=== PATIENT | female | born 1935 | race Two or more races ===

== ENCOUNTER 2017-04-03 08:41 | Inpatient (IN) | payer OTHER, MEDICAID ==
[~2017-04-03] VITALS: Ht 160 cm; Wt 54.4 kg
[2017-04-03 08:37] VITALS: BP 168/84
[2017-04-03] MEDS ORDERED: Cefepime HCl 1 GM in NS 55 ML IV SCH (09:00)
--- NOTE | 2017-04-03 09:11 | Emergency Room Report ---
History of Present Illness General Chief Complaint: Skin Rash/Abscess Source: Patient, EMS Present Illness HPI Patient presents with increasing pain over right lower leg and ankle. She states that there was a burning pain for about 5 days. It became severe in the last 2 days. It's now 5/10 when she stands and walks. She denies any fevers or chills. There's also change in the skin there. She has redness. She does know her last tetanus shot was. Pain is 7/10, burning when she is up, radiating to body, not involving calf. She also suffers from COPD. She denies any chest pain or shortness of breath. She denies cough. HTN and diabetes (though she denied latter to me). There is no nausea, vomiting, diarrhea, dysuria, change in bowel habits. She has 2 scars which are old from mosquito bites. Allergies: Coded Allergies: No Known Allergies (Unverified , 04/03/17) Patient History Past Medical History: see triage record Social History: Denies: smoking Social History Narrative with son Reviewed Nursing Documentation: PMH: Agreed, PSxH: Agreed Nursing Documentation-PMH Past Medical History: No History, Except For Hx Hypertension: Yes Hx Asthma: Yes Hx Diabetes: Yes Review of Systems All Other Systems: negative except mentioned in HPI Physical Exam Vital Signs Date Time Temp Pulse Resp B/P (MAP) Pulse Ox O2 Delivery O2 Flow Rate FiO2 04/03/17 08:37 98.4 70 20 168/84 100 Room Air Sp02 EP Interpretation: reviewed, normal General Appearance: GCS 15, thin, other - frail Head: normocephalic Eyes: bilateral eye normal inspection, bilateral eye PERRL ENT: moist mucus membranes Neck: supple Respiratory: lungs clear, normal breath sounds Cardiovascular #1: regular rate, rhythm Cardiovascular #2: 2+ radial (R) Gastrointestinal: normal inspection, normal bowel sounds, non tender, no mass, non-distended Musculoskeletal: back normal, normal range of motion, no calf tenderness, tender - with erythema anterior R lower with tender ankle Neurologic: alert, oriented x3, speech normal, grossly normal Psychiatric: mood/affect normal Skin: warm/dry, other - Present in the right lower extremity extending into the mid anterior lower leg. There is also scars bilaterally which he states are from mosquito bites when she was younger. Medical Decision Making Diagnostic Impression: Primary Impression: Cellulitis Qualified Codes: L03.115 - Cellulitis of right lower limb ER Course Patient presents with obvious cellulitis in the right lower leg. Differential also includes osteomyelitis, diabetes, renal dysfunction, DVT. Exam is against DVT at this time and also this doesn't appear to be superficial phlebitis. The patient has several comorbidities. Evaluation will be with sedimentation rate, x-rays, EKG and labs including blood culture lactate. Antibiotics will be started IV. EKG below, no acute injury. CXR with apical scars R and some COPD (min). Tib fib no osteo. Labs with leukocytosis, normal lytes. ESR elevated. Improved with treatment. IV antibiotics begun. Due to co-morbidities and how this appears/labs, patient admitted for IV antibiotics. Admit med Dr. Amador. Laboratory Tests Test 04/03/17 09:10 04/03/17 09:40 White Blood Count 10.7 K/UL (4.8-10.8) Red Blood Count 4.03 M/UL (4.20-5.40) L Hemoglobin 11.6 G/DL (12.0-16.0) L Hematocrit 37.1 % (37.0-47.0) Mean Corpuscular Volume 92 FL (80-99) Mean Corpuscular Hemoglobin 28.7 PG (27.0-31.0) Mean Corpuscular Hemoglobin Concent 31.2 G/DL (32.0-36.0) L Red Cell Distribution Width 12.7 % (11.6-14.8) Platelet Count 309 K/UL (150-450) Mean Platelet Volume 6.0 FL (6.5-10.1) L Neutrophils (%) (Auto) 77.0 % (45.0-75.0) H Lymphocytes (%) (Auto) 12.0 % (20.0-45.0) L Monocytes (%) (Auto) 9.9 % (1.0-10.0) Eosinophils (%) (Auto) 0.3 % (0.0-3.0) Basophils (%) (Auto) 0.8 % (0.0-2.0) Erythrocyte Sedimentation Rate 80 MM/HR (0-30) H Prothrombin Time 9.4 SEC (9.30-11.50) Prothrombin Time INR 0.9 (0.9-1.1) PTT 27 SEC (23-33) Sodium Level 142 mEQ/L (135-145) Potassium Level 4.4 mEQ/L (3.4-4.9) Chloride Level 101 mEQ/L (98-107) Carbon Dioxide Level 27 mEQ/L (20-30) Anion Gap 14 (5-15) Blood Urea Nitrogen 14 mg/dL (7-23) Creatinine 0.8 mg/dL (0.5-0.9) Estimate Glomerular Filtration Rate mL/min (>60) Glucose Level 135 mg/dL (74-106) H Lactic Acid Level 0.90 mmol/L (0.66-2.22) Calcium Level 9.5 mg/dL (8.6-10.2) Total Bilirubin 0.4 mg/dL (0.0-1.2) Aspartate Amino Transferase (AST) 21 U/L (5-40) Alanine Aminotransferase (ALT) 13 U/L (3-33) Alkaline Phosphatase 75 U/L (35-104) Total Creatine Kinase 91 U/L (26-140) Troponin I < 0.30 ng/mL (<=0.30) Pro-B-Type Natriuretic Peptide 460 pg/mL (0-450) H Total Protein 7.8 g/dL (6.6-8.7) Albumin 4.3 g/dL (3.5-5.2) Globulin 3.5 g/dL Albumin/Globulin Ratio 1.2 (1.0-2.7) Urine Color Yellow Urine Appearance Cloudy Urine pH 7 (4.5-8.0) Urine Specific [place] 1.005 (1.005-1.035) Urine Protein 3+ (NEGATIVE) H Urine Glucose (UA) Negative (NEGATIVE) Urine Ketones Negative (NEGATIVE) Urine Occult Blood 1+ (NEGATIVE) H Urine Nitrite Negative (NEGATIVE) Urine Bilirubin Negative (NEGATIVE) Urine Urobilinogen Normal MG/DL (0.0-1.0) Urine Leukocyte Esterase 1+ (NEGATIVE) H Urine RBC 0-2 /HPF (0 - 2) Urine WBC 2-4 /HPF (0 - 2) Urine Squamous Epithelial Cells Moderate /LPF (NONE/OCC) H Urine Bacteria Few /HPF (NONE) Urine Hyaline Casts 2-4 /LPF (NONE) H EKG Diagnostic Results Rate: normal Rhythm: NSR ST Segments: no acute changes Rhythm Strip Diag. Results EP Interpretation: yes Rhythm: NSR, no PVC's, no ectopy Chest X-Ray Diagnostic Results Chest X-Ray Diagnostic Results : Chest X-Ray Ordered: Yes # of Views/Limited/Complete: 1 View Indication: Other Interpretation: no consolidation, no effusion, no pneumothorax, other - apical scarring Impression: Other Electronically Signed by: Electronically signed by Michael Milton MD Other X-Ray Diagnostic Results Other X-Ray Diagnostic Results : X-Ray ordered: tib fib # of Views/Limited Vs Complete: 2 View Indication: Other EP Interpretation: Yes Interpretation: no dislocation, no soft tissue swelling, no fractures, other Impression: Other Electronically Signed by: Michael Milton MD Last Vital Signs Date Time Temp Pulse Resp B/P (MAP) Pulse Ox O2 Delivery O2 Flow Rate FiO2 04/03/17 22:01 86 18 97 Room Air 04/03/17 20:00 97.3 129/61 Status: improved Disposition: ADMITTED INPATIENT Condition: Serious Referrals: NOT CHOSEN MYNOR/,REFERRING (PCP) Michael Milton M.D. Apr 03, 2017 09:11
[2017-04-03] MEDS ORDERED: Tetanus/Diptheria/Pertussis Vaccine 0.5ml Syr IM ONE (09:15)
[2017-04-03] MEDS ORDERED: Ketorolac 30mg Inj IV ONE (09:15)
[2017-04-03] MEDS ORDERED: Cefepime 1gm vial ONE (09:19)
[2017-04-03] MEDS ORDERED: OMEPRAZOLE10 M1 ORAL (09:27)
[2017-04-03] MEDS ORDERED: ALBUTEROL2.5 MG/3 M INH (09:27)
[2017-04-03] MEDS ORDERED: METFORMIN HCL500 M1 ORAL (09:27)
[2017-04-03 09:35] LABS: BASOPHILS % (AUTO) 0.8 % (0.0-2.0); EOSINOPHILS % (AUTO) 0.3 % (0.0-3.0); MEAN CORPUSCULAR HEMOGLOBIN 28.7 PG (27.0-31.0); MEAN CORPUSCULAR HGB CONC 31.2 G/DL (32.0-36.0); MEAN CORPUSCULAR VOLUME 92 FL (80-99); MONOCYTES % (AUTO) 9.9 % (1.0-10.0); PLATELET COUNT 309 K/UL (150-450); RED BLOOD COUNT 4.03 M/UL (4.20-5.40); RED CELL DISTRIBUTION WIDTH 12.7 % (11.6-14.8); WHITE BLOOD COUNT 10.7 K/UL (4.8-10.8)
[2017-04-03 09:46] LABS: ALANINE AMINOTRANSFERASE 13 U/L (3-33); ALBUMIN/GLOBULIN RATIO 1.2 (1.0-2.7); ANION GAP 14 (5-15); ASPARTATE AMINO TRANSFERASE 21 U/L (5-40); CALCIUM 9.5 mg/dL (8.6-10.2); CARBON DIOXIDE 27 mEQ/L (20-30); CHLORIDE 101 mEQ/L (98-107); CREATININE 0.8 mg/dL (0.5-0.9); HEMOLYSIS 1; POTASSIUM 4.4 mEQ/L (3.4-4.9); SODIUM 142 mEQ/L (135-145); TOTAL PROTEIN 7.8 g/dL (6.6-8.7); TROPONIN I < 0.30 ng/mL (<=0.30)
[2017-04-03 09:50] LABS: INR 0.9 (0.9-1.1); PROTHROMBIN TIME 9.4 SEC (9.30-11.50)
[2017-04-03 09:55] VITALS: BP 134/47
[2017-04-03 10:01] LABS: APPEARANCE,URINE CLOUDY; KETONES,URINE NEGATIVE (NEGATIVE); LEUKOCYTE ESTERASE ,URINE 1+ (NEGATIVE); NITRITE,URINE NEGATIVE (NEGATIVE); PH,URINE 7 (4.5-8.0); PROTEIN,URINE 3+ (NEGATIVE); UROBILINOGEN,URINE NORMAL MG/DL (0.0-1.0)
[2017-04-03] MEDS ORDERED: LOSARTAN POTASS25 M1 PO (10:28)
[2017-04-03] MEDS ORDERED: MONTELUKAST SOD10 MG ORAL (10:28)
[2017-04-03] MEDS ORDERED: NORVASC10 MG ORAL (10:28)
[2017-04-03] MEDS ORDERED: PROTONIX40 MG ORAL (10:28)
[2017-04-03] MEDS ORDERED: SIMVASTATIN20 MG ORAL (10:28)
[2017-04-03] MEDS ORDERED: PROAIR HFA8.5 GM INH (10:28)
[2017-04-03 10:34] LABS: RBC,URINE 0-2 /HPF (0 - 2)
[2017-04-03 10:35] LABS: BACTERIA,URINE FEW /HPF; SQUAMOUS EPITHELIAL CELL,UR MODERATE /LPF (NONE/OCC)
[2017-04-03 10:40] LABS: ERYTHROCYTE SEDIMENTATION RATE 80 MM/HR (0-30)
--- NOTE | 2017-04-03 11:09 | Diagnostic Imaging Report ---
Indication: Pain Comparison: None Findings: Two views of the right tibia and fibula were obtained. Bones are osteopenic. There is no definite fracture or malalignment. Vascular calcifications are present. Impression: No acute injury
--- NOTE | 2017-04-03 11:09 | Diagnostic Imaging Report ---
Indication: Dyspnea Comparison: None A single view chest radiograph was obtained. Findings: No definite infiltrate or pulmonary vascular congestion identified. The heart is enlarged. The aorta is mildly enlarged consistent with atherosclerotic vascular disease. The bones are osteopenic. Impression: No acute disease
[2017-04-03 11:14] VITALS: BP 132/56
[2017-04-03 12:43] VITALS: BP 124/48
[2017-04-03] MEDS ORDERED: Vancomycin 1gm/D5W 275ml IVPB ONE ×2 (15:00)
[2017-04-03 16:00] VITALS: BP 121/53
[2017-04-03] MEDS: Albuterol 90mcg Inhaler 8gm INH SCH ×2 (16:00→19:00)
[2017-04-03] MEDS ORDERED: Albuterol ud Inhalation HHN PRN (16:00)
[2017-04-03] MEDS: NovoLOG Insulin Flexpen SUBQ SCH ×2 (16:30→21:00)
--- NOTE | 2017-04-03 16:45 | Infectious Diseases Prog Note ---
Assessment/Plan Problems: (1) Cellulitis Assessment & Plan: of the right lower extremities , will start vancomycin, continue cefepime and stop levaquin. will send blood culture to rule out sepsis (2) Diabetes mellitus Assessment & Plan: recommend tight glycemic control to keep blood glucose between 80-120 Subjective Allergies: Coded Allergies: No Known Allergies (Unverified , 04/03/17) Objective Vital Signs Last 24 Hour Vital Signs Date Time Temp Pulse Resp B/P (MAP) Pulse Ox O2 Delivery O2 Flow Rate FiO2 04/03/17 16:00 99.9 77 20 121/53 95 Room Air 04/03/17 13:06 74 17 116/47 99 Room Air 04/03/17 12:43 98.6 75 19 124/48 99 Room Air 04/03/17 11:14 98.6 81 16 132/56 100 Room Air 04/03/17 09:55 98.4 80 14 134/47 100 Room Air 04/03/17 08:37 98.4 70 20 168/84 100 Room Air 04/03/17 08:37 98.4 70 20 168/84 100 Room Air Height (Feet): 5 Height (Inches): 3.00 Weight (Pounds): 120 Laboratory Tests Test 04/03/17 09:10 04/03/17 09:40 White Blood Count 10.7 K/UL (4.8-10.8) Red Blood Count 4.03 M/UL (4.20-5.40) L Hemoglobin 11.6 G/DL (12.0-16.0) L Hematocrit 37.1 % (37.0-47.0) Mean Corpuscular Volume 92 FL (80-99) Mean Corpuscular Hemoglobin 28.7 PG (27.0-31.0) Mean Corpuscular Hemoglobin Concent 31.2 G/DL (32.0-36.0) L Red Cell Distribution Width 12.7 % (11.6-14.8) Platelet Count 309 K/UL (150-450) Mean Platelet Volume 6.0 FL (6.5-10.1) L Neutrophils (%) (Auto) 77.0 % (45.0-75.0) H Lymphocytes (%) (Auto) 12.0 % (20.0-45.0) L Monocytes (%) (Auto) 9.9 % (1.0-10.0) Eosinophils (%) (Auto) 0.3 % (0.0-3.0) Basophils (%) (Auto) 0.8 % (0.0-2.0) Erythrocyte Sedimentation Rate 80 MM/HR (0-30) H Prothrombin Time 9.4 SEC (9.30-11.50) Prothromb Time International Ratio 0.9 (0.9-1.1) Activated Partial Thromboplast Time 27 SEC (23-33) Sodium Level 142 mEQ/L (135-145) Potassium Level 4.4 mEQ/L (3.4-4.9) Chloride Level 101 mEQ/L (98-107) Carbon Dioxide Level 27 mEQ/L (20-30) Anion Gap 14 (5-15) Blood Urea Nitrogen 14 mg/dL (7-23) Creatinine 0.8 mg/dL (0.5-0.9) Estimat Glomerular Filtration Rate mL/min (>60) Glucose Level 135 mg/dL (74-106) H Lactic Acid Level 0.90 mmol/L (0.66-2.22) Calcium Level 9.5 mg/dL (8.6-10.2) Total Bilirubin 0.4 mg/dL (0.0-1.2) Aspartate Amino Transf (AST/SGOT) 21 U/L (5-40) Alanine Aminotransferase (ALT/SGPT) 13 U/L (3-33) Alkaline Phosphatase 75 U/L (35-104) Total Creatine Kinase 91 U/L (26-140) Troponin I < 0.30 ng/mL (<=0.30) Pro-B-Type Natriuretic Peptide 460 pg/mL (0-450) H Total Protein 7.8 g/dL (6.6-8.7) Albumin 4.3 g/dL (3.5-5.2) Globulin 3.5 g/dL Albumin/Globulin Ratio 1.2 (1.0-2.7) Urine Color Yellow Urine Appearance Cloudy Urine pH 7 (4.5-8.0) Urine Specific [place] 1.005 (1.005-1.035) Urine Protein 3+ (NEGATIVE) H Urine Glucose (UA) Negative (NEGATIVE) Urine Ketones Negative (NEGATIVE) Urine Occult Blood 1+ (NEGATIVE) H Urine Nitrite Negative (NEGATIVE) Urine Bilirubin Negative (NEGATIVE) Urine Urobilinogen Normal MG/DL (0.0-1.0) Urine Leukocyte Esterase 1+ (NEGATIVE) H Urine RBC 0-2 /HPF (0 - 2) Urine WBC 2-4 /HPF (0 - 2) Urine Squamous Epithelial Cells Moderate /LPF (NONE/OCC) H Urine Bacteria Few /HPF (NONE) Urine Hyaline Casts 2-4 /LPF (NONE) H Current Medications Medications (Trade) Dose Ordered Sig/Lora Route PRN Reason Start Time Stop Time Status Last Admin Dose Admin Acetaminophen (Tylenol) 650 mg Q4H PRN ORAL Mild Pain/Temp > 100.5 04/03/17 14:30 05/03/17 14:29 Albuterol Sulfate (Proventil MDI) 1 puff Q6HRT INH 04/03/17 16:00 05/03/17 15:59 Albuterol Sulfate (Proventil) 2.5 mg Q4H PRN HHN Shortness of Breath 04/03/17 16:00 04/08/17 15:59 Amlodipine Besylate (Norvasc) 10 mg DAILY ORAL 04/04/17 09:00 05/04/17 08:59 Dextrose (Dextrose 50%) STAT PRN IV Hypoglycemia 04/03/17 14:30 05/03/17 14:29 Insulin Aspart (NovoLOG) BEFORE MEALS AND HS SUBQ 04/03/17 16:30 05/03/17 16:29 Losartan Potassium (Cozaar) 25 mg DAILY ORAL 04/04/17 09:00 05/04/17 08:59 Metformin HCl (Glucophage) 500 mg TWICE A DAY ORAL 04/03/17 18:00 05/03/17 17:59 Montelukast Sodium (Singulair) 10 mg QPM ORAL 04/03/17 16:30 05/03/17 16:29 Pantoprazole (Protonix) 40 mg DAILY ORAL 04/04/17 09:00 05/04/17 08:59 Vancomycin HCl (Vanco rx to dose) 1 ea DAILY PRN MISC Per rx protocol 04/03/17 14:15 05/03/17 14:14 Vancomycin/Sodium Chloride 250 ml @ 166.667 mls/hr Q24H IVPB 04/04/17 15:00 04/09/17 14:59 Jacey Child M.D. Apr 03, 2017 16:44
[2017-04-03] MEDS: Montelukast 10mg tablet ORAL SCH (18:07)
[2017-04-03] MEDS: metFORMIN 500mg tab ORAL SCH (18:07)
[2017-04-03 20:00] VITALS: BP 129/61
[2017-04-04] VITALS: BP 124/60
[2017-04-04] MEDS: Albuterol 90mcg Inhaler 8gm INH SCH ×5 (01:00→23:07)
--- NOTE | 2017-04-04 01:45 | Consultation ---
DATE OF CONSULTATION: 04/03/2017 INFECTIOUS DISEASE CONSULTATION CONSULTING PHYSICIAN: Jacey Child M.D. ATTENDING PHYSICIAN: Christina Amador M.D. REQUESTING PHYSICIAN: Christina Amador M.D. Reason For Consultation: Right lower extremity cellulitis, recommendation for antibiotic therapy. History Of Present Illness: The patient is an 81-year-old female with past medical history of diabetes and asthma, who presented to [facility] Emergency Room with right lower extremity redness, edema, and difficulty walking. This started about 3 days ago as per her son who was translating at the bedside. The patient developed redness and erythema at the lower posterior aspect of her right leg. She was unable to put weight or walk well on it. It became red and tender. She had low-grade fever, but no chills. The patient denied any trauma, wounds, or scratching to the right lower extremity. She had cellulitis in the same leg happened a couple of months ago. In the emergency room, the patient had normal temperature. The patient was admitted to the hospital for IV antibiotic treatment and further management, and I was consulted by the primary provider for antibiotic choice and further recommendation. PAST MEDICAL HISTORY: Significant for asthma and diabetes. PAST SURGICAL HISTORY: Negative. Family History: She lives at home with her son. No recent drugs, tobacco, or alcohol. ALLERGIES: She has no known drug allergy. Medications: The patient was started on cefepime and Levaquin in the emergency room. For the rest of her medications, please refer to MAR. Laboratory Data: Labs showed white count of 10.7, hemoglobin of 11.6, and platelet count of 309,000. BUN of 14, creatinine of 0.8. AST of 21, ALT of 13. Urinalysis showed negative nitrite, +1 leukocyte esterase, WBC 2 to 4, and a few bacteria. IMAGING: Chest x-ray showed no acute disease. Tibia and fibula x-ray showed no acute injury. No definite fracture or malalignment. PHYSICAL EXAMINATION: Vital signs: Temperature 99.9, pulse 77, respirations 20, blood pressure 121/53, and saturation 95% on room air. General: An elderly female, Wallisian speaker, lying in bed, not in distress. HEENT: Normocephalic, atraumatic. Pupils are reactive to light. Moist oral mucosa. NECK: Supple. No lymphadenopathy. CARDIOVASCULAR: Regular rate and rhythm. No murmur. LUNGS: Clear bilaterally. No wheezing or rhonchi. Abdomen: Soft, nontender, nondistended. Positive bowel sounds. No hepatosplenomegaly. Extremities: She had redness and edema in the right lower extremity above the Achilles tendon and redness with tenderness and decreased range of motion in the right ankle. ASSESSMENT AND RECOMMENDATION: 1. Right lower extremity cellulitis. We will start vancomycin and continue cefepime empiric treatment to treat cellulitis in diabetic patient. We will stop levofloxacin. We will send blood culture to rule out bacteremia. 2. Diabetes. Recommend tight glycemic control to keep blood glucose between 80 to 120. Thank you for the consult. Infectious diseases will continue to follow. Jacey Child M.D. DR: Dennis JOB#: [id number] CC:
[2017-04-04 04:53] VITALS: BP 127/60
[2017-04-04] MEDS: NovoLOG Insulin Flexpen SUBQ SCH ×4 (06:19→20:17)
[2017-04-04 08:00] VITALS: BP 133/64
[2017-04-04] MEDS: Losartan 25mg tab ORAL SCH (10:19)
[2017-04-04] MEDS: metFORMIN 500mg tab ORAL SCH ×2 (10:19→18:05)
[2017-04-04 12:00] VITALS: BP 132/70
[2017-04-04] MEDS: Vancomycin 750mg/NS 250ml IVPB SCH (15:03)
[2017-04-04 16:00] VITALS: BP 132/77
[2017-04-04] MEDS: Montelukast 10mg tablet ORAL SCH (17:14)
--- NOTE | 2017-04-04 17:45 | Infectious Diseases Prog Note ---
Assessment/Plan Problems: (1) Cellulitis Assessment & Plan: of the right lower extremities , continue vancomycin, and cefepime , await blood culture to rule out sepsis (2) Diabetes mellitus Assessment & Plan: recommend tight glycemic control to keep blood glucose between 80-120 Subjective Constitutional: Reports: no symptoms HEENT: Reports: no symptoms Respiratory: Reports: no symptoms Breasts: Reports: no symptoms Cardiovascular: Reports: no symptoms Gastrointestinal/Abdominal: Reports: no symptoms Neurologic: Reports: no symptoms Psychiatric: Reports: no symptoms Skin: Reports: no symptoms Allergies: Coded Allergies: No Known Allergies (Unverified , 04/03/17) Objective Vital Signs Last 24 Hour Vital Signs Date Time Temp Pulse Resp B/P (MAP) Pulse Ox O2 Delivery O2 Flow Rate FiO2 04/04/17 16:00 96.9 89 18 132/77 97 Room Air 04/04/17 13:52 76 18 98 Room Air 04/04/17 13:45 87 16 99 Room Air 04/04/17 12:00 95.0 97 22 132/70 95 Room Air 04/04/17 10:19 144/69 04/04/17 10:19 84 144/69 04/04/17 08:00 99.0 95 18 133/64 91 Room Air 04/04/17 07:44 77 16 97 Room Air 04/04/17 07:44 Room Air 04/04/17 04:53 97.8 85 20 127/60 94 Room Air 04/04/17 01:21 Room Air 04/04/17 01:20 Room Air 04/04/17 00:00 97.4 84 18 124/60 96 Room Air 04/03/17 22:01 86 18 97 Room Air 04/03/17 22:01 86 18 97 04/03/17 21:59 86 18 98 Room Air 04/03/17 20:00 97.3 86 18 129/61 95 Room Air Height (Feet): 5 Height (Inches): 3.00 Weight (Pounds): 120 General Appearance: WD/WN, no acute distress HEENT: normocephalic, atraumatic, anicteric Respiratory/Chest: chest wall non-tender, lungs clear, normal breath sounds Cardiovascular: normal peripheral pulses, normal rate, regular rhythm Abdomen: normal bowel sounds, soft, non tender, no organomegaly, non distended , no mass, no scars Extremities: no cyanosis, no clubbing, other - right leg redness and swelling Skin: no rash, no lesions Current Medications Medications (Trade) Dose Ordered Sig/Lora Route PRN Reason Start Time Stop Time Status Last Admin Dose Admin Acetaminophen (Tylenol) 650 mg Q4H PRN ORAL Mild Pain/Temp > 100.5 04/03/17 14:30 05/03/17 14:29 Albuterol Sulfate (Proventil MDI) 1 puff Q6HRT INH 04/03/17 16:00 05/03/17 15:59 04/04/17 13:50 Albuterol Sulfate (Proventil) 2.5 mg Q4H PRN HHN Shortness of Breath 04/03/17 16:00 04/08/17 15:59 Amlodipine Besylate (Norvasc) 10 mg DAILY ORAL 04/04/17 09:00 05/04/17 08:59 04/04/17 10:19 Dextrose (Dextrose 50%) STAT PRN IV Hypoglycemia 04/03/17 14:30 05/03/17 14:29 Insulin Aspart (NovoLOG) BEFORE MEALS AND HS SUBQ 04/03/17 16:30 05/03/17 16:29 Losartan Potassium (Cozaar) 25 mg DAILY ORAL 04/04/17 09:00 05/04/17 08:59 04/04/17 10:19 Metformin HCl (Glucophage) 500 mg TWICE A DAY ORAL 04/03/17 18:00 05/03/17 17:59 04/04/17 10:19 Montelukast Sodium (Singulair) 10 mg QPM ORAL 04/03/17 16:30 05/03/17 16:29 04/04/17 17:14 Pantoprazole (Protonix) 40 mg ACBREAKFAST ORAL 04/05/17 06:30 05/04/17 08:59 Vancomycin HCl (Vanco rx to dose) 1 ea DAILY PRN MISC Per rx protocol 04/03/17 14:15 05/03/17 14:14 Vancomycin/Sodium Chloride 250 ml @ 166.667 mls/hr Q24H IVPB 04/04/17 15:00 04/09/17 14:59 04/04/17 15:03 Jacey Child M.D. Apr 04, 2017 17:45
[2017-04-04] MEDS: Cefepime HCl 1 GM in D5W 55 ML IVPB SCH (19:00)
[2017-04-04] MEDS ORDERED: NS 275ml ONE (19:58)
[2017-04-04] MEDS ORDERED: Tubing IV Secondary IV ONE (19:58)
[2017-04-04 20:00] VITALS: BP 130/58
--- NOTE | 2017-04-04 22:45 | History and Physical Report ---
DATE OF ADMISSION: 04/03/2017 Reason For Admission/History of Present Illness: The patient is admitted for cellulitis of the right leg. The patient speaks Amharic. The history is obtained through a travel rn. The patient complains of pain in the right lower extremity and difficulty walking because of the pain for the past couple of days. The patient denies fever or chills. Denies nausea, vomiting, or diarrhea. Denies abdominal pain. Denies shortness of breath. Denies cough. Past Medical History: Significant for hypertension, NIDDM, asthma, GERD, hyperlipidemia, and cataract. Past Surgical History: Oophorectomy, hysterectomy, and cataract surgery. Medications: Amlodipine, losartan, metformin, montelukast, omeprazole, and simvastatin. ALLERGIES: No known allergies. Social History: Denies history of smoking. No history of alcohol or illicit drugs. Review of Systems: HEENT: Denies headaches. Respiratory: Denies shortness of breath. Denies cough. Cardiovascular: Denies chest pain. Gastrointestinal: Denies nausea, vomiting, or diarrhea. Extremities: There is right lower extremity pain more than the left lower extremity pain and difficulty walking because of the pain. Central Nervous System: No change in vision or speech pattern. Denies headache. PHYSICAL EXAMINATION: Vital Signs: Basically temperature is 97.4 degrees, pulse 84, and blood pressure 124/60. HEENT: PERRLA. NECK: Supple. No lymphadenopathy. CHEST: Clear to auscultation. Gastrointestinal: Soft, nontender, and nondistended. No organomegaly. EXTREMITIES: No edema. Moves all 4 extremities. SENSORY: Intact to light touch. Neurologic: Reflexes are equal on both sides. Lower extremity mild tenderness on the right lower leg as well as erythema and warmth to touch in the bilateral lower extremity, otherwise, moves all 4 extremities. Cranial nerves II through XII are intact except the patient does have poor vision. Laboratory And Diagnostic Data: WBC of 10.7, hemoglobin 11.6, and platelets of 309,000. Sodium 142, potassium 4.4, BUN of 14, creatinine 0.8, and glucose of 125. BNP of 460. Assessment And Plan: Elevated BNP. I have asked rn pediatric to see the patient for that reason, and for the cellulitis of right lower extremity, consult with Dr. Child. The patient has a history of chronic deep vein thrombosis. For that, I have consulted Dr. Jeffries to see if the patient has any acute deep vein thrombosis or not. Christina Amador M.D. DR: CORONA JOB#: [id number] CC:
[2017-04-05] VITALS (7 sets, daily range): BP systolic 110–136; BP diastolic 51–67
[2017-04-05] MEDS: NovoLOG Insulin Flexpen SUBQ SCH ×4 (05:50→20:00)
[2017-04-05] MEDS: Albuterol 90mcg Inhaler 8gm INH SCH ×3 (07:40→19:35)
[2017-04-05] MEDS: Losartan 25mg tab ORAL SCH (09:00)
--- NOTE | 2017-04-05 09:15 | Consultation ---
DATE OF CONSULTATION: 04/04/2017 NOTE: POOR AUDIO QUALITY HEMATOLOGY/ONCOLOGY CONSULTATION CONSULTING PHYSICIAN: Rigo Jeffries M.D. REFERRING PHYSICIAN: Christina Amador M.D. REASON FOR CONSULTATION: Evaluation of DVT history. IDENTIFICATION DATA: Dear Dr. Christina Amador, The patient is a pleasant 81-year-old female who I have seen before. She has a past medical history, which is significant for DVT of the right upper and lower extremity, at this time presents to [facility] with right lower extremity redness, weakness, and difficulty with walking, developed redness and weakness on the right side of her leg posteriorly, unable to put weight on it. It became red and tender. Low-grade fever noted, has several months ago, had normal temperature, admitted to the hospital for IV antibiotics and further management. PAST MEDICAL HISTORY: Asthma and diabetes mellitus. PAST SURGICAL HISTORY: None known. MEDICATIONS: Current medications have been reviewed. . ALLERGIES: No known drug allergies. SOCIAL HISTORY: No recent alcohol, tobacco, or illicit drug use. FAMILY HISTORY: Noncontributory. Review of systems: Twelve-point review of systems otherwise negative except as noted in the HPI. PHYSICAL EXAMINATION: GENERAL: The patient is in no acute distress. Vital signs: Temperature is 98 degrees Fahrenheit, pulse rate 70, respiratory rate 12, and blood pressure 126/62. PULMONARY: Decreased breath sounds. Some crackles noted. CARDIOVASCULAR: Regular rate. No S3 or S4. Abdomen: Soft, nontender, and nondistended. Positive bowel sounds. No hepatosplenomegaly noted. Laboratory data: WBC 10.7, hemoglobin 11.6, hematocrit 34, and platelet count 309,000. noted for UTI. ASSESSMENT AND PLAN: 1. Deep venous thrombosis history. Duplex of the lower extremity ordered and revealed . She was recanalized superficial femoral popliteal vein. She does not require anticoagulation. She does not have a deep venous thrombosis on the that side . 2. Right lower extremity cellulitis, on antibiotics as per ID service. 3. Diabetes mellitus. Tight glucose control between 80 and 120. A1c is pending. 4. Continue to closely monitor her antibiotics. I appreciate the consultation. Rigo Jeffries M.D. DR: Tiffanie JOB#: [id number] CC:
[2017-04-05] MEDS: metFORMIN 500mg tab ORAL SCH ×2 (09:24→19:00)
[2017-04-05] MEDS: Cefepime HCl 1 GM in D5W 55 ML IVPB SCH ×2 (10:58→20:04)
[2017-04-05] MEDS: Vancomycin 750mg/NS 250ml IVPB SCH (15:16)
[2017-04-05] MEDS: Montelukast 10mg tablet ORAL SCH (17:41)
--- NOTE | 2017-04-05 19:15 | Infectious Diseases Prog Note ---
Assessment/Plan Problems: (1) Cellulitis Assessment & Plan: of the right lower extremities , improving on vancomycin, and cefepime , await blood culture to rule out sepsis (2) Diabetes mellitus Assessment & Plan: recommend tight glycemic control to keep blood glucose between 80-120 (3) Achilles tendinitis Assessment & Plan: recommend grocery clerk checking eval Subjective Constitutional: Reports: no symptoms HEENT: Reports: no symptoms Respiratory: Reports: no symptoms Breasts: Reports: no symptoms Cardiovascular: Reports: no symptoms Gastrointestinal/Abdominal: Reports: no symptoms Genitourinary: Reports: no symptoms Neurologic: Reports: no symptoms Musculoskeletal: Reports: pain Allergies: Coded Allergies: No Known Allergies (Unverified , 04/03/17) Objective Vital Signs Last 24 Hour Vital Signs Date Time Temp Pulse Resp B/P (MAP) Pulse Ox O2 Delivery O2 Flow Rate FiO2 04/05/17 16:00 99.0 79 19 126/55 95 Room Air 04/05/17 13:32 85 16 97 Room Air 04/05/17 13:32 88 16 97 Room Air 04/05/17 12:00 98.4 81 17 119/56 96 Room Air 04/05/17 09:14 82 110/67 04/05/17 09:00 110/67 04/05/17 09:00 82 110/67 04/05/17 08:00 98.1 81 18 125/62 96 Room Air 04/05/17 07:41 75 16 96 Room Air 04/05/17 07:38 75 16 95 Room Air 04/05/17 04:00 98.2 74 18 118/53 94 Room Air 04/05/17 00:00 98.1 75 19 120/51 93 Room Air 04/04/17 23:09 Room Air 04/04/17 20:11 Room Air 04/04/17 20:11 89 16 95 Room Air 04/04/17 20:00 101.7 87 19 130/58 95 Room Air Height (Feet): 5 Height (Inches): 3.00 Weight (Pounds): 120 General Appearance: WD/WN, no acute distress HEENT: normocephalic, atraumatic, anicteric, mucous membranes moist Respiratory/Chest: chest wall non-tender, lungs clear, normal breath sounds, no respiratory distress Cardiovascular: normal peripheral pulses, normal rate, regular rhythm, no gallop/murmur, no JVD Abdomen: normal bowel sounds, soft, non tender, no organomegaly, non distended , no mass Extremities: no cyanosis, no clubbing Skin: no rash, no lesions, no ulcers Microbiology Date/Time Source Procedure Growth Status 04/03/17 09:10 Blood Blood Culture - Preliminary NO GROWTH AFTER 24 HOURS Resulted 04/03/17 08:55 Blood Blood Culture - Preliminary NO GROWTH AFTER 24 HOURS Resulted Current Medications Medications (Trade) Dose Ordered Sig/Lora Route PRN Reason Start Time Stop Time Status Last Admin Dose Admin Acetaminophen (Tylenol) 650 mg Q4H PRN ORAL Mild Pain/Temp > 100.5 04/03/17 14:30 05/03/17 14:29 Albuterol Sulfate (Proventil MDI) 1 puff Q6HRT INH 04/03/17 16:00 05/03/17 15:59 04/05/17 13:30 Albuterol Sulfate (Proventil) 2.5 mg Q4H PRN HHN Shortness of Breath 04/03/17 16:00 04/08/17 15:59 Amlodipine Besylate (Norvasc) 10 mg DAILY ORAL 04/04/17 09:00 05/04/17 08:59 04/04/17 10:19 Cefepime HCl 1 gm/ Dextrose 55 ml @ 110 mls/hr EVERY 12 HOURS IVPB 04/04/17 19:00 04/11/17 18:59 04/05/17 10:58 Dextrose (Dextrose 50%) STAT PRN IV Hypoglycemia 04/03/17 14:30 05/03/17 14:29 Insulin Aspart (NovoLOG) BEFORE MEALS AND HS SUBQ 04/03/17 16:30 05/03/17 16:29 Losartan Potassium (Cozaar) 25 mg DAILY ORAL 04/04/17 09:00 05/04/17 08:59 04/04/17 10:19 Metformin HCl (Glucophage) 500 mg TWICE A DAY ORAL 04/03/17 18:00 05/03/17 17:59 04/05/17 19:00 Montelukast Sodium (Singulair) 10 mg QPM ORAL 04/03/17 16:30 05/03/17 16:29 04/05/17 17:41 Pantoprazole (Protonix) 40 mg ACBREAKFAST ORAL 04/05/17 06:30 05/04/17 08:59 04/05/17 05:49 Vancomycin HCl (Vanco rx to dose) 1 ea DAILY PRN MISC Per rx protocol 04/03/17 14:15 05/03/17 14:14 Vancomycin/Sodium Chloride 250 ml @ 166.667 mls/hr Q24H IVPB 04/04/17 15:00 04/09/17 14:59 04/05/17 15:16 Jacey Child M.D. Apr 05, 2017 19:15
--- NOTE | 2017-04-05 20:43 | General Progress Note ---
Assessment/Plan Problem List: (1) Cellulitis ICD Codes: L03.90 - Cellulitis, unspecified SNOMED: 807583850 Qualifiers: Qualified Codes: L03.115 - Cellulitis of right lower limb (2) Diabetes mellitus ICD Codes: E11.9 - Type 2 diabetes mellitus without complications SNOMED: 74735239 (3) Achilles tendinitis ICD Codes: M76.60 - Achilles tendinitis, unspecified leg SNOMED: 77529914 Status: progressing Assessment/Plan tendinitis achilles consulted podiatry cellulitis improving Subjective ROS Limited/Unobtainable: Yes Allergies: Coded Allergies: No Known Allergies (Unverified , 04/03/17) Objective Last 24 Hour Vital Signs Date Time Temp Pulse Resp B/P (MAP) Pulse Ox O2 Delivery O2 Flow Rate FiO2 04/05/17 20:00 97.3 96 18 136/63 97 Room Air 04/05/17 19:37 90 18 96 Room Air 04/05/17 19:35 90 18 96 Room Air 04/05/17 16:00 99.0 79 19 126/55 95 Room Air 04/05/17 13:32 85 16 97 Room Air 04/05/17 13:32 88 16 97 Room Air 04/05/17 12:00 98.4 81 17 119/56 96 Room Air 04/05/17 09:14 82 110/67 04/05/17 09:00 110/67 04/05/17 09:00 82 110/67 04/05/17 08:00 98.1 81 18 125/62 96 Room Air 04/05/17 07:41 75 16 96 Room Air 04/05/17 07:38 75 16 95 Room Air 04/05/17 04:00 98.2 74 18 118/53 94 Room Air 04/05/17 00:00 98.1 75 19 120/51 93 Room Air 04/04/17 23:09 Room Air Intake and Output 04/05/17 04/06/17 19:00 07:00 Intake Total 750 ml Balance 750 ml Intake Oral 750 ml # Voids 2 Height (Feet): 5 Height (Inches): 3.00 Weight (Pounds): 120 Cardiovascular: normal rate Respiratory/Chest: lungs clear Abdomen: soft Christina Amador MD Apr 05, 2017 20:43
--- NOTE | 2017-04-05 21:07 | General Progress Note ---
Assessment/Plan Assessment/Plan ASSESSMENT AND PLAN: 1. Deep venous thrombosis history. Duplex of the lower extremity ordered and revealed chronic recanalized thrombus. She does not require anticoagulation. 2. Right lower extremity cellulitis, on antibiotics as per ID service. 3. Diabetes mellitus. Tight glucose control between 80 and 120. Subjective Allergies: Coded Allergies: No Known Allergies (Unverified , 04/03/17) All Systems: reviewed and negative except above Subjective no bleeding, no fevers Objective Last 24 Hour Vital Signs Date Time Temp Pulse Resp B/P (MAP) Pulse Ox O2 Delivery O2 Flow Rate FiO2 04/05/17 20:00 97.3 96 18 136/63 97 Room Air 04/05/17 19:37 90 18 96 Room Air 04/05/17 19:35 90 18 96 Room Air 04/05/17 16:00 99.0 79 19 126/55 95 Room Air 04/05/17 13:32 85 16 97 Room Air 04/05/17 13:32 88 16 97 Room Air 04/05/17 12:00 98.4 81 17 119/56 96 Room Air 04/05/17 09:14 82 110/67 04/05/17 09:00 110/67 04/05/17 09:00 82 110/67 04/05/17 08:00 98.1 81 18 125/62 96 Room Air 04/05/17 07:41 75 16 96 Room Air 04/05/17 07:38 75 16 95 Room Air 04/05/17 04:00 98.2 74 18 118/53 94 Room Air 04/05/17 00:00 98.1 75 19 120/51 93 Room Air 04/04/17 23:09 Room Air Intake and Output 04/05/17 04/06/17 19:00 07:00 Intake Total 750 ml Balance 750 ml Intake Oral 750 ml # Voids 2 Height (Feet): 5 Height (Inches): 3.00 Weight (Pounds): 120 General Appearance: no apparent distress EENT: normal ENT inspection Neck: normal alignment Cardiovascular: normal rate Respiratory/Chest: lungs clear Neurologic: outreach rep II-XII grossly normal Skin: normal pigmentation, warm/dry Rigo Jeffries Apr 05, 2017 21:07
[2017-04-06] VITALS: BP 121/71
[2017-04-06] MEDS: Albuterol 90mcg Inhaler 8gm INH SCH ×4 (01:36→19:59)
[2017-04-06 03:36] VITALS: BP 126/55
[2017-04-06] MEDS: NovoLOG Insulin Flexpen SUBQ SCH ×4 (06:28→21:00)
[2017-04-06 08:00] VITALS: BP 123/54
[2017-04-06] MEDS: Losartan 25mg tab ORAL SCH (08:25)
[2017-04-06] MEDS: Cefepime HCl 1 GM in D5W 55 ML IVPB SCH ×2 (08:25→20:40)
[2017-04-06] MEDS: metFORMIN 500mg tab ORAL SCH ×2 (08:26→18:03)
--- NOTE | 2017-04-06 10:09 | Consultation ---
Consult Note Consult Note PODIATRY CONSULTATION DATE: 04/06/17 REASON FOR CONSULT: RIGHT ANKLE PAIN CONSULTING PHYSICIAN: SHILPA MEYERS DPM COVERING FOR: RICHARD WOLFE DPM HISTORY OF PRESENT ILLNESS: History was obtained with use of nurse who helped to translate since patient is Kinyarwanda speaking. Patient is an 81 year old female with history of right ankle pain that started 04/03/17. Patient states she did not experience a fall or any trauma. Patient was walking well without any complications on 04/02/17. Patient was unable to bear weight on the right foot and had difficulty plantarflexing the foot. No recent changes in medication. PAST MEDICAL HISTORY: ASTHMA, T2DM PAST SURGICAL AND FAMILY HISTORY: No significant findings ALLERGIES: No known Last 24 Hour Vital Signs Date Time Temp Pulse Resp B/P (MAP) Pulse Ox O2 Delivery O2 Flow Rate FiO2 04/06/17 08:26 77 128/59 04/06/17 08:25 128/59 04/06/17 08:00 98.2 78 16 123/54 97 Room Air 04/06/17 07:49 75 16 96 Room Air 04/06/17 07:48 77 16 96 Room Air 04/06/17 03:36 97.7 83 20 126/55 95 Room Air 04/06/17 01:37 86 16 96 Room Air 04/06/17 01:36 87 16 96 Room Air 04/06/17 00:00 98.1 87 18 121/71 95 Room Air 04/05/17 20:00 97.3 96 18 136/63 97 Room Air 04/05/17 19:37 90 18 96 Room Air 04/05/17 19:35 90 18 96 Room Air 04/05/17 16:00 99.0 79 19 126/55 95 Room Air 04/05/17 13:32 85 16 97 Room Air 04/05/17 13:32 88 16 97 Room Air 04/05/17 12:00 98.4 81 17 119/56 96 Room Air Microbiology Date/Time Source Procedure Growth Status 04/03/17 09:10 Blood Blood Culture - Preliminary NO GROWTH AFTER 48 HOURS Resulted PHYSICAL EXAM: DERM: Erythema at the posterior right ankle proximal to the insertion of the achilles tendon NEURO: Sensation in tact to light touch VASK: Pedal pulses lightly palpable MSK: Patient has pain with palpation at the distal achilles tendon. Patient is unable to plantarflex the right ankle. Has difficulty with weight bearing on the right foot. Uses walker for ambulation . Assessment/Plan ASSESSMENT: - Right ankle pain along the distal achilles tendon insertion. Patient is unable to plantarflex foot. Possible tear or rupture of the achilles tendon PLAN: - Ordered MRI - Non weight bearing on the right foot Shilpa Meyers DPM Apr 06, 2017 10:09
[2017-04-06 12:00] VITALS: BP 115/61
--- NOTE | 2017-04-06 12:15 | Diagnostic Imaging Report ---
APPROVED REPORT CPT Code: 41043 Present Symptoms Comments: Pain RIGHT LEG: Venous imaging reveals a patent deep venous system. There is no evidence of thrombus within the femoral, popliteal or tibial segments. The greater saphenous vein is also within normal limits. Doppler indicates normal spontaneous flow within these segments. LEFT LEG: Venous imaging reveals recanalized chronic thrombus in the superficial femoral vein and popliteal vein. Large collateral vein noted anterior to the superficial femoral artery. The remainder of the deep venous system is within normal limits. There is no evidence of thrombus in the common femoral, or calf veins. The greater saphenous vein is also within normal limits. Doppler indicates normal spontaneous flow within these segments. There is no evidence of acute deep vein thrombosis.
--- NOTE | 2017-04-06 15:29 | General Progress Note ---
Assessment/Plan Problem List: (1) Cellulitis ICD Codes: L03.90 - Cellulitis, unspecified SNOMED: 984559966 Qualifiers: Qualified Codes: L03.115 - Cellulitis of right lower limb (2) Diabetes mellitus ICD Codes: E11.9 - Type 2 diabetes mellitus without complications SNOMED: 65747031 (3) Achilles tendinitis ICD Codes: M76.60 - Achilles tendinitis, unspecified leg SNOMED: 30235307 Status: progressing Assessment/Plan tendinitis achilles cellutis of le improving afebrile no acute events Subjective ROS Limited/Unobtainable: Yes Allergies: Coded Allergies: No Known Allergies (Unverified , 04/03/17) Objective Last 24 Hour Vital Signs Date Time Temp Pulse Resp B/P (MAP) Pulse Ox O2 Delivery O2 Flow Rate FiO2 04/06/17 13:49 89 20 94 Room Air 04/06/17 13:30 85 16 96 Room Air 04/06/17 12:00 98.2 87 17 115/61 96 Room Air 04/06/17 08:26 77 128/59 04/06/17 08:25 128/59 04/06/17 08:00 98.2 78 16 123/54 97 Room Air 04/06/17 07:49 75 16 96 Room Air 04/06/17 07:48 77 16 96 Room Air 04/06/17 03:36 97.7 83 20 126/55 95 Room Air 04/06/17 01:37 86 16 96 Room Air 04/06/17 01:36 87 16 96 Room Air 04/06/17 00:00 98.1 87 18 121/71 95 Room Air 04/05/17 20:00 97.3 96 18 136/63 97 Room Air 04/05/17 19:37 90 18 96 Room Air 04/05/17 19:35 90 18 96 Room Air 04/05/17 16:00 99.0 79 19 126/55 95 Room Air Laboratory Tests 04/06/17 14:20: Vancomycin Level Trough 7.5 Height (Feet): 5 Height (Inches): 3.00 Weight (Pounds): 120 EENT: PERRL/EOMI Neck: supple Cardiovascular: normal rate Respiratory/Chest: lungs clear Abdomen: soft Christina Amador MD Apr 06, 2017 15:29
[2017-04-06] MEDS: Vancomycin 750mg/NS 250ml IVPB SCH (15:38)
--- NOTE | 2017-04-06 15:44 | Cardiology Report ---
APPROVED REPORT EKG Measurement Heart [id number] IA [id number] Normal sinus rhythm Anterior infarct, age undetermined Abnormal ECG
--- NOTE | 2017-04-06 15:49 | Diagnostic Imaging Report ---
Indication: Right ankle swelling and pain x2 weeks Technique: Sagittal axial and coronal T1 fast spin echo, sagittal T2 fat saturated, axial and coronal FSE STIR,, axial proton density images with and without fat saturation Comparison: Reference made to tibia-fibula radiographs 9 26 x 17 Findings: There are joint effusions involving the tibiotalar joint, the subtalar joint, the calcaneocuboid joint. There is edema of the deep and superficial fat. No focal fluid collections are demonstrated. Small faint patchy areas of increased STIR signal are seen scattered throughout the bones, likely related osteoporotic change. No corresponding T1 abnormality to suggest osteomyelitis. The visualized tendons and ligaments appear intact. Impression: Evidence of soft tissue inflammation. Nonspecific, could indicate cellulitis versus vasculogenic edema Multiple joint effusions, etiology indeterminate No findings to suggest acute osteomyelitis No evidence of ligamentous or tendinous injury or inflammation
[2017-04-06] MEDS: Montelukast 10mg tablet ORAL SCH (18:03)
--- NOTE | 2017-04-06 18:35 | Infectious Diseases Prog Note ---
Assessment/Plan Problems: (1) Cellulitis Assessment & Plan: of the right lower extremities , improving on vancomycin, and cefepime , await blood culture to rule out sepsis (2) Diabetes mellitus Assessment & Plan: recommend tight glycemic control to keep blood glucose between 80-120 (3) Achilles tendinitis Assessment & Plan: mri pending , continue antibiotics Subjective Constitutional: Reports: no symptoms HEENT: Reports: no symptoms Respiratory: Reports: no symptoms Breasts: Reports: no symptoms Cardiovascular: Reports: no symptoms Gastrointestinal/Abdominal: Reports: no symptoms Musculoskeletal: Reports: pain, swelling Allergies: Coded Allergies: No Known Allergies (Unverified , 04/03/17) Objective Vital Signs Last 24 Hour Vital Signs Date Time Temp Pulse Resp B/P (MAP) Pulse Ox O2 Delivery O2 Flow Rate FiO2 04/06/17 13:49 89 20 94 Room Air 04/06/17 13:30 85 16 96 Room Air 04/06/17 12:00 98.2 87 17 115/61 96 Room Air 04/06/17 08:26 77 128/59 04/06/17 08:25 128/59 04/06/17 08:00 98.2 78 16 123/54 97 Room Air 04/06/17 07:49 75 16 96 Room Air 04/06/17 07:48 77 16 96 Room Air 04/06/17 03:36 97.7 83 20 126/55 95 Room Air 04/06/17 01:37 86 16 96 Room Air 04/06/17 01:36 87 16 96 Room Air 04/06/17 00:00 98.1 87 18 121/71 95 Room Air 04/05/17 20:00 97.3 96 18 136/63 97 Room Air 04/05/17 19:37 90 18 96 Room Air 04/05/17 19:35 90 18 96 Room Air Height (Feet): 5 Height (Inches): 3.00 Weight (Pounds): 120 General Appearance: WD/WN, no acute distress HEENT: normocephalic, atraumatic, anicteric, mucous membranes moist Respiratory/Chest: chest wall non-tender, lungs clear, normal breath sounds, no respiratory distress, no accessory muscle use Cardiovascular: normal peripheral pulses, normal rate, regular rhythm, no gallop/murmur Abdomen: normal bowel sounds, soft, non tender, no organomegaly, non distended , no mass Extremities: no cyanosis, no clubbing Skin: no rash, no lesions, no ulcers Neurologic/Psychiatric: alert, oriented x 3 Lymphatic: no neck adenopathy, no groin adenopathy Laboratory Tests Test 04/06/17 14:20 Vancomycin Level Trough 7.5 ug/mL (5.0-12.0) Current Medications Medications (Trade) Dose Ordered Sig/Lora Route PRN Reason Start Time Stop Time Status Last Admin Dose Admin Acetaminophen (Tylenol) 650 mg Q4H PRN ORAL Mild Pain/Temp > 100.5 04/03/17 14:30 05/03/17 14:29 04/06/17 10:47 Albuterol Sulfate (Proventil MDI) 1 puff Q6HRT INH 04/03/17 16:00 05/03/17 15:59 04/06/17 13:00 Albuterol Sulfate (Proventil) 2.5 mg Q4H PRN HHN Shortness of Breath 04/03/17 16:00 04/08/17 15:59 Amlodipine Besylate (Norvasc) 10 mg DAILY ORAL 04/04/17 09:00 05/04/17 08:59 04/06/17 08:26 Cefepime HCl 1 gm/ Dextrose 55 ml @ 110 mls/hr EVERY 12 HOURS IVPB 04/04/17 19:00 04/11/17 18:59 04/06/17 08:25 Dextrose (Dextrose 50%) STAT PRN IV Hypoglycemia 04/03/17 14:30 05/03/17 14:29 Insulin Aspart (NovoLOG) BEFORE MEALS AND HS SUBQ 04/03/17 16:30 05/03/17 16:29 Losartan Potassium (Cozaar) 25 mg DAILY ORAL 04/04/17 09:00 05/04/17 08:59 04/06/17 08:25 Metformin HCl (Glucophage) 500 mg TWICE A DAY ORAL 04/03/17 18:00 05/03/17 17:59 04/06/17 18:03 Montelukast Sodium (Singulair) 10 mg QPM ORAL 04/03/17 16:30 05/03/17 16:29 04/06/17 18:03 Pantoprazole (Protonix) 40 mg ACBREAKFAST ORAL 04/05/17 06:30 05/04/17 08:59 04/06/17 06:36 Vancomycin HCl (Vanco rx to dose) 1 ea DAILY PRN MISC Per rx protocol 04/03/17 14:15 05/03/17 14:14 Vancomycin HCl 1 gm/Dextrose 275 ml @ 183.708 mls/hr Q24H IVPB 04/07/17 10:00 04/12/17 09:59 Jacey Child M.D. Apr 06, 2017 18:35
[2017-04-06 20:00] VITALS: BP 121/56
--- NOTE | 2017-04-06 20:21 | General Progress Note ---
Assessment/Plan Assessment/Plan ASSESSMENT AND PLAN: 1. Deep venous thrombosis history. Duplex of the lower extremity ordered and revealed chronic recanalized thrombus. She does not require anticoagulation. 2. Right lower extremity cellulitis, on antibiotics as per ID service. R/o sepsis 3. Diabetes mellitus. Tight glucose control between 80 and 120. 4. Anemia, mild at this time. Work up if hgb falls bellow 10. Subjective Constitutional: Reports: no symptoms HEENT: Reports: no symptoms Cardiovascular: Reports: no symptoms Respiratory: Reports: no symptoms Gastrointestinal/Abdominal: Reports: no symptoms Genitourinary: Reports: no symptoms Neurologic/Psychiatric: Reports: no symptoms Endocrine: Reports: no symptoms Hematologic/Lymphatic: Reports: no symptoms Allergies: Coded Allergies: No Known Allergies (Unverified , 04/03/17) Subjective no bleeding, no fevers Objective Last 24 Hour Vital Signs Date Time Temp Pulse Resp B/P (MAP) Pulse Ox O2 Delivery O2 Flow Rate FiO2 04/06/17 20:01 82 20 96 Room Air 04/06/17 19:59 78 18 94 Room Air 04/06/17 13:49 89 20 94 Room Air 04/06/17 13:30 85 16 96 Room Air 04/06/17 12:00 98.2 87 17 115/61 96 Room Air 04/06/17 08:26 77 128/59 04/06/17 08:25 128/59 04/06/17 08:00 98.2 78 16 123/54 97 Room Air 04/06/17 07:49 75 16 96 Room Air 04/06/17 07:48 77 16 96 Room Air 04/06/17 03:36 97.7 83 20 126/55 95 Room Air 04/06/17 01:37 86 16 96 Room Air 04/06/17 01:36 87 16 96 Room Air 04/06/17 00:00 98.1 87 18 121/71 95 Room Air Intake and Output 04/06/17 04/07/17 19:00 07:00 Intake Total 305 ml 240 ml Balance 305 ml 240 ml Intake Oral 240 ml IV Total 305 ml # Voids 2 Laboratory Tests 04/06/17 14:20: Vancomycin Level Trough 7.5 Height (Feet): 5 Height (Inches): 3.00 Weight (Pounds): 120 General Appearance: no apparent distress EENT: normal ENT inspection Neck: normal alignment Cardiovascular: no gallop/murmur Extremities: non-tender Skin: normal pigmentation, warm/dry Rigo Jeffries Apr 06, 2017 20:21
[2017-04-07] MEDS: Albuterol 90mcg Inhaler 8gm INH SCH ×4 (00:41→19:13)
[2017-04-07] MEDS: NovoLOG Insulin Flexpen SUBQ SCH ×4 (06:15→20:43)
[2017-04-07 08:03] VITALS: BP 134/55
[2017-04-07 08:29] VITALS: BP 128/61
[2017-04-07] MEDS: metFORMIN 500mg tab ORAL SCH ×2 (08:36→17:11)
[2017-04-07] MEDS: Losartan 25mg tab ORAL SCH (08:38)
[2017-04-07] MEDS: Cefepime HCl 1 GM in D5W 55 ML IVPB SCH ×2 (08:39→20:53)
--- NOTE | 2017-04-07 09:00 | General Progress Note ---
Assessment/Plan Problem List: (1) Cellulitis ICD Codes: L03.90 - Cellulitis, unspecified SNOMED: 254669420 Qualifiers: Qualified Codes: L03.115 - Cellulitis of right lower limb (2) Diabetes mellitus ICD Codes: E11.9 - Type 2 diabetes mellitus without complications SNOMED: 07238233 (3) Achilles tendinitis ICD Codes: M76.60 - Achilles tendinitis, unspecified leg SNOMED: 78112490 Status: progressing Assessment/Plan cellulitis of le improving leg pain improving afebrile abx per id Subjective ROS Limited/Unobtainable: Yes Allergies: Coded Allergies: No Known Allergies (Unverified , 04/03/17) Objective Last 24 Hour Vital Signs Date Time Temp Pulse Resp B/P (MAP) Pulse Ox O2 Delivery O2 Flow Rate FiO2 04/07/17 08:38 128/61 04/07/17 08:29 97.9 75 20 128/61 99 Room Air 04/07/17 08:13 82 16 95 Room Air 04/07/17 08:09 82 16 95 Room Air 04/07/17 08:03 99.0 64 21 134/55 99 Room Air 04/07/17 00:43 96 20 95 Room Air 04/07/17 00:42 96 18 95 Room Air 04/06/17 20:01 82 20 96 Room Air 04/06/17 20:00 96.4 82 18 121/56 96 Room Air 04/06/17 19:59 78 18 94 Room Air 04/06/17 13:49 89 20 94 Room Air 04/06/17 13:30 85 16 96 Room Air 04/06/17 12:00 98.2 87 17 115/61 96 Room Air Intake and Output 04/07/17 04/08/17 19:00 07:00 Intake Total 240 ml Balance 240 ml Intake Oral 240 ml Laboratory Tests 04/06/17 14:20: Vancomycin Level Trough 7.5 Height (Feet): 5 Height (Inches): 3.00 Weight (Pounds): 120 Neck: supple Cardiovascular: normal rate Respiratory/Chest: lungs clear Abdomen: soft Christina Amador MD Apr 07, 2017 09:00
[2017-04-07] MEDS: Vancomycin 1gm/D5W 275ml IVPB SCH ×2 (09:52)
--- NOTE | 2017-04-07 11:32 | Podiatric Progress Note ---
Assessment/Plan Patient Chelsie Martinez is a 81 year old female who was admitted on Apr 03, 2017 at 11:56 with right posterior heel pain Problems: Assessment/Plan ASSESSMENT: - Right posterior heel pain and difficulty with active and passive ankle range of motion. Negative tendinous or ligamentous injury and no fracture reported on MRI. PLAN: - Continue elevation, icing, and non weight bearing - Recommend anti inflammatory medication - Patient to work with physical therapy to improve range of motion and muscle strength Subjective Reason for consult Right posterior heel pain Allergies: Coded Allergies: No Known Allergies (Unverified , 04/03/17) Subjective Patient states some improvement with icing and elevation. However, she continues to have pain with range of motion Objective Exam Last 24 Hour Vital Signs Date Time Temp Pulse Resp B/P (MAP) Pulse Ox O2 Delivery O2 Flow Rate FiO2 04/07/17 09:00 75 128/61 04/07/17 08:38 128/61 04/07/17 08:29 97.9 75 20 128/61 99 Room Air 04/07/17 08:13 82 16 95 Room Air 04/07/17 08:09 82 16 95 Room Air 04/07/17 08:03 99.0 64 21 134/55 99 Room Air 04/07/17 00:43 96 20 95 Room Air 04/07/17 00:42 96 18 95 Room Air 04/06/17 20:01 82 20 96 Room Air 04/06/17 20:00 96.4 82 18 121/56 96 Room Air 04/06/17 19:59 78 18 94 Room Air 04/06/17 13:49 89 20 94 Room Air 04/06/17 13:30 85 16 96 Room Air 04/06/17 12:00 98.2 87 17 115/61 96 Room Air Laboratory Tests Test 04/06/17 14:20 Vancomycin Level Trough 7.5 ug/mL (5.0-12.0) Microbiology Date/Time Source Procedure Growth Status 04/03/17 09:10 Blood Blood Culture - Preliminary NO GROWTH AFTER 4 DAYS Resulted Exam Narrative Patient has difficulty with active and passive dorsiflexion and plantarflexion and is guarding secondary to pain IMAGING: Impression: Evidence of soft tissue inflammation. Nonspecific, could indicate cellulitis versus vasculogenic edema Multiple joint effusions, etiology indeterminate No findings to suggest acute osteomyelitis No evidence of ligamentous or tendinous injury or inflammation Quentin Meyers DPM Apr 07, 2017 11:32
[2017-04-07 13:41] VITALS: BP 106/55
[2017-04-07 16:00] VITALS: BP 107/54
--- NOTE | 2017-04-07 16:29 | Infectious Diseases Prog Note ---
Assessment/Plan Problems: (1) Cellulitis Assessment & Plan: of the right lower extremities , improving on vancomycin, and cefepime , await blood culture to rule out sepsis (2) Diabetes mellitus Assessment & Plan: recommend tight glycemic control to keep blood glucose between 80-120 (3) Achilles tendinitis Assessment & Plan: no evidence of rupture or deep abscess or osteomyelitis, but tendinitis , continue antibiotics, follow spinner hydraulic recommendations Subjective Constitutional: Reports: no symptoms HEENT: Reports: no symptoms Respiratory: Reports: no symptoms Breasts: Reports: no symptoms Cardiovascular: Reports: no symptoms Gastrointestinal/Abdominal: Reports: no symptoms Genitourinary: Reports: no symptoms Neurologic: Reports: no symptoms Psychiatric: Reports: no symptoms Musculoskeletal: Reports: pain Allergies: Coded Allergies: No Known Allergies (Unverified , 04/03/17) Objective Vital Signs Last 24 Hour Vital Signs Date Time Temp Pulse Resp B/P (MAP) Pulse Ox O2 Delivery O2 Flow Rate FiO2 04/07/17 16:00 97.5 76 18 107/54 96 Room Air 04/07/17 13:41 98.1 79 20 106/55 96 Room Air 04/07/17 13:05 90 18 100 Room Air 04/07/17 13:03 89 18 100 Room Air 04/07/17 09:00 75 128/61 04/07/17 08:38 128/61 04/07/17 08:29 97.9 75 20 128/61 99 Room Air 04/07/17 08:13 82 16 95 Room Air 04/07/17 08:09 82 16 95 Room Air 04/07/17 08:03 99.0 64 21 134/55 99 Room Air 04/07/17 00:43 96 20 95 Room Air 04/07/17 00:42 96 18 95 Room Air 04/06/17 20:01 82 20 96 Room Air 04/06/17 20:00 96.4 82 18 121/56 96 Room Air 04/06/17 19:59 78 18 94 Room Air Height (Feet): 5 Height (Inches): 3.00 Weight (Pounds): 120 General Appearance: WD/WN, no acute distress HEENT: normocephalic, atraumatic, anicteric, mucous membranes moist Respiratory/Chest: chest wall non-tender, lungs clear, normal breath sounds, no respiratory distress, no accessory muscle use Cardiovascular: normal peripheral pulses, normal rate, regular rhythm, no gallop/murmur, no JVD Abdomen: normal bowel sounds, soft, non tender, no organomegaly, non distended , no mass, no scars Extremities: no cyanosis, no clubbing, other - achilis tenderness Skin: no rash, no lesions, no ulcers Current Medications Medications (Trade) Dose Ordered Sig/Lora Route PRN Reason Start Time Stop Time Status Last Admin Dose Admin Acetaminophen (Tylenol) 650 mg Q4H PRN ORAL Mild Pain/Temp > 100.5 04/03/17 14:30 05/03/17 14:29 04/07/17 10:03 Albuterol Sulfate (Proventil MDI) 1 puff Q6HRT INH 04/03/17 16:00 05/03/17 15:59 04/07/17 13:03 Albuterol Sulfate (Proventil) 2.5 mg Q4H PRN HHN Shortness of Breath 04/03/17 16:00 04/08/17 15:59 Amlodipine Besylate (Norvasc) 10 mg DAILY ORAL 04/04/17 09:00 05/04/17 08:59 04/07/17 09:00 Cefepime HCl 1 gm/ Dextrose 55 ml @ 110 mls/hr EVERY 12 HOURS IVPB 04/04/17 19:00 04/11/17 18:59 04/07/17 08:39 Dextrose (Dextrose 50%) STAT PRN IV Hypoglycemia 04/03/17 14:30 05/03/17 14:29 Insulin Aspart (NovoLOG) BEFORE MEALS AND HS SUBQ 04/03/17 16:30 05/03/17 16:29 Losartan Potassium (Cozaar) 25 mg DAILY ORAL 04/04/17 09:00 05/04/17 08:59 04/07/17 08:38 Metformin HCl (Glucophage) 500 mg TWICE A DAY ORAL 04/03/17 18:00 05/03/17 17:59 04/07/17 08:36 Montelukast Sodium (Singulair) 10 mg QPM ORAL 04/03/17 16:30 05/03/17 16:29 04/06/17 18:03 Pantoprazole (Protonix) 40 mg ACBREAKFAST ORAL 04/05/17 06:30 05/04/17 08:59 04/07/17 06:13 Vancomycin HCl (Vanco rx to dose) 1 ea DAILY PRN MISC Per rx protocol 04/03/17 14:15 05/03/17 14:14 Vancomycin HCl 1 gm/Dextrose 275 ml @ 183.708 mls/hr Q24H IVPB 04/07/17 10:00 04/12/17 09:59 04/07/17 09:52 Jacey Child M.D. Apr 07, 2017 16:29
[2017-04-07] MEDS: Montelukast 10mg tablet ORAL SCH (17:10)
--- NOTE | 2017-04-07 17:29 | General Progress Note ---
Assessment/Plan Assessment/Plan ASSESSMENT AND PLAN: 1. Deep venous thrombosis history. Duplex of the lower extremity ordered and revealed chronic recanalized thrombus. She does not require anticoagulation. --> continue to monitr 2. Right lower extremity cellulitis, on antibiotics as per ID service. R/o sepsis 3. Diabetes mellitus. Tight glucose control between 80 and 120. 4. Anemia, mild at this time. Work up if hgb falls bellow 10. Subjective ROS Limited/Unobtainable: Yes Allergies: Coded Allergies: No Known Allergies (Unverified , 04/03/17) Subjective no bleeding, no fevers Objective Last 24 Hour Vital Signs Date Time Temp Pulse Resp B/P (MAP) Pulse Ox O2 Delivery O2 Flow Rate FiO2 04/07/17 16:00 97.5 76 18 107/54 96 Room Air 04/07/17 13:41 98.1 79 20 106/55 96 Room Air 04/07/17 13:05 90 18 100 Room Air 04/07/17 13:03 89 18 100 Room Air 04/07/17 09:00 75 128/61 04/07/17 08:38 128/61 04/07/17 08:29 97.9 75 20 128/61 99 Room Air 04/07/17 08:13 82 16 95 Room Air 04/07/17 08:09 82 16 95 Room Air 04/07/17 08:03 99.0 64 21 134/55 99 Room Air 04/07/17 00:43 96 20 95 Room Air 04/07/17 00:42 96 18 95 Room Air 04/06/17 20:01 82 20 96 Room Air 04/06/17 20:00 96.4 82 18 121/56 96 Room Air 04/06/17 19:59 78 18 94 Room Air Intake and Output 04/07/17 04/08/17 19:00 07:00 Intake Total 240 ml Balance 240 ml Intake Oral 240 ml Height (Feet): 5 Height (Inches): 3.00 Weight (Pounds): 120 General Appearance: no apparent distress EENT: normal ENT inspection Neck: normal alignment Cardiovascular: normal rate Neurologic: alert Rigo Jeffries Apr 07, 2017 17:29
[2017-04-07 20:00] VITALS: BP 129/56
[2017-04-08] VITALS: BP 117/57
[2017-04-08] MEDS: Albuterol 90mcg Inhaler 8gm INH SCH ×4 (01:12→20:45)
[2017-04-08 04:00] VITALS: BP 135/66
[2017-04-08] MEDS: NovoLOG Insulin Flexpen SUBQ SCH ×4 (06:30→21:00)
[2017-04-08 08:00] VITALS: BP 124/62
[2017-04-08] MEDS: Cefepime HCl 1 GM in D5W 55 ML IVPB SCH ×2 (08:32→20:25)
[2017-04-08] MEDS: metFORMIN 500mg tab ORAL SCH ×2 (08:32→17:01)
[2017-04-08] MEDS: Losartan 25mg tab ORAL SCH (08:32)
[2017-04-08] MEDS: Vancomycin 1gm/D5W 275ml IVPB SCH ×4 (10:15→10:48)
[2017-04-08 12:00] VITALS: BP 123/54
[2017-04-08] MEDS ORDERED: Tubing IV Secondary IV ONE (15:06)
--- NOTE | 2017-04-08 15:54 | Infectious Diseases Prog Note ---
Assessment/Plan Problems: (1) Cellulitis Assessment & Plan: of the right lower extremities , improving on vancomycin, and cefepime , blood culture is negative (2) Diabetes mellitus Assessment & Plan: recommend tight glycemic control to keep blood glucose between 80-120 (3) Achilles tendinitis Assessment & Plan: no evidence of rupture or deep abscess or osteomyelitis, but tendinitis , continue antibiotics, follow deliverer merchandise recommendations Subjective Constitutional: Reports: no symptoms HEENT: Reports: no symptoms Respiratory: Reports: no symptoms Breasts: Reports: no symptoms Cardiovascular: Reports: no symptoms Gastrointestinal/Abdominal: Reports: no symptoms Genitourinary: Reports: no symptoms Neurologic: Reports: no symptoms Psychiatric: Reports: no symptoms Musculoskeletal: Reports: pain Allergies: Coded Allergies: No Known Allergies (Unverified , 04/03/17) Objective Vital Signs Last 24 Hour Vital Signs Date Time Temp Pulse Resp B/P (MAP) Pulse Ox O2 Delivery O2 Flow Rate FiO2 04/08/17 12:08 97 18 88 Room Air 04/08/17 12:08 86 18 96 Room Air 04/08/17 12:00 97.6 80 18 123/54 100 Room Air 04/08/17 08:32 124/62 04/08/17 08:32 96 124/62 04/08/17 08:00 98.1 20 124/62 95 Room Air 04/08/17 07:30 96 18 97 Room Air 04/08/17 07:30 95 18 94 Room Air 04/08/17 04:00 97.5 78 18 135/66 98 Room Air 04/08/17 01:14 73 18 95 Room Air 04/08/17 01:12 75 18 91 Room Air 04/08/17 00:00 98.6 75 19 117/57 95 Room Air 04/07/17 20:00 98.8 62 20 129/56 95 Room Air 04/07/17 19:16 83 18 98 Room Air 04/07/17 19:13 82 18 96 Room Air 04/07/17 16:00 97.5 76 18 107/54 96 Room Air Height (Feet): 5 Height (Inches): 3.00 Weight (Pounds): 120 General Appearance: WD/WN, no acute distress HEENT: normocephalic, atraumatic, anicteric Respiratory/Chest: chest wall non-tender, lungs clear, normal breath sounds, no respiratory distress Cardiovascular: normal peripheral pulses, normal rate, regular rhythm, no JVD Abdomen: normal bowel sounds, soft, non tender, no organomegaly, non distended , no mass Extremities: no cyanosis, no clubbing Skin: no rash, no lesions, no ulcers Current Medications Medications (Trade) Dose Ordered Sig/Lora Route PRN Reason Start Time Stop Time Status Last Admin Dose Admin Acetaminophen (Tylenol) 650 mg Q4H PRN ORAL Mild Pain/Temp > 100.5 04/03/17 14:30 05/03/17 14:29 04/07/17 21:54 Albuterol Sulfate (Proventil MDI) 1 puff Q6HRT INH 04/03/17 16:00 05/03/17 15:59 04/08/17 12:07 Albuterol Sulfate (Proventil) 2.5 mg Q4H PRN HHN Shortness of Breath 04/03/17 16:00 04/08/17 15:59 Amlodipine Besylate (Norvasc) 10 mg DAILY ORAL 04/04/17 09:00 05/04/17 08:59 04/08/17 08:32 Cefepime HCl 1 gm/ Dextrose 55 ml @ 110 mls/hr EVERY 12 HOURS IVPB 04/04/17 19:00 04/11/17 18:59 04/08/17 08:32 Dextrose (Dextrose 50%) STAT PRN IV Hypoglycemia 04/03/17 14:30 05/03/17 14:29 Insulin Aspart (NovoLOG) BEFORE MEALS AND HS SUBQ 04/03/17 16:30 05/03/17 16:29 Losartan Potassium (Cozaar) 25 mg DAILY ORAL 04/04/17 09:00 05/04/17 08:59 04/08/17 08:32 Metformin HCl (Glucophage) 500 mg TWICE A DAY ORAL 04/03/17 18:00 05/03/17 17:59 04/08/17 08:32 Montelukast Sodium (Singulair) 10 mg QPM ORAL 04/03/17 16:30 05/03/17 16:29 04/07/17 17:10 Pantoprazole (Protonix) 40 mg ACBREAKFAST ORAL 04/05/17 06:30 05/04/17 08:59 04/08/17 05:56 Vancomycin HCl (Vanco rx to dose) 1 ea DAILY PRN MISC Per rx protocol 04/03/17 14:15 05/03/17 14:14 Vancomycin HCl 1 gm/Dextrose 275 ml @ 183.708 mls/hr Q24H IVPB 04/07/17 10:00 04/12/17 09:59 04/08/17 10:48 Jacey Child M.D. Apr 08, 2017 15:54
[2017-04-08 15:59] VITALS: BP 111/54
[2017-04-08] MEDS: Montelukast 10mg tablet ORAL SCH (17:01)
[2017-04-08 20:00] VITALS: BP 124/56
--- NOTE | 2017-04-08 20:14 | General Progress Note ---
Assessment/Plan Assessment/Plan ASSESSMENT AND PLAN: 1. Deep venous thrombosis history. Duplex of the lower extremity ordered and revealed chronic recanalized thrombus. She does not require anticoagulation. --> continue to monitor 2. Right lower extremity cellulitis, on antibiotics as per ID service. R/o sepsis 3. Diabetes mellitus. Tight glucose control between 80 and 120. 4. Anemia, mild at this time. Work up if hgb falls bellow 10. --> patient has not had cbc in 5+ days , follow up in am Subjective Constitutional: Reports: no symptoms HEENT: Reports: no symptoms Cardiovascular: Reports: no symptoms Respiratory: Reports: no symptoms Gastrointestinal/Abdominal: Reports: no symptoms Genitourinary: Reports: no symptoms Neurologic/Psychiatric: Reports: no symptoms Endocrine: Reports: no symptoms Hematologic/Lymphatic: Reports: no symptoms Allergies: Coded Allergies: No Known Allergies (Unverified , 04/03/17) Subjective NAD Objective Last 24 Hour Vital Signs Date Time Temp Pulse Resp B/P (MAP) Pulse Ox O2 Delivery O2 Flow Rate FiO2 04/08/17 15:59 97.8 18 111/54 99 Room Air 04/08/17 12:08 97 18 88 Room Air 04/08/17 12:08 86 18 96 Room Air 04/08/17 12:00 97.6 80 18 123/54 100 Room Air 04/08/17 08:32 124/62 04/08/17 08:32 96 124/62 04/08/17 08:00 98.1 20 124/62 95 Room Air 04/08/17 07:30 96 18 97 Room Air 04/08/17 07:30 95 18 94 Room Air 04/08/17 04:00 97.5 78 18 135/66 98 Room Air 04/08/17 01:14 73 18 95 Room Air 04/08/17 01:12 75 18 91 Room Air 04/08/17 00:00 98.6 75 19 117/57 95 Room Air Intake and Output 04/08/17 04/09/17 19:00 07:00 Intake Total 630.562 ml Balance 630.562 ml Intake Oral 300 ml IV Total 330.562 ml # Voids 3 # Bowel Movements 2 Height (Feet): 5 Height (Inches): 3.00 Weight (Pounds): 120 General Appearance: no apparent distress EENT: normal ENT inspection Neck: normal alignment Cardiovascular: normal peripheral pulses, normal rate Respiratory/Chest: chest wall non-tender, no accessory muscle use Abdomen: normal bowel sounds 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
--- NOTE | 2017-04-08 20:34 | General Progress Note ---
Assessment/Plan Problem List: (1) Cellulitis ICD Codes: L03.90 - Cellulitis, unspecified SNOMED: 411675570 Qualifiers: Qualified Codes: L03.115 - Cellulitis of right lower limb (2) Diabetes mellitus ICD Codes: E11.9 - Type 2 diabetes mellitus without complications SNOMED: 35669331 (3) Achilles tendinitis ICD Codes: M76.60 - Achilles tendinitis, unspecified leg SNOMED: 18756385 Status: progressing Assessment/Plan cellulitis of le improving dc in am AFEBRILE Subjective ROS Limited/Unobtainable: Yes Allergies: Coded Allergies: No Known Allergies (Unverified , 04/03/17) Objective Last 24 Hour Vital Signs Date Time Temp Pulse Resp B/P (MAP) Pulse Ox O2 Delivery O2 Flow Rate FiO2 04/08/17 20:12 94 16 97 Room Air 21 04/08/17 20:12 94 16 98 Room Air 21 04/08/17 15:59 97.8 18 111/54 99 Room Air 04/08/17 12:08 97 18 88 Room Air 04/08/17 12:08 86 18 96 Room Air 04/08/17 12:00 97.6 80 18 123/54 100 Room Air 04/08/17 08:32 124/62 04/08/17 08:32 96 124/62 04/08/17 08:00 98.1 20 124/62 95 Room Air 04/08/17 07:30 96 18 97 Room Air 04/08/17 07:30 95 18 94 Room Air 04/08/17 04:00 97.5 78 18 135/66 98 Room Air 04/08/17 01:14 73 18 95 Room Air 04/08/17 01:12 75 18 91 Room Air 04/08/17 00:00 98.6 75 19 117/57 95 Room Air Intake and Output 04/08/17 04/09/17 19:00 07:00 Intake Total 630.562 ml Balance 630.562 ml Intake Oral 300 ml IV Total 330.562 ml # Voids 3 # Bowel Movements 2 Height (Feet): 5 Height (Inches): 3.00 Weight (Pounds): 120 Abdomen: no organomegaly Christina Amador MD Apr 08, 2017 20:34
[2017-04-09] VITALS: BP 121/57
[2017-04-09] MEDS: Albuterol 90mcg Inhaler 8gm INH SCH ×3 (01:00→13:44)
[2017-04-09 04:00] VITALS: BP 123/56
[2017-04-09] MEDS: NovoLOG Insulin Flexpen SUBQ SCH ×3 (06:30→16:30)
[2017-04-09 08:00] VITALS: BP 117/49
[2017-04-09] MEDS: Losartan 25mg tab ORAL SCH (08:48)
[2017-04-09] MEDS: Cefepime HCl 1 GM in D5W 55 ML IVPB SCH (08:48)
[2017-04-09] MEDS: metFORMIN 500mg tab ORAL SCH (08:48)
[2017-04-09] MEDS: Vancomycin 1gm/D5W 275ml IVPB SCH ×2 (10:17)
[2017-04-09 12:00] VITALS: BP 130/56
[2017-04-09 16:00] VITALS: BP_SYST 111; BP_SYST 123; BP_DIAS 49; BP_DIAS 56
--- NOTE | 2017-04-09 17:21 | Podiatric Progress Note ---
Assessment/Plan Patient Chelise Martinez is a 81 year old female who was admitted on Apr 03, 2017 at 11:56 with right achilles pain Problems: Assessment/Plan ASSESSMENT: - Likely right achilles tendonitis without tear or rupture. Pain, range or motion, and muscle strength is improving PLAN: - Continue to use walker for assistance with ambulation - Use anti inflammatory medication as needed - Continue therapy to improve range of motion and strength - Will follow as an outpatient. Will consider ordering physical therapy if no improvement Subjective Reason for consult Right ankle pain with range of motion Allergies: Coded Allergies: No Known Allergies (Unverified , 04/03/17) Subjective Patient states pain has improved but still present Objective Exam Last 24 Hour Vital Signs Date Time Temp Pulse Resp B/P (MAP) Pulse Ox O2 Delivery O2 Flow Rate FiO2 04/09/17 16:00 97.9 72 19 123/49 94 Room Air 04/09/17 14:01 Room Air 04/09/17 14:00 Room Air 04/09/17 12:00 98.2 78 18 130/56 95 Room Air 04/09/17 08:48 123/56 04/09/17 08:48 76 123/56 04/09/17 08:00 97.9 72 19 117/49 94 Room Air 04/09/17 07:51 85 16 95 Room Air 21 04/09/17 07:50 85 16 95 Room Air 21 04/09/17 04:00 97.6 76 19 123/56 97 Room Air 04/09/17 01:23 Room Air 04/09/17 01:22 87 16 97 Room Air 21 04/09/17 00:00 97.8 77 19 121/57 96 Room Air 04/08/17 20:12 94 16 97 Room Air 21 04/08/17 20:12 94 16 98 Room Air 21 04/08/17 20:00 97.6 80 19 124/56 97 Room Air Microbiology Date/Time Source Procedure Growth Status 04/03/17 09:10 Blood Blood Culture - Final NO GROWTH AFTER 5 DAYS Complete Exam Narrative Right ankle range of motion and pain has improved. She continues to use the walker for assistance with ambulation Quentin Meyers DPM Apr 09, 2017 17:21
[2017-04-09] MEDS ORDERED: Tubing IV Secondary IV ONE (17:38)
--- NOTE | 2017-04-10 11:06 | Discharge Summary ---
Discharge Summary Hospital Course Date of Admission Apr 03, 2017 at 11:56 Date of Discharge Apr 09, 2017 at 17:39 Admitting Diagnosis CELLULITIES RIGHT LEG HPI Chelsie Martinez is a 81 year old female who was admitted on Apr 03, 2017 at 11:56 for Cellulitis Right Leg Hospital Course dc summary #[id number] Discharge Medications New Medications: Cephalexin* (Keflex*) 500 Mg Capsule 500 MG ORAL EVERY 12 HOURS, #14 CAP 0 Refills Doxycycline Hyclate (Doxycycline Hyclate) 100 Mg Capsule 100 MG PO BID, #14 CAP Discharge Condition Upon Discharge: stable Discharge Disposition Patient was discharged to Home (01) Discharge Diagnoses: Discharge Instructions Discharge Instructions Special Instructions I have been assigned to complete a D/C Summary on this account. I was not involved in the patient management Karen العراقي NP (Vanchtein) Apr 10, 2017 11:05
[2017-04-10] MEDS ORDERED: CEPHALEXIN500 MG ORAL (11:21)
[2017-04-10] MEDS ORDERED: DOXYCYCLINE HY100 M2 PO (11:21)
--- NOTE | 2017-04-11 03:45 | Discharge Summary 2 SIG ---
DATE OF ADMISSION: 04/03/2017 DATE OF DISCHARGE: 04/09/2017 Reason For Admission: 81-year-old female with past medical history significant for hypertension, chronic obstructive pulmonary disease, and diabetes, presented with the right lower extremity and ankle burning pain for five days. It became more severe in the last two days. The patient rated the pain 5/10 on a scale 1 to 10 when she was standing and walking. She denied fever and chills. She reported redness. The patient denied nausea, vomiting, diarrhea, dysuria, or change in bowel movement. Workup in the emergency room revealed elevated ESR, stable WBC and lactic acid. Urinalysis was negative. The patient was diagnosed with cellulitis of right lower extremity. Initial intravenous antibiotics were provided in the emergency department. Patient was admitted for inpatient management of cellulitis with IV antibiotics. ADMITTING DIAGNOSES: 1. Cellulitis of right lower extremity. 2. Diabetes mellitus. Hospital Stay: The patient was admitted. ID consult was requested. The patient was started on empiric antibiotics. Blood cultures were negative. Per Infectious Disease specialist, the patient was discharged home on oral antibiotics. Podiatry consult was requested due to the right ankle pain. Smoking Tobacco Cutter Operator seen and evaluated the patient and ordered MRI of the ankle to rule out possible tear or rupture of Achilles tendon. MRI of ankle revealed no findings to suggest acute osteomyelitis. No evidence of ligamentous or tendon injury or inflammation. Multiple joint effusion, etiology undetermined. Evidence of soft tissue inflammation, nonspecific, which could indicate cellulitis versus vasculogenic edema. The patient initially was nonweightbearing. Pain management was addressed and controlled. As patient condition improved with antibiotics and pain control , she started to ambulate with walker. Range of motion improved. Nonsteroidal anti-inflammatory medication were used for pain management. Blood sugar was managed with sliding scale of insulin. Hematology consult was requested since the patient had a history of DVT. 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 No acute DVT in bilateral lower lower extremities. The patient was stable for discharge home. Follow up with the primary medical doctor. FINAL DIAGNOSES: 1. Cellulitis of right lower extremity. 2. Likely right Achilles tendinitis without rupture or tear. 3. Right ankle pain secondary to right Achilles tendinitis. 4. Diabetes mellitus. 5. History of deep venous thrombosis, left lower extremity. DISCHARGE MEDICATIONS: List of medication provided to the patient. Discharge Instruction: The patient was discharged home. Follow up with the primary medical doctor. Christina Amador M.D. I have been assigned to dictate discharge summary on this account and I was not involved in the patient's management. Karen العراقي (Vanchtein) NAnju DR: MIL JOB#: [id number] CC: MIKE
== END 2017-04-09 17:39 | disposition home or self-care (01) | DRG 603 ==
LOC: EDBD 08:41 → EMR 09:02 → 4E 11:56 → EDBEDREQ 12:29 → 4E 13:41
DX: L03.115 Cellulitis of right lower limb (principal); J44.9 Chronic obstructive pulmonary disease, unspecified; E11.9 Type 2 diabetes mellitus without complications; I10 Essential (primary) hypertension; D64.9 Anemia, unspecified; K21.9 Gastro-esophageal reflux disease without esophagitis; M76.61 Achilles tendinitis, right leg; Z86.718 Personal history of other venous thrombosis and embolism
CPT/HCPCS: 36415; 71010; 80053; 80202; 81003; 82550; 82962; 83605; 83880; 84484; 85025; 85610; 85651; 85730; 87040; 90471; 90715; 93005; 93970; 94640; 99285; J1815

== ENCOUNTER 2019-03-27 10:31 | Inpatient (IN) | payer MEDICARE, MEDICAID ==
[~2019-03-27] VITALS: Ht 134.6 cm; Wt 49.9 kg
[~2019-03-27 10:31] MED LIST: ALBUTEROL2.5 MG/3 M INH; CEPHALEXIN500 MG ORAL; DOXYCYCLINE HY100 M2 PO; LOSARTAN POTASS25 M1 PO; METFORMIN HCL500 M1 ORAL; MONTELUKAST SOD10 MG ORAL; NORVASC10 MG ORAL; OMEPRAZOLE10 M1 ORAL; PROAIR HFA8.5 GM INH; PROTONIX40 MG ORAL; SIMVASTATIN20 MG ORAL
[2019-03-27] MEDS ORDERED: ASPIRIN-LOW81 MG ORAL (10:44)
[2019-03-27] MEDS ORDERED: PRAVASTATIN SOD20 M1 ORAL (10:44)
[2019-03-27] MEDS ORDERED: FAMOTIDINE20 MG ORAL (10:44)
[2019-03-27] MEDS ORDERED: NAMENDA5 MG ORAL (10:44)
[2019-03-27] MEDS ORDERED: Omnipaque-300 100ml vial INJ PRN (10:45)
[2019-03-27] MEDS ORDERED: Lidocaine 2% Visc 15ml soln ORAL ONE (10:45)
--- NOTE | 2019-03-27 10:55 | NUR ---
ED Nurse Note: Brought in by son due to feeling weak and not eating well x 4 days; Reports no N/V or abdominal pain. Patient awake, alert, oriented x 4. Able to follow commands. Regular, unlabored breathing noted. Reports no recent illness. Patient has been taking her medications. BM today, reports no diarrhea. Ambulated to the room with steady gait. Placed patient on vehicle monitor technician, no ectopy noted. Bed in lowest position.
[2019-03-27 10:57] VITALS: BP 134/77
[2019-03-27 11:18] LABS: HEMATOCRIT 30.9 % (37.0-47.0); MEAN CORPUSCULAR VOLUME 87 FL (80-99); PLATELET COUNT 499 K/UL (150-450); RED BLOOD COUNT 3.55 M/UL (4.20-5.40); RED CELL DISTRIBUTION WIDTH 12.5 % (11.6-14.8); WHITE BLOOD COUNT 11.8 K/UL (4.8-10.8)
[2019-03-27 11:27] LABS: APPEARANCE,URINE CLEAR; BILIRUBIN, URINE 2+ (NEGATIVE); GLUCOSE, URINE (UA) NEGATIVE (NEGATIVE); KETONES,URINE 1+ (NEGATIVE); LEUKOCYTE ESTERASE ,URINE 1+ (NEGATIVE); NITRITE,URINE NEGATIVE (NEGATIVE); PH,URINE 5 (4.5-8.0); PROTEIN,URINE 2+ (NEGATIVE); UROBILINOGEN,URINE 4 MG/DL (0.0-1.0)
--- NOTE | 2019-03-27 11:29 | NUR ---
ED Nurse Note: Son at bedside. RN and Dr. Chao attempted to commuicate patient with tunnel elastic operator zigzag service, # [id number], Cassidy, but patient unable to understand interpretor. Patient preferred to speak to ERMD via son.
[2019-03-27 11:30] LABS: INR 0.9 (0.9-1.1)
[2019-03-27 11:34] LABS: COLOR,URINE YELLOW
[2019-03-27 11:39] LABS: ANION GAP 12 mmol/L (5-15); BLOOD UREA NITROGEN 19 mg/dL (7-18); CALCIUM 9.4 MG/DL (8.5-10.1); CARBON DIOXIDE 27 MMOL/L (21-32); CHLORIDE 98 MMOL/L (98-107); POTASSIUM 4.1 MMOL/L (3.5-5.1); SODIUM 136 MMOL/L (136-145)
--- NOTE | 2019-03-27 11:52 | NUR ---
ED Nurse Note: US abdomen by the bedside.
[2019-03-27 11:57] LABS: ALANINE AMINOTRANSFERASE 592 U/L (12-78); ALBUMIN 3.3 G/DL (3.4-5.0); ALBUMIN/GLOBULIN RATIO 0.7 (1.0-2.7); ALKALINE PHOSPHATASE 352 U/L (46-116); ASPARTATE AMINO TRANSFERASE 612 U/L (15-37); BILIRUBIN,TOTAL 0.9 MG/DL (0.2-1.0); CKMB 1.4 NG/ML (0.0-3.6); CREATINE KINASE 71 U/L (26-308)
--- NOTE | 2019-03-27 12:10 | NUR ---
ED Nurse Note: Assumed care of patient. Patient in bed and gettng u/s exam. No facial grimacing or guariding noted.
--- NOTE | 2019-03-27 12:11 | Diagnostic Imaging Report ---
Indication: Chest pain Comparison: 04/03/2017 A single view chest radiograph was obtained. Findings: No definite infiltrate or pulmonary vascular congestion identified. The heart is mildly enlarged. The aorta is mildly enlarged consistent with atherosclerotic vascular disease. The bones are osteopenic. Impression: No acute disease
--- NOTE | 2019-03-27 12:59 | Diagnostic Imaging Report ---
Indication: Abdominal pain Technique: Grayscale and duplex Doppler imaging of the abdomen performed. Comparison: None Findings: Multiple gallstones are demonstrated. Sonographic Florez's is negative per technologist. The liver is unremarkable. Doppler interrogation of the main portal vein shows patency with hepatopedal, monophasic flow. There is no biliary ductal dilatation identified. The demonstrated part of the pancreas, aorta and IVC show no definite abnormalities. Both kidneys appear unremarkable. There is no hydronephrosis. IMPRESSION: Cholelithiasis
--- NOTE | 2019-03-27 13:25 | NUR ---
ED Nurse Note: Patient returned from CT scan. Placed patient back on early breastfeeding care specialist. Son @ bedside.
[2019-03-27 13:26] VITALS: BP 127/40
--- NOTE | 2019-03-27 13:27 | NUR ---
ED Nurse Note: Patient ambulated to the room with steady gait @ [address] in wheelchair.
[2019-03-27] MEDS ORDERED: Miralax 17gm pkt ORAL PRN (13:30)
[2019-03-27] MEDS ORDERED: LORazepam Inj 2mg/ml 1ml IV PRN (13:30)
[2019-03-27] MEDS ORDERED: Morphine Sulfate 2mg/ml Inj(IV/IM USE ONLY) IVP PRN (13:30)
[2019-03-27] MEDS ORDERED: Zolpidem 5mg tab ORAL PRN (13:30)
--- NOTE | 2019-03-27 14:07 | Diagnostic Imaging Report ---
Indication: Abdominal pain Technique: Continuous helical transaxial imaging of the abdomen and pelvis was obtained from the lung bases to the pubic symphysis during intravenous contrast administration. Coronal 2-D reformats were also obtained. Study obtained in a Siemens sensation [address] Automatic Exposure Control was utilized. Total Dose length Product (DLP): 450.[address] Dose Index Volume (CTDIvol): 11.59 mGy Comparison: None Findings: The gallbladder is severely distended with wall thickening secondary to very large stones within the lumen. For example one of the stones measures about 6 x 3 cm. There is another stone and measures 2.7 cm. Cholecystitis is suspected. Biliary ducts are mildly prominent. The sigmoid colon appears abnormal. There are diverticula with ill-definition of the wall and slight thickening of the wall. Diverticulitis is not excluded and should be considered as well. There is an umbilical hernia containing fat. Bowel gas pattern is nonobstructive appendix is probably seen partially and unremarkable as such. The aorta and iliac arteries are tortuous moderately calcified. Bladder is nondistended. There is no ascites. There is no hydronephrosis, adrenal mass or splenomegaly. Pancreas is unremarkable. There is a hiatal hernia. Minimal streaky atelectasis versus scarring at the lung bases noted. There is narrowing of intervertebral discs and accompanying endplate osteophyte formation. Hypertrophied facet joints also demonstrated. Uterus is not seen. IMPRESSION: Severe distention of the gallbladder, wall thickening, secondary to a large intraluminal gallstones. Cholecystitis is suspected. Correlate clinically. Suspected diverticulitis in the sigmoid region with wall thickening and mild perisigmoid inflammation with multiple diverticula in the sigmoid colon and elsewhere in the colon. No abscess. Umbilical hernia containing fat Apparent hysterectomy Atherosclerotic vascular disease Degenerative changes of the spine The CT scanner at [facility] is accredited by the [employer] and the scans are performed using dose optimization techniques as appropriate to a performed exam including Automatic Exposure control.
[2019-03-27 14:30] VITALS: BP 123/49
--- NOTE | 2019-03-27 14:53 | Emergency Room Report ---
History of Present Illness General Chief Complaint: Generalized Weakness Source: Patient Present Illness HPI This patient is accompanied by her son. For the past 4 days that she has had no appetite and has had generalized weakness. She also has had intermittent upper abdominal pain. She has no pain right now. She denies fever or chills. She denies nausea or vomiting. She denies chest pain or shortness of breath. She denies dysuria or hematuria. She has no other complaints. Allergies: Coded Allergies: No Known Allergies (Unverified , 04/03/17) Patient History Past Medical History: see triage record, DM, HTN, asthma Social History: Denies: smoking, alcohol use, drug use Now: No Reviewed Nursing Documentation: PMH: Agreed; PSxH: Agreed Nursing Documentation-PMH Past Medical History: No History, Except For Hx Hypertension: Yes Hx Asthma: Yes Hx Diabetes: Yes Review of Systems All Other Systems: negative except mentioned in HPI Physical Exam Vital Signs Date Time Temp Pulse Resp B/P (MAP) Pulse Ox O2 Delivery O2 Flow Rate FiO2 03/27/19 10:34 99.0 83 17 154/76 (102) 98 Room Air Sp02 EP Interpretation: reviewed, normal General Appearance: no apparent distress, alert, GCS 15, non-toxic Head: normocephalic, atraumatic Eyes: bilateral eye normal inspection, bilateral eye PERRL ENT: hearing grossly normal, normal pharynx, no angioedema, normal voice Neck: full range of motion, supple/symm/no masses Respiratory: chest non-tender, lungs clear, normal breath sounds, no respiratory distress, no retraction, no accessory muscle use, speaking full sentences Cardiovascular #1: regular rate, rhythm, no edema Gastrointestinal: normal bowel sounds, non tender, soft, non-distended, no guarding, no rebound Rectal: deferred Musculoskeletal: back normal, normal range of motion, non-tender Neurologic: alert, oriented x3, responsive, motor strength/tone normal, sensory intact, speech normal Psychiatric: judgement/insight normal, memory normal, mood/affect normal, no suicidal/homicidal ideation Skin: no rash, normal color Medical Decision Making Diagnostic Impression: Primary Impression: Hepatitis Additional Impressions: Failure to thrive in adult Generalized weakness Cholecystitis Cholelithiases Diverticulitis ER Course This patient is found to have possible cholecystitis. CT of the abdomen pelvis showed a very enlarged gallbladder with gallstones and a thickened gallbladder wall. Also, there was findings on CT that showed evidence of diverticulitis. However, an ultrasound of the gallbladder only showed the gallstones. Patient also has a transaminitis. This could be related to the cholecystitis. Lipase is not elevated. General surgery was consulted and this patient is admitted for further monitoring and further evaluation and treatment and possible cholecystectomy and evaluation by gastroenterology. Laboratory Tests Test 03/27/19 11:00 White Blood Count 11.8 K/UL (4.8-10.8) H Red Blood Count 3.55 M/UL (4.20-5.40) L Hemoglobin 10.0 G/DL (12.0-16.0) L Hematocrit 30.9 % (37.0-47.0) L Mean Corpuscular Volume 87 FL (80-99) Mean Corpuscular Hemoglobin 28.0 PG (27.0-31.0) Mean Corpuscular Hemoglobin Concent 32.2 G/DL (32.0-36.0) Red Cell Distribution Width 12.5 % (11.6-14.8) Platelet Count 499 K/UL (150-450) H Mean Platelet Volume 4.5 FL (6.5-10.1) L Neutrophils (%) (Auto) % (45.0-75.0) Lymphocytes (%) (Auto) % (20.0-45.0) Monocytes (%) (Auto) % (1.0-10.0) Eosinophils (%) (Auto) % (0.0-3.0) Basophils (%) (Auto) % (0.0-2.0) Differential Total Cells Counted 100 Neutrophils % (Manual) 88 % (45-75) H Lymphocytes % (Manual) 6 % (20-45) L Monocytes % (Manual) 6 % (1-10) Eosinophils % (Manual) 0 % (0-3) Basophils % (Manual) 0 % (0-2) Band Neutrophils 0 % (0-8) Platelet Estimate Adequate Platelet Morphology Normal Hypochromasia 1+ Prothrombin Time 10.0 SEC (9.30-11.50) Prothrombin Time INR 0.9 (0.9-1.1) PTT 27 SEC (23-33) Urine Color Yellow Urine Appearance Clear Urine pH 5 (4.5-8.0) Urine Specific [place] 1.020 (1.005-1.035) Urine Protein 2+ (NEGATIVE) H Urine Glucose (UA) Negative (NEGATIVE) Urine Ketones 1+ (NEGATIVE) H Urine Blood Negative (NEGATIVE) Urine Nitrite Negative (NEGATIVE) Urine Bilirubin 2+ (NEGATIVE) H Urine Ictotest Positive (NEGATIVE) Urine Urobilinogen 4 MG/DL (0.0-1.0) H Urine Leukocyte Esterase 1+ (NEGATIVE) H Urine RBC 0-2 /HPF (0 - 2) Urine WBC 2-4 /HPF (0 - 2) Urine Squamous Epithelial Cells Few /LPF (NONE/OCC) Urine Bacteria Few /HPF (NONE) Urine Hyaline Casts 0-2 /LPF (NONE) H Sodium Level 136 MMOL/L (136-145) Potassium Level 4.1 MMOL/L (3.5-5.1) Chloride Level 98 MMOL/L (98-107) Carbon Dioxide Level 27 MMOL/L (21-32) Anion Gap 12 mmol/L (5-15) Blood Urea Nitrogen 19 mg/dL (7-18) H Creatinine 1.0 MG/DL (0.55-1.30) Estimate Glomerular Filtration Rate mL/min (>60) Glucose Level 133 MG/DL (74-106) H Lactic Acid Level 1.50 mmol/L (0.4-2.0) Calcium Level 9.4 MG/DL (8.5-10.1) Total Bilirubin 0.9 MG/DL (0.2-1.0) Aspartate Amino Transferase (AST) 612 U/L (15-37) H Alanine Aminotransferase (ALT) 592 U/L (12-78) H Alkaline Phosphatase 352 U/L (46-116) H Total Creatine Kinase 71 U/L (26-308) Creatine Kinase MB 1.4 NG/ML (0.0-3.6) Creatine Kinase MB Relative Index 1.9 Troponin I 0.000 ng/mL (0.000-0.056) Total Protein 8.0 G/DL (6.4-8.2) Albumin 3.3 G/DL (3.4-5.0) L Globulin 4.7 g/dL Albumin/Globulin Ratio 0.7 (1.0-2.7) L Lipase 290 U/L (73-393) EKG Diagnostic Results Rate: normal Rhythm: NSR ST Segments: no acute changes Other Impression Qwaves in lead III Rhythm Strip Diag. Results EP Interpretation: yes Rate: 80's Rhythm: NSR, no PVC's, no ectopy Chest X-Ray Diagnostic Results Chest X-Ray Diagnostic Results : Chest X-Ray Ordered: Yes # of Views/Limited/Complete: 1 View Indication: Other EP Interpretation: Yes Interpretation: no consolidation, no effusion, no pneumothorax, no acute cardiopulmonary disease Impression: No acute disease Electronically Signed by: Monica Chao DO CT/MRI/US Diagnostic Results CT/MRI/US Diagnostic Results : Imaging Test Ordered: CT abd/pelvis, US RUQ Impression IMPRESSION: Severe distention of the gallbladder, wall thickening, secondary to a large intraluminal gallstones. Cholecystitis is suspected. Correlate clinically. Suspected diverticulitis in the sigmoid region with wall thickening and mild perisigmoid inflammation with multiple diverticula in the sigmoid colon and elsewhere in the colon. No abscess. Umbilical hernia containing fat Apparent hysterectomy Atherosclerotic vascular disease RUQ US: IMPRESSION: Cholelithiasis Degenerative changes of the spine Last Vital Signs Date Time Temp Pulse Resp B/P (MAP) Pulse Ox O2 Delivery O2 Flow Rate FiO2 03/27/19 13:26 99.1 86 16 127/40 99 Room Air Status: improved Disposition: ADMITTED INPATIENT Condition: Serious Referrals: NOT CHOSEN IPA/,REFERRING (PCP) Monica Chao DO Mar 27, 2019 14:53
--- NOTE | 2019-03-27 15:00 | NUR ---
Note osmel in EDM - 03/27/19 at 1754 by [facility] ED Nurse Note: ERMD notified of BP 159/62 with HR 70. Patient remained awake, alert, oriented x 4. Regular, unlabored breathing noted. Able to move all four extremities.
--- NOTE | 2019-03-27 15:00 | NUR ---
ED Nurse Note: No facial grimacing or guarding noted. Patient resting in bed.
--- NOTE | 2019-03-27 16:14 | NUR ---
ED Nurse Note: Report given to DIMITRIOS Caldwell at 4W.
--- NOTE | 2019-03-27 16:55 | NUR ---
ED Nurse Note: patient is being transferred to med-surgical floor via gurney by GEOVANNA Yap. Patient awake, alert, orietned x 4. No facial grimacing or guarding noted.
[2019-03-27 17:00] VITALS: BP 109/59
--- NOTE | 2019-03-27 17:00 | NUR ---
NURSE NOTES: Pt arrived via gurney from ED to room 412-1, accompanied by son. Pt awake, alert, oriented, calm, talkative, irish speaking only, son translated, no complaints of pain at this time. No apparent distress noted. IV Flagyl administered and running from ED. Oriented pt to room, call light, bathroom, hourly rounding policy, discussed plan of care. Assessment and vitals obtained. See flowsheet. Provided pt and family with educational material regarding admitting diagnosis. Called kitchen for dietary tray. Bed in lowest position, call light within reach, side rails up.
[2019-03-27] MEDS: NovoLOG Insulin Flexpen SUBQ SCH ×2 (18:11→20:58)
--- NOTE | 2019-03-27 18:12 | NUR ---
NURSE NOTES: Pt received novolog past the scheduled administration time because pt didn't get admitted until past 1700.
--- NOTE | 2019-03-27 18:14 | History & Physical ---
History and Physical History & Physicial Dictated for Int Med-Dr Camargo no. [id number]. Isaías Atwood MD Mar 27, 2019 18:14
--- NOTE | 2019-03-27 18:43 | NUR ---
NURSE NOTES: Left message for Dr. Sunshine regarding pt's home med Memantine dose. Home Memantine 7mg PO QD. [facility] does not have 7mg. Pt is out of home medication, but did take last dose 03/26/2019 @1930. [facility] requested MD change dose.
--- NOTE | 2019-03-27 19:00 | History and Physical Report ---
DATE OF ADMISSION: 03/27/2019 CHIEF COMPLAINT: The patient is an 83-year-old female, who presents with a chief complaint of abdominal pain and nausea. HISTORY OF PRESENT ILLNESS: Began on Sunday with right upper quadrant pain. Pain now radiates to the epigastric region. The patient also has had nausea without vomiting. The patient presented to [facility] emergency room. An initial CAT scan revealed acute cholecystitis. The patient is admitted with acute cholecystitis and cholelithiasis. REVIEW OF SYSTEMS: CONSTITUTIONAL: The patient denies weight loss or weight gain. The patient denies fevers or chills. HEENT: The patient denies ear or throat pain. The patient denies headache. CARDIOVASCULAR: The patient denies palpitations or chest pain. CHEST: The patient denies wheeze or shortness of breath. ABDOMEN: The patient complains of epigastric pain and right upper quadrant pain as above. The patient complains of nausea above. The patient denies diarrhea or constipation. GENITOURINARY: The patient denies dysuria or increased frequency of urination. NEUROMUSCULAR: The patient denies seizures or generalized weakness. PAST MEDICAL HISTORY: Significant for: 1. Type 2 diabetes. 2. Hypertension. 3. Hypercholesterolemia. 4. Asthma. 5. Arthritis. 6. Osteoporosis. PAST SURGICAL HISTORY: Significant for: 1. Total abdominal hysterectomy and oophorectomy. 2. Bilateral cataract surgery. CURRENT MEDICATIONS: 1. Albuterol nebulized q.4 h. p.r.n. 2. ProAir two puffs p.o. q.i.d. p.r.n. 3. Amlodipine 5 mg p.o. daily. 4. Aspirin 81 mg p.o. daily. 5. Pepcid 20 mg p.o. daily. 6. Losartan 25 mg p.o. daily. 7. Namenda 5 mg p.o. daily. 8. Metformin 500 mg p.o. twice daily. 9. Singulair 10 mg p.o. daily. 10. Omeprazole 20 mg p.o. daily. 11. Protonix 40 mg p.o. daily. 12. Pravastatin 20 mg p.o. nightly. ALLERGIES: No known drug allergies. SOCIAL HISTORY: The patient is single and lives with her adult son, who is present at the bedside. The patient denies tobacco or alcohol use. PHYSICAL EXAMINATION: VITAL SIGNS: Temperature 99.1, respirations 16, pulse 86, and blood pressure 127/40. GENERAL: The patient is a well-developed and well-nourished female, in no apparent distress. HEENT: Eyes, pupils are equal and responsive to light and accommodation. Extraocular movements are intact. NECK: Supple without lymphadenopathy. CHEST: Lungs are clear to auscultation bilaterally without wheezes or rales. CARDIOVASCULAR: Regular rhythm and rate. S1, S2 normal without murmurs, rubs, or gallops. ABDOMEN: Soft, nondistended with decreased bowel sounds. There is pain to palpation to right upper quadrant. No evidence of rebound or guarding noted. EXTREMITIES: Negative for clubbing, cyanosis, or edema. RECTAL/GENITAL: Not performed. NEUROLOGIC: Cranial nerves II through XII are grossly intact without focal deficits. Motor strength is 5/5 bilaterally. Deep tendon reflexes are 2+ plantar. IMAGING: CT scan of the abdomen and pelvis revealed severe distention of the gallbladder with gallbladder wall thickening and presence of a large intramural gallstone. This is consistent with acute cholecystitis/cholelithiasis. LABORATORY STUDIES: WBC 11.8, hemoglobin 10.0, hematocrit 30.9, and platelets 499,000. Sodium 136, potassium 4.1, chloride 98, CO2 27, BUN 19, and creatinine 1.0. Glucose 133. AST elevated at 612, ALT elevated at 592, and alkaline phosphatase elevated at 352. ASSESSMENT: This is an 83-year-old female with: 1. Right upper quadrant pain. 2. Acute cholecystitis. 3. Cholelithiasis. 4. Elevated liver function tests. 5. Diverticulitis. 6. Diabetes type 2. 7. Hypertension. 8. Hypercholesterolemia. 9. Asthma. TREATMENT: 1. Right upper quadrant pain/diverticulitis. A Gastroenterology consultation has been obtained with Dr. Panda Friedman. The patient may require ERCP during the hospitalization. We will follow recommendations of Gastroenterology. 2. Acute cholecystitis/cholelithiasis. A General Surgery consultation has been obtained with Dr. Perez. The patient has been started empirically on intravenous ciprofloxacin and metronidazole. We will follow recommendations of General Surgery. 3. Elevated liver function tests. Differential includes acute hepatitis secondary to cholelithiasis versus chronic hepatitis. A hepatitis panel is pending. As above, a Gastroenterology consultation has been obtained with Dr. Panda Friedman. 4. Diabetes type 2. The patient has been placed on NovoLog sliding scale. 5. Hypertension. The patient is currently hypotensive. Hold amlodipine above. 6. Hypercholesterolemia. Continue simvastatin 20 mg p.o. daily. 7. Asthma. Isaías Atwood M.D. DR: KELSEY JOB#: [id number] CC:
--- NOTE | 2019-03-27 19:34 | NUR ---
HAND-OFF: Report given to DIMITRIOS Joseph.
[2019-03-27 19:54] VITALS: BP 135/71
--- NOTE | 2019-03-27 20:09 | NUR ---
NURSE NOTES: Received patient awake,alert,verbal,[place] speaking,ambulatory,with stable vital signs.
[2019-03-27] MEDS: Heparin 5000 units/ml inj SUBQ SCH (20:57)
[2019-03-28 00:17] VITALS: BP 138/58
[2019-03-28 04:00] VITALS: BP 136/57
[2019-03-28] MEDS: NovoLOG Insulin Flexpen SUBQ SCH ×4 (05:47→21:00)
[2019-03-28 06:35] LABS: EOSINOPHILS % (AUTO) 1.5 % (0.0-3.0); HEMATOCRIT 29.6 % (37.0-47.0); HEMOGLOBIN 9.5 G/DL (12.0-16.0); LYMPHOCYTES % (AUTO) 18.6 % (20.0-45.0); MEAN CORPUSCULAR VOLUME 88 FL (80-99); MONOCYTES % (AUTO) 11.9 % (1.0-10.0); NEUTROPHILS % (AUTO) 67.1 % (45.0-75.0); PLATELET COUNT 434 K/UL (150-450); RED BLOOD COUNT 3.38 M/UL (4.20-5.40); RED CELL DISTRIBUTION WIDTH 12.5 % (11.6-14.8)
--- NOTE | 2019-03-28 07:24 | NUR ---
HAND-OFF: Report given to Rashad Mcnamara RN.
--- NOTE | 2019-03-28 07:44 | NUR ---
NURSE NOTES: PT IS SITTING ON BED, EATING BREAKFAST. PT STATES SHE HAS LITTLE APPETITE. PT HAS EATEN ONLY HER SOUP ON BREAKFAST TRAY. PT DENIES NAUSEA OR VOMITING. PT STATES SMALL PAIN OF ABDOMEN AND RUBS UPPER MID-ABDOMEN AND STATES SHE ALSO HAS BURNING PAIN OF ESOPHAGUS. PT DENIES DIZZINESS WHEN AMBULATING. HAS CANE AT BEDSIDE. WILL CONTINUE TO MONITOR.
[2019-03-28 07:47] LABS: ALANINE AMINOTRANSFERASE 519 U/L (12-78); ALBUMIN 2.8 G/DL (3.4-5.0); ALBUMIN/GLOBULIN RATIO 0.7 (1.0-2.7); ALKALINE PHOSPHATASE 341 U/L (46-116); ANION GAP 5 mmol/L (5-15); ASPARTATE AMINO TRANSFERASE 486 U/L (15-37); BILIRUBIN,TOTAL 0.8 MG/DL (0.2-1.0); BLOOD UREA NITROGEN 9 mg/dL (7-18); CALCIUM 9.3 MG/DL (8.5-10.1); CARBON DIOXIDE 29 MMOL/L (21-32); CHLORIDE 102 MMOL/L (98-107); CHOLESTEROL 148 MG/DL (< 200); CREATININE 0.8 MG/DL (0.55-1.30); HDL CHOLESTEROL 74 MG/DL (40-60); POTASSIUM 4.4 MMOL/L (3.5-5.1); SODIUM 136 MMOL/L (136-145); TRIGLYCERIDES 61 MG/DL (30-150)
[2019-03-28 08:00] VITALS: BP 153/67
[2019-03-28] MEDS: Memantine 5 MG TAB ORAL SCH (08:49)
[2019-03-28] MEDS: Heparin 5000 units/ml inj SUBQ SCH ×2 (08:50→21:07)
[2019-03-28] MEDS ORDERED: Memantine 10mg tab ORAL SCH (09:00)
--- NOTE | 2019-03-28 09:15 | NUR ---
P.T NOTE: P.T EVALUATION COMPLETED. PATIENT IS ALERT, O X 4 , PLEASANT AND COOPERATIVE. PATIENT IS CURRENTLY BASELINE INDEPENDENTLY IN ALL AREAS OF ADL/FUNCTIONAL MOBILITIES, GAIT/LOCOMOTION. PRESENT FUNCTIONAL STATUS DOES NOT WARRANT SKILLED P.T SERVICES AT THIS TIME. D/C P.T SERVICES. THANK YOU FOR THIS REFERRAL.
--- NOTE | 2019-03-28 10:53 | GI Initial Consult Note ---
History of Present Illness General Date patient seen: Mar 28, 2019 Time patient seen: 10:39 Reason for Hospitalization: Generalized Weakness Referring physician: BRETT CAMARGO Reason for Consultation: ABDOMINAL PAIN Present Illness HPI This patient is accompanied by her son. For the past 4 days that she has had no appetite and has had generalized weakness. She also has had intermittent upper abdominal pain. She has no pain right now. She denies fever or chills. She denies nausea or vomiting. She denies chest pain or shortness of breath. She denies dysuria or hematuria. She has no other complaints. GI consulted for abdominal pain/FTT. At time of evaluation, patient with NAD had c/o of upper abdominal pain. Abdomen was soft, tenderness to RUQ/LUQ with guarding, non distended. Denied any N/V/D. Abdominal pelvis CT noted presence of cholelithiasis and wall thickening of the sigmoid colon. Patient also noted with anemia and transaminitis. Home Meds Active Scripts Doxycycline Hyclate (DOXYCYCLINE HYCLATE) 100 Mg Capsule, 100 MG PO BID, #14 CAP Prov:Karen العراقي MEDICAL DEVICE SALES CONSULTANT 04/10/17 Cephalexin* (KEFLEX*) 500 Mg Capsule, 500 MG ORAL EVERY 12 HOURS, #14 CAP 0 Refills Prov:Karen العراقي [employer]ICAL DEVICE SALES CONSULTANT 04/10/17 Reported Medications Memantine Hcl* (NAMENDA*) 5 Mg Tablet, 7 MG ORAL DAILY, TAB 03/27/19 Aspirin (Aspirin EC) 81 Mg Tablet.dr, 81 MG ORAL DAILY, TAB 03/27/19 Pravastatin Sod* (PRAVASTATIN SOD*) 20 Mg Tablet, 20 MG ORAL BEDTIME, TAB 03/27/19 Famotidine (FAMOTIDINE) 20 Mg Tablet, 20 MG ORAL DAILY, #30 TAB 0 Refills 03/27/19 Simvastatin (ZOCOR) 20 Mg Tablet, 20 MG ORAL BEDTIME, TAB 04/03/17 Albuterol Sulfate* (PROAIR HFA*) 8.5 Gm Hfa.aer.ad, 1 PUFF INH Q6H, #8.5 GM 0 Refills 04/03/17 Pantoprazole* (PROTONIX*) 40 Mg Tablet.dr, 40 MG ORAL DAILY, TAB 04/03/17 Montelukast Sodium* (MONTELUKAST SODIUM*) 10 Mg Tablet, 10 MG ORAL DAILY, TAB 04/03/17 Losartan Potassium (Losartan Potassium) 25 Mg Tablet, 25 MG PO DAILY, TAB 04/03/17 Amlodipine Besylate (Norvasc) 10 Mg Tablet, 5 MG ORAL DAILY, TAB 04/03/17 Albuterol Sulfate* (ALBUTEROL SULFATE HHN*) 2.5 Mg/3 Ml Vial.neb, 3 ML INH Q4H PRN for Shortness of Breath, EA 04/03/17 Omeprazole (OMEPRAZOLE) 10 Mg Capsule.dr, ORAL DAILY, #30 CAP 0 Refills 04/03/17 Metformin Hcl* (METFORMIN HCL*) 500 Mg Tablet, ORAL TWICE A DAY, TAB 04/03/17 Med list reviewed/reconciled: Yes Allergies: Coded Allergies: No Known Allergies (Unverified , 04/03/17) Patient History History Provided By: Patient PMH Narrative Past Medical History: see triage record, DM, HTN, asthma Social History: Denies: smoking, alcohol use, drug use Now: No Reviewed Nursing Documentation: PMH: Agreed; PSxH: Agreed Nursing Documentation-PMH Past Medical History: No History, Except For Hx Hypertension: Yes Hx Asthma: Yes Hx Diabetes: Yes Review of Systems All Other Systems: negative except mentioned in HPI Physical Exam Vital Signs Date Time Temp Pulse Resp B/P (MAP) Pulse Ox O2 Delivery O2 Flow Rate FiO2 03/27/19 10:34 99.0 83 17 154/76 (102) 98 Room Air Sp02 EP Interpretation: reviewed, normal Labs Laboratory Tests Test 03/27/19 11:00 03/28/19 05:45 White Blood Count 11.8 K/UL (4.8-10.8) H 7.0 K/UL (4.8-10.8) Red Blood Count 3.55 M/UL (4.20-5.40) L 3.38 M/UL (4.20-5.40) L Hemoglobin 10.0 G/DL (12.0-16.0) L 9.5 G/DL (12.0-16.0) L Hematocrit 30.9 % (37.0-47.0) L 29.6 % (37.0-47.0) L Mean Corpuscular Volume 87 FL (80-99) 88 FL (80-99) Mean Corpuscular Hemoglobin 28.0 PG (27.0-31.0) 28.2 PG (27.0-31.0) Mean Corpuscular Hemoglobin Concent 32.2 G/DL (32.0-36.0) 32.2 G/DL (32.0-36.0) Red Cell Distribution Width 12.5 % (11.6-14.8) 12.5 % (11.6-14.8) Platelet Count 499 K/UL (150-450) H 434 K/UL (150-450) Mean Platelet Volume 4.5 FL (6.5-10.1) L 4.8 FL (6.5-10.1) L Neutrophils (%) (Auto) % (45.0-75.0) 67.1 % (45.0-75.0) Lymphocytes (%) (Auto) % (20.0-45.0) 18.6 % (20.0-45.0) L Monocytes (%) (Auto) % (1.0-10.0) 11.9 % (1.0-10.0) H Eosinophils (%) (Auto) % (0.0-3.0) 1.5 % (0.0-3.0) Basophils (%) (Auto) % (0.0-2.0) 1.0 % (0.0-2.0) Differential Total Cells Counted 100 Neutrophils % (Manual) 88 % (45-75) H Lymphocytes % (Manual) 6 % (20-45) L Monocytes % (Manual) 6 % (1-10) Eosinophils % (Manual) 0 % (0-3) Basophils % (Manual) 0 % (0-2) Band Neutrophils 0 % (0-8) Platelet Estimate Adequate Platelet Morphology Normal Hypochromasia 1+ Prothrombin Time 10.0 SEC (9.30-11.50) Prothromb Time International Ratio 0.9 (0.9-1.1) Activated Partial Thromboplast Time 27 SEC (23-33) Urine Color Yellow Urine Appearance Clear Urine pH 5 (4.5-8.0) Urine Specific [place] 1.020 (1.005-1.035) Urine Protein 2+ (NEGATIVE) H Urine Glucose (UA) Negative (NEGATIVE) Urine Ketones 1+ (NEGATIVE) H Urine Blood Negative (NEGATIVE) Urine Nitrite Negative (NEGATIVE) Urine Bilirubin 2+ (NEGATIVE) H Urine Ictotest Positive (NEGATIVE) Urine Urobilinogen 4 MG/DL (0.0-1.0) H Urine Leukocyte Esterase 1+ (NEGATIVE) H Urine RBC 0-2 /HPF (0 - 2) Urine WBC 2-4 /HPF (0 - 2) Urine Squamous Epithelial Cells Few /LPF (NONE/OCC) Urine Bacteria Few /HPF (NONE) Urine Hyaline Casts 0-2 /LPF (NONE) H Sodium Level 136 MMOL/L (136-145) 136 MMOL/L (136-145) Potassium Level 4.1 MMOL/L (3.5-5.1) 4.4 MMOL/L (3.5-5.1) Chloride Level 98 MMOL/L (98-107) 102 MMOL/L (98-107) Carbon Dioxide Level 27 MMOL/L (21-32) 29 MMOL/L (21-32) Anion Gap 12 mmol/L (5-15) 5 mmol/L (5-15) Blood Urea Nitrogen 19 mg/dL (7-18) H 9 mg/dL (7-18) Creatinine 1.0 MG/DL (0.55-1.30) 0.8 MG/DL (0.55-1.30) Estimat Glomerular Filtration Rate mL/min (>60) mL/min (>60) Glucose Level 133 MG/DL (74-106) H 146 MG/DL (74-106) H Lactic Acid Level 1.50 mmol/L (0.4-2.0) Calcium Level 9.4 MG/DL (8.5-10.1) 9.3 MG/DL (8.5-10.1) Total Bilirubin 0.9 MG/DL (0.2-1.0) 0.8 MG/DL (0.2-1.0) Aspartate Amino Transf (AST/SGOT) 612 U/L (15-37) H 486 U/L (15-37) H Alanine Aminotransferase (ALT/SGPT) 592 U/L (12-78) H 519 U/L (12-78) H Alkaline Phosphatase 352 U/L (46-116) H 341 U/L (46-116) H Total Creatine Kinase 71 U/L (26-308) Creatine Kinase MB 1.4 NG/ML (0.0-3.6) Creatine Kinase MB Relative Index 1.9 Troponin I 0.000 ng/mL (0.000-0.056) Total Protein 8.0 G/DL (6.4-8.2) 6.8 G/DL (6.4-8.2) Albumin 3.3 G/DL (3.4-5.0) L 2.8 G/DL (3.4-5.0) L Globulin 4.7 g/dL 4.0 g/dL Albumin/Globulin Ratio 0.7 (1.0-2.7) L 0.7 (1.0-2.7) L Lipase 290 U/L (73-393) Hemoglobin A1c 7.0 % (4.3-6.0) H Triglycerides Level 61 MG/DL (30-150) Cholesterol Level 148 MG/DL (< 200) LDL Cholesterol 63 mg/dL (<100) HDL Cholesterol 74 MG/DL (40-60) H Cholesterol/HDL Ratio 2.0 (3.3-4.4) L Thyroid Stimulating Hormone (TSH) 1.129 uiU/mL (0.358-3.740) General Appearance: well appearing, no apparent distress, alert Head: normocephalic EENT: PERRL/EOMI, normal ENT inspection Neck: supple Respiratory: normal breath sounds, no respiratory distress Cardiovascular: normal rate Gastrointestinal: normal inspection, non tender, soft, normal bowel sounds, non -distended Rectal: deferred Genitourinary: no CVA tenderness Musculoskeletal: normal inspection, back normal Neurologic: normal inspection, alert, oriented x3, responsive Psychiatric: normal inspection, judgement/insight normal, memory normal Skin: normal inspection, normal color, no rash, warm/dry, palpation normal, well hydrated Lymphatic: normal inspection, no adenopathy Current Medications Current Medications Medications (Trade) Dose Ordered Sig/Lora Route PRN Reason Start Time Stop Time Status Last Admin Dose Admin Acetaminophen (Tylenol) 650 mg Q4H PRN ORAL fever 03/27/19 13:30 04/26/19 13:29 Amlodipine Besylate (Norvasc) 5 mg DAILY ORAL 03/28/19 09:00 04/27/19 08:59 03/28/19 08:48 Dextrose (Dextrose 50%) 25 ml Q30M PRN IV Hypoglycemia 03/27/19 13:30 04/26/19 13:29 Dextrose (Dextrose 50%) 50 ml Q30M PRN IV Hypoglycemia 03/27/19 13:30 04/26/19 13:29 Heparin Sodium (Porcine) (Heparin 5000 units/ml) 5,000 units EVERY 12 HOURS SUBQ 03/27/19 21:00 04/26/19 20:59 03/28/19 08:50 Insulin Aspart (NovoLOG) BEFORE MEALS AND HS SUBQ 03/27/19 16:30 04/26/19 16:29 03/28/19 05:47 Iohexol (OMNIPAQUE-300 100ml) 100 ml NOW PRN INJ Radiology Procedure 03/27/19 10:45 03/29/19 10:43 Lorazepam (Ativan 2mg/ml 1ml) 0.5 mg Q4H PRN IV For Anxiety 03/27/19 13:30 04/03/19 13:29 Memantine (Namenda) 5 mg DAILY ORAL 03/28/19 09:00 04/27/19 08:59 03/28/19 08:49 Morphine Sulfate (Morphine Sulfate) 1 mg Q4H PRN IVP For Pain 03/27/19 13:30 04/03/19 13:29 Ondansetron HCl (Zofran) 4 mg Q6H PRN IVP Nausea & Vomiting 03/27/19 13:30 04/26/19 13:29 Polyethylene Glycol (Miralax) 17 gm HSPRN PRN ORAL Constipation 03/27/19 13:30 04/26/19 13:29 Pravastatin Sodium (Pravachol) 20 mg BEDTIME ORAL 03/27/19 21:00 04/26/19 20:59 03/27/19 20:56 Zolpidem Tartrate (Ambien) 5 mg HSPRN PRN ORAL Insomnia 03/27/19 13:30 04/03/19 13:29 GI: Plan Problems: (1) Elevated liver enzymes (2) Diverticulitis (3) Failure to thrive in adult (4) Cholecystitis (5) Hepatitis (6) Cholelithiases (7) Generalized weakness Plan 83 year old female patient presents with FTT reported decreased PO intake over the course of 4 days most likely 2/2 to abdominal pain. surgical follow up for possible cholecystectomy medical management for diverticulitis bowel rest, maintain NPO + IVFs >> adv diet as tolerated pain management anemia work up, will consider endoscopy if needed OB stool r/o GI bleed monitor H&H, prn transfusions bowel regimen ppi fu labs abx advance diet as tolerated obtain hepatitis panel, trend LFTs patient needs outpatient colonoscopy in 2 months to evaluate diverticulitis Discussed with Dr. Friedman. Thank you for this patient referral, we will follow. The patient was seen and examined at bedside and all new and available data was reviewed in the patients chart. I agree with the above findings, impression and plan. (Patient seen earlier today. Signature stamp does not reflect patient encounter time.). - MD Isha [facility] MEDICAL DEVICE SALES CONSULTANT Mar 28, 2019 10:53
--- NOTE | 2019-03-28 11:00 | Consultation ---
History of Present Illness General Date patient seen: Mar 27, 2019 Reason for Hospitalization: Generalized Weakness Present Illness HPI This is a very pleasant 83-year-old female who presented to the emergency department with her son complaining of decreased appetite and upper abdominal discomfort 4 days. Patient and son state that she just has not been feeling well and has had no appetite. Decided to come in for evaluation and she was concerned given the above symptoms. No current nausea vomiting fever or chills. Decreased activity and energy. Normal bowel movements. In emergency department identified to have a leukocytosis and significantly abnormal LFTs as well as imaging. Surgery called to evaluate her. Patient initially seen in the emergency department. Patient evaluated spoke with family and patient regarding findings and care plan. Full examination completed emergency department this is a late entry in regards to no placement. Allergies: Coded Allergies: No Known Allergies (Unverified , 04/03/17) Medication History Scheduled Albuterol Sulfate* (Proair Hfa*), 1 PUFF INH Q6H, (Reported) Amlodipine Besylate (Norvasc), 5 MG ORAL DAILY, (Reported) Aspirin (Aspirin EC), 81 MG ORAL DAILY, (Reported) Cephalexin* (Keflex*), 500 MG ORAL EVERY 12 HOURS Doxycycline Hyclate (Doxycycline Hyclate), 100 MG PO BID Famotidine (Famotidine), 20 MG ORAL DAILY, (Reported) Losartan Potassium (Losartan Potassium), 25 MG PO DAILY, (Reported) Memantine Hcl* (Namenda*), 7 MG ORAL DAILY, (Reported) Metformin Hcl* (Metformin Hcl*), Unknown Dose ORAL TWICE A DAY, (Reported) Montelukast Sodium* (Montelukast Sodium*), 10 MG ORAL DAILY, (Reported) Omeprazole (Omeprazole), Unknown Dose ORAL DAILY, (Reported) Pantoprazole* (Protonix*), 40 MG ORAL DAILY, (Reported) Pravastatin Sod* (Pravastatin Sod*), 20 MG ORAL BEDTIME, (Reported) Simvastatin (Zocor), 20 MG ORAL BEDTIME, (Reported) Scheduled PRN Albuterol Sulfate* (Albuterol Sulfate Hhn*), 3 ML INH Q4H PRN for Shortness of Breath, (Reported) Patient History Limited by: language barrier History Provided By: Patient, Family Member, Medical Record, PMD Healthcare decision maker Resuscitation status Advanced Directive on File Past Medical/Surgical History Past Medical/Surgical History: (1) Diabetes mellitus (2) Achilles tendinitis (3) Generalized weakness (4) Cholecystitis (5) Cholelithiases (6) Diverticulitis (7) Hepatitis (8) Elevated liver enzymes (9) Failure to thrive in adult Review of Systems Review of Symptoms General ROS: no weight loss or fever Psychological ROS: no depression or mood changes, no memory loss Ophthalmic ROS: no visual changes or eye irritation ENT ROS: no nasal congestion, hearing loss, dizziness Allergy and Immunology ROS: no allergic symptoms or urticaria Hematological and Lymphatic ROS: no swollen glands, unusual bleeding or bruising Endocrine ROS: no polyuria, polydipsia, weight changes, temperature intolerance Respiratory ROS: no cough, shortness of breath, or wheezing Cardiovascular ROS: no chest pain or dyspnea on exertion Gastrointestinal ROS: denies abdominal pain, no bright red blood in stool. Musculoskeletal ROS: no myalgias or arthralgias Neurological ROS: no TIA or stroke symptoms Dermatological ROS: no new or changing skin lesions, rashes or pruritis Physical Exam Physical Exam General appearance: alert, cooperative, no distress, appears stated age Head: Normocephalic, without obvious abnormality, atraumatic Eyes: conjunctivae/corneas clear. PERRL, EOM's intact. Fundi benign Throat: Lips, mucosa, and tongue normal. Teeth and gums normal Neck: supple, symmetrical, trachea midline, no adenopathy, thyroid: not enlarged, symmetric, no tenderness/mass/nodules, no carotid bruit and no JVD Lungs: clear to auscultation bilaterally Heart: regular rate and rhythm, S1, S2 normal, no murmur, click, rub or gallop Abdomen: soft, non-tender. Bowel sounds normal. No masses, no organomegaly Extremities: extremities normal, atraumatic, no cyanosis or edema Pulses: 2+ and symmetric Skin: Skin color, texture, turgor normal. No rashes or lesions Neurologic: Grossly normal Last 24 Hour Vital Signs Date Time Temp Pulse Resp B/P (MAP) Pulse Ox O2 Delivery O2 Flow Rate FiO2 03/28/19 09:00 Room Air 03/28/19 08:48 81 153/67 03/28/19 08:00 98.3 81 18 153/67 (95) 97 03/28/19 04:00 97.8 81 20 136/57 (83) 94 03/28/19 00:17 98.3 78 20 138/58 (84) 95 03/27/19 20:17 Room Air 03/27/19 19:54 98.9 90 20 135/71 (92) 96 03/27/19 17:53 Room Air 03/27/19 17:00 99.0 72 14 109/59 (76) 94 03/27/19 16:44 76 17 129/59 99 Room Air 03/27/19 14:30 76 16 123/49 99 Room Air 03/27/19 13:26 99.1 86 16 127/40 99 Room Air 03/27/19 10:59 84 16 Room Air 03/27/19 10:57 84 16 134/77 99 Room Air Intake and Output 03/27/19 03/28/19 19:00 07:00 Intake Total 1660 ml Balance 1660 ml Intake Oral 360 ml IV Total 1300 ml # Voids 1 2 Laboratory Tests Test 03/27/19 11:00 03/28/19 05:45 White Blood Count 11.8 K/UL (4.8-10.8) H 7.0 K/UL (4.8-10.8) Red Blood Count 3.55 M/UL (4.20-5.40) L 3.38 M/UL (4.20-5.40) L Hemoglobin 10.0 G/DL (12.0-16.0) L 9.5 G/DL (12.0-16.0) L Hematocrit 30.9 % (37.0-47.0) L 29.6 % (37.0-47.0) L Mean Corpuscular Volume 87 FL (80-99) 88 FL (80-99) Mean Corpuscular Hemoglobin 28.0 PG (27.0-31.0) 28.2 PG (27.0-31.0) Mean Corpuscular Hemoglobin Concent 32.2 G/DL (32.0-36.0) 32.2 G/DL (32.0-36.0) Red Cell Distribution Width 12.5 % (11.6-14.8) 12.5 % (11.6-14.8) Platelet Count 499 K/UL (150-450) H 434 K/UL (150-450) Mean Platelet Volume 4.5 FL (6.5-10.1) L 4.8 FL (6.5-10.1) L Neutrophils (%) (Auto) % (45.0-75.0) 67.1 % (45.0-75.0) Lymphocytes (%) (Auto) % (20.0-45.0) 18.6 % (20.0-45.0) L Monocytes (%) (Auto) % (1.0-10.0) 11.9 % (1.0-10.0) H Eosinophils (%) (Auto) % (0.0-3.0) 1.5 % (0.0-3.0) Basophils (%) (Auto) % (0.0-2.0) 1.0 % (0.0-2.0) Differential Total Cells Counted 100 Neutrophils % (Manual) 88 % (45-75) H Lymphocytes % (Manual) 6 % (20-45) L Monocytes % (Manual) 6 % (1-10) Eosinophils % (Manual) 0 % (0-3) Basophils % (Manual) 0 % (0-2) Band Neutrophils 0 % (0-8) Platelet Estimate Adequate Platelet Morphology Normal Hypochromasia 1+ Prothrombin Time 10.0 SEC (9.30-11.50) Prothromb Time International Ratio 0.9 (0.9-1.1) Activated Partial Thromboplast Time 27 SEC (23-33) Urine Color Yellow Urine Appearance Clear Urine pH 5 (4.5-8.0) Urine Specific [place] 1.020 (1.005-1.035) Urine Protein 2+ (NEGATIVE) H Urine Glucose (UA) Negative (NEGATIVE) Urine Ketones 1+ (NEGATIVE) H Urine Blood Negative (NEGATIVE) Urine Nitrite Negative (NEGATIVE) Urine Bilirubin 2+ (NEGATIVE) H Urine Ictotest Positive (NEGATIVE) Urine Urobilinogen 4 MG/DL (0.0-1.0) H Urine Leukocyte Esterase 1+ (NEGATIVE) H Urine RBC 0-2 /HPF (0 - 2) Urine WBC 2-4 /HPF (0 - 2) Urine Squamous Epithelial Cells Few /LPF (NONE/OCC) Urine Bacteria Few /HPF (NONE) Urine Hyaline Casts 0-2 /LPF (NONE) H Sodium Level 136 MMOL/L (136-145) 136 MMOL/L (136-145) Potassium Level 4.1 MMOL/L (3.5-5.1) 4.4 MMOL/L (3.5-5.1) Chloride Level 98 MMOL/L (98-107) 102 MMOL/L (98-107) Carbon Dioxide Level 27 MMOL/L (21-32) 29 MMOL/L (21-32) Anion Gap 12 mmol/L (5-15) 5 mmol/L (5-15) Blood Urea Nitrogen 19 mg/dL (7-18) H 9 mg/dL (7-18) Creatinine 1.0 MG/DL (0.55-1.30) 0.8 MG/DL (0.55-1.30) Estimat Glomerular Filtration Rate mL/min (>60) mL/min (>60) Glucose Level 133 MG/DL (74-106) H 146 MG/DL (74-106) H Lactic Acid Level 1.50 mmol/L (0.4-2.0) Calcium Level 9.4 MG/DL (8.5-10.1) 9.3 MG/DL (8.5-10.1) Total Bilirubin 0.9 MG/DL (0.2-1.0) 0.8 MG/DL (0.2-1.0) Aspartate Amino Transf (AST/SGOT) 612 U/L (15-37) H 486 U/L (15-37) H Alanine Aminotransferase (ALT/SGPT) 592 U/L (12-78) H 519 U/L (12-78) H Alkaline Phosphatase 352 U/L (46-116) H 341 U/L (46-116) H Total Creatine Kinase 71 U/L (26-308) Creatine Kinase MB 1.4 NG/ML (0.0-3.6) Creatine Kinase MB Relative Index 1.9 Troponin I 0.000 ng/mL (0.000-0.056) Total Protein 8.0 G/DL (6.4-8.2) 6.8 G/DL (6.4-8.2) Albumin 3.3 G/DL (3.4-5.0) L 2.8 G/DL (3.4-5.0) L Globulin 4.7 g/dL 4.0 g/dL Albumin/Globulin Ratio 0.7 (1.0-2.7) L 0.7 (1.0-2.7) L Lipase 290 U/L (73-393) Hemoglobin A1c 7.0 % (4.3-6.0) H Triglycerides Level 61 MG/DL (30-150) Cholesterol Level 148 MG/DL (< 200) LDL Cholesterol 63 mg/dL (<100) HDL Cholesterol 74 MG/DL (40-60) H Cholesterol/HDL Ratio 2.0 (3.3-4.4) L Thyroid Stimulating Hormone (TSH) 1.129 uiU/mL (0.358-3.740) Height (Feet): 4 Height (Inches): 3.00 Weight (Pounds): 95 Medications Current Medications Medications (Trade) Dose Ordered Sig/Lora Route PRN Reason Start Time Stop Time Status Last Admin Dose Admin Acetaminophen (Tylenol) 650 mg Q4H PRN ORAL fever 03/27/19 13:30 04/26/19 13:29 Amlodipine Besylate (Norvasc) 5 mg DAILY ORAL 03/28/19 09:00 04/27/19 08:59 03/28/19 08:48 Dextrose (Dextrose 50%) 25 ml Q30M PRN IV Hypoglycemia 03/27/19 13:30 04/26/19 13:29 Dextrose (Dextrose 50%) 50 ml Q30M PRN IV Hypoglycemia 03/27/19 13:30 04/26/19 13:29 Heparin Sodium (Porcine) (Heparin 5000 units/ml) 5,000 units EVERY 12 HOURS SUBQ 03/27/19 21:00 04/26/19 20:59 03/28/19 08:50 Insulin Aspart (NovoLOG) BEFORE MEALS AND HS SUBQ 03/27/19 16:30 04/26/19 16:29 03/28/19 05:47 Iohexol (OMNIPAQUE-300 100ml) 100 ml NOW PRN INJ Radiology Procedure 03/27/19 10:45 03/29/19 10:43 Lorazepam (Ativan 2mg/ml 1ml) 0.5 mg Q4H PRN IV For Anxiety 03/27/19 13:30 04/03/19 13:29 Memantine (Namenda) 5 mg DAILY ORAL 03/28/19 09:00 04/27/19 08:59 03/28/19 08:49 Morphine Sulfate (Morphine Sulfate) 1 mg Q4H PRN IVP For Pain 03/27/19 13:30 04/03/19 13:29 Ondansetron HCl (Zofran) 4 mg Q6H PRN IVP Nausea & Vomiting 03/27/19 13:30 04/26/19 13:29 Polyethylene Glycol (Miralax) 17 gm HSPRN PRN ORAL Constipation 03/27/19 13:30 04/26/19 13:29 Pravastatin Sodium (Pravachol) 20 mg BEDTIME ORAL 03/27/19 21:00 04/26/19 20:59 03/27/19 20:56 Zolpidem Tartrate (Ambien) 5 mg HSPRN PRN ORAL Insomnia 03/27/19 13:30 04/03/19 13:29 Assessment/Plan Problem List: (1) Cholecystitis Assessment & Plan: Findings: The gallbladder is severely distended with wall thickening secondary to very large stones within the lumen. For example one of the stones measures about 6 x 3 cm. There is another stone and measures 2.7 cm. Cholecystitis is suspected. Biliary ducts are mildly prominent. The sigmoid colon appears abnormal. There are diverticula with ill-definition of the wall and slight thickening of the wall. Diverticulitis is not excluded and should be considered as well. There is an umbilical hernia containing fat. Bowel gas pattern is nonobstructive appendix is probably seen partially and unremarkable as such. The aorta and iliac arteries are tortuous moderately calcified. Bladder is nondistended. There is no ascites. There is no hydronephrosis, adrenal mass or splenomegaly. Pancreas is unremarkable. There is a hiatal hernia. Minimal streaky atelectasis versus scarring at the lung bases noted. There is narrowing of intervertebral discs and accompanying endplate osteophyte formation. Hypertrophied facet joints also demonstrated. Uterus is not seen. IMPRESSION: Severe distention of the gallbladder, wall thickening, secondary to a large intraluminal gallstones. Cholecystitis is suspected. Correlate clinically. Suspected diverticulitis in the sigmoid region with wall thickening and mild perisigmoid inflammation with multiple diverticula in the sigmoid colon and elsewhere in the colon. No abscess. Umbilical hernia containing fat Apparent hysterectomy Atherosclerotic vascular disease Degenerative changes of the spine ICD Codes: K81.9 - Cholecystitis, unspecified SNOMED: 72939523 (2) Cholelithiases Assessment & Plan: Multiple gallstones are demonstrated. Sonographic Florez's is negative per technologist. The liver is unremarkable. Doppler interrogation of the main portal vein shows patency with hepatopedal, monophasic flow. There is no biliary ductal dilatation identified. The demonstrated part of the pancreas, aorta and IVC show no definite abnormalities. Both kidneys appear unremarkable. There is no hydronephrosis. IMPRESSION: Cholelithiasis ICD Codes: K80.20 - Calculus of gallbladder without cholecystitis without obstruction SNOMED: 265240574 (3) Diverticulitis Assessment & Plan: medical management ICD Codes: K57.92 - Diverticulitis of intestine, part unspecified, without perforation or abscess without bleeding SNOMED: 505104506 (4) Elevated liver enzymes Assessment & Plan: hep panel labs trend will monitor ICD Codes: R74.8 - Abnormal levels of other serum enzymes SNOMED: 075673880 (5) Failure to thrive in adult Assessment & Plan: diet as tolerated ICD Codes: R62.7 - Adult failure to thrive SNOMED: 281182493 Alexandro Perez Mar 28, 2019 11:00
--- NOTE | 2019-03-28 11:06 | Surgery Progress Note ---
Surgery Progress Note Subjective Additional Comments Patient seen and examined bedside. States she feels better today. Very minimal right-sided abdominal pain No nausea vomiting fever chills. States she is hungry. Passing flatus. leukocytosis improved. Objective Last 24 Hour Vital Signs Date Time Temp Pulse Resp B/P (MAP) Pulse Ox O2 Delivery O2 Flow Rate FiO2 03/28/19 09:00 Room Air 03/28/19 08:48 81 153/67 03/28/19 08:00 98.3 81 18 153/67 (95) 97 03/28/19 04:00 97.8 81 20 136/57 (83) 94 03/28/19 00:17 98.3 78 20 138/58 (84) 95 03/27/19 20:17 Room Air 03/27/19 19:54 98.9 90 20 135/71 (92) 96 03/27/19 17:53 Room Air 03/27/19 17:00 99.0 72 14 109/59 (76) 94 03/27/19 16:44 76 17 129/59 99 Room Air 03/27/19 14:30 76 16 123/49 99 Room Air 03/27/19 13:26 99.1 86 16 127/40 99 Room Air I&O Intake and Output 03/27/19 03/28/19 19:00 07:00 Intake Total 1660 ml Balance 1660 ml Intake Oral 360 ml IV Total 1300 ml # Voids 1 2 Cardiovascular: RSR Respiratory: clear Abdomen: soft, non-tender, present bowel sounds, non-distended Extremities: no edema, no tenderness, no cyanosis Laboratory Tests Test 03/28/19 05:45 White Blood Count 7.0 K/UL (4.8-10.8) Red Blood Count 3.38 M/UL (4.20-5.40) L Hemoglobin 9.5 G/DL (12.0-16.0) L Hematocrit 29.6 % (37.0-47.0) L Mean Corpuscular Volume 88 FL (80-99) Mean Corpuscular Hemoglobin 28.2 PG (27.0-31.0) Mean Corpuscular Hemoglobin Concent 32.2 G/DL (32.0-36.0) Red Cell Distribution Width 12.5 % (11.6-14.8) Platelet Count 434 K/UL (150-450) Mean Platelet Volume 4.8 FL (6.5-10.1) L Neutrophils (%) (Auto) 67.1 % (45.0-75.0) Lymphocytes (%) (Auto) 18.6 % (20.0-45.0) L Monocytes (%) (Auto) 11.9 % (1.0-10.0) H Eosinophils (%) (Auto) 1.5 % (0.0-3.0) Basophils (%) (Auto) 1.0 % (0.0-2.0) Sodium Level 136 MMOL/L (136-145) Potassium Level 4.4 MMOL/L (3.5-5.1) Chloride Level 102 MMOL/L (98-107) Carbon Dioxide Level 29 MMOL/L (21-32) Anion Gap 5 mmol/L (5-15) Blood Urea Nitrogen 9 mg/dL (7-18) Creatinine 0.8 MG/DL (0.55-1.30) Estimat Glomerular Filtration Rate mL/min (>60) Glucose Level 146 MG/DL (74-106) H Hemoglobin A1c 7.0 % (4.3-6.0) H Calcium Level 9.3 MG/DL (8.5-10.1) Total Bilirubin 0.8 MG/DL (0.2-1.0) Aspartate Amino Transf (AST/SGOT) 486 U/L (15-37) H Alanine Aminotransferase (ALT/SGPT) 519 U/L (12-78) H Alkaline Phosphatase 341 U/L (46-116) H Total Protein 6.8 G/DL (6.4-8.2) Albumin 2.8 G/DL (3.4-5.0) L Globulin 4.0 g/dL Albumin/Globulin Ratio 0.7 (1.0-2.7) L Triglycerides Level 61 MG/DL (30-150) Cholesterol Level 148 MG/DL (< 200) LDL Cholesterol 63 mg/dL (<100) HDL Cholesterol 74 MG/DL (40-60) H Cholesterol/HDL Ratio 2.0 (3.3-4.4) L Thyroid Stimulating Hormone (TSH) 1.129 uiU/mL (0.358-3.740) Plan Problems: (1) Cholecystitis Assessment & Plan: Improving labs improved pain improved diet cont with medical management Findings: The gallbladder is severely distended with wall thickening secondary to very large stones within the lumen. For example one of the stones measures about 6 x 3 cm. There is another stone and measures 2.7 cm. Cholecystitis is suspected. Biliary ducts are mildly prominent. The sigmoid colon appears abnormal. There are diverticula with ill-definition of the wall and slight thickening of the wall. Diverticulitis is not excluded and should be considered as well. There is an umbilical hernia containing fat. Bowel gas pattern is nonobstructive appendix is probably seen partially and unremarkable as such. The aorta and iliac arteries are tortuous moderately calcified. Bladder is nondistended. There is no ascites. There is no hydronephrosis, adrenal mass or splenomegaly. Pancreas is unremarkable. There is a hiatal hernia. Minimal streaky atelectasis versus scarring at the lung bases noted. There is narrowing of intervertebral discs and accompanying endplate osteophyte formation. Hypertrophied facet joints also demonstrated. Uterus is not seen. IMPRESSION: Severe distention of the gallbladder, wall thickening, secondary to a large intraluminal gallstones. Cholecystitis is suspected. Correlate clinically. Suspected diverticulitis in the sigmoid region with wall thickening and mild perisigmoid inflammation with multiple diverticula in the sigmoid colon and elsewhere in the colon. No abscess. 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 Sonographic Florez's is negative per technologist. The liver is unremarkable. Doppler interrogation of the main portal vein shows patency with hepatopedal, monophasic flow. There is no biliary ductal dilatation identified. The demonstrated part of the pancreas, aorta and IVC show no definite abnormalities. Both kidneys appear unremarkable. There is no hydronephrosis. IMPRESSION: Cholelithiasis (3) Diverticulitis Assessment & Plan: medical management (4) Elevated liver enzymes Assessment & Plan: hep panel labs trend will monitor (5) Failure to thrive in adult Assessment & Plan: diet as tolerated Additional Comments I spoke with patient and the son in detail. We discussed plan. Given her age symptoms and current medical status will continue with medical management as patient and family not interested in surgical intervention unless absolutely necessary at this time. Alexandro Perez Mar 28, 2019 11:06
[2019-03-28 12:00] VITALS: BP 151/62
[2019-03-28] MEDS ORDERED: Morphine Sulfate 2mg/ml Inj(IV/IM USE ONLY) IVP PRN (12:15)
[2019-03-28] MEDS: Piperacillin/Tazobactam 3.375 GM in NS 110 ML IVPB SCH (12:28)
--- NOTE | 2019-03-28 15:23 | Consultation ---
History of Present Illness General Chief Complaint: Generalized Weakness Referring physician: BRETT CAMARGO Reason for Consultation: ABDOMINAL PAIN Present Illness HPI 83 year old female presented to ER with her son b/o no appetite and generalized weakness. She also has had intermittent upper abdominal pain.. She denies fever or chills. She denies nausea or vomiting. She denies chest pain or shortness of breath. She was diagnosed to have cholelithiasis and admitted for further management. Allergies: Coded Allergies: No Known Allergies (Unverified , 04/03/17) Medication History Scheduled Albuterol Sulfate* (Proair Hfa*), 1 PUFF INH Q6H, (Reported) Amlodipine Besylate (Norvasc), 5 MG ORAL DAILY, (Reported) Aspirin (Aspirin EC), 81 MG ORAL DAILY, (Reported) Cephalexin* (Keflex*), 500 MG ORAL EVERY 12 HOURS Doxycycline Hyclate (Doxycycline Hyclate), 100 MG PO BID Famotidine (Famotidine), 20 MG ORAL DAILY, (Reported) Losartan Potassium (Losartan Potassium), 25 MG PO DAILY, (Reported) Memantine Hcl* (Namenda*), 7 MG ORAL DAILY, (Reported) Metformin Hcl* (Metformin Hcl*), Unknown Dose ORAL TWICE A DAY, (Reported) Montelukast Sodium* (Montelukast Sodium*), 10 MG ORAL DAILY, (Reported) Omeprazole (Omeprazole), Unknown Dose ORAL DAILY, (Reported) Pantoprazole* (Protonix*), 40 MG ORAL DAILY, (Reported) Pravastatin Sod* (Pravastatin Sod*), 20 MG ORAL BEDTIME, (Reported) Simvastatin (Zocor), 20 MG ORAL BEDTIME, (Reported) Scheduled PRN Albuterol Sulfate* (Albuterol Sulfate Hhn*), 3 ML INH Q4H PRN for Shortness of Breath, (Reported) Patient History Healthcare decision maker Resuscitation status Advanced Directive on File Past Medical/Surgical History Past Medical/Surgical History: (1) Diverticulitis (2) Diabetes mellitus Review of Systems All Other Systems: negative except mentioned in HPI Physical Exam General Appearance: WD/WN Lines, tubes and drains: peripheral HEENT: normocephalic, atraumatic Neck: non-tender, normal alignment Respiratory/Chest: chest wall non-tender, lungs clear Breasts: no masses Cardiovascular/Chest: normal peripheral pulses, normal rate Abdomen: normal bowel sounds, non tender Genitourinary/Rectal: normal genital exam, normal rectal exam Extremities: normal range of motion, non-tender Skin Exam: normal pigmentation Last 24 Hour Vital Signs Date Time Temp Pulse Resp B/P (MAP) Pulse Ox O2 Delivery O2 Flow Rate FiO2 03/28/19 12:00 98.2 73 12 151/62 (91) 99 03/28/19 09:00 Room Air 03/28/19 08:48 81 153/67 03/28/19 08:00 98.3 81 18 153/67 (95) 97 03/28/19 04:00 97.8 81 20 136/57 (83) 94 03/28/19 00:17 98.3 78 20 138/58 (84) 95 03/27/19 20:17 Room Air 03/27/19 19:54 98.9 90 20 135/71 (92) 96 03/27/19 17:53 Room Air 03/27/19 17:00 99.0 72 14 109/59 (76) 94 03/27/19 16:44 76 17 129/59 99 Room Air Intake and Output 03/27/19 03/28/19 19:00 07:00 Intake Total 1660 ml Balance 1660 ml Intake Oral 360 ml IV Total 1300 ml # Voids 1 2 Laboratory Tests Test 03/28/19 05:45 White Blood Count 7.0 K/UL (4.8-10.8) Red Blood Count 3.38 M/UL (4.20-5.40) L Hemoglobin 9.5 G/DL (12.0-16.0) L Hematocrit 29.6 % (37.0-47.0) L Mean Corpuscular Volume 88 FL (80-99) Mean Corpuscular Hemoglobin 28.2 PG (27.0-31.0) Mean Corpuscular Hemoglobin Concent 32.2 G/DL (32.0-36.0) Red Cell Distribution Width 12.5 % (11.6-14.8) Platelet Count 434 K/UL (150-450) Mean Platelet Volume 4.8 FL (6.5-10.1) L Neutrophils (%) (Auto) 67.1 % (45.0-75.0) Lymphocytes (%) (Auto) 18.6 % (20.0-45.0) L Monocytes (%) (Auto) 11.9 % (1.0-10.0) H Eosinophils (%) (Auto) 1.5 % (0.0-3.0) Basophils (%) (Auto) 1.0 % (0.0-2.0) Sodium Level 136 MMOL/L (136-145) Potassium Level 4.4 MMOL/L (3.5-5.1) Chloride Level 102 MMOL/L (98-107) Carbon Dioxide Level 29 MMOL/L (21-32) Anion Gap 5 mmol/L (5-15) Blood Urea Nitrogen 9 mg/dL (7-18) Creatinine 0.8 MG/DL (0.55-1.30) Estimat Glomerular Filtration Rate mL/min (>60) Glucose Level 146 MG/DL (74-106) H Hemoglobin A1c 7.0 % (4.3-6.0) H Calcium Level 9.3 MG/DL (8.5-10.1) Total Bilirubin 0.8 MG/DL (0.2-1.0) Aspartate Amino Transf (AST/SGOT) 486 U/L (15-37) H Alanine Aminotransferase (ALT/SGPT) 519 U/L (12-78) H Alkaline Phosphatase 341 U/L (46-116) H Total Protein 6.8 G/DL (6.4-8.2) Albumin 2.8 G/DL (3.4-5.0) L Globulin 4.0 g/dL Albumin/Globulin Ratio 0.7 (1.0-2.7) L Triglycerides Level 61 MG/DL (30-150) Cholesterol Level 148 MG/DL (< 200) LDL Cholesterol 63 mg/dL (<100) HDL Cholesterol 74 MG/DL (40-60) H Cholesterol/HDL Ratio 2.0 (3.3-4.4) L Thyroid Stimulating Hormone (TSH) 1.129 uiU/mL (0.358-3.740) Height (Feet): 4 Height (Inches): 3.00 Weight (Pounds): 95 Medications Current Medications Medications (Trade) Dose Ordered Sig/Lora Route PRN Reason Start Time Stop Time Status Last Admin Dose Admin Acetaminophen (Tylenol) 650 mg Q4H PRN ORAL fever 03/27/19 13:30 04/26/19 13:29 Amlodipine Besylate (Norvasc) 5 mg DAILY ORAL 03/28/19 09:00 04/27/19 08:59 03/28/19 08:48 Dextrose (Dextrose 50%) 25 ml Q30M PRN IV Hypoglycemia 03/27/19 13:30 04/26/19 13:29 Dextrose (Dextrose 50%) 50 ml Q30M PRN IV Hypoglycemia 03/27/19 13:30 04/26/19 13:29 Heparin Sodium (Porcine) (Heparin 5000 units/ml) 5,000 units EVERY 12 HOURS SUBQ 03/27/19 21:00 04/26/19 20:59 03/28/19 08:50 Insulin Aspart (NovoLOG) BEFORE MEALS AND HS SUBQ 03/27/19 16:30 04/26/19 16:29 03/28/19 05:47 Iohexol (OMNIPAQUE-300 100ml) 100 ml NOW PRN INJ Radiology Procedure 03/27/19 10:45 03/29/19 10:43 Lorazepam (Ativan 2mg/ml 1ml) 0.5 mg Q4H PRN IV For Anxiety 03/27/19 13:30 04/03/19 13:29 Memantine (Namenda) 5 mg DAILY ORAL 03/28/19 09:00 04/27/19 08:59 03/28/19 08:49 Morphine Sulfate (Morphine Sulfate) 1 mg Q4H PRN IVP For Pain 03/27/19 13:30 04/03/19 13:29 Morphine Sulfate (Morphine Sulfate) 2 mg ONCE PRN IVP FOR HIDA SCAN 03/28/19 12:15 03/28/19 23:59 Ondansetron HCl (Zofran) 4 mg Q6H PRN IVP Nausea & Vomiting 03/27/19 13:30 04/26/19 13:29 Piperacillin Sod/ Tazobactam Sod 3.375 gm/Sodium Chloride 110 ml @ 27.5 mls/hr Q12H IVPB 03/28/19 12:00 04/04/19 11:59 03/28/19 12:28 Polyethylene Glycol (Miralax) 17 gm HSPRN PRN ORAL Constipation 03/27/19 13:30 04/26/19 13:29 Pravastatin Sodium (Pravachol) 20 mg BEDTIME ORAL 03/27/19 21:00 04/26/19 20:59 03/27/19 20:56 Zolpidem Tartrate (Ambien) 5 mg HSPRN PRN ORAL Insomnia 03/27/19 13:30 04/03/19 13:29 Assessment/Plan Problem List: (1) Cholecystitis ICD Codes: K81.9 - Cholecystitis, unspecified SNOMED: 99101449 (2) Cholelithiases ICD Codes: K80.20 - Calculus of gallbladder without cholecystitis without obstruction SNOMED: 726474255 (3) Hepatitis ICD Codes: K75.9 - Inflammatory liver disease, unspecified SNOMED: 790504635 (4) Failure to thrive in adult ICD Codes: R62.7 - Adult failure to thrive SNOMED: 673462778 (5) Diabetes mellitus ICD Codes: E11.9 - Type 2 diabetes mellitus without complications SNOMED: 23325717 Assessment/Plan: NPO symptomatic treatment sliding scale surgical note appreciated dvt prophylaxis. Dony Eli MD Mar 28, 2019 15:23
--- NOTE | 2019-03-28 15:45 | Consultation ---
History of Present Illness General Date patient seen: Mar 28, 2019 Chief Complaint: Generalized Weakness Referring physician: BRETT CAMARGO Reason for Consultation: ABDOMINAL PAIN Present Illness HPI Ms. Martinez is an 83 yo female with PMHx of DM, HTN and Asthma who presented to the ED on 03/27/19 with 4 days of abdominal pain. SHe denied fever n /v and SOB. In the ED she was noted to have WBCs of 12 and increase Liver enzymes and AlkP. CT abd showed cholelithiasis and wall thickening of the sigmoid colon. She is currently gettting a HIDA scan. ID was consulted for cholecystitis PMHx/PSHx DM HTN HLD Asthma Arthritis Total abdominal hysterectomy and oophorectomy. Bilateral cataract surgery. SocHx No E/T/D FamHx Unable to obtain as patient getting HIDA scan Allergies: Coded Allergies: No Known Allergies (Unverified , 04/03/17) Medication History Scheduled Albuterol Sulfate* (Proair Hfa*), 1 PUFF INH Q6H, (Reported) Amlodipine Besylate (Norvasc), 5 MG ORAL DAILY, (Reported) Aspirin (Aspirin EC), 81 MG ORAL DAILY, (Reported) Cephalexin* (Keflex*), 500 MG ORAL EVERY 12 HOURS Doxycycline Hyclate (Doxycycline Hyclate), 100 MG PO BID Famotidine (Famotidine), 20 MG ORAL DAILY, (Reported) Losartan Potassium (Losartan Potassium), 25 MG PO DAILY, (Reported) Memantine Hcl* (Namenda*), 7 MG ORAL DAILY, (Reported) Metformin Hcl* (Metformin Hcl*), Unknown Dose ORAL TWICE A DAY, (Reported) Montelukast Sodium* (Montelukast Sodium*), 10 MG ORAL DAILY, (Reported) Omeprazole (Omeprazole), Unknown Dose ORAL DAILY, (Reported) Pantoprazole* (Protonix*), 40 MG ORAL DAILY, (Reported) Pravastatin Sod* (Pravastatin Sod*), 20 MG ORAL BEDTIME, (Reported) Simvastatin (Zocor), 20 MG ORAL BEDTIME, (Reported) Scheduled PRN Albuterol Sulfate* (Albuterol Sulfate Hhn*), 3 ML INH Q4H PRN for Shortness of Breath, (Reported) Patient History Healthcare decision maker Resuscitation status Advanced Directive on File Review of Systems ROS Narrative Unable to obtain as patient getting HIDA scan Physical Exam Last 24 Hour Vital Signs Date Time Temp Pulse Resp B/P (MAP) Pulse Ox O2 Delivery O2 Flow Rate FiO2 03/28/19 12:00 98.2 73 12 151/62 (91) 99 03/28/19 09:00 Room Air 03/28/19 08:48 81 153/67 03/28/19 08:00 98.3 81 18 153/67 (95) 97 03/28/19 04:00 97.8 81 20 136/57 (83) 94 03/28/19 00:17 98.3 78 20 138/58 (84) 95 03/27/19 20:17 Room Air 03/27/19 19:54 98.9 90 20 135/71 (92) 96 03/27/19 17:53 Room Air 03/27/19 17:00 99.0 72 14 109/59 (76) 94 03/27/19 16:44 76 17 129/59 99 Room Air Intake and Output 03/27/19 03/28/19 19:00 07:00 Intake Total 1660 ml Balance 1660 ml Intake Oral 360 ml IV Total 1300 ml # Voids 1 2 Laboratory Tests Test 03/28/19 05:45 White Blood Count 7.0 K/UL (4.8-10.8) Red Blood Count 3.38 M/UL (4.20-5.40) L Hemoglobin 9.5 G/DL (12.0-16.0) L Hematocrit 29.6 % (37.0-47.0) L Mean Corpuscular Volume 88 FL (80-99) Mean Corpuscular Hemoglobin 28.2 PG (27.0-31.0) Mean Corpuscular Hemoglobin Concent 32.2 G/DL (32.0-36.0) Red Cell Distribution Width 12.5 % (11.6-14.8) Platelet Count 434 K/UL (150-450) Mean Platelet Volume 4.8 FL (6.5-10.1) L Neutrophils (%) (Auto) 67.1 % (45.0-75.0) Lymphocytes (%) (Auto) 18.6 % (20.0-45.0) L Monocytes (%) (Auto) 11.9 % (1.0-10.0) H Eosinophils (%) (Auto) 1.5 % (0.0-3.0) Basophils (%) (Auto) 1.0 % (0.0-2.0) Sodium Level 136 MMOL/L (136-145) Potassium Level 4.4 MMOL/L (3.5-5.1) Chloride Level 102 MMOL/L (98-107) Carbon Dioxide Level 29 MMOL/L (21-32) Anion Gap 5 mmol/L (5-15) Blood Urea Nitrogen 9 mg/dL (7-18) Creatinine 0.8 MG/DL (0.55-1.30) Estimat Glomerular Filtration Rate mL/min (>60) Glucose Level 146 MG/DL (74-106) H Hemoglobin A1c 7.0 % (4.3-6.0) H Calcium Level 9.3 MG/DL (8.5-10.1) Total Bilirubin 0.8 MG/DL (0.2-1.0) Aspartate Amino Transf (AST/SGOT) 486 U/L (15-37) H Alanine Aminotransferase (ALT/SGPT) 519 U/L (12-78) H Alkaline Phosphatase 341 U/L (46-116) H Total Protein 6.8 G/DL (6.4-8.2) Albumin 2.8 G/DL (3.4-5.0) L Globulin 4.0 g/dL Albumin/Globulin Ratio 0.7 (1.0-2.7) L Triglycerides Level 61 MG/DL (30-150) Cholesterol Level 148 MG/DL (< 200) LDL Cholesterol 63 mg/dL (<100) HDL Cholesterol 74 MG/DL (40-60) H Cholesterol/HDL Ratio 2.0 (3.3-4.4) L Thyroid Stimulating Hormone (TSH) 1.129 uiU/mL (0.358-3.740) Height (Feet): 4 Height (Inches): 3.00 Weight (Pounds): 95 Medications Current Medications Medications (Trade) Dose Ordered Sig/Lora Route PRN Reason Start Time Stop Time Status Last Admin Dose Admin Acetaminophen (Tylenol) 650 mg Q4H PRN ORAL fever 03/27/19 13:30 04/26/19 13:29 Amlodipine Besylate (Norvasc) 5 mg DAILY ORAL 03/28/19 09:00 04/27/19 08:59 03/28/19 08:48 Dextrose (Dextrose 50%) 25 ml Q30M PRN IV Hypoglycemia 03/27/19 13:30 04/26/19 13:29 Dextrose (Dextrose 50%) 50 ml Q30M PRN IV Hypoglycemia 03/27/19 13:30 04/26/19 13:29 Heparin Sodium (Porcine) (Heparin 5000 units/ml) 5,000 units EVERY 12 HOURS SUBQ 03/27/19 21:00 04/26/19 20:59 03/28/19 08:50 Insulin Aspart (NovoLOG) BEFORE MEALS AND HS SUBQ 03/27/19 16:30 04/26/19 16:29 03/28/19 05:47 Iohexol (OMNIPAQUE-300 100ml) 100 ml NOW PRN INJ Radiology Procedure 03/27/19 10:45 03/29/19 10:43 Lorazepam (Ativan 2mg/ml 1ml) 0.5 mg Q4H PRN IV For Anxiety 03/27/19 13:30 04/03/19 13:29 Memantine (Namenda) 5 mg DAILY ORAL 03/28/19 09:00 04/27/19 08:59 03/28/19 08:49 Morphine Sulfate (Morphine Sulfate) 1 mg Q4H PRN IVP For Pain 03/27/19 13:30 04/03/19 13:29 Morphine Sulfate (Morphine Sulfate) 2 mg ONCE PRN IVP FOR HIDA SCAN 03/28/19 12:15 03/28/19 23:59 Ondansetron HCl (Zofran) 4 mg Q6H PRN IVP Nausea & Vomiting 03/27/19 13:30 04/26/19 13:29 Piperacillin Sod/ Tazobactam Sod 3.375 gm/Sodium Chloride 110 ml @ 27.5 mls/hr Q12H IVPB 03/28/19 12:00 04/04/19 11:59 03/28/19 12:28 Polyethylene Glycol (Miralax) 17 gm HSPRN PRN ORAL Constipation 03/27/19 13:30 04/26/19 13:29 Pravastatin Sodium (Pravachol) 20 mg BEDTIME ORAL 03/27/19 21:00 04/26/19 20:59 03/27/19 20:56 Zolpidem Tartrate (Ambien) 5 mg HSPRN PRN ORAL Insomnia 03/27/19 13:30 04/03/19 13:29 Objective Narrative Unable to obtain as patient getting HIDA scan Assessment/Plan Assessment/Plan: 83 yo female with PMHx of DM, HTN and Asthma who presented to the ED on 03/27/19 with 4 days of abdominal pain. Probable cholecystitis CT abd 03/27/19 - Severe distention of the gallbladder, wall thickening, secondary to a large intraluminal gallstones. Cholecystitis is suspected. Correlate clinically. HIDA 03/28/19 - pend Leukocytosis - resolved No Fever DM HTN HLD Asthma Arthritis PLAN - Continue Zosyn #1 - f/u HIDA - f/u Surgery recs - Monitor CBC and temps Thank you for this consult. [facility] will continue to follow the patient with you during this hospitalization. Michael Alvarenga MD Mar 28, 2019 15:45
--- NOTE | 2019-03-28 16:22 | NUR ---
CASE MANAGEMENT:REVIEW 83 YR OLD MALE WALKED IN TO ER CC: WEAKNESS. DECREASED APPETITE. ABDOMINAL PAIN SI: FTT. HEPATITIS. DIVERTICULITIS 98.9 83 17 154/76 98% ON RA WBC+11.8 IS: 1L NS BOLUS IV PEPCID MYLANTA PO IV FLAGYL IV CIPRO CT ABD ABD US : TO MED/SURG 4 EAST INTERQUAL CRITERIA MET
--- NOTE | 2019-03-28 17:28 | NUR ---
NM Hepatobiliary (HIDA) scan complete and sent to [facility] for reading.
--- NOTE | 2019-03-28 19:14 | Diagnostic Imaging Report ---
Indication: Abdominal Pain Technique: 5.5 mCi of technetium 99 m-Choletec was injected intravenously. Planar imaging of the abdomen was then performed every 5 minutes up to 30 minutes and every 10 minutes up to one hour. Oblique views were also obtained. 2 mg of morphine sulfate given at 60 minutes. Findings: There is prompt uptake within the liver with good washout of radiotracer from the liver on subsequent imaging. There is excretion into the biliary ducts. There is uptake of the liver with excretion into the biliary ducts. There is tracer activity within small bowel indicating patency of the CBD. The gallbladder does not fill with tracer consistent with cystic duct obstruction. Recent CT demonstrated marked distention of the gallbladder due to stones. IMPRESSION: Cystic duct obstruction. Findings consistent with acute cholecystitis
--- NOTE | 2019-03-28 19:26 | Internal Med Progress Note ---
Subjective Physician Name Logan Camargo Attending Physician Logan Camargo MD Current Medications Medications (Trade) Dose Ordered Sig/Lora Route PRN Reason Start Time Stop Time Status Last Admin Dose Admin Acetaminophen (Tylenol) 650 mg Q4H PRN ORAL fever 03/27/19 13:30 04/26/19 13:29 Amlodipine Besylate (Norvasc) 5 mg DAILY ORAL 03/28/19 09:00 04/27/19 08:59 03/28/19 08:48 Dextrose (Dextrose 50%) 25 ml Q30M PRN IV Hypoglycemia 03/27/19 13:30 04/26/19 13:29 Dextrose (Dextrose 50%) 50 ml Q30M PRN IV Hypoglycemia 03/27/19 13:30 04/26/19 13:29 Heparin Sodium (Porcine) (Heparin 5000 units/ml) 5,000 units EVERY 12 HOURS SUBQ 03/27/19 21:00 04/26/19 20:59 03/28/19 08:50 Insulin Aspart (NovoLOG) BEFORE MEALS AND HS SUBQ 03/27/19 16:30 04/26/19 16:29 03/28/19 05:47 Iohexol (OMNIPAQUE-300 100ml) 100 ml NOW PRN INJ Radiology Procedure 03/27/19 10:45 03/29/19 10:43 Lorazepam (Ativan 2mg/ml 1ml) 0.5 mg Q4H PRN IV For Anxiety 03/27/19 13:30 04/03/19 13:29 Memantine (Namenda) 5 mg DAILY ORAL 03/28/19 09:00 04/27/19 08:59 03/28/19 08:49 Morphine Sulfate (Morphine Sulfate) 1 mg Q4H PRN IVP For Pain 03/27/19 13:30 04/03/19 13:29 Morphine Sulfate (Morphine Sulfate) 2 mg ONCE PRN IVP FOR HIDA SCAN 03/28/19 12:15 03/28/19 23:59 03/28/19 16:23 Ondansetron HCl (Zofran) 4 mg Q6H PRN IVP Nausea & Vomiting 03/27/19 13:30 04/26/19 13:29 Pantoprazole (Protonix) 40 mg EVERY 12 HOURS ORAL 03/28/19 21:00 04/27/19 20:59 Piperacillin Sod/ Tazobactam Sod 3.375 gm/Sodium Chloride 110 ml @ 27.5 mls/hr Q12H IVPB 03/28/19 12:00 04/04/19 11:59 03/28/19 12:28 Polyethylene Glycol (Miralax) 17 gm HSPRN PRN ORAL Constipation 03/27/19 13:30 04/26/19 13:29 Pravastatin Sodium (Pravachol) 20 mg BEDTIME ORAL 03/27/19 21:00 04/26/19 20:59 03/27/19 20:56 Zolpidem Tartrate (Ambien) 5 mg HSPRN PRN ORAL Insomnia 03/27/19 13:30 04/03/19 13:29 Allergies: Coded Allergies: No Known Allergies (Unverified , 04/03/17) Subjective Awake, alert, responsive, denies any nausea or vomiting, complain of epigastric pain. Objective Last Vital Signs Date Time Temp Pulse Resp B/P (MAP) Pulse Ox O2 Delivery O2 Flow Rate FiO2 03/28/19 12:00 98.2 73 12 151/62 (91) 99 03/28/19 09:00 Room Air Laboratory Tests Test 03/28/19 05:45 White Blood Count 7.0 K/UL (4.8-10.8) Red Blood Count 3.38 M/UL (4.20-5.40) L Hemoglobin 9.5 G/DL (12.0-16.0) L Hematocrit 29.6 % (37.0-47.0) L Mean Corpuscular Volume 88 FL (80-99) Mean Corpuscular Hemoglobin 28.2 PG (27.0-31.0) Mean Corpuscular Hemoglobin Concent 32.2 G/DL (32.0-36.0) Red Cell Distribution Width 12.5 % (11.6-14.8) Platelet Count 434 K/UL (150-450) Mean Platelet Volume 4.8 FL (6.5-10.1) L Neutrophils (%) (Auto) 67.1 % (45.0-75.0) Lymphocytes (%) (Auto) 18.6 % (20.0-45.0) L Monocytes (%) (Auto) 11.9 % (1.0-10.0) H Eosinophils (%) (Auto) 1.5 % (0.0-3.0) Basophils (%) (Auto) 1.0 % (0.0-2.0) Sodium Level 136 MMOL/L (136-145) Potassium Level 4.4 MMOL/L (3.5-5.1) Chloride Level 102 MMOL/L (98-107) Carbon Dioxide Level 29 MMOL/L (21-32) Anion Gap 5 mmol/L (5-15) Blood Urea Nitrogen 9 mg/dL (7-18) Creatinine 0.8 MG/DL (0.55-1.30) Estimat Glomerular Filtration Rate mL/min (>60) Glucose Level 146 MG/DL (74-106) H Hemoglobin A1c 7.0 % (4.3-6.0) H Calcium Level 9.3 MG/DL (8.5-10.1) Total Bilirubin 0.8 MG/DL (0.2-1.0) Aspartate Amino Transf (AST/SGOT) 486 U/L (15-37) H Alanine Aminotransferase (ALT/SGPT) 519 U/L (12-78) H Alkaline Phosphatase 341 U/L (46-116) H Total Protein 6.8 G/DL (6.4-8.2) Albumin 2.8 G/DL (3.4-5.0) L Globulin 4.0 g/dL Albumin/Globulin Ratio 0.7 (1.0-2.7) L Triglycerides Level 61 MG/DL (30-150) Cholesterol Level 148 MG/DL (< 200) LDL Cholesterol 63 mg/dL (<100) HDL Cholesterol 74 MG/DL (40-60) H Cholesterol/HDL Ratio 2.0 (3.3-4.4) L Thyroid Stimulating Hormone (TSH) 1.129 uiU/mL (0.358-3.740) Intake and Output 03/27/19 03/28/19 19:00 07:00 Intake Total 1660 ml Balance 1660 ml Intake Oral 360 ml IV Total 1300 ml # Voids 1 2 Objective General: No acute distress, awake and alert HEENT: NCAT, sclera anicteric, PERRL, EOMI. Neck: Supple, no significant jugular venous distention, Lungs: Good inspiratory effort, clear to auscultation bilaterally, no Wheeze or Rales. Heart: Regular rate and rhythm, normal S1/S2, no murmurs/gallops Abdomen: soft, Epigastric tender, nondistended. Normoactive bowel sounds. / Rectal: Refused and deferred. Extremities: No Cyanosis , clubbing or edema. Neuro: A&O x 3, Able to move all extremities Skin: warm, no rashes or lesions Psych: Normal mood and affect Assessment/Plan Assessment/Plan ASSESSMENT: This is an 83-year-old female with: 1. Right upper quadrant pain. 2. Acute cholecystitis. 3. Cholelithiasis. 4. Elevated liver function tests. 5. Diverticulitis. 6. Diabetes type 2. 7. Hypertension. 8. Hypercholesterolemia. 9. Asthma. TREATMENT: 1. 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 A Gastroenterology consultation has been obtained with Dr. Panda Friedman. 2. Acute cholecystitis/cholelithiasis. A General Surgery consultation has been obtained with Dr. Perez. 3. Elevated liver function tests. Differential includes acute hepatitis secondary to cholelithiasis versus chronic hepatitis. A hepatitis panel is pending. As above, a Gastroenterology consultation has been obtained with Dr. Panda Friedman. 4. Diabetes type 2. The patient has been placed on NovoLog sliding scale. 5. Hypertension. The patient is currently hypotensive. Hold amlodipine above. 6. Hypercholesterolemia. Continue simvastatin 20 mg p.o. daily. 7. Asthma. 8. Anemia. Follow-up with the HIDA scan results, discussed with the surgery Dr. Perez over the phone. Full code, DVT prophylaxis with SCD Abx: Logan Auguste MD Mar 28, 2019 19:26
--- NOTE | 2019-03-28 19:29 | NUR ---
HAND-OFF: Report given to Mikhail LATHAM RN.
[2019-03-28 20:00] VITALS: BP 146/99
--- NOTE | 2019-03-28 20:33 | NUR ---
NURSE NOTES: RECEIVED PT FROM DIMITRIOS XIE. PT IS ASLEEP, ON ROOM AIR, NO ACUTE DISTRESS NOTED. CANE NOTED AT BEDSIDE. IV ON LEFT AC 20G IS INTACT AND PATENT. BED IS LOCKED AND LOW, BED ALARMS ACTIVE, SIDE RAILS UP X2 AND CALL LIGHT IS WITHIN REACH. WILL CONTINUE TO MONITOR.
[2019-03-29] VITALS: BP 131/65
[2019-03-29] MEDS: Piperacillin/Tazobactam 3.375 GM in NS 110 ML IVPB SCH ×2 (00:15→12:17)
[2019-03-29 04:00] VITALS: BP 136/69
--- NOTE | 2019-03-29 05:00 | NUR ---
NURSE NOTES: COLLECTED STOOL FOR OB STOOL. SENT DOWN TO LAB.
[2019-03-29 06:29] LABS: BASOPHILS % (AUTO) 0.9 % (0.0-2.0); EOSINOPHILS % (AUTO) 1.9 % (0.0-3.0); HEMATOCRIT 28.8 % (37.0-47.0); HEMOGLOBIN 9.4 G/DL (12.0-16.0); LYMPHOCYTES % (AUTO) 15.6 % (20.0-45.0); MEAN CORPUSCULAR VOLUME 88 FL (80-99); NEUTROPHILS % (AUTO) 70.6 % (45.0-75.0); PLATELET COUNT 415 K/UL (150-450); RED BLOOD COUNT 3.29 M/UL (4.20-5.40); RED CELL DISTRIBUTION WIDTH 12.3 % (11.6-14.8); WHITE BLOOD COUNT 8.2 K/UL (4.8-10.8)
[2019-03-29] MEDS: NovoLOG Insulin Flexpen SUBQ SCH ×4 (06:30→20:51)
[2019-03-29 06:34] LABS: INR 0.9 (0.9-1.1)
--- NOTE | 2019-03-29 07:05 | NUR ---
NURSE NOTES: Received report from Onelia, RN. Pt in bed, awake, talkative, no complaints of pain, no apparent distress noted, A/Ox4, Portuguese speaking, discussed plan of care with pt, bed in lowest position, call light within reach.
[2019-03-29 07:13] LABS: ALANINE AMINOTRANSFERASE 378 U/L (12-78); ALBUMIN 2.5 G/DL (3.4-5.0); ALBUMIN/GLOBULIN RATIO 0.6 (1.0-2.7); ALKALINE PHOSPHATASE 338 U/L (46-116); ANION GAP 6 mmol/L (5-15); ASPARTATE AMINO TRANSFERASE 196 U/L (15-37); BILIRUBIN,TOTAL 0.4 MG/DL (0.2-1.0); BLOOD UREA NITROGEN 11 mg/dL (7-18); CALCIUM 8.8 MG/DL (8.5-10.1); CARBON DIOXIDE 29 MMOL/L (21-32); CHLORIDE 99 MMOL/L (98-107); CREATININE 0.7 MG/DL (0.55-1.30); FERRITIN 34 NG/ML (8-388); POTASSIUM 3.4 MMOL/L (3.5-5.1); SODIUM 134 MMOL/L (136-145)
--- NOTE | 2019-03-29 07:26 | NUR ---
HAND-OFF: Report given to DIMITRIOS Caldwell. Pt is in stable condition.
[2019-03-29 07:38] LABS: % IRON SATURATION 26 % (15-50); IRON 53 ug/dL (50-175); TOTAL IRON BINDING CAPACITY 206 ug/dL (250-450)
[2019-03-29 07:53] VITALS: BP 130/73
[2019-03-29] MEDS: Memantine 5 MG TAB ORAL SCH (08:55)
[2019-03-29] MEDS: Heparin 5000 units/ml inj SUBQ SCH ×2 (09:00→21:08)
--- NOTE | 2019-03-29 09:01 | Surgery Progress Note ---
Surgery Progress Note Subjective Additional Comments afebrile, HD stable, labs improved, lfts improved HIDA results noted and very concerning. CT demonstrates a 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 There does appear to be some radiotracer filling the extremely distorted gallbladder, but this could be from the bowel connection, rather than the cystic duct. Objective Last 24 Hour Vital Signs Date Time Temp Pulse Resp B/P (MAP) Pulse Ox O2 Delivery O2 Flow Rate FiO2 03/29/19 07:54 Room Air 03/29/19 07:53 98.6 86 19 130/73 (92) 96 03/29/19 04:00 98.3 89 20 136/69 (91) 95 03/29/19 00:00 98.5 85 20 131/65 (87) 03/28/19 21:00 Room Air 03/28/19 20:00 97.3 86 20 146/99 (115) 98 03/28/19 12:00 98.2 73 12 151/62 (91) 99 03/28/19 09:00 Room Air I&O Intake and Output 03/28/19 03/29/19 18:59 06:59 Intake Total 527.5 ml 55.0 ml Balance 527.5 ml 55.0 ml IV Total 27.5 ml 55.0 ml Other 500 ml # Voids 2 # Bowel Movements 1 Laboratory Tests Test 03/29/19 04:00 03/29/19 05:35 Stool Occult Blood Pending White Blood Count 8.2 K/UL (4.8-10.8) Red Blood Count 3.29 M/UL (4.20-5.40) L Hemoglobin 9.4 G/DL (12.0-16.0) L Hematocrit 28.8 % (37.0-47.0) L Mean Corpuscular Volume 88 FL (80-99) Mean Corpuscular Hemoglobin 28.5 PG (27.0-31.0) Mean Corpuscular Hemoglobin Concent 32.5 G/DL (32.0-36.0) Red Cell Distribution Width 12.3 % (11.6-14.8) Platelet Count 415 K/UL (150-450) Mean Platelet Volume 4.9 FL (6.5-10.1) L Neutrophils (%) (Auto) 70.6 % (45.0-75.0) Lymphocytes (%) (Auto) 15.6 % (20.0-45.0) L Monocytes (%) (Auto) 11.0 % (1.0-10.0) H Eosinophils (%) (Auto) 1.9 % (0.0-3.0) Basophils (%) (Auto) 0.9 % (0.0-2.0) Reticulocyte Count Pending Prothrombin Time 10.0 SEC (9.30-11.50) Prothromb Time International Ratio 0.9 (0.9-1.1) Activated Partial Thromboplast Time 27 SEC (23-33) Sodium Level 134 MMOL/L (136-145) L Potassium Level 3.4 MMOL/L (3.5-5.1) L Chloride Level 99 MMOL/L (98-107) Carbon Dioxide Level 29 MMOL/L (21-32) Anion Gap 6 mmol/L (5-15) Blood Urea Nitrogen 11 mg/dL (7-18) Creatinine 0.7 MG/DL (0.55-1.30) Estimat Glomerular Filtration Rate mL/min (>60) Glucose Level 122 MG/DL (74-106) H Calcium Level 8.8 MG/DL (8.5-10.1) Iron Level 53 ug/dL (50-175) Total Iron Binding Capacity 206 ug/dL (250-450) L Percent Iron Saturation 26 % (15-50) Unsaturated Iron Binding 153 ug/dL (112-346) Ferritin 34 NG/ML (8-388) Total Bilirubin 0.4 MG/DL (0.2-1.0) Aspartate Amino Transf (AST/SGOT) 196 U/L (15-37) H Alanine Aminotransferase (ALT/SGPT) 378 U/L (12-78) H Alkaline Phosphatase 338 U/L (46-116) H Total Protein 6.5 G/DL (6.4-8.2) Albumin 2.5 G/DL (3.4-5.0) L Globulin 4.0 g/dL Albumin/Globulin Ratio 0.6 (1.0-2.7) L Vitamin B12 Level 989 PG/ML (193-986) H Folate 24.4 NG/ML (8.6-58.9) Thyroid Stimulating Hormone (TSH) 0.554 uiU/mL (0.358-3.740) Free Thyroxine 1.49 NG/DL (0.76-1.46) H Hepatitis A IgM Antibody Pending Hepatitis B Surface Antigen Pending Hepatitis B Core IgM Antibody Pending Hepatitis C Antibody Pending Plan Problems: (1) Cholecystitis Assessment & Plan: Improving labs improved pain improved diet cont with medical management HIDA results concerning CT demonstrates a 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 There does appear to be some radiotracer filling the extremely distorted gallbladder, but this could be from the bowel connection, rather than the cystic duct. will need to review studies with radiologist first when they are available. she has giant stones, choleduo fistula, and current presentation.once radiology reviewed will formulate a care plan for surgical intervention Findings: The gallbladder is severely distended with wall thickening secondary to very large stones within the lumen. For example one of the stones measures about 6 x 3 cm. There is another stone and measures 2.7 cm. Cholecystitis is suspected. Biliary ducts are mildly prominent. The sigmoid colon appears abnormal. There are diverticula with ill-definition of the wall and slight thickening of the wall. Diverticulitis is not excluded and should be considered as well. There is an umbilical hernia containing fat. Bowel gas pattern is nonobstructive appendix is probably seen partially and unremarkable as such. The aorta and iliac arteries are tortuous moderately calcified. Bladder is nondistended. There is no ascites. There is no hydronephrosis, adrenal mass or splenomegaly. Pancreas is unremarkable. There is a hiatal hernia. Minimal streaky atelectasis versus scarring at the lung bases noted. There is narrowing of intervertebral discs and accompanying endplate osteophyte formation. Hypertrophied facet joints also demonstrated. Uterus is not seen. IMPRESSION: Severe distention of the gallbladder, wall thickening, secondary to a large intraluminal gallstones. Cholecystitis is suspected. Correlate clinically. Suspected diverticulitis in the sigmoid region with wall thickening and mild perisigmoid inflammation with multiple diverticula in the sigmoid colon and elsewhere in the colon. No abscess. 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 Sonographic Florez's is negative per technologist. The liver is unremarkable. Doppler interrogation of the main portal vein shows patency with hepatopedal, monophasic flow. There is no biliary ductal dilatation identified. The demonstrated part of the pancreas, aorta and IVC show no definite abnormalities. Both kidneys appear unremarkable. There is no hydronephrosis. IMPRESSION: Cholelithiasis (3) Diverticulitis Assessment & Plan: medical management (4) Elevated liver enzymes Assessment & Plan: hep panel labs trend will monitor (5) Failure to thrive in adult Assessment & Plan: diet as tolerated Alexandro Perez Mar 29, 2019 09:00
--- NOTE | 2019-03-29 09:59 | Pulmonology Progress Note ---
Assessment/Plan Problems: (1) duodeno-cholecytic fistula (2) Cholecystitis (3) Cholelithiases (4) Hepatitis (5) Failure to thrive in adult (6) Diabetes mellitus (7) Diverticulitis Assessment/Plan all noted HIDA scan noted, continue abx check cultures f/u surgical recommendations sliding scale Subjective ROS Limited/Unobtainable: No Constitutional: Reports: no symptoms HEENT: Repors: no symptoms Respiratory: Reports: no symptoms Allergies: Coded Allergies: No Known Allergies (Unverified , 04/03/17) Objective Last 24 Hour Vital Signs Date Time Temp Pulse Resp B/P (MAP) Pulse Ox O2 Delivery O2 Flow Rate FiO2 03/29/19 08:55 86 130/73 03/29/19 07:54 Room Air 03/29/19 07:53 98.6 86 19 130/73 (92) 96 03/29/19 04:00 98.3 89 20 136/69 (91) 95 03/29/19 00:00 98.5 85 20 131/65 (87) 03/28/19 21:00 Room Air 03/28/19 20:00 97.3 86 20 146/99 (115) 98 03/28/19 12:00 98.2 73 12 151/62 (91) 99 Intake and Output 03/28/19 03/29/19 18:59 06:59 Intake Total 527.5 ml 55.0 ml Balance 527.5 ml 55.0 ml IV Total 27.5 ml 55.0 ml Other 500 ml # Voids 2 # Bowel Movements 1 Objective General Appearance: WD/WN HEENT: normocephalic, atraumatic Respiratory/Chest: chest wall non-tender, lungs clear Breasts: no masses Cardiovascular: normal peripheral pulses Abdomen: normal bowel sounds, soft, non tender Genitourinary: normal external genitalia Extremities: no clubbing Neurologic/Psychiatric: 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 grossly normal Lymphatic: no neck adenopathy Microbiology Date/Time Source Procedure Growth Status 03/27/19 11:15 Blood Blood Culture - Preliminary NO GROWTH AFTER 24 HOURS Resulted 03/27/19 11:00 Blood Blood Culture - Preliminary NO GROWTH AFTER 24 HOURS Resulted Laboratory Tests 03/29/19 04:00: Stool Occult Blood Positive 03/29/19 05:35: White Blood Count 8.2, Red Blood Count 3.29L, Hemoglobin 9.4L, Hematocrit 28.8L , Mean Corpuscular Volume 88, Mean Corpuscular Hemoglobin 28.5, Mean Corpuscular Hemoglobin Concent 32.5, Red Cell Distribution Width 12.3, Platelet Count 415, Mean Platelet Volume 4.9L, Neutrophils (%) (Auto) 70.6, Lymphocytes ( %) (Auto) 15.6L, Monocytes (%) (Auto) 11.0H, Eosinophils (%) (Auto) 1.9, Basophils (%) (Auto) 0.9, Reticulocyte Count [Pending], Prothrombin Time 10.0, Prothromb Time International Ratio 0.9, Activated Partial Thromboplast Time 27, Sodium Level 134L, Potassium Level 3.4L, Chloride Level 99, Carbon Dioxide Level 29, Anion Gap 6, Blood Urea Nitrogen 11, Creatinine 0.7, Estimat Glomerular Filtration Rate , Glucose Level 122H, Calcium Level 8.8, Iron Level 53, Total Iron Binding Capacity 206L, Percent Iron Saturation 26, Unsaturated Iron Binding 153, Ferritin 34, Total Bilirubin 0.4, Aspartate Amino Transf (AST/ SGOT) 196H, Alanine Aminotransferase (ALT/SGPT) 378H, Alkaline Phosphatase 338H , Total Protein 6.5, Albumin 2.5L, Globulin 4.0, Albumin/Globulin Ratio 0.6L, Vitamin B12 Level 989H, Folate 24.4, Thyroid Stimulating Hormone (TSH) 0.554, Free Thyroxine 1.49H, Hepatitis A IgM Antibody [Pending], Hepatitis B Surface Antigen [Pending], Hepatitis B Core IgM Antibody [Pending], Hepatitis C Antibody [Pending] Current Medications Medications (Trade) Dose Ordered Sig/Lora Route PRN Reason Start Time Stop Time Status Last Admin Dose Admin Acetaminophen (Tylenol) 650 mg Q4H PRN ORAL fever 03/27/19 13:30 04/26/19 13:29 Amlodipine Besylate (Norvasc) 5 mg DAILY ORAL 03/28/19 09:00 04/27/19 08:59 03/29/19 08:55 Dextrose (Dextrose 50%) 25 ml Q30M PRN IV Hypoglycemia 03/27/19 13:30 04/26/19 13:29 Dextrose (Dextrose 50%) 50 ml Q30M PRN IV Hypoglycemia 03/27/19 13:30 04/26/19 13:29 Heparin Sodium (Porcine) (Heparin 5000 units/ml) 5,000 units EVERY 12 HOURS SUBQ 03/27/19 21:00 04/26/19 20:59 03/29/19 09:00 Insulin Aspart (NovoLOG) BEFORE MEALS AND HS SUBQ 03/27/19 16:30 04/26/19 16:29 03/28/19 05:47 Iohexol (OMNIPAQUE-300 100ml) 100 ml NOW PRN INJ Radiology Procedure 03/27/19 10:45 03/29/19 10:43 Lorazepam (Ativan 2mg/ml 1ml) 0.5 mg Q4H PRN IV For Anxiety 03/27/19 13:30 04/03/19 13:29 Memantine (Namenda) 5 mg DAILY ORAL 03/28/19 09:00 04/27/19 08:59 03/29/19 08:55 Morphine Sulfate (Morphine Sulfate) 1 mg Q4H PRN IVP For Pain 03/27/19 13:30 04/03/19 13:29 Ondansetron HCl (Zofran) 4 mg Q6H PRN IVP Nausea & Vomiting 03/27/19 13:30 04/26/19 13:29 Pantoprazole (Protonix) 40 mg EVERY 12 HOURS ORAL 03/28/19 21:00 04/27/19 20:59 03/29/19 08:55 Piperacillin Sod/ Tazobactam Sod 3.375 gm/Sodium Chloride 110 ml @ 27.5 mls/hr Q12H IVPB 03/28/19 12:00 04/04/19 11:59 03/29/19 00:15 Polyethylene Glycol (Miralax) 17 gm HSPRN PRN ORAL Constipation 03/27/19 13:30 04/26/19 13:29 Pravastatin Sodium (Pravachol) 20 mg BEDTIME ORAL 03/27/19 21:00 04/26/19 20:59 03/28/19 21:01 Zolpidem Tartrate (Ambien) 5 mg HSPRN PRN ORAL Insomnia 03/27/19 13:30 04/03/19 13:29 Dony Eli MD Mar 29, 2019 09:59
--- NOTE | 2019-03-29 10:06 | NUR ---
NURSE NOTES: Left message for Dr. Angelic cabrera K 3.4 and Potassium 134 Addendum: 03/29/19 at 1042 by JAGDEEP BOOTH RN NURSE NOTES: Notified Dr. Raman Reynolds 3.4 na 134
[2019-03-29 12:00] VITALS: BP 126/51
--- NOTE | 2019-03-29 14:13 | Internal Med Progress Note ---
Subjective Date of Service: Mar 29, 2019 Physician Name AtwoodIsaías Attending Physician Logan Camargo MD Current Medications Medications (Trade) Dose Ordered Sig/Lora Route PRN Reason Start Time Stop Time Status Last Admin Dose Admin Acetaminophen (Tylenol) 650 mg Q4H PRN ORAL fever 03/27/19 13:30 04/26/19 13:29 Amlodipine Besylate (Norvasc) 5 mg DAILY ORAL 03/28/19 09:00 04/27/19 08:59 03/29/19 08:55 Dextrose (Dextrose 50%) 25 ml Q30M PRN IV Hypoglycemia 03/27/19 13:30 04/26/19 13:29 Dextrose (Dextrose 50%) 50 ml Q30M PRN IV Hypoglycemia 03/27/19 13:30 04/26/19 13:29 Heparin Sodium (Porcine) (Heparin 5000 units/ml) 5,000 units EVERY 12 HOURS SUBQ 03/27/19 21:00 04/26/19 20:59 03/29/19 09:00 Insulin Aspart (NovoLOG) BEFORE MEALS AND HS SUBQ 03/27/19 16:30 04/26/19 16:29 03/29/19 12:17 Lorazepam (Ativan 2mg/ml 1ml) 0.5 mg Q4H PRN IV For Anxiety 03/27/19 13:30 04/03/19 13:29 Memantine (Namenda) 5 mg DAILY ORAL 03/28/19 09:00 04/27/19 08:59 03/29/19 08:55 Morphine Sulfate (Morphine Sulfate) 1 mg Q4H PRN IVP For Pain 03/27/19 13:30 04/03/19 13:29 Ondansetron HCl (Zofran) 4 mg Q6H PRN IVP Nausea & Vomiting 03/27/19 13:30 04/26/19 13:29 Pantoprazole (Protonix) 40 mg EVERY 12 HOURS ORAL 03/28/19 21:00 04/27/19 20:59 03/29/19 08:55 Piperacillin Sod/ Tazobactam Sod 3.375 gm/Sodium Chloride 110 ml @ 27.5 mls/hr Q12H IVPB 03/28/19 12:00 04/04/19 11:59 03/29/19 12:17 Polyethylene Glycol (Miralax) 17 gm HSPRN PRN ORAL Constipation 03/27/19 13:30 04/26/19 13:29 Potassium Chloride (K-Dur) 40 meq ONCE ORAL 03/29/19 13:02 03/29/19 14:30 03/29/19 13:32 Pravastatin Sodium (Pravachol) 20 mg BEDTIME ORAL 03/27/19 21:00 04/26/19 20:59 03/28/19 21:01 Zolpidem Tartrate (Ambien) 5 mg HSPRN PRN ORAL Insomnia 03/27/19 13:30 04/03/19 13:29 Allergies: Coded Allergies: No Known Allergies (Unverified , 04/03/17) ROS Limited/Unobtainable: No Constitutional: Reports: no symptoms HEENT: Reports: no symptoms Cardiovascular: Reports: no symptoms Respiratory: Reports: no symptoms Gastrointestinal/Abdominal: Reports: abdominal pain Genitourinary: Reports: no symptoms Neurologic/Psychiatric: Reports: no symptoms Subjective 83 YO F admitted with right upper quadrant pain. Now acute cholecystitis and cholelithiasis. Cover for Int Med-Dr Camargo Objective Last Vital Signs Date Time Temp Pulse Resp B/P (MAP) Pulse Ox O2 Delivery O2 Flow Rate FiO2 03/29/19 12:00 98.7 81 18 126/51 (76) 96 03/29/19 07:54 Room Air Laboratory Tests Test 03/29/19 04:00 03/29/19 05:35 Stool Occult Blood Positive (NEGATIVE) White Blood Count 8.2 K/UL (4.8-10.8) Red Blood Count 3.29 M/UL (4.20-5.40) L Hemoglobin 9.4 G/DL (12.0-16.0) L Hematocrit 28.8 % (37.0-47.0) L Mean Corpuscular Volume 88 FL (80-99) Mean Corpuscular Hemoglobin 28.5 PG (27.0-31.0) Mean Corpuscular Hemoglobin Concent 32.5 G/DL (32.0-36.0) Red Cell Distribution Width 12.3 % (11.6-14.8) Platelet Count 415 K/UL (150-450) Mean Platelet Volume 4.9 FL (6.5-10.1) L Neutrophils (%) (Auto) 70.6 % (45.0-75.0) Lymphocytes (%) (Auto) 15.6 % (20.0-45.0) L Monocytes (%) (Auto) 11.0 % (1.0-10.0) H Eosinophils (%) (Auto) 1.9 % (0.0-3.0) Basophils (%) (Auto) 0.9 % (0.0-2.0) Reticulocyte Count 0.6 % (0.5-2.0) Prothrombin Time 10.0 SEC (9.30-11.50) Prothromb Time International Ratio 0.9 (0.9-1.1) Activated Partial Thromboplast Time 27 SEC (23-33) Sodium Level 134 MMOL/L (136-145) L Potassium Level 3.4 MMOL/L (3.5-5.1) L Chloride Level 99 MMOL/L (98-107) Carbon Dioxide Level 29 MMOL/L (21-32) Anion Gap 6 mmol/L (5-15) Blood Urea Nitrogen 11 mg/dL (7-18) Creatinine 0.7 MG/DL (0.55-1.30) Estimat Glomerular Filtration Rate mL/min (>60) Glucose Level 122 MG/DL (74-106) H Calcium Level 8.8 MG/DL (8.5-10.1) Iron Level 53 ug/dL (50-175) Total Iron Binding Capacity 206 ug/dL (250-450) L Percent Iron Saturation 26 % (15-50) Unsaturated Iron Binding 153 ug/dL (112-346) Ferritin 34 NG/ML (8-388) Total Bilirubin 0.4 MG/DL (0.2-1.0) Aspartate Amino Transf (AST/SGOT) 196 U/L (15-37) H Alanine Aminotransferase (ALT/SGPT) 378 U/L (12-78) H Alkaline Phosphatase 338 U/L (46-116) H Total Protein 6.5 G/DL (6.4-8.2) Albumin 2.5 G/DL (3.4-5.0) L Globulin 4.0 g/dL Albumin/Globulin Ratio 0.6 (1.0-2.7) L Vitamin B12 Level 989 PG/ML (193-986) H Folate 24.4 NG/ML (8.6-58.9) Thyroid Stimulating Hormone (TSH) 0.554 uiU/mL (0.358-3.740) Free Thyroxine 1.49 NG/DL (0.76-1.46) H Hepatitis A IgM Antibody Pending Hepatitis B Surface Antigen Pending Hepatitis B Core IgM Antibody Pending Hepatitis C Antibody Pending Microbiology Date/Time Source Procedure Growth Status 03/27/19 11:15 Blood Blood Culture - Preliminary NO GROWTH AFTER 24 HOURS Resulted 03/27/19 11:00 Blood Blood Culture - Preliminary NO GROWTH AFTER 24 HOURS Resulted Intake and Output 03/28/19 03/29/19 19:00 07:00 Intake Total 527.5 ml 55.0 ml Balance 527.5 ml 55.0 ml IV Total 27.5 ml 55.0 ml Other 500 ml # Voids 2 # Bowel Movements 1 Objective PHYSICAL EXAMINATION: GENERAL: The patient is a well-developed and well-nourished female, in no apparent distress. HEENT: Eyes, pupils are equal and responsive to light and accommodation. Extraocular movements are intact. NECK: Supple without lymphadenopathy. CHEST: Lungs are clear to auscultation bilaterally without wheezes or rales. CARDIOVASCULAR: Regular rhythm and rate. S1, S2 normal without murmurs, rubs, or gallops. ABDOMEN: Soft, nondistended with decreased bowel sounds. There is pain to palpation to right upper quadrant. No evidence of rebound or guarding noted. EXTREMITIES: Negative for clubbing, cyanosis, or edema. RECTAL/GENITAL: Not performed. NEUROLOGIC: Cranial nerves II through XII are grossly intact without focal deficits. Motor strength is 5/5 bilaterally. Deep tendon reflexes are 2+ plantar. Assessment/Plan Assessment/Plan ASSESSMENT: This is an 83-year-old female with: 1. Right upper quadrant pain. 2. Acute cholecystitis. 3. Cholelithiasis. 4. Elevated liver function tests. 5. Diverticulitis. 6. Diabetes type 2. 7. Hypertension. 8. Hypercholesterolemia. 9. Asthma. 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 Right upper quadrant pain/diverticulitis. A Gastroenterology consultation has been obtained with Dr. Panda Friedman. 2. Acute cholecystitis/cholelithiasis. 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 A General Surgery consultation has been obtained with Dr. Perez. The patient has been started empirically on intravenous ciprofloxacin and metronidazole. Surgery date is pending 3. Elevated liver function tests. Differential includes acute hepatitis secondary to cholelithiasis versus chronic hepatitis. A hepatitis panel is pending. As above, a Gastroenterology consultation has been obtained with Dr. Panda Friedman. 4. Diabetes type 2. The patient has been placed on NovoLog sliding scale. 5. Hypertension. The patient is currently hypotensive. Hold amlodipine above. 6. Hypercholesterolemia. Continue simvastatin 20 mg p.o. daily. 7. Asthma. Isaías Atwood MD Mar 29, 2019 14:13
[2019-03-29 16:00] VITALS: BP 121/58
[2019-03-29 16:37] LABS: BASOPHILS % (AUTO) 1.3 % (0.0-2.0); EOSINOPHILS % (AUTO) 1.2 % (0.0-3.0); HEMATOCRIT 27.5 % (37.0-47.0); HEMOGLOBIN 8.9 G/DL (12.0-16.0); LYMPHOCYTES % (AUTO) 22.2 % (20.0-45.0); MEAN CORPUSCULAR VOLUME 88 FL (80-99); MONOCYTES % (AUTO) 13.6 % (1.0-10.0); NEUTROPHILS % (AUTO) 61.7 % (45.0-75.0); PLATELET COUNT 372 K/UL (150-450); RED BLOOD COUNT 3.11 M/UL (4.20-5.40); RED CELL DISTRIBUTION WIDTH 11.7 % (11.6-14.8); WHITE BLOOD COUNT 7.1 K/UL (4.8-10.8)
--- NOTE | 2019-03-29 19:26 | NUR ---
HAND-OFF: Report given to DIMITRIOS Desai.
--- NOTE | 2019-03-29 19:40 | NUR ---
NURSE NOTES: Received report form DIMITRIOS Caldwell. Patient A&Ox4, Yoruba speaking. On room air, no signs of distress or labored breathing. IV intact, patent, and saline locked. Bed in lowest position with call light in reach. Denies pain. Will conitnue with plan of care.
[2019-03-29 20:00] VITALS: BP 139/53
--- NOTE | 2019-03-29 20:48 | General Progress Note ---
Assessment/Plan Assessment/Plan: Assessment - diverticulitis - abnormal GB with duodenal fistula - ? cholecystitis, ? GB cancer - Anemia - abnormal LFT Recommendations - clear liq diet - abx - surgical f/u - check tumor markers Subjective Allergies: Coded Allergies: No Known Allergies (Unverified , 04/03/17) Subjective Feels OK no more abd pain now Objective Last 24 Hour Vital Signs Date Time Temp Pulse Resp B/P (MAP) Pulse Ox O2 Delivery O2 Flow Rate FiO2 03/29/19 16:00 98.6 79 18 121/58 (79) 97 03/29/19 12:00 98.7 81 18 126/51 (76) 96 03/29/19 08:55 86 130/73 03/29/19 07:54 Room Air 03/29/19 07:53 98.6 86 19 130/73 (92) 96 03/29/19 04:00 98.3 89 20 136/69 (91) 95 03/29/19 00:00 98.5 85 20 131/65 (87) 03/28/19 21:00 Room Air Intake and Output 03/28/19 03/29/19 19:00 07:00 Intake Total 527.5 ml 55.0 ml Balance 527.5 ml 55.0 ml IV Total 27.5 ml 55.0 ml Other 500 ml # Voids 2 # Bowel Movements 1 Laboratory Tests 03/29/19 04:00: Stool Occult Blood Positive 03/29/19 05:35: White Blood Count 8.2, Red Blood Count 3.29L, Hemoglobin 9.4L, Hematocrit 28.8L , Mean Corpuscular Volume 88, Mean Corpuscular Hemoglobin 28.5, Mean Corpuscular Hemoglobin Concent 32.5, Red Cell Distribution Width 12.3, Platelet Count 415, Mean Platelet Volume 4.9L, Neutrophils (%) (Auto) 70.6, Lymphocytes ( %) (Auto) 15.6L, Monocytes (%) (Auto) 11.0H, Eosinophils (%) (Auto) 1.9, Basophils (%) (Auto) 0.9, Reticulocyte Count 0.6, Prothrombin Time 10.0, Prothromb Time International Ratio 0.9, Activated Partial Thromboplast Time 27, Sodium Level 134L, Potassium Level 3.4L, Chloride Level 99, Carbon Dioxide Level 29, Anion Gap 6, Blood Urea Nitrogen 11, Creatinine 0.7, Estimat Glomerular Filtration Rate , Glucose Level 122H, Calcium Level 8.8, Iron Level 53, Total Iron Binding Capacity 206L, Percent Iron Saturation 26, Unsaturated Iron Binding 153, Ferritin 34, Total Bilirubin 0.4, Aspartate Amino Transf (AST/ SGOT) 196H, Alanine Aminotransferase (ALT/SGPT) 378H, Alkaline Phosphatase 338H , Total Protein 6.5, Albumin 2.5L, Globulin 4.0, Albumin/Globulin Ratio 0.6L, Vitamin B12 Level 989H, Folate 24.4, Thyroid Stimulating Hormone (TSH) 0.554, Free Thyroxine 1.49H, Hepatitis A IgM Antibody [Pending], Hepatitis B Surface Antigen [Pending], Hepatitis B Core IgM Antibody [Pending], Hepatitis C Antibody [Pending] 03/29/19 16:00: White Blood Count 7.1, Red Blood Count 3.11L, Hemoglobin 8.9L, Hematocrit 27.5L , Mean Corpuscular Volume 88, Mean Corpuscular Hemoglobin 28.6, Mean Corpuscular Hemoglobin Concent 32.4, Red Cell Distribution Width 11.7, Platelet Count 372, Mean Platelet Volume 4.9L, Neutrophils (%) (Auto) 61.7, Lymphocytes ( %) (Auto) 22.2, Monocytes (%) (Auto) 13.6H, Eosinophils (%) (Auto) 1.2, Basophils (%) (Auto) 1.3 Height (Feet): 4 Height (Inches): 3.00 Weight (Pounds): 95 Objective WDWN elderly woman NCAT supple CTA RRR abd soft ND NT no edema nonfocal Franko Murrell MD Mar 29, 2019 20:48
[2019-03-30] MEDS: Piperacillin/Tazobactam 3.375 GM in NS 110 ML IVPB SCH ×2 (00:59→12:24)
[2019-03-30 04:00] VITALS: BP 141/53
[2019-03-30] MEDS: NovoLOG Insulin Flexpen SUBQ SCH ×4 (06:30→21:23)
[2019-03-30 07:22] LABS: BASOPHILS % (AUTO) 1.2 % (0.0-2.0); EOSINOPHILS % (AUTO) 2.7 % (0.0-3.0); HEMATOCRIT 29.4 % (37.0-47.0); HEMOGLOBIN 9.5 G/DL (12.0-16.0); LYMPHOCYTES % (AUTO) 32.7 % (20.0-45.0); MEAN CORPUSCULAR VOLUME 87 FL (80-99); MONOCYTES % (AUTO) 12.7 % (1.0-10.0); NEUTROPHILS % (AUTO) 50.7 % (45.0-75.0); PLATELET COUNT 448 K/UL (150-450); RED BLOOD COUNT 3.37 M/UL (4.20-5.40); RED CELL DISTRIBUTION WIDTH 12.5 % (11.6-14.8); WHITE BLOOD COUNT 6.3 K/UL (4.8-10.8)
--- NOTE | 2019-03-30 07:38 | NUR ---
HAND-OFF: Report given to DIMITRIOS Fontenot.
--- NOTE | 2019-03-30 08:12 | NUR ---
NURSE NOTES: Patient is awake and alert,respirations unlabored.Patient patient ate breakfast.will monitor.Call light within reach,
[2019-03-30 08:20] VITALS: BP 128/52
[2019-03-30] MEDS: Memantine 5 MG TAB ORAL SCH (08:22)
[2019-03-30 08:23] LABS: ALANINE AMINOTRANSFERASE 257 U/L (12-78); ALBUMIN 2.7 G/DL (3.4-5.0); ALBUMIN/GLOBULIN RATIO 0.7 (1.0-2.7); ALKALINE PHOSPHATASE 269 U/L (46-116); ANION GAP 11 mmol/L (5-15); ASPARTATE AMINO TRANSFERASE 91 U/L (15-37); BILIRUBIN,TOTAL 0.4 MG/DL (0.2-1.0); BLOOD UREA NITROGEN 6 mg/dL (7-18); CALCIUM 9.2 MG/DL (8.5-10.1); CARBON DIOXIDE 26 MMOL/L (21-32); CHLORIDE 102 MMOL/L (98-107); CREATININE 0.8 MG/DL (0.55-1.30); POTASSIUM 3.7 MMOL/L (3.5-5.1); SODIUM 139 MMOL/L (136-145)
[2019-03-30] MEDS: Heparin 5000 units/ml inj SUBQ SCH ×2 (08:24→21:17)
--- NOTE | 2019-03-30 10:46 | Infectious Diseases Prog Note ---
Assessment/Plan Assessment/Plan 83 yo female with PMHx of DM, HTN and Asthma who presented to the ED on 03/27/19 with 4 days of abdominal pain. Probable cholecystitis CT abd 03/27/19 - Severe distention of the gallbladder, wall thickening, secondary to a large intraluminal gallstones. Cholecystitis is suspected. Correlate clinically. 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 There does appear to be some radiotracer filling the extremely distorted gallbladder, but this could be from the bowel connection, rather than the cystic duct. Leukocytosis - resolved No Fever DM HTN HLD Asthma Arthritis PLAN - Continue Zosyn #3/ - f/u Surgery recs - No surgical intervention at this time. - Monitor CBC and temps Thank you for this consult. [facility] will continue to follow the patient with you during this hospitalization. CT demonstrates a 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 There does appear to be some radiotracer filling the extremely distorted gallbladder, but this could be from the bowel connection, rather than the cystic duct. Subjective Allergies: Coded Allergies: No Known Allergies (Unverified , 04/03/17) Subjective Afebrile Leukocytosis resolved Objective Vital Signs Last 24 Hour Vital Signs Date Time Temp Pulse Resp B/P (MAP) Pulse Ox O2 Delivery O2 Flow Rate FiO2 03/30/19 08:23 70 128/52 03/30/19 08:20 99.5 70 18 128/52 (77) 95 03/30/19 04:00 98.1 74 19 141/53 (82) 98 03/29/19 21:00 Room Air 03/29/19 20:00 99.6 75 18 139/53 (81) 95 03/29/19 16:00 98.6 79 18 121/58 (79) 97 03/29/19 12:00 98.7 81 18 126/51 (76) 96 Height (Feet): 4 Height (Inches): 3.00 Weight (Pounds): 95 Objective Gen: NAD HEENT: NCAT, MMM, EOMI LUNGS: CTAB, No W CARDS: RRR, S1, S2 ABD: Soft, NT, ND Microbiology Date/Time Source Procedure Growth Status 03/27/19 11:15 Blood Blood Culture - Preliminary NO GROWTH AFTER 48 HOURS Resulted 03/27/19 11:00 Blood Blood Culture - Preliminary NO GROWTH AFTER 48 HOURS Resulted Laboratory Tests Test 03/29/19 16:00 03/30/19 05:33 White Blood Count 7.1 K/UL (4.8-10.8) 6.3 K/UL (4.8-10.8) Red Blood Count 3.11 M/UL (4.20-5.40) L 3.37 M/UL (4.20-5.40) L Hemoglobin 8.9 G/DL (12.0-16.0) L 9.5 G/DL (12.0-16.0) L Hematocrit 27.5 % (37.0-47.0) L 29.4 % (37.0-47.0) L Mean Corpuscular Volume 88 FL (80-99) 87 FL (80-99) Mean Corpuscular Hemoglobin 28.6 PG (27.0-31.0) 28.1 PG (27.0-31.0) Mean Corpuscular Hemoglobin Concent 32.4 G/DL (32.0-36.0) 32.2 G/DL (32.0-36.0) Red Cell Distribution Width 11.7 % (11.6-14.8) 12.5 % (11.6-14.8) Platelet Count 372 K/UL (150-450) 448 K/UL (150-450) Mean Platelet Volume 4.9 FL (6.5-10.1) L 4.7 FL (6.5-10.1) L Neutrophils (%) (Auto) 61.7 % (45.0-75.0) 50.7 % (45.0-75.0) Lymphocytes (%) (Auto) 22.2 % (20.0-45.0) 32.7 % (20.0-45.0) Monocytes (%) (Auto) 13.6 % (1.0-10.0) H 12.7 % (1.0-10.0) H Eosinophils (%) (Auto) 1.2 % (0.0-3.0) 2.7 % (0.0-3.0) Basophils (%) (Auto) 1.3 % (0.0-2.0) 1.2 % (0.0-2.0) Sodium Level 139 MMOL/L (136-145) Potassium Level 3.7 MMOL/L (3.5-5.1) Chloride Level 102 MMOL/L (98-107) Carbon Dioxide Level 26 MMOL/L (21-32) Anion Gap 11 mmol/L (5-15) Blood Urea Nitrogen 6 mg/dL (7-18) L Creatinine 0.8 MG/DL (0.55-1.30) Estimat Glomerular Filtration Rate mL/min (>60) Glucose Level 109 MG/DL (74-106) H Calcium Level 9.2 MG/DL (8.5-10.1) Total Bilirubin 0.4 MG/DL (0.2-1.0) Aspartate Amino Transf (AST/SGOT) 91 U/L (15-37) H Alanine Aminotransferase (ALT/SGPT) 257 U/L (12-78) H Alkaline Phosphatase 269 U/L (46-116) H Total Protein 6.6 G/DL (6.4-8.2) Albumin 2.7 G/DL (3.4-5.0) L Globulin 3.9 g/dL Albumin/Globulin Ratio 0.7 (1.0-2.7) L Carcinoembryonic Antigen Pending CA 19-9 Antigen Pending Current Medications Medications (Trade) Dose Ordered Sig/Lora Route PRN Reason Start Time Stop Time Status Last Admin Dose Admin Acetaminophen (Tylenol) 650 mg Q4H PRN ORAL fever 03/27/19 13:30 04/26/19 13:29 Amlodipine Besylate (Norvasc) 5 mg DAILY ORAL 03/28/19 09:00 04/27/19 08:59 03/30/19 08:23 Dextrose (Dextrose 50%) 25 ml Q30M PRN IV Hypoglycemia 03/27/19 13:30 04/26/19 13:29 Dextrose (Dextrose 50%) 50 ml Q30M PRN IV Hypoglycemia 03/27/19 13:30 04/26/19 13:29 Heparin Sodium (Porcine) (Heparin 5000 units/ml) 5,000 units EVERY 12 HOURS SUBQ 03/27/19 21:00 04/26/19 20:59 03/30/19 08:24 Insulin Aspart (NovoLOG) BEFORE MEALS AND HS SUBQ 03/27/19 16:30 04/26/19 16:29 03/29/19 12:17 Lorazepam (Ativan 2mg/ml 1ml) 0.5 mg Q4H PRN IV For Anxiety 03/27/19 13:30 04/03/19 13:29 Memantine (Namenda) 5 mg DAILY ORAL 03/28/19 09:00 04/27/19 08:59 03/30/19 08:22 Morphine Sulfate (Morphine Sulfate) 1 mg Q4H PRN IVP For Pain 03/27/19 13:30 04/03/19 13:29 Ondansetron HCl (Zofran) 4 mg Q6H PRN IVP Nausea & Vomiting 03/27/19 13:30 04/26/19 13:29 Pantoprazole (Protonix) 40 mg EVERY 12 HOURS ORAL 03/28/19 21:00 04/27/19 20:59 03/30/19 08:24 Piperacillin Sod/ Tazobactam Sod 3.375 gm/Sodium Chloride 110 ml @ 27.5 mls/hr Q12H IVPB 03/28/19 12:00 04/04/19 11:59 03/30/19 00:59 Polyethylene Glycol (Miralax) 17 gm HSPRN PRN ORAL Constipation 03/27/19 13:30 04/26/19 13:29 Pravastatin Sodium (Pravachol) 20 mg BEDTIME ORAL 03/27/19 21:00 04/26/19 20:59 03/29/19 21:03 Zolpidem Tartrate (Ambien) 5 mg HSPRN PRN ORAL Insomnia 03/27/19 13:30 04/03/19 13:29 Michael Alvarenga MD Mar 30, 2019 10:46
[2019-03-30 12:00] VITALS: BP 130/54
--- NOTE | 2019-03-30 13:56 | Surgery Progress Note ---
Surgery Progress Note Subjective Additional Comments White count resolved, pain resolved, tolerating diet. States she is doing well with no complaints. Labs much improved. Overall clinically improved. Objective Last 24 Hour Vital Signs Date Time Temp Pulse Resp B/P (MAP) Pulse Ox O2 Delivery O2 Flow Rate FiO2 03/30/19 12:00 99.7 87 18 130/54 (79) 94 03/30/19 09:00 Room Air 03/30/19 08:23 70 128/52 03/30/19 08:20 99.5 70 18 128/52 (77) 95 03/30/19 04:00 98.1 74 19 141/53 (82) 98 03/29/19 21:00 Room Air 03/29/19 20:00 99.6 75 18 139/53 (81) 95 03/29/19 16:00 98.6 79 18 121/58 (79) 97 I&O Intake and Output 03/29/19 03/30/19 18:59 06:59 Intake Total 875.0 ml Balance 875.0 ml Intake Oral 820 ml IV Total 55.0 ml # Voids 6 2 # Bowel Movements 1 Cardiovascular: RSR Respiratory: clear Abdomen: soft, flat, non-tender, present bowel sounds Extremities: no edema, no tenderness, no cyanosis Laboratory Tests Test 03/29/19 16:00 03/30/19 05:33 White Blood Count 7.1 K/UL (4.8-10.8) 6.3 K/UL (4.8-10.8) Red Blood Count 3.11 M/UL (4.20-5.40) L 3.37 M/UL (4.20-5.40) L Hemoglobin 8.9 G/DL (12.0-16.0) L 9.5 G/DL (12.0-16.0) L Hematocrit 27.5 % (37.0-47.0) L 29.4 % (37.0-47.0) L Mean Corpuscular Volume 88 FL (80-99) 87 FL (80-99) Mean Corpuscular Hemoglobin 28.6 PG (27.0-31.0) 28.1 PG (27.0-31.0) Mean Corpuscular Hemoglobin Concent 32.4 G/DL (32.0-36.0) 32.2 G/DL (32.0-36.0) Red Cell Distribution Width 11.7 % (11.6-14.8) 12.5 % (11.6-14.8) Platelet Count 372 K/UL (150-450) 448 K/UL (150-450) Mean Platelet Volume 4.9 FL (6.5-10.1) L 4.7 FL (6.5-10.1) L Neutrophils (%) (Auto) 61.7 % (45.0-75.0) 50.7 % (45.0-75.0) Lymphocytes (%) (Auto) 22.2 % (20.0-45.0) 32.7 % (20.0-45.0) Monocytes (%) (Auto) 13.6 % (1.0-10.0) H 12.7 % (1.0-10.0) H Eosinophils (%) (Auto) 1.2 % (0.0-3.0) 2.7 % (0.0-3.0) Basophils (%) (Auto) 1.3 % (0.0-2.0) 1.2 % (0.0-2.0) Sodium Level 139 MMOL/L (136-145) Potassium Level 3.7 MMOL/L (3.5-5.1) Chloride Level 102 MMOL/L (98-107) Carbon Dioxide Level 26 MMOL/L (21-32) Anion Gap 11 mmol/L (5-15) Blood Urea Nitrogen 6 mg/dL (7-18) L Creatinine 0.8 MG/DL (0.55-1.30) Estimat Glomerular Filtration Rate mL/min (>60) Glucose Level 109 MG/DL (74-106) H Calcium Level 9.2 MG/DL (8.5-10.1) Total Bilirubin 0.4 MG/DL (0.2-1.0) Aspartate Amino Transf (AST/SGOT) 91 U/L (15-37) H Alanine Aminotransferase (ALT/SGPT) 257 U/L (12-78) H Alkaline Phosphatase 269 U/L (46-116) H Total Protein 6.6 G/DL (6.4-8.2) Albumin 2.7 G/DL (3.4-5.0) L Globulin 3.9 g/dL Albumin/Globulin Ratio 0.7 (1.0-2.7) L Carcinoembryonic Antigen Pending CA 19-9 Antigen Pending Plan Problems: (1) Cholecystitis Assessment & Plan: Improving labs improved pain improved diet cont with medical management HIDA results concerning CT demonstrates a 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 There does appear to be some radiotracer filling the extremely distorted gallbladder, but this could be from the bowel connection, rather than the cystic duct. will need to review studies with radiologist first when they are available. she has giant stones, choleduo fistula, and current presentation.once radiology reviewed will formulate a care plan for surgical intervention Findings: The gallbladder is severely distended with wall thickening secondary to very large stones within the lumen. For example one of the stones measures about 6 x 3 cm. There is another stone and measures 2.7 cm. Cholecystitis is suspected. Biliary ducts are mildly prominent. The sigmoid colon appears abnormal. There are diverticula with ill-definition of the wall and slight thickening of the wall. Diverticulitis is not excluded and should be considered as well. There is an umbilical hernia containing fat. Bowel gas pattern is nonobstructive appendix is probably seen partially and unremarkable as such. The aorta and iliac arteries are tortuous moderately calcified. Bladder is nondistended. There is no ascites. There is no hydronephrosis, adrenal mass or splenomegaly. Pancreas is unremarkable. There is a hiatal hernia. Minimal streaky atelectasis versus scarring at the lung bases noted. There is narrowing of intervertebral discs and accompanying endplate osteophyte formation. Hypertrophied facet joints also demonstrated. Uterus is not seen. IMPRESSION: Severe distention of the gallbladder, wall thickening, secondary to a large intraluminal gallstones. Cholecystitis is suspected. Correlate clinically. Suspected diverticulitis in the sigmoid region with wall thickening and mild perisigmoid inflammation with multiple diverticula in the sigmoid colon and elsewhere in the colon. No abscess. 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 Sonographic Florez's is negative per technologist. The liver is unremarkable. Doppler interrogation of the main portal vein shows patency with hepatopedal, monophasic flow. There is no biliary ductal dilatation identified. The demonstrated part of the pancreas, aorta and IVC show no definite abnormalities. Both kidneys appear unremarkable. There is no hydronephrosis. IMPRESSION: Cholelithiasis Had a long discussion today at the bedside with the patient and her son. States that there is no other family insisted to them. I discussed with them the CT HIDA scan and ultrasound findings in detail. I discussed with them the concerns for a gallbladder enteric fistula and the potential of gallstone ileus and her large car stones and the inflammation identified on the CT and these findings. We discussed how she is significantly improved and currently asymptomatic and recovering well. We discussed her age her medical comorbidities and her overall condition. I asked the patient and her son to consider her options of possible surgical versus nonsurgical intervention. I explained to him that given these findings that were discovered on her imaging that if she does truly have a fistula between the gallbladder and the duodenum with these large stones and her bladder findings there is potential for possible insult in the future which could be concerning. I explained to him that there is consideration for surgical intervention with cholecystectomy and if necessary division/repair of the fistula. I explained to him that this will likely be a major surgery and would require open surgery rather than laparoscopic and does have potential morbidity and even chance of mortality. Patient's son seem to understand. I explained to him currently she is doing well we will advance her diet and continue the antibiotics and medical management of her acute event. If they do decide to proceed with surgery I will discuss with them the appropriate timing of doing so. (3) Diverticulitis Assessment & Plan: medical management (4) Elevated liver enzymes Assessment & Plan: hep panel labs trend will monitor (5) Failure to thrive in adult Assessment & Plan: diet as tolerated Alexandro Perez Mar 30, 2019 13:55
[2019-03-30 16:00] VITALS: BP 149/65
--- NOTE | 2019-03-30 16:18 | General Progress Note ---
Assessment/Plan Assessment/Plan: Assessment - diverticulitis - abnormal GB with duodenal fistula - ? cholecystitis, ? GB cancer - Anemia - abnormal LFT Recommendations - diet per surgery - abx - surgical f/u - check tumor markers Subjective Allergies: Coded Allergies: No Known Allergies (Unverified , 04/03/17) Subjective Feels OK minimal RUQ pain wants more food Objective Last 24 Hour Vital Signs Date Time Temp Pulse Resp B/P (MAP) Pulse Ox O2 Delivery O2 Flow Rate FiO2 03/30/19 12:00 99.7 87 18 130/54 (79) 94 03/30/19 09:00 Room Air 03/30/19 08:23 70 128/52 03/30/19 08:20 99.5 70 18 128/52 (77) 95 03/30/19 04:00 98.1 74 19 141/53 (82) 98 03/29/19 21:00 Room Air 03/29/19 20:00 99.6 75 18 139/53 (81) 95 Intake and Output 03/29/19 03/30/19 19:00 07:00 Intake Total 875.0 ml Balance 875.0 ml Intake Oral 820 ml IV Total 55.0 ml # Voids 6 2 # Bowel Movements 1 Laboratory Tests 03/30/19 05:33: White Blood Count 6.3, Red Blood Count 3.37L, Hemoglobin 9.5L, Hematocrit 29.4L , Mean Corpuscular Volume 87, Mean Corpuscular Hemoglobin 28.1, Mean Corpuscular Hemoglobin Concent 32.2, Red Cell Distribution Width 12.5, Platelet Count 448, Mean Platelet Volume 4.7L, Neutrophils (%) (Auto) 50.7, Lymphocytes ( %) (Auto) 32.7, Monocytes (%) (Auto) 12.7H, Eosinophils (%) (Auto) 2.7, Basophils (%) (Auto) 1.2, Sodium Level 139, Potassium Level 3.7, Chloride Level 102, Carbon Dioxide Level 26, Anion Gap 11, Blood Urea Nitrogen 6L, Creatinine 0.8, Estimat Glomerular Filtration Rate , Glucose Level 109H, Calcium Level 9.2 , Total Bilirubin 0.4, Aspartate Amino Transf (AST/SGOT) 91H, Alanine Aminotransferase (ALT/SGPT) 257H, Alkaline Phosphatase 269H, Total Protein 6.6, Albumin 2.7L, Globulin 3.9, Albumin/Globulin Ratio 0.7L, Carcinoembryonic Antigen [Pending], CA 19-9 Antigen [Pending] Height (Feet): 4 Height (Inches): 3.00 Weight (Pounds): 95 Objective WDWN elderly woman NCAT supple CTA RRR abd soft ND NT no edema nonfocal Franko Murrell MD Mar 30, 2019 16:18
--- NOTE | 2019-03-30 17:26 | Internal Med Progress Note ---
Subjective Date of Service: Mar 30, 2019 Physician Name Isaías Atwood Attending Physician Logan Camargo MD Current Medications Medications (Trade) Dose Ordered Sig/Lora Route PRN Reason Start Time Stop Time Status Last Admin Dose Admin Acetaminophen (Tylenol) 650 mg Q4H PRN ORAL fever 03/27/19 13:30 04/26/19 13:29 Amlodipine Besylate (Norvasc) 5 mg DAILY ORAL 03/28/19 09:00 04/27/19 08:59 03/30/19 08:23 Dextrose (Dextrose 50%) 25 ml Q30M PRN IV Hypoglycemia 03/27/19 13:30 04/26/19 13:29 Dextrose (Dextrose 50%) 50 ml Q30M PRN IV Hypoglycemia 03/27/19 13:30 04/26/19 13:29 Heparin Sodium (Porcine) (Heparin 5000 units/ml) 5,000 units EVERY 12 HOURS SUBQ 03/27/19 21:00 04/26/19 20:59 03/30/19 08:24 Insulin Aspart (NovoLOG) BEFORE MEALS AND HS SUBQ 03/27/19 16:30 04/26/19 16:29 03/30/19 12:22 Lorazepam (Ativan 2mg/ml 1ml) 0.5 mg Q4H PRN IV For Anxiety 03/27/19 13:30 04/03/19 13:29 Memantine (Namenda) 5 mg DAILY ORAL 03/28/19 09:00 04/27/19 08:59 03/30/19 08:22 Morphine Sulfate (Morphine Sulfate) 1 mg Q4H PRN IVP For Pain 03/27/19 13:30 04/03/19 13:29 Ondansetron HCl (Zofran) 4 mg Q6H PRN IVP Nausea & Vomiting 03/27/19 13:30 04/26/19 13:29 Pantoprazole (Protonix) 40 mg EVERY 12 HOURS ORAL 03/28/19 21:00 04/27/19 20:59 03/30/19 08:24 Piperacillin Sod/ Tazobactam Sod 3.375 gm/Sodium Chloride 110 ml @ 27.5 mls/hr Q12H IVPB 03/28/19 12:00 04/04/19 11:59 03/30/19 12:24 Polyethylene Glycol (Miralax) 17 gm HSPRN PRN ORAL Constipation 03/27/19 13:30 04/26/19 13:29 Pravastatin Sodium (Pravachol) 20 mg BEDTIME ORAL 03/27/19 21:00 04/26/19 20:59 03/29/19 21:03 Zolpidem Tartrate (Ambien) 5 mg HSPRN PRN ORAL Insomnia 03/27/19 13:30 04/03/19 13:29 Allergies: Coded Allergies: No Known Allergies (Unverified , 04/03/17) ROS Limited/Unobtainable: No Constitutional: Reports: no symptoms HEENT: Reports: no symptoms Cardiovascular: Reports: no symptoms Respiratory: Reports: no symptoms Gastrointestinal/Abdominal: Reports: abdominal pain Genitourinary: Reports: no symptoms Neurologic/Psychiatric: Reports: no symptoms Subjective 83 YO F admitted with right upper quadrant pain. Now acute cholecystitis and cholelithiasis. Cover for Int Med-Dr Camargo Objective Last Vital Signs Date Time Temp Pulse Resp B/P (MAP) Pulse Ox O2 Delivery O2 Flow Rate FiO2 03/30/19 12:00 99.7 87 18 130/54 (79) 94 03/30/19 09:00 Room Air Laboratory Tests Test 03/30/19 05:33 White Blood Count 6.3 K/UL (4.8-10.8) Red Blood Count 3.37 M/UL (4.20-5.40) L Hemoglobin 9.5 G/DL (12.0-16.0) L Hematocrit 29.4 % (37.0-47.0) L Mean Corpuscular Volume 87 FL (80-99) Mean Corpuscular Hemoglobin 28.1 PG (27.0-31.0) Mean Corpuscular Hemoglobin Concent 32.2 G/DL (32.0-36.0) Red Cell Distribution Width 12.5 % (11.6-14.8) Platelet Count 448 K/UL (150-450) Mean Platelet Volume 4.7 FL (6.5-10.1) L Neutrophils (%) (Auto) 50.7 % (45.0-75.0) Lymphocytes (%) (Auto) 32.7 % (20.0-45.0) Monocytes (%) (Auto) 12.7 % (1.0-10.0) H Eosinophils (%) (Auto) 2.7 % (0.0-3.0) Basophils (%) (Auto) 1.2 % (0.0-2.0) Sodium Level 139 MMOL/L (136-145) Potassium Level 3.7 MMOL/L (3.5-5.1) Chloride Level 102 MMOL/L (98-107) Carbon Dioxide Level 26 MMOL/L (21-32) Anion Gap 11 mmol/L (5-15) Blood Urea Nitrogen 6 mg/dL (7-18) L Creatinine 0.8 MG/DL (0.55-1.30) Estimat Glomerular Filtration Rate mL/min (>60) Glucose Level 109 MG/DL (74-106) H Calcium Level 9.2 MG/DL (8.5-10.1) Total Bilirubin 0.4 MG/DL (0.2-1.0) Aspartate Amino Transf (AST/SGOT) 91 U/L (15-37) H Alanine Aminotransferase (ALT/SGPT) 257 U/L (12-78) H Alkaline Phosphatase 269 U/L (46-116) H Total Protein 6.6 G/DL (6.4-8.2) Albumin 2.7 G/DL (3.4-5.0) L Globulin 3.9 g/dL Albumin/Globulin Ratio 0.7 (1.0-2.7) L Carcinoembryonic Antigen Pending CA 19-9 Antigen Pending Intake and Output 03/29/19 03/30/19 19:00 07:00 Intake Total 875.0 ml Balance 875.0 ml Intake Oral 820 ml IV Total 55.0 ml # Voids 6 2 # Bowel Movements 1 Objective PHYSICAL EXAMINATION: GENERAL: The patient is a well-developed and well-nourished female, in no apparent distress. HEENT: Eyes, pupils are equal and responsive to light and accommodation. Extraocular movements are intact. NECK: Supple without lymphadenopathy. CHEST: Lungs are clear to auscultation bilaterally without wheezes or rales. CARDIOVASCULAR: Regular rhythm and rate. S1, S2 normal without murmurs, rubs, or gallops. ABDOMEN: Soft, nondistended with decreased bowel sounds. There is pain to palpation to right upper quadrant. No evidence of rebound or guarding noted. EXTREMITIES: Negative for clubbing, cyanosis, or edema. RECTAL/GENITAL: Not performed. NEUROLOGIC: Cranial nerves II through XII are grossly intact without focal deficits. Motor strength is 5/5 bilaterally. Deep tendon reflexes are 2+ plantar. Assessment/Plan Assessment/Plan ASSESSMENT: This is an 83-year-old female with: 1. Right upper quadrant pain. 2. Acute cholecystitis. 3. Cholelithiasis. 4. Elevated liver function tests. 5. Diverticulitis. 6. Diabetes type 2. 7. Hypertension. 8. Hypercholesterolemia. 9. Asthma. 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 Right upper quadrant pain/diverticulitis. A Gastroenterology consultation has been obtained with Dr. Panda Friedman. 2. Acute cholecystitis/cholelithiasis. 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 A General Surgery consultation has been obtained with Dr. Perez. The patient has been started empirically on intravenous ciprofloxacin and metronidazole. Surgery date is pending 3. Elevated liver function tests. Differential includes acute hepatitis secondary to cholelithiasis versus chronic hepatitis. A hepatitis panel is pending. As above, a Gastroenterology consultation has been obtained with Dr. Panda Friedman. 4. Diabetes type 2. The patient has been placed on NovoLog sliding scale. 5. Hypertension. The patient is currently hypotensive. Hold amlodipine above. 6. Hypercholesterolemia. Continue simvastatin 20 mg p.o. daily. 7. Asthma. Isaías Atwood MD Mar 30, 2019 17:26
--- NOTE | 2019-03-30 17:42 | Cardiology Report ---
APPROVED REPORT EKG Measurement Heart [id number] Normal sinus rhythm with sinus arrhythmia Cannot rule out Anterior infarct, age undetermined Abnormal ECG
--- NOTE | 2019-03-30 18:58 | NUR ---
NURSE NOTES: Patient visiting with family,no complaint of pain when asked.Call light within reach.
--- NOTE | 2019-03-30 19:50 | NUR ---
HAND-OFF: Report given to Lulu PLUNKETT.
[2019-03-30 20:00] VITALS: BP 133/52
--- NOTE | 2019-03-30 20:02 | NUR ---
NURSE NOTES: Received patient in bed, awake, alert, oriented x4, [place] speaking , no acute distress noted, IV site is clean dry and intact. Call light is within reach, bed is low, locked and alarm is on, will ensure safety an comfort.
[2019-03-31] VITALS: BP 129/70
[2019-03-31] MEDS: Piperacillin/Tazobactam 3.375 GM in NS 110 ML IVPB SCH ×3 (00:44→23:32)
[2019-03-31 04:00] VITALS: BP 141/53
[2019-03-31] MEDS: NovoLOG Insulin Flexpen SUBQ SCH ×4 (05:49→21:00)
[2019-03-31 06:45] LABS: INR 0.9 (0.9-1.1)
[2019-03-31 07:07] LABS: BASOPHILS % (AUTO) 1.2 % (0.0-2.0); EOSINOPHILS % (AUTO) 2.8 % (0.0-3.0); HEMATOCRIT 27.9 % (37.0-47.0); HEMOGLOBIN 8.9 G/DL (12.0-16.0); LYMPHOCYTES % (AUTO) 25.3 % (20.0-45.0); MEAN CORPUSCULAR VOLUME 87 FL (80-99); MONOCYTES % (AUTO) 14.5 % (1.0-10.0); NEUTROPHILS % (AUTO) 56.2 % (45.0-75.0); PLATELET COUNT 427 K/UL (150-450); WHITE BLOOD COUNT 6.7 K/UL (4.8-10.8)
[2019-03-31 07:17] LABS: ALANINE AMINOTRANSFERASE 199 U/L (12-78); ALBUMIN 2.6 G/DL (3.4-5.0); ALBUMIN/GLOBULIN RATIO 0.7 (1.0-2.7); ALKALINE PHOSPHATASE 225 U/L (46-116); AMYLASE 59 U/L (25-115); ANION GAP 6 mmol/L (5-15); ASPARTATE AMINO TRANSFERASE 76 U/L (15-37); BILIRUBIN,TOTAL 0.3 MG/DL (0.2-1.0); BLOOD UREA NITROGEN 5 mg/dL (7-18); CALCIUM 9.1 MG/DL (8.5-10.1); CARBON DIOXIDE 30 MMOL/L (21-32); CHLORIDE 104 MMOL/L (98-107); CREATININE 0.7 MG/DL (0.55-1.30); POTASSIUM 3.6 MMOL/L (3.5-5.1); SODIUM 140 MMOL/L (136-145)
--- NOTE | 2019-03-31 07:29 | NUR ---
HAND-OFF: Report given to Pauline PLUNKETT.
[2019-03-31 08:00] VITALS: BP 138/61
[2019-03-31] MEDS: Memantine 5 MG TAB ORAL SCH (08:12)
[2019-03-31] MEDS: Heparin 5000 units/ml inj SUBQ SCH ×2 (08:13→21:00)
--- NOTE | 2019-03-31 11:22 | Pulmonology Progress Note ---
Assessment/Plan Problems: (1) duodeno-cholecytic fistula (2) Cholecystitis (3) Cholelithiases (4) Hepatitis (5) Failure to thrive in adult (6) Diabetes mellitus (7) Diverticulitis Assessment/Plan all noted HIDA scan noted, continue abx check cultures f/u surgical recommendations sliding scale probable ileus caused by gall stone. f/u GI recommendations Subjective ROS Limited/Unobtainable: No Constitutional: Reports: no symptoms HEENT: Repors: no symptoms Respiratory: Reports: no symptoms Allergies: Coded Allergies: No Known Allergies (Unverified , 04/03/17) Objective Last 24 Hour Vital Signs Date Time Temp Pulse Resp B/P (MAP) Pulse Ox O2 Delivery O2 Flow Rate FiO2 03/31/19 08:25 74 138/61 03/31/19 08:00 98.0 74 19 138/61 (86) 74 03/31/19 04:00 98.3 70 16 141/53 (82) 70 03/31/19 00:00 98.1 74 20 129/70 (89) 03/30/19 21:00 Room Air 03/30/19 20:00 97.8 80 18 133/52 (79) 03/30/19 16:00 98.4 85 21 149/65 (93) 97 03/30/19 12:00 99.7 87 18 130/54 (79) 94 Intake and Output 03/30/19 03/31/19 19:00 07:00 Intake Total 480 ml 240 ml Balance 480 ml 240 ml Intake Oral 480 ml 240 ml Objective General Appearance: WD/WN HEENT: normocephalic, atraumatic Respiratory/Chest: chest wall non-tender, lungs clear Breasts: no masses Cardiovascular: normal peripheral pulses Abdomen: normal bowel sounds, soft, non tender Genitourinary: normal external genitalia Extremities: no clubbing Neurologic/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: 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 Lymphatic: no neck adenopathy Laboratory Tests 03/31/19 05:55: White Blood Count 6.7, Red Blood Count 3.20L, Hemoglobin 8.9L, Hematocrit 27.9L , Mean Corpuscular Volume 87, Mean Corpuscular Hemoglobin 27.9, Mean Corpuscular Hemoglobin Concent 32.0, Red Cell Distribution Width 13.0, Platelet Count 427, Mean Platelet Volume 4.8L, Neutrophils (%) (Auto) 56.2, Lymphocytes ( %) (Auto) 25.3, Monocytes (%) (Auto) 14.5H, Eosinophils (%) (Auto) 2.8, Basophils (%) (Auto) 1.2, Erythrocyte Sedimentation Rate 52H, Prothrombin Time 10.0, Prothromb Time International Ratio 0.9, Activated Partial Thromboplast Time 29, Sodium Level 140, Potassium Level 3.6, Chloride Level 104, Carbon Dioxide Level 30, Anion Gap 6, Blood Urea Nitrogen 5L, Creatinine 0.7, Estimat Glomerular Filtration Rate , Glucose Level 104, Calcium Level 9.1, Total Bilirubin 0.3, Aspartate Amino Transf (AST/SGOT) 76H, Alanine Aminotransferase ( ALT/SGPT) 199H, Alkaline Phosphatase 225H, C-Reactive Protein, Quantitative < 0.4, Total Protein 6.4, Albumin 2.6L, Globulin 3.8, Albumin/Globulin Ratio 0.7L , Amylase Level 59, Lipase 227 Current Medications Medications (Trade) Dose Ordered Sig/Lora Route PRN Reason Start Time Stop Time Status Last Admin Dose Admin Acetaminophen (Tylenol) 650 mg Q4H PRN ORAL fever 03/27/19 13:30 04/26/19 13:29 Amlodipine Besylate (Norvasc) 5 mg DAILY ORAL 03/28/19 09:00 04/27/19 08:59 03/31/19 08:25 Dextrose (Dextrose 50%) 25 ml Q30M PRN IV Hypoglycemia 03/27/19 13:30 04/26/19 13:29 Dextrose (Dextrose 50%) 50 ml Q30M PRN IV Hypoglycemia 03/27/19 13:30 04/26/19 13:29 Heparin Sodium (Porcine) (Heparin 5000 units/ml) 5,000 units EVERY 12 HOURS SUBQ 03/27/19 21:00 04/26/19 20:59 03/31/19 08:13 Insulin Aspart (NovoLOG) BEFORE MEALS AND HS SUBQ 03/27/19 16:30 04/26/19 16:29 03/30/19 21:23 Lorazepam (Ativan 2mg/ml 1ml) 0.5 mg Q4H PRN IV For Anxiety 03/27/19 13:30 04/03/19 13:29 Memantine (Namenda) 5 mg DAILY ORAL 03/28/19 09:00 04/27/19 08:59 03/31/19 08:12 Morphine Sulfate (Morphine Sulfate) 1 mg Q4H PRN IVP For Pain 03/27/19 13:30 04/03/19 13:29 Ondansetron HCl (Zofran) 4 mg Q6H PRN IVP Nausea & Vomiting 03/27/19 13:30 04/26/19 13:29 Pantoprazole (Protonix) 40 mg EVERY 12 HOURS ORAL 03/28/19 21:00 04/27/19 20:59 03/31/19 08:11 Piperacillin Sod/ Tazobactam Sod 3.375 gm/Sodium Chloride 110 ml @ 27.5 mls/hr Q12H IVPB 03/28/19 12:00 04/04/19 11:59 03/31/19 00:44 Polyethylene Glycol (Miralax) 17 gm HSPRN PRN ORAL Constipation 03/27/19 13:30 04/26/19 13:29 Pravastatin Sodium (Pravachol) 20 mg BEDTIME ORAL 03/27/19 21:00 04/26/19 20:59 03/30/19 21:16 Zolpidem Tartrate (Ambien) 5 mg HSPRN PRN ORAL Insomnia 03/27/19 13:30 04/03/19 13:29 Dony Eli MD Mar 31, 2019 11:22
--- NOTE | 2019-03-31 11:26 | NUR ---
REFERRED BY DR DOVE FOR A SWALLOW EVALUATION, SEE FULL REPORT TO FOLLOW. DYSPHAGIA RISK FACTORS FOR THIS 83 Y.O. YI-SPEAKING ([facility]) FEMALE: ACUTE ISSUES: INITIAL ABDOMINAL PAIN AND NAUSEA (RESOLVED NOW), FTT AND POOR APPETITE, HEPATITIS, CHOLELITHIASIS C/O SYMPTOMS THAT SOUND LIKE ESOPHAGEAL BACKFLOW WITH SOLIDS AND LIQUIDS AND XEROSTOMIA (DRY MOUTH) FOR A LONG TIME (NOT SPECIFIC). H/O HTN, DIABETES, ASTHMA, GERD MEDS (PROTONIX), ON NAMENDA MEDS NO NEURO DX POLST/AD NONE FOR TF IF NEEDED. WAS ON REGULAR TEXTURE DIET AND THIN LIQUIDS AT HOME (WAS INITIALLY ON CLEAR LIQUIDS. DR ESCALONA CLEARED FOR REG TEXTURE TODAY. ALERT AND HAS UPPER/LOWER DENTURES. NO PROBLEMS WITH SWALLOWING BUT C/O FOOD/LIQUIDS COMING UP TO LEVEL OF PHARYNGEAL OR AROUND UES LEVEL AND XEROSTOMIA (DRY MOUTH). PER PT, SHE HAD EGGS/OATMEAL AND DESCRIBED SYMPTOMS OF SOME RETROGRADE BACKFLOW TO MID CHEST. INITIAL IMPRESSIONS GROSSLY FUNTIONAL SWALLOW WITH WATER VIA STRAW SEQUENTIAL SIPS DURING 3 OZ WATER KIERSTEN SWALLOW PROTOCOL) BUT NEEDED TO STOP AND BREATH (HAS ASTHMA) AFTER 5 SIPS. DID NOT WANT TO FINISH THE WATER SINCE SHE SAID SHE HAS EPISODES OF FOOD/LIQUIDS BACKING UP ON HER. ASPIRATION RISK APPEARS RELATED TO ESOPHAGEAL DYSPHAGIA (BOLUSES GO TO LEVEL OF PHARYNX, UPPER ESOPHAGEAL SPHINCTER, OR MID CHEST. RECOMMENDATIONS: CONTINUE WITH CURRENT REGULAR DIET AND THIN LIQUIDS USING POSTED ASPIRATION AND REFLUX PRECAUTIONS. SMALL FREQUENT MEALS AND DIET TYPE PER RD (CRUZ) OF BLU AND [facility]-MED SINCE SHE IS ON PROTONIX ? NEED FOR GERD OR BLAND DIET. CONSIDER BIOTENE FOR XEROSTOMIA AND REVIEW MEDS AND SIDE EFFECTS FOR XEROSTOMIA. SKILLED DYSPHAGIA MANAGEMENT AND TX IF INDICATED ? NEED FOR COGNITIVE-COM EVAL SHE IS ON NAMENDA (WILL CHECK FURTHER) (DMITRIY ESOPHAGEAL SWALLOW STRATEGY IF INDICATED) EDUCATED/TRAINED PT/RN (EDITH) IN PRECAUTIONS Addendum: 03/31/19 at 1300 by SHUBHAM DURANT LIMITED INTAKE TO SOUP AND MASHED POTATOS WOULD BENEFIT FROM APPETITE STIMULANT AND GLUCERNA TID PER RD SINCE C/O POOR APPETITE
[2019-03-31 12:00] VITALS: BP 141/68
--- NOTE | 2019-03-31 12:37 | GI Progress Note ---
Assessment/Plan Problems: (1) duodeno-cholecytic fistula (2) Diabetes mellitus ICD Codes: E11.9 - Type 2 diabetes mellitus without complications SNOMED: 66249798 (3) Failure to thrive in adult ICD Codes: R62.7 - Adult failure to thrive SNOMED: 911367467 (4) Elevated liver enzymes ICD Codes: R74.8 - Abnormal levels of other serum enzymes SNOMED: 903619007 (5) Hepatitis ICD Codes: K75.9 - Inflammatory liver disease, unspecified SNOMED: 360070289 (6) Diverticulitis ICD Codes: K57.92 - Diverticulitis of intestine, part unspecified, without perforation or abscess without bleeding SNOMED: 290889623 (7) Cholelithiases ICD Codes: K80.20 - Calculus of gallbladder without cholecystitis without obstruction SNOMED: 586067958 (8) Cholecystitis ICD Codes: K81.9 - Cholecystitis, unspecified SNOMED: 85411952 Status: unchanged Status Narrative Discussed with Dr. Friedman. Assessment/Plan Assessment - diverticulitis - abnormal GB with duodenal fistula - ? cholecystitis, ? GB cancer - Anemia - abnormal LFT Recommendation EGD scheduled tomorrow to evaluate duo-brennen fistula and melena. - NPO @ Nd. - hold all blood thinners tonight diet per surgery abx surgical f/u check tumor markers will follow with additional recommendations post procedure The patient was seen and examined at bedside and all new and available data was reviewed in the patients chart. I agree with the above findings, impression and plan. (Patient seen earlier today. Signature stamp does not reflect patient encounter time.). - Panda Friedman MD Subjective Subjective limited Objective Last 24 Hour Vital Signs Date Time Temp Pulse Resp B/P (MAP) Pulse Ox O2 Delivery O2 Flow Rate FiO2 03/31/19 08:25 74 138/61 03/31/19 08:00 98.0 74 19 138/61 (86) 74 03/31/19 04:00 98.3 70 16 141/53 (82) 70 03/31/19 00:00 98.1 74 20 129/70 (89) 03/30/19 21:00 Room Air 03/30/19 20:00 97.8 80 18 133/52 (79) 03/30/19 16:00 98.4 85 21 149/65 (93) 97 Intake and Output 03/30/19 03/31/19 19:00 07:00 Intake Total 480 ml 240 ml Balance 480 ml 240 ml Intake Oral 480 ml 240 ml Laboratory Tests Test 03/31/19 05:55 White Blood Count 6.7 K/UL (4.8-10.8) Red Blood Count 3.20 M/UL (4.20-5.40) L Hemoglobin 8.9 G/DL (12.0-16.0) L Hematocrit 27.9 % (37.0-47.0) L Mean Corpuscular Volume 87 FL (80-99) Mean Corpuscular Hemoglobin 27.9 PG (27.0-31.0) Mean Corpuscular Hemoglobin Concent 32.0 G/DL (32.0-36.0) Red Cell Distribution Width 13.0 % (11.6-14.8) Platelet Count 427 K/UL (150-450) Mean Platelet Volume 4.8 FL (6.5-10.1) L Neutrophils (%) (Auto) 56.2 % (45.0-75.0) Lymphocytes (%) (Auto) 25.3 % (20.0-45.0) Monocytes (%) (Auto) 14.5 % (1.0-10.0) H Eosinophils (%) (Auto) 2.8 % (0.0-3.0) Basophils (%) (Auto) 1.2 % (0.0-2.0) Erythrocyte Sedimentation Rate 52 MM/HR (0-30) H Prothrombin Time 10.0 SEC (9.30-11.50) Prothromb Time International Ratio 0.9 (0.9-1.1) Activated Partial Thromboplast Time 29 SEC (23-33) Sodium Level 140 MMOL/L (136-145) Potassium Level 3.6 MMOL/L (3.5-5.1) Chloride Level 104 MMOL/L (98-107) Carbon Dioxide Level 30 MMOL/L (21-32) Anion Gap 6 mmol/L (5-15) Blood Urea Nitrogen 5 mg/dL (7-18) L Creatinine 0.7 MG/DL (0.55-1.30) Estimat Glomerular Filtration Rate mL/min (>60) Glucose Level 104 MG/DL (74-106) Calcium Level 9.1 MG/DL (8.5-10.1) Total Bilirubin 0.3 MG/DL (0.2-1.0) Aspartate Amino Transf (AST/SGOT) 76 U/L (15-37) H Alanine Aminotransferase (ALT/SGPT) 199 U/L (12-78) H Alkaline Phosphatase 225 U/L (46-116) H C-Reactive Protein, Quantitative < 0.4 mg/dL (0.00-0.90) Total Protein 6.4 G/DL (6.4-8.2) Albumin 2.6 G/DL (3.4-5.0) L Globulin 3.8 g/dL Albumin/Globulin Ratio 0.7 (1.0-2.7) L Amylase Level 59 U/L (25-115) Lipase 227 U/L (73-393) Height (Feet): 4 Height (Inches): 3.00 Weight (Pounds): 95 General Appearance: no apparent distress Cardiovascular: normal rate Respiratory/Chest: normal breath sounds, no respiratory distress Abdominal Exam: normal bowel sounds, non tender, soft Extremities: normal range of motion, non-tender David Vieira NP Mar 31, 2019 12:37
[2019-03-31] MEDS ORDERED: Varibar Pudding 230ml MC PRN (12:45)
[2019-03-31] MEDS ORDERED: Varibar Nectar 240ml MC PRN (12:45)
[2019-03-31] MEDS ORDERED: Varibar Honey 250ml MC PRN (12:45)
--- NOTE | 2019-03-31 13:12 | Surgery Progress Note ---
Surgery Progress Note Subjective Additional Comments Patient seen and examined bedside. No acute events. States she is feeling well. Intermittently does have some discomfort in the upper abdomen. Tolerating diet. Still having black stool. Spoke with GI in regards to case and considerations for endoscopy and colonoscopy Objective Last 24 Hour Vital Signs Date Time Temp Pulse Resp B/P (MAP) Pulse Ox O2 Delivery O2 Flow Rate FiO2 03/31/19 08:25 74 138/61 03/31/19 08:00 98.0 74 19 138/61 (86) 74 03/31/19 04:00 98.3 70 16 141/53 (82) 70 03/31/19 00:00 98.1 74 20 129/70 (89) 03/30/19 21:00 Room Air 03/30/19 20:00 97.8 80 18 133/52 (79) 03/30/19 16:00 98.4 85 21 149/65 (93) 97 I&O Intake and Output 03/30/19 03/31/19 18:59 06:59 Intake Total 480 ml 240 ml Balance 480 ml 240 ml Intake Oral 480 ml 240 ml Cardiovascular: RSR Respiratory: clear Abdomen: soft, flat, non-tender, present bowel sounds, non-distended Extremities: no edema, no tenderness, no cyanosis Laboratory Tests Test 03/31/19 05:55 White Blood Count 6.7 K/UL (4.8-10.8) Red Blood Count 3.20 M/UL (4.20-5.40) L Hemoglobin 8.9 G/DL (12.0-16.0) L Hematocrit 27.9 % (37.0-47.0) L Mean Corpuscular Volume 87 FL (80-99) Mean Corpuscular Hemoglobin 27.9 PG (27.0-31.0) Mean Corpuscular Hemoglobin Concent 32.0 G/DL (32.0-36.0) Red Cell Distribution Width 13.0 % (11.6-14.8) Platelet Count 427 K/UL (150-450) Mean Platelet Volume 4.8 FL (6.5-10.1) L Neutrophils (%) (Auto) 56.2 % (45.0-75.0) Lymphocytes (%) (Auto) 25.3 % (20.0-45.0) Monocytes (%) (Auto) 14.5 % (1.0-10.0) H Eosinophils (%) (Auto) 2.8 % (0.0-3.0) Basophils (%) (Auto) 1.2 % (0.0-2.0) Erythrocyte Sedimentation Rate 52 MM/HR (0-30) H Prothrombin Time 10.0 SEC (9.30-11.50) Prothromb Time International Ratio 0.9 (0.9-1.1) Activated Partial Thromboplast Time 29 SEC (23-33) Sodium Level 140 MMOL/L (136-145) Potassium Level 3.6 MMOL/L (3.5-5.1) Chloride Level 104 MMOL/L (98-107) Carbon Dioxide Level 30 MMOL/L (21-32) Anion Gap 6 mmol/L (5-15) Blood Urea Nitrogen 5 mg/dL (7-18) L Creatinine 0.7 MG/DL (0.55-1.30) Estimat Glomerular Filtration Rate mL/min (>60) Glucose Level 104 MG/DL (74-106) Calcium Level 9.1 MG/DL (8.5-10.1) Total Bilirubin 0.3 MG/DL (0.2-1.0) Aspartate Amino Transf (AST/SGOT) 76 U/L (15-37) H Alanine Aminotransferase (ALT/SGPT) 199 U/L (12-78) H Alkaline Phosphatase 225 U/L (46-116) H C-Reactive Protein, Quantitative < 0.4 mg/dL (0.00-0.90) Total Protein 6.4 G/DL (6.4-8.2) Albumin 2.6 G/DL (3.4-5.0) L Globulin 3.8 g/dL Albumin/Globulin Ratio 0.7 (1.0-2.7) L Amylase Level 59 U/L (25-115) Lipase 227 U/L (73-393) Plan Problems: (1) Cholecystitis Assessment & Plan: Improving labs improved pain improved diet cont with medical management HIDA results concerning CT demonstrates a 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 There does appear to be some radiotracer filling the extremely distorted gallbladder, but this could be from the bowel connection, rather than the cystic duct. will need to review studies with radiologist first when they are available. she has giant stones, choleduo fistula, and current presentation.once radiology reviewed will formulate a care plan for surgical intervention Findings: The gallbladder is severely distended with wall thickening secondary to very large stones within the lumen. For example one of the stones measures about 6 x 3 cm. There is another stone and measures 2.7 cm. Cholecystitis is suspected. Biliary ducts are mildly prominent. The sigmoid colon appears abnormal. There are diverticula with ill-definition of the wall and slight thickening of the wall. Diverticulitis is not excluded and should be considered as well. There is an umbilical hernia containing fat. Bowel gas pattern is nonobstructive appendix is probably seen partially and unremarkable as such. The aorta and iliac arteries are tortuous moderately calcified. Bladder is nondistended. There is no ascites. There is no hydronephrosis, adrenal mass or splenomegaly. Pancreas is unremarkable. There is a hiatal hernia. Minimal streaky atelectasis versus scarring at the lung bases noted. There is narrowing of intervertebral discs and accompanying endplate osteophyte formation. Hypertrophied facet joints also demonstrated. Uterus is not seen. IMPRESSION: Severe distention of the gallbladder, wall thickening, secondary to a large intraluminal gallstones. Cholecystitis is suspected. Correlate clinically. Suspected diverticulitis in the sigmoid region with wall thickening and mild perisigmoid inflammation with multiple diverticula in the sigmoid colon and elsewhere in the colon. No abscess. 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 Sonographic Florez's is negative per technologist. The liver is unremarkable. Doppler interrogation of the main portal vein shows patency with hepatopedal, monophasic flow. There is no biliary ductal dilatation identified. The demonstrated part of the pancreas, aorta and IVC show no definite abnormalities. Both kidneys appear unremarkable. There is no hydronephrosis. IMPRESSION: Cholelithiasis Had a long discussion today at the bedside with the patient and her son. States that there is no other family insisted to them. I discussed with them the CT HIDA scan and ultrasound findings in detail. I discussed with them the concerns for a gallbladder enteric fistula and the potential of gallstone ileus and her large car stones and the inflammation identified on the CT and these findings. We discussed how she is significantly improved and currently asymptomatic and recovering well. We discussed her age her medical comorbidities and her overall condition. I asked the patient and her son to consider her options of possible surgical versus nonsurgical intervention. I explained to him that given these findings that were discovered on her imaging that if she does truly have a fistula between the gallbladder and the duodenum with these large stones and her bladder findings there is potential for possible insult in the future which could be concerning. I explained to him that there is consideration for surgical intervention with cholecystectomy and if necessary division/repair of the fistula. I explained to him that this will likely be a major surgery and would require open surgery rather than laparoscopic and does have potential morbidity and even chance of mortality. Patient's son seem to understand. I explained to him currently she is doing well we will advance her diet and continue the antibiotics and medical management of her acute event. If they do decide to proceed with surgery I will discuss with them the appropriate timing of doing so. (3) Diverticulitis Assessment & Plan: medical management (4) Elevated liver enzymes Assessment & Plan: hep panel labs trend will monitor (5) Failure to thrive in adult Assessment & Plan: diet as tolerated Additional Comments GI for possible endoscopy and colonoscopy to evaluate possible fistula as well as etiology of potential melena. New HIDA results noted with cystic duct obstruction. Will need to discuss with family considerations for cholecystectomy Alexandro Perez Mar 31, 2019 13:12
--- NOTE | 2019-03-31 13:21 | NUR ---
SWALLOW/SPEECH THERAPY NOTE: COMPLETED MODIFIED BARIUM SWALLOW STUDY, SEE FULL REPORT TO FOLLOW. INITIAL IMPRESSIONS: MILD OROPHARYGEAL DYSPHAGIA WITH MILD INCREASE IN OROPHARYNGEAL TRANSIT TIMES DUE TO SENSORIMOTOR DEFICITS AND MAY BE COMPOUNDED BY SOME XEROSTOMIA WITH DRYER CONSISTENCIES. MILD SWALLOW DELAY, LATE CLOSURE OF LARYNGEAL VESTIBULE, AND MILD OROPHARYNGEAL DYSMOTILITY NOTED. NO ASPIRATION NOR SIGNIFICANT LARYNGEAL PENETRATION. TRACE SILENT PENETRATION ABOVE THE VOCAL FOLDS WITH EJECTION ONLY SEEN WITH THIN LIQUIDS SEQUENTIAL STRAW SIPS DUE TO DELAYED SWALLOW AND LATE CLOSURE OF LARYNGEAL VESTIBULE. HAS SIGNIFICANT ESOPHAGEAL DYSPHAGIA CHARACTERIZED BY ESOPHAGEAL RETROGRAD BACKFLOW BELOW THE PHARYNGOESOPHAGEAL SEGMENT OPENING WITH THIN AND NECTAR LIQUIDS (MORE SIGNIFICANT WITH STRAW SEQUENTIAL SIPS) WITH 3/4 OF MASTICATED SOLID BOLUS RETENTION MID CHEST (MIN CLEARANCE) AND NEEDED 2 THIN LIQUID (WATER) WASHES TO CLEAR. SOME BARIUM LEAKAGE OUTSIDE OF ESOPHAGUS (CHECK WITH RADIOLOGIST ? FISTULA OR DR WALLACE ? DIVERTICULUM) NOTED THAT SLOWLY DRAINED OUT AFTER LIQUID WASH AND MORE TIME. (CLINICALLY, PT HAS C/O OF SOME MASTICATED SOLIDS BACKING UP TO HER PHARYNGEAL/THROAT AREA). TRIAL TX: NEEDS TO DRINK 2 LIQUID WASHES AFTER SOLIDS, SOME SIPS/BITES, MOISTEN FOOD (HAS XEROSTOMIA), MORE TIME, SMALL FREQUENT MEALS. RECOMMENDATIONS: CONTINUE WITH CURRENT BLU CCHO-MED (?BLAND HAS GERD MEDS) REG TEXTURE DIET (SMALL BITES) AND THIN LIQUIDS WITH POSTED ASPIRATION/REFLUX PRECAUTIONS WITH SUPERVISION PRN. SEND GLUCERNA TID AND CONSIDER APPETITE STIMULANT GI F/UP REGARDING ESOPHAGEAL DYSPHAGIA AND FURTHER EXAMS INDICATED SKILLED DYSPHAGIA MANAGEMENT AND TX D/W DR WALLACE, RN EDITH, RADIOLOGIST DR ELLIS, AND PATIENT
--- NOTE | 2019-03-31 13:57 | NUR ---
CASE MANAGEMENT:REVIEW 03/31/19 SI: DIVERTICULITIS. ACUTE CHOLECYSTITIS. CHOLELITHIASIS HIDA(+) DUODENAL FISTULA 98.0 74 19 138/61 97% ON RA H/H-8.9/27.9 AST/ALT+76/199 IS:IV ZOSYN Q12 PROTONIX PO Q12 NORVASC PO QD HEPARIN SQ Q12 : MED/SURG STATUS 4 EAS PLAN: ONCE RADIOLOGY REVIEWED BY SURGEON CARE PLAN FOR SURGICAL INTERVENTION WILL BE FORMULATED
[2019-03-31 16:00] VITALS: BP 136/58
--- NOTE | 2019-03-31 18:55 | Internal Med Progress Note ---
Subjective Date of Service: Mar 31, 2019 Physician Name Isaías Atwood Attending Physician Logan Camargo MD Current Medications Medications (Trade) Dose Ordered Sig/Lora Route PRN Reason Start Time Stop Time Status Last Admin Dose Admin Acetaminophen (Tylenol) 650 mg Q4H PRN ORAL fever 03/27/19 13:30 04/26/19 13:29 Amlodipine Besylate (Norvasc) 5 mg DAILY ORAL 03/28/19 09:00 04/27/19 08:59 03/31/19 08:25 Barium Sulfate (Varibar Honey) 250 ml NOW PRN MC RAD 03/31/19 12:45 04/03/19 12:39 Barium Sulfate (Varibar [place]) 240 ml NOW PRN MC RAD 03/31/19 12:45 04/03/19 12:39 Barium Sulfate (Varibar Pudding) 230 ml NOW PRN MC RAD 03/31/19 12:45 04/03/19 12:39 Dextrose (Dextrose 50%) 25 ml Q30M PRN IV Hypoglycemia 03/27/19 13:30 04/26/19 13:29 Dextrose (Dextrose 50%) 50 ml Q30M PRN IV Hypoglycemia 03/27/19 13:30 04/26/19 13:29 Heparin Sodium (Porcine) (Heparin 5000 units/ml) 5,000 units EVERY 12 HOURS SUBQ 03/27/19 21:00 04/26/19 20:59 03/31/19 08:13 Insulin Aspart (NovoLOG) BEFORE MEALS AND HS SUBQ 03/27/19 16:30 04/26/19 16:29 03/30/19 21:23 Lorazepam (Ativan 2mg/ml 1ml) 0.5 mg Q4H PRN IV For Anxiety 03/27/19 13:30 04/03/19 13:29 Memantine (Namenda) 5 mg DAILY ORAL 03/28/19 09:00 04/27/19 08:59 03/31/19 08:12 Morphine Sulfate (Morphine Sulfate) 1 mg Q4H PRN IVP For Pain 03/27/19 13:30 04/03/19 13:29 Ondansetron HCl (Zofran) 4 mg Q6H PRN IVP Nausea & Vomiting 03/27/19 13:30 04/26/19 13:29 Pantoprazole (Protonix) 40 mg EVERY 12 HOURS ORAL 03/28/19 21:00 04/27/19 20:59 03/31/19 08:11 Piperacillin Sod/ Tazobactam Sod 3.375 gm/Sodium Chloride 110 ml @ 27.5 mls/hr Q12H IVPB 03/28/19 12:00 04/04/19 11:59 03/31/19 13:26 Polyethylene Glycol (Miralax) 17 gm HSPRN PRN ORAL Constipation 03/27/19 13:30 04/26/19 13:29 Pravastatin Sodium (Pravachol) 20 mg BEDTIME ORAL 03/27/19 21:00 04/26/19 20:59 03/30/19 21:16 Zolpidem Tartrate (Ambien) 5 mg HSPRN PRN ORAL Insomnia 03/27/19 13:30 04/03/19 13:29 Allergies: Coded Allergies: No Known Allergies (Unverified , 04/03/17) ROS Limited/Unobtainable: No Constitutional: Reports: no symptoms HEENT: Reports: no symptoms Cardiovascular: Reports: no symptoms Respiratory: Reports: no symptoms Gastrointestinal/Abdominal: Reports: abdominal pain Genitourinary: Reports: no symptoms Neurologic/Psychiatric: Reports: no symptoms Subjective 83 YO F admitted with right upper quadrant pain. Now acute cholecystitis and cholelithiasis. Cover for Int Marcelo-Dr Camargo Objective Last Vital Signs Date Time Temp Pulse Resp B/P (MAP) Pulse Ox O2 Delivery O2 Flow Rate FiO2 03/31/19 12:00 97.5 74 18 141/68 (92) 96 74 03/31/19 09:00 Room Air Laboratory Tests Test 03/31/19 05:55 White Blood Count 6.7 K/UL (4.8-10.8) Red Blood Count 3.20 M/UL (4.20-5.40) L Hemoglobin 8.9 G/DL (12.0-16.0) L Hematocrit 27.9 % (37.0-47.0) L Mean Corpuscular Volume 87 FL (80-99) Mean Corpuscular Hemoglobin 27.9 PG (27.0-31.0) Mean Corpuscular Hemoglobin Concent 32.0 G/DL (32.0-36.0) Red Cell Distribution Width 13.0 % (11.6-14.8) Platelet Count 427 K/UL (150-450) Mean Platelet Volume 4.8 FL (6.5-10.1) L Neutrophils (%) (Auto) 56.2 % (45.0-75.0) Lymphocytes (%) (Auto) 25.3 % (20.0-45.0) Monocytes (%) (Auto) 14.5 % (1.0-10.0) H Eosinophils (%) (Auto) 2.8 % (0.0-3.0) Basophils (%) (Auto) 1.2 % (0.0-2.0) Erythrocyte Sedimentation Rate 52 MM/HR (0-30) H Prothrombin Time 10.0 SEC (9.30-11.50) Prothromb Time International Ratio 0.9 (0.9-1.1) Activated Partial Thromboplast Time 29 SEC (23-33) Sodium Level 140 MMOL/L (136-145) Potassium Level 3.6 MMOL/L (3.5-5.1) Chloride Level 104 MMOL/L (98-107) Carbon Dioxide Level 30 MMOL/L (21-32) Anion Gap 6 mmol/L (5-15) Blood Urea Nitrogen 5 mg/dL (7-18) L Creatinine 0.7 MG/DL (0.55-1.30) Estimat Glomerular Filtration Rate mL/min (>60) Glucose Level 104 MG/DL (74-106) Calcium Level 9.1 MG/DL (8.5-10.1) Total Bilirubin 0.3 MG/DL (0.2-1.0) Aspartate Amino Transf (AST/SGOT) 76 U/L (15-37) H Alanine Aminotransferase (ALT/SGPT) 199 U/L (12-78) H Alkaline Phosphatase 225 U/L (46-116) H C-Reactive Protein, Quantitative < 0.4 mg/dL (0.00-0.90) Total Protein 6.4 G/DL (6.4-8.2) Albumin 2.6 G/DL (3.4-5.0) L Globulin 3.8 g/dL Albumin/Globulin Ratio 0.7 (1.0-2.7) L Amylase Level 59 U/L (25-115) Lipase 227 U/L (73-393) Intake and Output 03/30/19 03/31/19 19:00 07:00 Intake Total 480 ml 240 ml Balance 480 ml 240 ml Intake Oral 480 ml 240 ml Objective PHYSICAL EXAMINATION: GENERAL: The patient is a well-developed and well-nourished female, in no apparent distress. HEENT: Eyes, pupils are equal and responsive to light and accommodation. Extraocular movements are intact. NECK: Supple without lymphadenopathy. CHEST: Lungs are clear to auscultation bilaterally without wheezes or rales. CARDIOVASCULAR: Regular rhythm and rate. S1, S2 normal without murmurs, rubs, or gallops. ABDOMEN: Soft, nondistended with decreased bowel sounds. There is pain to palpation to right upper quadrant. No evidence of rebound or guarding noted. EXTREMITIES: Negative for clubbing, cyanosis, or edema. RECTAL/GENITAL: Not performed. NEUROLOGIC: Cranial nerves II through XII are grossly intact without focal deficits. Motor strength is 5/5 bilaterally. Deep tendon reflexes are 2+ plantar. Assessment/Plan Assessment/Plan ASSESSMENT: This is an 83-year-old female with: 1. Right upper quadrant pain. 2. Acute cholecystitis. 3. Cholelithiasis. 4. Elevated liver function tests. 5. Diverticulitis. 6. Diabetes type 2. 7. Hypertension. 8. Hypercholesterolemia. 9. Asthma. 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 Occult pos stool TREATMENT: 1. Right upper quadrant pain/diverticulitis. A Gastroenterology consultation has been obtained with Dr. Panda Friedman. 2. Acute cholecystitis/cholelithiasis. 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 A General Surgery consultation has been obtained with Dr. Perez. The patient has been started empirically on intravenous ciprofloxacin and metronidazole. Surgery date is pending 3. Elevated liver function tests. Improving. As above, a Gastroenterology consultation has been obtained with Dr. Panda Friedman. Possible colonoscopy and endoscopy for occult blood source 4. Diabetes type 2. The patient has been placed on NovoLog sliding scale. 5. Hypertension. The patient is currently hypotensive. Hold amlodipine above. 6. Hypercholesterolemia. Continue simvastatin 20 mg p.o. daily. 7. Asthma. Isaías Atwood MD Mar 31, 2019 18:55
[2019-03-31 20:00] VITALS: BP 152/94
--- NOTE | 2019-03-31 20:00 | NUR ---
NURSE NOTES: Received pt and report from DIMITRIOS Tolbert. Observed pt resting in bed with both eyes closed; arousable to voice. Pt is A/O x4. IV site intact, asymptomatic, and patent. Bed is in the lowest position and locked. Call light within reach. No signs/symptoms of acute distress noted at this time. Will continue plan of care.
--- NOTE | 2019-03-31 20:14 | NUR ---
HAND-OFF: Report given to RN My Daysi.
--- NOTE | 2019-03-31 20:23 | Infectious Diseases Prog Note ---
Assessment/Plan Assessment/Plan Assessment/Plan 83 yo female with PMHx of DM, HTN and Asthma who presented to the ED on 03/27/19 with 4 days of abdominal pain. Probable cholecystitis (? fistula) CT abd 03/27/19 - Severe distention of the gallbladder, wall thickening, secondary to a large intraluminal gallstones. Cholecystitis is suspected. Correlate clinically. 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 There does appear to be some radiotracer filling the extremely distorted gallbladder, but this could be from the bowel connection, rather than the cystic duct. Leukocytosis - resolved No Fever DM HTN HLD Asthma Arthritis PLAN - Continue Zosyn # 4/10 - f/u Surgery recs - - Monitor CBC and temps . Subjective Allergies: Coded Allergies: No Known Allergies (Unverified , 04/03/17) Subjective afebrile Objective Vital Signs Last 24 Hour Vital Signs Date Time Temp Pulse Resp B/P (MAP) Pulse Ox O2 Delivery O2 Flow Rate FiO2 03/31/19 16:00 98.6 73 17 136/58 (84) 97 73 03/31/19 12:00 97.5 74 18 141/68 (92) 96 74 03/31/19 09:00 Room Air 03/31/19 08:25 74 138/61 03/31/19 08:00 98.0 74 19 138/61 (86) 74 03/31/19 04:00 98.3 70 16 141/53 (82) 70 03/31/19 00:00 98.1 74 20 129/70 (89) 03/30/19 21:00 Room Air Height (Feet): 4 Height (Inches): 3.00 Weight (Pounds): 95 HEENT: anicteric Respiratory/Chest: no respiratory distress Cardiovascular: regular rhythm Abdomen: no organomegaly Laboratory Tests Test 03/31/19 05:55 White Blood Count 6.7 K/UL (4.8-10.8) Red Blood Count 3.20 M/UL (4.20-5.40) L Hemoglobin 8.9 G/DL (12.0-16.0) L Hematocrit 27.9 % (37.0-47.0) L Mean Corpuscular Volume 87 FL (80-99) Mean Corpuscular Hemoglobin 27.9 PG (27.0-31.0) Mean Corpuscular Hemoglobin Concent 32.0 G/DL (32.0-36.0) Red Cell Distribution Width 13.0 % (11.6-14.8) Platelet Count 427 K/UL (150-450) Mean Platelet Volume 4.8 FL (6.5-10.1) L Neutrophils (%) (Auto) 56.2 % (45.0-75.0) Lymphocytes (%) (Auto) 25.3 % (20.0-45.0) Monocytes (%) (Auto) 14.5 % (1.0-10.0) H Eosinophils (%) (Auto) 2.8 % (0.0-3.0) Basophils (%) (Auto) 1.2 % (0.0-2.0) Erythrocyte Sedimentation Rate 52 MM/HR (0-30) H Prothrombin Time 10.0 SEC (9.30-11.50) Prothromb Time International Ratio 0.9 (0.9-1.1) Activated Partial Thromboplast Time 29 SEC (23-33) Sodium Level 140 MMOL/L (136-145) Potassium Level 3.6 MMOL/L (3.5-5.1) Chloride Level 104 MMOL/L (98-107) Carbon Dioxide Level 30 MMOL/L (21-32) Anion Gap 6 mmol/L (5-15) Blood Urea Nitrogen 5 mg/dL (7-18) L Creatinine 0.7 MG/DL (0.55-1.30) Estimat Glomerular Filtration Rate mL/min (>60) Glucose Level 104 MG/DL (74-106) Calcium Level 9.1 MG/DL (8.5-10.1) Total Bilirubin 0.3 MG/DL (0.2-1.0) Aspartate Amino Transf (AST/SGOT) 76 U/L (15-37) H Alanine Aminotransferase (ALT/SGPT) 199 U/L (12-78) H Alkaline Phosphatase 225 U/L (46-116) H C-Reactive Protein, Quantitative < 0.4 mg/dL (0.00-0.90) Total Protein 6.4 G/DL (6.4-8.2) Albumin 2.6 G/DL (3.4-5.0) L Globulin 3.8 g/dL Albumin/Globulin Ratio 0.7 (1.0-2.7) L Amylase Level 59 U/L (25-115) Lipase 227 U/L (73-393) Current Medications Medications (Trade) Dose Ordered Sig/Lora Route PRN Reason Start Time Stop Time Status Last Admin Dose Admin Acetaminophen (Tylenol) 650 mg Q4H PRN ORAL fever 03/27/19 13:30 04/26/19 13:29 Amlodipine Besylate (Norvasc) 5 mg DAILY ORAL 03/28/19 09:00 04/27/19 08:59 03/31/19 08:25 Barium Sulfate (Varibar Honey) 250 ml NOW PRN MC RAD 03/31/19 12:45 04/03/19 12:39 Barium Sulfate (Varibar [place]) 240 ml NOW PRN MC RAD 03/31/19 12:45 04/03/19 12:39 Barium Sulfate (Varibar Pudding) 230 ml NOW PRN MC RAD 03/31/19 12:45 04/03/19 12:39 Dextrose (Dextrose 50%) 25 ml Q30M PRN IV Hypoglycemia 03/27/19 13:30 04/26/19 13:29 Dextrose (Dextrose 50%) 50 ml Q30M PRN IV Hypoglycemia 03/27/19 13:30 04/26/19 13:29 Heparin Sodium (Porcine) (Heparin 5000 units/ml) 5,000 units EVERY 12 HOURS SUBQ 03/27/19 21:00 04/26/19 20:59 03/31/19 08:13 Insulin Aspart (NovoLOG) BEFORE MEALS AND HS SUBQ 03/27/19 16:30 04/26/19 16:29 03/30/19 21:23 Lorazepam (Ativan 2mg/ml 1ml) 0.5 mg Q4H PRN IV For Anxiety 03/27/19 13:30 04/03/19 13:29 Memantine (Namenda) 5 mg DAILY ORAL 03/28/19 09:00 04/27/19 08:59 03/31/19 08:12 Morphine Sulfate (Morphine Sulfate) 1 mg Q4H PRN IVP For Pain 03/27/19 13:30 04/03/19 13:29 Ondansetron HCl (Zofran) 4 mg Q6H PRN IVP Nausea & Vomiting 03/27/19 13:30 04/26/19 13:29 Pantoprazole (Protonix) 40 mg EVERY 12 HOURS ORAL 03/28/19 21:00 04/27/19 20:59 03/31/19 08:11 Piperacillin Sod/ Tazobactam Sod 3.375 gm/Sodium Chloride 110 ml @ 27.5 mls/hr Q12H IVPB 03/28/19 12:00 04/04/19 11:59 03/31/19 13:26 Polyethylene Glycol (Miralax) 17 gm HSPRN PRN ORAL Constipation 03/27/19 13:30 04/26/19 13:29 Pravastatin Sodium (Pravachol) 20 mg BEDTIME ORAL 03/27/19 21:00 04/26/19 20:59 03/30/19 21:16 Zolpidem Tartrate (Ambien) 5 mg HSPRN PRN ORAL Insomnia 03/27/19 13:30 04/03/19 13:29 Maksim Davis MD Mar 31, 2019 20:22
[2019-04-01] VITALS (12 sets, daily range): BP systolic 128–154; BP diastolic 51–90
[2019-04-01 04:54] LABS: EOSINOPHILS % (AUTO) 2.1 % (0.0-3.0); HEMATOCRIT 29.1 % (37.0-47.0); HEMOGLOBIN 9.3 G/DL (12.0-16.0); LYMPHOCYTES % (AUTO) 23.6 % (20.0-45.0); MEAN CORPUSCULAR VOLUME 87 FL (80-99); MONOCYTES % (AUTO) 12.8 % (1.0-10.0); NEUTROPHILS % (AUTO) 60.5 % (45.0-75.0); PLATELET COUNT 447 K/UL (150-450); RED BLOOD COUNT 3.34 M/UL (4.20-5.40); RED CELL DISTRIBUTION WIDTH 13.2 % (11.6-14.8); WHITE BLOOD COUNT 8.1 K/UL (4.8-10.8)
[2019-04-01 04:58] LABS: ANION GAP 7 mmol/L (5-15); BLOOD UREA NITROGEN 6 mg/dL (7-18); CALCIUM 8.9 MG/DL (8.5-10.1); CARBON DIOXIDE 31 MMOL/L (21-32); CHLORIDE 100 MMOL/L (98-107); CREATININE 0.7 MG/DL (0.55-1.30); POTASSIUM 3.2 MMOL/L (3.5-5.1); SODIUM 138 MMOL/L (136-145)
[2019-04-01 05:03] LABS: INR 0.9 (0.9-1.1)
[2019-04-01 05:23] LABS: ALANINE AMINOTRANSFERASE 146 U/L (12-78); ALBUMIN 2.7 G/DL (3.4-5.0); ALKALINE PHOSPHATASE 201 U/L (46-116); ASPARTATE AMINO TRANSFERASE 46 U/L (15-37); BILIRUBIN,DIRECT 0.1 MG/DL (0.0-0.3); BILIRUBIN,TOTAL 0.3 MG/DL (0.2-1.0)
--- NOTE | 2019-04-01 05:58 | NUR ---
NURSE NOTES: Contacted Dr. Eli and Flight Operations EngineerClovis regarding potassium of 3.2 this morning. Awaiting call back.
[2019-04-01] MEDS: NovoLOG Insulin Flexpen SUBQ SCH ×4 (06:26→22:16)
--- NOTE | 2019-04-01 06:54 | NUR ---
NURSE NOTES: Received orders from Dr. Eli. Will note and carry out.
--- NOTE | 2019-04-01 07:52 | NUR ---
HAND-OFF: Report given to DIMITRIOS Rodas.
--- NOTE | 2019-04-01 07:56 | NUR ---
NURSE NOTES: Patient is awake, alert x4; [place] speaking; IV Right AC 20G flushes well; NPO for EGD scheduled today; Consent on file for EGD; sign posted and patient and production administrative assistant is aware that patient is NPO; patient ambulatory; side rails up x2, breaks engaged; call light within reach; bed at lowest position; will keep monitoring.
[2019-04-01] MEDS: Memantine 5 MG TAB ORAL SCH (08:44)
[2019-04-01] MEDS: Heparin 5000 units/ml inj SUBQ SCH ×2 (08:44→20:43)
--- NOTE | 2019-04-01 10:00 | NUR ---
NURSE NOTES: I called GI lab to find out what time they gonna do the EGD; GI lab said around 1130 they gonna pick her up; since MD Friedman wont be available before that; I told GI lab that patient is diabetic and since last night.
--- NOTE | 2019-04-01 10:42 | Anethesia Preoperative Eval ---
Anesthesia Pre-op PMH/ROS General Date of Evaluation: Apr 01, 2019 Time of Evaluation: 10:39 Anesthesiologist: joseph ASA Score: ASA 4 Mallampati Score Class I : Soft palate, uvula, fauces, pillars visible Class II: Soft palate, uvula, fauces visible Class III: Soft palate, base of uvula visible Class IV: Only hard plate visible Mallampati Classification: Class II Surgeon: donovan Diagnosis: cholecystoduodenal fistula Surgical Procedure: egd Anesthesia History: none Social History: smoking - nonsmoker Family History: no anesthesia problems Allergies: Coded Allergies: No Known Allergies (Unverified , 04/03/17) Medications: see eMAR Patient NPO?: Yes Past Medical History Cardiovascular: Reports: HTN Pulmonary: Reports: asthma Gastrointestinal/Genitourinary: Reports: other - cholecystitis, cholecystoduodenal fistula, hepatitis, elevated liver enzymes, diverticulitis Endocrine: Reports: DM Musculoskeletal/Integumentary: Reports: OA, other - achilles tendonitis Anesthesia Pre-op Phys. Exam Physician Exam Last Vital Signs Date Time Temp Pulse Resp B/P (MAP) Pulse Ox O2 Delivery O2 Flow Rate FiO2 04/01/19 09:00 Room Air 04/01/19 08:43 68 132/51 04/01/19 08:00 98.9 20 97 Constitutional: NAD Neurologic: CN 2-12 intact Cardiovascular: RRR Respiratory: CTA Gastrointestinal: S/NT/ND Airway Exam Mallampati Score: Class II MO: limited Neck: flexible TMD: 2fb ROM: limited Teeth: missing Dentures: upper Anesthesia Pre-op A/P Labs Hematology Test 04/01/19 04:05 White Blood Count 8.1 K/UL (4.8-10.8) Red Blood Count 3.34 M/UL (4.20-5.40) L Hemoglobin 9.3 G/DL (12.0-16.0) L Hematocrit 29.1 % (37.0-47.0) L Mean Corpuscular Volume 87 FL (80-99) Mean Corpuscular Hemoglobin 28.0 PG (27.0-31.0) Mean Corpuscular Hemoglobin Concent 32.1 G/DL (32.0-36.0) Red Cell Distribution Width 13.2 % (11.6-14.8) Platelet Count 447 K/UL (150-450) Mean Platelet Volume 4.9 FL (6.5-10.1) L Neutrophils (%) (Auto) 60.5 % (45.0-75.0) Lymphocytes (%) (Auto) 23.6 % (20.0-45.0) Monocytes (%) (Auto) 12.8 % (1.0-10.0) H Eosinophils (%) (Auto) 2.1 % (0.0-3.0) Basophils (%) (Auto) 1.0 % (0.0-2.0) Coagulation Test 04/01/19 04:05 Prothrombin Time 10.0 SEC (9.30-11.50) Prothromb Time International Ratio 0.9 (0.9-1.1) Activated Partial Thromboplast Time 25 SEC (23-33) Chemistry Test 04/01/19 04:05 Sodium Level 138 MMOL/L (136-145) Potassium Level 3.2 MMOL/L (3.5-5.1) L Chloride Level 100 MMOL/L (98-107) Carbon Dioxide Level 31 MMOL/L (21-32) Anion Gap 7 mmol/L (5-15) Blood Urea Nitrogen 6 mg/dL (7-18) L Creatinine 0.7 MG/DL (0.55-1.30) Estimat Glomerular Filtration Rate mL/min (>60) Glucose Level 110 MG/DL (74-106) H Calcium Level 8.9 MG/DL (8.5-10.1) Total Bilirubin 0.3 MG/DL (0.2-1.0) Direct Bilirubin 0.1 MG/DL (0.0-0.3) Aspartate Amino Transf (AST/SGOT) 46 U/L (15-37) H Alanine Aminotransferase (ALT/SGPT) 146 U/L (12-78) H Alkaline Phosphatase 201 U/L (46-116) H Total Protein 6.6 G/DL (6.4-8.2) Albumin 2.7 G/DL (3.4-5.0) L Risk Assessment & Plan Assessment: asa4 Plan: mac Status Change Before Surgery: No Pre-Antibiotics Drug: Rebecca Wan MD Apr 01, 2019 10:42
[2019-04-01] MEDS ORDERED: fentaNYL 100 mcg/2 mL IV PRN (10:45)
[2019-04-01] MEDS ORDERED: Atropine Inj 1mg/10ml Syr IV PRN (10:45)
[2019-04-01] MEDS ORDERED: Midazolam 2mg/2ml Inj IVP PRN (10:45)
[2019-04-01] MEDS ORDERED: DiphenhydrAMINE 50mg/ml Inj IVP PRN (10:45)
[2019-04-01] MEDS ORDERED: Lidocaine 1% MPF 10mg/ml 5ml ONE (11:30)
[2019-04-01] MEDS ORDERED: Propofol 200mg/20ml IV ONE (11:30)
--- NOTE | 2019-04-01 11:30 | NUR ---
NURSE NOTES: Patient is NPO and insulin was held.
--- NOTE | 2019-04-01 11:36 | Pulmonology Progress Note ---
Assessment/Plan Problems: (1) duodeno-cholecytic fistula (2) Cholecystitis (3) Cholelithiases (4) Hepatitis (5) Failure to thrive in adult (6) Diabetes mellitus (7) Diverticulitis Assessment/Plan Colonoscopy scheduled for today. all noted HIDA scan noted, continue abx check cultures f/u surgical recommendations sliding scale probable ileus caused by gall stone. f/u GI recommendations Subjective ROS Limited/Unobtainable: No Constitutional: Reports: no symptoms HEENT: Repors: no symptoms Respiratory: Reports: no symptoms Allergies: Coded Allergies: No Known Allergies (Unverified , 04/03/17) Objective Last 24 Hour Vital Signs Date Time Temp Pulse Resp B/P (MAP) Pulse Ox O2 Delivery O2 Flow Rate FiO2 04/01/19 09:00 Room Air 04/01/19 08:43 68 132/51 04/01/19 08:00 98.9 68 20 132/51 (78) 97 04/01/19 04:00 98.5 75 16 146/57 (86) 96 04/01/19 00:00 98.7 78 16 136/56 (82) 96 03/31/19 21:00 Room Air 03/31/19 20:00 98.3 79 18 152/94 (113) 98 03/31/19 16:00 98.6 73 17 136/58 (84) 97 73 03/31/19 12:00 97.5 74 18 141/68 (92) 96 74 Intake and Output 03/31/19 04/01/19 19:00 07:00 Intake Total 910.0 ml Balance 910.0 ml IV Total 110.0 ml Other 800 ml # Voids 3 Objective General Appearance: WD/WN HEENT: normocephalic, atraumatic Respiratory/Chest: chest wall non-tender, lungs clear Breasts: no masses Cardiovascular: normal peripheral pulses Abdomen: normal bowel sounds, soft, non tender Genitourinary: normal external genitalia Extremities: no clubbing 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 normal Lymphatic: no neck adenopathy Laboratory Tests 04/01/19 04:05: White Blood Count 8.1, Red Blood Count 3.34L, Hemoglobin 9.3L, Hematocrit 29.1L , Mean Corpuscular Volume 87, Mean Corpuscular Hemoglobin 28.0, Mean Corpuscular Hemoglobin Concent 32.1, Red Cell Distribution Width 13.2, Platelet Count 447, Mean Platelet Volume 4.9L, Neutrophils (%) (Auto) 60.5, Lymphocytes ( %) (Auto) 23.6, Monocytes (%) (Auto) 12.8H, Eosinophils (%) (Auto) 2.1, Basophils (%) (Auto) 1.0, Prothrombin Time 10.0, Prothromb Time International Ratio 0.9, Activated Partial Thromboplast Time 25, Sodium Level 138, Potassium Level 3.2L, Chloride Level 100, Carbon Dioxide Level 31, Anion Gap 7, Blood Urea Nitrogen 6L, Creatinine 0.7, Estimat Glomerular Filtration Rate , Glucose Level 110H, Calcium Level 8.9, Total Bilirubin 0.3, Direct Bilirubin 0.1, Aspartate Amino Transf (AST/SGOT) 46H, Alanine Aminotransferase (ALT/SGPT) 146H , Alkaline Phosphatase 201H, Total Protein 6.6, Albumin 2.7L Current Medications Medications (Trade) Dose Ordered Sig/Lora Route PRN Reason Start Time Stop Time Status Last Admin Dose Admin Acetaminophen (Tylenol) 650 mg Q4H PRN ORAL fever 03/27/19 13:30 04/26/19 13:29 Al Hydroxide/Mg Hydroxide (Mylanta) 15 ml Q1H PRN ORAL gi upset 04/01/19 10:45 04/01/19 18:00 Amlodipine Besylate (Norvasc) 5 mg DAILY ORAL 03/28/19 09:00 04/27/19 08:59 04/01/19 08:43 Atropine Sulfate (Atropine) 0.5 mg Q5M PRN IV bpm less than 45 04/01/19 10:45 04/01/19 18:00 Barium Sulfate (Varibar Honey) 250 ml NOW PRN MC RAD 03/31/19 12:45 04/03/19 12:39 Barium Sulfate (Varibar [place]) 240 ml NOW PRN MC RAD 03/31/19 12:45 04/03/19 12:39 Barium Sulfate (Varibar Pudding) 230 ml NOW PRN MC RAD 03/31/19 12:45 04/03/19 12:39 Dextrose (Dextrose 50%) 25 ml Q30M PRN IV Hypoglycemia 03/27/19 13:30 04/26/19 13:29 Dextrose (Dextrose 50%) 50 ml Q30M PRN IV Hypoglycemia 03/27/19 13:30 04/26/19 13:29 Diphenhydramine HCl (Benadryl) 25 mg Q15M PRN IVP Itching 04/01/19 10:45 04/01/19 18:00 Fentanyl Citrate (Sublimaze 100 mcg/2 mL) 25 mcg Q10M PRN IV Moderate Pain (Pain Scale 4-6) 04/01/19 10:45 04/01/19 18:00 Heparin Sodium (Porcine) (Heparin 5000 units/ml) 5,000 units EVERY 12 HOURS SUBQ 03/27/19 21:00 04/26/19 20:59 03/31/19 08:13 Hydralazine HCl (Apresoline) 5 mg Q30M PRN IV SBP>160 OR___/DBP>90 OR___ 04/01/19 10:45 04/01/19 18:00 Insulin Aspart (NovoLOG) BEFORE MEALS AND HS SUBQ 03/27/19 16:30 04/26/19 16:29 03/30/19 21:23 Lorazepam (Ativan 2mg/ml 1ml) 0.5 mg Q4H PRN IV For Anxiety 03/27/19 13:30 04/03/19 13:29 Memantine (Namenda) 5 mg DAILY ORAL 03/28/19 09:00 04/27/19 08:59 03/31/19 08:12 Midazolam HCl (Versed 2mg/2ml vial) 1 mg Q15M PRN IVP For Anxiety 04/01/19 10:45 04/01/19 18:00 Morphine Sulfate (Morphine Sulfate) 1 mg Q4H PRN IVP For Pain 03/27/19 13:30 04/03/19 13:29 Ondansetron HCl (Zofran) 4 mg Q1H PRN IVP Nausea & Vomiting 04/01/19 10:45 04/01/19 18:00 Ondansetron HCl (Zofran) 4 mg Q6H PRN IVP Nausea & Vomiting 03/27/19 13:30 04/26/19 13:29 Pantoprazole (Protonix) 40 mg EVERY 12 HOURS ORAL 03/28/19 21:00 04/27/19 20:59 03/31/19 21:26 Piperacillin Sod/ Tazobactam Sod 3.375 gm/Sodium Chloride 110 ml @ 27.5 mls/hr Q12H IVPB 03/28/19 12:00 04/04/19 11:59 03/31/19 23:32 Polyethylene Glycol (Miralax) 17 gm HSPRN PRN ORAL Constipation 03/27/19 13:30 04/26/19 13:29 Pravastatin Sodium (Pravachol) 20 mg BEDTIME ORAL 03/27/19 21:00 04/26/19 20:59 03/31/19 21:26 Sodium Chloride 1,000 ml @ 10 mls/hr Q24H IVLG 04/01/19 10:37 04/01/19 18:00 Zolpidem Tartrate (Ambien) 5 mg HSPRN PRN ORAL Insomnia 03/27/19 13:30 04/03/19 13:29 Dony Eli MD Apr 01, 2019 11:36
--- NOTE | 2019-04-01 11:50 | NUR ---
NURSE NOTES: Patient left the floor for GI Lab
--- NOTE | 2019-04-01 12:04 | NUR ---
RD ASSESSMENT & RECOMMENDATIONS SEE CARE ACTIVITY FOR COMPLETE ASSESSMENT DAILY ESTIMATED NEEDS: Needs based on DM/ 41kg 25-30 kcals/kg 3709-9681 total kcals 1-1.3 g protein/kg 41-53 g total protein 25-30 mL/kg 4954-0777 total fluid mLs NUTRITION DIAGNOSIS: Altered GI function R/T suspected cholecystitis, abnormal GB with duodenal fistula as evidenced by pt admitted w/ c/o abdominal pain, currently NPO pending EGD. CURRENT DIET:CCHO MED, BLU -> NPO for EGD PO DIET RECOMMENDATIONS: CCHO LOW, CARDIAC (low fat/chol + low Na)/ texture per CHEMIST HELPER ADDITIONAL RECOMMENDATIONS: * Calibrated bedscale wt for accurate CBW * Limit to Glucerna to 2x/day at this time- suspected cholecystitis (9g fat per Glucerna doug, total of 18g from Glucerna per day) * Monitor PO intake closely, need to liberalized diet -> RESTART TERENCE COUNT IF INDICATED previous kcal count missing data
[2019-04-01] MEDS ORDERED: NS 500ML IVPB ONE (12:10)
--- NOTE | 2019-04-01 12:13 | Pre-Procedure Note/Attestation ---
Pre-Procedure Note/Attestation Complete Prior to Procedure Planned Procedure: not applicable Procedure Narrative: egd Indications for Procedure Pre-Operative Diagnosis: anemia Attestation I attest that I discussed the nature of the procedure; its benefits; risks and complications; and alternatives (and the risks and benefits of such alternatives ), prior to the procedure, with the patient (or the patient's legal hospital insurance representative). I attest that, if there was a reasonable possibility of needing a blood transfusion, the patient (or the patient's legal hospital insurance representative) was given the [facility] standardized written summary, pursuant to the Niko Primghar Blood Safety Act ([place] Health and Safety Code # 1645, as amended). I attest that I re-evaluated the patient just prior to the surgery and that there has been no change in the patient's H&P, except as documented below: Panda Friedman MD Apr 01, 2019 12:13
--- NOTE | 2019-04-01 12:24 | Infectious Diseases Prog Note ---
Assessment/Plan Assessment/Plan A: 83 yo female with PMHx of DM, HTN and Asthma who presented to the ED on 03/27/19 with 4 days of abdominal pain. Probable cholecystitis (? fistula) CT abd 03/27/19 - Severe distention of the gallbladder, wall thickening, secondary to a large intraluminal gallstones. Cholecystitis is suspected. Correlate clinically. 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 There does appear to be some radiotracer filling the extremely distorted gallbladder, but this could be from the bowel connection, rather than the cystic duct. Leukocytosis - resolved No Fever DM HTN HLD Asthma Arthritis PLAN - Continue Zosyn # 5/10 - f/u Surgery recs - - EGD - Monitor CBC and temps . Subjective Allergies: Coded Allergies: No Known Allergies (Unverified , 04/03/17) Subjective afebrile Objective Vital Signs Last 24 Hour Vital Signs Date Time Temp Pulse Resp B/P (MAP) Pulse Ox O2 Delivery O2 Flow Rate FiO2 04/01/19 09:00 Room Air 04/01/19 08:43 68 132/51 04/01/19 08:00 98.9 68 20 132/51 (78) 97 04/01/19 04:00 98.5 75 16 146/57 (86) 96 04/01/19 00:00 98.7 78 16 136/56 (82) 96 03/31/19 21:00 Room Air 03/31/19 20:00 98.3 79 18 152/94 (113) 98 03/31/19 16:00 98.6 73 17 136/58 (84) 97 73 Height (Feet): 4 Height (Inches): 3.00 Weight (Pounds): 95 HEENT: mucous membranes moist Respiratory/Chest: no respiratory distress Cardiovascular: regularly irregular Abdomen: non distended Laboratory Tests Test 04/01/19 04:05 White Blood Count 8.1 K/UL (4.8-10.8) Red Blood Count 3.34 M/UL (4.20-5.40) L Hemoglobin 9.3 G/DL (12.0-16.0) L Hematocrit 29.1 % (37.0-47.0) L Mean Corpuscular Volume 87 FL (80-99) Mean Corpuscular Hemoglobin 28.0 PG (27.0-31.0) Mean Corpuscular Hemoglobin Concent 32.1 G/DL (32.0-36.0) Red Cell Distribution Width 13.2 % (11.6-14.8) Platelet Count 447 K/UL (150-450) Mean Platelet Volume 4.9 FL (6.5-10.1) L Neutrophils (%) (Auto) 60.5 % (45.0-75.0) Lymphocytes (%) (Auto) 23.6 % (20.0-45.0) Monocytes (%) (Auto) 12.8 % (1.0-10.0) H Eosinophils (%) (Auto) 2.1 % (0.0-3.0) Basophils (%) (Auto) 1.0 % (0.0-2.0) Prothrombin Time 10.0 SEC (9.30-11.50) Prothromb Time International Ratio 0.9 (0.9-1.1) Activated Partial Thromboplast Time 25 SEC (23-33) Sodium Level 138 MMOL/L (136-145) Potassium Level 3.2 MMOL/L (3.5-5.1) L Chloride Level 100 MMOL/L (98-107) Carbon Dioxide Level 31 MMOL/L (21-32) Anion Gap 7 mmol/L (5-15) Blood Urea Nitrogen 6 mg/dL (7-18) L Creatinine 0.7 MG/DL (0.55-1.30) Estimat Glomerular Filtration Rate mL/min (>60) Glucose Level 110 MG/DL (74-106) H Calcium Level 8.9 MG/DL (8.5-10.1) Total Bilirubin 0.3 MG/DL (0.2-1.0) Direct Bilirubin 0.1 MG/DL (0.0-0.3) Aspartate Amino Transf (AST/SGOT) 46 U/L (15-37) H Alanine Aminotransferase (ALT/SGPT) 146 U/L (12-78) H Alkaline Phosphatase 201 U/L (46-116) H Total Protein 6.6 G/DL (6.4-8.2) Albumin 2.7 G/DL (3.4-5.0) L Current Medications Medications (Trade) Dose Ordered Sig/Lora Route PRN Reason Start Time Stop Time Status Last Admin Dose Admin Acetaminophen (Tylenol) 650 mg Q4H PRN ORAL fever 03/27/19 13:30 04/26/19 13:29 Al Hydroxide/Mg Hydroxide (Mylanta) 15 ml Q1H PRN ORAL gi upset 04/01/19 10:45 04/01/19 18:00 Amlodipine Besylate (Norvasc) 5 mg DAILY ORAL 03/28/19 09:00 04/27/19 08:59 04/01/19 08:43 Atropine Sulfate (Atropine) 0.5 mg Q5M PRN IV bpm less than 45 04/01/19 10:45 04/01/19 18:00 Barium Sulfate (Varibar Honey) 250 ml NOW PRN MC RAD 03/31/19 12:45 04/03/19 12:39 Barium Sulfate (Varibar [place]) 240 ml NOW PRN RAD 03/31/19 12:45 04/03/19 12:39 Barium Sulfate (Varibar Pudding) 230 ml NOW PRN RAD 03/31/19 12:45 04/03/19 12:39 Dextrose (Dextrose 50%) 25 ml Q30M PRN IV Hypoglycemia 03/27/19 13:30 04/26/19 13:29 Dextrose (Dextrose 50%) 50 ml Q30M PRN IV Hypoglycemia 03/27/19 13:30 04/26/19 13:29 Diphenhydramine HCl (Benadryl) 25 mg Q15M PRN IVP Itching 04/01/19 10:45 04/01/19 18:00 Fentanyl Citrate (Sublimaze 100 mcg/2 mL) 25 mcg Q10M PRN IV Moderate Pain (Pain Scale 4-6) 04/01/19 10:45 04/01/19 18:00 Heparin Sodium (Porcine) (Heparin 5000 units/ml) 5,000 units EVERY 12 HOURS SUBQ 03/27/19 21:00 04/26/19 20:59 03/31/19 08:13 Hydralazine HCl (Apresoline) 5 mg Q30M PRN IV SBP>160 OR___/DBP>90 OR___ 04/01/19 10:45 04/01/19 18:00 Insulin Aspart (NovoLOG) BEFORE MEALS AND HS SUBQ 03/27/19 16:30 04/26/19 16:29 03/30/19 21:23 Lorazepam (Ativan 2mg/ml 1ml) 0.5 mg Q4H PRN IV For Anxiety 03/27/19 13:30 04/03/19 13:29 Memantine (Namenda) 5 mg DAILY ORAL 03/28/19 09:00 04/27/19 08:59 03/31/19 08:12 Midazolam HCl (Versed 2mg/2ml vial) 1 mg Q15M PRN IVP For Anxiety 04/01/19 10:45 04/01/19 18:00 Morphine Sulfate (Morphine Sulfate) 1 mg Q4H PRN IVP For Pain 03/27/19 13:30 04/03/19 13:29 Ondansetron HCl (Zofran) 4 mg Q1H PRN IVP Nausea & Vomiting 04/01/19 10:45 04/01/19 18:00 Ondansetron HCl (Zofran) 4 mg Q6H PRN IVP Nausea & Vomiting 03/27/19 13:30 04/26/19 13:29 Pantoprazole (Protonix) 40 mg EVERY 12 HOURS ORAL 03/28/19 21:00 04/27/19 20:59 03/31/19 21:26 Piperacillin Sod/ Tazobactam Sod 3.375 gm/Sodium Chloride 110 ml @ 27.5 mls/hr Q12H IVPB 03/28/19 12:00 04/04/19 11:59 03/31/19 23:32 Polyethylene Glycol (Miralax) 17 gm HSPRN PRN ORAL Constipation 03/27/19 13:30 04/26/19 13:29 Pravastatin Sodium (Pravachol) 20 mg BEDTIME ORAL 03/27/19 21:00 04/26/19 20:59 03/31/19 21:26 Sodium Chloride 1,000 ml @ 10 mls/hr Q24H IVLG 04/01/19 10:37 04/01/19 18:00 Zolpidem Tartrate (Ambien) 5 mg HSPRN PRN ORAL Insomnia 03/27/19 13:30 04/03/19 13:29 Maksim Davis MD Apr 01, 2019 12:23
--- NOTE | 2019-04-01 12:33 | Endoscopy Procedure Note ---
Endoscopy Procedure Note General Indication for Procedure: anemia Procedures Performed: EGD Operative Findings/Diagnosis: gastritis Specimen: yes Pt Tolerated Procedure Well: Yes Estimated Blood Loss: none Anesthesia Anesthesiologist: lenard Anesthesia: MAC Inserted Devices Implant(s) used?: No GI Core Measures 50 yrs or older w/o bx or poly: Not Applicable 10yrs. F/U recommended: Not Applicable Panda Friedman MD Apr 01, 2019 12:33
--- NOTE | 2019-04-01 13:14 | Immediate Post-Op Evaluation ---
Immediate Post-Op Evalulation Immediate Post-Op Evalulation Procedure: egd w/bx Date of Evaluation: Apr 01, 2019 Time of Evaluation: 12:55 IV Fluids: 150ml 0.9ns Blood Products: none Estimated Blood Loss: negligible Blood Pressure Systolic: 132 Blood Pressure Diastolic: 59 Pulse Rate: 70 Respiratory Rate: 18 O2 Sat by Pulse Oximetry: 97 Temperature (Fahrenheit): 98.3 Pain Score (1-10): 0 Nausea: No Vomiting: No Complications none Patient Status: awake, reacts, patent Hydration Status: adequate Drug: Rebecca Wan MD Apr 01, 2019 13:14
--- NOTE | 2019-04-01 13:15 | 48 Hour Post Anesthesia Eval ---
Post Anesthesia Evaluation Procedure: egd w/bx Date of Evaluation: Apr 01, 2019 Time of Evaluation: 12:59 Blood Pressure Systolic: 142 0: 62 Pulse Rate: 72 Respiratory Rate: 18 Temperature (Fahrenheit): 98.3 O2 Sat by Pulse Oximetry: 99 Airway: patent Nausea: No Vomiting: No Pain Intensity: 0 Hydration Status: adequate Cardiopulmonary Status: stable Mental Status/LOC: patient returned to baseline Post-Anesthesia Complications: none Follow-up care needed: N/A Rebecca Titus MD Apr 01, 2019 13:15
--- NOTE | 2019-04-01 13:35 | NUR ---
NURSE NOTES: Patient came back from GI lab; I received report from DIMITRIOS Pinon; patient is awake, alert x4; talking; will order tray for patient;
[2019-04-01] MEDS: Piperacillin/Tazobactam 3.375 GM in NS 110 ML IVPB SCH (13:50)
--- NOTE | 2019-04-01 14:52 | NUR ---
SWALLOW/SPEECH THERAPY NOTE: SWALLOW STATUS PATIENT HAD EGD TODAY AND DX WITH GASTRITIS. GOALS MET FOR NEW STAFF AWARE OF ASP/REFLUX PRECAUTIONS BUT GOALS FOR INTAKE NOT MET SINCE PT HAS NO APPETITE. PT EATING MOSTLY HER MASHED POTATOES BUT NOT EVEN HER FISH SOFT FOOD. ENCOURAGED HER TO DRINK HER HIGH CALORIE SUPPLEMENT. REVIEWED MOD BARIUM SWALLOW STUDY (MBSS) IMAGES AND COMPLETED REPORT. PLAN: CONTINUE WITH GOALS ON MBSS REPORT
--- NOTE | 2019-04-01 15:18 | Surgery Progress Note ---
Surgery Progress Note Subjective Additional Comments Patient seen and examined bedside. 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 She is in the early stages of developing a gallstone ileus with a very strong possibility of a blockage both at the duodenum or distally. I will need to have a discussion with the family regards to this and surgical intervention Objective Last 24 Hour Vital Signs Date Time Temp Pulse Resp B/P (MAP) Pulse Ox O2 Delivery O2 Flow Rate FiO2 04/01/19 13:30 98.0 84 20 145/65 (91) 95 04/01/19 13:15 97.8 71 19 134/56 95 Room Air 04/01/19 13:15 72 18 99 04/01/19 13:14 70 18 97 04/01/19 13:05 72 22 143/62 96 Room Air 04/01/19 13:00 74 18 137/58 96 Room Air 04/01/19 12:55 71 20 132/56 94 Room Air 04/01/19 12:50 74 19 128/54 95 Room Air 04/01/19 12:45 98.0 84 21 132/59 97 Room Air 04/01/19 09:00 Room Air 04/01/19 08:43 68 132/51 04/01/19 08:00 98.9 68 20 132/51 (78) 97 04/01/19 04:00 98.5 75 16 146/57 (86) 96 04/01/19 00:00 98.7 78 16 136/56 (82) 96 03/31/19 21:00 Room Air 03/31/19 20:00 98.3 79 18 152/94 (113) 98 03/31/19 16:00 98.6 73 17 136/58 (84) 97 73 I&O Intake and Output 03/31/19 04/01/19 18:59 06:59 Intake Total 910.0 ml Balance 910.0 ml IV Total 110.0 ml Other 800 ml # Voids 3 Cardiovascular: RSR Respiratory: clear Abdomen: soft, flat, non-tender, present bowel sounds Extremities: no edema, no tenderness, no cyanosis Laboratory Tests Test 04/01/19 04:05 White Blood Count 8.1 K/UL (4.8-10.8) Red Blood Count 3.34 M/UL (4.20-5.40) L Hemoglobin 9.3 G/DL (12.0-16.0) L Hematocrit 29.1 % (37.0-47.0) L Mean Corpuscular Volume 87 FL (80-99) Mean Corpuscular Hemoglobin 28.0 PG (27.0-31.0) Mean Corpuscular Hemoglobin Concent 32.1 G/DL (32.0-36.0) Red Cell Distribution Width 13.2 % (11.6-14.8) Platelet Count 447 K/UL (150-450) Mean Platelet Volume 4.9 FL (6.5-10.1) L Neutrophils (%) (Auto) 60.5 % (45.0-75.0) Lymphocytes (%) (Auto) 23.6 % (20.0-45.0) Monocytes (%) (Auto) 12.8 % (1.0-10.0) H Eosinophils (%) (Auto) 2.1 % (0.0-3.0) Basophils (%) (Auto) 1.0 % (0.0-2.0) Prothrombin Time 10.0 SEC (9.30-11.50) Prothromb Time International Ratio 0.9 (0.9-1.1) Activated Partial Thromboplast Time 25 SEC (23-33) Sodium Level 138 MMOL/L (136-145) Potassium Level 3.2 MMOL/L (3.5-5.1) L Chloride Level 100 MMOL/L (98-107) Carbon Dioxide Level 31 MMOL/L (21-32) Anion Gap 7 mmol/L (5-15) Blood Urea Nitrogen 6 mg/dL (7-18) L Creatinine 0.7 MG/DL (0.55-1.30) Estimat Glomerular Filtration Rate mL/min (>60) Glucose Level 110 MG/DL (74-106) H Calcium Level 8.9 MG/DL (8.5-10.1) Total Bilirubin 0.3 MG/DL (0.2-1.0) Direct Bilirubin 0.1 MG/DL (0.0-0.3) Aspartate Amino Transf (AST/SGOT) 46 U/L (15-37) H Alanine Aminotransferase (ALT/SGPT) 146 U/L (12-78) H Alkaline Phosphatase 201 U/L (46-116) H Total Protein 6.6 G/DL (6.4-8.2) Albumin 2.7 G/DL (3.4-5.0) L Plan Problems: (1) Cholecystitis Assessment & Plan: Improving labs improved pain improved diet cont with medical management HIDA results concerning CT demonstrates a 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 There does appear to be some radiotracer filling the extremely distorted gallbladder, but this could be from the bowel connection, rather than the cystic duct. will need to review studies with radiologist first when they are available. 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 She is in the early stages of developing a gallstone ileus with a very strong possibility of a blockage both at the duodenum or distally. I will need to have a discussion with the family regards to this and surgical intervention Findings: The gallbladder is severely distended with wall thickening secondary to very large stones within the lumen. For example one of the stones measures about 6 x 3 cm. There is another stone and measures 2.7 cm. Cholecystitis is suspected. Biliary ducts are mildly prominent. The sigmoid colon appears abnormal. There are diverticula with ill-definition of the wall and slight thickening of the wall. Diverticulitis is not excluded and should be considered as well. There is an umbilical hernia containing fat. Bowel gas pattern is nonobstructive appendix is probably seen partially and unremarkable as such. The aorta and iliac arteries are tortuous moderately calcified. Bladder is nondistended. There is no ascites. There is no hydronephrosis, adrenal mass or splenomegaly. Pancreas is unremarkable. There is a hiatal hernia. Minimal streaky atelectasis versus scarring at the lung bases noted. There is narrowing of intervertebral discs and accompanying endplate osteophyte formation. Hypertrophied facet joints also demonstrated. Uterus is not seen. IMPRESSION: Severe distention of the gallbladder, wall thickening, secondary to a large intraluminal gallstones. Cholecystitis is suspected. Correlate clinically. Suspected diverticulitis in the sigmoid region with wall thickening and mild perisigmoid inflammation with multiple diverticula in the sigmoid colon and elsewhere in the colon. No abscess. 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 Sonographic Florez's is negative per technologist. The liver is unremarkable. Doppler interrogation of the main portal vein shows patency with hepatopedal, monophasic flow. There is no biliary ductal dilatation identified. The demonstrated part of the pancreas, aorta and IVC show no definite abnormalities. Both kidneys appear unremarkable. There is no hydronephrosis. IMPRESSION: Cholelithiasis Had a long discussion today at the bedside with the patient and her son. States that there is no other family insisted to them. I discussed with them the CT HIDA scan and ultrasound findings in detail. I discussed with them the concerns for a gallbladder enteric fistula and the potential of gallstone ileus and her large car stones and the inflammation identified on the CT and these findings. We discussed how she is significantly improved and currently asymptomatic and recovering well. We discussed her age her medical comorbidities and her overall condition. I asked the patient and her son to consider her options of possible surgical versus nonsurgical intervention. I explained to him that given these findings that were discovered on her imaging that if she does truly have a fistula between the gallbladder and the duodenum with these large stones and her bladder findings there is potential for possible insult in the future which could be concerning. I explained to him that there is consideration for surgical intervention with cholecystectomy and if necessary division/repair of the fistula. I explained to him that this will likely be a major surgery and would require open surgery rather than laparoscopic and does have potential morbidity and even chance of mortality. Patient's son seem to understand. I explained to him currently she is doing well we will advance her diet and continue the antibiotics and medical management of her acute event. If they do decide to proceed with surgery I will discuss with them the appropriate timing of doing so. (3) Diverticulitis Assessment & Plan: medical management (4) Elevated liver enzymes Assessment & Plan: hep panel labs trend will monitor (5) Failure to thrive in adult Assessment & Plan: diet as tolerated Alexandro Perez Apr 01, 2019 15:18
--- NOTE | 2019-04-01 17:15 | Procedure Note ---
DATE OF PROCEDURE: 04/01/2019 SURGEON: Panda Friedman M.D. REFERRING PHYSICIAN: Logan Camargo M.D. PROCEDURE: Upper endoscopy with biopsy. ANESTHESIA: Per Dr. Cuevas. INSTRUMENT: Olympus adult flexible upper endoscope. INDICATIONS: 1. Anemia. 2. Stool OB positive. REASON FOR PROCEDURE: The procedure, risks, benefits, and possible consequences, including hemorrhage, aspiration, perforation and infection, and alternative treatments, were explained to the patient/legal guardian by Dr. Panda Friedman and the patient/legal guardian understood and accepted these risks. PROCEDURE IN DETAIL: After informed consent was obtained and the patient was adequately sedated, Olympus upper endoscope was advanced from mouth into the esophagus. GE junction was found to be about 35 cm from the incisors. This patient had evidence of medium-sized hiatal hernia without any esophagitis. In the stomach, there was diffuse gastritis. Random biopsy from antrum was obtained to rule out H. pylori infection. We had a hard time getting the scope into the duodenum. There was a lot of inflammation at the pyloric channel. After we entered the duodenal bulb, we saw a big black-colored material suspicious for stone in the duodenal bulb causing some irritation to the lining of the duodenum. Unable to pass the scope beyond this point. We even had the surgeon, Dr. Perez come to the room and observe. He also agreed that this seems to be stone stuck in the duodenal bulb. At this time, we removed the scope after biopsying the antrum and procedure was terminated. SUMMARY OF FINDINGS: 1. Hiatal hernia. 2. Gastritis, status post biopsy. 3. Possible stone stuck in the duodenal bulb from the gallbladder fistula. RECOMMENDATIONS: 1. Follow up biopsy results and treat accordingly. 2. Keep the patient NPO for now. 3. Monitor labs. 4. Surgery is planning to order an MRCP and possible operation. I want to thank Dr. Logan Camargo for this kind referral. Panda Friedman M.D. DR: COMPA JOB#: [id number] CC:
--- NOTE | 2019-04-01 17:16 | Internal Med Progress Note ---
Subjective Date of Service: Apr 01, 2019 Physician Name Isaías Atwood Attending Physician Logan Camargo MD Current Medications Medications (Trade) Dose Ordered Sig/Lora Route PRN Reason Start Time Stop Time Status Last Admin Dose Admin Acetaminophen (Tylenol) 650 mg Q4H PRN ORAL fever 03/27/19 13:30 04/26/19 13:29 Amlodipine Besylate (Norvasc) 5 mg DAILY ORAL 03/28/19 09:00 04/27/19 08:59 04/01/19 08:43 Barium Sulfate (Varibar Honey) 250 ml NOW PRN MC RAD 03/31/19 12:45 04/03/19 12:39 Barium Sulfate (Varibar [place]) 240 ml NOW PRN MC RAD 03/31/19 12:45 04/03/19 12:39 Barium Sulfate (Varibar Pudding) 230 ml NOW PRN MC RAD 03/31/19 12:45 04/03/19 12:39 Dextrose (Dextrose 50%) 25 ml Q30M PRN IV Hypoglycemia 03/27/19 13:30 04/26/19 13:29 Dextrose (Dextrose 50%) 50 ml Q30M PRN IV Hypoglycemia 03/27/19 13:30 04/26/19 13:29 Heparin Sodium (Porcine) (Heparin 5000 units/ml) 5,000 units EVERY 12 HOURS SUBQ 03/27/19 21:00 04/26/19 20:59 03/31/19 08:13 Insulin Aspart (NovoLOG) BEFORE MEALS AND HS SUBQ 03/27/19 16:30 04/26/19 16:29 03/30/19 21:23 Lorazepam (Ativan 2mg/ml 1ml) 0.5 mg Q4H PRN IV For Anxiety 03/27/19 13:30 04/03/19 13:29 Memantine (Namenda) 5 mg DAILY ORAL 03/28/19 09:00 04/27/19 08:59 03/31/19 08:12 Morphine Sulfate (Morphine Sulfate) 1 mg Q4H PRN IVP For Pain 03/27/19 13:30 04/03/19 13:29 Ondansetron HCl (Zofran) 4 mg Q6H PRN IVP Nausea & Vomiting 03/27/19 13:30 04/26/19 13:29 Pantoprazole (Protonix) 40 mg EVERY 12 HOURS ORAL 03/28/19 21:00 04/27/19 20:59 03/31/19 21:26 Piperacillin Sod/ Tazobactam Sod 3.375 gm/Sodium Chloride 110 ml @ 27.5 mls/hr Q12H IVPB 03/28/19 12:00 04/04/19 11:59 04/01/19 13:50 Polyethylene Glycol (Miralax) 17 gm HSPRN PRN ORAL Constipation 03/27/19 13:30 04/26/19 13:29 Pravastatin Sodium (Pravachol) 20 mg BEDTIME ORAL 03/27/19 21:00 04/26/19 20:59 03/31/19 21:26 Zolpidem Tartrate (Ambien) 5 mg HSPRN PRN ORAL Insomnia 03/27/19 13:30 04/03/19 13:29 Allergies: Coded Allergies: No Known Allergies (Unverified , 04/03/17) ROS Limited/Unobtainable: No Constitutional: Reports: no symptoms HEENT: Reports: no symptoms Cardiovascular: Reports: no symptoms Respiratory: Reports: no symptoms Gastrointestinal/Abdominal: Reports: no symptoms Genitourinary: Reports: no symptoms Neurologic/Psychiatric: Reports: no symptoms Subjective 83 YO F admitted with right upper quadrant pain. Now acute cholecystitis and cholelithiasis. Cover for Int Med-Dr Camargo. S/P endoscopy 04/01/19=large stone in duodenem and tricia-duodenal fistula Objective Last Vital Signs Date Time Temp Pulse Resp B/P (MAP) Pulse Ox O2 Delivery O2 Flow Rate FiO2 04/01/19 16:00 97.7 81 18 154/90 (111) 96 04/01/19 13:15 Room Air Laboratory Tests Test 04/01/19 04:05 White Blood Count 8.1 K/UL (4.8-10.8) Red Blood Count 3.34 M/UL (4.20-5.40) L Hemoglobin 9.3 G/DL (12.0-16.0) L Hematocrit 29.1 % (37.0-47.0) L Mean Corpuscular Volume 87 FL (80-99) Mean Corpuscular Hemoglobin 28.0 PG (27.0-31.0) Mean Corpuscular Hemoglobin Concent 32.1 G/DL (32.0-36.0) Red Cell Distribution Width 13.2 % (11.6-14.8) Platelet Count 447 K/UL (150-450) Mean Platelet Volume 4.9 FL (6.5-10.1) L Neutrophils (%) (Auto) 60.5 % (45.0-75.0) Lymphocytes (%) (Auto) 23.6 % (20.0-45.0) Monocytes (%) (Auto) 12.8 % (1.0-10.0) H Eosinophils (%) (Auto) 2.1 % (0.0-3.0) Basophils (%) (Auto) 1.0 % (0.0-2.0) Prothrombin Time 10.0 SEC (9.30-11.50) Prothromb Time International Ratio 0.9 (0.9-1.1) Activated Partial Thromboplast Time 25 SEC (23-33) Sodium Level 138 MMOL/L (136-145) Potassium Level 3.2 MMOL/L (3.5-5.1) L Chloride Level 100 MMOL/L (98-107) Carbon Dioxide Level 31 MMOL/L (21-32) Anion Gap 7 mmol/L (5-15) Blood Urea Nitrogen 6 mg/dL (7-18) L Creatinine 0.7 MG/DL (0.55-1.30) Estimat Glomerular Filtration Rate mL/min (>60) Glucose Level 110 MG/DL (74-106) H Calcium Level 8.9 MG/DL (8.5-10.1) Total Bilirubin 0.3 MG/DL (0.2-1.0) Direct Bilirubin 0.1 MG/DL (0.0-0.3) Aspartate Amino Transf (AST/SGOT) 46 U/L (15-37) H Alanine Aminotransferase (ALT/SGPT) 146 U/L (12-78) H Alkaline Phosphatase 201 U/L (46-116) H Total Protein 6.6 G/DL (6.4-8.2) Albumin 2.7 G/DL (3.4-5.0) L Intake and Output 03/31/19 04/01/19 18:59 06:59 Intake Total 910.0 ml Balance 910.0 ml IV Total 110.0 ml Other 800 ml # Voids 3 Objective PHYSICAL EXAMINATION: GENERAL: The patient is a well-developed and well-nourished female, in no apparent distress. HEENT: Eyes, pupils are equal and responsive to light and accommodation. Extraocular movements are intact. NECK: Supple without lymphadenopathy. CHEST: Lungs are clear to auscultation bilaterally without wheezes or rales. CARDIOVASCULAR: Regular rhythm and rate. S1, S2 normal without murmurs, rubs, or gallops. ABDOMEN: Soft, nondistended with decreased bowel sounds. There is pain to palpation to right upper quadrant. No evidence of rebound or guarding noted. EXTREMITIES: Negative for clubbing, cyanosis, or edema. RECTAL/GENITAL: Not performed. NEUROLOGIC: Cranial nerves II through XII are grossly intact without focal deficits. Motor strength is 5/5 bilaterally. Deep tendon reflexes are 2+ plantar. Assessment/Plan Assessment/Plan ASSESSMENT: This is an 83-year-old female with: 1. Right upper quadrant pain. 2. Acute cholecystitis. 3. Cholelithiasis. 4. Elevated liver function tests. 5. Diverticulitis. 6. Diabetes type 2. 7. Hypertension. 8. Hypercholesterolemia. 9. Asthma. 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 Occult pos stool TREATMENT: 1. Right upper quadrant pain/diverticulitis. A Gastroenterology consultation has been obtained with Dr. Panda Friedman. 2. Acute cholecystitis/cholelithiasis. 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 A General Surgery consultation has been obtained with Dr. Perez. The patient has been started empirically on intravenous ciprofloxacin and metronidazole. Surgery date is pending 3. Elevated liver function tests. Improving. As above, a Gastroenterology consultation has been obtained with Dr. Panda Friedman. Possible colonoscopy and endoscopy for occult blood source 4. Diabetes type 2. The patient has been placed on NovoLog sliding scale. 5. Hypertension. The patient is currently hypotensive. Hold amlodipine above. 6. Hypercholesterolemia. Continue simvastatin 20 mg p.o. daily. 7. Asthma. Isaías Atwood MD Apr 01, 2019 17:16
--- NOTE | 2019-04-01 18:31 | NUR ---
NURSE NOTES: RT is aware regarding Incentive Spirometer; waiting for RT to bring it to patient.
--- NOTE | 2019-04-01 19:23 | NUR ---
HAND-OFF: Report given to DIMITRIOS Bloom.
--- NOTE | 2019-04-01 20:00 | NUR ---
NURSE NOTES: RECEIVED PT FROM DIMITRIOS TAPIA. PT IS AWAKE, AAO X4, ON ROOM AIR, NO ACUTE DISTRESS NOTED. IV ON RIGHT AC 20G IS INTACT AND PATENT. BED IS LOCKED AT THE LOWEST POSITION, BED ALARMS ACTIVE, SIDE RAILS UP X2, AND CALL LIGHT IS WITHIN REACH. WILL CONTINUE TO MONITOR AND CONTINUE THE PLAN OF CARE.
[2019-04-02] VITALS: BP 140/63
[2019-04-02] MEDS: Piperacillin/Tazobactam 3.375 GM in NS 110 ML IVPB SCH ×2 (00:45→11:35)
--- NOTE | 2019-04-02 01:30 | NUR ---
NURSE NOTES: PT C/O /10 ABDOMEN PAIN. PRN IV MORPHINE GIVEN. WILL CONTINUE TO MONITOR.
[2019-04-02 04:00] VITALS: BP 134/54
--- NOTE | 2019-04-02 04:05 | NUR ---
NURSE NOTES: PT IS ASLEEP, VSS. WILL CONTINUE TO MONITOR.
[2019-04-02] MEDS: NovoLOG Insulin Flexpen SUBQ SCH ×4 (06:30→20:56)
[2019-04-02 06:51] LABS: BASOPHILS % (AUTO) 0.5 % (0.0-2.0); EOSINOPHILS % (AUTO) 1.2 % (0.0-3.0); HEMATOCRIT 29.4 % (37.0-47.0); HEMOGLOBIN 9.2 G/DL (12.0-16.0); LYMPHOCYTES % (AUTO) 21.2 % (20.0-45.0); MEAN CORPUSCULAR VOLUME 89 FL (80-99); MONOCYTES % (AUTO) 11.9 % (1.0-10.0); NEUTROPHILS % (AUTO) 65.3 % (45.0-75.0); PLATELET COUNT 454 K/UL (150-450); RED BLOOD COUNT 3.29 M/UL (4.20-5.40); RED CELL DISTRIBUTION WIDTH 13.8 % (11.6-14.8); WHITE BLOOD COUNT 12.1 K/UL (4.8-10.8)
[2019-04-02 07:17] LABS: ALANINE AMINOTRANSFERASE 104 U/L (12-78); ALBUMIN 2.9 G/DL (3.4-5.0); ALBUMIN/GLOBULIN RATIO 0.7 (1.0-2.7); ALKALINE PHOSPHATASE 183 U/L (46-116); ANION GAP 6 mmol/L (5-15); ASPARTATE AMINO TRANSFERASE 31 U/L (15-37); BILIRUBIN,TOTAL 0.3 MG/DL (0.2-1.0); BLOOD UREA NITROGEN 9 mg/dL (7-18); CALCIUM 9.2 MG/DL (8.5-10.1); CARBON DIOXIDE 30 MMOL/L (21-32); CHLORIDE 105 MMOL/L (98-107); CREATININE 0.8 MG/DL (0.55-1.30); POTASSIUM 4.2 MMOL/L (3.5-5.1); SODIUM 141 MMOL/L (136-145)
--- NOTE | 2019-04-02 07:45 | NUR ---
HAND-OFF: Report given to DIMITRIOS Fontenot. Addendum: 04/02/19 at 0746 by Onelia Bloom RN Report given to DIMITRIOS TAPIA.
[2019-04-02 08:00] VITALS: BP 118/60
--- NOTE | 2019-04-02 08:02 | NUR ---
NURSE NOTES: Patient awake, alert x4; on room air, no sing of distress and shortness of breath; no sign of chest pain; Mohawk speaking; IV RAC 20G TKO; side rails up x2, breaks engaged, bed at lowest position; will check blood sugar as scheduled; patient scheduled for MRI Abdomen No contrast, breakfast held till the procedure done; patient ambulatory, patient's own care at the bed side; call light within reach; will keep monitoring.
[2019-04-02] MEDS: Memantine 5 MG TAB ORAL SCH (08:27)
[2019-04-02] MEDS: Heparin 5000 units/ml inj SUBQ SCH ×2 (08:29→20:51)
--- NOTE | 2019-04-02 12:08 | Pulmonology Progress Note ---
Assessment/Plan Problems: (1) duodeno-cholecytic fistula (2) Cholecystitis (3) Cholelithiases (4) Hepatitis (5) Failure to thrive in adult (6) Diabetes mellitus (7) Diverticulitis Assessment/Plan Colonoscopy done MRI done, results are pending all noted continue abx check cultures f/u surgical recommendations sliding scale probable ileus caused by gall stone. f/u GI recommendations Subjective ROS Limited/Unobtainable: No Constitutional: Reports: no symptoms HEENT: Repors: no symptoms Allergies: Coded Allergies: No Known Allergies (Unverified , 04/03/17) Objective Last 24 Hour Vital Signs Date Time Temp Pulse Resp B/P (MAP) Pulse Ox O2 Delivery O2 Flow Rate FiO2 04/02/19 09:00 Room Air 04/02/19 08:28 78 118/60 04/02/19 08:00 98.4 78 18 118/60 (79) 96 04/02/19 04:00 98.5 70 20 134/54 (80) 94 04/02/19 00:00 97.9 84 18 140/63 (88) 97 04/01/19 21:00 Room Air 04/01/19 20:00 99.0 78 17 145/63 (90) 96 04/01/19 16:00 97.7 81 18 154/90 (111) 96 04/01/19 13:30 98.0 84 20 145/65 (91) 95 04/01/19 13:15 97.8 71 19 134/56 95 Room Air 04/01/19 13:15 72 18 99 04/01/19 13:14 70 18 97 04/01/19 13:05 72 22 143/62 96 Room Air 04/01/19 13:00 74 18 137/58 96 Room Air 04/01/19 12:55 71 20 132/56 94 Room Air 04/01/19 12:50 74 19 128/54 95 Room Air 04/01/19 12:45 98.0 84 21 132/59 97 Room Air Intake and Output 04/01/19 04/02/19 19:00 07:00 Intake Total 1085.0 ml 110.0 ml Output Total 0 ml Balance 1085.0 ml 110.0 ml IV Total 285.0 ml 110.0 ml Other 800 ml Output Estimated Blood Loss 0 ml # Voids 2 Objective General Appearance: WD/WN HEENT: normocephalic, atraumatic Respiratory/Chest: chest wall non-tender, lungs clear Breasts: no masses Cardiovascular: normal peripheral pulses Abdomen: normal bowel sounds, soft, non tender Genitourinary: normal external genitalia Extremities: no clubbing Neurologic/Psychiatric: driver helper II-XII grossly normal Lymphatic: no neck adenopathy Laboratory Tests 04/02/19 04:54: White Blood Count 12.1H, Red Blood Count 3.29L, Hemoglobin 9.2L, Hematocrit 29.4L, Mean Corpuscular Volume 89, Mean Corpuscular Hemoglobin 27.9, Mean Corpuscular Hemoglobin Concent 31.3L, Red Cell Distribution Width 13.8, Platelet Count 454H, Mean Platelet Volume 4.8L, Neutrophils (%) (Auto) 65.3, Lymphocytes (%) (Auto) 21.2, Monocytes (%) (Auto) 11.9H, Eosinophils (%) (Auto) 1.2, Basophils (%) (Auto) 0.5, Sodium Level 141, Potassium Level 4.2, Chloride Level 105, Carbon Dioxide Level 30, Anion Gap 6, Blood Urea Nitrogen 9, Creatinine 0.8, Estimat Glomerular Filtration Rate , Glucose Level 97, Calcium Level 9.2, Total Bilirubin 0.3, Aspartate Amino Transf (AST/SGOT) 31, Alanine Aminotransferase (ALT/SGPT) 104H, Alkaline Phosphatase 183H, Total Protein 6.8, Albumin 2.9L, Globulin 3.9, Albumin/Globulin Ratio 0.7L Current Medications Medications (Trade) Dose Ordered Sig/Lora Route PRN Reason Start Time Stop Time Status Last Admin Dose Admin Acetaminophen (Tylenol) 650 mg Q4H PRN ORAL fever 03/27/19 13:30 04/26/19 13:29 Amlodipine Besylate (Norvasc) 5 mg DAILY ORAL 03/28/19 09:00 04/27/19 08:59 04/02/19 08:28 Barium Sulfate (Varibar Honey) 250 ml NOW PRN MC RAD 03/31/19 12:45 04/03/19 12:39 Barium Sulfate (Varibar [place]) 240 ml NOW PRN MC RAD 03/31/19 12:45 04/03/19 12:39 Barium Sulfate (Varibar Pudding) 230 ml NOW PRN MC RAD 03/31/19 12:45 04/03/19 12:39 Dextrose (Dextrose 50%) 25 ml Q30M PRN IV Hypoglycemia 03/27/19 13:30 04/26/19 13:29 Dextrose (Dextrose 50%) 50 ml Q30M PRN IV Hypoglycemia 03/27/19 13:30 04/26/19 13:29 Heparin Sodium (Porcine) (Heparin 5000 units/ml) 5,000 units EVERY 12 HOURS SUBQ 03/27/19 21:00 04/26/19 20:59 04/02/19 08:29 Insulin Aspart (NovoLOG) BEFORE MEALS AND HS SUBQ 03/27/19 16:30 04/26/19 16:29 04/01/19 22:16 Lorazepam (Ativan 2mg/ml 1ml) 0.5 mg Q4H PRN IV For Anxiety 03/27/19 13:30 04/03/19 13:29 Memantine (Namenda) 5 mg DAILY ORAL 03/28/19 09:00 04/27/19 08:59 04/02/19 08:27 Morphine Sulfate (Morphine Sulfate) 1 mg Q4H PRN IVP For Pain 03/27/19 13:30 04/03/19 13:29 04/02/19 01:03 Ondansetron HCl (Zofran) 4 mg Q6H PRN IVP Nausea & Vomiting 03/27/19 13:30 04/26/19 13:29 Pantoprazole (Protonix) 40 mg EVERY 12 HOURS ORAL 03/28/19 21:00 04/27/19 20:59 04/02/19 08:27 Piperacillin Sod/ Tazobactam Sod 3.375 gm/Sodium Chloride 110 ml @ 27.5 mls/hr Q12H IVPB 03/28/19 12:00 04/04/19 11:59 04/02/19 11:35 Polyethylene Glycol (Miralax) 17 gm HSPRN PRN ORAL Constipation 03/27/19 13:30 04/26/19 13:29 Pravastatin Sodium (Pravachol) 20 mg BEDTIME ORAL 03/27/19 21:00 04/26/19 20:59 04/01/19 20:41 Zolpidem Tartrate (Ambien) 5 mg HSPRN PRN ORAL Insomnia 03/27/19 13:30 04/03/19 13:29 Dony Eli MD Apr 02, 2019 12:08
--- NOTE | 2019-04-02 13:07 | NUR ---
CASE MANAGEMENT:REVIEW 04/02/19 SI: DIVERTICULITIS. ACUTE CHOLECYSTITIS. CHOLELITHIASIS HIDA(+) DUODENAL FISTULA 98.4 78 18 118/60 96% ON RA WBC+12.1 H/H-9.2/29.4 IS:IV ZOSYN Q12 PROTONIX PO Q12 NORVASC PO QD HEPARIN SQ Q12 : MED/SURG STATUS 4 EAS PLAN: MEDICAL MANAGEMENT
--- NOTE | 2019-04-02 13:12 | Internal Med Progress Note ---
Subjective Date of Service: Apr 02, 2019 Physician Name Isaías Atwood Attending Physician Logan Camargo MD Current Medications Medications (Trade) Dose Ordered Sig/Lora Route PRN Reason Start Time Stop Time Status Last Admin Dose Admin Acetaminophen (Tylenol) 650 mg Q4H PRN ORAL fever 03/27/19 13:30 04/26/19 13:29 Amlodipine Besylate (Norvasc) 5 mg DAILY ORAL 03/28/19 09:00 04/27/19 08:59 04/02/19 08:28 Barium Sulfate (Varibar Honey) 250 ml NOW PRN MC RAD 03/31/19 12:45 04/03/19 12:39 Barium Sulfate (Varibar [place]) 240 ml NOW PRN MC RAD 03/31/19 12:45 04/03/19 12:39 Barium Sulfate (Varibar Pudding) 230 ml NOW PRN MC RAD 03/31/19 12:45 04/03/19 12:39 Dextrose (Dextrose 50%) 25 ml Q30M PRN IV Hypoglycemia 03/27/19 13:30 04/26/19 13:29 Dextrose (Dextrose 50%) 50 ml Q30M PRN IV Hypoglycemia 03/27/19 13:30 04/26/19 13:29 Heparin Sodium (Porcine) (Heparin 5000 units/ml) 5,000 units EVERY 12 HOURS SUBQ 03/27/19 21:00 04/26/19 20:59 04/02/19 08:29 Insulin Aspart (NovoLOG) BEFORE MEALS AND HS SUBQ 03/27/19 16:30 04/26/19 16:29 04/01/19 22:16 Lorazepam (Ativan 2mg/ml 1ml) 0.5 mg Q4H PRN IV For Anxiety 03/27/19 13:30 04/03/19 13:29 Memantine (Namenda) 5 mg DAILY ORAL 03/28/19 09:00 04/27/19 08:59 04/02/19 08:27 Morphine Sulfate (Morphine Sulfate) 1 mg Q4H PRN IVP For Pain 03/27/19 13:30 04/03/19 13:29 04/02/19 01:03 Ondansetron HCl (Zofran) 4 mg Q6H PRN IVP Nausea & Vomiting 03/27/19 13:30 04/26/19 13:29 Pantoprazole (Protonix) 40 mg EVERY 12 HOURS ORAL 03/28/19 21:00 04/27/19 20:59 04/02/19 08:27 Piperacillin Sod/ Tazobactam Sod 3.375 gm/Sodium Chloride 110 ml @ 27.5 mls/hr Q12H IVPB 03/28/19 12:00 04/04/19 11:59 04/02/19 11:35 Polyethylene Glycol (Miralax) 17 gm HSPRN PRN ORAL Constipation 03/27/19 13:30 04/26/19 13:29 Pravastatin Sodium (Pravachol) 20 mg BEDTIME ORAL 03/27/19 21:00 04/26/19 20:59 04/01/19 20:41 Zolpidem Tartrate (Ambien) 5 mg HSPRN PRN ORAL Insomnia 03/27/19 13:30 04/03/19 13:29 Allergies: Coded Allergies: No Known Allergies (Unverified , 04/03/17) ROS Limited/Unobtainable: No Constitutional: Reports: no symptoms HEENT: Reports: no symptoms Cardiovascular: Reports: no symptoms Respiratory: Reports: no symptoms Gastrointestinal/Abdominal: Reports: no symptoms Genitourinary: Reports: no symptoms Neurologic/Psychiatric: Reports: no symptoms Subjective 83 YO F admitted with right upper quadrant pain. Now acute cholecystitis and cholelithiasis. Cover for Int Med-Dr Camargo. S/P endoscopy 04/01/19 Objective Last Vital Signs Date Time Temp Pulse Resp B/P (MAP) Pulse Ox O2 Delivery O2 Flow Rate FiO2 04/02/19 09:00 Room Air 04/02/19 08:28 78 118/60 04/02/19 08:00 98.4 18 96 Laboratory Tests Test 04/02/19 04:54 White Blood Count 12.1 K/UL (4.8-10.8) H Red Blood Count 3.29 M/UL (4.20-5.40) L Hemoglobin 9.2 G/DL (12.0-16.0) L Hematocrit 29.4 % (37.0-47.0) L Mean Corpuscular Volume 89 FL (80-99) Mean Corpuscular Hemoglobin 27.9 PG (27.0-31.0) Mean Corpuscular Hemoglobin Concent 31.3 G/DL (32.0-36.0) L Red Cell Distribution Width 13.8 % (11.6-14.8) Platelet Count 454 K/UL (150-450) H Mean Platelet Volume 4.8 FL (6.5-10.1) L Neutrophils (%) (Auto) 65.3 % (45.0-75.0) Lymphocytes (%) (Auto) 21.2 % (20.0-45.0) Monocytes (%) (Auto) 11.9 % (1.0-10.0) H Eosinophils (%) (Auto) 1.2 % (0.0-3.0) Basophils (%) (Auto) 0.5 % (0.0-2.0) Sodium Level 141 MMOL/L (136-145) Potassium Level 4.2 MMOL/L (3.5-5.1) Chloride Level 105 MMOL/L (98-107) Carbon Dioxide Level 30 MMOL/L (21-32) Anion Gap 6 mmol/L (5-15) Blood Urea Nitrogen 9 mg/dL (7-18) Creatinine 0.8 MG/DL (0.55-1.30) Estimat Glomerular Filtration Rate mL/min (>60) Glucose Level 97 MG/DL (74-106) Calcium Level 9.2 MG/DL (8.5-10.1) Total Bilirubin 0.3 MG/DL (0.2-1.0) Aspartate Amino Transf (AST/SGOT) 31 U/L (15-37) Alanine Aminotransferase (ALT/SGPT) 104 U/L (12-78) H Alkaline Phosphatase 183 U/L (46-116) H Total Protein 6.8 G/DL (6.4-8.2) Albumin 2.9 G/DL (3.4-5.0) L Globulin 3.9 g/dL Albumin/Globulin Ratio 0.7 (1.0-2.7) L Intake and Output 04/01/19 04/02/19 19:00 07:00 Intake Total 1085.0 ml 110.0 ml Output Total 0 ml Balance 1085.0 ml 110.0 ml IV Total 285.0 ml 110.0 ml Other 800 ml Output Estimated Blood Loss 0 ml # Voids 2 Objective PHYSICAL EXAMINATION: GENERAL: The patient is a well-developed and well-nourished female, in no apparent distress. HEENT: Eyes, pupils are equal and responsive to light and accommodation. Extraocular movements are intact. NECK: Supple without lymphadenopathy. CHEST: Lungs are clear to auscultation bilaterally without wheezes or rales. CARDIOVASCULAR: Regular rhythm and rate. S1, S2 normal without murmurs, rubs, or gallops. ABDOMEN: Soft, nondistended with decreased bowel sounds. There is pain to palpation to right upper quadrant. No evidence of rebound or guarding noted. EXTREMITIES: Negative for clubbing, cyanosis, or edema. RECTAL/GENITAL: Not performed. NEUROLOGIC: Cranial nerves II through XII are grossly intact without focal deficits. Motor strength is 5/5 bilaterally. Deep tendon reflexes are 2+ plantar. Assessment/Plan Assessment/Plan ASSESSMENT: This is an 83-year-old female with: 1. Right upper quadrant pain. 2. Acute cholecystitis. 3. Cholelithiasis. 4. Elevated liver function tests. 5. Diverticulitis. 6. Diabetes type 2. 7. Hypertension. 8. Hypercholesterolemia. 9. Asthma. 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 Occult pos stool TREATMENT: 1. Right upper quadrant pain/diverticulitis. A Gastroenterology consultation has been obtained with Dr. Panda Friedman. 2. Acute cholecystitis/cholelithiasis. 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 S/P endoscopy 04/01/19= large stone in duodenem and tricia-duodenal fistula A General Surgery consultation has been obtained with Dr. Perez. The patient has been started empirically on intravenous ciprofloxacin and metronidazole. Surgery date is pending 3. Elevated liver function tests. Improving. As above, a Gastroenterology consultation has been obtained with Dr. Panda Friedman. Possible colonoscopy and endoscopy for occult blood source 4. Diabetes type 2. The patient has been placed on NovoLog sliding scale. 5. Hypertension. The patient is currently hypotensive. Hold amlodipine above. 6. Hypercholesterolemia. Continue simvastatin 20 mg p.o. daily. 7. Asthma. Isaías Atwood MD Apr 02, 2019 13:12
--- NOTE | 2019-04-02 13:58 | NUR ---
SWALLOW STATUS: UPDATES: PER GI DR WALLACE YESTERDAY EGD: SUMMARY OF FINDINGS: 1. Hiatal hernia. 2. Gastritis, status post biopsy. 3. Possible stone stuck in the duodenal bulb from the gallbladder fistula. RECOMMENDATIONS: 1. Follow up biopsy results and treat accordingly. 2. Keep the patient NPO for now. 3. Monitor labs. GOALS FOR INTAKE STILL NOT MET PT DOES NOT HAVE AN APPETITE. ENCOURAGED TO DRINK HER GLUCERNA AND SHE SAID SHE WILL TRY. NO OVERT S/S OF ASPIRATION REPORTED/OBSERVED DURING MEALS. STAFF EDUCATED/TRAINED IN POSTED ASPIRATION AND REFLUX PRECAUTIONS. PATIENT TO HAVE SURGERY TOMORROW MORNING . PLAN: F/UP ON SUNDAY (SEE PLAN OF CARE IN MOD BARIUM SWALLOW STUDY REPORT)
--- NOTE | 2019-04-02 15:11 | Infectious Diseases Prog Note ---
Assessment/Plan Assessment/Plan A: 83 yo female with PMHx of DM, HTN and Asthma who presented to the ED on 03/27/19 with 4 days of abdominal pain. Probable cholecystitis (? fistula) Transaminitis improving 04/01 EGD: Gastritis, status post biopsy. Possible stone stuck in the duodenal bulb from the gallbladder fistula CT abd 03/27/19 - Severe distention of the gallbladder, wall thickening, secondary to a large intraluminal gallstones. Cholecystitis is suspected. Correlate clinically. 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 There does appear to be some radiotracer filling the extremely distorted gallbladder, but this could be from the bowel connection, rather than the cystic duct. Leukocytosis -mild ( post EGD) No Fever DM HTN HLD Asthma Arthritis PLAN - Continue Zosyn # 7 /10 - f/u Surgery recs - - Monitor CBC and temps . Subjective Allergies: Coded Allergies: No Known Allergies (Unverified , 04/03/17) Subjective no acute event Objective Vital Signs Last 24 Hour Vital Signs Date Time Temp Pulse Resp B/P (MAP) Pulse Ox O2 Delivery O2 Flow Rate FiO2 04/02/19 09:00 Room Air 04/02/19 08:28 78 118/60 04/02/19 08:00 98.4 78 18 118/60 (79) 96 04/02/19 04:00 98.5 70 20 134/54 (80) 94 04/02/19 00:00 97.9 84 18 140/63 (88) 97 04/01/19 21:00 Room Air 04/01/19 20:00 99.0 78 17 145/63 (90) 96 04/01/19 16:00 97.7 81 18 154/90 (111) 96 Height (Feet): 4 Height (Inches): 3.00 Weight (Pounds): 94 HEENT: mucous membranes moist Respiratory/Chest: normal breath sounds Cardiovascular: normal rate Abdomen: no organomegaly Laboratory Tests Test 04/02/19 04:54 White Blood Count 12.1 K/UL (4.8-10.8) H Red Blood Count 3.29 M/UL (4.20-5.40) L Hemoglobin 9.2 G/DL (12.0-16.0) L Hematocrit 29.4 % (37.0-47.0) L Mean Corpuscular Volume 89 FL (80-99) Mean Corpuscular Hemoglobin 27.9 PG (27.0-31.0) Mean Corpuscular Hemoglobin Concent 31.3 G/DL (32.0-36.0) L Red Cell Distribution Width 13.8 % (11.6-14.8) Platelet Count 454 K/UL (150-450) H Mean Platelet Volume 4.8 FL (6.5-10.1) L Neutrophils (%) (Auto) 65.3 % (45.0-75.0) Lymphocytes (%) (Auto) 21.2 % (20.0-45.0) Monocytes (%) (Auto) 11.9 % (1.0-10.0) H Eosinophils (%) (Auto) 1.2 % (0.0-3.0) Basophils (%) (Auto) 0.5 % (0.0-2.0) Sodium Level 141 MMOL/L (136-145) Potassium Level 4.2 MMOL/L (3.5-5.1) Chloride Level 105 MMOL/L (98-107) Carbon Dioxide Level 30 MMOL/L (21-32) Anion Gap 6 mmol/L (5-15) Blood Urea Nitrogen 9 mg/dL (7-18) Creatinine 0.8 MG/DL (0.55-1.30) Estimat Glomerular Filtration Rate mL/min (>60) Glucose Level 97 MG/DL (74-106) Calcium Level 9.2 MG/DL (8.5-10.1) Total Bilirubin 0.3 MG/DL (0.2-1.0) Aspartate Amino Transf (AST/SGOT) 31 U/L (15-37) Alanine Aminotransferase (ALT/SGPT) 104 U/L (12-78) H Alkaline Phosphatase 183 U/L (46-116) H Total Protein 6.8 G/DL (6.4-8.2) Albumin 2.9 G/DL (3.4-5.0) L Globulin 3.9 g/dL Albumin/Globulin Ratio 0.7 (1.0-2.7) L Current Medications Medications (Trade) Dose Ordered Sig/Lora Route PRN Reason Start Time Stop Time Status Last Admin Dose Admin Acetaminophen (Tylenol) 650 mg Q4H PRN ORAL fever 03/27/19 13:30 04/26/19 13:29 Amlodipine Besylate (Norvasc) 5 mg DAILY ORAL 03/28/19 09:00 04/27/19 08:59 04/02/19 08:28 Barium Sulfate (Varibar Honey) 250 ml NOW PRN RAD 03/31/19 12:45 04/03/19 12:39 Barium Sulfate (Varibar [place]) 240 ml NOW PRN RAD 03/31/19 12:45 04/03/19 12:39 Barium Sulfate (Varibar Pudding) 230 ml NOW PRN RAD 03/31/19 12:45 04/03/19 12:39 Dextrose (Dextrose 50%) 25 ml Q30M PRN IV Hypoglycemia 03/27/19 13:30 04/26/19 13:29 Dextrose (Dextrose 50%) 50 ml Q30M PRN IV Hypoglycemia 03/27/19 13:30 04/26/19 13:29 Heparin Sodium (Porcine) (Heparin 5000 units/ml) 5,000 units EVERY 12 HOURS SUBQ 03/27/19 21:00 04/26/19 20:59 04/02/19 08:29 Insulin Aspart (NovoLOG) BEFORE MEALS AND HS SUBQ 03/27/19 16:30 04/26/19 16:29 04/01/19 22:16 Lorazepam (Ativan 2mg/ml 1ml) 0.5 mg Q4H PRN IV For Anxiety 03/27/19 13:30 04/03/19 13:29 Memantine (Namenda) 5 mg DAILY ORAL 03/28/19 09:00 04/27/19 08:59 04/02/19 08:27 Morphine Sulfate (Morphine Sulfate) 1 mg Q4H PRN IVP For Pain 03/27/19 13:30 04/03/19 13:29 04/02/19 01:03 Ondansetron HCl (Zofran) 4 mg Q6H PRN IVP Nausea & Vomiting 03/27/19 13:30 04/26/19 13:29 Pantoprazole (Protonix) 40 mg EVERY 12 HOURS ORAL 03/28/19 21:00 04/27/19 20:59 04/02/19 08:27 Piperacillin Sod/ Tazobactam Sod 3.375 gm/Sodium Chloride 110 ml @ 27.5 mls/hr Q12H IVPB 03/28/19 12:00 04/04/19 11:59 04/02/19 11:35 Polyethylene Glycol (Miralax) 17 gm HSPRN PRN ORAL Constipation 03/27/19 13:30 04/26/19 13:29 Pravastatin Sodium (Pravachol) 20 mg BEDTIME ORAL 03/27/19 21:00 04/26/19 20:59 04/01/19 20:41 Zolpidem Tartrate (Ambien) 5 mg HSPRN PRN ORAL Insomnia 03/27/19 13:30 04/03/19 13:29 Maksim Davis MD Apr 02, 2019 15:11
--- NOTE | 2019-04-02 15:12 | Diagnostic Imaging Report ---
Indication: Abdominal pain, abnormal duodenum on prior endoscopy with evidence of cholecystoduodenal fistula Technique: Coronal and axial single shot fast spin-echo breath-hold, axial T2 FRFSE, 2-D thick slab MRCP, AXIAL 2-D FIESTA fat saturated, axial 3-D dual echo breath-hold, water weighted axial LAVA FLEX, revealed 3-D MRCP images were obtained of the abdomen. MIP reconstructions were generated of the bile ducts Comparison: CT scan dated 03/18/2019 Findings: The gallbladder is distended by 2 very large gallstones. The anatomy is markedly distorted by these, as they are not in parallel with the gallbladder lumen but rather the smaller stone is located eccentrically and results in protrusion of the posterior wall of the gallbladder. The largest stone is ovoid, measures 6.5 x 4.3 cm in diameter. The second stone is round, measures 2.4 cm in diameter. Reportedly, recent endoscopy demonstrates protrusion of a calculus into the duodenal lumen. The proximal duodenal anatomy is not well visualized as it in the gastric antrum are displaced by the larger calculus. However, what appears to be soft tissue signal at the medial aspect of the larger gallstone signal void may represent the duodenal lumen. This is possibly in communication with the bladder lumen, although this is more clearly evident as such on the recent CT scan, which does show some gas within the gallbladder lumen. What may be a few gas bubbles are also evident in the gallbladder lumen on the current exam. Signal voids in the gallbladder fundus may represent gas or small stones. The gallbladder wall is thickened. This is also evident on prior CT scan. There is mild dilatation of the common hepatic duct, which up to 10 mm in diameter. There is minimal central intrahepatic biliary ductal dilatation. The common bile duct tapers down to normal caliber, and there is no evidence of downstream obstruction. The pancreatic duct is slightly prominent in caliber. The liver, pancreas, spleen, adrenals, kidneys are unremarkable. There is thoracolumbar scoliotic deformity. The included bowel is unremarkable. No gross pelvic mass or adenopathy. The uterus is not visualized Impression: 2 very large gallstones, as described. 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 There is a signal void within the gallbladder lumen likely reflect gas that is visible on recent CT scan and is presumably related to the communication of the gallbladder lumen to the duodenal lumen.. Mild dilatation of the common hepatic duct. Probably related to extrinsic compression by the above Other findings as noted, including scoliotic deformity, evidence of prior hysterectomy
--- NOTE | 2019-04-02 15:52 | Anethesia Preoperative Eval ---
Anesthesia Pre-op PMH/ROS General Date of Evaluation: Apr 02, 2019 Time of Evaluation: 15:51 Anesthesiologist: Padma ASA Score: ASA 4 Mallampati Score Class I : Soft palate, uvula, fauces, pillars visible Class II: Soft palate, uvula, fauces visible Class III: Soft palate, base of uvula visible Class IV: Only hard plate visible Mallampati Classification: Class II Surgeon: Chris Diagnosis: Cholecystitis Surgical Procedure: Lap Tricia Family History: no anesthesia problems Allergies: Coded Allergies: No Known Allergies (Unverified , 04/03/17) Medications: see eMAR Patient NPO?: Yes NPO Date: Apr 02, 2019 NPO Time: 23:59 Past Medical History Cardiovascular: Reports: HTN, CAD; Denies: IL, valve dz, arrhythmia, other Pulmonary: Reports: asthma; Denies: COPD, PIEDAD, other Gastrointestinal/Genitourinary: Reports: other - Hepatitis; Denies: GERD, CRI, ESRD Neurologic/Psychiatric: Denies: dementia, CVA, depression/anxiety, TIA, other Endocrine: Reports: DM; Denies: hypothyroidism, steroids, other HEENT: Denies: cataract (L), cataract (R), glaucoma, [place] (L), [place] (R), other Hematology/Immune: Reports: anemia; Denies: DVT, bleeding disorder, other Musculoskeletal/Integumentary: Reports: OA; Denies: RA, DJD, DDD, edema, other PMH Narrative: DM HTN HLD Asthma Arthritis PSxH Narrative: 04/01 endoscopy Anesthesia Pre-op Phys. Exam Physician Exam Last Vital Signs Date Time Temp Pulse Resp B/P (MAP) Pulse Ox O2 Delivery O2 Flow Rate FiO2 04/02/19 09:00 Room Air 04/02/19 08:28 78 118/60 04/02/19 08:00 98.4 18 96 Constitutional: NAD Cardiovascular: RRR Respiratory: CTA Gastrointestinal: S/NT/ND Airway Exam Mallampati Classification 2 Mallampati Score: Class II Neck: normal TMD: 2fb ROM: full Teeth: missing Anesthesia Pre-op A/P Labs Hematology Test 04/02/19 04:54 White Blood Count 12.1 K/UL (4.8-10.8) H Red Blood Count 3.29 M/UL (4.20-5.40) L Hemoglobin 9.2 G/DL (12.0-16.0) L Hematocrit 29.4 % (37.0-47.0) L Mean Corpuscular Volume 89 FL (80-99) Mean Corpuscular Hemoglobin 27.9 PG (27.0-31.0) Mean Corpuscular Hemoglobin Concent 31.3 G/DL (32.0-36.0) L Red Cell Distribution Width 13.8 % (11.6-14.8) Platelet Count 454 K/UL (150-450) H Mean Platelet Volume 4.8 FL (6.5-10.1) L Neutrophils (%) (Auto) 65.3 % (45.0-75.0) Lymphocytes (%) (Auto) 21.2 % (20.0-45.0) Monocytes (%) (Auto) 11.9 % (1.0-10.0) H Eosinophils (%) (Auto) 1.2 % (0.0-3.0) Basophils (%) (Auto) 0.5 % (0.0-2.0) Chemistry Test 04/02/19 04:54 Sodium Level 141 MMOL/L (136-145) Potassium Level 4.2 MMOL/L (3.5-5.1) Chloride Level 105 MMOL/L (98-107) Carbon Dioxide Level 30 MMOL/L (21-32) Anion Gap 6 mmol/L (5-15) Blood Urea Nitrogen 9 mg/dL (7-18) Creatinine 0.8 MG/DL (0.55-1.30) Estimat Glomerular Filtration Rate mL/min (>60) Glucose Level 97 MG/DL (74-106) Calcium Level 9.2 MG/DL (8.5-10.1) Total Bilirubin 0.3 MG/DL (0.2-1.0) Aspartate Amino Transf (AST/SGOT) 31 U/L (15-37) Alanine Aminotransferase (ALT/SGPT) 104 U/L (12-78) H Alkaline Phosphatase 183 U/L (46-116) H Total Protein 6.8 G/DL (6.4-8.2) Albumin 2.9 G/DL (3.4-5.0) L Globulin 3.9 g/dL Albumin/Globulin Ratio 0.7 (1.0-2.7) L Studies Pre-op Studies: EKG - SR Risk Assessment & Plan Plan: General Status Change Before Surgery: Talisha Weston CRNA Apr 02, 2019 15:52
[2019-04-02 16:00] VITALS: BP 131/59
--- NOTE | 2019-04-02 18:07 | Diagnostic Imaging Report ---
Indications: Dysphagia Technique: Patient ingested multiple substances under the supervision of speech pathology. Video fluoroscopic recording performed. Total fluoroscopy time 304 seconds. Total dose area product [id number] mGycm2 Total number of images-17 Comparison: none Findings: There is occasional trace penetration of thin liquid barium. No delroy aspiration. No significant early or delayed pooling of thin liquid barium. Equivocal trace penetration of nectar thick liquid barium noted. No delroy aspiration. There is some early pooling in the vallecula. Ingestion of honey thick liquid barium, barium puree, and barium-soaked solid are uneventful Impression: Positive for penetration of thin liquid barium. No evidence of aspiration. Equivocal penetration of nectar thick liquid barium
--- NOTE | 2019-04-02 19:21 | NUR ---
HAND-OFF: Report given to DIMITRIOS Sierra.
--- NOTE | 2019-04-02 19:36 | NUR ---
NURSE NOTES: Received patient in bed, family at bedside, consent is signed for pending procedure for tomorrow 04/03/2019. MD was made aware. Patient will be NPO past midnight. Patient is in no acute distress, ambulatory with steady gate, [place] speaker, able to make her needs known. Call light is within reach, bed lowered, locked, alarm is on. Will continue to assess for comfort and safety.
[2019-04-02 20:00] VITALS: BP 143/62
--- NOTE | 2019-04-02 21:47 | Surgery Progress Note ---
Surgery Progress Note Subjective Additional Comments leukocytosis mri noted Objective Last 24 Hour Vital Signs Date Time Temp Pulse Resp B/P (MAP) Pulse Ox O2 Delivery O2 Flow Rate FiO2 04/02/19 21:02 Room Air 04/02/19 20:00 97.9 87 20 143/62 (89) 04/02/19 16:00 97.9 87 18 131/59 (83) 96 04/02/19 09:00 Room Air 04/02/19 08:28 78 118/60 04/02/19 08:00 98.4 78 18 118/60 (79) 96 04/02/19 04:00 98.5 70 20 134/54 (80) 94 04/02/19 00:00 97.9 84 18 140/63 (88) 97 I&O Intake and Output 04/01/19 04/02/19 19:00 07:00 Intake Total 1085.0 ml 110.0 ml Output Total 0 ml Balance 1085.0 ml 110.0 ml IV Total 285.0 ml 110.0 ml Other 800 ml Output Estimated Blood Loss 0 ml # Voids 2 Drains: none Cardiovascular: RSR Respiratory: clear Abdomen: soft, flat, non-tender, present bowel sounds, other Extremities: no edema, no tenderness, no cyanosis Laboratory Tests Test 04/02/19 04:54 White Blood Count 12.1 K/UL (4.8-10.8) H Red Blood Count 3.29 M/UL (4.20-5.40) L Hemoglobin 9.2 G/DL (12.0-16.0) L Hematocrit 29.4 % (37.0-47.0) L Mean Corpuscular Volume 89 FL (80-99) Mean Corpuscular Hemoglobin 27.9 PG (27.0-31.0) Mean Corpuscular Hemoglobin Concent 31.3 G/DL (32.0-36.0) L Red Cell Distribution Width 13.8 % (11.6-14.8) Platelet Count 454 K/UL (150-450) H Mean Platelet Volume 4.8 FL (6.5-10.1) L Neutrophils (%) (Auto) 65.3 % (45.0-75.0) Lymphocytes (%) (Auto) 21.2 % (20.0-45.0) Monocytes (%) (Auto) 11.9 % (1.0-10.0) H Eosinophils (%) (Auto) 1.2 % (0.0-3.0) Basophils (%) (Auto) 0.5 % (0.0-2.0) Sodium Level 141 MMOL/L (136-145) Potassium Level 4.2 MMOL/L (3.5-5.1) Chloride Level 105 MMOL/L (98-107) Carbon Dioxide Level 30 MMOL/L (21-32) Anion Gap 6 mmol/L (5-15) Blood Urea Nitrogen 9 mg/dL (7-18) Creatinine 0.8 MG/DL (0.55-1.30) Estimat Glomerular Filtration Rate mL/min (>60) Glucose Level 97 MG/DL (74-106) Calcium Level 9.2 MG/DL (8.5-10.1) Total Bilirubin 0.3 MG/DL (0.2-1.0) Aspartate Amino Transf (AST/SGOT) 31 U/L (15-37) Alanine Aminotransferase (ALT/SGPT) 104 U/L (12-78) H Alkaline Phosphatase 183 U/L (46-116) H Total Protein 6.8 G/DL (6.4-8.2) Albumin 2.9 G/DL (3.4-5.0) L Globulin 3.9 g/dL Albumin/Globulin Ratio 0.7 (1.0-2.7) L Plan Problems: (1) Cholecystitis Assessment & Plan: Improving labs improved pain improved diet cont with medical management HIDA results concerning CT demonstrates a 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 There does appear to be some radiotracer filling the extremely distorted gallbladder, but this could be from the bowel connection, rather than the cystic duct. will need to review studies with radiologist first when they are available. 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 She is in the early stages of developing a gallstone ileus with a very strong possibility of a blockage both at the duodenum or distally. I will need to have a discussion with the family regards to this and surgical intervention Findings: The gallbladder is distended by 2 very large gallstones. The anatomy is markedly distorted by these, as they are not in parallel with the gallbladder lumen but rather the smaller stone is located eccentrically and results in protrusion of the posterior wall of the gallbladder. The largest stone is ovoid, measures 6.5 x 4.3 cm in diameter. The second stone is round, measures 2.4 cm in diameter. Reportedly, recent endoscopy demonstrates protrusion of a calculus into the duodenal lumen. The proximal duodenal anatomy is not well visualized as it in the gastric antrum are displaced by the larger calculus. However, what appears to be soft tissue signal at the medial aspect of the larger gallstone signal void may represent the duodenal lumen. This is possibly in communication with the bladder lumen, although this is more clearly evident as such on the recent CT scan, which does show some gas within the gallbladder lumen. What may be a few gas bubbles are also evident in the gallbladder lumen on the current exam. Signal voids in the gallbladder fundus may represent gas or small stones. The gallbladder wall is thickened. This is also evident on prior CT scan. There is mild dilatation of the common hepatic duct, which up to 10 mm in diameter. There is minimal central intrahepatic biliary ductal dilatation. The common bile duct tapers down to normal caliber, and there is no evidence of downstream obstruction. The pancreatic duct is slightly prominent in caliber. The liver, pancreas, spleen, adrenals, kidneys are unremarkable. There is thoracolumbar scoliotic deformity. The included bowel is unremarkable. No gross pelvic mass or adenopathy. The uterus is not visualized Impression: 2 very large gallstones, as described. 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 There is a signal void within the gallbladder lumen likely reflect gas that is visible on recent CT scan and is presumably related to the communication of the gallbladder lumen to the duodenal lumen.. Findings: The gallbladder is severely distended with wall thickening secondary to very large stones within the lumen. For example one of the stones measures about 6 x 3 cm. There is another stone and measures 2.7 cm. Cholecystitis is suspected. Biliary ducts are mildly prominent. The sigmoid colon appears abnormal. There are diverticula with ill-definition of the wall and slight thickening of the wall. Diverticulitis is not excluded and should be considered as well. There is an umbilical hernia containing fat. Bowel gas pattern is nonobstructive appendix is probably seen partially and unremarkable as such. The aorta and iliac arteries are tortuous moderately calcified. Bladder is nondistended. There is no ascites. There is no hydronephrosis, adrenal mass or splenomegaly. Pancreas is unremarkable. There is a hiatal hernia. Minimal streaky atelectasis versus scarring at the lung bases noted. There is narrowing of intervertebral discs and accompanying endplate osteophyte formation. Hypertrophied facet joints also demonstrated. Uterus is not seen. IMPRESSION: Severe distention of the gallbladder, wall thickening, secondary to a large intraluminal gallstones. Cholecystitis is suspected. Correlate clinically. Suspected diverticulitis in the sigmoid region with wall thickening and mild perisigmoid inflammation with multiple diverticula in the sigmoid colon and elsewhere in the colon. No abscess. 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 Sonographic Florez's is negative per technologist. The liver is unremarkable. Doppler interrogation of the main portal vein shows patency with hepatopedal, monophasic flow. There is no biliary ductal dilatation identified. The demonstrated part of the pancreas, aorta and IVC show no definite abnormalities. Both kidneys appear unremarkable. There is no hydronephrosis. IMPRESSION: Cholelithiasis Had a long discussion today at the bedside with the patient and her son. States that there is no other family insisted to them. I discussed with them the CT HIDA scan and ultrasound findings in detail. I discussed with them the concerns for a gallbladder enteric fistula and the potential of gallstone ileus and her large car stones and the inflammation identified on the CT and these findings. We discussed how she is significantly improved and currently asymptomatic and recovering well. We discussed her age her medical comorbidities and her overall condition. I asked the patient and her son to consider her options of possible surgical versus nonsurgical intervention. I explained to him that given these findings that were discovered on her imaging that if she does truly have a fistula between the gallbladder and the duodenum with these large stones and her bladder findings there is potential for possible insult in the future which could be concerning. I explained to him that there is consideration for surgical intervention with cholecystectomy and if necessary division/repair of the fistula. I explained to him that this will likely be a major surgery and would require open surgery rather than laparoscopic and does have potential morbidity and even chance of mortality. Patient's son seem to understand. I explained to him currently she is doing well we will advance her diet and continue the antibiotics and medical management of her acute event. If they do decide to proceed with surgery I will discuss with them the appropriate timing of doing so. (3) Diverticulitis Assessment & Plan: medical management (4) Elevated liver enzymes Assessment & Plan: hep panel labs trend will monitor (5) Failure to thrive in adult Assessment & Plan: diet as tolerated Additional Comments discussed findings with patient and son MRI, EGD, CT wbc now very concerning family and patient have been informed of all details and options. in depth conversation about surgery, risks, benefits, alternatives. we discussed how large surgery may be and how invasive. as well as possible morbidity and morality they have decided to proceed with surgery and understands above npo OR in AM consent Alexandro Perez Apr 02, 2019 21:47
--- NOTE | 2019-04-02 21:49 | Pre-Procedure Note/Attestation ---
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 I attest that, if there was a reasonable possibility of needing a blood transfusion, the patient (or the patient's legal outreach representative) was given the [place] Department [employer] standardized written summary, pursuant to the Niko Nir Blood Safety Act ([place] Health and Safety Code # 1645, as amended). I attest that I re-evaluated the patient just prior to the surgery and that there has been no change in the patient's H&P, except as documented below: Alexandro Perez Apr 02, 2019 21:49
[2019-04-03] VITALS (20 sets, daily range): BP systolic 123–165; BP diastolic 48–87
[2019-04-03 00:53] LABS: BASOPHILS % (AUTO) 0.8 % (0.0-2.0); EOSINOPHILS % (AUTO) 2.6 % (0.0-3.0); HEMATOCRIT 27.4 % (37.0-47.0); HEMOGLOBIN 8.9 G/DL (12.0-16.0); LYMPHOCYTES % (AUTO) 20.3 % (20.0-45.0); MEAN CORPUSCULAR VOLUME 88 FL (80-99); MONOCYTES % (AUTO) 13.2 % (1.0-10.0); PLATELET COUNT 435 K/UL (150-450); RED BLOOD COUNT 3.13 M/UL (4.20-5.40); RED CELL DISTRIBUTION WIDTH 13.6 % (11.6-14.8); WHITE BLOOD COUNT 8.6 K/UL (4.8-10.8)
[2019-04-03] MEDS: Piperacillin/Tazobactam 3.375 GM in NS 110 ML IVPB SCH (01:01)
[2019-04-03 01:03] LABS: ALANINE AMINOTRANSFERASE 88 U/L (12-78); ALBUMIN 2.8 G/DL (3.4-5.0); ALBUMIN/GLOBULIN RATIO 0.7 (1.0-2.7); ALKALINE PHOSPHATASE 166 U/L (46-116); ANION GAP 4 mmol/L (5-15); ASPARTATE AMINO TRANSFERASE 23 U/L (15-37); BILIRUBIN,TOTAL 0.3 MG/DL (0.2-1.0); BLOOD UREA NITROGEN 9 mg/dL (7-18); CARBON DIOXIDE 32 MMOL/L (21-32); CHLORIDE 102 MMOL/L (98-107); CREATININE 0.8 MG/DL (0.55-1.30); POTASSIUM 4.3 MMOL/L (3.5-5.1); SODIUM 138 MMOL/L (136-145)
[2019-04-03 01:40] LABS: INR 0.9 (0.9-1.1)
[2019-04-03] MEDS: NovoLOG Insulin Flexpen SUBQ SCH (05:58)
[2019-04-03] MEDS ORDERED: Rocuronium Bromide 50mg/5ml Inj IV ONE (07:03)
[2019-04-03] MEDS ORDERED: Propofol 200mg/20ml IV ONE (07:13)
[2019-04-03] MEDS ORDERED: fentaNYL 100 mcg/2 mL ONE (07:13)
[2019-04-03] MEDS ORDERED: Lidocaine 1% MPF 10mg/ml 5ml ONE (07:13)
[2019-04-03] MEDS ORDERED: Lidocaine 1% 10mg/ml/Epi 0.005mg/ml 30ml vial INJ ONE (07:27)
--- NOTE | 2019-04-03 07:27 | NUR ---
HAND-OFF: Report given to Alvarado PLUNKETT.
[2019-04-03] MEDS ORDERED: Iothalamate Meglumine 60% 30ML INJ ONE (07:28)
--- NOTE | 2019-04-03 07:54 | NUR ---
NURSE NOTES: received report from DIMITRIOS Dillon. patient off unit for cholecystectomy.
[2019-04-03] MEDS ORDERED: NS Irrig 1000ml ONE (08:00)
[2019-04-03] MEDS ORDERED: Sterile Water Irrig 1000ml IRRIG ONE (08:00)
[2019-04-03] MEDS ORDERED: Ketorolac 30mg Inj IV PRN (09:00)
[2019-04-03] MEDS: Heparin 5000 units/ml inj SUBQ SCH ×2 (09:00→21:20)
[2019-04-03] MEDS ORDERED: Hydromorphone 0.5mg/0.5ml inj IVP PRN ×2 (09:00→13:45)
[2019-04-03] MEDS ORDERED: Acetaminophen (Non formulary) 100 ML IV ONE (09:00)
[2019-04-03] MEDS: Memantine 5 MG TAB ORAL SCH (09:00)
[2019-04-03] MEDS ORDERED: Morphine Sulfate 10mg/ml Inj ONE (09:25)
[2019-04-03] MEDS ORDERED: Sodium Chloride 10ml vial INJ ONE (09:26)
[2019-04-03] MEDS ORDERED: Glycopyrrolate 0.2mg/ml 1ml Vial ONE (09:26)
[2019-04-03] MEDS ORDERED: Neostigmine 1mg/ml 10ml Inj ONE (09:26)
--- NOTE | 2019-04-03 09:51 | NUR ---
NURSE NOTES: received call from Surgery. patient will get Zosyn 1200 dose at surgery unit. RN delivered medication and gave it to Kimi.
--- NOTE | 2019-04-03 11:40 | Pulmonology Progress Note ---
Assessment/Plan Problems: (1) duodeno-cholecytic fistula (2) Cholecystitis (3) Cholelithiases (4) Hepatitis (5) Failure to thrive in adult (6) Diabetes mellitus (7) Diverticulitis Assessment/Plan for surgery today continue abx check cultures f/u surgical recommendations sliding scale ileus caused by gall stone. f/u GI recommendations Subjective Interval Events: for surgery today Allergies: Coded Allergies: No Known Allergies (Unverified , 04/03/17) Objective Last 24 Hour Vital Signs Date Time Temp Pulse Resp B/P (MAP) Pulse Ox O2 Delivery O2 Flow Rate FiO2 04/03/19 09:00 Room Air 04/03/19 04:00 98.4 66 20 140/87 (104) 04/03/19 00:00 98.4 74 20 136/62 (86) 04/02/19 21:02 Room Air 04/02/19 20:00 97.9 87 20 143/62 (89) 04/02/19 16:00 97.9 87 18 131/59 (83) 96 Intake and Output 04/02/19 04/03/19 19:00 07:00 Intake Total 710.0 ml Balance 710.0 ml IV Total 110.0 ml Other 600 ml Objective General Appearance: WD/WN HEENT: normocephalic, atraumatic Respiratory/Chest: chest wall non-tender, lungs clear Breasts: no masses Cardiovascular: normal peripheral pulses Abdomen: normal bowel sounds, soft, non tender Genitourinary: normal external genitalia Extremities: no clubbing Neurologic/Psychiatric: 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 technician II-XII grossly normal Lymphatic: no neck adenopathy Laboratory Tests 04/03/19 00:25: White Blood Count 8.6, Red Blood Count 3.13L, Hemoglobin 8.9L, Hematocrit 27.4L , Mean Corpuscular Volume 88, Mean Corpuscular Hemoglobin 28.3, Mean Corpuscular Hemoglobin Concent 32.3, Red Cell Distribution Width 13.6, Platelet Count 435, Mean Platelet Volume 5.2L, Neutrophils (%) (Auto) 63.0, Lymphocytes ( %) (Auto) 20.3, Monocytes (%) (Auto) 13.2H, Eosinophils (%) (Auto) 2.6, Basophils (%) (Auto) 0.8, Erythrocyte Sedimentation Rate 58H, Prothrombin Time 10.0, Prothromb Time International Ratio 0.9, Activated Partial Thromboplast Time 26, Sodium Level 138, Potassium Level 4.3, Chloride Level 102, Carbon Dioxide Level 32, Anion Gap 4L, Blood Urea Nitrogen 9, Creatinine 0.8, Estimat Glomerular Filtration Rate , Glucose Level 124H, Calcium Level 9.0, Total Bilirubin 0.3, Aspartate Amino Transf (AST/SGOT) 23, Alanine Aminotransferase ( ALT/SGPT) 88H, Alkaline Phosphatase 166H, C-Reactive Protein, Quantitative < 0.4 , Total Protein 6.6, Albumin 2.8L, Globulin 3.8, Albumin/Globulin Ratio 0.7L, Lipase 290 Current Medications Medications (Trade) Dose Ordered Sig/Lora Route PRN Reason Start Time Stop Time Status Last Admin Dose Admin Acetaminophen (Tylenol) 650 mg Q4H PRN ORAL fever 03/27/19 13:30 04/26/19 13:29 04/02/19 23:44 Amlodipine Besylate (Norvasc) 5 mg DAILY ORAL 03/28/19 09:00 04/27/19 08:59 04/02/19 08:28 Barium Sulfate (Varibar Honey) 250 ml NOW PRN MC RAD 03/31/19 12:45 04/03/19 12:39 Barium Sulfate (Varibar [place]) 240 ml NOW PRN MC RAD 03/31/19 12:45 04/03/19 12:39 Barium Sulfate (Varibar Pudding) 230 ml NOW PRN RAD 03/31/19 12:45 04/03/19 12:39 Dextrose (Dextrose 50%) 25 ml Q30M PRN IV Hypoglycemia 03/27/19 13:30 04/26/19 13:29 Dextrose (Dextrose 50%) 50 ml Q30M PRN IV Hypoglycemia 03/27/19 13:30 04/26/19 13:29 Heparin Sodium (Porcine) (Heparin 5000 units/ml) 5,000 units EVERY 12 HOURS SUBQ 03/27/19 21:00 04/26/19 20:59 04/02/19 08:29 Hydromorphone HCl (Dilaudid) 0.5 mg Q15M PRN IVP Severe Pain (Pain Scale 7-10) 04/03/19 09:00 04/03/19 15:00 Insulin Aspart (NovoLOG) BEFORE MEALS AND HS SUBQ 03/27/19 16:30 04/26/19 16:29 04/02/19 20:56 Ketorolac Tromethamine (Toradol 30mg) 30 mg Q1H PRN IV Severe Breakthru Pain (>7) 04/03/19 09:00 04/03/19 15:00 Lorazepam (Ativan 2mg/ml 1ml) 0.5 mg Q4H PRN IV For Anxiety 03/27/19 13:30 04/03/19 13:29 Memantine (Namenda) 5 mg DAILY ORAL 03/28/19 09:00 04/27/19 08:59 04/02/19 08:27 Morphine Sulfate (Morphine Sulfate) 1 mg Q4H PRN IVP For Pain 03/27/19 13:30 04/03/19 13:29 04/02/19 01:03 Ondansetron HCl (Zofran) 4 mg Q1H PRN IVP Nausea & Vomiting 04/03/19 09:00 04/03/19 15:00 Ondansetron HCl (Zofran) 4 mg Q6H PRN IVP Nausea & Vomiting 03/27/19 13:30 04/26/19 13:29 Pantoprazole (Protonix) 40 mg EVERY 12 HOURS ORAL 03/28/19 21:00 04/27/19 20:59 04/02/19 20:51 Piperacillin Sod/ Tazobactam Sod 3.375 gm/Sodium Chloride 110 ml @ 27.5 mls/hr Q12H IVPB 03/28/19 12:00 04/05/19 23:59 04/03/19 01:01 Polyethylene Glycol (Miralax) 17 gm HSPRN PRN ORAL Constipation 03/27/19 13:30 04/26/19 13:29 Pravastatin Sodium (Pravachol) 20 mg BEDTIME ORAL 03/27/19 21:00 04/26/19 20:59 04/02/19 20:51 Sodium Chloride 1,000 ml @ 100 mls/hr Q10H IV 04/02/19 22:00 05/02/19 21:59 04/02/19 22:28 Zolpidem Tartrate (Ambien) 5 mg HSPRN PRN ORAL Insomnia 03/27/19 13:30 04/03/19 13:29 Dony Eli MD Apr 03, 2019 11:39
--- NOTE | 2019-04-03 12:02 | GI Progress Note ---
Assessment/Plan Problems: (1) duodeno-cholecytic fistula (2) Diabetes mellitus ICD Codes: E11.9 - Type 2 diabetes mellitus without complications SNOMED: 84878804 (3) Failure to thrive in adult ICD Codes: R62.7 - Adult failure to thrive SNOMED: 185537898 (4) Elevated liver enzymes ICD Codes: R74.8 - Abnormal levels of other serum enzymes SNOMED: 177980840 (5) Hepatitis ICD Codes: K75.9 - Inflammatory liver disease, unspecified SNOMED: 958012636 (6) Diverticulitis ICD Codes: K57.92 - Diverticulitis of intestine, part unspecified, without perforation or abscess without bleeding SNOMED: 934129631 (7) Cholelithiases ICD Codes: K80.20 - Calculus of gallbladder without cholecystitis without obstruction SNOMED: 647739055 (8) Cholecystitis ICD Codes: K81.9 - Cholecystitis, unspecified SNOMED: 04888780 Status: unchanged Status Narrative Discussed with Dr. Friedman. Assessment/Plan Assessment - diverticulitis - abnormal GB with duodenal fistula - ? cholecystitis, ? GB cancer - Anemia - abnormal LFT s/p EGD SUMMARY OF FINDINGS: 1. Hiatal hernia. 2. Gastritis, status post biopsy. 3. Possible stone stuck in the duodenal bulb from the gallbladder fistula. RECOMMENDATIONS: Plan for surgery today pain mgmt monitor for post op N/V will follow The patient was seen and examined at bedside and all new and available data was reviewed in the patients chart. I agree with the above findings, impression and plan. (Patient seen earlier today. Signature stamp does not reflect patient encounter time.). - Panda Friedman MD Subjective Subjective limited Objective Last 24 Hour Vital Signs Date Time Temp Pulse Resp B/P (MAP) Pulse Ox O2 Delivery O2 Flow Rate FiO2 04/03/19 09:00 Room Air 04/03/19 04:00 98.4 66 20 140/87 (104) 04/03/19 00:00 98.4 74 20 136/62 (86) 04/02/19 21:02 Room Air 04/02/19 20:00 97.9 87 20 143/62 (89) 04/02/19 16:00 97.9 87 18 131/59 (83) 96 Intake and Output 04/02/19 04/03/19 19:00 07:00 Intake Total 710.0 ml Balance 710.0 ml IV Total 110.0 ml Other 600 ml Laboratory Tests Test 04/03/19 00:25 White Blood Count 8.6 K/UL (4.8-10.8) Red Blood Count 3.13 M/UL (4.20-5.40) L Hemoglobin 8.9 G/DL (12.0-16.0) L Hematocrit 27.4 % (37.0-47.0) L Mean Corpuscular Volume 88 FL (80-99) Mean Corpuscular Hemoglobin 28.3 PG (27.0-31.0) Mean Corpuscular Hemoglobin Concent 32.3 G/DL (32.0-36.0) Red Cell Distribution Width 13.6 % (11.6-14.8) Platelet Count 435 K/UL (150-450) Mean Platelet Volume 5.2 FL (6.5-10.1) L Neutrophils (%) (Auto) 63.0 % (45.0-75.0) Lymphocytes (%) (Auto) 20.3 % (20.0-45.0) Monocytes (%) (Auto) 13.2 % (1.0-10.0) H Eosinophils (%) (Auto) 2.6 % (0.0-3.0) Basophils (%) (Auto) 0.8 % (0.0-2.0) Erythrocyte Sedimentation Rate 58 MM/HR (0-30) H Prothrombin Time 10.0 SEC (9.30-11.50) Prothromb Time International Ratio 0.9 (0.9-1.1) Activated Partial Thromboplast Time 26 SEC (23-33) Sodium Level 138 MMOL/L (136-145) Potassium Level 4.3 MMOL/L (3.5-5.1) Chloride Level 102 MMOL/L (98-107) Carbon Dioxide Level 32 MMOL/L (21-32) Anion Gap 4 mmol/L (5-15) L Blood Urea Nitrogen 9 mg/dL (7-18) Creatinine 0.8 MG/DL (0.55-1.30) Estimat Glomerular Filtration Rate mL/min (>60) Glucose Level 124 MG/DL (74-106) H Calcium Level 9.0 MG/DL (8.5-10.1) Total Bilirubin 0.3 MG/DL (0.2-1.0) Aspartate Amino Transf (AST/SGOT) 23 U/L (15-37) Alanine Aminotransferase (ALT/SGPT) 88 U/L (12-78) H Alkaline Phosphatase 166 U/L (46-116) H C-Reactive Protein, Quantitative < 0.4 mg/dL (0.00-0.90) Total Protein 6.6 G/DL (6.4-8.2) Albumin 2.8 G/DL (3.4-5.0) L Globulin 3.8 g/dL Albumin/Globulin Ratio 0.7 (1.0-2.7) L Lipase 290 U/L (73-393) Height (Feet): 4 Height (Inches): 5.00 Weight (Pounds): 92 General Appearance: WD/WN, no apparent distress, alert Cardiovascular: normal rate Respiratory/Chest: normal breath sounds, no respiratory distress Abdominal Exam: normal bowel sounds, non tender, soft Extremities: non-tender David Vieira NP Apr 03, 2019 12:02
--- NOTE | 2019-04-03 12:21 | Brief Operative Note ---
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 diagnostic laparoscopic 2. 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 distal gastrectomy and closure of duodenal stump - B1 4. retrocolic anterior gastrojejunostomy 5. partial omentectomy 6. abdominal drain placement Post-op Diagnosis: 1. acute cholecystitis 2. cholecytoduodenal fistula with impacted stone which has eroded into the first portion of the duodenum Surgeon: Chris Anesthesiologist: Maury Anesthesia: general Specimen: yes Complications: none Condition: stable Fluids: see records Estimated Blood Loss: volume - 350 Drains: SAMMY Implant(s) used?: No Alexandro Perez Apr 03, 2019 12:21
--- NOTE | 2019-04-03 12:24 | Immediate Post-Op Evaluation ---
Immediate Post-Op Evalulation Immediate Post-Op Evalulation Procedure: Diagnostic laparoscopy, open cholecystectomy Date of Evaluation: Apr 03, 2019 Time of Evaluation: 12:22 IV Fluids: 800 Blood Products: ALBUMIN 250, PRBC 1 unit Estimated Blood Loss: 350 Urinary Output: 150 Blood Pressure Systolic: 123 Blood Pressure Diastolic: 76 Pulse Rate: 76 Respiratory Rate: 20 O2 Sat by Pulse Oximetry: 98 Temperature (Fahrenheit): 97.8 Pain Score (1-10): 1 Nausea: No Vomiting: No Complications none Patient Status: reacts, patent, extubated, none Hydration Status: adequate Irvin Mendiola MD Apr 03, 2019 12:24
[2019-04-03] MEDS ORDERED: DiphenhydrAMINE 50mg/ml Inj IVP PRN ×2 (12:30→13:41)
[2019-04-03] MEDS ORDERED: Acetaminophen 650 MG SUPP RECTAL PRN ×2 (12:30→13:41)
--- NOTE | 2019-04-03 12:32 | Infectious Diseases Prog Note ---
Assessment/Plan Assessment/Plan A: 83 yo female with PMHx of DM, HTN and Asthma who presented to the ED on 03/27/19 with 4 days of abdominal pain. Probable cholecystitis (? fistula) Transaminitis improving MRI : 04/02 very large gallstones, as described. Relationship of the gallstones to the duodenal lumen is not optimally demonstrated EGD: 04/01 Gastritis, status post biopsy. Possible stone stuck in the duodenal bulb from the gallbladder fistula CT abd 03/27/19 - Severe distention of the gallbladder, wall thickening, secondary to a large intraluminal gallstones. Cholecystitis is suspected. Correlate clinically. 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 There does appear to be some radiotracer filling the extremely distorted gallbladder, but this could be from the bowel connection, rather than the cystic duct. Leukocytosis -mild ( post EGD), Sp No Fever DM HTN HLD Asthma Arthritis PLAN - Continue Zosyn # 8 /10 - f/u Surgery recs - Monitor CBC and temps . Subjective Allergies: Coded Allergies: No Known Allergies (Unverified , 04/03/17) Subjective afebrile Objective Vital Signs Last 24 Hour Vital Signs Date Time Temp Pulse Resp B/P (MAP) Pulse Ox O2 Delivery O2 Flow Rate FiO2 04/03/19 12:25 77 20 125/55 100 Simple Mask 6 04/03/19 12:24 76 20 98 04/03/19 12:20 78 20 134/56 100 Simple Mask 6 04/03/19 12:17 98.8 80 20 123/50 100 Simple Mask 6 04/03/19 09:00 Room Air 04/03/19 04:00 98.4 66 20 140/87 (104) 04/03/19 00:00 98.4 74 20 136/62 (86) 04/02/19 21:02 Room Air 04/02/19 20:00 97.9 87 20 143/62 (89) 04/02/19 16:00 97.9 87 18 131/59 (83) 96 Height (Feet): 4 Height (Inches): 5.00 Weight (Pounds): 92 HEENT: anicteric Respiratory/Chest: no respiratory distress Cardiovascular: regular rhythm Abdomen: no organomegaly Laboratory Tests Test 04/03/19 00:25 White Blood Count 8.6 K/UL (4.8-10.8) Red Blood Count 3.13 M/UL (4.20-5.40) L Hemoglobin 8.9 G/DL (12.0-16.0) L Hematocrit 27.4 % (37.0-47.0) L Mean Corpuscular Volume 88 FL (80-99) Mean Corpuscular Hemoglobin 28.3 PG (27.0-31.0) Mean Corpuscular Hemoglobin Concent 32.3 G/DL (32.0-36.0) Red Cell Distribution Width 13.6 % (11.6-14.8) Platelet Count 435 K/UL (150-450) Mean Platelet Volume 5.2 FL (6.5-10.1) L Neutrophils (%) (Auto) 63.0 % (45.0-75.0) Lymphocytes (%) (Auto) 20.3 % (20.0-45.0) Monocytes (%) (Auto) 13.2 % (1.0-10.0) H Eosinophils (%) (Auto) 2.6 % (0.0-3.0) Basophils (%) (Auto) 0.8 % (0.0-2.0) Erythrocyte Sedimentation Rate 58 MM/HR (0-30) H Prothrombin Time 10.0 SEC (9.30-11.50) Prothromb Time International Ratio 0.9 (0.9-1.1) Activated Partial Thromboplast Time 26 SEC (23-33) Sodium Level 138 MMOL/L (136-145) Potassium Level 4.3 MMOL/L (3.5-5.1) Chloride Level 102 MMOL/L (98-107) Carbon Dioxide Level 32 MMOL/L (21-32) Anion Gap 4 mmol/L (5-15) L Blood Urea Nitrogen 9 mg/dL (7-18) Creatinine 0.8 MG/DL (0.55-1.30) Estimat Glomerular Filtration Rate mL/min (>60) Glucose Level 124 MG/DL (74-106) H Calcium Level 9.0 MG/DL (8.5-10.1) Total Bilirubin 0.3 MG/DL (0.2-1.0) Aspartate Amino Transf (AST/SGOT) 23 U/L (15-37) Alanine Aminotransferase (ALT/SGPT) 88 U/L (12-78) H Alkaline Phosphatase 166 U/L (46-116) H C-Reactive Protein, Quantitative < 0.4 mg/dL (0.00-0.90) Total Protein 6.6 G/DL (6.4-8.2) Albumin 2.8 G/DL (3.4-5.0) L Globulin 3.8 g/dL Albumin/Globulin Ratio 0.7 (1.0-2.7) L Lipase 290 U/L (73-393) Current Medications Medications (Trade) Dose Ordered Sig/Lora Route PRN Reason Start Time Stop Time Status Last Admin Dose Admin Acetaminophen (Tylenol) 650 mg Q4H PRN RECTAL FEVER 04/03/19 12:30 05/03/19 12:29 UNV Barium Sulfate (Varibar Honey) 250 ml NOW PRN MC RAD 03/31/19 12:45 04/03/19 12:39 Barium Sulfate (Varibar [place]) 240 ml NOW PRN RAD 03/31/19 12:45 04/03/19 12:39 Barium Sulfate (Varibar Pudding) 230 ml NOW PRN MC RAD 03/31/19 12:45 04/03/19 12:39 Dextrose (Dextrose 50%) 25 ml Q30M PRN IV Hypoglycemia 03/27/19 13:30 04/26/19 13:29 Dextrose (Dextrose 50%) 50 ml Q30M PRN IV Hypoglycemia 03/27/19 13:30 04/26/19 13:29 Dextrose/ Electrolytes 1,000 ml @ 100 mls/hr Q10H IV 04/03/19 12:21 05/03/19 12:20 UNV Diphenhydramine HCl (Benadryl) 12.5 mg Q6H PRN IVP Itching/Pruritis 04/03/19 12:30 05/03/19 12:29 UNV Heparin Sodium (Porcine) (Heparin 5000 units/ml) 5,000 units EVERY 12 HOURS SUBQ 03/27/19 21:00 04/26/19 20:59 04/02/19 08:29 Hydromorphone HCl (Dilaudid) 0.5 mg Q15M PRN IVP Severe Pain (Pain Scale 7-10) 04/03/19 09:00 04/03/19 15:00 Lorazepam (Ativan 2mg/ml 1ml) 0.5 mg Q4H PRN IV For Anxiety 03/27/19 13:30 04/03/19 13:29 Metoclopramide HCl (Reglan) 10 mg Q6H PRN IVP Nausea & Vomiting 04/03/19 12:30 05/03/19 12:29 UNV Morphine Sulfate (Morphine Sulfate) 1 mg Q4H PRN IVP For Pain 03/27/19 13:30 04/03/19 13:29 04/02/19 01:03 Morphine Sulfate (Morphine Sulfate) 1 mg Q4H PRN IVP pain scale 1-3 04/03/19 12:30 04/10/19 12:29 UNV Morphine Sulfate (Morphine Sulfate) 2 mg Q4H PRN IVP pain scale 4-6 04/03/19 12:30 04/10/19 12:29 UNV Morphine Sulfate (Morphine Sulfate) 4 mg Q4H PRN IVP pain score 7-10 04/03/19 12:30 04/10/19 12:29 UNV Ondansetron HCl (Zofran) 4 mg Q1H PRN IVP Nausea & Vomiting 04/03/19 09:00 04/03/19 15:00 Ondansetron HCl (Zofran) 4 mg Q6H PRN IVP Nausea & Vomiting 03/27/19 13:30 04/26/19 13:29 Piperacillin Sod/ Tazobactam Sod 3.375 gm/Sodium Chloride 110 ml @ 27.5 mls/hr Q12H IVPB 03/28/19 12:00 04/05/19 23:59 04/03/19 01:01 Sodium Chloride 1,000 ml @ 100 mls/hr Q10H IV 04/02/19 22:00 05/02/19 21:59 04/02/19 22:28 Zolpidem Tartrate (Ambien) 5 mg HSPRN PRN ORAL Insomnia 03/27/19 13:30 04/03/19 13:29 Maksim Davis MD Apr 03, 2019 12:32
[2019-04-03] MEDS ORDERED: Morphine Sulfate 2mg/ml Inj(IV/IM USE ONLY) IVP PRN ×4 (12:34→13:42)
[2019-04-03] MEDS ORDERED: Metoclopramide 10mg/2ml Inj IVP PRN ×3 (12:34→13:42)
[2019-04-03] MEDS ORDERED: Morphine Sulfate 4mg/ml Inj (IV USE ONLY) IVP PRN ×2 (12:34→13:42)
--- NOTE | 2019-04-03 13:30 | NUR ---
NURSE NOTES: Received the patient from Sindy Lopez RN. Patient is awake, alert and orientedx4. On 2L O2 via NC. O2 sat 97%. No acute distress noted. SR noted on the kiln cleaner. Right nare NGT intact, connected to low intermittent suction, greenish drainage noted. patient kept NPO. ABD dressing intact, clean and dry. Right AC 20G intact, TKO. Valdez cath intact, draining yellow urine by gravity. Skin intact. Belongings checked. VSS, afebrile. Bed in lowest position, locked, side rails upx2. Call light within reach. Will continue to monitor. Addendum: 04/03/19 at 1704 by ANTONINA FUNES RN SAMMY serosanguineous drainage noted. SCDs on bilateral lower extremities.
[2019-04-03] MEDS: D5 1/2NS w/KCl 20mEq 1,000 ML IV SCH (15:00)
--- NOTE | 2019-04-03 15:50 | NUR ---
NURSE NOTES: Patient pulled out NGT. 75ml greenish drainage noted from NGT.
--- NOTE | 2019-04-03 16:07 | Internal Med Progress Note ---
Subjective Date of Service: Apr 03, 2019 Physician Name Isaías Atwood Attending Physician Logan Camargo MD Current Medications Medications (Trade) Dose Ordered Sig/Lora Route PRN Reason Start Time Stop Time Status Last Admin Dose Admin Acetaminophen (Tylenol) 650 mg Q4H PRN RECTAL FEVER 04/03/19 13:41 05/03/19 13:40 Dextrose (Dextrose 50%) 25 ml Q30M PRN IV Hypoglycemia 04/03/19 14:00 04/26/19 13:29 Dextrose (Dextrose 50%) 50 ml Q30M PRN IV Hypoglycemia 04/03/19 14:00 04/26/19 13:29 Dextrose/ Electrolytes 1,000 ml @ 100 mls/hr Q10H IV 04/03/19 15:00 05/03/19 14:59 04/03/19 15:00 Diphenhydramine HCl (Benadryl) 12.5 mg Q6H PRN IVP Itching/Pruritis 04/03/19 13:41 05/03/19 13:40 Heparin Sodium (Porcine) (Heparin 5000 units/ml) 5,000 units EVERY 12 HOURS SUBQ 04/03/19 21:00 04/26/19 20:59 Metoclopramide HCl (Reglan) 10 mg Q6H PRN IVP Nausea & Vomiting 04/03/19 13:42 05/03/19 13:41 Morphine Sulfate (Morphine Sulfate) 1 mg Q4H PRN IVP pain scale 1-3 04/03/19 13:42 04/10/19 13:41 Morphine Sulfate (Morphine Sulfate) 2 mg Q4H PRN IVP pain scale 4-6 04/03/19 13:42 04/10/19 13:41 Morphine Sulfate (Morphine Sulfate) 4 mg Q4H PRN IVP pain score 7-10 04/03/19 13:42 04/10/19 13:41 Ondansetron HCl (Zofran) 4 mg Q6H PRN IVP Nausea & Vomiting 04/03/19 13:42 05/03/19 13:41 Piperacillin Sod/ Tazobactam Sod 3.375 gm/Sodium Chloride 110 ml @ 27.5 mls/hr Q12H IVPB 04/04/19 00:00 04/05/19 23:59 Allergies: Coded Allergies: No Known Allergies (Unverified , 04/03/17) ROS Limited/Unobtainable: Yes Subjective 83 YO F admitted with right upper quadrant pain. Now acute cholecystitis and cholelithiasis. Cover for Int Marcelo-Dr Camargo. 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 Objective Last Vital Signs Date Time Temp Pulse Resp B/P (MAP) Pulse Ox O2 Delivery O2 Flow Rate FiO2 04/03/19 15:00 90 19 138/51 (80) 98 04/03/19 14:00 98.5 04/03/19 13:10 Nasal Cannula 3 Laboratory Tests Test 04/03/19 00:25 White Blood Count 8.6 K/UL (4.8-10.8) Red Blood Count 3.13 M/UL (4.20-5.40) L Hemoglobin 8.9 G/DL (12.0-16.0) L Hematocrit 27.4 % (37.0-47.0) L Mean Corpuscular Volume 88 FL (80-99) Mean Corpuscular Hemoglobin 28.3 PG (27.0-31.0) Mean Corpuscular Hemoglobin Concent 32.3 G/DL (32.0-36.0) Red Cell Distribution Width 13.6 % (11.6-14.8) Platelet Count 435 K/UL (150-450) Mean Platelet Volume 5.2 FL (6.5-10.1) L Neutrophils (%) (Auto) 63.0 % (45.0-75.0) Lymphocytes (%) (Auto) 20.3 % (20.0-45.0) Monocytes (%) (Auto) 13.2 % (1.0-10.0) H Eosinophils (%) (Auto) 2.6 % (0.0-3.0) Basophils (%) (Auto) 0.8 % (0.0-2.0) Erythrocyte Sedimentation Rate 58 MM/HR (0-30) H Prothrombin Time 10.0 SEC (9.30-11.50) Prothromb Time International Ratio 0.9 (0.9-1.1) Activated Partial Thromboplast Time 26 SEC (23-33) Sodium Level 138 MMOL/L (136-145) Potassium Level 4.3 MMOL/L (3.5-5.1) Chloride Level 102 MMOL/L (98-107) Carbon Dioxide Level 32 MMOL/L (21-32) Anion Gap 4 mmol/L (5-15) L Blood Urea Nitrogen 9 mg/dL (7-18) Creatinine 0.8 MG/DL (0.55-1.30) Estimat Glomerular Filtration Rate mL/min (>60) Glucose Level 124 MG/DL (74-106) H Calcium Level 9.0 MG/DL (8.5-10.1) Total Bilirubin 0.3 MG/DL (0.2-1.0) Aspartate Amino Transf (AST/SGOT) 23 U/L (15-37) Alanine Aminotransferase (ALT/SGPT) 88 U/L (12-78) H Alkaline Phosphatase 166 U/L (46-116) H C-Reactive Protein, Quantitative < 0.4 mg/dL (0.00-0.90) Total Protein 6.6 G/DL (6.4-8.2) Albumin 2.8 G/DL (3.4-5.0) L Globulin 3.8 g/dL Albumin/Globulin Ratio 0.7 (1.0-2.7) L Lipase 290 U/L (73-393) Intake and Output 04/02/19 04/03/19 19:00 07:00 Intake Total 710.0 ml Balance 710.0 ml IV Total 110.0 ml Other 600 ml Objective PHYSICAL EXAMINATION: GENERAL: The patient is a well-developed and well-nourished female, in no apparent distress. HEENT: Eyes, pupils are equal and responsive to light and accommodation. Extraocular movements are intact. NECK: Supple without lymphadenopathy. CHEST: Lungs are clear to auscultation bilaterally without wheezes or rales. CARDIOVASCULAR: Regular rhythm and rate. S1, S2 normal without murmurs, rubs, or gallops. ABDOMEN: Soft, nondistended with decreased bowel sounds. There is pain to palpation to right upper quadrant. No evidence of rebound or guarding noted. EXTREMITIES: Negative for clubbing, cyanosis, or edema. RECTAL/GENITAL: Not performed. NEUROLOGIC: Cranial nerves II through XII are grossly intact without focal deficits. Motor strength is 5/5 bilaterally. Deep tendon reflexes are 2+ plantar. Assessment/Plan Assessment/Plan ASSESSMENT: This is an 83-year-old female with: 1. Right upper quadrant pain. 2. Acute cholecystitis. 3. Cholelithiasis. 4. Elevated liver function tests. 5. Diverticulitis. 6. Diabetes type 2. 7. Hypertension. 8. Hypercholesterolemia. 9. Asthma. 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 Occult pos stool TREATMENT: 1. Right upper quadrant pain/diverticulitis. A Gastroenterology consultation has been obtained with Dr. Panda Friedman. 2. Acute cholecystitis/cholelithiasis. 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 S/P endoscopy 04/01/19= large stone in duodenem and tricia-duodenal fistula A General Surgery consultation has been obtained with Dr. Perez. The patient has been started empirically on intravenous ciprofloxacin and metronidazole. Surgery date is pending 3. Elevated liver function tests. Improving. As above, a Gastroenterology consultation has been obtained with Dr. Panda Friedman. Possible colonoscopy and endoscopy for occult blood source 4. Diabetes type 2. The patient has been placed on NovoLog sliding scale. 5. Hypertension. The patient is currently hypotensive. Hold amlodipine above. 6. Hypercholesterolemia. Continue simvastatin 20 mg p.o. daily. 7. Asthma. 8. 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 Isaías Atwood MD Apr 03, 2019 16:07
[2019-04-03] MEDS ORDERED: D5 1/2NS w/KCl 20mEq 1,000 ML IV SCH (17:00)
--- NOTE | 2019-04-03 17:18 | NUR ---
NURSE NOTES: Patient resting in bed comfortably. Patient denies any pain or SOB. ABD dressing intact, clean and dry. No acute distress noted. Patient kept clean and dry.
--- NOTE | 2019-04-03 18:10 | NUR ---
NURSE NOTES: patient seen by Dr. Perez. made aware that patient pulled out NGT. No new orders at this time.
--- NOTE | 2019-04-03 19:11 | NUR ---
HAND-OFF: Report given to DIMITRIOS Israel..
--- NOTE | 2019-04-03 19:15 | NUR ---
NURSE NOTES: Report received from DIMITRIOS Obrien. Patient is awake, alert and orientedx4. On 2L O2 via NC. saturating at 96%. No acute distress noted. SR noted on the media monitor. ABD dressing intact, clean and dry. Right AC 20G intact, running D5 1/2 NS with 20meq KCL running at 100cc/hr. Valdez cath intact, draining yellow urine well noted. Skin intact. Bed in lowest position, locked, side rails upx2. Call light within reach. Will continue to monitor.
--- NOTE | 2019-04-03 22:08 | NUR ---
NURSE NOTES: Observed pt sleeping in the bed, calm and comfortable. Denies any pain. Abd dressing intact and dry. SAMMY drainage - 30ml, red and purple noted. SR on radiation monitor. Will continue to monitor.
[2019-04-04] VITALS (23 sets, daily range): BP systolic 141–168; BP diastolic 48–73
--- NOTE | 2019-04-04 | NUR ---
NURSE NOTES: Observed pt sleeping in the bed. No acute distress noted at this time. IV site intact and running D5 1/2 NS w/ KCL 20meq at 100cc/hr. Pt appears calm and comfortable. Will continue to monitor.
[2019-04-04] MEDS: D5 1/2NS w/KCl 20mEq 1,000 ML IV SCH ×4 (00:40→23:15)
[2019-04-04] MEDS: Piperacillin/Tazobactam 3.375 GM in NS 110 ML IVPB SCH ×3 (00:41→23:55)
--- NOTE | 2019-04-04 02:00 | NUR ---
NURSE NOTES: Pt sleeping in the bed, calm and comfortable. SR on rope machine setter. IV site asymptomatic. No acute distress noted at this time. Reposition done. Oral care done. Will continue to monitor. Addendum: 04/04/19 at 0306 by Jhonatan Avendano RN SAMMY drainage noted 30 cc of red discharge.
--- NOTE | 2019-04-04 04:09 | NUR ---
NURSE NOTES: Pt sleeping in the bed. VS WNL. On 2L NC. SR on nurse aide. No acute distress noted at this time. Will continue to monitor.
[2019-04-04 05:23] LABS: HEMATOCRIT 34.6 % (37.0-47.0); HEMOGLOBIN 11.1 G/DL (12.0-16.0); MEAN CORPUSCULAR VOLUME 89 FL (80-99); PLATELET COUNT 437 K/UL (150-450); RED BLOOD COUNT 3.89 M/UL (4.20-5.40); RED CELL DISTRIBUTION WIDTH 14.3 % (11.6-14.8)
[2019-04-04 05:31] LABS: ALANINE AMINOTRANSFERASE 63 U/L (12-78); ALBUMIN 2.7 G/DL (3.4-5.0); ALBUMIN/GLOBULIN RATIO 0.7 (1.0-2.7); ALKALINE PHOSPHATASE 134 U/L (46-116); ANION GAP 7 mmol/L (5-15); ASPARTATE AMINO TRANSFERASE 37 U/L (15-37); BILIRUBIN,TOTAL 0.5 MG/DL (0.2-1.0); BLOOD UREA NITROGEN 7 mg/dL (7-18); CALCIUM 8.5 MG/DL (8.5-10.1); CARBON DIOXIDE 27 MMOL/L (21-32); CHLORIDE 101 MMOL/L (98-107); CREATININE 0.9 MG/DL (0.55-1.30); POTASSIUM 4.1 MMOL/L (3.5-5.1); SODIUM 135 MMOL/L (136-145)
[2019-04-04 05:51] LABS: WHITE BLOOD COUNT 32.2 K/UL (4.8-10.8)
[2019-04-04 05:53] LABS: AMYLASE 35 U/L (25-115)
--- NOTE | 2019-04-04 06:13 | NUR ---
NURSE NOTES: Left a message to , regarding WBC 32.2. Awaiting for call back.
--- NOTE | 2019-04-04 07:06 | 48 Hour Post Anesthesia Eval ---
Post Anesthesia Evaluation Procedure: Diagnostic laparoscopy, open cholecystectomy Date of Evaluation: Apr 04, 2019 Time of Evaluation: 06:42 Blood Pressure Systolic: 146 0: 57 Pulse Rate: 99 Respiratory Rate: 25 Temperature (Fahrenheit): 98.5 O2 Sat by Pulse Oximetry: 100 Airway: patent Nausea: No Vomiting: No Pain Intensity: 2 Hydration Status: adequate Cardiopulmonary Status: Stable Mental Status/LOC: patient returned to baseline Follow-up Care/Observations: 0 Post-Anesthesia Complications: 0 Follow-up care needed: N/A Jaguar Castillo MD Apr 04, 2019 07:05
--- NOTE | 2019-04-04 07:15 | NUR ---
HAND-OFF: Report given to DIMITRIOS Jarrett. No distress noted.
--- NOTE | 2019-04-04 07:16 | NUR ---
NURSE NOTES: Received report from DIMITRIOS Israel. Pt is sleeping in bed. Able to wake up easily and oriented x 4. Mainly [place]ian speaking. Sinus rhythm on manager cardiac cath. On RA. Pt is not complaining of abdominal pain at this time. SAMMY drain noted on right lower quadrant. ABD dressing dry and intact. IV to right AC F20 patent and asymptomatic. Valdez in place draining to gravity. Bed in lowest position. Side rails up x3. Call light within reach. Will resume plan of care.
[2019-04-04] MEDS: Heparin 5000 units/ml inj SUBQ SCH ×2 (09:00→20:46)
--- NOTE | 2019-04-04 09:16 | NUR ---
CASE MANAGEMENT:REVIEW 04/04/19 SI: POD #1 OPEN CHOLECYSTECTOMY W/EXCISION OF CHOLECYSTODUODENAL FISTULA PARTIAL OMENTECTOMY. DRAIN PLACEMENT 98.5 88 22 164/61 100% ON RA WBC+32.2 IS: IV ZOSYN Q12 NORVASC PO QD HEPARIN SQ Q12 IVF@100/HR : ICU STATUS
[2019-04-04] MEDS ORDERED: NS 275ml ONE (09:18)
[2019-04-04] MEDS ORDERED: Tubing IV Secondary IV ONE (09:18)
--- NOTE | 2019-04-04 09:42 | NUR ---
RD ASSESSMENT & RECOMMENDATIONS SEE CARE ACTIVITY FOR COMPLETE ASSESSMENT DAILY ESTIMATED NEEDS: Needs based on DM, surgery/ 41kg 25-35 kcals/kg 7418-6398 total kcals 1-2 g protein/kg 41-82 g total protein 25-30 mL/kg 0379-9875 total fluid mLs NUTRITION DIAGNOSIS: Altered GI function R/T suspected cholecystitis, abnormal GB with duodenal fistula as evidenced by pt admitted w/ c/o abdominal pain, s/p open brennen, currently strict NPO. CURRENT DIET:CCHO MED, BLU -> NPO for EGD PO DIET RECOMMENDATIONS: Advance diet per MD PARENTERAL NUTRITION RECOMMENDATIONS: TPN Comment: Consult Rd w/ prolonged NPO status for TPN ----- ADDITIONAL RECOMMENDATIONS: * Calibrated bedscale wt for accurate CBW * Strict NPO/ monitor when medically ready to initiate diet If on clears, rec Enusre Clear TID w/ meals DAVID BID for surgial wound healing * Monitor PO intake closely, need to liberalized diet -> RESTART TERENCE COUNT IF INDICATED
--- NOTE | 2019-04-04 09:46 | General Progress Note ---
Assessment/Plan Problem List: (1) duodeno-cholecytic fistula (2) Diabetes mellitus ICD Codes: E11.9 - Type 2 diabetes mellitus without complications SNOMED: 26786917 (3) Failure to thrive in adult ICD Codes: R62.7 - Adult failure to thrive SNOMED: 658253056 (4) Elevated liver enzymes ICD Codes: R74.8 - Abnormal levels of other serum enzymes SNOMED: 956897606 Status: unchanged Assessment/Plan: s/p surg npo ivf iv abx fu surg recs ICU care fu labs Subjective ROS Limited/Unobtainable: Yes Allergies: Coded Allergies: No Known Allergies (Unverified , 04/03/17) Objective Last 24 Hour Vital Signs Date Time Temp Pulse Resp B/P (MAP) Pulse Ox O2 Delivery O2 Flow Rate FiO2 04/04/19 07:05 99 25 100 04/04/19 07:00 94 25 141/53 (82) 100 04/04/19 06:00 99 25 146/51 (82) 100 04/04/19 05:00 88 22 151/55 (87) 100 04/04/19 04:00 98.5 95 22 164/61 (95) 100 04/04/19 04:00 88 04/04/19 04:00 Room Air 04/04/19 03:00 95 23 159/56 (90) 99 04/04/19 02:00 90 23 157/55 (89) 100 04/04/19 01:00 98.7 89 25 168/55 (92) 98 04/04/19 00:00 98.7 91 25 163/58 (93) 100 04/04/19 00:00 98 04/04/19 00:00 Room Air 04/03/19 23:00 95 23 163/49 (87) 98 04/03/19 22:00 89 23 159/48 (85) 98 04/03/19 21:00 88 22 164/50 (88) 99 04/03/19 20:29 96 Nasal Cannula 3.0 38 04/03/19 20:00 Room Air 04/03/19 20:00 98.4 86 22 147/48 (81) 95 04/03/19 20:00 84 04/03/19 19:00 87 22 165/56 (92) 96 04/03/19 18:00 80 21 156/55 (88) 93 9/26/19 17:00 98.3 79 17 145/49 (81) 93 04/03/19 16:00 Room Air 04/03/19 16:00 93 17 152/66 (94) 97 04/03/19 16:00 91 04/03/19 15:00 90 19 138/51 (80) 98 04/03/19 14:00 98.5 84 22 138/65 (89) 97 04/03/19 13:15 80 04/03/19 13:15 81 20 153/64 (93) 98 04/03/19 13:10 97.4 74 22 157/59 100 Nasal Cannula 3 04/03/19 13:00 77 22 147/59 100 Nasal Cannula 3 04/03/19 12:45 75 22 149/60 100 Simple Mask 6 04/03/19 12:35 74 20 141/58 100 Simple Mask 6 04/03/19 12:25 77 20 125/55 100 Simple Mask 6 04/03/19 12:24 76 20 98 04/03/19 12:20 78 20 134/56 100 Simple Mask 6 04/03/19 12:17 98.8 80 20 123/50 100 Simple Mask 6 Intake and Output 04/03/19 04/04/19 18:59 06:59 Intake Total 1450 ml 1310.0 ml Output Total 820 ml 490 ml Balance 630 ml 820.0 ml IV Total 1200 ml 1310.0 ml Blood Product 250 ml Output Urine Total 350 ml 410 ml Gastric Drainage Total 75 ml Drainage Total 45 ml 80 ml Estimated Blood Loss 350 ml Laboratory Tests 04/04/19 04:10: White Blood Count 32.2#*H, Red Blood Count 3.89L, Hemoglobin 11.1L, Hematocrit 34.6L, Mean Corpuscular Volume 89, Mean Corpuscular Hemoglobin 28.6, Mean Corpuscular Hemoglobin Concent 32.2, Red Cell Distribution Width 14.3, Platelet Count 437, Mean Platelet Volume 5.0L, Neutrophils (%) (Auto) , Lymphocytes (%) ( Auto) , Monocytes (%) (Auto) , Eosinophils (%) (Auto) , Basophils (%) (Auto) , Differential Total Cells Counted 100, Neutrophils % (Manual) 94H, Lymphocytes % (Manual) 3L, Monocytes % (Manual) 3, Eosinophils % (Manual) 0, Basophils % ( Manual) 0, Band Neutrophils 0, Platelet Estimate Adequate, Platelet Morphology Normal, Red Blood Cell Morphology Normal, Prothrombin Time 10.5, Prothromb Time International Ratio 1.0, Activated Partial Thromboplast Time 30, Sodium Level 135L, Potassium Level 4.1, Chloride Level 101, Carbon Dioxide Level 27, Anion Gap 7, Blood Urea Nitrogen 7, Creatinine 0.9, Estimat Glomerular Filtration Rate , Glucose Level 200H, Calcium Level 8.5, Total Bilirubin 0.5, Aspartate Amino Transf (AST/SGOT) 37, Alanine Aminotransferase (ALT/SGPT) 63, Alkaline Phosphatase 134H, Total Protein 6.5, Albumin 2.7L, Globulin 3.8, Albumin/ Globulin Ratio 0.7L, Amylase Level 35, Lipase 62L Height (Feet): 4 Height (Inches): 5.00 Weight (Pounds): 92 General Appearance: alert EENT: normal ENT inspection Neck: supple Cardiovascular: normal rate Respiratory/Chest: decreased breath sounds Abdomen: hyperactive bowel sounds - drainage, other - post surgical Extremities: non-tender Panda Friedman MD Apr 04, 2019 09:46
--- NOTE | 2019-04-04 10:00 | NUR ---
NURSE NOTES: PRN Morphine IV 1mg given for abdominal pain. Will reassess pain. Friend at bedside. Addendum: 04/04/19 at 1103 by HARRISON WOOD RN RN NURSE NOTES: PRN Morphine IV 1mg given for abdominal pain. Will reassess pain. Friend at bedside. Dr Eli here to assess the patient. Updated him with pt's current condition.
--- NOTE | 2019-04-04 10:05 | Pulmonolgy Critical Care Note ---
Critical Care - Asmt/Plan Problems: (1) S/P cholecystectomy (2) duodeno-cholecytic fistula (3) Diabetes mellitus (4) Failure to thrive in adult (5) Cholelithiases (6) Cholecystitis Respiratory: adjust FIO2 Cardiac: continue to monitor HR/BP Renal: F/U I&O, keep IV fluid, check electrolytes Infectious Disease: check cultures, continue antibiotics Gastrointestinal: hold feedings Endocrine: monitor blood sugar Hematologic: monitor H/H, transfuse if hgb<8.5 Neurologic: PRN Ativan, keep patient comfortable Affect: PRN ativan Prophylaxis: Heparin Discussed with: nurses, consultants, case management assistantspa manager - Objective Last 24 Hour Vital Signs Date Time Temp Pulse Resp B/P (MAP) Pulse Ox O2 Delivery O2 Flow Rate FiO2 04/04/19 07:05 99 25 100 04/04/19 07:00 94 25 141/53 (82) 100 04/04/19 06:00 99 25 146/51 (82) 100 04/04/19 05:00 88 22 151/55 (87) 100 04/04/19 04:00 98.5 95 22 164/61 (95) 100 04/04/19 04:00 88 04/04/19 04:00 Room Air 04/04/19 03:00 95 23 159/56 (90) 99 04/04/19 02:00 90 23 157/55 (89) 100 04/04/19 01:00 98.7 89 25 168/55 (92) 98 04/04/19 00:00 98.7 91 25 163/58 (93) 100 04/04/19 00:00 98 04/04/19 00:00 Room Air 04/03/19 23:00 95 23 163/49 (87) 98 04/03/19 22:00 89 23 159/48 (85) 98 04/03/19 21:00 88 22 164/50 (88) 99 04/03/19 20:29 96 Nasal Cannula 3.0 38 04/03/19 20:00 Room Air 04/03/19 20:00 98.4 86 22 147/48 (81) 95 04/03/19 20:00 84 04/03/19 19:00 87 22 165/56 (92) 96 04/03/19 18:00 80 21 156/55 (88) 93 04/03/19 17:00 98.3 79 17 145/49 (81) 93 04/03/19 16:00 Room Air 04/03/19 16:00 93 17 152/66 (94) 97 04/03/19 16:00 91 04/03/19 15:00 90 19 138/51 (80) 98 04/03/19 14:00 98.5 84 22 138/65 (89) 97 04/03/19 13:15 80 04/03/19 13:15 81 20 153/64 (93) 98 04/03/19 13:10 97.4 74 22 157/59 100 Nasal Cannula 3 04/03/19 13:00 77 22 147/59 100 Nasal Cannula 3 04/03/19 12:45 75 22 149/60 100 Simple Mask 6 04/03/19 12:35 74 20 141/58 100 Simple Mask 6 04/03/19 12:25 77 20 125/55 100 Simple Mask 6 04/03/19 12:24 76 20 98 04/03/19 12:20 78 20 134/56 100 Simple Mask 6 04/03/19 12:17 98.8 80 20 123/50 100 Simple Mask 6 Status: awake Condition: improving HEENT: atraumatic Neck: full ROM Heart: HR/BP stable Abdomen: soft, active bowel sounds Extremities: no C/C/E Accucheck: 174 Critical Care - Subjective ROS Limited/Unobtainable: Yes Interval Events: pt is transferred to ICU after cholecystectomy. Condition: critical EKG Rhythm: Sinus Rhythm FI02: 38 Sputum Amount: None I&O: Intake and Output 04/03/19 04/04/19 18:59 06:59 Intake Total 1450 ml 1310.0 ml Output Total 820 ml 490 ml Balance 630 ml 820.0 ml IV Total 1200 ml 1310.0 ml Blood Product 250 ml Output Urine Total 350 ml 410 ml Gastric Drainage Total 75 ml Drainage Total 45 ml 80 ml Estimated Blood Loss 350 ml Labs: Laboratory Tests Test 04/04/19 04:10 White Blood Count 32.2 K/UL (4.8-10.8) #*H Red Blood Count 3.89 M/UL (4.20-5.40) L Hemoglobin 11.1 G/DL (12.0-16.0) L Hematocrit 34.6 % (37.0-47.0) L Mean Corpuscular Volume 89 FL (80-99) Mean Corpuscular Hemoglobin 28.6 PG (27.0-31.0) Mean Corpuscular Hemoglobin Concent 32.2 G/DL (32.0-36.0) Red Cell Distribution Width 14.3 % (11.6-14.8) Platelet Count 437 K/UL (150-450) Mean Platelet Volume 5.0 FL (6.5-10.1) L Neutrophils (%) (Auto) % (45.0-75.0) Lymphocytes (%) (Auto) % (20.0-45.0) Monocytes (%) (Auto) % (1.0-10.0) Eosinophils (%) (Auto) % (0.0-3.0) Basophils (%) (Auto) % (0.0-2.0) Differential Total Cells Counted 100 Neutrophils % (Manual) 94 % (45-75) H Lymphocytes % (Manual) 3 % (20-45) L Monocytes % (Manual) 3 % (1-10) Eosinophils % (Manual) 0 % (0-3) Basophils % (Manual) 0 % (0-2) Band Neutrophils 0 % (0-8) Platelet Estimate Adequate Platelet Morphology Normal Red Blood Cell Morphology Normal Prothrombin Time 10.5 SEC (9.30-11.50) Prothromb Time International Ratio 1.0 (0.9-1.1) Activated Partial Thromboplast Time 30 SEC (23-33) Sodium Level 135 MMOL/L (136-145) L Potassium Level 4.1 MMOL/L (3.5-5.1) Chloride Level 101 MMOL/L (98-107) Carbon Dioxide Level 27 MMOL/L (21-32) Anion Gap 7 mmol/L (5-15) Blood Urea Nitrogen 7 mg/dL (7-18) Creatinine 0.9 MG/DL (0.55-1.30) Estimat Glomerular Filtration Rate mL/min (>60) Glucose Level 200 MG/DL (74-106) H Calcium Level 8.5 MG/DL (8.5-10.1) Total Bilirubin 0.5 MG/DL (0.2-1.0) Aspartate Amino Transf (AST/SGOT) 37 U/L (15-37) Alanine Aminotransferase (ALT/SGPT) 63 U/L (12-78) Alkaline Phosphatase 134 U/L (46-116) H Total Protein 6.5 G/DL (6.4-8.2) Albumin 2.7 G/DL (3.4-5.0) L Globulin 3.8 g/dL Albumin/Globulin Ratio 0.7 (1.0-2.7) L Amylase Level 35 U/L (25-115) Lipase 62 U/L (73-393) L Dony Eli MD Apr 04, 2019 10:05
--- NOTE | 2019-04-04 10:40 | NUR ---
NURSE NOTES: Dr Davis called back. Notified him of elevated WBC. No new orders.
--- NOTE | 2019-04-04 11:36 | NUR ---
DISCHARGE SWALLOW THERAPY SUMMARY: SEEN FOR DYSPHAGIA, SEE SWALLOW EVAL AND MOD BARIUM SWALLOW STUDY REPORT AND PLAN: GOALS MET FOR STAFF AWARE OF ASP/REFLUX PREC WILL DC FROM SKILLED [facility] AT THIS TIME PT IS IN ICU. PLEASE RECONSULT IF INDICATED.
--- NOTE | 2019-04-04 11:46 | NUR ---
P.T Note: Pt was transferred to ICU for further medical attention. Will put P.T on hold at this time until cleared by MD to mobilize pt.
[2019-04-04] MEDS: NovoLOG Insulin Flexpen SUBQ SCH ×3 (11:54→20:45)
--- NOTE | 2019-04-04 11:55 | NUR ---
NURSE NOTES: Half dose of Insulin given since pt is NPO.
--- NOTE | 2019-04-04 12:54 | Internal Med Progress Note ---
Subjective Physician Name Logan Camargo Attending Physician Logan Camargo MD Current Medications Medications (Trade) Dose Ordered Sig/Lora Route PRN Reason Start Time Stop Time Status Last Admin Dose Admin Acetaminophen (Tylenol) 650 mg Q4H PRN RECTAL FEVER 04/03/19 13:41 05/03/19 13:40 Amlodipine Besylate (Norvasc) 5 mg DAILY ORAL 04/04/19 09:00 05/04/19 08:59 Dextrose (Dextrose 50%) 25 ml Q30M PRN IV Hypoglycemia 04/04/19 07:30 05/04/19 07:29 Dextrose (Dextrose 50%) 50 ml Q30M PRN IV Hypoglycemia 04/04/19 07:30 05/04/19 07:29 Dextrose/ Electrolytes 1,000 ml @ 100 mls/hr Q10H IV 04/03/19 15:00 05/03/19 14:59 04/04/19 11:51 Diphenhydramine HCl (Benadryl) 12.5 mg Q6H PRN IVP Itching/Pruritis 04/03/19 13:41 05/03/19 13:40 Heparin Sodium (Porcine) (Heparin 5000 units/ml) 5,000 units EVERY 12 HOURS SUBQ 04/03/19 21:00 04/26/19 20:59 04/03/19 21:20 Insulin Aspart (NovoLOG) BEFORE MEALS AND HS SUBQ 04/04/19 11:30 05/04/19 11:29 04/04/19 11:54 Metoclopramide HCl (Reglan) 10 mg Q6H PRN IVP Nausea & Vomiting 04/03/19 13:42 05/03/19 13:41 Morphine Sulfate (Morphine Sulfate) 1 mg Q4H PRN IVP pain scale 1-3 04/03/19 13:42 04/10/19 13:41 04/04/19 09:59 Morphine Sulfate (Morphine Sulfate) 2 mg Q4H PRN IVP pain scale 4-6 04/03/19 13:42 04/10/19 13:41 Morphine Sulfate (Morphine Sulfate) 4 mg Q4H PRN IVP pain score 7-10 04/03/19 13:42 04/10/19 13:41 Ondansetron HCl (Zofran) 4 mg Q6H PRN IVP Nausea & Vomiting 04/03/19 13:42 05/03/19 13:41 Piperacillin Sod/ Tazobactam Sod 3.375 gm/Sodium Chloride 110 ml @ 27.5 mls/hr Q12H IVPB 04/04/19 00:00 04/05/19 23:59 04/04/19 11:55 Allergies: Coded Allergies: No Known Allergies (Unverified , 04/03/17) Subjective in ICU, Awake, alert, responsive, denies nausea or vomiting, complain abdominal pain. Objective Last Vital Signs Date Time Temp Pulse Resp B/P (MAP) Pulse Ox O2 Delivery O2 Flow Rate FiO2 04/04/19 11:00 87 24 145/48 (80) 99 04/04/19 08:00 98.7 04/04/19 08:00 Room Air 04/03/19 20:29 3.0 38 Laboratory Tests Test 04/04/19 04:10 White Blood Count 32.2 K/UL (4.8-10.8) #*H Red Blood Count 3.89 M/UL (4.20-5.40) L Hemoglobin 11.1 G/DL (12.0-16.0) L Hematocrit 34.6 % (37.0-47.0) L Mean Corpuscular Volume 89 FL (80-99) Mean Corpuscular Hemoglobin 28.6 PG (27.0-31.0) Mean Corpuscular Hemoglobin Concent 32.2 G/DL (32.0-36.0) Red Cell Distribution Width 14.3 % (11.6-14.8) Platelet Count 437 K/UL (150-450) Mean Platelet Volume 5.0 FL (6.5-10.1) L Neutrophils (%) (Auto) % (45.0-75.0) Lymphocytes (%) (Auto) % (20.0-45.0) Monocytes (%) (Auto) % (1.0-10.0) Eosinophils (%) (Auto) % (0.0-3.0) Basophils (%) (Auto) % (0.0-2.0) Differential Total Cells Counted 100 Neutrophils % (Manual) 94 % (45-75) H Lymphocytes % (Manual) 3 % (20-45) L Monocytes % (Manual) 3 % (1-10) Eosinophils % (Manual) 0 % (0-3) Basophils % (Manual) 0 % (0-2) Band Neutrophils 0 % (0-8) Platelet Estimate Adequate Platelet Morphology Normal Red Blood Cell Morphology Normal Prothrombin Time 10.5 SEC (9.30-11.50) Prothromb Time International Ratio 1.0 (0.9-1.1) Activated Partial Thromboplast Time 30 SEC (23-33) Sodium Level 135 MMOL/L (136-145) L Potassium Level 4.1 MMOL/L (3.5-5.1) Chloride Level 101 MMOL/L (98-107) Carbon Dioxide Level 27 MMOL/L (21-32) Anion Gap 7 mmol/L (5-15) Blood Urea Nitrogen 7 mg/dL (7-18) Creatinine 0.9 MG/DL (0.55-1.30) Estimat Glomerular Filtration Rate mL/min (>60) Glucose Level 200 MG/DL (74-106) H Calcium Level 8.5 MG/DL (8.5-10.1) Total Bilirubin 0.5 MG/DL (0.2-1.0) Aspartate Amino Transf (AST/SGOT) 37 U/L (15-37) Alanine Aminotransferase (ALT/SGPT) 63 U/L (12-78) Alkaline Phosphatase 134 U/L (46-116) H Total Protein 6.5 G/DL (6.4-8.2) Albumin 2.7 G/DL (3.4-5.0) L Globulin 3.8 g/dL Albumin/Globulin Ratio 0.7 (1.0-2.7) L Amylase Level 35 U/L (25-115) Lipase 62 U/L (73-393) L Intake and Output 04/03/19 04/04/19 18:59 06:59 Intake Total 1450 ml 1310.0 ml Output Total 820 ml 490 ml Balance 630 ml 820.0 ml IV Total 1200 ml 1310.0 ml Blood Product 250 ml Output Urine Total 350 ml 410 ml Gastric Drainage Total 75 ml Drainage Total 45 ml 80 ml Estimated Blood Loss 350 ml Objective General: No acute distress, awake and alert HEENT: NCAT, sclera anicteric, PERRL, EOMI. Neck: Supple, no significant jugular venous distention, Lungs: Good inspiratory effort, clear to auscultation bilaterally, no Wheeze or Rales. Heart: Regular rate and rhythm, normal S1/S2, no murmurs. Abdomen: soft, tender, nondistended. Normoactive bowel sounds, Surgical incising intact dressing / Rectal: Refused and deferred. Extremities: No Cyanosis , clubbing or edema. Neuro: A&O x 3, Able to move all extremities Skin: warm, no rashes or lesions Psych: Normal mood and affect Assessment/Plan Assessment/Plan ASSESSMENT: This is an 83-year-old female with: 1. Right upper quadrant pain. 2. 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 Cholelithiasis. 4. Elevated liver function tests. 5. Diverticulitis. 6. Diabetes type 2. 7. Hypertension. 8. Hypercholesterolemia. 9. Asthma. TREATMENT: 1. 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 A Gastroenterology consultation has been obtained with Dr. Panda Friedman. 2. Acute cholecystitis/cholelithiasis. A General Surgery consultation has been obtained with Dr. Perez. 3. Elevated liver function tests. Differential includes acute hepatitis secondary to cholelithiasis versus chronic hepatitis. A hepatitis panel is pending. As above, a Gastroenterology consultation has been obtained with Dr. Panda Friedman. 4. Diabetes type 2. The patient has been placed on NovoLog sliding scale. 5. Hypertension. 6. Hypercholesterolemia. Continue simvastatin 20 mg p.o. daily. 7. Asthma. 8. Anemia. Full code, DVT prophylaxis with SCD Abx: Logan Auguste MD Apr 04, 2019 12:54
--- NOTE | 2019-04-04 14:03 | NUR ---
NURSE NOTES: Dr Perez here to see the patient. Will continue Stric NPO as per his order. Sign placed on the head of the bed. SAMMY drain emptied. 30cc serosang liquid noted from SAMMY. Notified DR Perez of the output.
--- NOTE | 2019-04-04 14:55 | NUR ---
Social Work This SW met with patient who is currently in the ICU, remaining alert/oriented x4, speaking Nepali. Patient instructed this SW to contact son, Fredrick ([phone]) who is her primary decision maker (patient does not have an Advance Directive). This SW spoke with son who explains patient lives with son, daughter in law and three grandchildren (ages 23, 18, 16). Son explains patient was independent with all ADLs, ambulating with a cane prior. Patient lives in a single story home, no steps. Son anticipates patient to discharge to home with son and family, but will be alone during the day (while family are either at work or school). Pending progress here. Patient does not have a history of substance abuse or mental health concerns at this time. Family and patient are requesting full code, full treatment.
--- NOTE | 2019-04-04 15:41 | NUR ---
NURSE NOTES: Called and left a message to Dr Eli for IV BP med instead of PO Amlodipine since Pt is on strict NPO as per Dr Perez's order. Awaiting call back for new orders.
--- NOTE | 2019-04-04 15:55 | Surgery Progress Note ---
Surgery Progress Note Subjective Procedure Performed 1. diagnostic laparoscopic 2. 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 distal gastrectomy and closure of duodenal stump - B1 4. retrocolic anterior gastrojejunostomy 5. partial omentectomy 6. abdominal drain placement Additional Comments afebrile, HD Stable, labs noted. leukocytosis. left's okay pain incisional drain output serous Objective Last 24 Hour Vital Signs Date Time Temp Pulse Resp B/P (MAP) Pulse Ox O2 Delivery O2 Flow Rate FiO2 04/04/19 15:00 87 22 148/52 (84) 100 04/04/19 14:00 91 24 151/55 (87) 99 04/04/19 13:00 87 23 151/57 (88) 97 04/04/19 12:00 Room Air 04/04/19 12:00 98.2 97 20 150/59 (89) 100 04/04/19 11:37 93 04/04/19 11:00 87 24 145/48 (80) 99 04/04/19 10:00 95 20 143/59 (87) 100 04/04/19 09:00 88 25 151/60 (90) 98 04/04/19 08:00 98.7 84 24 147/73 (97) 99 04/04/19 08:00 Room Air 04/04/19 07:27 89 04/04/19 07:05 99 25 100 04/04/19 07:00 94 25 141/53 (82) 100 04/04/19 06:00 99 25 146/51 (82) 100 04/04/19 05:00 88 22 151/55 (87) 100 04/04/19 04:00 98.5 95 22 164/61 (95) 100 04/04/19 04:00 88 04/04/19 04:00 Room Air 04/04/19 03:00 95 23 159/56 (90) 99 04/04/19 02:00 90 23 157/55 (89) 100 04/04/19 01:00 98.7 89 25 168/55 (92) 98 04/04/19 00:00 98.7 91 25 163/58 (93) 100 04/04/19 00:00 98 04/04/19 00:00 Room Air 04/03/19 23:00 95 23 163/49 (87) 98 04/03/19 22:00 89 23 159/48 (85) 98 04/03/19 21:00 88 22 164/50 (88) 99 04/03/19 20:29 96 Nasal Cannula 3.0 38 04/03/19 20:00 Room Air 04/03/19 20:00 98.4 86 22 147/48 (81) 95 04/03/19 20:00 84 04/03/19 19:00 87 22 165/56 (92) 96 04/03/19 18:00 80 21 156/55 (88) 93 04/03/19 17:00 98.3 79 17 145/49 (81) 93 04/03/19 16:00 Room Air 04/03/19 16:00 93 17 152/66 (94) 97 04/03/19 16:00 91 I&O Intake and Output 04/03/19 04/04/19 19:00 07:00 Intake Total 1550 ml 1310.0 ml Output Total 850 ml 500 ml Balance 700 ml 810.0 ml IV Total 1300 ml 1310.0 ml Blood Product 250 ml Output Urine Total 380 ml 420 ml Gastric Drainage Total 75 ml Drainage Total 45 ml 80 ml Estimated Blood Loss 350 ml Dressing: dry Wound: clean Drains: other Cardiovascular: RSR Respiratory: clear Abdomen: soft, flat, tenderness, decreased bowel sounds Extremities: no edema, no tenderness, no cyanosis Laboratory Tests Test 04/04/19 04:10 White Blood Count 32.2 K/UL (4.8-10.8) #*H Red Blood Count 3.89 M/UL (4.20-5.40) L Hemoglobin 11.1 G/DL (12.0-16.0) L Hematocrit 34.6 % (37.0-47.0) L Mean Corpuscular Volume 89 FL (80-99) Mean Corpuscular Hemoglobin 28.6 PG (27.0-31.0) Mean Corpuscular Hemoglobin Concent 32.2 G/DL (32.0-36.0) Red Cell Distribution Width 14.3 % (11.6-14.8) Platelet Count 437 K/UL (150-450) Mean Platelet Volume 5.0 FL (6.5-10.1) L Neutrophils (%) (Auto) % (45.0-75.0) Lymphocytes (%) (Auto) % (20.0-45.0) Monocytes (%) (Auto) % (1.0-10.0) Eosinophils (%) (Auto) % (0.0-3.0) Basophils (%) (Auto) % (0.0-2.0) Differential Total Cells Counted 100 Neutrophils % (Manual) 94 % (45-75) H Lymphocytes % (Manual) 3 % (20-45) L Monocytes % (Manual) 3 % (1-10) Eosinophils % (Manual) 0 % (0-3) Basophils % (Manual) 0 % (0-2) Band Neutrophils 0 % (0-8) Platelet Estimate Adequate Platelet Morphology Normal Red Blood Cell Morphology Normal Prothrombin Time 10.5 SEC (9.30-11.50) Prothromb Time International Ratio 1.0 (0.9-1.1) Activated Partial Thromboplast Time 30 SEC (23-33) Sodium Level 135 MMOL/L (136-145) L Potassium Level 4.1 MMOL/L (3.5-5.1) Chloride Level 101 MMOL/L (98-107) Carbon Dioxide Level 27 MMOL/L (21-32) Anion Gap 7 mmol/L (5-15) Blood Urea Nitrogen 7 mg/dL (7-18) Creatinine 0.9 MG/DL (0.55-1.30) Estimat Glomerular Filtration Rate mL/min (>60) Glucose Level 200 MG/DL (74-106) H Calcium Level 8.5 MG/DL (8.5-10.1) Total Bilirubin 0.5 MG/DL (0.2-1.0) Aspartate Amino Transf (AST/SGOT) 37 U/L (15-37) Alanine Aminotransferase (ALT/SGPT) 63 U/L (12-78) Alkaline Phosphatase 134 U/L (46-116) H Total Protein 6.5 G/DL (6.4-8.2) Albumin 2.7 G/DL (3.4-5.0) L Globulin 3.8 g/dL Albumin/Globulin Ratio 0.7 (1.0-2.7) L Amylase Level 35 U/L (25-115) Lipase 62 U/L (73-393) L Assessment Post-op Diagnosis 1. acute cholecystitis 2. cholecytoduodenal fistula with impacted stone which has eroded into the first portion of the duodenum Plan Problems: (1) Cholecystitis Assessment & Plan: s/p ex lap, b2, brennen, recovering labs noted exam stable drains okay wound okay patient pulled ng tube post op. do not reinsert npo strict iv fluids iv abx trend labs ambulate and out of bed d/c florencio tomorrow Alexandro Perez Apr 04, 2019 15:55
--- NOTE | 2019-04-04 16:11 | Infectious Diseases Prog Note ---
Assessment/Plan Assessment/Plan A: 83 yo female with PMHx of DM, HTN and Asthma who presented to the ED on 03/27/19 with 4 days of abdominal pain. Leukocytosis ( post Op) Probable cholecystitis (? fistula) Transaminitis improving 04/03 Sp open cholecystectomy with excision of cholecystoduodenal fistula MRI : 04/02 very large gallstones, as described. Relationship of the gallstones to the duodenal lumen is not optimally demonstrated EGD: 04/01 Gastritis, status post biopsy. Possible stone stuck in the duodenal bulb from the gallbladder fistula CT abd 03/27/19 - Severe distention of the gallbladder, wall thickening, secondary to a large intraluminal gallstones. Cholecystitis is suspected. Correlate clinically. 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 There does appear to be some radiotracer filling the extremely distorted gallbladder, but this could be from the bowel connection, rather than the cystic duct. Leukocytosis -mild ( post EGD), Sp No Fever DM HTN HLD Asthma Arthritis PLAN - Continue Zosyn # 9 /-12 - f/u Surgery recs - Monitor CBC and temps . Subjective Allergies: Coded Allergies: No Known Allergies (Unverified , 04/03/17) Subjective in ICU WBC increased Objective Vital Signs Last 24 Hour Vital Signs Date Time Temp Pulse Resp B/P (MAP) Pulse Ox O2 Delivery O2 Flow Rate FiO2 04/04/19 15:00 87 22 148/52 (84) 100 04/04/19 14:00 91 24 151/55 (87) 99 04/04/19 13:00 87 23 151/57 (88) 97 04/04/19 12:00 Room Air 04/04/19 12:00 98.2 97 20 150/59 (89) 100 04/04/19 11:37 93 04/04/19 11:00 87 24 145/48 (80) 99 04/04/19 10:00 95 20 143/59 (87) 100 04/04/19 09:00 88 25 151/60 (90) 98 04/04/19 08:00 98.7 84 24 147/73 (97) 99 04/04/19 08:00 Room Air 04/04/19 07:27 89 04/04/19 07:05 99 25 100 04/04/19 07:00 94 25 141/53 (82) 100 04/04/19 06:00 99 25 146/51 (82) 100 04/04/19 05:00 88 22 151/55 (87) 100 04/04/19 04:00 98.5 95 22 164/61 (95) 100 04/04/19 04:00 88 04/04/19 04:00 Room Air 04/04/19 03:00 95 23 159/56 (90) 99 04/04/19 02:00 90 23 157/55 (89) 100 04/04/19 01:00 98.7 89 25 168/55 (92) 98 04/04/19 00:00 98.7 91 25 163/58 (93) 100 04/04/19 00:00 98 04/04/19 00:00 Room Air 04/03/19 23:00 95 23 163/49 (87) 98 04/03/19 22:00 89 23 159/48 (85) 98 04/03/19 21:00 88 22 164/50 (88) 99 04/03/19 20:29 96 Nasal Cannula 3.0 38 04/03/19 20:00 Room Air 04/03/19 20:00 98.4 86 22 147/48 (81) 95 04/03/19 20:00 84 04/03/19 19:00 87 22 165/56 (92) 96 04/03/19 18:00 80 21 156/55 (88) 93 04/03/19 17:00 98.3 79 17 145/49 (81) 93 Height (Feet): 4 Height (Inches): 5.00 Weight (Pounds): 92 Respiratory/Chest: lungs clear Cardiovascular: regularly irregular Abdomen: soft, non tender - SAMMY +, no mass Laboratory Tests Test 04/04/19 04:10 White Blood Count 32.2 K/UL (4.8-10.8) #*H Red Blood Count 3.89 M/UL (4.20-5.40) L Hemoglobin 11.1 G/DL (12.0-16.0) L Hematocrit 34.6 % (37.0-47.0) L Mean Corpuscular Volume 89 FL (80-99) Mean Corpuscular Hemoglobin 28.6 PG (27.0-31.0) Mean Corpuscular Hemoglobin Concent 32.2 G/DL (32.0-36.0) Red Cell Distribution Width 14.3 % (11.6-14.8) Platelet Count 437 K/UL (150-450) Mean Platelet Volume 5.0 FL (6.5-10.1) L Neutrophils (%) (Auto) % (45.0-75.0) Lymphocytes (%) (Auto) % (20.0-45.0) Monocytes (%) (Auto) % (1.0-10.0) Eosinophils (%) (Auto) % (0.0-3.0) Basophils (%) (Auto) % (0.0-2.0) Differential Total Cells Counted 100 Neutrophils % (Manual) 94 % (45-75) H Lymphocytes % (Manual) 3 % (20-45) L Monocytes % (Manual) 3 % (1-10) Eosinophils % (Manual) 0 % (0-3) Basophils % (Manual) 0 % (0-2) Band Neutrophils 0 % (0-8) Platelet Estimate Adequate Platelet Morphology Normal Red Blood Cell Morphology Normal Prothrombin Time 10.5 SEC (9.30-11.50) Prothromb Time International Ratio 1.0 (0.9-1.1) Activated Partial Thromboplast Time 30 SEC (23-33) Sodium Level 135 MMOL/L (136-145) L Potassium Level 4.1 MMOL/L (3.5-5.1) Chloride Level 101 MMOL/L (98-107) Carbon Dioxide Level 27 MMOL/L (21-32) Anion Gap 7 mmol/L (5-15) Blood Urea Nitrogen 7 mg/dL (7-18) Creatinine 0.9 MG/DL (0.55-1.30) Estimat Glomerular Filtration Rate mL/min (>60) Glucose Level 200 MG/DL (74-106) H Calcium Level 8.5 MG/DL (8.5-10.1) Total Bilirubin 0.5 MG/DL (0.2-1.0) Aspartate Amino Transf (AST/SGOT) 37 U/L (15-37) Alanine Aminotransferase (ALT/SGPT) 63 U/L (12-78) Alkaline Phosphatase 134 U/L (46-116) H Total Protein 6.5 G/DL (6.4-8.2) Albumin 2.7 G/DL (3.4-5.0) L Globulin 3.8 g/dL Albumin/Globulin Ratio 0.7 (1.0-2.7) L Amylase Level 35 U/L (25-115) Lipase 62 U/L (73-393) L Current Medications Medications (Trade) Dose Ordered Sig/Lora Route PRN Reason Start Time Stop Time Status Last Admin Dose Admin Acetaminophen (Tylenol) 650 mg Q4H PRN RECTAL FEVER 04/03/19 13:41 05/03/19 13:40 Amlodipine Besylate (Norvasc) 5 mg DAILY ORAL 04/04/19 09:00 05/04/19 08:59 Dextrose (Dextrose 50%) 25 ml Q30M PRN IV Hypoglycemia 04/04/19 07:30 05/04/19 07:29 Dextrose (Dextrose 50%) 50 ml Q30M PRN IV Hypoglycemia 04/04/19 07:30 05/04/19 07:29 Dextrose/ Electrolytes 1,000 ml @ 100 mls/hr Q10H IV 04/03/19 15:00 05/03/19 14:59 04/04/19 11:51 Diphenhydramine HCl (Benadryl) 12.5 mg Q6H PRN IVP Itching/Pruritis 04/03/19 13:41 05/03/19 13:40 Heparin Sodium (Porcine) (Heparin 5000 units/ml) 5,000 units EVERY 12 HOURS SUBQ 04/03/19 21:00 04/26/19 20:59 04/03/19 21:20 Insulin Aspart (NovoLOG) BEFORE MEALS AND HS SUBQ 04/04/19 11:30 05/04/19 11:29 04/04/19 11:54 Metoclopramide HCl (Reglan) 10 mg Q6H PRN IVP Nausea & Vomiting 04/03/19 13:42 05/03/19 13:41 Morphine Sulfate (Morphine Sulfate) 1 mg Q4H PRN IVP pain scale 1-3 04/03/19 13:42 04/10/19 13:41 04/04/19 09:59 Morphine Sulfate (Morphine Sulfate) 2 mg Q4H PRN IVP pain scale 4-6 04/03/19 13:42 04/10/19 13:41 Morphine Sulfate (Morphine Sulfate) 4 mg Q4H PRN IVP pain score 7-10 04/03/19 13:42 04/10/19 13:41 Ondansetron HCl (Zofran) 4 mg Q6H PRN IVP Nausea & Vomiting 04/03/19 13:42 05/03/19 13:41 Piperacillin Sod/ Tazobactam Sod 3.375 gm/Sodium Chloride 110 ml @ 27.5 mls/hr Q12H IVPB 04/04/19 00:00 04/05/19 23:59 04/04/19 11:55 Maksim Davis MD Apr 04, 2019 16:11
--- NOTE | 2019-04-04 16:19 | NUR ---
NURSE NOTES: Pt is sleeping comfortably in bed. Dr Davis here to see the patient. Notified him of the elevated WBC again. No new orders at this time. No acute distress noted.
--- NOTE | 2019-04-04 19:15 | NUR ---
NURSE NOTES: Received patient from Lamar Vega RN. Will continue plan of care.
--- NOTE | 2019-04-04 19:30 | NUR ---
HAND-OFF: Report given to DIMITRIOS Orozco.
--- NOTE | 2019-04-04 20:00 | NUR ---
NURSE NOTES: Patient is stable, shows no signs of distress. Abdominal dressing clean, dry and intact. Alert and oriented x4. Able to states needs and all are met at the moment. Son was at bedside. No fever, current temp 98.8F. Bed on lowest position, alarm is activated. Will continue care.
--- NOTE | 2019-04-04 22:00 | NUR ---
NURSE NOTES: Patient is stable. Showing no signs ad symptoms of pain. On 0.5L nasal cannula and saturating at 99%. Belongings gather for transfer to SDU 237-2
--- NOTE | 2019-04-04 22:50 | NUR ---
NURSE NOTES: Transferred patient to SDU, placed in room 237-2. hall monitor is on, patient is stable, family at bedside. Belongings accounted for. Report given to DIMITRIOS Baldwin. Orders transferred.
--- NOTE | 2019-04-04 23:00 | NUR ---
NURSE NOTES: Received pt from DIMITRIOS Orozco. Pt is in bed awake, AAOx4, VSS, with no acute distress. Family member at bedside. Belongings list completed, Skin issues noted, pt on child development specialist, and IV sites at patent and intact. Bed at its lowest position, call light in reach, and X3 bed rails are up.
[2019-04-04] MEDS ORDERED: Morphine Sulfate 2mg/ml Inj(IV/IM USE ONLY) IVP PRN (23:28)
[2019-04-04] MEDS ORDERED: Metoclopramide 10mg/2ml Inj IVP PRN (23:28)
[2019-04-04] MEDS ORDERED: Morphine Sulfate 4mg/ml Inj (IV USE ONLY) IVP PRN (23:29)
[2019-04-04] MEDS ORDERED: Acetaminophen 650 MG SUPP RECTAL PRN (23:30)
[2019-04-04] MEDS ORDERED: DiphenhydrAMINE 50mg/ml Inj IVP PRN (23:30)
[2019-04-05] VITALS: BP 142/51
--- NOTE | 2019-04-05 | NUR ---
NURSE NOTES: Pt resting well with no signs of distress. Pt on nurse monitoring, RM, and IV is patent. Will continue to monitor.
--- NOTE | 2019-04-05 02:30 | Operative Note - Dictated ---
DATE OF OPERATION: 04/03/2019 PREOPERATIVE DIAGNOSES: 1. Acute cholecystitis. 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 POSTOPERATIVE DIAGNOSES: 1. Acute cholecystitis. 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 OPERATION PERFORMED: 1. Diagnostic laparoscopy. 2. Open cholecystectomy with excision of cholecystoduodenal fistula. 3. Distal gastrectomy and closure of duodenal stump with pursuing D2 procedure for retrocolic anterior gastrojejunostomy. 4. Partial omentectomy. 5. Abdominal drain placement. 6. Modifier 22 difficult procedure. ATTENDING SURGEON: Alexandro Perez M.D. TRAFFIC CONTROL SUPERVISOR: None. ANESTHESIOLOGIST: Irvin Mendiola M.D. ANESTHESIA: General GETA. ESTIMATED BLOOD LOSS: 350 mL. IV FLUIDS: Please see anesthesia records. COMPLICATIONS: None. DRAINS: SAMMY in the right upper quadrant. COUNTS: Sponge and needle count correct x2. WOUND CLASSIFICATION: Class III. SPECIMENS: 1. Gallstones. 2. Stomach and first portion of duodenum with impacted stone. INDICATIONS FOR PROCEDURE: This 83-year-old female presented to [facility] with abdominal pain and was identified to have a very abnormal CT with a dilated distended thickened gallbladder with large stones. 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 An EGD was performed and identified a large stone impacting on the first portion of duodenum running through it, and on MRI with impingement onto the duodenum with near obstruction. The patient was having melena and again developed leukocytosis. Given these findings, surgery was indicated and recommended. I had a long discussion with the patient's son and family members multiple times in regard to the patient's condition, above findings with severity of the findings, the plan, possible potential surgical interventions, the severity of the surgery, patient's age, medical comorbidities, overall status, condition and the significant morbidity and potentially mortality associated with such a large surgery. After explaining this to the patient's family member, they expressed to me that given these findings and the possibilities with understanding the risks, benefits, and alternatives of surgery, they have decided to proceed with surgical intervention as the patient does not feel comfortable with these known findings and has been having issues and feels that she is not getting any younger but plans for a long life. OPERATIVE NOTE: The patient was taken to the operating room and placed on the operating table in supine position with bilateral arms out. All bony prominences were well padded. SCDs placed. Preoperative time-out was taken identifying the patient, procedure, operative staff, and surgical staff. General anesthesia was induced and the patient was intubated. Valdez catheter was inserted using standard sterile technique. Abdomen was clipped, prepped, and draped in standard surgical fashion. An infraumbilical incision was made and using first #11 scalpel, carried down to the fascia, which was elevated and incised and entry into the abdomen obtained using open Keturah technique. The abdomen was insufflated to 12 to 15 mmHg. The patient tolerated the insufflation well. Laparoscope was inserted and the abdomen was inspected. No injury from initial trocar placement noted. Laparoscope was inserted and the abdomen was inspected, and it was noted that the gallbladder was very distended and with a lot of omental adhesions and very large impacted stone and it would be near impossible to proceed laparoscopically. At this time, laparoscope was removed and the abdomen was desufflated. The right upper quadrant subcostal incision was made from the epigastric laterally and carried down through the subcutaneous tissue with electrocautery until the anterior rectus sheath was identified. Rectus sheath was divided and the rectus muscles was eyed followed by the opening of the posterior sheath. Entry into the abdomen was obtained. A Bookwalter retractor was placed and the abdomen was inspected. The omentum overlying the gallbladder was gently dissected down and mobilized medially. At this time, it was clearly identified that there were no distinct borders between the gallbladder and the first portion of the duodenum and stomach. There was a large impacted stone that could be easily palpable and it was not mobile. At this time, the dissection was carried around the gallbladder laterally and the gallbladder was entered. Serous bile was evacuated. A large stone was identified. The large stone was milked laterally and removed. At this time, it was clearly identified the large stone had over 3 cm defect in the lateral wall of the first portion of the duodenum just distal to the pylorus around the bulb. The gallbladder had fused within, there was no clear distinction or resection plane for anastomosis. At this time, given these findings, given the large size of the duodenal-cholecystic fistula, there is no potential for repairing with the gallbladder and duodenum could not be identified for repair and given the size it would be a very concerning repair. At this time, decision was made to perform a resection of the distal portion of the stomach, pylorus, affected portions of the duodenal bulb around the pylorus as well as first portion of duodenum. An area on the distal stomach was identified and the omentum was taken down and the lesser sac was entered. Laparoscopic linear stapler was used and the stomach was divided distally a few centimeters away from the pylorus. Pylorus just distal to it was the area of the large defect. The defect in area of the duodenum was identified just distal to the defect and the duodenum was transected sharply with a fresh #10 scalpel to this level. Hemostasis was obtained with electrocautery. Following this, it was clearly evident that there was fair amount of bile refluxing into the remainder of the duodenum, and on inspection we could see potential ampulla where bile was filling through. No further attempt was made to enter the ampulla or dissect any further distally. The gallbladder was transected, mid gallbladder and the specimen was sent to pathology with the stone for review. At this time, the duodenal stump was then closed in a two-layer fashion beginning with a running 2-0 Vicryl followed by 3-0 silk pop-offs. The duodenal stump looked viable and on further inspection it seemed to look viable without complication. At this time, the remainder portions of the gallbladder that could be excised were excised. Of note, the back wall of the gallbladder was left in place and no further dissection was carried down into the area of the infundibulum. There was extensive scarring in the area of the infundibulum and no attempt was made to identify the cystic duct as it was believed that it was likely a very short cystic duct if one even was present given the MRI and HIDA findings. The electrocautery was used for the remaining back wall of the gallbladder on the liver edge as well as the infundibulum. The infundibulum was reapproximated for closure using 3-0 silk sutures. At this time, the abdomen was irrigated and suctioned clean. There was no leakage of bile or bleeding noted. The cholecystectomy was performed to satisfaction, was done so without further attempts to remove any of the posterior gallbladder wall or dissection of the infundibulum would cause potential injury. The duodenal stump was well sealed and stable. The remaining portions of epigastrium were otherwise stable. At this time, a window was made in the mesentery of the transverse colon. Ligament of Treitz was identified and a portion of jejunum was brought through to fashion a retrocolic anterior gastrojejunostomy. Area of anastomosis was identified on the body of the stomach as well as the jejunum. Silk stay sutures were placed. Gastrotomy and enterotomy were made, and a linear stapler was inserted and fired. Staple line was hemostatic and otherwise intact. The remaining defect was closed in a two-layer fashion beginning with a 2-0 Vicryl running suture followed by 3-0 silk interrupted Lembert sutures. Anastomosis was checked to be patent and otherwise stable. At this time, the abdomen was irrigated and suctioned again. A piece of the loop of omentum was placed in the gallbladder fossa and overlying the duodenal stump. A drain was placed in the right upper quadrant and hemostasis was noted. No biliary leak or other complication abnormalities noted. Overall very difficult procedure, but performed satisfactorily without intraoperative complication. NG tube was palpated in the stomach and positioned appropriately. At this time, began the closure of our procedure. The right upper quadrant subcostal incision fascia was reapproximated using a #0 PDS running suture. Following this, the wound was cleansed and skin incision reapproximated using surgical hair. The infraumbilical prior laparoscopic trocar site incision fascia was reapproximated using #0 [id number] Vicryl suture. The skin incision was reapproximated with surgical hair. Wounds were cleansed. Dressings were applied. Drain was placed to bulb suction. The patient was taken to the ICU in stable condition. Alexandro Perez M.D. DR: DANISH JOB#: [id number] CC: MIKE
--- NOTE | 2019-04-05 03:50 | NUR ---
NURSE NOTES: Pt temperature is 100.9, Medication given as prescribed. Will continue to monitor.
[2019-04-05 04:00] VITALS: BP 147/63
--- NOTE | 2019-04-05 04:30 | NUR ---
NURSE NOTES: Pt temperature reduced to 98.7 after Tylenol was given as prescribed.
[2019-04-05] MEDS: NovoLOG Insulin Flexpen SUBQ SCH ×4 (06:18→21:00)
[2019-04-05 06:35] LABS: HEMATOCRIT 31.5 % (37.0-47.0); MEAN CORPUSCULAR VOLUME 89 FL (80-99); PLATELET COUNT 382 K/UL (150-450); RED BLOOD COUNT 3.53 M/UL (4.20-5.40); RED CELL DISTRIBUTION WIDTH 14.1 % (11.6-14.8)
[2019-04-05 06:48] LABS: WHITE BLOOD COUNT 30.4 K/UL (4.8-10.8)
[2019-04-05 07:23] LABS: ALANINE AMINOTRANSFERASE 41 U/L (12-78); ALBUMIN 2.2 G/DL (3.4-5.0); ALBUMIN/GLOBULIN RATIO 0.6 (1.0-2.7); ALKALINE PHOSPHATASE 120 U/L (46-116); ANION GAP 9 mmol/L (5-15); ASPARTATE AMINO TRANSFERASE 21 U/L (15-37); BILIRUBIN,TOTAL 0.5 MG/DL (0.2-1.0); BLOOD UREA NITROGEN 6 mg/dL (7-18); CALCIUM 9.1 MG/DL (8.5-10.1); CARBON DIOXIDE 25 MMOL/L (21-32); CHLORIDE 100 MMOL/L (98-107); CREATININE 0.7 MG/DL (0.55-1.30); POTASSIUM 3.9 MMOL/L (3.5-5.1); SODIUM 134 MMOL/L (136-145)
--- NOTE | 2019-04-05 07:29 | NUR ---
HAND-OFF: Report given to DIMITRIOS Calle.
--- NOTE | 2019-04-05 07:30 | NUR ---
NURSE NOTES: Received bedside report Denny PLUNKETT. Pt in bed, awake, a/o x 4. No sign of distress. On O2@ 2LPM via NC. Denies pain at present. SAMMY drain in placed patent/intact draining serosanguineous output. Abdominal binder in placed. F/C in placed patent/intact draining yellow colored urine. IV site at right AC #20g. in placed patent/intact running D5 1/2 NS with Kcl 20meq. @100cc/hr. Tolerating well. Bed in low position, locked. Call light within reach. Will cont. to monitor.
--- NOTE | 2019-04-05 07:30 | NUR ---
HAND-OFF: Report given to DIMITRIOS Grijalva.
--- NOTE | 2019-04-05 07:51 | Pulmonology Progress Note ---
Assessment/Plan Assessment/Plan ASSESSMENT Acute cholecystitis Duodeno-cholecystic fistula Status post open cholecystectomy and excision of cholecysto-duodenal fistula Cholelithiasis Diverticulitis Transaminitis Asthma Diabetes mellitus Hypertension Leukocytosis PLAN OF CARE transferred to [facility] n.p.o. IVF fup with surgeon recs empiric ax BCX negative all imaging noted DVT prophylaxis pain management a/emetic prn BP management with CCB monitor H&H , remained at baseline stool OB + cancer tumor markers: CA-19-9 - 49 , CEA - 6.1 hepatitis panel negative LFT trending down to normal case discussed and evaluated by supervising physician Subjective Allergies: Coded Allergies: No Known Allergies (Unverified , 04/03/17) Subjective transferred to [facility] significant leukocytosis , no fever currently, low grade fever early am pulled NG tube , that was inserted postop Objective Last 24 Hour Vital Signs Date Time Temp Pulse Resp B/P (MAP) Pulse Ox O2 Delivery O2 Flow Rate FiO2 04/05/19 04:30 98.6 04/05/19 04:00 100.9 100 18 147/63 (91) 98 04/05/19 04:00 95 04/05/19 04:00 Nasal Cannula 1.0 04/05/19 00:57 93 04/05/19 00:01 Nasal Cannula 1.0 04/05/19 00:00 97.7 101 20 142/51 (81) 98 04/04/19 22:00 100 24 157/61 (93) 99 04/04/19 21:00 98 25 154/53 (86) 99 04/04/19 20:00 Room Air 04/04/19 20:00 98.8 94 26 164/58 (93) 99 04/04/19 19:59 98 Nasal Cannula 2.0 28 04/04/19 19:57 101 04/04/19 19:00 104 17 161/61 (94) 99 04/04/19 18:00 96 25 156/58 (90) 100 04/04/19 17:00 99.6 97 22 156/52 (86) 99 04/04/19 16:00 Room Air 04/04/19 16:00 87 25 153/52 (85) 99 04/04/19 15:32 86 04/04/19 15:00 87 22 148/52 (84) 100 04/04/19 14:00 91 24 151/55 (87) 99 04/04/19 13:00 87 23 151/57 (88) 97 04/04/19 12:00 Room Air 04/04/19 12:00 98.2 97 20 150/59 (89) 100 04/04/19 11:37 93 04/04/19 11:00 87 24 145/48 (80) 99 04/04/19 10:00 95 20 143/59 (87) 100 04/04/19 09:00 88 25 151/60 (90) 98 04/04/19 08:00 98.7 84 24 147/73 (97) 99 04/04/19 08:00 Room Air Intake and Output 04/04/19 04/05/19 19:00 07:00 Intake Total 1126.0 ml 336.55441 ml Output Total 503 ml 1215 ml Balance 623.0 ml -878.59411 ml IV Total 1126.0 ml 336.99755 ml Output Urine Total 473 ml 1200 ml Drainage Total 30 ml 15 ml General Appearance: no acute distress HEENT: normocephalic, atraumatic, anicteric Respiratory/Chest: lungs clear, no accessory muscle use Cardiovascular: normal rate, no JVD Abdomen: soft, non tender, hypoactive bowel sounds, other - SAMMY draina with serous output, abd dresing intact Extremities: no edema Neurologic/Psychiatric: alert, responsive Musculoskeletal: atrophy - BLE Laboratory Tests 04/05/19 03:20: White Blood Count 30.4*H, Red Blood Count 3.53L, Hemoglobin 10.0L, Hematocrit 31.5L, Mean Corpuscular Volume 89, Mean Corpuscular Hemoglobin 28.4, Mean Corpuscular Hemoglobin Concent 31.9L, Red Cell Distribution Width 14.1, Platelet Count 382, Mean Platelet Volume 4.9L, Neutrophils (%) (Auto) , Lymphocytes (%) (Auto) , Monocytes (%) (Auto) , Eosinophils (%) (Auto) , Basophils (%) (Auto) , Neutrophils % (Manual) [Pending], Lymphocytes % (Manual) [Pending], Platelet Estimate [Pending], Platelet Morphology [Pending], Sodium Level 134L, Potassium Level 3.9, Chloride Level 100, Carbon Dioxide Level 25, Anion Gap 9, Blood Urea Nitrogen 6L, Creatinine 0.7, Estimat Glomerular Filtration Rate , Glucose Level 143H, Calcium Level 9.1, Total Bilirubin 0.5, Aspartate Amino Transf (AST/SGOT) 21, Alanine Aminotransferase (ALT/SGPT) 41, Alkaline Phosphatase 120H, Total Protein 5.8L, Albumin 2.2L, Globulin 3.6, Albumin/Globulin Ratio 0.6L Current Medications Medications (Trade) Dose Ordered Sig/Lora Route PRN Reason Start Time Stop Time Status Last Admin Dose Admin Acetaminophen (Tylenol) 650 mg Q4H PRN RECTAL FEVER 04/04/19 23:30 05/04/19 23:29 04/05/19 04:00 Amlodipine Besylate (Norvasc) 5 mg DAILY ORAL 04/05/19 09:00 05/04/19 08:59 Dextrose (Dextrose 50%) 25 ml Q30M PRN IV Hypoglycemia 04/04/19 23:30 05/04/19 07:29 Dextrose (Dextrose 50%) 50 ml Q30M PRN IV Hypoglycemia 04/04/19 23:30 05/04/19 07:29 Dextrose/ Electrolytes 1,000 ml @ 100 mls/hr Q10H IV 04/04/19 23:15 05/03/19 14:59 Diphenhydramine HCl (Benadryl) 12.5 mg Q6H PRN IVP Itching/Pruritis 04/04/19 23:30 05/04/19 23:29 Heparin Sodium (Porcine) (Heparin 5000 units/ml) 5,000 units EVERY 12 HOURS SUBQ 04/05/19 09:00 04/26/19 20:59 Insulin Aspart (NovoLOG) BEFORE MEALS AND HS SUBQ 04/05/19 06:30 05/04/19 11:29 Metoclopramide HCl (Reglan) 10 mg Q6H PRN IVP Nausea & Vomiting 04/04/19 23:28 05/04/19 23:27 Morphine Sulfate (Morphine Sulfate) 1 mg Q4H PRN IVP pain scale 1-3 04/04/19 23:28 04/11/19 23:27 Morphine Sulfate (Morphine Sulfate) 2 mg Q4H PRN IVP pain scale 4-6 04/04/19 23:28 04/11/19 23:27 Morphine Sulfate (Morphine Sulfate) 4 mg Q4H PRN IVP pain score 7-10 04/04/19 23:29 04/11/19 23:28 Ondansetron HCl (Zofran) 4 mg Q6H PRN IVP Nausea & Vomiting FIRST CHOICE 04/04/19 23:29 05/04/19 23:28 Piperacillin Sod/ Tazobactam Sod 3.375 gm/Sodium Chloride 110 ml @ 27.5 mls/hr Q12H IVPB 04/05/19 00:00 04/05/19 23:59 04/04/19 23:55 Karen العراقي FRUIT SPRAYER Apr 05, 2019 07:51
[2019-04-05 08:00] VITALS: BP 139/60
[2019-04-05] MEDS: Heparin 5000 units/ml inj SUBQ SCH ×2 (10:11→21:26)
[2019-04-05] MEDS: D5 1/2NS w/KCl 20mEq 1,000 ML IV SCH ×2 (10:31→20:03)
[2019-04-05 12:00] VITALS: BP 145/63
--- NOTE | 2019-04-05 12:24 | Surgery Progress Note ---
Surgery Progress Note Subjective Procedure Performed 1. diagnostic laparoscopic 2. 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 distal gastrectomy and closure of duodenal stump - B1 4. retrocolic anterior gastrojejunostomy 5. partial omentectomy 6. abdominal drain placement Additional Comments Downgraded from ICU. Leukocytosis trending down. Low-grade fevers. States she feels well. Still has some incisional pain but improved today. Drain output serous. Otherwise stable. No complaints Objective Last 24 Hour Vital Signs Date Time Temp Pulse Resp B/P (MAP) Pulse Ox O2 Delivery O2 Flow Rate FiO2 04/05/19 12:00 Nasal Cannula 1.0 04/05/19 09:00 79 139/60 04/05/19 08:00 97.9 79 20 139/60 (86) 98 04/05/19 08:00 Nasal Cannula 1.0 04/05/19 07:42 81 04/05/19 04:30 98.6 04/05/19 04:00 100.9 100 18 147/63 (91) 98 04/05/19 04:00 95 04/05/19 04:00 Nasal Cannula 1.0 04/05/19 00:57 93 04/05/19 00:01 Nasal Cannula 1.0 04/05/19 00:00 97.7 101 20 142/51 (81) 98 04/04/19 22:00 100 24 157/61 (93) 99 04/04/19 21:00 98 25 154/53 (86) 99 04/04/19 20:00 Room Air 04/04/19 20:00 98.8 94 26 164/58 (93) 99 04/04/19 19:59 98 Nasal Cannula 2.0 28 04/04/19 19:57 101 04/04/19 19:00 104 17 161/61 (94) 99 04/04/19 18:00 96 25 156/58 (90) 100 04/04/19 17:00 99.6 97 22 156/52 (86) 99 04/04/19 16:00 Room Air 04/04/19 16:00 87 25 153/52 (85) 99 04/04/19 15:32 86 04/04/19 15:00 87 22 148/52 (84) 100 04/04/19 14:00 91 24 151/55 (87) 99 04/04/19 13:00 87 23 151/57 (88) 97 I&O Intake and Output 04/04/19 04/05/19 18:59 06:59 Intake Total 1126.0 ml 436.06566 ml Output Total 533 ml 515 ml Balance 593.0 ml -78.49922 ml IV Total 1126.0 ml 436.18491 ml Output Urine Total 503 ml 510 ml Drainage Total 30 ml 5 ml Dressing: dry Wound: clean Drains: justin Cardiovascular: RSR Respiratory: clear Abdomen: soft, flat, tenderness, non-distended, decreased bowel sounds Extremities: no edema, no tenderness, no cyanosis Laboratory Tests Test 04/05/19 03:20 White Blood Count 30.4 K/UL (4.8-10.8) *H Red Blood Count 3.53 M/UL (4.20-5.40) L Hemoglobin 10.0 G/DL (12.0-16.0) L Hematocrit 31.5 % (37.0-47.0) L Mean Corpuscular Volume 89 FL (80-99) Mean Corpuscular Hemoglobin 28.4 PG (27.0-31.0) Mean Corpuscular Hemoglobin Concent 31.9 G/DL (32.0-36.0) L Red Cell Distribution Width 14.1 % (11.6-14.8) Platelet Count 382 K/UL (150-450) Mean Platelet Volume 4.9 FL (6.5-10.1) L Neutrophils (%) (Auto) % (45.0-75.0) Lymphocytes (%) (Auto) % (20.0-45.0) Monocytes (%) (Auto) % (1.0-10.0) Eosinophils (%) (Auto) % (0.0-3.0) Basophils (%) (Auto) % (0.0-2.0) Differential Total Cells Counted 100 Neutrophils % (Manual) 86 % (45-75) H Lymphocytes % (Manual) 3 % (20-45) L Monocytes % (Manual) 10 % (1-10) Eosinophils % (Manual) 0 % (0-3) Basophils % (Manual) 0 % (0-2) Band Neutrophils 1 % (0-8) Platelet Estimate Adequate Platelet Morphology Normal Hypochromasia 1+ Anisocytosis 1+ Sodium Level 134 MMOL/L (136-145) L Potassium Level 3.9 MMOL/L (3.5-5.1) Chloride Level 100 MMOL/L (98-107) Carbon Dioxide Level 25 MMOL/L (21-32) Anion Gap 9 mmol/L (5-15) Blood Urea Nitrogen 6 mg/dL (7-18) L Creatinine 0.7 MG/DL (0.55-1.30) Estimat Glomerular Filtration Rate mL/min (>60) Glucose Level 143 MG/DL (74-106) H Calcium Level 9.1 MG/DL (8.5-10.1) Total Bilirubin 0.5 MG/DL (0.2-1.0) Aspartate Amino Transf (AST/SGOT) 21 U/L (15-37) Alanine Aminotransferase (ALT/SGPT) 41 U/L (12-78) Alkaline Phosphatase 120 U/L (46-116) H Total Protein 5.8 G/DL (6.4-8.2) L Albumin 2.2 G/DL (3.4-5.0) L Globulin 3.6 g/dL Albumin/Globulin Ratio 0.6 (1.0-2.7) L Assessment Post-op Diagnosis 1. acute cholecystitis 2. cholecytoduodenal fistula with impacted stone which has eroded into the first portion of the duodenum Plan Problems: (1) Cholecystitis Assessment & Plan: s/p ex lap, b2, brennen, recovering labs noted exam stable drains okay wound okay patient pulled ng tube post op. do not reinsert npo strict iv fluids iv abx trend labs ambulate and out of bed d/c Alexandro Martinez Apr 05, 2019 12:24
--- NOTE | 2019-04-05 13:13 | General Progress Note ---
Assessment/Plan Problem List: (1) duodeno-cholecytic fistula (2) Diabetes mellitus ICD Codes: E11.9 - Type 2 diabetes mellitus without complications SNOMED: 36506183 (3) Failure to thrive in adult ICD Codes: R62.7 - Adult failure to thrive SNOMED: 636520926 (4) Elevated liver enzymes ICD Codes: R74.8 - Abnormal levels of other serum enzymes SNOMED: 776300255 Status: unchanged Assessment/Plan: s/p surg npo ivf iv abx fu surg recs fu labs Subjective ROS Limited/Unobtainable: Yes Allergies: Coded Allergies: No Known Allergies (Unverified , 04/03/17) Objective Last 24 Hour Vital Signs Date Time Temp Pulse Resp B/P (MAP) Pulse Ox O2 Delivery O2 Flow Rate FiO2 04/05/19 12:00 99.0 88 21 145/63 (90) 98 04/05/19 12:00 Nasal Cannula 1.0 04/05/19 11:46 87 04/05/19 09:00 79 139/60 04/05/19 08:00 97.9 79 20 139/60 (86) 98 04/05/19 08:00 Nasal Cannula 1.0 04/05/19 07:42 81 04/05/19 04:30 98.6 04/05/19 04:00 100.9 100 18 147/63 (91) 98 04/05/19 04:00 95 04/05/19 04:00 Nasal Cannula 1.0 04/05/19 00:57 93 04/05/19 00:01 Nasal Cannula 1.0 04/05/19 00:00 97.7 101 20 142/51 (81) 98 04/04/19 22:00 100 24 157/61 (93) 99 04/04/19 21:00 98 25 154/53 (86) 99 04/04/19 20:00 Room Air 04/04/19 20:00 98.8 94 26 164/58 (93) 99 04/04/19 19:59 98 Nasal Cannula 2.0 28 04/04/19 19:57 101 04/04/19 19:00 104 17 161/61 (94) 99 04/04/19 18:00 96 25 156/58 (90) 100 04/04/19 17:00 99.6 97 22 156/52 (86) 99 04/04/19 16:00 Room Air 04/04/19 16:00 87 25 153/52 (85) 99 04/04/19 15:32 86 04/04/19 15:00 87 22 148/52 (84) 100 04/04/19 14:00 91 24 151/55 (87) 99 Intake and Output 04/04/19 04/05/19 18:59 06:59 Intake Total 1126.0 ml 436.12792 ml Output Total 533 ml 515 ml Balance 593.0 ml -78.47349 ml IV Total 1126.0 ml 436.63516 ml Output Urine Total 503 ml 510 ml Drainage Total 30 ml 5 ml Laboratory Tests 04/05/19 03:20: White Blood Count 30.4*H, Red Blood Count 3.53L, Hemoglobin 10.0L, Hematocrit 31.5L, Mean Corpuscular Volume 89, Mean Corpuscular Hemoglobin 28.4, Mean Corpuscular Hemoglobin Concent 31.9L, Red Cell Distribution Width 14.1, Platelet Count 382, Mean Platelet Volume 4.9L, Neutrophils (%) (Auto) , Lymphocytes (%) (Auto) , Monocytes (%) (Auto) , Eosinophils (%) (Auto) , Basophils (%) (Auto) , Differential Total Cells Counted 100, Neutrophils % ( Manual) 86H, Lymphocytes % (Manual) 3L, Monocytes % (Manual) 10, Eosinophils % ( Manual) 0, Basophils % (Manual) 0, Band Neutrophils 1, Platelet Estimate Adequate, Platelet Morphology Normal, Hypochromasia 1+, Anisocytosis 1+, Sodium Level 134L, Potassium Level 3.9, Chloride Level 100, Carbon Dioxide Level 25, Anion Gap 9, Blood Urea Nitrogen 6L, Creatinine 0.7, Estimat Glomerular Filtration Rate , Glucose Level 143H, Calcium Level 9.1, Total Bilirubin 0.5, Aspartate Amino Transf (AST/SGOT) 21, Alanine Aminotransferase (ALT/SGPT) 41, Alkaline Phosphatase 120H, Total Protein 5.8L, Albumin 2.2L, Globulin 3.6, Albumin/Globulin Ratio 0.6L Height (Feet): 4 Height (Inches): 5.00 Weight (Pounds): 92 General Appearance: alert EENT: normal ENT inspection Neck: supple Cardiovascular: normal rate Respiratory/Chest: decreased breath sounds Abdomen: other - post surgical Extremities: non-tender Panda Friedman MD Apr 05, 2019 13:13
[2019-04-05] MEDS: Piperacillin/Tazobactam 3.375 GM in NS 110 ML IVPB SCH (13:14)
[2019-04-05] MEDS ORDERED: Albuterol/Ipratropium 3ml neb HHN PRN (14:45)
[2019-04-05 16:00] VITALS: BP 148/65
[2019-04-05] MEDS ORDERED: NS 275ml ONE (16:08)
--- NOTE | 2019-04-05 16:51 | Internal Med Progress Note ---
Subjective Date of Service: Apr 05, 2019 Physician Name Isaías Atwood Attending Physician Logan Camargo MD Current Medications Medications (Trade) Dose Ordered Sig/Lora Route PRN Reason Start Time Stop Time Status Last Admin Dose Admin Acetaminophen (Tylenol) 650 mg Q4H PRN RECTAL FEVER 04/04/19 23:30 05/04/19 23:29 04/05/19 04:00 Albuterol/ Ipratropium (Albuterol/ Ipratropium) 3 ml Q4H PRN HHN Shortness of Breath 04/05/19 14:45 04/10/19 14:44 Amlodipine Besylate (Norvasc) 5 mg DAILY ORAL 04/05/19 09:00 05/04/19 08:59 Dextrose (Dextrose 50%) 25 ml Q30M PRN IV Hypoglycemia 04/04/19 23:30 05/04/19 07:29 Dextrose (Dextrose 50%) 50 ml Q30M PRN IV Hypoglycemia 04/04/19 23:30 05/04/19 07:29 Dextrose/ Electrolytes 1,000 ml @ 100 mls/hr Q10H IV 04/04/19 23:15 05/03/19 14:59 04/05/19 10:31 Diphenhydramine HCl (Benadryl) 12.5 mg Q6H PRN IVP Itching/Pruritis 04/04/19 23:30 05/04/19 23:29 Heparin Sodium (Porcine) (Heparin 5000 units/ml) 5,000 units EVERY 12 HOURS SUBQ 04/05/19 09:00 04/26/19 20:59 04/05/19 10:11 Insulin Aspart (NovoLOG) BEFORE MEALS AND HS SUBQ 04/05/19 06:30 05/04/19 11:29 Metoclopramide HCl (Reglan) 10 mg Q6H PRN IVP Nausea & Vomiting 04/04/19 23:28 05/04/19 23:27 Morphine Sulfate (Morphine Sulfate) 1 mg Q4H PRN IVP pain scale 1-3 04/04/19 23:28 04/11/19 23:27 Morphine Sulfate (Morphine Sulfate) 2 mg Q4H PRN IVP pain scale 4-6 04/04/19 23:28 04/11/19 23:27 Morphine Sulfate (Morphine Sulfate) 4 mg Q4H PRN IVP pain score 7-10 04/04/19 23:29 04/11/19 23:28 Ondansetron HCl (Zofran) 4 mg Q6H PRN IVP Nausea & Vomiting FIRST CHOICE 04/04/19 23:29 05/04/19 23:28 Piperacillin Sod/ Tazobactam Sod 3.375 gm/Sodium Chloride 110 ml @ 27.5 mls/hr Q12H IVPB 04/05/19 00:00 04/05/19 23:59 04/05/19 13:14 Allergies: Coded Allergies: No Known Allergies (Unverified , 04/03/17) ROS Limited/Unobtainable: No Constitutional: Reports: no symptoms HEENT: Reports: no symptoms Cardiovascular: Reports: no symptoms Respiratory: Reports: no symptoms Gastrointestinal/Abdominal: Reports: abdominal pain Genitourinary: Reports: no symptoms Neurologic/Psychiatric: Reports: no symptoms Subjective 83 YO F admitted with right upper quadrant pain. Now acute cholecystitis and cholelithiasis. Cover for Int Med-Dr Camargo. 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 [facility] Objective Last Vital Signs Date Time Temp Pulse Resp B/P (MAP) Pulse Ox O2 Delivery O2 Flow Rate FiO2 04/05/19 16:00 Nasal Cannula 1.0 04/05/19 15:24 96 04/05/19 12:00 99.0 21 145/63 (90) 98 04/04/19 19:59 28 Laboratory Tests Test 04/05/19 03:20 White Blood Count 30.4 K/UL (4.8-10.8) *H Red Blood Count 3.53 M/UL (4.20-5.40) L Hemoglobin 10.0 G/DL (12.0-16.0) L Hematocrit 31.5 % (37.0-47.0) L Mean Corpuscular Volume 89 FL (80-99) Mean Corpuscular Hemoglobin 28.4 PG (27.0-31.0) Mean Corpuscular Hemoglobin Concent 31.9 G/DL (32.0-36.0) L Red Cell Distribution Width 14.1 % (11.6-14.8) Platelet Count 382 K/UL (150-450) Mean Platelet Volume 4.9 FL (6.5-10.1) L Neutrophils (%) (Auto) % (45.0-75.0) Lymphocytes (%) (Auto) % (20.0-45.0) Monocytes (%) (Auto) % (1.0-10.0) Eosinophils (%) (Auto) % (0.0-3.0) Basophils (%) (Auto) % (0.0-2.0) Differential Total Cells Counted 100 Neutrophils % (Manual) 86 % (45-75) H Lymphocytes % (Manual) 3 % (20-45) L Monocytes % (Manual) 10 % (1-10) Eosinophils % (Manual) 0 % (0-3) Basophils % (Manual) 0 % (0-2) Band Neutrophils 1 % (0-8) Platelet Estimate Adequate Platelet Morphology Normal Hypochromasia 1+ Anisocytosis 1+ Sodium Level 134 MMOL/L (136-145) L Potassium Level 3.9 MMOL/L (3.5-5.1) Chloride Level 100 MMOL/L (98-107) Carbon Dioxide Level 25 MMOL/L (21-32) Anion Gap 9 mmol/L (5-15) Blood Urea Nitrogen 6 mg/dL (7-18) L Creatinine 0.7 MG/DL (0.55-1.30) Estimat Glomerular Filtration Rate mL/min (>60) Glucose Level 143 MG/DL (74-106) H Calcium Level 9.1 MG/DL (8.5-10.1) Total Bilirubin 0.5 MG/DL (0.2-1.0) Aspartate Amino Transf (AST/SGOT) 21 U/L (15-37) Alanine Aminotransferase (ALT/SGPT) 41 U/L (12-78) Alkaline Phosphatase 120 U/L (46-116) H Total Protein 5.8 G/DL (6.4-8.2) L Albumin 2.2 G/DL (3.4-5.0) L Globulin 3.6 g/dL Albumin/Globulin Ratio 0.6 (1.0-2.7) L Intake and Output 04/04/19 04/05/19 19:00 07:00 Intake Total 1126.0 ml 336.20570 ml Output Total 503 ml 1215 ml Balance 623.0 ml -878.38263 ml IV Total 1126.0 ml 336.71650 ml Output Urine Total 473 ml 1200 ml Drainage Total 30 ml 15 ml Objective PHYSICAL EXAMINATION: GENERAL: The patient is a well-developed and well-nourished female, in no apparent distress. HEENT: Eyes, pupils are equal and responsive to light and accommodation. Extraocular movements are intact. NECK: Supple without lymphadenopathy. CHEST: Lungs are clear to auscultation bilaterally without wheezes or rales. CARDIOVASCULAR: Regular rhythm and rate. S1, S2 normal without murmurs, rubs, or gallops. ABDOMEN: Soft, nondistended with decreased bowel sounds. There is pain to palpation to right upper quadrant. No evidence of rebound or guarding noted. EXTREMITIES: Negative for clubbing, cyanosis, or edema. RECTAL/GENITAL: Not performed. NEUROLOGIC: Cranial nerves II through XII are grossly intact without focal deficits. Motor strength is 5/5 bilaterally. Deep tendon reflexes are 2+ plantar. Assessment/Plan Assessment/Plan ASSESSMENT: This is an 83-year-old female with: 1. Right upper quadrant pain. 2. Acute cholecystitis. 3. Cholelithiasis. 4. Elevated liver function tests. 5. Diverticulitis. 6. Diabetes type 2. 7. Hypertension. 8. Hypercholesterolemia. 9. Asthma. 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 Occult pos stool TREATMENT: 1. Right upper quadrant pain/diverticulitis. A Gastroenterology consultation has been obtained with Dr. Panda Friedman. 2. Acute cholecystitis/cholelithiasis. 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 S/P endoscopy 04/01/19= large stone in duodenem and tricia-duodenal fistula A General Surgery consultation has been obtained with Dr. Perez. The patient has been started empirically on intravenous ciprofloxacin and metronidazole. Surgery date is pending 3. Elevated liver function tests. Improving. As above, a Gastroenterology consultation has been obtained with Dr. Panda Friedman. Possible colonoscopy and endoscopy for occult blood source 4. Diabetes type 2. The patient has been placed on NovoLog sliding scale. 5. Hypertension. The patient is currently hypotensive. Hold amlodipine above. 6. Hypercholesterolemia. Continue simvastatin 20 mg p.o. daily. 7. Asthma. 8. 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 Isaías Berumen MD Apr 05, 2019 16:51
--- NOTE | 2019-04-05 19:38 | NUR ---
HAND-OFF: Report given to Juli RN. Pt. remain stable. Encouraged to use I.S.
--- NOTE | 2019-04-05 19:40 | NUR ---
NURSE NOTES: pt is awake and resting on the bed, side rails x2 up, bed lowest position, locked, and alarmed. pt is croatian speaker, AOx 4, Carmen drain is intact. ABD binder is on. call light within reach. no SOB noted at this moment. pt is will continue to monitor pt with plan of care.
[2019-04-05 20:00] VITALS: BP 158/69
[2019-04-06] VITALS: BP 155/67
[2019-04-06 04:00] VITALS: BP 158/58
[2019-04-06] MEDS: D5 1/2NS w/KCl 20mEq 1,000 ML IV SCH ×2 (05:25→14:56)
[2019-04-06] MEDS: NovoLOG Insulin Flexpen SUBQ SCH ×4 (06:30→21:00)
[2019-04-06 06:54] LABS: HEMATOCRIT 32.5 % (37.0-47.0); HEMOGLOBIN 10.6 G/DL (12.0-16.0); MEAN CORPUSCULAR VOLUME 89 FL (80-99); PLATELET COUNT 430 K/UL (150-450); RED BLOOD COUNT 3.65 M/UL (4.20-5.40); RED CELL DISTRIBUTION WIDTH 14.1 % (11.6-14.8)
[2019-04-06 06:58] LABS: ALANINE AMINOTRANSFERASE 36 U/L (12-78); ALBUMIN 2.2 G/DL (3.4-5.0); ALBUMIN/GLOBULIN RATIO 0.5 (1.0-2.7); ALKALINE PHOSPHATASE 121 U/L (46-116); ANION GAP 4 mmol/L (5-15); ASPARTATE AMINO TRANSFERASE 19 U/L (15-37); BILIRUBIN,TOTAL 0.4 MG/DL (0.2-1.0); BLOOD UREA NITROGEN 5 mg/dL (7-18); CALCIUM 9.2 MG/DL (8.5-10.1); CARBON DIOXIDE 28 MMOL/L (21-32); CHLORIDE 102 MMOL/L (98-107); CREATININE 0.7 MG/DL (0.55-1.30); POTASSIUM 4.3 MMOL/L (3.5-5.1); SODIUM 134 MMOL/L (136-145)
[2019-04-06 07:28] LABS: WHITE BLOOD COUNT 25.2 K/UL (4.8-10.8)
--- NOTE | 2019-04-06 07:38 | General Progress Note ---
Assessment/Plan Problem List: (1) duodeno-cholecytic fistula (2) Diabetes mellitus ICD Codes: E11.9 - Type 2 diabetes mellitus without complications SNOMED: 49289026 (3) Failure to thrive in adult ICD Codes: R62.7 - Adult failure to thrive SNOMED: 036583312 (4) Elevated liver enzymes ICD Codes: R74.8 - Abnormal levels of other serum enzymes SNOMED: 932831548 Status: unchanged Assessment/Plan: s/p surg npo ivf iv abx fu surg recs fu labs Subjective ROS Limited/Unobtainable: Yes Allergies: Coded Allergies: No Known Allergies (Unverified , 04/03/17) Objective Last 24 Hour Vital Signs Date Time Temp Pulse Resp B/P (MAP) Pulse Ox O2 Delivery O2 Flow Rate FiO2 04/06/19 04:00 Nasal Cannula 1.0 04/06/19 04:00 97.8 90 20 158/58 (91) 100 04/06/19 03:35 84 04/06/19 00:00 Nasal Cannula 1.0 04/06/19 00:00 97.7 105 22 155/67 (96) 96 04/06/19 00:00 98 04/05/19 20:00 Nasal Cannula 1.0 04/05/19 20:00 97.7 99 20 158/69 (98) 97 04/05/19 19:29 101 04/05/19 18:45 97 Nasal Cannula 2.0 28 04/05/19 16:00 99.7 98 21 148/65 (92) 97 04/05/19 16:00 Nasal Cannula 1.0 04/05/19 15:24 96 04/05/19 12:00 99.0 88 21 145/63 (90) 98 04/05/19 12:00 Nasal Cannula 1.0 04/05/19 11:46 87 04/05/19 09:00 79 139/60 04/05/19 08:00 97.9 79 20 139/60 (86) 98 04/05/19 08:00 Nasal Cannula 1.0 04/05/19 07:42 81 Intake and Output 04/05/19 04/06/19 19:00 07:00 Intake Total 600 ml 200 ml Output Total 880 ml Balance -280 ml 200 ml IV Total 600 ml 200 ml Output Urine Total 850 ml Drainage Total 30 ml Laboratory Tests 04/06/19 04:30: White Blood Count 25.2*H, Red Blood Count 3.65L, Hemoglobin 10.6L, Hematocrit 32.5L, Mean Corpuscular Volume 89, Mean Corpuscular Hemoglobin 28.9, Mean Corpuscular Hemoglobin Concent 32.5, Red Cell Distribution Width 14.1, Platelet Count 430, Mean Platelet Volume 4.4L, Neutrophils (%) (Auto) , Lymphocytes (%) ( Auto) , Monocytes (%) (Auto) , Eosinophils (%) (Auto) , Basophils (%) (Auto) , Neutrophils % (Manual) [Pending], Lymphocytes % (Manual) [Pending], Platelet Estimate [Pending], Platelet Morphology [Pending], Sodium Level 134L, Potassium Level 4.3, Chloride Level 102, Carbon Dioxide Level 28, Anion Gap 4L, Blood Urea Nitrogen 5L, Creatinine 0.7, Estimat Glomerular Filtration Rate , Glucose Level 163H, Calcium Level 9.2, Total Bilirubin 0.4, Aspartate Amino Transf (AST/ SGOT) 19, Alanine Aminotransferase (ALT/SGPT) 36, Alkaline Phosphatase 121H, Total Protein 6.4, Albumin 2.2L, Globulin 4.2, Albumin/Globulin Ratio 0.5L Height (Feet): 4 Height (Inches): 5.00 Weight (Pounds): 92 General Appearance: alert EENT: normal ENT inspection Neck: supple Cardiovascular: normal rate Respiratory/Chest: decreased breath sounds Abdomen: other - post surgical Extremities: non-tender Panda Friedman MD Apr 06, 2019 07:38
--- NOTE | 2019-04-06 07:57 | NUR ---
HAND-OFF: Report given to Elizabeth PLUNKETT. pt is awake and resting on the bed. SAMMY pastor works well with negative pressure. no other active bleeding noted.
[2019-04-06 08:00] VITALS: BP 152/73
--- NOTE | 2019-04-06 08:02 | NUR ---
NURSE NOTES: Pt received from Katherine Kimbrough RN in stable condition w/no cardiopulmonary distress noted. Pt is awake in bed, AAOx4 on 2L O2 via NC. F/C noted draining yellow urine. Pt has a large surgical gauze dressing covering the entire abdominal region, dressing is dry and intact. SAMMY drain in Right abdominal quadrant draining serosanguineous fluid. RAC 20g IV noted. SCDs on bilat lower extremities. Bed in lowest position, alarm on, side rails up x2, call light within reach. Dr Friedman here to see pt and is aware pt had no BM since 03/31 and is still NPO. No orders received. Will continue to monitor pt. Addendum: 04/06/19 at 0817 by Elizabeth Dunlap RN Lateentry: pt is SR on diabetes territory manager. No skin alterations noted.
[2019-04-06] MEDS: Heparin 5000 units/ml inj SUBQ SCH ×2 (08:37→21:15)
--- NOTE | 2019-04-06 09:54 | Pulmonology Progress Note ---
Assessment/Plan Assessment/Plan ASSESSMENT Acute cholecystitis Duodeno-cholecystic fistula Status post open cholecystectomy and excision of cholecysto-duodenal fistula Cholelithiasis Diverticulitis Transaminitis Asthma Diabetes mellitus Hypertension Leukocytosis PLAN OF CARE transferred to [facility] n.p.o. IVF fup with surgeon recs empiric ax BCX negative all imaging noted DVT prophylaxis pain management O2 HHN prn CXR encourage IS a/emetic prn BP management with CCB monitor H&H , remained at baseline stool OB + cancer tumor markers: CA-19-9 - 49 , CEA - 6.1 hepatitis panel negative LFT trending down to normal case discussed and evaluated by supervising physician Subjective Allergies: Coded Allergies: No Known Allergies (Unverified , 04/03/17) Subjective transferred to [facility] significant leukocytosis , slowly trending down, low grade fever pulled NG tube , that was inserted postop Objective Last 24 Hour Vital Signs Date Time Temp Pulse Resp B/P (MAP) Pulse Ox O2 Delivery O2 Flow Rate FiO2 04/06/19 08:35 96 152/73 04/06/19 08:00 99.8 96 24 152/73 (99) 98 04/06/19 08:00 89 04/06/19 04:00 Nasal Cannula 1.0 04/06/19 04:00 97.8 90 20 158/58 (91) 100 04/06/19 03:35 84 04/06/19 00:00 Nasal Cannula 1.0 04/06/19 00:00 97.7 105 22 155/67 (96) 96 04/06/19 00:00 98 04/05/19 20:00 Nasal Cannula 1.0 04/05/19 20:00 97.7 99 20 158/69 (98) 97 04/05/19 19:29 101 04/05/19 18:45 97 Nasal Cannula 2.0 28 04/05/19 16:00 99.7 98 21 148/65 (92) 97 04/05/19 16:00 Nasal Cannula 1.0 04/05/19 15:24 96 04/05/19 12:00 99.0 88 21 145/63 (90) 98 04/05/19 12:00 Nasal Cannula 1.0 04/05/19 11:46 87 Intake and Output 04/05/19 04/06/19 19:00 07:00 Intake Total 600 ml 300 ml Output Total 880 ml 1050 ml Balance -280 ml -750 ml IV Total 600 ml 300 ml Output Urine Total 850 ml 1000 ml Drainage Total 30 ml 50 ml Objective General Appearance: no acute distress HEENT: normocephalic, atraumatic, anicteric Respiratory/Chest: lungs clear, no accessory muscle use Cardiovascular: normal rate, no JVD Abdomen: soft, non tender, hypoactive bowel sounds, SAMMY drain with serous output, abd dress ing intact Extremities: no edema Neurologic/Psychiatric: alert, responsive Musculoskeletal: atrophy - BLE Laboratory Tests 04/06/19 04:30: White Blood Count 25.2*H, Red Blood Count 3.65L, Hemoglobin 10.6L, Hematocrit 32.5L, Mean Corpuscular Volume 89, Mean Corpuscular Hemoglobin 28.9, Mean Corpuscular Hemoglobin Concent 32.5, Red Cell Distribution Width 14.1, Platelet Count 430, Mean Platelet Volume 4.4L, Neutrophils (%) (Auto) , Lymphocytes (%) ( Auto) , Monocytes (%) (Auto) , Eosinophils (%) (Auto) , Basophils (%) (Auto) , Differential Total Cells Counted 100, Neutrophils % (Manual) 91H, Lymphocytes % (Manual) 4L, Monocytes % (Manual) 5, Eosinophils % (Manual) 0, Basophils % ( Manual) 0, Band Neutrophils 0, Platelet Estimate Adequate, Platelet Morphology Normal, Hypochromasia 1+, Anisocytosis 1+, Sodium Level 134L, Potassium Level 4.3, Chloride Level 102, Carbon Dioxide Level 28, Anion Gap 4L, Blood Urea Nitrogen 5L, Creatinine 0.7, Estimat Glomerular Filtration Rate , Glucose Level 163H, Calcium Level 9.2, Total Bilirubin 0.4, Aspartate Amino Transf (AST/SGOT) 19, Alanine Aminotransferase (ALT/SGPT) 36, Alkaline Phosphatase 121H, Total Protein 6.4, Albumin 2.2L, Globulin 4.2, Albumin/Globulin Ratio 0.5L Current Medications Medications (Trade) Dose Ordered Sig/Lora Route PRN Reason Start Time Stop Time Status Last Admin Dose Admin Acetaminophen (Tylenol) 650 mg Q4H PRN RECTAL FEVER 04/04/19 23:30 05/04/19 23:29 04/05/19 04:00 Albuterol/ Ipratropium (Albuterol/ Ipratropium) 3 ml Q4H PRN HHN Shortness of Breath 04/05/19 14:45 04/10/19 14:44 Amlodipine Besylate (Norvasc) 5 mg DAILY ORAL 04/05/19 09:00 05/04/19 08:59 Dextrose (Dextrose 50%) 25 ml Q30M PRN IV Hypoglycemia 04/04/19 23:30 05/04/19 07:29 Dextrose (Dextrose 50%) 50 ml Q30M PRN IV Hypoglycemia 04/04/19 23:30 05/04/19 07:29 Dextrose/ Electrolytes 1,000 ml @ 100 mls/hr Q10H IV 04/04/19 23:15 05/03/19 14:59 04/06/19 05:25 Diphenhydramine HCl (Benadryl) 12.5 mg Q6H PRN IVP Itching/Pruritis 04/04/19 23:30 05/04/19 23:29 Heparin Sodium (Porcine) (Heparin 5000 units/ml) 5,000 units EVERY 12 HOURS SUBQ 04/05/19 09:00 04/26/19 20:59 04/06/19 08:37 Insulin Aspart (NovoLOG) BEFORE MEALS AND HS SUBQ 04/05/19 06:30 05/04/19 11:29 Metoclopramide HCl (Reglan) 10 mg Q6H PRN IVP Nausea & Vomiting 04/04/19 23:28 05/04/19 23:27 Morphine Sulfate (Morphine Sulfate) 1 mg Q4H PRN IVP pain scale 1-3 04/04/19 23:28 04/11/19 23:27 Morphine Sulfate (Morphine Sulfate) 2 mg Q4H PRN IVP pain scale 4-6 04/04/19 23:28 04/11/19 23:27 Morphine Sulfate (Morphine Sulfate) 4 mg Q4H PRN IVP pain score 7-10 04/04/19 23:29 04/11/19 23:28 Ondansetron HCl (Zofran) 4 mg Q6H PRN IVP Nausea & Vomiting FIRST CHOICE 04/04/19 23:29 05/04/19 23:28 Karen العراقي NP Apr 06, 2019 09:54
--- NOTE | 2019-04-06 10:12 | NUR ---
NURSE NOTES: Late Entry: (correct time 0800) noted on chart no order for SCDs at this time d/t low VTE Risk score (Per Dr. Eli). SCDs removed.
[2019-04-06] MEDS: Piperacillin/Tazobactam 3.375 GM in NS 110 ML IVPB SCH ×2 (10:31→21:14)
[2019-04-06 12:00] VITALS: BP 160/70
--- NOTE | 2019-04-06 12:42 | NUR ---
NURSE NOTES: Left message for Dr. Camargo regarding pt's low grade fever (99.5 F ax) and BP (160/70). Requested order for PRN IV Antihypertensive d/t strict NPO status w/o PO meds. Awaiting call back.
--- NOTE | 2019-04-06 15:12 | NUR ---
NURSE NOTES: Dr. Perez cme in to see pt. Abdominal dressing and xeroform removed. Per Dr. Perez, leave incision open to air. Horizontal abd incision with hair noted. 2" long incision w/hair noted in LLQ. no redness or drainage noted on any of the incisions. SAMMY drain noted in Right abd quadrant. Order for SCDs obtained from Dr. Perez w/instruction to place pt back on SCDs for now. He is also aware that pt had no BM since 03/31 and states she will "not have a bowel movement for a while." SCDs placed back on bilat lower extremities.
--- NOTE | 2019-04-06 15:31 | Internal Med Progress Note ---
Subjective Date of Service: Apr 06, 2019 Physician Name Isaías Atwood Attending Physician Logan Camargo MD Current Medications Medications (Trade) Dose Ordered Sig/Lora Route PRN Reason Start Time Stop Time Status Last Admin Dose Admin Acetaminophen (Tylenol) 650 mg Q4H PRN RECTAL FEVER 04/04/19 23:30 05/04/19 23:29 04/05/19 04:00 Albuterol/ Ipratropium (Albuterol/ Ipratropium) 3 ml Q4H PRN HHN Shortness of Breath 04/05/19 14:45 04/10/19 14:44 Amlodipine Besylate (Norvasc) 5 mg DAILY ORAL 04/05/19 09:00 05/04/19 08:59 Dextrose (Dextrose 50%) 25 ml Q30M PRN IV Hypoglycemia 04/04/19 23:30 05/04/19 07:29 Dextrose (Dextrose 50%) 50 ml Q30M PRN IV Hypoglycemia 04/04/19 23:30 05/04/19 07:29 Dextrose/ Electrolytes 1,000 ml @ 100 mls/hr Q10H IV 04/04/19 23:15 05/03/19 14:59 04/06/19 14:56 Diphenhydramine HCl (Benadryl) 12.5 mg Q6H PRN IVP Itching/Pruritis 04/04/19 23:30 05/04/19 23:29 Heparin Sodium (Porcine) (Heparin 5000 units/ml) 5,000 units EVERY 12 HOURS SUBQ 04/05/19 09:00 04/26/19 20:59 04/06/19 08:37 Hydralazine HCl (Apresoline) 10 mg Q6H PRN IV SBP>160 mmHg 04/06/19 14:30 05/06/19 14:29 Insulin Aspart (NovoLOG) BEFORE MEALS AND HS SUBQ 04/05/19 06:30 05/04/19 11:29 Metoclopramide HCl (Reglan) 10 mg Q6H PRN IVP Nausea & Vomiting 04/04/19 23:28 05/04/19 23:27 Morphine Sulfate (Morphine Sulfate) 1 mg Q4H PRN IVP pain scale 1-3 04/04/19 23:28 04/11/19 23:27 Morphine Sulfate (Morphine Sulfate) 2 mg Q4H PRN IVP pain scale 4-6 04/04/19 23:28 04/11/19 23:27 Morphine Sulfate (Morphine Sulfate) 4 mg Q4H PRN IVP pain score 7-10 04/04/19 23:29 04/11/19 23:28 Ondansetron HCl (Zofran) 4 mg Q6H PRN IVP Nausea & Vomiting FIRST CHOICE 04/04/19 23:29 05/04/19 23:28 Piperacillin Sod/ Tazobactam Sod 3.375 gm/Sodium Chloride 110 ml @ 27.5 mls/hr EVERY 12 HOURS IVPB 04/06/19 10:00 04/11/19 09:59 04/06/19 10:31 Allergies: Coded Allergies: No Known Allergies (Unverified , 04/03/17) ROS Limited/Unobtainable: No Constitutional: Reports: no symptoms HEENT: Reports: no symptoms Cardiovascular: Reports: no symptoms Respiratory: Reports: no symptoms Gastrointestinal/Abdominal: Reports: no symptoms Genitourinary: Reports: no symptoms Neurologic/Psychiatric: Reports: no symptoms Subjective 83 YO F admitted with right upper quadrant pain. Now acute cholecystitis and cholelithiasis. Cover for Int Med-Dr Camargo. 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 [facility]. Worsening WBC Objective Last Vital Signs Date Time Temp Pulse Resp B/P (MAP) Pulse Ox O2 Delivery O2 Flow Rate FiO2 04/06/19 12:00 Nasal Cannula 2.0 04/06/19 12:00 89 04/06/19 12:00 99.5 22 160/70 (100) 99 04/06/19 07:30 28 Laboratory Tests Test 04/06/19 04:30 White Blood Count 25.2 K/UL (4.8-10.8) *H Red Blood Count 3.65 M/UL (4.20-5.40) L Hemoglobin 10.6 G/DL (12.0-16.0) L Hematocrit 32.5 % (37.0-47.0) L Mean Corpuscular Volume 89 FL (80-99) Mean Corpuscular Hemoglobin 28.9 PG (27.0-31.0) Mean Corpuscular Hemoglobin Concent 32.5 G/DL (32.0-36.0) Red Cell Distribution Width 14.1 % (11.6-14.8) Platelet Count 430 K/UL (150-450) Mean Platelet Volume 4.4 FL (6.5-10.1) L Neutrophils (%) (Auto) % (45.0-75.0) Lymphocytes (%) (Auto) % (20.0-45.0) Monocytes (%) (Auto) % (1.0-10.0) Eosinophils (%) (Auto) % (0.0-3.0) Basophils (%) (Auto) % (0.0-2.0) Differential Total Cells Counted 100 Neutrophils % (Manual) 91 % (45-75) H Lymphocytes % (Manual) 4 % (20-45) L Monocytes % (Manual) 5 % (1-10) Eosinophils % (Manual) 0 % (0-3) Basophils % (Manual) 0 % (0-2) Band Neutrophils 0 % (0-8) Platelet Estimate Adequate Platelet Morphology Normal Hypochromasia 1+ Anisocytosis 1+ Sodium Level 134 MMOL/L (136-145) L Potassium Level 4.3 MMOL/L (3.5-5.1) Chloride Level 102 MMOL/L (98-107) Carbon Dioxide Level 28 MMOL/L (21-32) Anion Gap 4 mmol/L (5-15) L Blood Urea Nitrogen 5 mg/dL (7-18) L Creatinine 0.7 MG/DL (0.55-1.30) Estimat Glomerular Filtration Rate mL/min (>60) Glucose Level 163 MG/DL (74-106) H Calcium Level 9.2 MG/DL (8.5-10.1) Total Bilirubin 0.4 MG/DL (0.2-1.0) Aspartate Amino Transf (AST/SGOT) 19 U/L (15-37) Alanine Aminotransferase (ALT/SGPT) 36 U/L (12-78) Alkaline Phosphatase 121 U/L (46-116) H Total Protein 6.4 G/DL (6.4-8.2) Albumin 2.2 G/DL (3.4-5.0) L Globulin 4.2 g/dL Albumin/Globulin Ratio 0.5 (1.0-2.7) L Intake and Output 04/05/19 04/06/19 19:00 07:00 Intake Total 600 ml 300 ml Output Total 880 ml 1050 ml Balance -280 ml -750 ml IV Total 600 ml 300 ml Output Urine Total 850 ml 1000 ml Drainage Total 30 ml 50 ml Objective PHYSICAL EXAMINATION: GENERAL: The patient is a well-developed and well-nourished female, in no apparent distress. HEENT: Eyes, pupils are equal and responsive to light and accommodation. Extraocular movements are intact. NECK: Supple without lymphadenopathy. CHEST: Lungs are clear to auscultation bilaterally without wheezes or rales. CARDIOVASCULAR: Regular rhythm and rate. S1, S2 normal without murmurs, rubs, or gallops. ABDOMEN: Soft, nondistended with decreased bowel sounds. There is pain to palpation to right upper quadrant. No evidence of rebound or guarding noted. EXTREMITIES: Negative for clubbing, cyanosis, or edema. RECTAL/GENITAL: Not performed. NEUROLOGIC: Cranial nerves II through XII are grossly intact without focal deficits. Motor strength is 5/5 bilaterally. Deep tendon reflexes are 2+ plantar. Assessment/Plan Assessment/Plan ASSESSMENT: This is an 83-year-old female with: 1. Right upper quadrant pain. 2. Acute cholecystitis. 3. Cholelithiasis. 4. Elevated liver function tests. 5. Diverticulitis. 6. Diabetes type 2. 7. Hypertension. 8. Hypercholesterolemia. 9. Asthma. 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 Occult pos stool 12. Leukocytosis TREATMENT: 1. Right upper quadrant pain/diverticulitis. A Gastroenterology consultation has been obtained with Dr. Panda Friedman. 2. Acute cholecystitis/cholelithiasis. 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 S/P endoscopy 04/01/19= large stone in duodenem and tricia-duodenal fistula A General Surgery consultation has been obtained with Dr. Perez. The patient has been started empirically on intravenous ciprofloxacin and metronidazole. Surgery date is pending 3. Elevated liver function tests. Improving. As above, a Gastroenterology consultation has been obtained with Dr. Panda Friedman. Possible colonoscopy and endoscopy for occult blood source 4. Diabetes type 2. The patient has been placed on NovoLog sliding scale. 5. Hypertension. The patient is currently hypotensive. Hold amlodipine above. 6. Hypercholesterolemia. Continue simvastatin 20 mg p.o. daily. 7. Asthma. 8. 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 NPO 10. ABX=zosyn per ID= Isaías Winchester MD Apr 06, 2019 15:31
--- NOTE | 2019-04-06 15:36 | Surgery Progress Note ---
Surgery Progress Note Subjective Procedure Performed 1. diagnostic laparoscopic 2. 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 distal gastrectomy and closure of duodenal stump - B1 4. retrocolic anterior gastrojejunostomy 5. partial omentectomy 6. abdominal drain placement Additional Comments No acute events. Hemodynamic stable. Labs improving. States she is doing well and pain is decreasing but still has incisional pain. Drain output serous. Objective Last 24 Hour Vital Signs Date Time Temp Pulse Resp B/P (MAP) Pulse Ox O2 Delivery O2 Flow Rate FiO2 04/06/19 12:00 Nasal Cannula 2.0 04/06/19 12:00 89 04/06/19 12:00 99.5 89 22 160/70 (100) 99 04/06/19 08:35 96 152/73 04/06/19 08:00 99.8 96 24 152/73 (99) 98 04/06/19 08:00 Nasal Cannula 2.0 04/06/19 08:00 89 04/06/19 07:30 97 Nasal Cannula 2.0 28 04/06/19 04:00 Nasal Cannula 1.0 04/06/19 04:00 97.8 90 20 158/58 (91) 100 04/06/19 03:35 84 04/06/19 00:00 Nasal Cannula 1.0 04/06/19 00:00 97.7 105 22 155/67 (96) 96 04/06/19 00:00 98 04/05/19 20:00 Nasal Cannula 1.0 04/05/19 20:00 97.7 99 20 158/69 (98) 97 04/05/19 19:29 101 04/05/19 18:45 97 Nasal Cannula 2.0 28 04/05/19 16:00 99.7 98 21 148/65 (92) 97 04/05/19 16:00 Nasal Cannula 1.0 I&O Intake and Output 04/05/19 04/06/19 19:00 07:00 Intake Total 600 ml 300 ml Output Total 880 ml 1050 ml Balance -280 ml -750 ml IV Total 600 ml 300 ml Output Urine Total 850 ml 1000 ml Drainage Total 30 ml 50 ml Dressing: dry Wound: clean, dry Drains: justin Cardiovascular: RSR Respiratory: clear Abdomen: soft, flat, tenderness - Incisional, non-distended, decreased bowel sounds Extremities: no edema, no tenderness, no cyanosis Laboratory Tests Test 04/06/19 04:30 White Blood Count 25.2 K/UL (4.8-10.8) *H Red Blood Count 3.65 M/UL (4.20-5.40) L Hemoglobin 10.6 G/DL (12.0-16.0) L Hematocrit 32.5 % (37.0-47.0) L Mean Corpuscular Volume 89 FL (80-99) Mean Corpuscular Hemoglobin 28.9 PG (27.0-31.0) Mean Corpuscular Hemoglobin Concent 32.5 G/DL (32.0-36.0) Red Cell Distribution Width 14.1 % (11.6-14.8) Platelet Count 430 K/UL (150-450) Mean Platelet Volume 4.4 FL (6.5-10.1) L Neutrophils (%) (Auto) % (45.0-75.0) Lymphocytes (%) (Auto) % (20.0-45.0) Monocytes (%) (Auto) % (1.0-10.0) Eosinophils (%) (Auto) % (0.0-3.0) Basophils (%) (Auto) % (0.0-2.0) Differential Total Cells Counted 100 Neutrophils % (Manual) 91 % (45-75) H Lymphocytes % (Manual) 4 % (20-45) L Monocytes % (Manual) 5 % (1-10) Eosinophils % (Manual) 0 % (0-3) Basophils % (Manual) 0 % (0-2) Band Neutrophils 0 % (0-8) Platelet Estimate Adequate Platelet Morphology Normal Hypochromasia 1+ Anisocytosis 1+ Sodium Level 134 MMOL/L (136-145) L Potassium Level 4.3 MMOL/L (3.5-5.1) Chloride Level 102 MMOL/L (98-107) Carbon Dioxide Level 28 MMOL/L (21-32) Anion Gap 4 mmol/L (5-15) L Blood Urea Nitrogen 5 mg/dL (7-18) L Creatinine 0.7 MG/DL (0.55-1.30) Estimat Glomerular Filtration Rate mL/min (>60) Glucose Level 163 MG/DL (74-106) H Calcium Level 9.2 MG/DL (8.5-10.1) Total Bilirubin 0.4 MG/DL (0.2-1.0) Aspartate Amino Transf (AST/SGOT) 19 U/L (15-37) Alanine Aminotransferase (ALT/SGPT) 36 U/L (12-78) Alkaline Phosphatase 121 U/L (46-116) H Total Protein 6.4 G/DL (6.4-8.2) Albumin 2.2 G/DL (3.4-5.0) L Globulin 4.2 g/dL Albumin/Globulin Ratio 0.5 (1.0-2.7) L Assessment Post-op Diagnosis 1. 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
[2019-04-06] MEDS ORDERED: NS 275ml ONE (15:50)
[2019-04-06 16:00] VITALS: BP 152/60
--- NOTE | 2019-04-06 18:59 | Infectious Diseases Prog Note ---
Assessment/Plan Assessment/Plan A: 83 yo female with PMHx of DM, HTN and Asthma who presented to the ED on 03/27/19 with 4 days of abdominal pain. Leukocytosis ( post Op) improving Probable cholecystitis (? fistula) Transaminitis improving 04/03 Sp open cholecystectomy with excision of cholecystoduodenal fistula MRI : 04/02 very large gallstones, as described. Relationship of the gallstones to the duodenal lumen is not optimally demonstrated EGD: 04/01 Gastritis, status post biopsy. Possible stone stuck in the duodenal bulb from the gallbladder fistula CT abd 03/27/19 - Severe distention of the gallbladder, wall thickening, secondary to a large intraluminal gallstones. Cholecystitis is suspected. Correlate clinically. 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 There does appear to be some radiotracer filling the extremely distorted gallbladder, but this could be from the bowel connection, rather than the cystic duct. Leukocytosis -mild ( post EGD), Sp No Fever DM HTN HLD Asthma Arthritis PLAN - Continue Zosyn # 11 /14 - f/u Surgery recs - Monitor CBC and temps . Subjective Allergies: Coded Allergies: No Known Allergies (Unverified , 04/03/17) Subjective transferred to ICU WBC improved Objective Vital Signs Last 24 Hour Vital Signs Date Time Temp Pulse Resp B/P (MAP) Pulse Ox O2 Delivery O2 Flow Rate FiO2 04/06/19 18:30 Nasal Cannula 2.0 04/06/19 18:29 Nasal Cannula 2.0 04/06/19 16:00 99.7 82 24 152/60 (90) 100 04/06/19 16:00 79 04/06/19 16:00 Nasal Cannula 2.0 04/06/19 12:00 Nasal Cannula 2.0 04/06/19 12:00 89 04/06/19 12:00 99.5 89 22 160/70 (100) 99 04/06/19 08:35 96 152/73 04/06/19 08:00 99.8 96 24 152/73 (99) 98 04/06/19 08:00 Nasal Cannula 2.0 04/06/19 08:00 89 04/06/19 07:30 97 Nasal Cannula 2.0 28 04/06/19 04:00 Nasal Cannula 1.0 04/06/19 04:00 97.8 90 20 158/58 (91) 100 04/06/19 03:35 84 04/06/19 00:00 Nasal Cannula 1.0 04/06/19 00:00 97.7 105 22 155/67 (96) 96 04/06/19 00:00 98 04/05/19 20:00 Nasal Cannula 1.0 04/05/19 20:00 97.7 99 20 158/69 (98) 97 04/05/19 19:29 101 Height (Feet): 4 Height (Inches): 5.00 Weight (Pounds): 92 HEENT: anicteric Respiratory/Chest: no respiratory distress Cardiovascular: regular rhythm Abdomen: non distended Laboratory Tests Test 04/06/19 04:30 White Blood Count 25.2 K/UL (4.8-10.8) *H Red Blood Count 3.65 M/UL (4.20-5.40) L Hemoglobin 10.6 G/DL (12.0-16.0) L Hematocrit 32.5 % (37.0-47.0) L Mean Corpuscular Volume 89 FL (80-99) Mean Corpuscular Hemoglobin 28.9 PG (27.0-31.0) Mean Corpuscular Hemoglobin Concent 32.5 G/DL (32.0-36.0) Red Cell Distribution Width 14.1 % (11.6-14.8) Platelet Count 430 K/UL (150-450) Mean Platelet Volume 4.4 FL (6.5-10.1) L Neutrophils (%) (Auto) % (45.0-75.0) Lymphocytes (%) (Auto) % (20.0-45.0) Monocytes (%) (Auto) % (1.0-10.0) Eosinophils (%) (Auto) % (0.0-3.0) Basophils (%) (Auto) % (0.0-2.0) Differential Total Cells Counted 100 Neutrophils % (Manual) 91 % (45-75) H Lymphocytes % (Manual) 4 % (20-45) L Monocytes % (Manual) 5 % (1-10) Eosinophils % (Manual) 0 % (0-3) Basophils % (Manual) 0 % (0-2) Band Neutrophils 0 % (0-8) Platelet Estimate Adequate Platelet Morphology Normal Hypochromasia 1+ Anisocytosis 1+ Sodium Level 134 MMOL/L (136-145) L Potassium Level 4.3 MMOL/L (3.5-5.1) Chloride Level 102 MMOL/L (98-107) Carbon Dioxide Level 28 MMOL/L (21-32) Anion Gap 4 mmol/L (5-15) L Blood Urea Nitrogen 5 mg/dL (7-18) L Creatinine 0.7 MG/DL (0.55-1.30) Estimat Glomerular Filtration Rate mL/min (>60) Glucose Level 163 MG/DL (74-106) H Calcium Level 9.2 MG/DL (8.5-10.1) Total Bilirubin 0.4 MG/DL (0.2-1.0) Aspartate Amino Transf (AST/SGOT) 19 U/L (15-37) Alanine Aminotransferase (ALT/SGPT) 36 U/L (12-78) Alkaline Phosphatase 121 U/L (46-116) H Total Protein 6.4 G/DL (6.4-8.2) Albumin 2.2 G/DL (3.4-5.0) L Globulin 4.2 g/dL Albumin/Globulin Ratio 0.5 (1.0-2.7) L Current Medications Medications (Trade) Dose Ordered Sig/Lora Route PRN Reason Start Time Stop Time Status Last Admin Dose Admin Acetaminophen (Tylenol) 650 mg Q4H PRN RECTAL FEVER 04/04/19 23:30 05/04/19 23:29 04/05/19 04:00 Albuterol/ Ipratropium (Albuterol/ Ipratropium) 3 ml Q4H PRN HHN Shortness of Breath 04/05/19 14:45 04/10/19 14:44 Amlodipine Besylate (Norvasc) 5 mg DAILY ORAL 04/05/19 09:00 05/04/19 08:59 Dextrose (Dextrose 50%) 25 ml Q30M PRN IV Hypoglycemia 04/04/19 23:30 05/04/19 07:29 Dextrose (Dextrose 50%) 50 ml Q30M PRN IV Hypoglycemia 04/04/19 23:30 05/04/19 07:29 Dextrose/ Electrolytes 1,000 ml @ 100 mls/hr Q10H IV 04/04/19 23:15 05/03/19 14:59 04/06/19 14:56 Diphenhydramine HCl (Benadryl) 12.5 mg Q6H PRN IVP Itching/Pruritis 04/04/19 23:30 05/04/19 23:29 Heparin Sodium (Porcine) (Heparin 5000 units/ml) 5,000 units EVERY 12 HOURS SUBQ 04/05/19 09:00 04/26/19 20:59 04/06/19 08:37 Hydralazine HCl (Apresoline) 10 mg Q6H PRN IV SBP>160 mmHg 04/06/19 14:30 05/06/19 14:29 Insulin Aspart (NovoLOG) BEFORE MEALS AND HS SUBQ 04/05/19 06:30 05/04/19 11:29 Metoclopramide HCl (Reglan) 10 mg Q6H PRN IVP Nausea & Vomiting 04/04/19 23:28 05/04/19 23:27 Morphine Sulfate (Morphine Sulfate) 1 mg Q4H PRN IVP pain scale 1-3 04/04/19 23:28 04/11/19 23:27 Morphine Sulfate (Morphine Sulfate) 2 mg Q4H PRN IVP pain scale 4-6 04/04/19 23:28 04/11/19 23:27 Morphine Sulfate (Morphine Sulfate) 4 mg Q4H PRN IVP pain score 7-10 04/04/19 23:29 04/11/19 23:28 Ondansetron HCl (Zofran) 4 mg Q6H PRN IVP Nausea & Vomiting FIRST CHOICE 04/04/19 23:29 05/04/19 23:28 Piperacillin Sod/ Tazobactam Sod 3.375 gm/Sodium Chloride 110 ml @ 27.5 mls/hr EVERY 12 HOURS IVPB 04/06/19 10:00 04/11/19 09:59 04/06/19 10:31 Maksim Davis MD Apr 06, 2019 18:59
--- NOTE | 2019-04-06 19:43 | NUR ---
HAND-OFF: Report given to So DIMITRIOS Kimbrough. Pt in stable condition. Endorsed to So Ri to monitor urine output and any possible urinary retention after recent removal of F/C.
--- NOTE | 2019-04-06 19:44 | NUR ---
NURSE NOTES: pt is awake and resting on the bed, side rails are up x2. pt is at stable condition. pt states no pain at this moment. incision site are clean and intact.no SOB noted. bed is at the lowest position, alarmed, and locked. call light within reach, will continue to monitor with plan of care.
[2019-04-06 20:00] VITALS: BP 136/71
[2019-04-07] VITALS: BP 161/71
[2019-04-07] MEDS: D5 1/2NS w/KCl 20mEq 1,000 ML IV SCH ×3 (01:32→20:57)
--- NOTE | 2019-04-07 03:00 | NUR ---
NURSE NOTES: Bladder Scan shows 0ml for this pt after voiding.
[2019-04-07 04:00] VITALS: BP 157/64
[2019-04-07] MEDS: NovoLOG Insulin Flexpen SUBQ SCH ×4 (05:34→20:56)
[2019-04-07 06:14] LABS: BASOPHILS % (AUTO) 0.6 % (0.0-2.0); EOSINOPHILS % (AUTO) 1.4 % (0.0-3.0); HEMATOCRIT 28.4 % (37.0-47.0); HEMOGLOBIN 9.4 G/DL (12.0-16.0); LYMPHOCYTES % (AUTO) 8.2 % (20.0-45.0); MEAN CORPUSCULAR VOLUME 88 FL (80-99); NEUTROPHILS % (AUTO) 80.8 % (45.0-75.0); PLATELET COUNT 430 K/UL (150-450); RED BLOOD COUNT 3.24 M/UL (4.20-5.40); RED CELL DISTRIBUTION WIDTH 13.2 % (11.6-14.8); WHITE BLOOD COUNT 12.7 K/UL (4.8-10.8)
[2019-04-07 06:18] LABS: ANION GAP 6 mmol/L (5-15); CARBON DIOXIDE 28 MMOL/L (21-32); CHLORIDE 102 MMOL/L (98-107); CREATININE 0.6 MG/DL (0.55-1.30); POTASSIUM 3.6 MMOL/L (3.5-5.1); SODIUM 136 MMOL/L (136-145)
[2019-04-07 06:34] LABS: BLOOD UREA NITROGEN 5 mg/dL (7-18)
--- NOTE | 2019-04-07 07:40 | NUR ---
HAND-OFF: Report given to Frances RN, endorsed regarding no residual in bladder on my shift. 0ml bladder. pt is stable.
[2019-04-07 08:00] VITALS: BP 152/68
--- NOTE | 2019-04-07 08:10 | NUR ---
NURSE NOTES: received pt in the bed, awake, alert, oriented, vital signs stable, no co pin, no SOB, surgical wound on abdomen with staplers, SAMMY on RT abdomen with serosanguineous drainage, skin warm and dry to touch, pt NPO, no BM, dr. Friedman aware, bed in low position, call light within reach.
--- NOTE | 2019-04-07 09:26 | Diagnostic Imaging Report ---
Indication: Shortness of breath Technique: One view of the chest Comparison: 03/27/2019 Findings: Interim development of opacity at the right lung base. This probably represents intrafissural fluid, but could also represent infiltrate. There is suggestion of a small amount of pleural fluid on the left as well. Interval development of atelectasis at the left lung base. The upper lungs are clear. The heart size is upper limits of normal. The aorta is tortuous and calcified Impression: Right basilar opacity, likely pleural fluid, possibly within the major fissure. Component of infiltrate also possible. Small left pleural effusion Left basilar atelectasis
[2019-04-07] MEDS: Piperacillin/Tazobactam 3.375 GM in NS 110 ML IVPB SCH ×2 (09:34→20:57)
[2019-04-07] MEDS: Heparin 5000 units/ml inj SUBQ SCH ×2 (09:36→20:56)
--- NOTE | 2019-04-07 09:49 | NUR ---
CASE MANAGEMENT:REVIEW 04/07/19 SI: POD #4 OPEN CHOLECYSTECTOMY W/EXCISION OF CHOLECYSTODUODENAL FISTULA PARTIAL OMENTECTOMY. DRAIN PLACEMENT 99.4 94 20 157/64 100% ON 2L/NC WBC+12.7 H/H-9.4/28.4 IS: IV ZOSYN Q12 IVF@100/HR NORVASC PO QD HEPARIN SQ Q12 IVF@100/HR : NOW ON STEP DOWN UNIT DCP: PATIENT IS FROM HOME PLAN: NPO DRAIN CONTINUE ABX
--- NOTE | 2019-04-07 10:33 | NUR ---
RADIOLOGY DEPT., CHEST X-RAY DONE.-P.DYE
--- NOTE | 2019-04-07 11:12 | GI Progress Note ---
Assessment/Plan Problems: (1) duodeno-cholecytic fistula (2) Diabetes mellitus ICD Codes: E11.9 - Type 2 diabetes mellitus without complications SNOMED: 63395176 (3) Failure to thrive in adult ICD Codes: R62.7 - Adult failure to thrive SNOMED: 394450874 (4) Elevated liver enzymes ICD Codes: R74.8 - Abnormal levels of other serum enzymes SNOMED: 958929634 (5) Hepatitis ICD Codes: K75.9 - Inflammatory liver disease, unspecified SNOMED: 358601563 (6) Diverticulitis ICD Codes: K57.92 - Diverticulitis of intestine, part unspecified, without perforation or abscess without bleeding SNOMED: 116555334 (7) Cholelithiases ICD Codes: K80.20 - Calculus of gallbladder without cholecystitis without obstruction SNOMED: 201905950 (8) Cholecystitis ICD Codes: K81.9 - Cholecystitis, unspecified SNOMED: 58498154 Status: unchanged Status Narrative Discussed with Dr. Friedman. Assessment/Plan Assessment - diverticulitis - abnormal GB with duodenal fistula - ? cholecystitis, ? GB cancer - Anemia - abnormal LFT s/p EGD SUMMARY OF FINDINGS: 1. Hiatal hernia. 2. Gastritis, status post biopsy. 3. Possible stone stuck in the duodenal bulb from the gallbladder fistula. RECOMMENDATIONS: s/p surg npo ivf iv abx fu surg recs fu labs The patient was seen and examined at bedside and all new and available data was reviewed in the patients chart. I agree with the above findings, impression and plan. (Patient seen earlier today. Signature stamp does not reflect patient encounter time.). - Panda Friedman MD Subjective Subjective limited Objective Last 24 Hour Vital Signs Date Time Temp Pulse Resp B/P (MAP) Pulse Ox O2 Delivery O2 Flow Rate FiO2 04/07/19 08:00 Nasal Cannula 2.0 04/07/19 08:00 84 04/07/19 08:00 97.5 86 20 152/68 (96) 100 04/07/19 07:01 97 Nasal Cannula 2.0 28 04/07/19 04:00 Nasal Cannula 2.0 04/07/19 04:00 99.4 94 20 157/64 (95) 100 04/07/19 03:28 73 04/07/19 00:00 98.4 94 20 161/71 (101) 100 04/07/19 00:00 Nasal Cannula 2.0 04/06/19 23:21 93 04/06/19 20:00 99.6 84 18 136/71 (92) 100 04/06/19 20:00 84 04/06/19 20:00 Nasal Cannula 2.0 04/06/19 18:30 Nasal Cannula 2.0 04/06/19 18:29 Nasal Cannula 2.0 04/06/19 16:00 99.7 82 24 152/60 (90) 100 04/06/19 16:00 79 04/06/19 16:00 Nasal Cannula 2.0 04/06/19 12:00 Nasal Cannula 2.0 04/06/19 12:00 89 04/06/19 12:00 99.5 89 22 160/70 (100) 99 Intake and Output 04/06/19 04/07/19 19:00 07:00 Intake Total 1485.0 ml 1181.08 ml Output Total 1775 ml 865 ml Balance -290.0 ml 316.08 ml IV Total 1485.0 ml 1181.08 ml Output Urine Total 1750 ml 850 ml Drainage Total 25 ml 15 ml # Voids 5 Laboratory Tests Test 04/07/19 05:30 White Blood Count 12.7 K/UL (4.8-10.8) H Red Blood Count 3.24 M/UL (4.20-5.40) L Hemoglobin 9.4 G/DL (12.0-16.0) L Hematocrit 28.4 % (37.0-47.0) L Mean Corpuscular Volume 88 FL (80-99) Mean Corpuscular Hemoglobin 28.9 PG (27.0-31.0) Mean Corpuscular Hemoglobin Concent 33.1 G/DL (32.0-36.0) Red Cell Distribution Width 13.2 % (11.6-14.8) Platelet Count 430 K/UL (150-450) Mean Platelet Volume 5.1 FL (6.5-10.1) L Neutrophils (%) (Auto) 80.8 % (45.0-75.0) H Lymphocytes (%) (Auto) 8.2 % (20.0-45.0) L Monocytes (%) (Auto) 9.0 % (1.0-10.0) Eosinophils (%) (Auto) 1.4 % (0.0-3.0) Basophils (%) (Auto) 0.6 % (0.0-2.0) Sodium Level 136 MMOL/L (136-145) Potassium Level 3.6 MMOL/L (3.5-5.1) Chloride Level 102 MMOL/L (98-107) Carbon Dioxide Level 28 MMOL/L (21-32) Anion Gap 6 mmol/L (5-15) Blood Urea Nitrogen 5 mg/dL (7-18) L Creatinine 0.6 MG/DL (0.55-1.30) Estimat Glomerular Filtration Rate mL/min (>60) Glucose Level 160 MG/DL (74-106) H Calcium Level 9.0 MG/DL (8.5-10.1) Microbiology Date/Time Source Procedure Growth Status 04/06/19 18:00 Indwelling Cath Urine Culture - Preliminary NO GROWTH Resulted Height (Feet): 4 Height (Inches): 5.00 Weight (Pounds): 92 David Vieira NP Apr 07, 2019 11:12
[2019-04-07 12:00] VITALS: BP 143/65
--- NOTE | 2019-04-07 13:41 | Pulmonology Progress Note ---
Assessment/Plan Problems: (1) duodeno-cholecytic fistula (2) Cholecystitis (3) Cholelithiases (4) Hepatitis (5) Failure to thrive in adult (6) Diabetes mellitus (7) Diverticulitis Assessment/Plan doing better still npo continue abx check cultures f/u surgical recommendations sliding scale ileus caused by gall stone. f/u GI recommendations Subjective ROS Limited/Unobtainable: No Constitutional: Reports: no symptoms HEENT: Repors: no symptoms Allergies: Coded Allergies: No Known Allergies (Unverified , 04/03/17) Objective Last 24 Hour Vital Signs Date Time Temp Pulse Resp B/P (MAP) Pulse Ox O2 Delivery O2 Flow Rate FiO2 04/07/19 12:00 99.0 81 18 143/65 (91) 100 04/07/19 12:00 Nasal Cannula 2.0 04/07/19 12:00 80 04/07/19 08:00 Nasal Cannula 2.0 04/07/19 08:00 84 04/07/19 08:00 97.5 86 20 152/68 (96) 100 04/07/19 07:01 97 Nasal Cannula 2.0 28 04/07/19 04:00 Nasal Cannula 2.0 04/07/19 04:00 99.4 94 20 157/64 (95) 100 04/07/19 03:28 73 04/07/19 00:00 98.4 94 20 161/71 (101) 100 04/07/19 00:00 Nasal Cannula 2.0 04/06/19 23:21 93 04/06/19 20:00 99.6 84 18 136/71 (92) 100 04/06/19 20:00 84 04/06/19 20:00 Nasal Cannula 2.0 04/06/19 18:30 Nasal Cannula 2.0 04/06/19 18:29 Nasal Cannula 2.0 04/06/19 16:00 99.7 82 24 152/60 (90) 100 04/06/19 16:00 79 04/06/19 16:00 Nasal Cannula 2.0 Intake and Output 04/06/19 04/07/19 19:00 07:00 Intake Total 1485.0 ml 1181.08 ml Output Total 1775 ml 865 ml Balance -290.0 ml 316.08 ml IV Total 1485.0 ml 1181.08 ml Output Urine Total 1750 ml 850 ml Drainage Total 25 ml 15 ml # Voids 5 Objective General Appearance: WD/WN HEENT: normocephalic, atraumatic Respiratory/Chest: chest wall non-tender, lungs clear Breasts: no masses Cardiovascular: normal peripheral pulses Abdomen: normal bowel sounds, soft, non tender Genitourinary: normal external genitalia Extremities: no clubbing 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6, Sodium Level 136, Potassium Level 3.6, Chloride Level 102, Carbon Dioxide Level 28, Anion Gap 6, Blood Urea Nitrogen 5L, Creatinine 0.6, Estimat Glomerular Filtration Rate , Glucose Level 160H, Calcium Level 9.0 Current Medications Medications (Trade) Dose Ordered Sig/Lora Route PRN Reason Start Time Stop Time Status Last Admin Dose Admin Acetaminophen (Tylenol) 650 mg Q4H PRN RECTAL FEVER 04/04/19 23:30 05/04/19 23:29 04/05/19 04:00 Albuterol/ Ipratropium (Albuterol/ Ipratropium) 3 ml Q4H PRN HHN Shortness of Breath 04/05/19 14:45 04/10/19 14:44 Amlodipine Besylate (Norvasc) 5 mg DAILY ORAL 04/05/19 09:00 05/04/19 08:59 Dextrose (Dextrose 50%) 25 ml Q30M PRN IV Hypoglycemia 04/04/19 23:30 05/04/19 07:29 Dextrose (Dextrose 50%) 50 ml Q30M PRN IV Hypoglycemia 04/04/19 23:30 05/04/19 07:29 Dextrose/ Electrolytes 1,000 ml @ 100 mls/hr Q10H IV 04/04/19 23:15 05/03/19 14:59 04/07/19 11:40 Diphenhydramine HCl (Benadryl) 12.5 mg Q6H PRN IVP Itching/Pruritis 04/04/19 23:30 05/04/19 23:29 Heparin Sodium (Porcine) (Heparin 5000 units/ml) 5,000 units EVERY 12 HOURS SUBQ 04/05/19 09:00 04/26/19 20:59 04/07/19 09:36 Hydralazine HCl (Apresoline) 10 mg Q6H PRN IV SBP>160 mmHg 04/06/19 14:30 05/06/19 14:29 Insulin Aspart (NovoLOG) BEFORE MEALS AND HS SUBQ 04/05/19 06:30 05/04/19 11:29 Metoclopramide HCl (Reglan) 10 mg Q6H PRN IVP Nausea & Vomiting 04/04/19 23:28 05/04/19 23:27 Morphine Sulfate (Morphine Sulfate) 1 mg Q4H PRN IVP pain scale 1-3 04/04/19 23:28 04/11/19 23:27 Morphine Sulfate (Morphine Sulfate) 2 mg Q4H PRN IVP pain scale 4-6 04/04/19 23:28 04/11/19 23:27 Morphine Sulfate (Morphine Sulfate) 4 mg Q4H PRN IVP pain score 7-10 04/04/19 23:29 04/11/19 23:28 Ondansetron HCl (Zofran) 4 mg Q6H PRN IVP Nausea & Vomiting FIRST CHOICE 04/04/19 23:29 05/04/19 23:28 Piperacillin Sod/ Tazobactam Sod 3.375 gm/Sodium Chloride 110 ml @ 27.5 mls/hr EVERY 12 HOURS IVPB 04/06/19 10:00 04/11/19 09:59 04/07/19 09:34 Dony Eli MD Apr 07, 2019 13:41
--- NOTE | 2019-04-07 14:00 | NUR ---
NURSE NOTES: pt resting, no any distress at this time, repositioned, continue monitoring.
--- NOTE | 2019-04-07 14:55 | Infectious Diseases Prog Note ---
Assessment/Plan Assessment/Plan A: 83 yo female with PMHx of DM, HTN and Asthma who presented to the ED on 03/27/19 with 4 days of abdominal pain. doubt Pneum clinically XR: Right basilar opacity, likely pleural fluid, possibly within the major fissure. Component of infiltrate also possible Leukocytosis ( post Op) improving Probable cholecystitis (? fistula) Transaminitis improving 04/03 Sp open cholecystectomy with excision of cholecystoduodenal fistula MRI : 04/02 very large gallstones, as described. Relationship of the gallstones to the duodenal lumen is not optimally demonstrated EGD: 04/01 Gastritis, status post biopsy. Possible stone stuck in the duodenal bulb from the gallbladder fistula CT abd 03/27/19 - Severe distention of the gallbladder, wall thickening, secondary to a large intraluminal gallstones. Cholecystitis is suspected. Correlate clinically. 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 There does appear to be some radiotracer filling the extremely distorted gallbladder, but this could be from the bowel connection, rather than the cystic duct. Leukocytosis -mild ( post EGD), Sp No Fever DM HTN HLD Asthma Arthritis PLAN - Continue Zosyn # 12 /14 - f/u Surgery recs - Monitor CBC and temps . Subjective Allergies: Coded Allergies: No Known Allergies (Unverified , 04/03/17) Subjective WBC improving Objective Vital Signs Last 24 Hour Vital Signs Date Time Temp Pulse Resp B/P (MAP) Pulse Ox O2 Delivery O2 Flow Rate FiO2 04/07/19 12:00 99.0 81 18 143/65 (91) 100 04/07/19 12:00 Nasal Cannula 2.0 04/07/19 12:00 80 04/07/19 08:00 Nasal Cannula 2.0 04/07/19 08:00 84 04/07/19 08:00 97.5 86 20 152/68 (96) 100 04/07/19 07:01 97 Nasal Cannula 2.0 28 04/07/19 04:00 Nasal Cannula 2.0 04/07/19 04:00 99.4 94 20 157/64 (95) 100 04/07/19 03:28 73 04/07/19 00:00 98.4 94 20 161/71 (101) 100 04/07/19 00:00 Nasal Cannula 2.0 04/06/19 23:21 93 04/06/19 20:00 99.6 84 18 136/71 (92) 100 04/06/19 20:00 84 04/06/19 20:00 Nasal Cannula 2.0 04/06/19 18:30 Nasal Cannula 2.0 04/06/19 18:29 Nasal Cannula 2.0 04/06/19 16:00 99.7 82 24 152/60 (90) 100 04/06/19 16:00 79 04/06/19 16:00 Nasal Cannula 2.0 Height (Feet): 4 Height (Inches): 5.00 Weight (Pounds): 92 Respiratory/Chest: lungs clear Cardiovascular: normal rate Abdomen: soft, non tender Microbiology Date/Time Source Procedure Growth Status 04/06/19 18:00 Indwelling Cath Urine Culture - Preliminary NO GROWTH Resulted Laboratory Tests Test 04/07/19 05:30 White Blood Count 12.7 K/UL (4.8-10.8) H Red Blood Count 3.24 M/UL (4.20-5.40) L Hemoglobin 9.4 G/DL (12.0-16.0) L Hematocrit 28.4 % (37.0-47.0) L Mean Corpuscular Volume 88 FL (80-99) Mean Corpuscular Hemoglobin 28.9 PG (27.0-31.0) Mean Corpuscular Hemoglobin Concent 33.1 G/DL (32.0-36.0) Red Cell Distribution Width 13.2 % (11.6-14.8) Platelet Count 430 K/UL (150-450) Mean Platelet Volume 5.1 FL (6.5-10.1) L Neutrophils (%) (Auto) 80.8 % (45.0-75.0) H Lymphocytes (%) (Auto) 8.2 % (20.0-45.0) L Monocytes (%) (Auto) 9.0 % (1.0-10.0) Eosinophils (%) (Auto) 1.4 % (0.0-3.0) Basophils (%) (Auto) 0.6 % (0.0-2.0) Sodium Level 136 MMOL/L (136-145) Potassium Level 3.6 MMOL/L (3.5-5.1) Chloride Level 102 MMOL/L (98-107) Carbon Dioxide Level 28 MMOL/L (21-32) Anion Gap 6 mmol/L (5-15) Blood Urea Nitrogen 5 mg/dL (7-18) L Creatinine 0.6 MG/DL (0.55-1.30) Estimat Glomerular Filtration Rate mL/min (>60) Glucose Level 160 MG/DL (74-106) H Calcium Level 9.0 MG/DL (8.5-10.1) Current Medications Medications (Trade) Dose Ordered Sig/Lora Route PRN Reason Start Time Stop Time Status Last Admin Dose Admin Acetaminophen (Tylenol) 650 mg Q4H PRN RECTAL FEVER 04/04/19 23:30 05/04/19 23:29 04/05/19 04:00 Albuterol/ Ipratropium (Albuterol/ Ipratropium) 3 ml Q4H PRN HHN Shortness of Breath 04/05/19 14:45 04/10/19 14:44 Amlodipine Besylate (Norvasc) 5 mg DAILY ORAL 04/05/19 09:00 05/04/19 08:59 Dextrose (Dextrose 50%) 25 ml Q30M PRN IV Hypoglycemia 04/04/19 23:30 05/04/19 07:29 Dextrose (Dextrose 50%) 50 ml Q30M PRN IV Hypoglycemia 04/04/19 23:30 05/04/19 07:29 Dextrose/ Electrolytes 1,000 ml @ 100 mls/hr Q10H IV 04/04/19 23:15 05/03/19 14:59 04/07/19 11:40 Diphenhydramine HCl (Benadryl) 12.5 mg Q6H PRN IVP Itching/Pruritis 04/04/19 23:30 05/04/19 23:29 Heparin Sodium (Porcine) (Heparin 5000 units/ml) 5,000 units EVERY 12 HOURS SUBQ 04/05/19 09:00 04/26/19 20:59 04/07/19 09:36 Hydralazine HCl (Apresoline) 10 mg Q6H PRN IV SBP>160 mmHg 04/06/19 14:30 05/06/19 14:29 Insulin Aspart (NovoLOG) BEFORE MEALS AND HS SUBQ 04/05/19 06:30 05/04/19 11:29 Metoclopramide HCl (Reglan) 10 mg Q6H PRN IVP Nausea & Vomiting 04/04/19 23:28 05/04/19 23:27 Morphine Sulfate (Morphine Sulfate) 1 mg Q4H PRN IVP pain scale 1-3 04/04/19 23:28 04/11/19 23:27 Morphine Sulfate (Morphine Sulfate) 2 mg Q4H PRN IVP pain scale 4-6 04/04/19 23:28 04/11/19 23:27 Morphine Sulfate (Morphine Sulfate) 4 mg Q4H PRN IVP pain score 7-10 04/04/19 23:29 04/11/19 23:28 Ondansetron HCl (Zofran) 4 mg Q6H PRN IVP Nausea & Vomiting FIRST CHOICE 04/04/19 23:29 05/04/19 23:28 Piperacillin Sod/ Tazobactam Sod 3.375 gm/Sodium Chloride 110 ml @ 27.5 mls/hr EVERY 12 HOURS IVPB 04/06/19 10:00 04/11/19 09:59 04/07/19 09:34 Maksim Davis MD Apr 07, 2019 14:55
--- NOTE | 2019-04-07 15:00 | NUR ---
NURSE NOTES: dressing changed on sacral area.
--- NOTE | 2019-04-07 15:54 | Surgery Progress Note ---
Surgery Progress Note Subjective Procedure Performed 1. diagnostic laparoscopic 2. 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 distal gastrectomy and closure of duodenal stump - B1 4. retrocolic anterior gastrojejunostomy 5. partial omentectomy 6. abdominal drain placement Additional Comments Afebrile, hemodynamically stable, leukocytosis improving. States pain is mildly better today. Is developing an appetite. No nausea vomiting fever chills. Objective Last 24 Hour Vital Signs Date Time Temp Pulse Resp B/P (MAP) Pulse Ox O2 Delivery O2 Flow Rate FiO2 04/07/19 12:00 99.0 81 18 143/65 (91) 100 04/07/19 12:00 Nasal Cannula 2.0 04/07/19 12:00 80 04/07/19 08:00 Nasal Cannula 2.0 04/07/19 08:00 84 04/07/19 08:00 97.5 86 20 152/68 (96) 100 04/07/19 07:01 97 Nasal Cannula 2.0 28 04/07/19 04:00 Nasal Cannula 2.0 04/07/19 04:00 99.4 94 20 157/64 (95) 100 04/07/19 03:28 73 04/07/19 00:00 98.4 94 20 161/71 (101) 100 04/07/19 00:00 Nasal Cannula 2.0 04/06/19 23:21 93 04/06/19 20:00 99.6 84 18 136/71 (92) 100 04/06/19 20:00 84 04/06/19 20:00 Nasal Cannula 2.0 04/06/19 18:30 Nasal Cannula 2.0 04/06/19 18:29 Nasal Cannula 2.0 04/06/19 16:00 99.7 82 24 152/60 (90) 100 04/06/19 16:00 79 04/06/19 16:00 Nasal Cannula 2.0 I&O Intake and Output 04/06/19 04/07/19 19:00 07:00 Intake Total 1485.0 ml 1181.08 ml Output Total 1775 ml 865 ml Balance -290.0 ml 316.08 ml IV Total 1485.0 ml 1181.08 ml Output Urine Total 1750 ml 850 ml Drainage Total 25 ml 15 ml # Voids 5 Dressing: dry Wound: clean, dry Drains: justin Cardiovascular: RSR Respiratory: clear Abdomen: soft, non-tender, non-distended, decreased bowel sounds Extremities: no cyanosis Laboratory Tests Test 04/07/19 05:30 White Blood Count 12.7 K/UL (4.8-10.8) H Red Blood Count 3.24 M/UL (4.20-5.40) L Hemoglobin 9.4 G/DL (12.0-16.0) L Hematocrit 28.4 % (37.0-47.0) L Mean Corpuscular Volume 88 FL (80-99) Mean Corpuscular Hemoglobin 28.9 PG (27.0-31.0) Mean Corpuscular Hemoglobin Concent 33.1 G/DL (32.0-36.0) Red Cell Distribution Width 13.2 % (11.6-14.8) Platelet Count 430 K/UL (150-450) Mean Platelet Volume 5.1 FL (6.5-10.1) L Neutrophils (%) (Auto) 80.8 % (45.0-75.0) H Lymphocytes (%) (Auto) 8.2 % (20.0-45.0) L Monocytes (%) (Auto) 9.0 % (1.0-10.0) Eosinophils (%) (Auto) 1.4 % (0.0-3.0) Basophils (%) (Auto) 0.6 % (0.0-2.0) Sodium Level 136 MMOL/L (136-145) Potassium Level 3.6 MMOL/L (3.5-5.1) Chloride Level 102 MMOL/L (98-107) Carbon Dioxide Level 28 MMOL/L (21-32) Anion Gap 6 mmol/L (5-15) Blood Urea Nitrogen 5 mg/dL (7-18) L Creatinine 0.6 MG/DL (0.55-1.30) Estimat Glomerular Filtration Rate mL/min (>60) Glucose Level 160 MG/DL (74-106) H Calcium Level 9.0 MG/DL (8.5-10.1) Assessment Post-op Diagnosis 1. 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 if no leak can start diet slowly iv fluids iv abx trend labs ambulate and out of bed Alexandro Perez Apr 07, 2019 15:54
[2019-04-07 16:00] VITALS: BP_SYST 151; BP_SYST 162; BP_DIAS 64; BP_DIAS 71
--- NOTE | 2019-04-07 19:13 | NUR ---
HAND-OFF: Report given to HAWA PLUNKETT, no distressat this time. Addendum: 04/07/19 at 1914 by STEFF ENCARNACION RN gurvinder nurse
--- NOTE | 2019-04-07 19:15 | NUR ---
HAND-OFF: Report given to NIXON PLUNKETT.
--- NOTE | 2019-04-07 19:16 | NUR ---
NURSE NOTES: Received bedside report from DIMITRIOS Muniz.Patient stable,no c/o pain,no respiratory distress noted,A&Ox 4,Sami speaking,tolerated 2L/min via N/C,pt NPO,no meds,only IV meds as needed,BS active in all quadrants,IV on R f/arm G 22 running with D 5 NSw/20 KCl @ 100ml/hr,intact asymptomatic.Bed secured in a low safety position,call light within a reach,will continue to monitor and follow POC.
[2019-04-07 20:00] VITALS: BP 162/82
--- NOTE | 2019-04-07 20:30 | Internal Med Progress Note ---
Subjective Date of Service: Apr 07, 2019 Physician Name Isaías Atwood Attending Physician Logan Camargo MD Current Medications Medications (Trade) Dose Ordered Sig/Lora Route PRN Reason Start Time Stop Time Status Last Admin Dose Admin Acetaminophen (Tylenol) 650 mg Q4H PRN RECTAL FEVER 04/04/19 23:30 05/04/19 23:29 04/05/19 04:00 Albuterol/ Ipratropium (Albuterol/ Ipratropium) 3 ml Q4H PRN HHN Shortness of Breath 04/05/19 14:45 04/10/19 14:44 Amlodipine Besylate (Norvasc) 5 mg DAILY ORAL 04/05/19 09:00 05/04/19 08:59 Dextrose (Dextrose 50%) 25 ml Q30M PRN IV Hypoglycemia 04/04/19 23:30 05/04/19 07:29 Dextrose (Dextrose 50%) 50 ml Q30M PRN IV Hypoglycemia 04/04/19 23:30 05/04/19 07:29 Dextrose/ Electrolytes 1,000 ml @ 100 mls/hr Q10H IV 04/04/19 23:15 05/03/19 14:59 04/07/19 11:40 Diphenhydramine HCl (Benadryl) 12.5 mg Q6H PRN IVP Itching/Pruritis 04/04/19 23:30 05/04/19 23:29 Heparin Sodium (Porcine) (Heparin 5000 units/ml) 5,000 units EVERY 12 HOURS SUBQ 04/05/19 09:00 04/26/19 20:59 04/07/19 09:36 Hydralazine HCl (Apresoline) 10 mg Q6H PRN IV SBP>160 mmHg 04/06/19 14:30 05/06/19 14:29 Insulin Aspart (NovoLOG) BEFORE MEALS AND HS SUBQ 04/05/19 06:30 05/04/19 11:29 Metoclopramide HCl (Reglan) 10 mg Q6H PRN IVP Nausea & Vomiting 04/04/19 23:28 05/04/19 23:27 Morphine Sulfate (Morphine Sulfate) 1 mg Q4H PRN IVP pain scale 1-3 04/04/19 23:28 04/11/19 23:27 Morphine Sulfate (Morphine Sulfate) 2 mg Q4H PRN IVP pain scale 4-6 04/04/19 23:28 04/11/19 23:27 Morphine Sulfate (Morphine Sulfate) 4 mg Q4H PRN IVP pain score 7-10 04/04/19 23:29 04/11/19 23:28 Ondansetron HCl (Zofran) 4 mg Q6H PRN IVP Nausea & Vomiting FIRST CHOICE 04/04/19 23:29 05/04/19 23:28 Piperacillin Sod/ Tazobactam Sod 3.375 gm/Sodium Chloride 110 ml @ 27.5 mls/hr EVERY 12 HOURS IVPB 04/06/19 10:00 04/11/19 09:59 04/07/19 09:34 Allergies: Coded Allergies: No Known Allergies (Unverified , 04/03/17) ROS Limited/Unobtainable: No Constitutional: Reports: no symptoms HEENT: Reports: no symptoms Cardiovascular: Reports: no symptoms Respiratory: Reports: no symptoms Gastrointestinal/Abdominal: Reports: no symptoms Genitourinary: Reports: no symptoms Neurologic/Psychiatric: Reports: no symptoms Subjective 83 YO F admitted with right upper quadrant pain. Now acute cholecystitis and cholelithiasis. Cover for Int Med-Dr Camargo. 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 DOUG. Worsening WBC Objective Last Vital Signs Date Time Temp Pulse Resp B/P (MAP) Pulse Ox O2 Delivery O2 Flow Rate FiO2 04/07/19 19:59 100 Nasal Cannula 2.0 28 04/07/19 16:00 98.2 81 18 151/64 (93) Laboratory Tests Test 04/07/19 05:30 White Blood Count 12.7 K/UL (4.8-10.8) H Red Blood Count 3.24 M/UL (4.20-5.40) L Hemoglobin 9.4 G/DL (12.0-16.0) L Hematocrit 28.4 % (37.0-47.0) L Mean Corpuscular Volume 88 FL (80-99) Mean Corpuscular Hemoglobin 28.9 PG (27.0-31.0) Mean Corpuscular Hemoglobin Concent 33.1 G/DL (32.0-36.0) Red Cell Distribution Width 13.2 % (11.6-14.8) Platelet Count 430 K/UL (150-450) Mean Platelet Volume 5.1 FL (6.5-10.1) L Neutrophils (%) (Auto) 80.8 % (45.0-75.0) H Lymphocytes (%) (Auto) 8.2 % (20.0-45.0) L Monocytes (%) (Auto) 9.0 % (1.0-10.0) Eosinophils (%) (Auto) 1.4 % (0.0-3.0) Basophils (%) (Auto) 0.6 % (0.0-2.0) Sodium Level 136 MMOL/L (136-145) Potassium Level 3.6 MMOL/L (3.5-5.1) Chloride Level 102 MMOL/L (98-107) Carbon Dioxide Level 28 MMOL/L (21-32) Anion Gap 6 mmol/L (5-15) Blood Urea Nitrogen 5 mg/dL (7-18) L Creatinine 0.6 MG/DL (0.55-1.30) Estimat Glomerular Filtration Rate mL/min (>60) Glucose Level 160 MG/DL (74-106) H Calcium Level 9.0 MG/DL (8.5-10.1) Microbiology Date/Time Source Procedure Growth Status 04/06/19 18:00 Indwelling Cath Urine Culture - Preliminary NO GROWTH Resulted Intake and Output 04/06/19 04/07/19 19:00 07:00 Intake Total 1485.0 ml 1181.08 ml Output Total 1775 ml 865 ml Balance -290.0 ml 316.08 ml IV Total 1485.0 ml 1181.08 ml Output Urine Total 1750 ml 850 ml Drainage Total 25 ml 15 ml # Voids 5 Objective PHYSICAL EXAMINATION: GENERAL: The patient is a well-developed and well-nourished female, in no apparent distress. HEENT: Eyes, pupils are equal and responsive to light and accommodation. Extraocular movements are intact. NECK: Supple without lymphadenopathy. CHEST: Lungs are clear to auscultation bilaterally without wheezes or rales. CARDIOVASCULAR: Regular rhythm and rate. S1, S2 normal without murmurs, rubs, or gallops. ABDOMEN: Soft, nondistended with decreased bowel sounds. There is pain to palpation to right upper quadrant. No evidence of rebound or guarding noted. EXTREMITIES: Negative for clubbing, cyanosis, or edema. RECTAL/GENITAL: Not performed. NEUROLOGIC: Cranial nerves II through XII are grossly intact without focal deficits. Motor strength is 5/5 bilaterally. Deep tendon reflexes are 2+ plantar. Assessment/Plan Assessment/Plan ASSESSMENT: This is an 83-year-old female with: 1. Right upper quadrant pain. 2. Acute cholecystitis. 3. Cholelithiasis. 4. Elevated liver function tests. 5. Diverticulitis. 6. Diabetes type 2. 7. Hypertension. 8. Hypercholesterolemia. 9. Asthma. 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 Occult pos stool 12. Leukocytosis TREATMENT: 1. Right upper quadrant pain/diverticulitis. A Gastroenterology consultation has been obtained with Dr. Panda Friedman. 2. Acute cholecystitis/cholelithiasis. 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 S/P endoscopy 04/01/19= large stone in duodenem and tricia-duodenal fistula A General Surgery consultation has been obtained with Dr. Perez. The patient has been started empirically on intravenous ciprofloxacin and metronidazole. Surgery date is pending 3. Elevated liver function tests. Improving. As above, a Gastroenterology consultation has been obtained with Dr. Panda Friedman. Possible colonoscopy and endoscopy for occult blood source 4. Diabetes type 2. The patient has been placed on NovoLog sliding scale. 5. Hypertension. The patient is currently hypotensive. Hold amlodipine above. 6. Hypercholesterolemia. Continue simvastatin 20 mg p.o. daily. 7. Asthma. 8. 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 NPO 10. ABX=zosyn per ID= Isaías Winchester MD Apr 07, 2019 20:30
[2019-04-08] VITALS (7 sets, daily range): BP systolic 147–158; BP diastolic 54–78
[2019-04-08 04:29] LABS: BASOPHILS % (AUTO) 0.6 % (0.0-2.0); EOSINOPHILS % (AUTO) 2.6 % (0.0-3.0); HEMATOCRIT 30.6 % (37.0-47.0); HEMOGLOBIN 9.9 G/DL (12.0-16.0); MEAN CORPUSCULAR VOLUME 88 FL (80-99); MONOCYTES % (AUTO) 10.8 % (1.0-10.0); NEUTROPHILS % (AUTO) 74.9 % (45.0-75.0); PLATELET COUNT 465 K/UL (150-450); RED BLOOD COUNT 3.48 M/UL (4.20-5.40); RED CELL DISTRIBUTION WIDTH 13.9 % (11.6-14.8); WHITE BLOOD COUNT 11.2 K/UL (4.8-10.8)
[2019-04-08 04:43] LABS: ANION GAP 4 mmol/L (5-15); BLOOD UREA NITROGEN 4 mg/dL (7-18); CALCIUM 9.4 MG/DL (8.5-10.1); CARBON DIOXIDE 29 MMOL/L (21-32); CHLORIDE 102 MMOL/L (98-107); CREATININE 0.6 MG/DL (0.55-1.30); PHOSPHORUS 3.3 MG/DL (2.5-4.9); POTASSIUM 3.8 MMOL/L (3.5-5.1); SODIUM 135 MMOL/L (136-145)
[2019-04-08] MEDS: NovoLOG Insulin Flexpen SUBQ SCH ×4 (06:03→20:34)
--- NOTE | 2019-04-08 07:16 | NUR ---
HAND-OFF: Report given to DIMITRIOS Muniz.Patient stable,sleeping.
--- NOTE | 2019-04-08 08:08 | NUR ---
NURSE NOTES: received pt in the bed, awake, alert, oriented, vital signs stable,no co pain, no SOB, surgical wound on abdomen with staplers, SAMMY on RT abdomen with serosanguineous drainage, NPO, skin warm and dry to touch, bed in low position, call light within reach.
[2019-04-08] MEDS: Piperacillin/Tazobactam 3.375 GM in NS 110 ML IVPB SCH ×2 (08:22→20:34)
[2019-04-08] MEDS: D5 1/2NS w/KCl 20mEq 1,000 ML IV SCH ×2 (08:22→12:31)
[2019-04-08] MEDS: Heparin 5000 units/ml inj SUBQ SCH ×2 (08:24→20:37)
--- NOTE | 2019-04-08 10:31 | Surgery Progress Note ---
Surgery Progress Note Subjective Procedure Performed 1. diagnostic laparoscopic 2. 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 distal gastrectomy and closure of duodenal stump - B1 4. retrocolic anterior gastrojejunostomy 5. partial omentectomy 6. abdominal drain placement Additional Comments afebrile, HD Stable improving labs improving exam stable drain serous Objective Last 24 Hour Vital Signs Date Time Temp Pulse Resp B/P (MAP) Pulse Ox O2 Delivery O2 Flow Rate FiO2 04/08/19 09:19 84 04/08/19 09:00 83 152/59 04/08/19 08:59 99 Nasal Cannula 2.0 28 04/08/19 08:00 98.2 83 20 152/59 (90) 98 04/08/19 08:00 Nasal Cannula 2.0 04/08/19 04:00 98.6 77 22 147/57 (87) 100 04/08/19 04:00 Nasal Cannula 2.0 04/08/19 03:49 77 04/08/19 00:00 Nasal Cannula 2.0 04/08/19 00:00 98.2 97 22 148/58 (88) 99 04/07/19 23:34 92 04/07/19 20:57 162/82 04/07/19 20:00 98.1 83 24 162/82 (108) 99 04/07/19 20:00 Nasal Cannula 2.0 04/07/19 19:59 100 Nasal Cannula 2.0 28 04/07/19 19:47 83 04/07/19 16:00 Nasal Cannula 2.0 04/07/19 16:00 98.2 81 18 151/64 (93) 97 04/07/19 16:00 76 04/07/19 12:00 99.0 81 18 143/65 (91) 100 04/07/19 12:00 Nasal Cannula 2.0 04/07/19 12:00 80 I&O Intake and Output 04/07/19 04/08/19 19:00 07:00 Intake Total 1250.0 ml 1210.0 ml Output Total 20 ml Balance 1230.0 ml 1210.0 ml IV Total 1250.0 ml 1210.0 ml Drainage Total 20 ml # Voids 4 Dressing: dry Wound: clean Drains: justin Cardiovascular: RSR Respiratory: clear Abdomen: soft, flat, non-tender, non-distended, decreased bowel sounds Extremities: no edema, no tenderness, no cyanosis Laboratory Tests Test 04/08/19 04:10 White Blood Count 11.2 K/UL (4.8-10.8) H Red Blood Count 3.48 M/UL (4.20-5.40) L Hemoglobin 9.9 G/DL (12.0-16.0) L Hematocrit 30.6 % (37.0-47.0) L Mean Corpuscular Volume 88 FL (80-99) Mean Corpuscular Hemoglobin 28.5 PG (27.0-31.0) Mean Corpuscular Hemoglobin Concent 32.5 G/DL (32.0-36.0) Red Cell Distribution Width 13.9 % (11.6-14.8) Platelet Count 465 K/UL (150-450) H Mean Platelet Volume 4.6 FL (6.5-10.1) L Neutrophils (%) (Auto) 74.9 % (45.0-75.0) Lymphocytes (%) (Auto) 11.0 % (20.0-45.0) L Monocytes (%) (Auto) 10.8 % (1.0-10.0) H Eosinophils (%) (Auto) 2.6 % (0.0-3.0) Basophils (%) (Auto) 0.6 % (0.0-2.0) Sodium Level 135 MMOL/L (136-145) L Potassium Level 3.8 MMOL/L (3.5-5.1) Chloride Level 102 MMOL/L (98-107) Carbon Dioxide Level 29 MMOL/L (21-32) Anion Gap 4 mmol/L (5-15) L Blood Urea Nitrogen 4 mg/dL (7-18) L Creatinine 0.6 MG/DL (0.55-1.30) Estimat Glomerular Filtration Rate mL/min (>60) Glucose Level 153 MG/DL (74-106) H Calcium Level 9.4 MG/DL (8.5-10.1) Phosphorus Level 3.3 MG/DL (2.5-4.9) Magnesium Level 1.7 MG/DL (1.8-2.4) L Assessment Post-op Diagnosis 1. 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 if no leak can start diet slowly iv fluids iv abx trend labs ambulate and out of bed Alexandro Perez Apr 08, 2019 10:31
--- NOTE | 2019-04-08 10:59 | Pulmonology Progress Note ---
Assessment/Plan Problems: (1) duodeno-cholecytic fistula (2) Cholecystitis (3) Cholelithiases (4) Hepatitis (5) Failure to thrive in adult (6) Diabetes mellitus (7) Diverticulitis Assessment/Plan doing better still npo continue abx, wbc decreasing decrease IV fluids Mg supplement check cultures f/u surgical recommendations sliding scale f/u GI recommendations Subjective Interval Events: doing better, pain is less Allergies: Coded Allergies: No Known Allergies (Unverified , 04/03/17) Objective Last 24 Hour Vital Signs Date Time Temp Pulse Resp B/P (MAP) Pulse Ox O2 Delivery O2 Flow Rate FiO2 04/08/19 09:19 84 04/08/19 09:00 83 152/59 04/08/19 08:59 99 Nasal Cannula 2.0 28 04/08/19 08:00 98.2 83 20 152/59 (90) 98 04/08/19 08:00 Nasal Cannula 2.0 04/08/19 04:00 98.6 77 22 147/57 (87) 100 04/08/19 04:00 Nasal Cannula 2.0 04/08/19 03:49 77 04/08/19 00:00 Nasal Cannula 2.0 04/08/19 00:00 98.2 97 22 148/58 (88) 99 04/07/19 23:34 92 04/07/19 20:57 162/82 04/07/19 20:00 98.1 83 24 162/82 (108) 99 04/07/19 20:00 Nasal Cannula 2.0 04/07/19 19:59 100 Nasal Cannula 2.0 28 04/07/19 19:47 83 04/07/19 16:00 Nasal Cannula 2.0 04/07/19 16:00 98.2 81 18 151/64 (93) 97 04/07/19 16:00 76 04/07/19 12:00 99.0 81 18 143/65 (91) 100 04/07/19 12:00 Nasal Cannula 2.0 04/07/19 12:00 80 Intake and Output 04/07/19 04/08/19 19:00 07:00 Intake Total 1250.0 ml 1210.0 ml Output Total 20 ml Balance 1230.0 ml 1210.0 ml IV Total 1250.0 ml 1210.0 ml Drainage Total 20 ml # Voids 4 Objective General Appearance: WD/WN HEENT: normocephalic, atraumatic Respiratory/Chest: chest wall non-tender, lungs clear Breasts: no masses Cardiovascular: normal peripheral pulses Abdomen: normal bowel sounds, soft, non tender Genitourinary: normal external genitalia Extremities: no clubbing 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 Lymphatic: no neck adenopathy Microbiology Date/Time Source Procedure Growth Status 04/06/19 18:00 Indwelling Cath Urine Culture - Final NO GROWTH AFTER 48 HOURS Complete Laboratory Tests 04/08/19 04:10: White Blood Count 11.2H, Red Blood Count 3.48L, Hemoglobin 9.9L, Hematocrit 30.6L, Mean Corpuscular Volume 88, Mean Corpuscular Hemoglobin 28.5, Mean Corpuscular Hemoglobin Concent 32.5, Red Cell Distribution Width 13.9, Platelet Count 465H, Mean Platelet Volume 4.6L, Neutrophils (%) (Auto) 74.9, Lymphocytes (%) (Auto) 11.0L, Monocytes (%) (Auto) 10.8H, Eosinophils (%) (Auto) 2.6, Basophils (%) (Auto) 0.6, Sodium Level 135L, Potassium Level 3.8, Chloride Level 102, Carbon Dioxide Level 29, Anion Gap 4L, Blood Urea Nitrogen 4L, Creatinine 0.6, Estimat Glomerular Filtration Rate , Glucose Level 153H, Calcium Level 9.4, Phosphorus Level 3.3, Magnesium Level 1.7L Current Medications Medications (Trade) Dose Ordered Sig/Lora Route PRN Reason Start Time Stop Time Status Last Admin Dose Admin Acetaminophen (Tylenol) 650 mg Q4H PRN RECTAL FEVER 04/04/19 23:30 05/04/19 23:29 04/05/19 04:00 Albuterol/ Ipratropium (Albuterol/ Ipratropium) 3 ml Q4H PRN HHN Shortness of Breath 04/05/19 14:45 04/10/19 14:44 Amlodipine Besylate (Norvasc) 5 mg DAILY ORAL 04/05/19 09:00 05/04/19 08:59 Dextrose (Dextrose 50%) 25 ml Q30M PRN IV Hypoglycemia 04/04/19 23:30 05/04/19 07:29 Dextrose (Dextrose 50%) 50 ml Q30M PRN IV Hypoglycemia 04/04/19 23:30 05/04/19 07:29 Dextrose/ Electrolytes 1,000 ml @ 100 mls/hr Q10H IV 04/04/19 23:15 05/03/19 14:59 04/08/19 08:22 Diphenhydramine HCl (Benadryl) 12.5 mg Q6H PRN IVP Itching/Pruritis 04/04/19 23:30 05/04/19 23:29 Heparin Sodium (Porcine) (Heparin 5000 units/ml) 5,000 units EVERY 12 HOURS SUBQ 04/05/19 09:00 04/26/19 20:59 04/08/19 08:24 Hydralazine HCl (Apresoline) 10 mg Q6H PRN IV SBP>160 mmHg 04/06/19 14:30 05/06/19 14:29 04/07/19 20:57 Insulin Aspart (NovoLOG) BEFORE MEALS AND HS SUBQ 04/05/19 06:30 05/04/19 11:29 Metoclopramide HCl (Reglan) 10 mg Q6H PRN IVP Nausea & Vomiting 04/04/19 23:28 05/04/19 23:27 Morphine Sulfate (Morphine Sulfate) 1 mg Q4H PRN IVP pain scale 1-3 04/04/19 23:28 04/11/19 23:27 Morphine Sulfate (Morphine Sulfate) 2 mg Q4H PRN IVP pain scale 4-6 04/04/19 23:28 04/11/19 23:27 Morphine Sulfate (Morphine Sulfate) 4 mg Q4H PRN IVP pain score 7-10 04/04/19 23:29 04/11/19 23:28 Ondansetron HCl (Zofran) 4 mg Q6H PRN IVP Nausea & Vomiting FIRST CHOICE 04/04/19 23:29 05/04/19 23:28 Piperacillin Sod/ Tazobactam Sod 3.375 gm/Sodium Chloride 110 ml @ 27.5 mls/hr EVERY 12 HOURS IVPB 04/06/19 10:00 04/11/19 09:59 04/08/19 08:22 Dony Eli MD Apr 08, 2019 10:59
--- NOTE | 2019-04-08 11:33 | Infectious Diseases Prog Note ---
Assessment/Plan Assessment/Plan A: 83 yo female with PMHx of DM, HTN and Asthma who presented to the ED on 03/27/19 with 4 days of abdominal pain. doubt Pneum clinically XR: Right basilar opacity, likely pleural fluid, possibly within the major fissure. Component of infiltrate also possible Leukocytosis ( post Op) improving Probable cholecystitis (? fistula) Transaminitis improving 04/03 Sp open cholecystectomy with excision of cholecystoduodenal fistula MRI : 04/02 very large gallstones, as described. Relationship of the gallstones to the duodenal lumen is not optimally demonstrated EGD: 04/01 Gastritis, status post biopsy. Possible stone stuck in the duodenal bulb from the gallbladder fistula CT abd 03/27/19 - Severe distention of the gallbladder, wall thickening, secondary to a large intraluminal gallstones. Cholecystitis is suspected. Correlate clinically. 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 There does appear to be some radiotracer filling the extremely distorted gallbladder, but this could be from the bowel connection, rather than the cystic duct. Leukocytosis -mild ( post EGD), Sp No Fever DM HTN HLD Asthma Arthritis PLAN - Continue Zosyn # 13 /14 - f/u Surgery recs - Monitor CBC and temps . Subjective Allergies: Coded Allergies: No Known Allergies (Unverified , 04/03/17) Subjective WBC improving Afebrile Objective Vital Signs Last 24 Hour Vital Signs Date Time Temp Pulse Resp B/P (MAP) Pulse Ox O2 Delivery O2 Flow Rate FiO2 04/08/19 09:19 84 04/08/19 09:00 83 152/59 04/08/19 08:59 99 Nasal Cannula 2.0 28 04/08/19 08:00 98.2 83 20 152/59 (90) 98 04/08/19 08:00 Nasal Cannula 2.0 04/08/19 04:00 98.6 77 22 147/57 (87) 100 04/08/19 04:00 Nasal Cannula 2.0 04/08/19 03:49 77 04/08/19 00:00 Nasal Cannula 2.0 04/08/19 00:00 98.2 97 22 148/58 (88) 99 04/07/19 23:34 92 04/07/19 20:57 162/82 04/07/19 20:00 98.1 83 24 162/82 (108) 99 04/07/19 20:00 Nasal Cannula 2.0 04/07/19 19:59 100 Nasal Cannula 2.0 28 04/07/19 19:47 83 04/07/19 16:00 Nasal Cannula 2.0 04/07/19 16:00 98.2 81 18 151/64 (93) 97 04/07/19 16:00 76 04/07/19 12:00 99.0 81 18 143/65 (91) 100 04/07/19 12:00 Nasal Cannula 2.0 04/07/19 12:00 80 Height (Feet): 4 Height (Inches): 5.00 Weight (Pounds): 92 HEENT: anicteric Respiratory/Chest: no respiratory distress Cardiovascular: normal peripheral pulses Abdomen: soft, non tender Microbiology Date/Time Source Procedure Growth Status 04/06/19 18:00 Indwelling Cath Urine Culture - Final NO GROWTH AFTER 48 HOURS Complete Laboratory Tests Test 04/08/19 04:10 White Blood Count 11.2 K/UL (4.8-10.8) H Red Blood Count 3.48 M/UL (4.20-5.40) L Hemoglobin 9.9 G/DL (12.0-16.0) L Hematocrit 30.6 % (37.0-47.0) L Mean Corpuscular Volume 88 FL (80-99) Mean Corpuscular Hemoglobin 28.5 PG (27.0-31.0) Mean Corpuscular Hemoglobin Concent 32.5 G/DL (32.0-36.0) Red Cell Distribution Width 13.9 % (11.6-14.8) Platelet Count 465 K/UL (150-450) H Mean Platelet Volume 4.6 FL (6.5-10.1) L Neutrophils (%) (Auto) 74.9 % (45.0-75.0) Lymphocytes (%) (Auto) 11.0 % (20.0-45.0) L Monocytes (%) (Auto) 10.8 % (1.0-10.0) H Eosinophils (%) (Auto) 2.6 % (0.0-3.0) Basophils (%) (Auto) 0.6 % (0.0-2.0) Sodium Level 135 MMOL/L (136-145) L Potassium Level 3.8 MMOL/L (3.5-5.1) Chloride Level 102 MMOL/L (98-107) Carbon Dioxide Level 29 MMOL/L (21-32) Anion Gap 4 mmol/L (5-15) L Blood Urea Nitrogen 4 mg/dL (7-18) L Creatinine 0.6 MG/DL (0.55-1.30) Estimat Glomerular Filtration Rate mL/min (>60) Glucose Level 153 MG/DL (74-106) H Calcium Level 9.4 MG/DL (8.5-10.1) Phosphorus Level 3.3 MG/DL (2.5-4.9) Magnesium Level 1.7 MG/DL (1.8-2.4) L Current Medications Medications (Trade) Dose Ordered Sig/Lora Route PRN Reason Start Time Stop Time Status Last Admin Dose Admin Acetaminophen (Tylenol) 650 mg Q4H PRN RECTAL FEVER 04/04/19 23:30 05/04/19 23:29 04/05/19 04:00 Albuterol/ Ipratropium (Albuterol/ Ipratropium) 3 ml Q4H PRN HHN Shortness of Breath 04/05/19 14:45 04/10/19 14:44 Amlodipine Besylate (Norvasc) 5 mg DAILY ORAL 04/05/19 09:00 05/04/19 08:59 Dextrose (Dextrose 50%) 25 ml Q30M PRN IV Hypoglycemia 04/04/19 23:30 05/04/19 07:29 Dextrose (Dextrose 50%) 50 ml Q30M PRN IV Hypoglycemia 04/04/19 23:30 05/04/19 07:29 Dextrose/ Electrolytes 1,000 ml @ 75 mls/hr [id number] IV 04/08/19 23:15 05/03/19 14:59 Diphenhydramine HCl (Benadryl) 12.5 mg Q6H PRN IVP Itching/Pruritis 04/04/19 23:30 05/04/19 23:29 Heparin Sodium (Porcine) (Heparin 5000 units/ml) 5,000 units EVERY 12 HOURS SUBQ 04/05/19 09:00 04/26/19 20:59 04/08/19 08:24 Hydralazine HCl (Apresoline) 10 mg Q6H PRN IV SBP>160 mmHg 04/06/19 14:30 05/06/19 14:29 04/07/19 20:57 Insulin Aspart (NovoLOG) BEFORE MEALS AND HS SUBQ 04/05/19 06:30 05/04/19 11:29 Metoclopramide HCl (Reglan) 10 mg Q6H PRN IVP Nausea & Vomiting 04/04/19 23:28 05/04/19 23:27 Morphine Sulfate (Morphine Sulfate) 1 mg Q4H PRN IVP pain scale 1-3 04/04/19 23:28 04/11/19 23:27 Morphine Sulfate (Morphine Sulfate) 2 mg Q4H PRN IVP pain scale 4-6 04/04/19 23:28 04/11/19 23:27 Morphine Sulfate (Morphine Sulfate) 4 mg Q4H PRN IVP pain score 7-10 04/04/19 23:29 04/11/19 23:28 Ondansetron HCl (Zofran) 4 mg Q6H PRN IVP Nausea & Vomiting FIRST CHOICE 04/04/19 23:29 05/04/19 23:28 Piperacillin Sod/ Tazobactam Sod 3.375 gm/Sodium Chloride 110 ml @ 27.5 mls/hr EVERY 12 HOURS IVPB 04/06/19 10:00 04/11/19 09:59 04/08/19 08:22 Maksim Davis MD Apr 08, 2019 11:33
--- NOTE | 2019-04-08 12:40 | GI Progress Note ---
Assessment/Plan Problems: (1) duodeno-cholecytic fistula (2) Diabetes mellitus ICD Codes: E11.9 - Type 2 diabetes mellitus without complications SNOMED: 62792361 (3) Failure to thrive in adult ICD Codes: R62.7 - Adult failure to thrive SNOMED: 688437283 (4) Elevated liver enzymes ICD Codes: R74.8 - Abnormal levels of other serum enzymes SNOMED: 875055437 (5) Hepatitis ICD Codes: K75.9 - Inflammatory liver disease, unspecified SNOMED: 813972443 (6) Diverticulitis ICD Codes: K57.92 - Diverticulitis of intestine, part unspecified, without perforation or abscess without bleeding SNOMED: 695693119 (7) Cholelithiases ICD Codes: K80.20 - Calculus of gallbladder without cholecystitis without obstruction SNOMED: 935595494 (8) Cholecystitis ICD Codes: K81.9 - Cholecystitis, unspecified SNOMED: 82727546 Status: progressing, unchanged Status Narrative Discussed with Dr. Friedman. Assessment/Plan Assessment - diverticulitis - abnormal GB with duodenal fistula - ? cholecystitis, ? GB cancer - Anemia - abnormal LFT s/p EGD SUMMARY OF FINDINGS: 1. Hiatal hernia. 2. Gastritis, status post biopsy. 3. Possible stone stuck in the duodenal bulb from the gallbladder fistula. RECOMMENDATIONS: s/p surg, follow up recs npo + ivf iv abx fu labs The patient was seen and examined at bedside and all new and available data was reviewed in the patients chart. I agree with the above findings, impression and plan. (Patient seen earlier today. Signature stamp does not reflect patient encounter time.). - Panda Friedman MD Subjective Subjective limited Objective Last 24 Hour Vital Signs Date Time Temp Pulse Resp B/P (MAP) Pulse Ox O2 Delivery O2 Flow Rate FiO2 04/08/19 12:00 Nasal Cannula 2.0 04/08/19 12:00 99.1 90 18 151/54 (86) 99 04/08/19 09:19 84 04/08/19 09:00 83 152/59 04/08/19 08:59 99 Nasal Cannula 2.0 28 04/08/19 08:00 98.2 83 20 152/59 (90) 98 04/08/19 08:00 Nasal Cannula 2.0 04/08/19 04:00 98.6 77 22 147/57 (87) 100 04/08/19 04:00 Nasal Cannula 2.0 04/08/19 03:49 77 04/08/19 00:00 Nasal Cannula 2.0 04/08/19 00:00 98.2 97 22 148/58 (88) 99 04/07/19 23:34 92 04/07/19 20:57 162/82 04/07/19 20:00 98.1 83 24 162/82 (108) 99 04/07/19 20:00 Nasal Cannula 2.0 04/07/19 19:59 100 Nasal Cannula 2.0 28 04/07/19 19:47 83 04/07/19 16:00 Nasal Cannula 2.0 04/07/19 16:00 98.2 81 18 151/64 (93) 97 04/07/19 16:00 76 Intake and Output 04/07/19 04/08/19 19:00 07:00 Intake Total 1250.0 ml 1210.0 ml Output Total 20 ml Balance 1230.0 ml 1210.0 ml IV Total 1250.0 ml 1210.0 ml Drainage Total 20 ml # Voids 4 Laboratory Tests Test 04/08/19 04:10 White Blood Count 11.2 K/UL (4.8-10.8) H Red Blood Count 3.48 M/UL (4.20-5.40) L Hemoglobin 9.9 G/DL (12.0-16.0) L Hematocrit 30.6 % (37.0-47.0) L Mean Corpuscular Volume 88 FL (80-99) Mean Corpuscular Hemoglobin 28.5 PG (27.0-31.0) Mean Corpuscular Hemoglobin Concent 32.5 G/DL (32.0-36.0) Red Cell Distribution Width 13.9 % (11.6-14.8) Platelet Count 465 K/UL (150-450) H Mean Platelet Volume 4.6 FL (6.5-10.1) L Neutrophils (%) (Auto) 74.9 % (45.0-75.0) Lymphocytes (%) (Auto) 11.0 % (20.0-45.0) L Monocytes (%) (Auto) 10.8 % (1.0-10.0) H Eosinophils (%) (Auto) 2.6 % (0.0-3.0) Basophils (%) (Auto) 0.6 % (0.0-2.0) Sodium Level 135 MMOL/L (136-145) L Potassium Level 3.8 MMOL/L (3.5-5.1) Chloride Level 102 MMOL/L (98-107) Carbon Dioxide Level 29 MMOL/L (21-32) Anion Gap 4 mmol/L (5-15) L Blood Urea Nitrogen 4 mg/dL (7-18) L Creatinine 0.6 MG/DL (0.55-1.30) Estimat Glomerular Filtration Rate mL/min (>60) Glucose Level 153 MG/DL (74-106) H Calcium Level 9.4 MG/DL (8.5-10.1) Phosphorus Level 3.3 MG/DL (2.5-4.9) Magnesium Level 1.7 MG/DL (1.8-2.4) L Height (Feet): 4 Height (Inches): 5.00 Weight (Pounds): 92 General Appearance: no apparent distress Cardiovascular: normal rate Respiratory/Chest: normal breath sounds, no respiratory distress Abdominal Exam: normal bowel sounds, non tender, soft Extremities: non-tender David Vieira NP Apr 08, 2019 12:40
--- NOTE | 2019-04-08 14:41 | NUR ---
RD ASSESSMENT & RECOMMENDATIONS SEE CARE ACTIVITY FOR COMPLETE ASSESSMENT DAILY ESTIMATED NEEDS: Needs based on DM, surgery/ 41kg 25-35 kcals/kg 8855-2444 total kcals 1-2 g protein/kg 41-82 g total protein 25-30 mL/kg 0720-2517 total fluid mLs NUTRITION DIAGNOSIS: Altered GI function R/T suspected cholecystitis, abnormal GB with duodenal fistula as evidenced by pt admitted w/ c/o abdominal pain, s/p open brennen, currently strict NPO. CURRENT DIET:NPO PO DIET RECOMMENDATIONS: Advance diet per MD ADDITIONAL RECOMMENDATIONS: * Calibrated bedscale wt for accurate CBW * Strict NPO/ monitor when medically ready to initiate diet If on clears, rec Enusre Clear TID w/ meals DAVID BID for surgial wound healing * CONSIDER TPN IF UNABLE TO START ORAL DIET IN THE NEXT 2-3 DAYS .
--- NOTE | 2019-04-08 16:04 | NUR ---
NURSE NOTES: pt resting, vital signs stable, no co pain, Mag level 1.7, 2gm of Mag sulfate given as ordered, continue monitoring.
--- NOTE | 2019-04-08 17:18 | Internal Med Progress Note ---
Subjective Date of Service: Apr 08, 2019 Physician Name Isaías Atwood Attending Physician Logan Camargo MD Current Medications Medications (Trade) Dose Ordered Sig/Lora Route PRN Reason Start Time Stop Time Status Last Admin Dose Admin Acetaminophen (Tylenol) 650 mg Q4H PRN RECTAL FEVER 04/04/19 23:30 05/04/19 23:29 04/05/19 04:00 Albuterol/ Ipratropium (Albuterol/ Ipratropium) 3 ml Q4H PRN HHN Shortness of Breath 04/05/19 14:45 04/10/19 14:44 Amlodipine Besylate (Norvasc) 5 mg DAILY ORAL 04/05/19 09:00 05/04/19 08:59 Dextrose (Dextrose 50%) 25 ml Q30M PRN IV Hypoglycemia 04/04/19 23:30 05/04/19 07:29 Dextrose (Dextrose 50%) 50 ml Q30M PRN IV Hypoglycemia 04/04/19 23:30 05/04/19 07:29 Dextrose/ Electrolytes 1,000 ml @ 75 mls/hr [id number] IV 04/08/19 23:15 05/03/19 14:59 04/08/19 12:31 Diphenhydramine HCl (Benadryl) 12.5 mg Q6H PRN IVP Itching/Pruritis 04/04/19 23:30 05/04/19 23:29 Heparin Sodium (Porcine) (Heparin 5000 units/ml) 5,000 units EVERY 12 HOURS SUBQ 04/05/19 09:00 04/26/19 20:59 04/08/19 08:24 Hydralazine HCl (Apresoline) 10 mg Q6H PRN IV SBP>160 mmHg 04/06/19 14:30 05/06/19 14:29 04/07/19 20:57 Insulin Aspart (NovoLOG) BEFORE MEALS AND HS SUBQ 04/05/19 06:30 05/04/19 11:29 Metoclopramide HCl (Reglan) 10 mg Q6H PRN IVP Nausea & Vomiting 04/04/19 23:28 05/04/19 23:27 Morphine Sulfate (Morphine Sulfate) 1 mg Q4H PRN IVP pain scale 1-3 04/04/19 23:28 04/11/19 23:27 Morphine Sulfate (Morphine Sulfate) 2 mg Q4H PRN IVP pain scale 4-6 04/04/19 23:28 04/11/19 23:27 Morphine Sulfate (Morphine Sulfate) 4 mg Q4H PRN IVP pain score 7-10 04/04/19 23:29 04/11/19 23:28 Ondansetron HCl (Zofran) 4 mg Q6H PRN IVP Nausea & Vomiting FIRST CHOICE 04/04/19 23:29 05/04/19 23:28 Piperacillin Sod/ Tazobactam Sod 3.375 gm/Sodium Chloride 110 ml @ 27.5 mls/hr EVERY 12 HOURS IVPB 04/06/19 10:00 04/11/19 09:59 04/08/19 08:22 Allergies: Coded Allergies: No Known Allergies (Unverified , 04/03/17) ROS Limited/Unobtainable: No Constitutional: Reports: no symptoms HEENT: Reports: no symptoms Cardiovascular: Reports: no symptoms Respiratory: Reports: no symptoms Gastrointestinal/Abdominal: Reports: abdominal pain Genitourinary: Reports: no symptoms Neurologic/Psychiatric: Reports: no symptoms Subjective 83 YO F admitted with right upper quadrant pain. Now acute cholecystitis and cholelithiasis. Cover for Int Med-Dr Camargo. 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 DOUG. Objective Last Vital Signs Date Time Temp Pulse Resp B/P (MAP) Pulse Ox O2 Delivery O2 Flow Rate FiO2 04/08/19 16:01 Nasal Cannula 2.0 04/08/19 16:00 87 04/08/19 15:59 98.1 20 154/65 (94) 100 04/08/19 08:59 28 Laboratory Tests Test 04/08/19 04:10 White Blood Count 11.2 K/UL (4.8-10.8) H Red Blood Count 3.48 M/UL (4.20-5.40) L Hemoglobin 9.9 G/DL (12.0-16.0) L Hematocrit 30.6 % (37.0-47.0) L Mean Corpuscular Volume 88 FL (80-99) Mean Corpuscular Hemoglobin 28.5 PG (27.0-31.0) Mean Corpuscular Hemoglobin Concent 32.5 G/DL (32.0-36.0) Red Cell Distribution Width 13.9 % (11.6-14.8) Platelet Count 465 K/UL (150-450) H Mean Platelet Volume 4.6 FL (6.5-10.1) L Neutrophils (%) (Auto) 74.9 % (45.0-75.0) Lymphocytes (%) (Auto) 11.0 % (20.0-45.0) L Monocytes (%) (Auto) 10.8 % (1.0-10.0) H Eosinophils (%) (Auto) 2.6 % (0.0-3.0) Basophils (%) (Auto) 0.6 % (0.0-2.0) Sodium Level 135 MMOL/L (136-145) L Potassium Level 3.8 MMOL/L (3.5-5.1) Chloride Level 102 MMOL/L (98-107) Carbon Dioxide Level 29 MMOL/L (21-32) Anion Gap 4 mmol/L (5-15) L Blood Urea Nitrogen 4 mg/dL (7-18) L Creatinine 0.6 MG/DL (0.55-1.30) Estimat Glomerular Filtration Rate mL/min (>60) Glucose Level 153 MG/DL (74-106) H Calcium Level 9.4 MG/DL (8.5-10.1) Phosphorus Level 3.3 MG/DL (2.5-4.9) Magnesium Level 1.7 MG/DL (1.8-2.4) L Microbiology Date/Time Source Procedure Growth Status 04/06/19 18:00 Indwelling Cath Urine Culture - Final NO GROWTH AFTER 48 HOURS Complete Intake and Output 04/07/19 04/08/19 19:00 07:00 Intake Total 1250.0 ml 1210.0 ml Output Total 20 ml Balance 1230.0 ml 1210.0 ml IV Total 1250.0 ml 1210.0 ml Drainage Total 20 ml # Voids 4 Objective PHYSICAL EXAMINATION: GENERAL: The patient is a well-developed and well-nourished female, in no apparent distress. HEENT: Eyes, pupils are equal and responsive to light and accommodation. Extraocular movements are intact. NECK: Supple without lymphadenopathy. CHEST: Lungs are clear to auscultation bilaterally without wheezes or rales. CARDIOVASCULAR: Regular rhythm and rate. S1, S2 normal without murmurs, rubs, or gallops. ABDOMEN: Soft, nondistended with decreased bowel sounds. There is pain to palpation to right upper quadrant. No evidence of rebound or guarding noted. EXTREMITIES: Negative for clubbing, cyanosis, or edema. RECTAL/GENITAL: Not performed. NEUROLOGIC: Cranial nerves II through XII are grossly intact without focal deficits. Motor strength is 5/5 bilaterally. Deep tendon reflexes are 2+ plantar. Assessment/Plan Assessment/Plan ASSESSMENT: This is an 83-year-old female with: 1. Right upper quadrant pain. 2. Acute cholecystitis. 3. Cholelithiasis. 4. Elevated liver function tests. 5. Diverticulitis. 6. Diabetes type 2. 7. Hypertension. 8. Hypercholesterolemia. 9. Asthma. 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 Occult pos stool 12. Leukocytosis TREATMENT: 1. Right upper quadrant pain/diverticulitis. A Gastroenterology consultation has been obtained with Dr. Panda Friedman. 2. Acute cholecystitis/cholelithiasis. 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 S/P endoscopy 04/01/19= large stone in duodenem and tricia-duodenal fistula A General Surgery consultation has been obtained with Dr. Perez. The patient has been started empirically on intravenous ciprofloxacin and metronidazole. Surgery date is pending 3. Elevated liver function tests. Improving. As above, a Gastroenterology consultation has been obtained with Dr. Pnada Friedman. Possible colonoscopy and endoscopy for occult blood source 4. Diabetes type 2. The patient has been placed on NovoLog sliding scale. 5. Hypertension. The patient is currently hypotensive. Hold amlodipine above. 6. Hypercholesterolemia. Continue simvastatin 20 mg p.o. daily. 7. Asthma. 8. 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 NPO 10. ABX=zosyn per ID= Isaías Winchester MD Apr 08, 2019 17:18
--- NOTE | 2019-04-08 19:08 | NUR ---
HAND-OFF: Report given to NIXON PLUNKETT.
--- NOTE | 2019-04-08 19:10 | NUR ---
NURSE NOTES: Received bedside report from DIMITRIOS Muniz.Patient stable,no c/o pain,no respiratory distress noted,A&Ox 4,Italian speaking,tolerated 2L/min via N/C,pt NPO,no meds,only IV meds as needed,BS active in all quadrants,IV on R f/arm G 22 running with D 5 NSw/20 KCl @ 75ml/hr,intact asymptomatic.Bed secured in a low safety position,call light within a reach,will continue to monitor and follow POC.
[2019-04-09] MEDS: Morphine Sulfate 2mg/ml Inj(IV/IM USE ONLY) IVP PRN ×2 (00:39→10:16)
[2019-04-09] MEDS: D5 1/2NS w/KCl 20mEq 1,000 ML IV SCH ×2 (01:18→14:58)
[2019-04-09 04:00] VITALS: BP 155/61
[2019-04-09 05:21] LABS: BASOPHILS % (AUTO) 0.9 % (0.0-2.0); EOSINOPHILS % (AUTO) 4.3 % (0.0-3.0); HEMATOCRIT 28.4 % (37.0-47.0); HEMOGLOBIN 9.4 G/DL (12.0-16.0); LYMPHOCYTES % (AUTO) 9.8 % (20.0-45.0); MEAN CORPUSCULAR VOLUME 88 FL (80-99); MONOCYTES % (AUTO) 9.8 % (1.0-10.0); NEUTROPHILS % (AUTO) 75.2 % (45.0-75.0); PLATELET COUNT 455 K/UL (150-450); RED BLOOD COUNT 3.23 M/UL (4.20-5.40); RED CELL DISTRIBUTION WIDTH 13.4 % (11.6-14.8); WHITE BLOOD COUNT 10.7 K/UL (4.8-10.8)
[2019-04-09 05:56] LABS: ALANINE AMINOTRANSFERASE 28 U/L (12-78); ALBUMIN 1.9 G/DL (3.4-5.0); ALBUMIN/GLOBULIN RATIO 0.4 (1.0-2.7); ALKALINE PHOSPHATASE 138 U/L (46-116); ANION GAP 6 mmol/L (5-15); ASPARTATE AMINO TRANSFERASE 15 U/L (15-37); BILIRUBIN,TOTAL 0.3 MG/DL (0.2-1.0); BLOOD UREA NITROGEN 4 mg/dL (7-18); CALCIUM 9.2 MG/DL (8.5-10.1); CARBON DIOXIDE 29 MMOL/L (21-32); CHLORIDE 100 MMOL/L (98-107); CREATININE 0.6 MG/DL (0.55-1.30); POTASSIUM 3.9 MMOL/L (3.5-5.1); SODIUM 135 MMOL/L (136-145)
[2019-04-09 05:58] LABS: PHOSPHORUS 3.8 MG/DL (2.5-4.9)
[2019-04-09] MEDS: NovoLOG Insulin Flexpen SUBQ SCH ×4 (06:30→21:00)
--- NOTE | 2019-04-09 07:31 | NUR ---
HAND-OFF: Report given to DIMITRIOS Muniz.Patient stable.
[2019-04-09 08:00] VITALS: BP 108/75
--- NOTE | 2019-04-09 08:33 | NUR ---
NURSE NOTES: received pt in the bed, awake, alert, oriented, vital signs stable, no co pain, no SOB, skin warm and dry to touch,surgical wound on abdomen with staplers, SAMMY with serosanguineous drainage, NPO, yellow clear urine, bed in low position, call light within reach.
[2019-04-09] MEDS: Piperacillin/Tazobactam 3.375 GM in NS 110 ML IVPB SCH (08:51)
[2019-04-09] MEDS: Heparin 5000 units/ml inj SUBQ SCH ×2 (08:52→22:40)
--- NOTE | 2019-04-09 10:14 | GI Progress Note ---
Assessment/Plan Problems: (1) duodeno-cholecytic fistula (2) Diabetes mellitus ICD Codes: E11.9 - Type 2 diabetes mellitus without complications SNOMED: 91592457 (3) Failure to thrive in adult ICD Codes: R62.7 - Adult failure to thrive SNOMED: 148157899 (4) Elevated liver enzymes ICD Codes: R74.8 - Abnormal levels of other serum enzymes SNOMED: 988497200 (5) Hepatitis ICD Codes: K75.9 - Inflammatory liver disease, unspecified SNOMED: 646737585 (6) Diverticulitis ICD Codes: K57.92 - Diverticulitis of intestine, part unspecified, without perforation or abscess without bleeding SNOMED: 977439783 (7) Cholelithiases ICD Codes: K80.20 - Calculus of gallbladder without cholecystitis without obstruction SNOMED: 749786424 (8) Cholecystitis ICD Codes: K81.9 - Cholecystitis, unspecified SNOMED: 26394372 Status: stable Status Narrative Discussed with Dr. Friedman. Assessment/Plan Assessment - diverticulitis - abnormal GB with duodenal fistula - ? cholecystitis, ? GB cancer - Anemia - abnormal LFT s/p EGD SUMMARY OF FINDINGS: 1. Hiatal hernia. 2. Gastritis, status post biopsy. 3. Possible stone stuck in the duodenal bulb from the gallbladder fistula. RECOMMENDATIONS: s/p surg, follow up recs npo + ivf iv abx fu labs The patient was seen and examined at bedside and all new and available data was reviewed in the patients chart. I agree with the above findings, impression and plan. (Patient seen earlier today. Signature stamp does not reflect patient encounter time.). - Panda Friedman MD Subjective Subjective limited Objective Last 24 Hour Vital Signs Date Time Temp Pulse Resp B/P (MAP) Pulse Ox O2 Delivery O2 Flow Rate FiO2 04/09/19 08:56 79 108/75 04/09/19 08:00 Nasal Cannula 2.0 04/09/19 08:00 98.6 79 21 108/75 (86) 100 04/09/19 07:45 100 Nasal Cannula 2.0 28 04/09/19 07:45 73 18 100 Nasal Cannula 2.0 28 04/09/19 04:00 98.5 88 18 155/61 (92) 100 04/09/19 04:00 Nasal Cannula 2.0 04/09/19 03:25 80 04/09/19 00:00 Nasal Cannula 2.0 04/08/19 23:36 98.4 86 20 155/65 (95) 100 04/08/19 23:36 80 04/08/19 20:18 78 18 99 Nasal Cannula 2.0 28 04/08/19 20:04 99 Nasal Cannula 2.0 28 04/08/19 20:00 Nasal Cannula 2.0 04/08/19 20:00 98.5 100 20 158/78 (104) 100 04/08/19 19:29 96 04/08/19 16:01 Nasal Cannula 2.0 04/08/19 16:00 87 04/08/19 15:59 98.1 89 20 154/65 (94) 100 04/08/19 12:00 Nasal Cannula 2.0 04/08/19 12:00 99.1 90 18 151/54 (86) 99 04/08/19 12:00 85 Intake and Output 04/08/19 04/09/19 18:59 06:59 Intake Total 710.0 ml 912.50 ml Output Total 50 ml 30 ml Balance 660.0 ml 882.50 ml IV Total 710.0 ml 912.50 ml Drainage Total 50 ml 30 ml # Voids 5 Laboratory Tests Test 04/09/19 03:55 White Blood Count 10.7 K/UL (4.8-10.8) Red Blood Count 3.23 M/UL (4.20-5.40) L Hemoglobin 9.4 G/DL (12.0-16.0) L Hematocrit 28.4 % (37.0-47.0) L Mean Corpuscular Volume 88 FL (80-99) Mean Corpuscular Hemoglobin 29.3 PG (27.0-31.0) Mean Corpuscular Hemoglobin Concent 33.3 G/DL (32.0-36.0) Red Cell Distribution Width 13.4 % (11.6-14.8) Platelet Count 455 K/UL (150-450) H Mean Platelet Volume 4.7 FL (6.5-10.1) L Neutrophils (%) (Auto) 75.2 % (45.0-75.0) H Lymphocytes (%) (Auto) 9.8 % (20.0-45.0) L Monocytes (%) (Auto) 9.8 % (1.0-10.0) Eosinophils (%) (Auto) 4.3 % (0.0-3.0) H Basophils (%) (Auto) 0.9 % (0.0-2.0) Erythrocyte Sedimentation Rate 104 MM/HR (0-30) H Sodium Level 135 MMOL/L (136-145) L Potassium Level 3.9 MMOL/L (3.5-5.1) Chloride Level 100 MMOL/L (98-107) Carbon Dioxide Level 29 MMOL/L (21-32) Anion Gap 6 mmol/L (5-15) Blood Urea Nitrogen 4 mg/dL (7-18) L Creatinine 0.6 MG/DL (0.55-1.30) Estimat Glomerular Filtration Rate mL/min (>60) Glucose Level 138 MG/DL (74-106) H Calcium Level 9.2 MG/DL (8.5-10.1) Phosphorus Level 3.8 MG/DL (2.5-4.9) Magnesium Level 2.2 MG/DL (1.8-2.4) Total Bilirubin 0.3 MG/DL (0.2-1.0) Aspartate Amino Transf (AST/SGOT) 15 U/L (15-37) Alanine Aminotransferase (ALT/SGPT) 28 U/L (12-78) Alkaline Phosphatase 138 U/L (46-116) H C-Reactive Protein, Quantitative 7.6 mg/dL (0.00-0.90) H Total Protein 6.2 G/DL (6.4-8.2) L Albumin 1.9 G/DL (3.4-5.0) L Globulin 4.3 g/dL Albumin/Globulin Ratio 0.4 (1.0-2.7) L Height (Feet): 4 Height (Inches): 5.00 Weight (Pounds): 110 General Appearance: no apparent distress, alert Cardiovascular: normal rate Respiratory/Chest: normal breath sounds, no respiratory distress Abdominal Exam: normal bowel sounds, non tender, soft Extremities: non-tender David Vieira VTC TECHNICIAN Apr 09, 2019 10:14
--- NOTE | 2019-04-09 10:38 | Pulmonology Progress Note ---
Assessment/Plan Problems: (1) duodeno-cholecytic fistula (2) Cholecystitis (3) Cholelithiases (4) Hepatitis (5) Failure to thrive in adult (6) Diabetes mellitus (7) Diverticulitis Assessment/Plan doing better still npo continue abx, wbc decreasing, normal now upper GI series, if no leak, po diet will be started soon on IV fluids Mg supplement check cultures f/u surgical recommendations sliding scale f/u GI recommendations Subjective ROS Limited/Unobtainable: No Interval Events: no complains Allergies: Coded Allergies: No Known Allergies (Unverified , 04/03/17) Objective Last 24 Hour Vital Signs Date Time Temp Pulse Resp B/P (MAP) Pulse Ox O2 Delivery O2 Flow Rate FiO2 04/09/19 08:56 79 108/75 04/09/19 08:00 Nasal Cannula 2.0 04/09/19 08:00 98.6 79 21 108/75 (86) 100 04/09/19 07:45 100 Nasal Cannula 2.0 28 04/09/19 07:45 73 18 100 Nasal Cannula 2.0 28 04/09/19 04:00 98.5 88 18 155/61 (92) 100 04/09/19 04:00 Nasal Cannula 2.0 04/09/19 03:25 80 04/09/19 00:00 Nasal Cannula 2.0 04/08/19 23:36 98.4 86 20 155/65 (95) 100 04/08/19 23:36 80 04/08/19 20:18 78 18 99 Nasal Cannula 2.0 28 04/08/19 20:04 99 Nasal Cannula 2.0 28 04/08/19 20:00 Nasal Cannula 2.0 04/08/19 20:00 98.5 100 20 158/78 (104) 100 04/08/19 19:29 96 04/08/19 16:01 Nasal Cannula 2.0 04/08/19 16:00 87 04/08/19 15:59 98.1 89 20 154/65 (94) 100 04/08/19 12:00 Nasal Cannula 2.0 04/08/19 12:00 99.1 90 18 151/54 (86) 99 04/08/19 12:00 85 Intake and Output 04/08/19 04/09/19 18:59 06:59 Intake Total 710.0 ml 912.50 ml Output Total 50 ml 30 ml Balance 660.0 ml 882.50 ml IV Total 710.0 ml 912.50 ml Drainage Total 50 ml 30 ml # Voids 5 Objective General Appearance: WD/WN HEENT: normocephalic, atraumatic Respiratory/Chest: chest wall non-tender, lungs clear Breasts: no masses Cardiovascular: normal peripheral pulses Abdomen: normal bowel sounds, soft, non tender Genitourinary: normal external genitalia Extremities: no clubbing Neurologic/Psychiatric: manufacturer II-XII grossly normal Lymphatic: no neck adenopathy Microbiology Date/Time Source Procedure Growth Status 04/06/19 18:00 Indwelling Cath Urine Culture - Final NO GROWTH AFTER 48 HOURS Complete Laboratory Tests 04/09/19 03:55: White Blood Count 10.7, Red Blood Count 3.23L, Hemoglobin 9.4L, Hematocrit 28.4L , Mean Corpuscular Volume 88, Mean Corpuscular Hemoglobin 29.3, Mean Corpuscular Hemoglobin Concent 33.3, Red Cell Distribution Width 13.4, Platelet Count 455H, Mean Platelet Volume 4.7L, Neutrophils (%) (Auto) 75.2H, Lymphocytes (%) (Auto) 9.8L, Monocytes (%) (Auto) 9.8, Eosinophils (%) (Auto) 4.3H, Basophils (%) (Auto) 0.9, Erythrocyte Sedimentation Rate 104H, Sodium Level 135L, Potassium Level 3.9, Chloride Level 100, Carbon Dioxide Level 29, Anion Gap 6, Blood Urea Nitrogen 4L, Creatinine 0.6, Estimat Glomerular Filtration Rate , Glucose Level 138H, Calcium Level 9.2, Phosphorus Level 3.8, Magnesium Level 2.2, Total Bilirubin 0.3, Aspartate Amino Transf (AST/SGOT) 15, Alanine Aminotransferase (ALT/SGPT) 28, Alkaline Phosphatase 138H, C-Reactive Protein, Quantitative 7.6H, Total Protein 6.2L, Albumin 1.9L, Globulin 4.3, Albumin/Globulin Ratio 0.4L Current Medications Medications (Trade) Dose Ordered Sig/Lora Route PRN Reason Start Time Stop Time Status Last Admin Dose Admin Acetaminophen (Tylenol) 650 mg Q4H PRN RECTAL FEVER 04/04/19 23:30 05/04/19 23:29 04/05/19 04:00 Albuterol/ Ipratropium (Albuterol/ Ipratropium) 3 ml Q4H PRN HHN Shortness of Breath 04/05/19 14:45 04/10/19 14:44 Amlodipine Besylate (Norvasc) 5 mg DAILY ORAL 04/05/19 09:00 05/04/19 08:59 Dextrose (Dextrose 50%) 25 ml Q30M PRN IV Hypoglycemia 04/04/19 23:30 05/04/19 07:29 Dextrose (Dextrose 50%) 50 ml Q30M PRN IV Hypoglycemia 04/04/19 23:30 05/04/19 07:29 Dextrose/ Electrolytes 1,000 ml @ 75 mls/hr [id number] IV 04/08/19 23:15 05/03/19 14:59 04/09/19 01:18 Diphenhydramine HCl (Benadryl) 12.5 mg Q6H PRN IVP Itching/Pruritis 04/04/19 23:30 05/04/19 23:29 Heparin Sodium (Porcine) (Heparin 5000 units/ml) 5,000 units EVERY 12 HOURS SUBQ 04/05/19 09:00 04/26/19 20:59 04/09/19 08:52 Hydralazine HCl (Apresoline) 10 mg Q6H PRN IV SBP>160 mmHg 04/06/19 14:30 05/06/19 14:29 04/07/19 20:57 Insulin Aspart (NovoLOG) BEFORE MEALS AND HS SUBQ 04/05/19 06:30 05/04/19 11:29 Metoclopramide HCl (Reglan) 10 mg Q6H PRN IVP Nausea & Vomiting 04/04/19 23:28 05/04/19 23:27 Morphine Sulfate (Morphine Sulfate) 1 mg Q4H PRN IVP pain scale 1-3 04/04/19 23:28 04/11/19 23:27 Morphine Sulfate (Morphine Sulfate) 2 mg Q4H PRN IVP pain scale 4-6 04/04/19 23:28 04/11/19 23:27 04/09/19 10:16 Morphine Sulfate (Morphine Sulfate) 4 mg Q4H PRN IVP pain score 7-10 04/04/19 23:29 04/11/19 23:28 Ondansetron HCl (Zofran) 4 mg Q6H PRN IVP Nausea & Vomiting FIRST CHOICE 04/04/19 23:29 05/04/19 23:28 Piperacillin Sod/ Tazobactam Sod 3.375 gm/Sodium Chloride 110 ml @ 27.5 mls/hr EVERY 12 HOURS IVPB 04/06/19 10:00 04/11/19 09:59 04/09/19 08:51 Dony Eli MD Apr 09, 2019 10:38
--- NOTE | 2019-04-09 11:18 | NUR ---
CASE MANAGEMENT:REVIEW 04/09/19 SI: POD #6 OPEN CHOLECYSTECTOMY W/EXCISION OF CHOLECYSTODUODENAL FISTULA PARTIAL OMENTECTOMY. DRAIN PLACEMENT 98.6 79 21 108/75 100% ON 2L/NC IS: IV ZOSYN Q12 IVF@75/HR NORVASC PO QD HEPARIN SQ Q12 IVF@100/HR IV MORPHINE Q4HRS PRN : NOW ON STEP DOWN UNIT DCP: PATIENT IS FROM HOME PLAN: NPO DRAIN CONTINUE ABX
[2019-04-09 12:00] VITALS: BP 160/75
--- NOTE | 2019-04-09 12:00 | NUR ---
NURSE NOTES: pt resting, no BM, Vieira N.P. aware, still NPO, no co pain, continue monitoring.
--- NOTE | 2019-04-09 13:10 | NUR ---
NURSE NOTES: received report from DIMITRIOS Daniels. patient transferred from [facility] under Dr. Raman butler. alert. oriented. verbally responsive. no respiratory distress noted. no pain at this time. s/p laparoscopic vs open chlecystectomy with possible bowel resection. SAMMY on rt flank draining. iv on R wrist intact running fluid D5NS [id number]@75/hr. skin intact. strict NPO. no medication. checked and counted belongings with patient and DIMITRIOS Daniels. bed in the lowest position and locked. call light within reach. alarm on. will continue to provide plan of care
--- NOTE | 2019-04-09 13:43 | NUR ---
NURSE NOTES: pt transferred to 4E as ordered, condition stable, report given to Alvarado PLUNKETT.
[2019-04-09] MEDS ORDERED: Acetaminophen 650 MG SUPP RECTAL PRN (13:44)
[2019-04-09] MEDS ORDERED: DiphenhydrAMINE 50mg/ml Inj IVP PRN (13:44)
[2019-04-09] MEDS ORDERED: Metoclopramide 10mg/2ml Inj IVP PRN (13:45)
[2019-04-09] MEDS ORDERED: Morphine Sulfate 2mg/ml Inj(IV/IM USE ONLY) IVP PRN ×2 (13:45)
[2019-04-09] MEDS ORDERED: Morphine Sulfate 4mg/ml Inj (IV USE ONLY) IVP PRN (13:45)
[2019-04-09] MEDS ORDERED: Albuterol/Ipratropium 3ml neb HHN PRN (13:45)
[2019-04-09 16:00] VITALS: BP 137/56
--- NOTE | 2019-04-09 17:33 | Infectious Diseases Prog Note ---
Assessment/Plan Assessment/Plan A: 83 yo female with PMHx of DM, HTN and Asthma who presented to the ED on 03/27/19 with 4 days of abdominal pain. doubt Pneum clinically XR: Right basilar opacity, likely pleural fluid, possibly within the major fissure. Component of infiltrate also possible Leukocytosis ( post Op) Sp Probable cholecystitis (? fistula) Transaminitis improving 04/03 Sp open cholecystectomy with excision of cholecystoduodenal fistula MRI : 04/02 very large gallstones, as described. Relationship of the gallstones to the duodenal lumen is not optimally demonstrated EGD: 04/01 Gastritis, status post biopsy. Possible stone stuck in the duodenal bulb from the gallbladder fistula CT abd 03/27/19 - Severe distention of the gallbladder, wall thickening, secondary to a large intraluminal gallstones. Cholecystitis is suspected. Correlate clinically. 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 There does appear to be some radiotracer filling the extremely distorted gallbladder, but this could be from the bowel connection, rather than the cystic duct. Leukocytosis -mild ( post EGD), Sp No Fever DM HTN HLD Asthma Arthritis PLAN - DC Zosyn # 14 and monitor pt off of AB Rx - f/u Surgery recs - Monitor CBC and temps . Subjective Allergies: Coded Allergies: No Known Allergies (Unverified , 04/03/17) Subjective comfortable Objective Vital Signs Last 24 Hour Vital Signs Date Time Temp Pulse Resp B/P (MAP) Pulse Ox O2 Delivery O2 Flow Rate FiO2 04/09/19 16:00 97.9 58 18 137/56 (83) 98 04/09/19 16:00 Nasal Cannula 2.0 04/09/19 12:34 160/75 04/09/19 12:00 98.7 79 20 160/75 (103) 100 04/09/19 12:00 70 04/09/19 12:00 Nasal Cannula 2.0 04/09/19 10:46 98.6 04/09/19 08:56 79 108/75 04/09/19 08:00 Nasal Cannula 2.0 04/09/19 08:00 71 04/09/19 08:00 98.6 79 21 108/75 (86) 100 04/09/19 07:45 100 Nasal Cannula 2.0 28 04/09/19 07:45 73 18 100 Nasal Cannula 2.0 28 04/09/19 04:00 98.5 88 18 155/61 (92) 100 04/09/19 04:00 Nasal Cannula 2.0 04/09/19 03:25 80 04/09/19 00:00 Nasal Cannula 2.0 04/08/19 23:36 98.4 86 20 155/65 (95) 100 04/08/19 23:36 80 04/08/19 20:18 78 18 99 Nasal Cannula 2.0 28 04/08/19 20:04 99 Nasal Cannula 2.0 28 04/08/19 20:00 Nasal Cannula 2.0 04/08/19 20:00 98.5 100 20 158/78 (104) 100 04/08/19 19:29 96 Height (Feet): 4 Height (Inches): 5.00 Weight (Pounds): 110 Respiratory/Chest: lungs clear Cardiovascular: regular rhythm Abdomen: no organomegaly Microbiology Date/Time Source Procedure Growth Status 04/06/19 18:00 Indwelling Cath Urine Culture - Final NO GROWTH AFTER 48 HOURS Complete Laboratory Tests Test 04/09/19 03:55 White Blood Count 10.7 K/UL (4.8-10.8) Red Blood Count 3.23 M/UL (4.20-5.40) L Hemoglobin 9.4 G/DL (12.0-16.0) L Hematocrit 28.4 % (37.0-47.0) L Mean Corpuscular Volume 88 FL (80-99) Mean Corpuscular Hemoglobin 29.3 PG (27.0-31.0) Mean Corpuscular Hemoglobin Concent 33.3 G/DL (32.0-36.0) Red Cell Distribution Width 13.4 % (11.6-14.8) Platelet Count 455 K/UL (150-450) H Mean Platelet Volume 4.7 FL (6.5-10.1) L Neutrophils (%) (Auto) 75.2 % (45.0-75.0) H Lymphocytes (%) (Auto) 9.8 % (20.0-45.0) L Monocytes (%) (Auto) 9.8 % (1.0-10.0) Eosinophils (%) (Auto) 4.3 % (0.0-3.0) H Basophils (%) (Auto) 0.9 % (0.0-2.0) Erythrocyte Sedimentation Rate 104 MM/HR (0-30) H Sodium Level 135 MMOL/L (136-145) L Potassium Level 3.9 MMOL/L (3.5-5.1) Chloride Level 100 MMOL/L (98-107) Carbon Dioxide Level 29 MMOL/L (21-32) Anion Gap 6 mmol/L (5-15) Blood Urea Nitrogen 4 mg/dL (7-18) L Creatinine 0.6 MG/DL (0.55-1.30) Estimat Glomerular Filtration Rate mL/min (>60) Glucose Level 138 MG/DL (74-106) H Calcium Level 9.2 MG/DL (8.5-10.1) Phosphorus Level 3.8 MG/DL (2.5-4.9) Magnesium Level 2.2 MG/DL (1.8-2.4) Total Bilirubin 0.3 MG/DL (0.2-1.0) Aspartate Amino Transf (AST/SGOT) 15 U/L (15-37) Alanine Aminotransferase (ALT/SGPT) 28 U/L (12-78) Alkaline Phosphatase 138 U/L (46-116) H C-Reactive Protein, Quantitative 7.6 mg/dL (0.00-0.90) H Total Protein 6.2 G/DL (6.4-8.2) L Albumin 1.9 G/DL (3.4-5.0) L Globulin 4.3 g/dL Albumin/Globulin Ratio 0.4 (1.0-2.7) L Current Medications Medications (Trade) Dose Ordered Sig/Lora Route PRN Reason Start Time Stop Time Status Last Admin Dose Admin Acetaminophen (Tylenol) 650 mg Q4H PRN RECTAL FEVER 04/09/19 13:44 05/09/19 13:43 Albuterol/ Ipratropium (Albuterol/ Ipratropium) 3 ml Q4H PRN HHN Shortness of Breath 04/09/19 13:45 04/14/19 13:44 Amlodipine Besylate (Norvasc) 5 mg DAILY ORAL 04/10/19 09:00 05/04/19 08:59 Dextrose (Dextrose 50%) 25 ml Q30M PRN IV Hypoglycemia 04/09/19 14:00 05/04/19 07:29 Dextrose (Dextrose 50%) 50 ml Q30M PRN IV Hypoglycemia 04/09/19 14:00 05/04/19 07:29 Dextrose/ Electrolytes 1,000 ml @ 75 mls/hr [id number] IV 04/09/19 13:44 05/09/19 13:43 04/09/19 14:58 Diphenhydramine HCl (Benadryl) 12.5 mg Q6H PRN IVP Itching/Pruritis 04/09/19 13:44 05/09/19 13:43 Heparin Sodium (Porcine) (Heparin 5000 units/ml) 5,000 units EVERY 12 HOURS SUBQ 04/09/19 21:00 04/26/19 20:59 Insulin Aspart (NovoLOG) BEFORE MEALS AND HS SUBQ 04/09/19 16:30 05/04/19 11:29 Metoclopramide HCl (Reglan) 10 mg Q6H PRN IVP Nausea & Vomiting 04/09/19 13:45 05/09/19 13:44 Morphine Sulfate (Morphine Sulfate) 1 mg Q4H PRN IVP pain scale 1-3 04/09/19 13:45 04/16/19 13:44 Morphine Sulfate (Morphine Sulfate) 2 mg Q4H PRN IVP pain scale 4-6 04/09/19 13:45 04/16/19 13:44 Morphine Sulfate (Morphine Sulfate) 4 mg Q4H PRN IVP pain score 7-10 04/09/19 13:45 04/16/19 13:44 Ondansetron HCl (Zofran) 4 mg Q6H PRN IVP Nausea & Vomiting FIRST CHOICE 04/09/19 13:46 05/09/19 13:45 Piperacillin Sod/ Tazobactam Sod 3.375 gm/Sodium Chloride 110 ml @ 27.5 mls/hr EVERY 12 HOURS IVPB 04/09/19 21:00 04/14/19 20:59 Maksim Davis MD Apr 09, 2019 17:33
--- NOTE | 2019-04-09 19:05 | Internal Med Progress Note ---
Subjective Date of Service: Apr 09, 2019 Physician Name Isaías Atwood Attending Physician Logan Camargo MD Current Medications Medications (Trade) Dose Ordered Sig/Lora Route PRN Reason Start Time Stop Time Status Last Admin Dose Admin Acetaminophen (Tylenol) 650 mg Q4H PRN RECTAL FEVER 04/09/19 13:44 05/09/19 13:43 Albuterol/ Ipratropium (Albuterol/ Ipratropium) 3 ml Q4H PRN HHN Shortness of Breath 04/09/19 13:45 04/14/19 13:44 Amlodipine Besylate (Norvasc) 5 mg DAILY ORAL 04/10/19 09:00 05/04/19 08:59 Dextrose (Dextrose 50%) 25 ml Q30M PRN IV Hypoglycemia 04/09/19 14:00 05/04/19 07:29 Dextrose (Dextrose 50%) 50 ml Q30M PRN IV Hypoglycemia 04/09/19 14:00 05/04/19 07:29 Dextrose/ Electrolytes 1,000 ml @ 75 mls/hr [id number] IV 04/09/19 13:44 05/09/19 13:43 04/09/19 14:58 Diphenhydramine HCl (Benadryl) 12.5 mg Q6H PRN IVP Itching/Pruritis 04/09/19 13:44 05/09/19 13:43 Heparin Sodium (Porcine) (Heparin 5000 units/ml) 5,000 units EVERY 12 HOURS SUBQ 04/09/19 21:00 04/26/19 20:59 Insulin Aspart (NovoLOG) BEFORE MEALS AND HS SUBQ 04/09/19 16:30 05/04/19 11:29 Metoclopramide HCl (Reglan) 10 mg Q6H PRN IVP Nausea & Vomiting 04/09/19 13:45 05/09/19 13:44 Morphine Sulfate (Morphine Sulfate) 1 mg Q4H PRN IVP pain scale 1-3 04/09/19 13:45 04/16/19 13:44 Morphine Sulfate (Morphine Sulfate) 2 mg Q4H PRN IVP pain scale 4-6 04/09/19 13:45 04/16/19 13:44 Morphine Sulfate (Morphine Sulfate) 4 mg Q4H PRN IVP pain score 7-10 04/09/19 13:45 04/16/19 13:44 Ondansetron HCl (Zofran) 4 mg Q6H PRN IVP Nausea & Vomiting FIRST CHOICE 04/09/19 13:46 05/09/19 13:45 Allergies: Coded Allergies: No Known Allergies (Unverified , 04/03/17) ROS Limited/Unobtainable: No Constitutional: Reports: no symptoms HEENT: Reports: no symptoms Cardiovascular: Reports: no symptoms Respiratory: Reports: no symptoms Gastrointestinal/Abdominal: Reports: no symptoms Genitourinary: Reports: no symptoms Neurologic/Psychiatric: Reports: no symptoms Subjective 83 YO F admitted with right upper quadrant pain. Now acute cholecystitis and cholelithiasis. Cover for Int Marcelo-Dr Camargo. 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 Objective Last Vital Signs Date Time Temp Pulse Resp B/P (MAP) Pulse Ox O2 Delivery O2 Flow Rate FiO2 04/09/19 16:00 97.9 58 18 137/56 (83) 98 04/09/19 16:00 Nasal Cannula 2.0 04/09/19 07:45 28 Laboratory Tests Test 04/09/19 03:55 White Blood Count 10.7 K/UL (4.8-10.8) Red Blood Count 3.23 M/UL (4.20-5.40) L Hemoglobin 9.4 G/DL (12.0-16.0) L Hematocrit 28.4 % (37.0-47.0) L Mean Corpuscular Volume 88 FL (80-99) Mean Corpuscular Hemoglobin 29.3 PG (27.0-31.0) Mean Corpuscular Hemoglobin Concent 33.3 G/DL (32.0-36.0) Red Cell Distribution Width 13.4 % (11.6-14.8) Platelet Count 455 K/UL (150-450) H Mean Platelet Volume 4.7 FL (6.5-10.1) L Neutrophils (%) (Auto) 75.2 % (45.0-75.0) H Lymphocytes (%) (Auto) 9.8 % (20.0-45.0) L Monocytes (%) (Auto) 9.8 % (1.0-10.0) Eosinophils (%) (Auto) 4.3 % (0.0-3.0) H Basophils (%) (Auto) 0.9 % (0.0-2.0) Erythrocyte Sedimentation Rate 104 MM/HR (0-30) H Sodium Level 135 MMOL/L (136-145) L Potassium Level 3.9 MMOL/L (3.5-5.1) Chloride Level 100 MMOL/L (98-107) Carbon Dioxide Level 29 MMOL/L (21-32) Anion Gap 6 mmol/L (5-15) Blood Urea Nitrogen 4 mg/dL (7-18) L Creatinine 0.6 MG/DL (0.55-1.30) Estimat Glomerular Filtration Rate mL/min (>60) Glucose Level 138 MG/DL (74-106) H Calcium Level 9.2 MG/DL (8.5-10.1) Phosphorus Level 3.8 MG/DL (2.5-4.9) Magnesium Level 2.2 MG/DL (1.8-2.4) Total Bilirubin 0.3 MG/DL (0.2-1.0) Aspartate Amino Transf (AST/SGOT) 15 U/L (15-37) Alanine Aminotransferase (ALT/SGPT) 28 U/L (12-78) Alkaline Phosphatase 138 U/L (46-116) H C-Reactive Protein, Quantitative 7.6 mg/dL (0.00-0.90) H Total Protein 6.2 G/DL (6.4-8.2) L Albumin 1.9 G/DL (3.4-5.0) L Globulin 4.3 g/dL Albumin/Globulin Ratio 0.4 (1.0-2.7) L Intake and Output 04/08/19 04/09/19 19:00 07:00 Intake Total 685.0 ml 912.50 ml Output Total 50 ml 30 ml Balance 635.0 ml 882.50 ml IV Total 685.0 ml 912.50 ml Drainage Total 50 ml 30 ml # Voids 5 Objective PHYSICAL EXAMINATION: GENERAL: The patient is a well-developed and well-nourished female, in no apparent distress. HEENT: Eyes, pupils are equal and responsive to light and accommodation. Extraocular movements are intact. NECK: Supple without lymphadenopathy. CHEST: Lungs are clear to auscultation bilaterally without wheezes or rales. CARDIOVASCULAR: Regular rhythm and rate. S1, S2 normal without murmurs, rubs, or gallops. ABDOMEN: Soft, nondistended with decreased bowel sounds. There is pain to palpation to right upper quadrant. No evidence of rebound or guarding noted. EXTREMITIES: Negative for clubbing, cyanosis, or edema. RECTAL/GENITAL: Not performed. NEUROLOGIC: Cranial nerves II through XII are grossly intact without focal deficits. Motor strength is 5/5 bilaterally. Deep tendon reflexes are 2+ plantar. Assessment/Plan Assessment/Plan ASSESSMENT: This is an 83-year-old female with: 1. Right upper quadrant pain. 2. Acute cholecystitis. 3. Cholelithiasis. 4. Elevated liver function tests. 5. Diverticulitis. 6. Diabetes type 2. 7. Hypertension. 8. Hypercholesterolemia. 9. Asthma. 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 Occult pos stool 12. Leukocytosis TREATMENT: 1. Right upper quadrant pain/diverticulitis. A Gastroenterology consultation has been obtained with Dr. Panda Friedman. 2. Acute cholecystitis/cholelithiasis. 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 S/P endoscopy 04/01/19= large stone in duodenem and tricia-duodenal fistula A General Surgery consultation has been obtained with Dr. Perez. The patient has been started empirically on intravenous ciprofloxacin and metronidazole. Surgery date is pending 3. Elevated liver function tests. Improving. As above, a Gastroenterology consultation has been obtained with Dr. Panda Friedman. Possible colonoscopy and endoscopy for occult blood source 4. Diabetes type 2. The patient has been placed on NovoLog sliding scale. 5. Hypertension. The patient is currently hypotensive. Hold amlodipine above. 6. Hypercholesterolemia. Continue simvastatin 20 mg p.o. daily. 7. Asthma. 8. 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 NPO 10. ABX=zosyn per ID= Isaías Winchester MD Apr 09, 2019 19:05
--- NOTE | 2019-04-09 19:31 | NUR ---
HAND-OFF: Report given to DIMITRIOS May.
--- NOTE | 2019-04-09 19:35 | NUR ---
NURSE NOTES: Received report from DIMITRIOS Childers. Patient alert, awake, and verbally responsive in Romansh to let her needs known. Breathing unlabored without distress, discomfort, or sob on 2L O2 via NC. Denies pain at this time. SAMMY drainage noted on the right flank. IV on the right wrist intact and running fluid as ordered. Strict NPO order noted. SCDs currently off due to patient request. Will attempt to encourage SCD placement during the shift. Bed placed at the lowest with alarm, brake, and siderail up for safety. Call light placed within reach. Will continue to monitor and provide care as ordered.
[2019-04-09 20:00] VITALS: BP 134/73
--- NOTE | 2019-04-09 20:05 | Surgery Progress Note ---
Surgery Progress Note Subjective Procedure Performed 1. diagnostic laparoscopic 2. 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 distal gastrectomy and closure of duodenal stump - B1 4. retrocolic anterior gastrojejunostomy 5. partial omentectomy 6. abdominal drain placement Symptoms: improved Objective Last 24 Hour Vital Signs Date Time Temp Pulse Resp B/P (MAP) Pulse Ox O2 Delivery O2 Flow Rate FiO2 04/09/19 16:00 97.9 58 18 137/56 (83) 98 04/09/19 16:00 Nasal Cannula 2.0 04/09/19 12:34 160/75 04/09/19 12:00 98.7 79 20 160/75 (103) 100 04/09/19 12:00 70 04/09/19 12:00 Nasal Cannula 2.0 04/09/19 10:46 98.6 04/09/19 08:56 79 108/75 04/09/19 08:00 Nasal Cannula 2.0 04/09/19 08:00 71 04/09/19 08:00 98.6 79 21 108/75 (86) 100 04/09/19 07:45 100 Nasal Cannula 2.0 28 04/09/19 07:45 73 18 100 Nasal Cannula 2.0 28 04/09/19 04:00 98.5 88 18 155/61 (92) 100 04/09/19 04:00 Nasal Cannula 2.0 04/09/19 03:25 80 04/09/19 00:00 Nasal Cannula 2.0 04/08/19 23:36 98.4 86 20 155/65 (95) 100 04/08/19 23:36 80 04/08/19 20:18 78 18 99 Nasal Cannula 2.0 28 I&O Intake and Output 04/08/19 04/09/19 19:00 07:00 Intake Total 685.0 ml 912.50 ml Output Total 50 ml 30 ml Balance 635.0 ml 882.50 ml IV Total 685.0 ml 912.50 ml Drainage Total 50 ml 30 ml # Voids 5 Wound: clean, dry Drains: other Cardiovascular: RSR Respiratory: clear Abdomen: soft, non-tender, present bowel sounds, decreased bowel sounds Extremities: no cyanosis Laboratory Tests Test 04/09/19 03:55 White Blood Count 10.7 K/UL (4.8-10.8) Red Blood Count 3.23 M/UL (4.20-5.40) L Hemoglobin 9.4 G/DL (12.0-16.0) L Hematocrit 28.4 % (37.0-47.0) L Mean Corpuscular Volume 88 FL (80-99) Mean Corpuscular Hemoglobin 29.3 PG (27.0-31.0) Mean Corpuscular Hemoglobin Concent 33.3 G/DL (32.0-36.0) Red Cell Distribution Width 13.4 % (11.6-14.8) Platelet Count 455 K/UL (150-450) H Mean Platelet Volume 4.7 FL (6.5-10.1) L Neutrophils (%) (Auto) 75.2 % (45.0-75.0) H Lymphocytes (%) (Auto) 9.8 % (20.0-45.0) L Monocytes (%) (Auto) 9.8 % (1.0-10.0) Eosinophils (%) (Auto) 4.3 % (0.0-3.0) H Basophils (%) (Auto) 0.9 % (0.0-2.0) Erythrocyte Sedimentation Rate 104 MM/HR (0-30) H Sodium Level 135 MMOL/L (136-145) L Potassium Level 3.9 MMOL/L (3.5-5.1) Chloride Level 100 MMOL/L (98-107) Carbon Dioxide Level 29 MMOL/L (21-32) Anion Gap 6 mmol/L (5-15) Blood Urea Nitrogen 4 mg/dL (7-18) L Creatinine 0.6 MG/DL (0.55-1.30) Estimat Glomerular Filtration Rate mL/min (>60) Glucose Level 138 MG/DL (74-106) H Calcium Level 9.2 MG/DL (8.5-10.1) Phosphorus Level 3.8 MG/DL (2.5-4.9) Magnesium Level 2.2 MG/DL (1.8-2.4) Total Bilirubin 0.3 MG/DL (0.2-1.0) Aspartate Amino Transf (AST/SGOT) 15 U/L (15-37) Alanine Aminotransferase (ALT/SGPT) 28 U/L (12-78) Alkaline Phosphatase 138 U/L (46-116) H C-Reactive Protein, Quantitative 7.6 mg/dL (0.00-0.90) H Total Protein 6.2 G/DL (6.4-8.2) L Albumin 1.9 G/DL (3.4-5.0) L Globulin 4.3 g/dL Albumin/Globulin Ratio 0.4 (1.0-2.7) L Assessment Post-op Diagnosis 1. 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 if no leak can start diet slowly iv fluids iv abx trend labs ambulate and out of bed Alexandro Perez Apr 09, 2019 20:05
[2019-04-09] MEDS ORDERED: Piperacillin/Tazobactam 3.375 GM in NS 110 ML IVPB SCH (21:00)
[2019-04-10] VITALS (7 sets, daily range): BP systolic 150–164; BP diastolic 60–70
--- NOTE | 2019-04-10 00:12 | NUR ---
NURSE NOTES: Patient blood pressure reading high during midnight vitals: 162/65. Patient had previous event of blood pressure reading high (SBP over 160). Patient is asymptomatic. Charge nurse made aware. Will continue to monitor.
--- NOTE | 2019-04-10 01:49 | NUR ---
NURSE NOTES: IV site leaking and irritated. Explained patient about inserting a new IV. Patient confirmed okay to insert new IV. Inserted new 22g IV on right forearm. New IV intact, dry, clean, and patent. Patient tolerated the procedure well. Will continue to monitor and provide care as ordered.
[2019-04-10] MEDS: D5 1/2NS w/KCl 20mEq 1,000 ML IV SCH ×2 (03:07→16:24)
--- NOTE | 2019-04-10 04:58 | NUR ---
NURSE NOTES: Reached Dr. Eli regarding patient's high blood pressure. Was not able to reach at this time. Left a message. Will follow up.
--- NOTE | 2019-04-10 05:58 | NUR ---
NURSE NOTES: Patient's blood pressure decreased to 156/65. Will continue to monitor.
[2019-04-10 06:09] LABS: BASOPHILS % (AUTO) 0.9 % (0.0-2.0); EOSINOPHILS % (AUTO) 3.5 % (0.0-3.0); HEMATOCRIT 29.8 % (37.0-47.0); HEMOGLOBIN 9.7 G/DL (12.0-16.0); LYMPHOCYTES % (AUTO) 5.6 % (20.0-45.0); MEAN CORPUSCULAR VOLUME 89 FL (80-99); MONOCYTES % (AUTO) 7.7 % (1.0-10.0); NEUTROPHILS % (AUTO) 82.2 % (45.0-75.0); PLATELET COUNT 540 K/UL (150-450); RED BLOOD COUNT 3.36 M/UL (4.20-5.40); RED CELL DISTRIBUTION WIDTH 13.5 % (11.6-14.8); WHITE BLOOD COUNT 10.3 K/UL (4.8-10.8)
[2019-04-10] MEDS: NovoLOG Insulin Flexpen SUBQ SCH ×4 (06:19→20:39)
[2019-04-10 06:22] LABS: PHOSPHORUS 3.5 MG/DL (2.5-4.9)
[2019-04-10 06:27] LABS: ALANINE AMINOTRANSFERASE 20 U/L (12-78); ALBUMIN 2.1 G/DL (3.4-5.0); ALBUMIN/GLOBULIN RATIO 0.5 (1.0-2.7); ALKALINE PHOSPHATASE 144 U/L (46-116); ANION GAP 8 mmol/L (5-15); ASPARTATE AMINO TRANSFERASE 14 U/L (15-37); BILIRUBIN,TOTAL 0.4 MG/DL (0.2-1.0); BLOOD UREA NITROGEN 4 mg/dL (7-18); CALCIUM 9.3 MG/DL (8.5-10.1); CARBON DIOXIDE 29 MMOL/L (21-32); CHLORIDE 94 MMOL/L (98-107); CREATININE 0.5 MG/DL (0.55-1.30); POTASSIUM 3.9 MMOL/L (3.5-5.1); SODIUM 131 MMOL/L (136-145)
--- NOTE | 2019-04-10 07:20 | NUR ---
HAND-OFF: Report given to DIMITRIOS Rodriguez.
--- NOTE | 2019-04-10 07:21 | NUR ---
NURSE NOTES: Received patient sleeping comfortably in bed. Nasal cannula @ 2L/min. IV site at right forearm, 22 gauge, infusing D5 1/2 NS with 20mEq of KCl @ 75ml/hour. Bed at lowest level with 2 side rails up. Call light within reach. In no apparent distress at this time. Will continue to monitor.
--- NOTE | 2019-04-10 07:22 | NUR ---
NURSE NOTES: Received patient awake and alert, lying comfortably in bed. IV site at left forearm, 20 gauge, infusing NS @ 75ml/hour. Bed at lowest level with 2 side rails up. Call light within reach. In no apparent distress at this time. Will continue to monitor.
[2019-04-10] MEDS: Heparin 5000 units/ml inj SUBQ SCH ×2 (08:40→20:39)
--- NOTE | 2019-04-10 10:00 | Infectious Diseases Prog Note ---
Assessment/Plan Assessment/Plan A: 83 yo female with PMHx of DM, HTN and Asthma who presented to the ED on 03/27/19 with 4 days of abdominal pain. doubt Pneum clinically XR: Right basilar opacity, likely pleural fluid, possibly within the major fissure. Component of infiltrate also possible Leukocytosis ( post Op) Sp Probable cholecystitis (? fistula) Transaminitis improving 04/03 Sp open cholecystectomy with excision of cholecystoduodenal fistula MRI : 04/02 very large gallstones, as described. Relationship of the gallstones to the duodenal lumen is not optimally demonstrated EGD: 04/01 Gastritis, status post biopsy. Possible stone stuck in the duodenal bulb from the gallbladder fistula CT abd 03/27/19 - Severe distention of the gallbladder, wall thickening, secondary to a large intraluminal gallstones. Cholecystitis is suspected. Correlate clinically. 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 There does appear to be some radiotracer filling the extremely distorted gallbladder, but this could be from the bowel connection, rather than the cystic duct. Leukocytosis -mild ( post EGD), Sp No Fever DM HTN HLD Asthma Arthritis PLAN - monitor pt off of AB Rx 04/09 SP Zosyn # 14 - f/u Surgery recs - Monitor CBC and temps Subjective Allergies: Coded Allergies: No Known Allergies (Unverified , 04/03/17) Subjective comfortable Objective Vital Signs Last 24 Hour Vital Signs Date Time Temp Pulse Resp B/P (MAP) Pulse Ox O2 Delivery O2 Flow Rate FiO2 04/10/19 08:42 96 156/65 04/10/19 08:00 Room Air 04/10/19 08:00 97.8 89 17 153/60 (91) 100 04/10/19 05:49 156/65 (95) 04/10/19 04:00 Nasal Cannula 2.0 04/10/19 04:00 97.7 96 18 162/70 (100) 100 04/10/19 00:00 Nasal Cannula 2.0 04/10/19 00:00 98.8 98 20 162/65 (97) 97 04/09/19 20:30 71 18 100 Nasal Cannula 2.0 28 04/09/19 20:30 100 Nasal Cannula 2.0 28 04/09/19 20:00 98.4 99 18 134/73 (93) 100 04/09/19 20:00 Nasal Cannula 2.0 04/09/19 16:00 97.9 58 18 137/56 (83) 98 04/09/19 16:00 Nasal Cannula 2.0 04/09/19 12:34 160/75 04/09/19 12:00 98.7 79 20 160/75 (103) 100 04/09/19 12:00 70 04/09/19 12:00 Nasal Cannula 2.0 04/09/19 10:46 98.6 Height (Feet): 4 Height (Inches): 5.00 Weight (Pounds): 110 HEENT: anicteric Respiratory/Chest: no respiratory distress Cardiovascular: regularly irregular Abdomen: soft, non tender Laboratory Tests Test 04/10/19 05:32 White Blood Count 10.3 K/UL (4.8-10.8) Red Blood Count 3.36 M/UL (4.20-5.40) L Hemoglobin 9.7 G/DL (12.0-16.0) L Hematocrit 29.8 % (37.0-47.0) L Mean Corpuscular Volume 89 FL (80-99) Mean Corpuscular Hemoglobin 28.9 PG (27.0-31.0) Mean Corpuscular Hemoglobin Concent 32.6 G/DL (32.0-36.0) Red Cell Distribution Width 13.5 % (11.6-14.8) Platelet Count 540 K/UL (150-450) H Mean Platelet Volume 5.0 FL (6.5-10.1) L Neutrophils (%) (Auto) 82.2 % (45.0-75.0) H Lymphocytes (%) (Auto) 5.6 % (20.0-45.0) L Monocytes (%) (Auto) 7.7 % (1.0-10.0) Eosinophils (%) (Auto) 3.5 % (0.0-3.0) H Basophils (%) (Auto) 0.9 % (0.0-2.0) Erythrocyte Sedimentation Rate 103 MM/HR (0-30) H Sodium Level 131 MMOL/L (136-145) L Potassium Level 3.9 MMOL/L (3.5-5.1) Chloride Level 94 MMOL/L (98-107) L Carbon Dioxide Level 29 MMOL/L (21-32) Anion Gap 8 mmol/L (5-15) Blood Urea Nitrogen 4 mg/dL (7-18) L Creatinine 0.5 MG/DL (0.55-1.30) L Estimat Glomerular Filtration Rate mL/min (>60) Glucose Level 145 MG/DL (74-106) H Calcium Level 9.3 MG/DL (8.5-10.1) Phosphorus Level 3.5 MG/DL (2.5-4.9) Magnesium Level 1.7 MG/DL (1.8-2.4) L Total Bilirubin 0.4 MG/DL (0.2-1.0) Aspartate Amino Transf (AST/SGOT) 14 U/L (15-37) L Alanine Aminotransferase (ALT/SGPT) 20 U/L (12-78) Alkaline Phosphatase 144 U/L (46-116) H C-Reactive Protein, Quantitative 7.3 mg/dL (0.00-0.90) H Total Protein 6.6 G/DL (6.4-8.2) Albumin 2.1 G/DL (3.4-5.0) L Globulin 4.5 g/dL Albumin/Globulin Ratio 0.5 (1.0-2.7) L Current Medications Medications (Trade) Dose Ordered Sig/Lora Route PRN Reason Start Time Stop Time Status Last Admin Dose Admin Acetaminophen (Tylenol) 650 mg Q4H PRN RECTAL FEVER 04/09/19 13:44 05/09/19 13:43 Albuterol/ Ipratropium (Albuterol/ Ipratropium) 3 ml Q4H PRN HHN Shortness of Breath 04/09/19 13:45 04/14/19 13:44 Amlodipine Besylate (Norvasc) 5 mg DAILY ORAL 04/10/19 09:00 05/04/19 08:59 Dextrose (Dextrose 50%) 25 ml Q30M PRN IV Hypoglycemia 04/09/19 14:00 05/04/19 07:29 Dextrose (Dextrose 50%) 50 ml Q30M PRN IV Hypoglycemia 04/09/19 14:00 05/04/19 07:29 Dextrose/ Electrolytes 1,000 ml @ 75 mls/hr [id number] IV 04/09/19 13:44 05/09/19 13:43 04/10/19 03:07 Diphenhydramine HCl (Benadryl) 12.5 mg Q6H PRN IVP Itching/Pruritis 04/09/19 13:44 05/09/19 13:43 Heparin Sodium (Porcine) (Heparin 5000 units/ml) 5,000 units EVERY 12 HOURS SUBQ 04/09/19 21:00 04/26/19 20:59 04/10/19 08:40 Insulin Aspart (NovoLOG) BEFORE MEALS AND HS SUBQ 04/09/19 16:30 05/04/19 11:29 Metoclopramide HCl (Reglan) 10 mg Q6H PRN IVP Nausea & Vomiting 04/09/19 13:45 05/09/19 13:44 Morphine Sulfate (Morphine Sulfate) 1 mg Q4H PRN IVP pain scale 1-3 04/09/19 13:45 04/16/19 13:44 Morphine Sulfate (Morphine Sulfate) 2 mg Q4H PRN IVP pain scale 4-6 04/09/19 13:45 04/16/19 13:44 Morphine Sulfate (Morphine Sulfate) 4 mg Q4H PRN IVP pain score 7-10 04/09/19 13:45 04/16/19 13:44 Ondansetron HCl (Zofran) 4 mg Q6H PRN IVP Nausea & Vomiting FIRST CHOICE 04/09/19 13:46 05/09/19 13:45 Maksim Davis MD Apr 10, 2019 10:00
--- NOTE | 2019-04-10 13:01 | GI Progress Note ---
Assessment/Plan Problems: (1) duodeno-cholecytic fistula (2) Diabetes mellitus ICD Codes: E11.9 - Type 2 diabetes mellitus without complications SNOMED: 14766832 (3) Failure to thrive in adult ICD Codes: R62.7 - Adult failure to thrive SNOMED: 898586623 (4) Elevated liver enzymes ICD Codes: R74.8 - Abnormal levels of other serum enzymes SNOMED: 701453904 (5) Hepatitis ICD Codes: K75.9 - Inflammatory liver disease, unspecified SNOMED: 333436644 (6) Diverticulitis ICD Codes: K57.92 - Diverticulitis of intestine, part unspecified, without perforation or abscess without bleeding SNOMED: 019136610 (7) Cholelithiases ICD Codes: K80.20 - Calculus of gallbladder without cholecystitis without obstruction SNOMED: 655327373 (8) Cholecystitis ICD Codes: K81.9 - Cholecystitis, unspecified SNOMED: 91648128 Status: progressing Status Narrative Discussed with Dr. Friedman. Assessment/Plan Assessment - diverticulitis - abnormal GB with duodenal fistula - Anemia - abnormal LFT s/p EGD SUMMARY OF FINDINGS: 1. Hiatal hernia. 2. Gastritis, status post biopsy. 3. Possible stone stuck in the duodenal bulb from the gallbladder fistula. RECOMMENDATIONS: s/p surg, follow up recs >> plan for upper GI contrast study to eval for leak soon. if no leak can start diet slowly npo + ivf iv abx fu labs The patient was seen and examined at bedside and all new and available data was reviewed in the patients chart. I agree with the above findings, impression and plan. (Patient seen earlier today. Signature stamp does not reflect patient encounter time.). - Panda Friedman MD Subjective Subjective limited Objective Last 24 Hour Vital Signs Date Time Temp Pulse Resp B/P (MAP) Pulse Ox O2 Delivery O2 Flow Rate FiO2 04/10/19 12:00 Room Air 04/10/19 08:42 96 156/65 04/10/19 08:00 Room Air 04/10/19 08:00 97.8 89 17 153/60 (91) 100 04/10/19 05:49 156/65 (95) 04/10/19 04:00 Nasal Cannula 2.0 04/10/19 04:00 97.7 96 18 162/70 (100) 100 04/10/19 00:00 Nasal Cannula 2.0 04/10/19 00:00 98.8 98 20 162/65 (97) 97 04/09/19 20:30 71 18 100 Nasal Cannula 2.0 28 04/09/19 20:30 100 Nasal Cannula 2.0 28 04/09/19 20:00 98.4 99 18 134/73 (93) 100 04/09/19 20:00 Nasal Cannula 2.0 04/09/19 16:00 97.9 58 18 137/56 (83) 98 04/09/19 16:00 Nasal Cannula 2.0 Intake and Output 04/09/19 04/10/19 18:59 06:59 Intake Total 655.0 ml 825 ml Output Total 255 ml 620 ml Balance 400.0 ml 205 ml IV Total 655.0 ml 825 ml Output Urine Total 200 ml 600 ml Drainage Total 55 ml 20 ml # Voids 1 Laboratory Tests Test 04/10/19 05:32 White Blood Count 10.3 K/UL (4.8-10.8) Red Blood Count 3.36 M/UL (4.20-5.40) L Hemoglobin 9.7 G/DL (12.0-16.0) L Hematocrit 29.8 % (37.0-47.0) L Mean Corpuscular Volume 89 FL (80-99) Mean Corpuscular Hemoglobin 28.9 PG (27.0-31.0) Mean Corpuscular Hemoglobin Concent 32.6 G/DL (32.0-36.0) Red Cell Distribution Width 13.5 % (11.6-14.8) Platelet Count 540 K/UL (150-450) H Mean Platelet Volume 5.0 FL (6.5-10.1) L Neutrophils (%) (Auto) 82.2 % (45.0-75.0) H Lymphocytes (%) (Auto) 5.6 % (20.0-45.0) L Monocytes (%) (Auto) 7.7 % (1.0-10.0) Eosinophils (%) (Auto) 3.5 % (0.0-3.0) H Basophils (%) (Auto) 0.9 % (0.0-2.0) Erythrocyte Sedimentation Rate 103 MM/HR (0-30) H Sodium Level 131 MMOL/L (136-145) L Potassium Level 3.9 MMOL/L (3.5-5.1) Chloride Level 94 MMOL/L (98-107) L Carbon Dioxide Level 29 MMOL/L (21-32) Anion Gap 8 mmol/L (5-15) Blood Urea Nitrogen 4 mg/dL (7-18) L Creatinine 0.5 MG/DL (0.55-1.30) L Estimat Glomerular Filtration Rate mL/min (>60) Glucose Level 145 MG/DL (74-106) H Calcium Level 9.3 MG/DL (8.5-10.1) Phosphorus Level 3.5 MG/DL (2.5-4.9) Magnesium Level 1.7 MG/DL (1.8-2.4) L Total Bilirubin 0.4 MG/DL (0.2-1.0) Aspartate Amino Transf (AST/SGOT) 14 U/L (15-37) L Alanine Aminotransferase (ALT/SGPT) 20 U/L (12-78) Alkaline Phosphatase 144 U/L (46-116) H C-Reactive Protein, Quantitative 7.3 mg/dL (0.00-0.90) H Total Protein 6.6 G/DL (6.4-8.2) Albumin 2.1 G/DL (3.4-5.0) L Globulin 4.5 g/dL Albumin/Globulin Ratio 0.5 (1.0-2.7) L Height (Feet): 4 Height (Inches): 5.00 Weight (Pounds): 110 General Appearance: WD/WN, no apparent distress, alert Cardiovascular: normal rate Respiratory/Chest: normal breath sounds, no respiratory distress Abdominal Exam: normal bowel sounds, non tender, soft Extremities: normal range of motion, non-tender David Vieira K9 HANDLER Apr 10, 2019 13:00
--- NOTE | 2019-04-10 14:18 | Pulmonology Progress Note ---
Assessment/Plan Problems: (1) duodeno-cholecytic fistula (2) Cholecystitis (3) Cholelithiases (4) Hepatitis (5) Failure to thrive in adult (6) Diabetes mellitus (7) Diverticulitis Assessment/Plan doing better still npo continue abx, wbc decreasing, normal now upper GI series, if no leak, po diet will be started soon on IV fluids Mg supplement check cultures f/u surgical recommendations mg supplement Subjective ROS Limited/Unobtainable: No Constitutional: Reports: no symptoms HEENT: Repors: no symptoms Allergies: Coded Allergies: No Known Allergies (Unverified , 04/03/17) Objective Last 24 Hour Vital Signs Date Time Temp Pulse Resp B/P (MAP) Pulse Ox O2 Delivery O2 Flow Rate FiO2 04/10/19 12:00 Room Air 04/10/19 09:22 100 Nasal Cannula 2.0 28 04/10/19 09:22 87 18 100 Nasal Cannula 2.0 28 04/10/19 08:42 96 156/65 04/10/19 08:00 Room Air 04/10/19 08:00 97.8 89 17 153/60 (91) 100 04/10/19 05:49 156/65 (95) 04/10/19 04:00 Nasal Cannula 2.0 04/10/19 04:00 97.7 96 18 162/70 (100) 100 04/10/19 00:00 Nasal Cannula 2.0 04/10/19 00:00 98.8 98 20 162/65 (97) 97 04/09/19 20:30 71 18 100 Nasal Cannula 2.0 28 04/09/19 20:30 100 Nasal Cannula 2.0 28 04/09/19 20:00 98.4 99 18 134/73 (93) 100 04/09/19 20:00 Nasal Cannula 2.0 04/09/19 16:00 97.9 58 18 137/56 (83) 98 04/09/19 16:00 Nasal Cannula 2.0 Intake and Output 04/09/19 04/10/19 18:59 06:59 Intake Total 655.0 ml 825 ml Output Total 255 ml 620 ml Balance 400.0 ml 205 ml IV Total 655.0 ml 825 ml Output Urine Total 200 ml 600 ml Drainage Total 55 ml 20 ml # Voids 1 Objective General Appearance: WD/WN HEENT: normocephalic, atraumatic Respiratory/Chest: chest wall non-tender, lungs clear Breasts: no masses Cardiovascular: normal peripheral pulses Abdomen: normal bowel sounds, soft, non tender Genitourinary: normal external genitalia Extremities: no clubbing Neurologic/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: 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 Lymphatic: no neck adenopathy Laboratory Tests 04/10/19 05:32: White Blood Count 10.3, Red Blood Count 3.36L, Hemoglobin 9.7L, Hematocrit 29.8L , Mean Corpuscular Volume 89, Mean Corpuscular Hemoglobin 28.9, Mean Corpuscular Hemoglobin Concent 32.6, Red Cell Distribution Width 13.5, Platelet Count 540H, Mean Platelet Volume 5.0L, Neutrophils (%) (Auto) 82.2H, Lymphocytes (%) (Auto) 5.6L, Monocytes (%) (Auto) 7.7, Eosinophils (%) (Auto) 3.5H, Basophils (%) (Auto) 0.9, Erythrocyte Sedimentation Rate 103H, Sodium Level 131L, Potassium Level 3.9, Chloride Level 94L, Carbon Dioxide Level 29, Anion Gap 8, Blood Urea Nitrogen 4L, Creatinine 0.5L, Estimat Glomerular Filtration Rate , Glucose Level 145H, Calcium Level 9.3, Phosphorus Level 3.5, Magnesium Level 1.7L, Total Bilirubin 0.4, Aspartate Amino Transf (AST/SGOT) 14L , Alanine Aminotransferase (ALT/SGPT) 20, Alkaline Phosphatase 144H, C-Reactive Protein, Quantitative 7.3H, Total Protein 6.6, Albumin 2.1L, Globulin 4.5, Albumin/Globulin Ratio 0.5L Current Medications Medications (Trade) Dose Ordered Sig/Lora Route PRN Reason Start Time Stop Time Status Last Admin Dose Admin Acetaminophen (Tylenol) 650 mg Q4H PRN RECTAL FEVER 04/09/19 13:44 05/09/19 13:43 Albuterol/ Ipratropium (Albuterol/ Ipratropium) 3 ml Q4H PRN HHN Shortness of Breath 04/09/19 13:45 04/14/19 13:44 Amlodipine Besylate (Norvasc) 5 mg DAILY ORAL 04/10/19 09:00 05/04/19 08:59 Dextrose (Dextrose 50%) 25 ml Q30M PRN IV Hypoglycemia 10/2/19 14:00 05/04/19 07:29 Dextrose (Dextrose 50%) 50 ml Q30M PRN IV Hypoglycemia 04/09/19 14:00 05/04/19 07:29 Dextrose/ Electrolytes 1,000 ml @ 75 mls/hr [id number] IV 04/09/19 13:44 05/09/19 13:43 04/10/19 03:07 Diphenhydramine HCl (Benadryl) 12.5 mg Q6H PRN IVP Itching/Pruritis 04/09/19 13:44 05/09/19 13:43 Heparin Sodium (Porcine) (Heparin 5000 units/ml) 5,000 units EVERY 12 HOURS SUBQ 04/09/19 21:00 04/26/19 20:59 04/10/19 08:40 Hydralazine HCl (Apresoline) 20 mg Q4H PRN ORAL For High Blood Pressure 04/10/19 10:45 05/10/19 10:44 Insulin Aspart (NovoLOG) BEFORE MEALS AND HS SUBQ 04/09/19 16:30 05/04/19 11:29 04/10/19 12:30 Magnesium Sulfate 100 ml @ 100 mls/hr Q1H IVPB 04/10/19 14:30 04/10/19 16:29 UNV Metoclopramide HCl (Reglan) 10 mg Q6H PRN IVP Nausea & Vomiting 04/09/19 13:45 05/09/19 13:44 Morphine Sulfate (Morphine Sulfate) 1 mg Q4H PRN IVP pain scale 1-3 04/09/19 13:45 04/16/19 13:44 Morphine Sulfate (Morphine Sulfate) 2 mg Q4H PRN IVP pain scale 4-6 04/09/19 13:45 04/16/19 13:44 Morphine Sulfate (Morphine Sulfate) 4 mg Q4H PRN IVP pain score 7-10 04/09/19 13:45 04/16/19 13:44 Ondansetron HCl (Zofran) 4 mg Q6H PRN IVP Nausea & Vomiting FIRST CHOICE 04/09/19 13:46 05/09/19 13:45 Dony Eli MD Apr 10, 2019 14:18
[2019-04-10] MEDS: HydrALAZINE 10mg Tab ORAL PRN (14:31)
--- NOTE | 2019-04-10 17:23 | Internal Med Progress Note ---
Subjective Date of Service: Apr 10, 2019 Physician Name Isaías Atwood Attending Physician Logan Camargo MD Current Medications Medications (Trade) Dose Ordered Sig/Lora Route PRN Reason Start Time Stop Time Status Last Admin Dose Admin Acetaminophen (Tylenol) 650 mg Q4H PRN RECTAL FEVER 04/09/19 13:44 05/09/19 13:43 Albuterol/ Ipratropium (Albuterol/ Ipratropium) 3 ml Q4H PRN HHN Shortness of Breath 04/09/19 13:45 04/14/19 13:44 Amlodipine Besylate (Norvasc) 5 mg DAILY ORAL 04/10/19 09:00 05/04/19 08:59 Dextrose (Dextrose 50%) 25 ml Q30M PRN IV Hypoglycemia 04/09/19 14:00 05/04/19 07:29 Dextrose (Dextrose 50%) 50 ml Q30M PRN IV Hypoglycemia 04/09/19 14:00 05/04/19 07:29 Dextrose/ Electrolytes 1,000 ml @ 75 mls/hr [id number] IV 04/09/19 13:44 05/09/19 13:43 04/10/19 03:07 Diphenhydramine HCl (Benadryl) 12.5 mg Q6H PRN IVP Itching/Pruritis 04/09/19 13:44 05/09/19 13:43 Heparin Sodium (Porcine) (Heparin 5000 units/ml) 5,000 units EVERY 12 HOURS SUBQ 04/09/19 21:00 04/26/19 20:59 04/10/19 08:40 Hydralazine HCl (Apresoline) 20 mg Q4H PRN ORAL For High Blood Pressure 04/10/19 10:45 05/10/19 10:44 04/10/19 14:31 Insulin Aspart (NovoLOG) BEFORE MEALS AND HS SUBQ 04/09/19 16:30 05/04/19 11:29 04/10/19 16:51 Metoclopramide HCl (Reglan) 10 mg Q6H PRN IVP Nausea & Vomiting 04/09/19 13:45 05/09/19 13:44 Morphine Sulfate (Morphine Sulfate) 1 mg Q4H PRN IVP pain scale 1-3 04/09/19 13:45 04/16/19 13:44 Morphine Sulfate (Morphine Sulfate) 2 mg Q4H PRN IVP pain scale 4-6 04/09/19 13:45 04/16/19 13:44 Morphine Sulfate (Morphine Sulfate) 4 mg Q4H PRN IVP pain score 7-10 04/09/19 13:45 04/16/19 13:44 Ondansetron HCl (Zofran) 4 mg Q6H PRN IVP Nausea & Vomiting FIRST CHOICE 04/09/19 13:46 05/09/19 13:45 Allergies: Coded Allergies: No Known Allergies (Unverified , 04/03/17) ROS Limited/Unobtainable: No Constitutional: Reports: no symptoms HEENT: Reports: no symptoms Cardiovascular: Reports: no symptoms Respiratory: Reports: no symptoms Gastrointestinal/Abdominal: Reports: no symptoms Genitourinary: Reports: no symptoms Neurologic/Psychiatric: Reports: no symptoms Subjective 83 YO F admitted with right upper quadrant pain. Now acute cholecystitis and cholelithiasis. Cover for Int Med-Dr Camargo. 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 Objective Last Vital Signs Date Time Temp Pulse Resp B/P (MAP) Pulse Ox O2 Delivery O2 Flow Rate FiO2 04/10/19 16:00 97.6 89 18 164/65 (98) 100 04/10/19 16:00 Room Air 04/10/19 09:22 2.0 28 Laboratory Tests Test 04/10/19 05:32 White Blood Count 10.3 K/UL (4.8-10.8) Red Blood Count 3.36 M/UL (4.20-5.40) L Hemoglobin 9.7 G/DL (12.0-16.0) L Hematocrit 29.8 % (37.0-47.0) L Mean Corpuscular Volume 89 FL (80-99) Mean Corpuscular Hemoglobin 28.9 PG (27.0-31.0) Mean Corpuscular Hemoglobin Concent 32.6 G/DL (32.0-36.0) Red Cell Distribution Width 13.5 % (11.6-14.8) Platelet Count 540 K/UL (150-450) H Mean Platelet Volume 5.0 FL (6.5-10.1) L Neutrophils (%) (Auto) 82.2 % (45.0-75.0) H Lymphocytes (%) (Auto) 5.6 % (20.0-45.0) L Monocytes (%) (Auto) 7.7 % (1.0-10.0) Eosinophils (%) (Auto) 3.5 % (0.0-3.0) H Basophils (%) (Auto) 0.9 % (0.0-2.0) Erythrocyte Sedimentation Rate 103 MM/HR (0-30) H Sodium Level 131 MMOL/L (136-145) L Potassium Level 3.9 MMOL/L (3.5-5.1) Chloride Level 94 MMOL/L (98-107) L Carbon Dioxide Level 29 MMOL/L (21-32) Anion Gap 8 mmol/L (5-15) Blood Urea Nitrogen 4 mg/dL (7-18) L Creatinine 0.5 MG/DL (0.55-1.30) L Estimat Glomerular Filtration Rate mL/min (>60) Glucose Level 145 MG/DL (74-106) H Calcium Level 9.3 MG/DL (8.5-10.1) Phosphorus Level 3.5 MG/DL (2.5-4.9) Magnesium Level 1.7 MG/DL (1.8-2.4) L Total Bilirubin 0.4 MG/DL (0.2-1.0) Aspartate Amino Transf (AST/SGOT) 14 U/L (15-37) L Alanine Aminotransferase (ALT/SGPT) 20 U/L (12-78) Alkaline Phosphatase 144 U/L (46-116) H C-Reactive Protein, Quantitative 7.3 mg/dL (0.00-0.90) H Total Protein 6.6 G/DL (6.4-8.2) Albumin 2.1 G/DL (3.4-5.0) L Globulin 4.5 g/dL Albumin/Globulin Ratio 0.5 (1.0-2.7) L Intake and Output 04/09/19 04/10/19 19:00 07:00 Intake Total 655.0 ml 750 ml Output Total 255 ml 620 ml Balance 400.0 ml 130 ml IV Total 655.0 ml 750 ml Output Urine Total 200 ml 600 ml Drainage Total 55 ml 20 ml # Voids 1 Objective PHYSICAL EXAMINATION: GENERAL: The patient is a well-developed and well-nourished female, in no apparent distress. HEENT: Eyes, pupils are equal and responsive to light and accommodation. Extraocular movements are intact. NECK: Supple without lymphadenopathy. CHEST: Lungs are clear to auscultation bilaterally without wheezes or rales. CARDIOVASCULAR: Regular rhythm and rate. S1, S2 normal without murmurs, rubs, or gallops. ABDOMEN: Soft, nondistended with decreased bowel sounds. There is pain to palpation to right upper quadrant. No evidence of rebound or guarding noted. EXTREMITIES: Negative for clubbing, cyanosis, or edema. RECTAL/GENITAL: Not performed. NEUROLOGIC: Cranial nerves II through XII are grossly intact without focal deficits. Motor strength is 5/5 bilaterally. Deep tendon reflexes are 2+ plantar. Assessment/Plan Assessment/Plan ASSESSMENT: This is an 83-year-old female with: 1. Right upper quadrant pain. 2. Acute cholecystitis. 3. Cholelithiasis. 4. Elevated liver function tests. 5. Diverticulitis. 6. Diabetes type 2. 7. Hypertension. 8. Hypercholesterolemia. 9. Asthma. 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 Occult pos stool 12. Leukocytosis TREATMENT: 1. Right upper quadrant pain/diverticulitis. A Gastroenterology consultation has been obtained with Dr. Panda Friedman. 2. Acute cholecystitis/cholelithiasis. 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 S/P endoscopy 04/01/19= large stone in duodenem and tricia-duodenal fistula A General Surgery consultation has been obtained with Dr. Perez. The patient has been started empirically on intravenous ciprofloxacin and metronidazole. Surgery date is pending 3. Elevated liver function tests. Improving. As above, a Gastroenterology consultation has been obtained with Dr. Panda Friedman. Possible colonoscopy and endoscopy for occult blood source 4. Diabetes type 2. The patient has been placed on NovoLog sliding scale. 5. Hypertension. The patient is currently hypotensive. Hold amlodipine above. 6. Hypercholesterolemia. Continue simvastatin 20 mg p.o. daily. 7. Asthma. 8. 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 Advance to clear liq diet 10. ABX=zosyn per ID= Isaías Winchester MD Apr 10, 2019 17:23
--- NOTE | 2019-04-10 19:21 | NUR ---
HAND-OFF: Report given to DIMITRIOS Dillon.
--- NOTE | 2019-04-10 19:34 | Surgery Progress Note ---
Surgery Progress Note Subjective Procedure Performed 1. diagnostic laparoscopic 2. 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 distal gastrectomy and closure of duodenal stump - B1 4. retrocolic anterior gastrojejunostomy 5. partial omentectomy 6. abdominal drain placement Additional Comments afebrile HD stable labs noted exam stable started on clears today Objective Last 24 Hour Vital Signs Date Time Temp Pulse Resp B/P (MAP) Pulse Ox O2 Delivery O2 Flow Rate FiO2 04/10/19 16:00 97.6 89 18 164/65 (98) 100 04/10/19 16:00 Room Air 04/10/19 14:31 163/68 04/10/19 12:00 97.9 103 17 163/68 (99) 100 04/10/19 12:00 Room Air 04/10/19 09:22 100 Nasal Cannula 2.0 28 04/10/19 09:22 87 18 100 Nasal Cannula 2.0 28 04/10/19 08:42 96 156/65 04/10/19 08:00 Room Air 04/10/19 08:00 97.8 89 17 153/60 (91) 100 04/10/19 05:49 156/65 (95) 04/10/19 04:00 Nasal Cannula 2.0 04/10/19 04:00 97.7 96 18 162/70 (100) 100 04/10/19 00:00 Nasal Cannula 2.0 04/10/19 00:00 98.8 98 20 162/65 (97) 97 04/09/19 20:30 71 18 100 Nasal Cannula 2.0 28 04/09/19 20:30 100 Nasal Cannula 2.0 28 04/09/19 20:00 98.4 99 18 134/73 (93) 100 04/09/19 20:00 Nasal Cannula 2.0 I&O Intake and Output 04/09/19 04/10/19 19:00 07:00 Intake Total 655.0 ml 750 ml Output Total 255 ml 620 ml Balance 400.0 ml 130 ml IV Total 655.0 ml 750 ml Output Urine Total 200 ml 600 ml Drainage Total 55 ml 20 ml # Voids 1 Dressing: dry Wound: clean Drains: other - serous Cardiovascular: RSR Respiratory: clear Abdomen: soft, non-tender, present bowel sounds, non-distended Extremities: no edema, no tenderness, no cyanosis Laboratory Tests Test 04/10/19 05:32 White Blood Count 10.3 K/UL (4.8-10.8) Red Blood Count 3.36 M/UL (4.20-5.40) L Hemoglobin 9.7 G/DL (12.0-16.0) L Hematocrit 29.8 % (37.0-47.0) L Mean Corpuscular Volume 89 FL (80-99) Mean Corpuscular Hemoglobin 28.9 PG (27.0-31.0) Mean Corpuscular Hemoglobin Concent 32.6 G/DL (32.0-36.0) Red Cell Distribution Width 13.5 % (11.6-14.8) Platelet Count 540 K/UL (150-450) H Mean Platelet Volume 5.0 FL (6.5-10.1) L Neutrophils (%) (Auto) 82.2 % (45.0-75.0) H Lymphocytes (%) (Auto) 5.6 % (20.0-45.0) L Monocytes (%) (Auto) 7.7 % (1.0-10.0) Eosinophils (%) (Auto) 3.5 % (0.0-3.0) H Basophils (%) (Auto) 0.9 % (0.0-2.0) Erythrocyte Sedimentation Rate 103 MM/HR (0-30) H Sodium Level 131 MMOL/L (136-145) L Potassium Level 3.9 MMOL/L (3.5-5.1) Chloride Level 94 MMOL/L (98-107) L Carbon Dioxide Level 29 MMOL/L (21-32) Anion Gap 8 mmol/L (5-15) Blood Urea Nitrogen 4 mg/dL (7-18) L Creatinine 0.5 MG/DL (0.55-1.30) L Estimat Glomerular Filtration Rate mL/min (>60) Glucose Level 145 MG/DL (74-106) H Calcium Level 9.3 MG/DL (8.5-10.1) Phosphorus Level 3.5 MG/DL (2.5-4.9) Magnesium Level 1.7 MG/DL (1.8-2.4) L Total Bilirubin 0.4 MG/DL (0.2-1.0) Aspartate Amino Transf (AST/SGOT) 14 U/L (15-37) L Alanine Aminotransferase (ALT/SGPT) 20 U/L (12-78) Alkaline Phosphatase 144 U/L (46-116) H C-Reactive Protein, Quantitative 7.3 mg/dL (0.00-0.90) H Total Protein 6.6 G/DL (6.4-8.2) Albumin 2.1 G/DL (3.4-5.0) L Globulin 4.5 g/dL Albumin/Globulin Ratio 0.5 (1.0-2.7) L Assessment Post-op Diagnosis 1. 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
--- NOTE | 2019-04-10 19:39 | NUR ---
NURSE NOTES: Received patient in bed, awake, alert, oriented x4, speaks Bulgarian only, IV site is clean dry and intact, SAMMY is in place, draining serous sanguinous fluid. Call light is within reach, bed is lowered, locked and alarm is on. Will continue to monitor for comfort and safety.
[2019-04-11] VITALS: BP 162/73
[2019-04-11] MEDS: HydrALAZINE 10mg Tab ORAL PRN (00:14)
[2019-04-11 04:00] VITALS: BP 143/53
[2019-04-11] MEDS: D5 1/2NS w/KCl 20mEq 1,000 ML IV SCH ×2 (05:29→20:55)
[2019-04-11] MEDS: NovoLOG Insulin Flexpen SUBQ SCH ×4 (05:38→20:56)
[2019-04-11 06:52] LABS: ANION GAP 5 mmol/L (5-15); BLOOD UREA NITROGEN 5 mg/dL (7-18); CALCIUM 9.4 MG/DL (8.5-10.1); CARBON DIOXIDE 30 MMOL/L (21-32); CHLORIDE 98 MMOL/L (98-107); CREATININE 0.6 MG/DL (0.55-1.30); POTASSIUM 4.8 MMOL/L (3.5-5.1); SODIUM 133 MMOL/L (136-145)
[2019-04-11 07:01] LABS: EOSINOPHILS % (AUTO) 5.1 % (0.0-3.0); HEMATOCRIT 29.9 % (37.0-47.0); HEMOGLOBIN 9.8 G/DL (12.0-16.0); LYMPHOCYTES % (AUTO) 8.7 % (20.0-45.0); MEAN CORPUSCULAR VOLUME 88 FL (80-99); MONOCYTES % (AUTO) 8.6 % (1.0-10.0); NEUTROPHILS % (AUTO) 76.7 % (45.0-75.0); PLATELET COUNT 626 K/UL (150-450); RED BLOOD COUNT 3.38 M/UL (4.20-5.40); RED CELL DISTRIBUTION WIDTH 13.5 % (11.6-14.8); WHITE BLOOD COUNT 11.4 K/UL (4.8-10.8)
--- NOTE | 2019-04-11 07:34 | NUR ---
NURSE NOTES: Received pt in bed, AAO x 4. Divehi speaking. On NC 2L/min. No c/o of distress/pain. IV on R FA 22g intact and patent, with saline lock. SAMMY noted on RUQ. Side rails x 2. Bed in the lowest and locked. Call light within reach. Will continue to monitor
[2019-04-11 08:00] VITALS: BP 139/62
[2019-04-11] MEDS: Heparin 5000 units/ml inj SUBQ SCH ×2 (09:03→20:57)
--- NOTE | 2019-04-11 09:25 | NUR ---
RD ASSESSMENT & RECOMMENDATIONS SEE CARE ACTIVITY FOR COMPLETE ASSESSMENT DAILY ESTIMATED NEEDS: Needs based on DM, surgery/ 41kg 25-35 kcals/kg 0033-3655 total kcals 1-2 g protein/kg 41-82 g total protein 25-30 mL/kg 5872-0194 total fluid mLs NUTRITION DIAGNOSIS: Altered GI function R/T suspected cholecystitis, abnormal GB with duodenal fistula as evidenced by pt admitted w/ c/o abdominal pain, s/p open brennen, diet now advanced to clears. CURRENT DIET: Now CLD PO DIET RECOMMENDATIONS: Advance diet per MD TPN Comment: consult RD w/ prolonged NPO status for TPN ADDITIONAL RECOMMENDATIONS: * Calibrated bedscale wt for accurate CBW * Strict NPO/ monitor when medically ready to initiate diet If on clears, rec Enusre Clear TID w/ meals DAVID BID for surgial wound healing * CONSIDER TPN IF UNABLE TO START ORAL DIET IN THE NEXT 2-3 DAYS * Add Ensure Clear to CLD for added kcal/ pro to meals
--- NOTE | 2019-04-11 11:02 | NUR ---
CASE MANAGEMENT:REVIEW 04/11/19 SI: POD #8 OPEN CHOLECYSTECTOMY W/EXCISION OF CHOLECYSTODUODENAL FISTULA PARTIAL OMENTECTOMY. DRAIN PLACEMENT 98.2 100 17 139/62 100% ON RA WBC+11.4 H/H-9.8/29.9 IS: IVF@75/HR NORVASC PO QD HEPARIN SQ Q12 IVF@100/HR IV MORPHINE Q4HRS PRN : MED/SURG STATUS DCP: PATIENT IS FROM HOME PLAN: CLEAR LIQUID DIET
[2019-04-11 12:00] VITALS: BP 130/78
--- NOTE | 2019-04-11 12:58 | GI Progress Note ---
Assessment/Plan Problems: (1) duodeno-cholecytic fistula (2) Diabetes mellitus ICD Codes: E11.9 - Type 2 diabetes mellitus without complications SNOMED: 41783669 (3) Failure to thrive in adult ICD Codes: R62.7 - Adult failure to thrive SNOMED: 659063710 (4) Elevated liver enzymes ICD Codes: R74.8 - Abnormal levels of other serum enzymes SNOMED: 504518093 (5) Hepatitis ICD Codes: K75.9 - Inflammatory liver disease, unspecified SNOMED: 625502153 (6) Diverticulitis ICD Codes: K57.92 - Diverticulitis of intestine, part unspecified, without perforation or abscess without bleeding SNOMED: 184405384 (7) Cholelithiases ICD Codes: K80.20 - Calculus of gallbladder without cholecystitis without obstruction SNOMED: 052882362 (8) Cholecystitis ICD Codes: K81.9 - Cholecystitis, unspecified SNOMED: 75917263 Status: stable Status Narrative Discussed with Dr. Friedman. Assessment/Plan Assessment - diverticulitis - abnormal GB with duodenal fistula - Anemia - abnormal LFT s/p EGD SUMMARY OF FINDINGS: 1. Hiatal hernia. 2. Gastritis, status post biopsy. 3. Possible stone stuck in the duodenal bulb from the gallbladder fistula. RECOMMENDATIONS: s/p surg, follow up recs >> plan for upper GI contrast study to eval for leak soon. if no leak can start diet slowly npo + ivf iv abx fu labs The patient was seen and examined at bedside and all new and available data was reviewed in the patients chart. I agree with the above findings, impression and plan. (Patient seen earlier today. Signature stamp does not reflect patient encounter time.). - Panda Friedman MD Subjective Subjective limited Objective Last 24 Hour Vital Signs Date Time Temp Pulse Resp B/P (MAP) Pulse Ox O2 Delivery O2 Flow Rate FiO2 04/11/19 09:02 100 139/62 04/11/19 08:00 Room Air 04/11/19 08:00 98.2 100 17 139/62 (87) 100 04/11/19 07:40 86 21 99 Nasal Cannula 2.0 28 04/11/19 07:40 99 Nasal Cannula 2.0 28 04/11/19 04:00 96.6 100 18 143/53 (83) 04/11/19 03:26 Room Air 04/11/19 01:41 Room Air 04/11/19 00:14 162/78 04/11/19 00:01 Room Air 04/11/19 00:00 98.1 93 16 162/73 (102) 100 04/10/19 21:08 Room Air 04/10/19 21:08 Room Air 04/10/19 20:19 77 18 99 Nasal Cannula 2.0 28 04/10/19 20:19 99 Nasal Cannula 2.0 28 04/10/19 20:00 Room Air 04/10/19 20:00 97.9 90 16 150/66 (94) 90 04/10/19 16:00 97.6 89 18 164/65 (98) 100 04/10/19 16:00 Room Air 04/10/19 14:31 163/68 Intake and Output 04/10/19 04/11/19 18:59 06:59 Intake Total 75 ml Output Total 32 ml 60 ml Balance 43 ml -60 ml IV Total 75 ml Drainage Total 32 ml 60 ml # Bowel Movements 4 6 Laboratory Tests Test 04/11/19 06:14 White Blood Count 11.4 K/UL (4.8-10.8) H Red Blood Count 3.38 M/UL (4.20-5.40) L Hemoglobin 9.8 G/DL (12.0-16.0) L Hematocrit 29.9 % (37.0-47.0) L Mean Corpuscular Volume 88 FL (80-99) Mean Corpuscular Hemoglobin 28.9 PG (27.0-31.0) Mean Corpuscular Hemoglobin Concent 32.7 G/DL (32.0-36.0) Red Cell Distribution Width 13.5 % (11.6-14.8) Platelet Count 626 K/UL (150-450) H Mean Platelet Volume 4.8 FL (6.5-10.1) L Neutrophils (%) (Auto) 76.7 % (45.0-75.0) H Lymphocytes (%) (Auto) 8.7 % (20.0-45.0) L Monocytes (%) (Auto) 8.6 % (1.0-10.0) Eosinophils (%) (Auto) 5.1 % (0.0-3.0) H Basophils (%) (Auto) 1.0 % (0.0-2.0) Sodium Level 133 MMOL/L (136-145) L Potassium Level 4.8 MMOL/L (3.5-5.1) Chloride Level 98 MMOL/L (98-107) Carbon Dioxide Level 30 MMOL/L (21-32) Anion Gap 5 mmol/L (5-15) Blood Urea Nitrogen 5 mg/dL (7-18) L Creatinine 0.6 MG/DL (0.55-1.30) Estimat Glomerular Filtration Rate mL/min (>60) Glucose Level 119 MG/DL (74-106) H Calcium Level 9.4 MG/DL (8.5-10.1) Height (Feet): 4 Height (Inches): 5.00 Weight (Pounds): 110 General Appearance: WD/WN, no apparent distress, alert, thin Cardiovascular: normal rate Respiratory/Chest: normal breath sounds, no respiratory distress Abdominal Exam: normal bowel sounds, non tender, soft Extremities: non-tender David Vieira NP Apr 11, 2019 12:58
--- NOTE | 2019-04-11 14:03 | Pulmonology Progress Note ---
Assessment/Plan Problems: (1) duodeno-cholecytic fistula Assessment & Plan: adrianne drain, small (2) Cholecystitis (3) Cholelithiases (4) Hepatitis (5) Failure to thrive in adult (6) Diabetes mellitus (7) Diverticulitis Assessment/Plan doing better on clear liquid on IV fluids Mg supplement check cultures f/u surgical recommendations mg supplement Subjective ROS Limited/Unobtainable: No Constitutional: Reports: no symptoms HEENT: Repors: no symptoms Respiratory: Reports: no symptoms Allergies: Coded Allergies: No Known Allergies (Unverified , 04/03/17) Objective Last 24 Hour Vital Signs Date Time Temp Pulse Resp B/P (MAP) Pulse Ox O2 Delivery O2 Flow Rate FiO2 04/11/19 13:00 Nasal Cannula 2.0 04/11/19 12:00 98.5 97 17 130/78 (95) 97 04/11/19 09:02 100 139/62 04/11/19 08:00 Room Air 04/11/19 08:00 98.2 100 17 139/62 (87) 100 04/11/19 07:40 86 21 99 Nasal Cannula 2.0 28 04/11/19 07:40 99 Nasal Cannula 2.0 28 04/11/19 04:00 96.6 100 18 143/53 (83) 04/11/19 03:26 Room Air 04/11/19 01:41 Room Air 04/11/19 00:14 162/78 04/11/19 00:01 Room Air 04/11/19 00:00 98.1 93 16 162/73 (102) 100 04/10/19 21:08 Room Air 04/10/19 21:08 Room Air 04/10/19 20:19 77 18 99 Nasal Cannula 2.0 28 04/10/19 20:19 99 Nasal Cannula 2.0 28 04/10/19 20:00 Room Air 04/10/19 20:00 97.9 90 16 150/66 (94) 90 04/10/19 16:00 97.6 89 18 164/65 (98) 100 04/10/19 16:00 Room Air 04/10/19 14:31 163/68 Intake and Output 04/10/19 04/11/19 18:59 06:59 Intake Total 75 ml Output Total 32 ml 60 ml Balance 43 ml -60 ml IV Total 75 ml Drainage Total 32 ml 60 ml # Bowel Movements 4 6 Objective General Appearance: WD/WN HEENT: normocephalic, atraumatic Respiratory/Chest: chest wall non-tender, lungs clear Breasts: no masses Cardiovascular: normal peripheral pulses Abdomen: normal bowel sounds, soft, non tender Genitourinary: normal external genitalia Extremities: no clubbing 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 Lymphatic: no neck adenopathy Laboratory Tests 04/11/19 06:14: White Blood Count 11.4H, Red Blood Count 3.38L, Hemoglobin 9.8L, Hematocrit 29.9L, Mean Corpuscular Volume 88, Mean Corpuscular Hemoglobin 28.9, Mean Corpuscular Hemoglobin Concent 32.7, Red Cell Distribution Width 13.5, Platelet Count 626H, Mean Platelet Volume 4.8L, Neutrophils (%) (Auto) 76.7H, Lymphocytes (%) (Auto) 8.7L, Monocytes (%) (Auto) 8.6, Eosinophils (%) (Auto) 5.1H, Basophils (%) (Auto) 1.0, Sodium Level 133L, Potassium Level 4.8, Chloride Level 98, Carbon Dioxide Level 30, Anion Gap 5, Blood Urea Nitrogen 5L , Creatinine 0.6, Estimat Glomerular Filtration Rate , Glucose Level 119H, Calcium Level 9.4 Current Medications Medications (Trade) Dose Ordered Sig/Lora Route PRN Reason Start Time Stop Time Status Last Admin Dose Admin Acetaminophen (Tylenol) 650 mg Q4H PRN RECTAL FEVER 04/09/19 13:44 05/09/19 13:43 Albuterol/ Ipratropium (Albuterol/ Ipratropium) 3 ml Q4H PRN HHN Shortness of Breath 04/09/19 13:45 04/14/19 13:44 Amlodipine Besylate (Norvasc) 5 mg DAILY ORAL 04/10/19 09:00 05/04/19 08:59 04/11/19 09:02 Dextrose (Dextrose 50%) 25 ml Q30M PRN IV Hypoglycemia 04/09/19 14:00 05/04/19 07:29 Dextrose (Dextrose 50%) 50 ml Q30M PRN IV Hypoglycemia 04/09/19 14:00 05/04/19 07:29 Dextrose/ Electrolytes 1,000 ml @ 75 mls/hr [id number] IV 04/09/19 13:44 05/09/19 13:43 04/11/19 05:29 Diphenhydramine HCl (Benadryl) 12.5 mg Q6H PRN IVP Itching/Pruritis 04/09/19 13:44 05/09/19 13:43 Heparin Sodium (Porcine) (Heparin 5000 units/ml) 5,000 units EVERY 12 HOURS SUBQ 04/09/19 21:00 04/26/19 20:59 04/11/19 09:03 Hydralazine HCl (Apresoline) 20 mg Q4H PRN ORAL For High Blood Pressure 04/10/19 10:45 05/10/19 10:44 04/11/19 00:14 Insulin Aspart (NovoLOG) BEFORE MEALS AND HS SUBQ 04/09/19 16:30 05/04/19 11:29 04/11/19 12:04 Metoclopramide HCl (Reglan) 10 mg Q6H PRN IVP Nausea & Vomiting 04/09/19 13:45 05/09/19 13:44 Morphine Sulfate (Morphine Sulfate) 1 mg Q4H PRN IVP pain scale 1-3 04/09/19 13:45 04/16/19 13:44 Morphine Sulfate (Morphine Sulfate) 2 mg Q4H PRN IVP pain scale 4-6 04/09/19 13:45 04/16/19 13:44 Morphine Sulfate (Morphine Sulfate) 4 mg Q4H PRN IVP pain score 7-10 04/09/19 13:45 04/16/19 13:44 Ondansetron HCl (Zofran) 4 mg Q6H PRN IVP Nausea & Vomiting FIRST CHOICE 04/09/19 13:46 05/09/19 13:45 Dony Eli MD Apr 11, 2019 14:03
--- NOTE | 2019-04-11 15:30 | Infectious Diseases Prog Note ---
Assessment/Plan Assessment/Plan A: 83 yo female with PMHx of DM, HTN and Asthma who presented to the ED on 03/27/19 with 4 days of abdominal pain. Doubt Pneum clinically XR: Right basilar opacity, likely pleural fluid, possibly within the major fissure. Component of infiltrate also possible Leukocytosis ( post Op) Sp Probable cholecystitis (? fistula) Transaminitis improving 04/03 Sp open cholecystectomy with excision of cholecystoduodenal fistula MRI : 04/02 very large gallstones, as described. Relationship of the gallstones to the duodenal lumen is not optimally demonstrated EGD: 04/01 Gastritis, status post biopsy. Possible stone stuck in the duodenal bulb from the gallbladder fistula CT abd 03/27/19 - Severe distention of the gallbladder, wall thickening, secondary to a large intraluminal gallstones. Cholecystitis is suspected. Correlate clinically. 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 There does appear to be some radiotracer filling the extremely distorted gallbladder, but this could be from the bowel connection, rather than the cystic duct. Leukocytosis -mild No Fever DM HTN HLD Asthma Arthritis PLAN - monitor pt off of AB Rx 04/09 SP Zosyn # 14 - f/u Surgery recs - Monitor CBC and temps Subjective Allergies: Coded Allergies: No Known Allergies (Unverified , 04/03/17) Subjective comfortable Objective Vital Signs Last 24 Hour Vital Signs Date Time Temp Pulse Resp B/P (MAP) Pulse Ox O2 Delivery O2 Flow Rate FiO2 04/11/19 13:00 Nasal Cannula 2.0 04/11/19 12:00 98.5 97 17 130/78 (95) 97 04/11/19 09:02 100 139/62 04/11/19 08:00 Room Air 04/11/19 08:00 98.2 100 17 139/62 (87) 100 04/11/19 07:40 86 21 99 Nasal Cannula 2.0 28 04/11/19 07:40 99 Nasal Cannula 2.0 28 04/11/19 04:00 96.6 100 18 143/53 (83) 04/11/19 03:26 Room Air 04/11/19 01:41 Room Air 04/11/19 00:14 162/78 04/11/19 00:01 Room Air 04/11/19 00:00 98.1 93 16 162/73 (102) 100 04/10/19 21:08 Room Air 04/10/19 21:08 Room Air 04/10/19 20:19 77 18 99 Nasal Cannula 2.0 28 04/10/19 20:19 99 Nasal Cannula 2.0 28 04/10/19 20:00 Room Air 04/10/19 20:00 97.9 90 16 150/66 (94) 90 04/10/19 16:00 97.6 89 18 164/65 (98) 100 04/10/19 16:00 Room Air Height (Feet): 4 Height (Inches): 5.00 Weight (Pounds): 110 HEENT: anicteric Respiratory/Chest: no respiratory distress Cardiovascular: normal rate Abdomen: no organomegaly Laboratory Tests Test 04/11/19 06:14 White Blood Count 11.4 K/UL (4.8-10.8) H Red Blood Count 3.38 M/UL (4.20-5.40) L Hemoglobin 9.8 G/DL (12.0-16.0) L Hematocrit 29.9 % (37.0-47.0) L Mean Corpuscular Volume 88 FL (80-99) Mean Corpuscular Hemoglobin 28.9 PG (27.0-31.0) Mean Corpuscular Hemoglobin Concent 32.7 G/DL (32.0-36.0) Red Cell Distribution Width 13.5 % (11.6-14.8) Platelet Count 626 K/UL (150-450) H Mean Platelet Volume 4.8 FL (6.5-10.1) L Neutrophils (%) (Auto) 76.7 % (45.0-75.0) H Lymphocytes (%) (Auto) 8.7 % (20.0-45.0) L Monocytes (%) (Auto) 8.6 % (1.0-10.0) Eosinophils (%) (Auto) 5.1 % (0.0-3.0) H Basophils (%) (Auto) 1.0 % (0.0-2.0) Sodium Level 133 MMOL/L (136-145) L Potassium Level 4.8 MMOL/L (3.5-5.1) Chloride Level 98 MMOL/L (98-107) Carbon Dioxide Level 30 MMOL/L (21-32) Anion Gap 5 mmol/L (5-15) Blood Urea Nitrogen 5 mg/dL (7-18) L Creatinine 0.6 MG/DL (0.55-1.30) Estimat Glomerular Filtration Rate mL/min (>60) Glucose Level 119 MG/DL (74-106) H Calcium Level 9.4 MG/DL (8.5-10.1) Current Medications Medications (Trade) Dose Ordered Sig/Lora Route PRN Reason Start Time Stop Time Status Last Admin Dose Admin Acetaminophen (Tylenol) 650 mg Q4H PRN RECTAL FEVER 04/09/19 13:44 05/09/19 13:43 Albuterol/ Ipratropium (Albuterol/ Ipratropium) 3 ml Q4H PRN HHN Shortness of Breath 04/09/19 13:45 04/14/19 13:44 Amlodipine Besylate (Norvasc) 5 mg DAILY ORAL 04/10/19 09:00 05/04/19 08:59 04/11/19 09:02 Dextrose (Dextrose 50%) 25 ml Q30M PRN IV Hypoglycemia 04/09/19 14:00 05/04/19 07:29 Dextrose (Dextrose 50%) 50 ml Q30M PRN IV Hypoglycemia 04/09/19 14:00 05/04/19 07:29 Dextrose/ Electrolytes 1,000 ml @ 75 mls/hr [id number] IV 04/09/19 13:44 05/09/19 13:43 04/11/19 05:29 Diphenhydramine HCl (Benadryl) 12.5 mg Q6H PRN IVP Itching/Pruritis 04/09/19 13:44 05/09/19 13:43 Heparin Sodium (Porcine) (Heparin 5000 units/ml) 5,000 units EVERY 12 HOURS SUBQ 04/09/19 21:00 04/26/19 20:59 04/11/19 09:03 Hydralazine HCl (Apresoline) 20 mg Q4H PRN ORAL For High Blood Pressure 04/10/19 10:45 05/10/19 10:44 04/11/19 00:14 Insulin Aspart (NovoLOG) BEFORE MEALS AND HS SUBQ 04/09/19 16:30 05/04/19 11:29 04/11/19 12:04 Metoclopramide HCl (Reglan) 10 mg Q6H PRN IVP Nausea & Vomiting 04/09/19 13:45 05/09/19 13:44 Morphine Sulfate (Morphine Sulfate) 1 mg Q4H PRN IVP pain scale 1-3 04/09/19 13:45 04/16/19 13:44 Morphine Sulfate (Morphine Sulfate) 2 mg Q4H PRN IVP pain scale 4-6 04/09/19 13:45 04/16/19 13:44 Morphine Sulfate (Morphine Sulfate) 4 mg Q4H PRN IVP pain score 7-10 04/09/19 13:45 04/16/19 13:44 Ondansetron HCl (Zofran) 4 mg Q6H PRN IVP Nausea & Vomiting FIRST CHOICE 04/09/19 13:46 05/09/19 13:45 Maksim Davis MD Apr 11, 2019 15:30
[2019-04-11 16:00] VITALS: BP 152/86
--- NOTE | 2019-04-11 18:36 | Internal Med Progress Note ---
Subjective Physician Name Logan Camargo Attending Physician Logan Camargo MD Current Medications Medications (Trade) Dose Ordered Sig/Lora Route PRN Reason Start Time Stop Time Status Last Admin Dose Admin Acetaminophen (Tylenol) 650 mg Q4H PRN RECTAL FEVER 04/09/19 13:44 05/09/19 13:43 Albuterol/ Ipratropium (Albuterol/ Ipratropium) 3 ml Q4H PRN HHN Shortness of Breath 04/09/19 13:45 04/14/19 13:44 Amlodipine Besylate (Norvasc) 5 mg DAILY ORAL 04/10/19 09:00 05/04/19 08:59 04/11/19 09:02 Dextrose (Dextrose 50%) 25 ml Q30M PRN IV Hypoglycemia 04/09/19 14:00 05/04/19 07:29 Dextrose (Dextrose 50%) 50 ml Q30M PRN IV Hypoglycemia 04/09/19 14:00 05/04/19 07:29 Dextrose/ Electrolytes 1,000 ml @ 75 mls/hr [id number] IV 04/09/19 13:44 05/09/19 13:43 04/11/19 05:29 Diphenhydramine HCl (Benadryl) 12.5 mg Q6H PRN IVP Itching/Pruritis 04/09/19 13:44 05/09/19 13:43 Heparin Sodium (Porcine) (Heparin 5000 units/ml) 5,000 units EVERY 12 HOURS SUBQ 04/09/19 21:00 04/26/19 20:59 04/11/19 09:03 Hydralazine HCl (Apresoline) 20 mg Q4H PRN ORAL For High Blood Pressure 04/10/19 10:45 05/10/19 10:44 04/11/19 00:14 Insulin Aspart (NovoLOG) BEFORE MEALS AND HS SUBQ 04/09/19 16:30 05/04/19 11:29 04/11/19 16:44 Metoclopramide HCl (Reglan) 10 mg Q6H PRN IVP Nausea & Vomiting 04/09/19 13:45 05/09/19 13:44 Morphine Sulfate (Morphine Sulfate) 1 mg Q4H PRN IVP pain scale 1-3 04/09/19 13:45 04/16/19 13:44 Morphine Sulfate (Morphine Sulfate) 2 mg Q4H PRN IVP pain scale 4-6 04/09/19 13:45 04/16/19 13:44 Morphine Sulfate (Morphine Sulfate) 4 mg Q4H PRN IVP pain score 7-10 04/09/19 13:45 04/16/19 13:44 Ondansetron HCl (Zofran) 4 mg Q6H PRN IVP Nausea & Vomiting FIRST CHOICE 04/09/19 13:46 05/09/19 13:45 Allergies: Coded Allergies: No Known Allergies (Unverified , 04/03/17) Subjective Awake, alert, responsive, denies nausea or vomiting, complain less abdominal pain. Objective Last Vital Signs Date Time Temp Pulse Resp B/P (MAP) Pulse Ox O2 Delivery O2 Flow Rate FiO2 04/11/19 16:00 98.8 89 18 152/86 (108) 98 04/11/19 13:00 Nasal Cannula 2.0 04/11/19 07:40 28 Laboratory Tests Test 04/11/19 06:14 White Blood Count 11.4 K/UL (4.8-10.8) H Red Blood Count 3.38 M/UL (4.20-5.40) L Hemoglobin 9.8 G/DL (12.0-16.0) L Hematocrit 29.9 % (37.0-47.0) L Mean Corpuscular Volume 88 FL (80-99) Mean Corpuscular Hemoglobin 28.9 PG (27.0-31.0) Mean Corpuscular Hemoglobin Concent 32.7 G/DL (32.0-36.0) Red Cell Distribution Width 13.5 % (11.6-14.8) Platelet Count 626 K/UL (150-450) H Mean Platelet Volume 4.8 FL (6.5-10.1) L Neutrophils (%) (Auto) 76.7 % (45.0-75.0) H Lymphocytes (%) (Auto) 8.7 % (20.0-45.0) L Monocytes (%) (Auto) 8.6 % (1.0-10.0) Eosinophils (%) (Auto) 5.1 % (0.0-3.0) H Basophils (%) (Auto) 1.0 % (0.0-2.0) Sodium Level 133 MMOL/L (136-145) L Potassium Level 4.8 MMOL/L (3.5-5.1) Chloride Level 98 MMOL/L (98-107) Carbon Dioxide Level 30 MMOL/L (21-32) Anion Gap 5 mmol/L (5-15) Blood Urea Nitrogen 5 mg/dL (7-18) L Creatinine 0.6 MG/DL (0.55-1.30) Estimat Glomerular Filtration Rate mL/min (>60) Glucose Level 119 MG/DL (74-106) H Calcium Level 9.4 MG/DL (8.5-10.1) Intake and Output 04/10/19 04/11/19 19:00 07:00 Intake Total 75 ml Output Total 32 ml 60 ml Balance 43 ml -60 ml IV Total 75 ml Drainage Total 32 ml 60 ml # Bowel Movements 4 6 Objective General: No acute distress, awake and alert HEENT: NCAT, sclera anicteric, PERRL, EOMI. Neck: Supple, no significant jugular venous distention, Lungs: Good inspiratory effort, clear to auscultation bilaterally, no Wheeze or Rales. Heart: Regular rate and rhythm, normal S1/S2, no murmurs. Abdomen: soft, tender, nondistended. Normoactive bowel sounds, Surgical incising intact. / Rectal: Refused and deferred. Extremities: No Cyanosis , clubbing or edema. Neuro: A&O x 3, Able to move all extremities Skin: warm, no rashes or lesions Psych: Normal mood and affect Assessment/Plan Assessment/Plan ASSESSMENT: This is an 83-year-old female with: 1. Right upper quadrant pain. 2. 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 Cholelithiasis. 4. Elevated liver function tests. 5. Diverticulitis. 6. Diabetes type 2. 7. Hypertension. 8. Hypercholesterolemia. 9. Asthma. TREATMENT: 1. 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 A Gastroenterology consultation has been obtained with Dr. Panda Friedman. 2. Acute cholecystitis/cholelithiasis. A General Surgery consultation has been obtained with Dr. Perez. 3. Elevated liver function tests. Differential includes acute hepatitis secondary to cholelithiasis versus chronic hepatitis. A hepatitis panel is pending. As above, a Gastroenterology consultation has been obtained with Dr. Panda Friedman. 4. Diabetes type 2. The patient has been placed on NovoLog sliding scale. 5. Hypertension. 6. Hypercholesterolemia. Continue simvastatin 20 mg p.o. daily. 7. Asthma. 8. Anemia. Full code, DVT prophylaxis with SCD Abx: Off s/p EGD SUMMARY OF FINDINGS: 1. Hiatal hernia. 2. Gastritis, status post biopsy. 3. Possible stone stuck in the duodenal bulb from the gallbladder fistula. RECOMMENDATIONS: s/p surg, follow up recs >> plan for upper GI contrast study to eval for leak soon. if no leak can start diet slowly Logan Camargo MD Apr 11, 2019 18:36
--- NOTE | 2019-04-11 19:25 | NUR ---
NURSE NOTES: Stool was collected and brought to lab
--- NOTE | 2019-04-11 19:39 | NUR ---
HAND-OFF: Report given to DIMITRIOS Chu.
[2019-04-11 20:00] VITALS: BP 153/78
--- NOTE | 2019-04-11 20:00 | NUR ---
NURSE NOTES: Pt received in bed, aox4, family at bedside.No acute distress at this time. SAMMY drain and hair intact. Denies pain or discomfort. Will continue to monitor.
[2019-04-12] VITALS: BP 159/72
[2019-04-12 04:00] VITALS: BP 152/73
[2019-04-12] MEDS: NovoLOG Insulin Flexpen SUBQ SCH ×4 (05:51→20:36)
[2019-04-12 07:04] LABS: EOSINOPHILS % (AUTO) 5.1 % (0.0-3.0); HEMATOCRIT 29.9 % (37.0-47.0); HEMOGLOBIN 9.7 G/DL (12.0-16.0); MEAN CORPUSCULAR VOLUME 89 FL (80-99); MONOCYTES % (AUTO) 7.4 % (1.0-10.0); NEUTROPHILS % (AUTO) 76.6 % (45.0-75.0); PLATELET COUNT 623 K/UL (150-450); RED BLOOD COUNT 3.37 M/UL (4.20-5.40); RED CELL DISTRIBUTION WIDTH 13.7 % (11.6-14.8); WHITE BLOOD COUNT 10.7 K/UL (4.8-10.8)
[2019-04-12 07:05] LABS: ALANINE AMINOTRANSFERASE 21 U/L (12-78); ALBUMIN 2.1 G/DL (3.4-5.0); ALBUMIN/GLOBULIN RATIO 0.5 (1.0-2.7); ALKALINE PHOSPHATASE 115 U/L (46-116); ANION GAP 5 mmol/L (5-15); ASPARTATE AMINO TRANSFERASE 14 U/L (15-37); BILIRUBIN,TOTAL 0.3 MG/DL (0.2-1.0); BLOOD UREA NITROGEN 5 mg/dL (7-18); CALCIUM 9.6 MG/DL (8.5-10.1); CARBON DIOXIDE 29 MMOL/L (21-32); CHLORIDE 100 MMOL/L (98-107); CREATININE 0.6 MG/DL (0.55-1.30); POTASSIUM 4.7 MMOL/L (3.5-5.1); SODIUM 134 MMOL/L (136-145)
--- NOTE | 2019-04-12 07:20 | NUR ---
HAND-OFF: Report given to Alvarado PLUNKETT.
--- NOTE | 2019-04-12 07:28 | Pulmonology Progress Note ---
Assessment/Plan Problems: (1) duodeno-cholecytic fistula Assessment & Plan: adrianne drain, small (2) Cholecystitis (3) Cholelithiases (4) Hepatitis (5) Failure to thrive in adult (6) Diabetes mellitus (7) Diverticulitis Assessment/Plan doing better on clear liquid on IV fluids Mg supplement check cultures f/u surgical recommendations mg supplement Subjective ROS Limited/Unobtainable: No Constitutional: Reports: no symptoms HEENT: Repors: no symptoms Respiratory: Reports: no symptoms Allergies: Coded Allergies: No Known Allergies (Unverified , 04/03/17) Objective Last 24 Hour Vital Signs Date Time Temp Pulse Resp B/P (MAP) Pulse Ox O2 Delivery O2 Flow Rate FiO2 04/12/19 04:00 97.7 94 16 152/73 (99) 100 04/12/19 00:00 98.1 97 16 159/72 (101) 100 04/11/19 21:00 Nasal Cannula 2.0 04/11/19 20:00 97.9 92 16 153/78 (103) 100 04/11/19 16:00 98.8 89 18 152/86 (108) 98 04/11/19 13:00 Nasal Cannula 2.0 04/11/19 12:00 98.5 97 17 130/78 (95) 97 04/11/19 09:02 100 139/62 04/11/19 08:00 Room Air 04/11/19 08:00 98.2 100 17 139/62 (87) 100 04/11/19 07:40 86 21 99 Nasal Cannula 2.0 28 04/11/19 07:40 99 Nasal Cannula 2.0 28 Intake and Output 04/11/19 04/12/19 19:00 07:00 Intake Total 675 ml 820 ml Output Total 300 ml 1280 ml Balance 375 ml -460 ml Intake Oral 300 ml IV Total 375 ml 820 ml Output Urine Total 300 ml 1200 ml Drainage Total 80 ml # Bowel Movements 4 2 Objective General Appearance: WD/WN HEENT: normocephalic, atraumatic Respiratory/Chest: chest wall non-tender, lungs clear Breasts: no masses Cardiovascular: normal peripheral pulses Abdomen: normal bowel sounds, soft, non tender Genitourinary: normal external genitalia Extremities: no clubbing Neurologic/Psychiatric: solar consultant II-XII grossly normal Lymphatic: no neck adenopathy Microbiology Date/Time Source Procedure Growth Status 04/11/19 19:06 Stool Clostridium difficile Toxin Assay - Final Complete Laboratory Tests 04/12/19 05:20: White Blood Count 10.7, Red Blood Count 3.37L, Hemoglobin 9.7L, Hematocrit 29.9L , Mean Corpuscular Volume 89, Mean Corpuscular Hemoglobin 28.9, Mean Corpuscular Hemoglobin Concent 32.5, Red Cell Distribution Width 13.7, Platelet Count 623H, Mean Platelet Volume 4.2L, Neutrophils (%) (Auto) 76.6H, Lymphocytes (%) (Auto) 10.0L, Monocytes (%) (Auto) 7.4, Eosinophils (%) (Auto) 5.1H, Basophils (%) (Auto) 1.0, Erythrocyte Sedimentation Rate [Pending], Sodium Level 134L, Potassium Level 4.7, Chloride Level 100, Carbon Dioxide Level 29, Anion Gap 5, Blood Urea Nitrogen 5L, Creatinine 0.6, Estimat Glomerular Filtration Rate , Glucose Level 147H, Calcium Level 9.6, Total Bilirubin 0.3, Aspartate Amino Transf (AST/SGOT) 14L, Alanine Aminotransferase ( ALT/SGPT) 21, Alkaline Phosphatase 115, C-Reactive Protein, Quantitative 4.1H, Total Protein 6.3L, Albumin 2.1L, Globulin 4.2, Albumin/Globulin Ratio 0.5L Current Medications Medications (Trade) Dose Ordered Sig/Lora Route PRN Reason Start Time Stop Time Status Last Admin Dose Admin Acetaminophen (Tylenol) 650 mg Q4H PRN RECTAL FEVER 04/09/19 13:44 05/09/19 13:43 Albuterol/ Ipratropium (Albuterol/ Ipratropium) 3 ml Q4H PRN HHN Shortness of Breath 04/09/19 13:45 04/14/19 13:44 Amlodipine Besylate (Norvasc) 5 mg DAILY ORAL 04/10/19 09:00 05/04/19 08:59 04/11/19 09:02 Dextrose (Dextrose 50%) 25 ml Q30M PRN IV Hypoglycemia 04/09/19 14:00 05/04/19 07:29 Dextrose (Dextrose 50%) 50 ml Q30M PRN IV Hypoglycemia 04/09/19 14:00 05/04/19 07:29 Dextrose/ Electrolytes 1,000 ml @ 75 mls/hr [id number] IV 04/09/19 13:44 05/09/19 13:43 04/11/19 20:55 Diphenhydramine HCl (Benadryl) 12.5 mg Q6H PRN IVP Itching/Pruritis 04/09/19 13:44 05/09/19 13:43 Heparin Sodium (Porcine) (Heparin 5000 units/ml) 5,000 units EVERY 12 HOURS SUBQ 04/09/19 21:00 04/26/19 20:59 04/11/19 20:57 Hydralazine HCl (Apresoline) 20 mg Q4H PRN ORAL For High Blood Pressure 04/10/19 10:45 05/10/19 10:44 04/11/19 00:14 Insulin Aspart (NovoLOG) BEFORE MEALS AND HS SUBQ 04/09/19 16:30 05/04/19 11:29 04/12/19 05:51 Metoclopramide HCl (Reglan) 10 mg Q6H PRN IVP Nausea & Vomiting 04/09/19 13:45 05/09/19 13:44 Morphine Sulfate (Morphine Sulfate) 1 mg Q4H PRN IVP pain scale 1-3 04/09/19 13:45 04/16/19 13:44 Morphine Sulfate (Morphine Sulfate) 2 mg Q4H PRN IVP pain scale 4-6 04/09/19 13:45 04/16/19 13:44 Morphine Sulfate (Morphine Sulfate) 4 mg Q4H PRN IVP pain score 7-10 04/09/19 13:45 04/16/19 13:44 Ondansetron HCl (Zofran) 4 mg Q6H PRN IVP Nausea & Vomiting FIRST CHOICE 04/09/19 13:46 05/09/19 13:45 Dony Eli MD Apr 12, 2019 07:28
--- NOTE | 2019-04-12 07:43 | NUR ---
NURSE NOTES: received report from DIMITRIOS Chu. patient in bed. sleeping. no respiratory distress noted on 2l via NC. no facial grimacing noted. IV on Lwrist 24. running fluid. Marcio tune draining serosanguineous. bed in the lowest position. call light within reach. will continue to provide plan of care.
[2019-04-12 08:00] VITALS: BP 139/62
[2019-04-12] MEDS: D5 1/2NS w/KCl 20mEq 1,000 ML IV SCH ×2 (08:41→14:12)
[2019-04-12] MEDS: Heparin 5000 units/ml inj SUBQ SCH ×2 (08:42→20:35)
[2019-04-12 12:00] VITALS: BP 159/67
--- NOTE | 2019-04-12 13:21 | Surgery Progress Note ---
Surgery Progress Note Subjective Procedure Performed 1. diagnostic laparoscopic 2. 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 distal gastrectomy and closure of duodenal stump - B1 4. retrocolic anterior gastrojejunostomy 5. partial omentectomy 6. abdominal drain placement Additional Comments Improving. Tolerating some diet. Having diarrhea. Labs improved. Objective Last 24 Hour Vital Signs Date Time Temp Pulse Resp B/P (MAP) Pulse Ox O2 Delivery O2 Flow Rate FiO2 04/12/19 12:00 98.0 86 19 159/67 (97) 100 04/12/19 11:05 98 20 99 Nasal Cannula 2.0 28 04/12/19 11:05 99 Nasal Cannula 2.0 28 04/12/19 09:00 Nasal Cannula 2.0 04/12/19 08:41 101 139/62 04/12/19 08:00 97.7 101 19 139/62 (87) 100 04/12/19 04:00 97.7 94 16 152/73 (99) 100 04/12/19 00:00 98.1 97 16 159/72 (101) 100 04/11/19 21:00 Nasal Cannula 2.0 04/11/19 20:00 97.9 92 16 153/78 (103) 100 04/11/19 16:00 98.8 89 18 152/86 (108) 98 I&O Intake and Output 04/11/19 04/12/19 19:00 07:00 Intake Total 675 ml 820 ml Output Total 300 ml 1280 ml Balance 375 ml -460 ml Intake Oral 300 ml IV Total 375 ml 820 ml Output Urine Total 300 ml 1200 ml Drainage Total 80 ml # Bowel Movements 4 2 Dressing: dry Wound: clean Drains: justin Cardiovascular: RSR Respiratory: clear Abdomen: soft, flat, non-tender, present bowel sounds Extremities: no edema, no tenderness, no cyanosis Laboratory Tests Test 04/12/19 05:20 White Blood Count 10.7 K/UL (4.8-10.8) Red Blood Count 3.37 M/UL (4.20-5.40) L Hemoglobin 9.7 G/DL (12.0-16.0) L Hematocrit 29.9 % (37.0-47.0) L Mean Corpuscular Volume 89 FL (80-99) Mean Corpuscular Hemoglobin 28.9 PG (27.0-31.0) Mean Corpuscular Hemoglobin Concent 32.5 G/DL (32.0-36.0) Red Cell Distribution Width 13.7 % (11.6-14.8) Platelet Count 623 K/UL (150-450) H Mean Platelet Volume 4.2 FL (6.5-10.1) L Neutrophils (%) (Auto) 76.6 % (45.0-75.0) H Lymphocytes (%) (Auto) 10.0 % (20.0-45.0) L Monocytes (%) (Auto) 7.4 % (1.0-10.0) Eosinophils (%) (Auto) 5.1 % (0.0-3.0) H Basophils (%) (Auto) 1.0 % (0.0-2.0) Erythrocyte Sedimentation Rate 89 MM/HR (0-30) H Sodium Level 134 MMOL/L (136-145) L Potassium Level 4.7 MMOL/L (3.5-5.1) Chloride Level 100 MMOL/L (98-107) Carbon Dioxide Level 29 MMOL/L (21-32) Anion Gap 5 mmol/L (5-15) Blood Urea Nitrogen 5 mg/dL (7-18) L Creatinine 0.6 MG/DL (0.55-1.30) Estimat Glomerular Filtration Rate mL/min (>60) Glucose Level 147 MG/DL (74-106) H Calcium Level 9.6 MG/DL (8.5-10.1) Total Bilirubin 0.3 MG/DL (0.2-1.0) Aspartate Amino Transf (AST/SGOT) 14 U/L (15-37) L Alanine Aminotransferase (ALT/SGPT) 21 U/L (12-78) Alkaline Phosphatase 115 U/L (46-116) C-Reactive Protein, Quantitative 4.1 mg/dL (0.00-0.90) H Total Protein 6.3 G/DL (6.4-8.2) L Albumin 2.1 G/DL (3.4-5.0) L Globulin 4.2 g/dL Albumin/Globulin Ratio 0.5 (1.0-2.7) L Assessment Post-op Diagnosis 1. acute cholecystitis 2. cholecytoduodenal fistula with impacted stone which has eroded into the first portion of the duodenum Plan Problems: (1) Cholecystitis Assessment & Plan: s/p ex lap, b2, brennen, recovering labs noted exam stable drains okay wound okay Soft diet Increase iv fluids trend labs ambulate and out of bed Alexandro Perez Apr 12, 2019 13:21
[2019-04-12] MEDS ORDERED: Tubing IV Secondary IV ONE (13:53)
[2019-04-12] MEDS ORDERED: NS 275ml ONE (13:53)
[2019-04-12 16:00] VITALS: BP 148/65
--- NOTE | 2019-04-12 17:45 | Internal Med Progress Note ---
Subjective Date of Service: Apr 12, 2019 Physician Name Isaías Atwood Attending Physician Logan Camargo MD Current Medications Medications (Trade) Dose Ordered Sig/Lora Route PRN Reason Start Time Stop Time Status Last Admin Dose Admin Acetaminophen (Tylenol) 650 mg Q4H PRN RECTAL FEVER 04/09/19 13:44 05/09/19 13:43 Albuterol/ Ipratropium (Albuterol/ Ipratropium) 3 ml Q4H PRN HHN Shortness of Breath 04/09/19 13:45 04/14/19 13:44 Amlodipine Besylate (Norvasc) 5 mg DAILY ORAL 04/10/19 09:00 05/04/19 08:59 04/12/19 08:41 Dextrose (Dextrose 50%) 25 ml Q30M PRN IV Hypoglycemia 04/09/19 14:00 05/04/19 07:29 Dextrose (Dextrose 50%) 50 ml Q30M PRN IV Hypoglycemia 04/09/19 14:00 05/04/19 07:29 Dextrose/ Electrolytes 1,000 ml @ 25 mls/hr Q24H IV 04/12/19 13:45 05/12/19 13:44 04/12/19 14:12 Diphenhydramine HCl (Benadryl) 12.5 mg Q6H PRN IVP Itching/Pruritis 04/09/19 13:44 05/09/19 13:43 Heparin Sodium (Porcine) (Heparin 5000 units/ml) 5,000 units EVERY 12 HOURS SUBQ 04/09/19 21:00 04/26/19 20:59 04/12/19 08:42 Hydralazine HCl (Apresoline) 20 mg Q4H PRN ORAL For High Blood Pressure 04/10/19 10:45 05/10/19 10:44 04/11/19 00:14 Insulin Aspart (NovoLOG) BEFORE MEALS AND HS SUBQ 04/09/19 16:30 05/04/19 11:29 04/12/19 17:04 Metoclopramide HCl (Reglan) 10 mg Q6H PRN IVP Nausea & Vomiting 04/09/19 13:45 05/09/19 13:44 Morphine Sulfate (Morphine Sulfate) 1 mg Q4H PRN IVP pain scale 1-3 04/09/19 13:45 04/16/19 13:44 Morphine Sulfate (Morphine Sulfate) 2 mg Q4H PRN IVP pain scale 4-6 04/09/19 13:45 04/16/19 13:44 Morphine Sulfate (Morphine Sulfate) 4 mg Q4H PRN IVP pain score 7-10 04/09/19 13:45 04/16/19 13:44 Ondansetron HCl (Zofran) 4 mg Q6H PRN IVP Nausea & Vomiting FIRST CHOICE 04/09/19 13:46 05/09/19 13:45 Allergies: Coded Allergies: No Known Allergies (Unverified , 04/03/17) ROS Limited/Unobtainable: No Constitutional: Reports: no symptoms HEENT: Reports: no symptoms Cardiovascular: Reports: no symptoms Respiratory: Reports: no symptoms Gastrointestinal/Abdominal: Reports: abdominal pain Genitourinary: Reports: no symptoms Neurologic/Psychiatric: Reports: no symptoms Subjective 83 YO F admitted with right upper quadrant pain. Now acute cholecystitis and cholelithiasis. Cover for Int Med-Dr Camargo. 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 Objective Last Vital Signs Date Time Temp Pulse Resp B/P (MAP) Pulse Ox O2 Delivery O2 Flow Rate FiO2 04/12/19 16:00 98.2 102 20 148/65 (92) 100 04/12/19 11:05 Nasal Cannula 2.0 28 Laboratory Tests Test 04/12/19 05:20 White Blood Count 10.7 K/UL (4.8-10.8) Red Blood Count 3.37 M/UL (4.20-5.40) L Hemoglobin 9.7 G/DL (12.0-16.0) L Hematocrit 29.9 % (37.0-47.0) L Mean Corpuscular Volume 89 FL (80-99) Mean Corpuscular Hemoglobin 28.9 PG (27.0-31.0) Mean Corpuscular Hemoglobin Concent 32.5 G/DL (32.0-36.0) Red Cell Distribution Width 13.7 % (11.6-14.8) Platelet Count 623 K/UL (150-450) H Mean Platelet Volume 4.2 FL (6.5-10.1) L Neutrophils (%) (Auto) 76.6 % (45.0-75.0) H Lymphocytes (%) (Auto) 10.0 % (20.0-45.0) L Monocytes (%) (Auto) 7.4 % (1.0-10.0) Eosinophils (%) (Auto) 5.1 % (0.0-3.0) H Basophils (%) (Auto) 1.0 % (0.0-2.0) Erythrocyte Sedimentation Rate 89 MM/HR (0-30) H Sodium Level 134 MMOL/L (136-145) L Potassium Level 4.7 MMOL/L (3.5-5.1) Chloride Level 100 MMOL/L (98-107) Carbon Dioxide Level 29 MMOL/L (21-32) Anion Gap 5 mmol/L (5-15) Blood Urea Nitrogen 5 mg/dL (7-18) L Creatinine 0.6 MG/DL (0.55-1.30) Estimat Glomerular Filtration Rate mL/min (>60) Glucose Level 147 MG/DL (74-106) H Calcium Level 9.6 MG/DL (8.5-10.1) Total Bilirubin 0.3 MG/DL (0.2-1.0) Aspartate Amino Transf (AST/SGOT) 14 U/L (15-37) L Alanine Aminotransferase (ALT/SGPT) 21 U/L (12-78) Alkaline Phosphatase 115 U/L (46-116) C-Reactive Protein, Quantitative 4.1 mg/dL (0.00-0.90) H Total Protein 6.3 G/DL (6.4-8.2) L Albumin 2.1 G/DL (3.4-5.0) L Globulin 4.2 g/dL Albumin/Globulin Ratio 0.5 (1.0-2.7) L Microbiology Date/Time Source Procedure Growth Status 04/11/19 19:06 Stool Clostridium difficile Toxin Assay - Final Complete Intake and Output 04/11/19 04/12/19 18:59 06:59 Intake Total 600 ml 895 ml Output Total 300 ml 1280 ml Balance 300 ml -385 ml Intake Oral 300 ml IV Total 300 ml 895 ml Output Urine Total 300 ml 1200 ml Drainage Total 80 ml # Bowel Movements 4 2 Objective PHYSICAL EXAMINATION: GENERAL: The patient is a well-developed and well-nourished female, in no apparent distress. HEENT: Eyes, pupils are equal and responsive to light and accommodation. Extraocular movements are intact. NECK: Supple without lymphadenopathy. CHEST: Lungs are clear to auscultation bilaterally without wheezes or rales. CARDIOVASCULAR: Regular rhythm and rate. S1, S2 normal without murmurs, rubs, or gallops. ABDOMEN: Soft, nondistended with decreased bowel sounds. There is pain to palpation to right upper quadrant. No evidence of rebound or guarding noted. EXTREMITIES: Negative for clubbing, cyanosis, or edema. RECTAL/GENITAL: Not performed. NEUROLOGIC: Cranial nerves II through XII are grossly intact without focal deficits. Motor strength is 5/5 bilaterally. Deep tendon reflexes are 2+ plantar. Assessment/Plan Assessment/Plan ASSESSMENT: This is an 83-year-old female with: 1. Right upper quadrant pain. 2. Acute cholecystitis. 3. Cholelithiasis. 4. Elevated liver function tests. 5. Diverticulitis. 6. Diabetes type 2. 7. Hypertension. 8. Hypercholesterolemia. 9. Asthma. 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 Occult pos stool 12. Leukocytosis TREATMENT: 1. Right upper quadrant pain/diverticulitis. A Gastroenterology consultation has been obtained with Dr. Panda Friedman. 2. Acute cholecystitis/cholelithiasis. 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 S/P endoscopy 04/01/19= large stone in duodenem and tricia-duodenal fistula A General Surgery consultation has been obtained with Dr. Perez. The patient has been started empirically on intravenous ciprofloxacin and metronidazole. Surgery date is pending 3. Elevated liver function tests. Improving. As above, a Gastroenterology consultation has been obtained with Dr. Panda Friedman. Possible colonoscopy and endoscopy for occult blood source 4. Diabetes type 2. The patient has been placed on NovoLog sliding scale. 5. Hypertension. The patient is currently hypotensive. Hold amlodipine above. 6. Hypercholesterolemia. Continue simvastatin 20 mg p.o. daily. 7. Asthma. 8. 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 Advance to clear liq diet 10. ABX=zosyn per ID= Isaías Winchester MD Apr 12, 2019 17:45
--- NOTE | 2019-04-12 19:27 | NUR ---
HAND-OFF: Report given to DIMITRIOS Chu.
[2019-04-12 20:00] VITALS: BP 139/59
--- NOTE | 2019-04-12 20:00 | NUR ---
NURSE NOTES: Patient received in bed, awake and alert. SAMMY drain intact. Abdomen hair intact. Pt Placed on bed alexander, patient continues to have watery diarrhea. No other complaints. Call light in reach. Will monitor.
[2019-04-13] VITALS: BP 137/60
[2019-04-13 04:00] VITALS: BP 134/61
[2019-04-13] MEDS: NovoLOG Insulin Flexpen SUBQ SCH ×4 (06:01→20:57)
[2019-04-13 07:25] LABS: ANION GAP 4 mmol/L (5-15); BLOOD UREA NITROGEN 5 mg/dL (7-18); CALCIUM 9.4 MG/DL (8.5-10.1); CARBON DIOXIDE 30 MMOL/L (21-32); CHLORIDE 100 MMOL/L (98-107); CREATININE 0.6 MG/DL (0.55-1.30); SODIUM 134 MMOL/L (136-145)
--- NOTE | 2019-04-13 07:25 | NUR ---
HAND-OFF: Report given to Alvarado PLUNKETT.
[2019-04-13 07:34] LABS: BASOPHILS % (AUTO) 0.8 % (0.0-2.0); EOSINOPHILS % (AUTO) 3.7 % (0.0-3.0); HEMOGLOBIN 9.5 G/DL (12.0-16.0); LYMPHOCYTES % (AUTO) 10.2 % (20.0-45.0); MEAN CORPUSCULAR VOLUME 88 FL (80-99); MONOCYTES % (AUTO) 8.1 % (1.0-10.0); NEUTROPHILS % (AUTO) 77.2 % (45.0-75.0); PLATELET COUNT 679 K/UL (150-450); RED BLOOD COUNT 3.28 M/UL (4.20-5.40); RED CELL DISTRIBUTION WIDTH 13.6 % (11.6-14.8); WHITE BLOOD COUNT 9.7 K/UL (4.8-10.8)
--- NOTE | 2019-04-13 07:35 | NUR ---
NURSE NOTES: received report from DIMITRIOS Chu. patient in bed, alert. oriented. verbally responsive. no respiratory distress noted on 2l via NC. no pain at this time. IV RH 22 running D51/[id number]@25 SAMMY tube draining with serosanguineous drainage. surgical site with hair on rt abd. intact. no s/sx of infection. bed in the lowest position. call light within reach. will continue to provide plan of care.
[2019-04-13 08:00] VITALS: BP 137/51
[2019-04-13] MEDS: Heparin 5000 units/ml inj SUBQ SCH ×2 (09:19→20:54)
[2019-04-13 12:00] VITALS: BP 143/64
[2019-04-13] MEDS ORDERED: NS 275ml ONE (12:02)
--- NOTE | 2019-04-13 12:08 | Infectious Diseases Prog Note ---
Assessment/Plan Assessment/Plan 83 yo female with PMHx of DM, HTN and Asthma who presented to the ED on 03/27/19 with 4 days of abdominal pain. Doubt Pneum clinically XR: Right basilar opacity, likely pleural fluid, possibly within the major fissure. Component of infiltrate also possible Leukocytosis ( post Op) Sp Probable cholecystitis (? fistula) Transaminitis improving 04/03 Sp open cholecystectomy with excision of cholecystoduodenal fistula MRI : 04/02 very large gallstones, as described. Relationship of the gallstones to the duodenal lumen is not optimally demonstrated EGD: 04/01 Gastritis, status post biopsy. Possible stone stuck in the duodenal bulb from the gallbladder fistula CT abd 03/27/19 - Severe distention of the gallbladder, wall thickening, secondary to a large intraluminal gallstones. Cholecystitis is suspected. Correlate clinically. 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 There does appear to be some radiotracer filling the extremely distorted gallbladder, but this could be from the bowel connection, rather than the cystic duct. Leukocytosis -mild No Fever DM HTN HLD Asthma Arthritis PLAN - Continue to monitor pt off of AB Rx 04/09 SP Zosyn # 14 - f/u Surgery recs - Monitor CBC and temps Subjective Allergies: Coded Allergies: No Known Allergies (Unverified , 04/03/17) Subjective Afebrile No Leukocytosis Objective Vital Signs Last 24 Hour Vital Signs Date Time Temp Pulse Resp B/P (MAP) Pulse Ox O2 Delivery O2 Flow Rate FiO2 04/13/19 09:18 101 137/51 04/13/19 09:00 Nasal Cannula 2.0 04/13/19 08:00 97.5 101 21 137/51 (79) 98 04/13/19 07:40 97 Nasal Cannula 2.0 28 04/13/19 07:40 88 20 97 Nasal Cannula 2.0 28 04/13/19 04:00 98.2 105 18 134/61 (85) 100 04/13/19 00:00 99.1 99 18 137/60 (85) 99 04/12/19 21:00 Nasal Cannula 2.0 04/12/19 20:00 98.2 98 20 139/59 (85) 100 04/12/19 20:00 92 20 97 Nasal Cannula 2.0 28 04/12/19 20:00 98 Nasal Cannula 2.0 28 04/12/19 16:00 98.2 102 20 148/65 (92) 100 Height (Feet): 4 Height (Inches): 5.00 Weight (Pounds): 110 Objective Gen: NAD, Satting well HEENT: NCAT, MMM, EOMI LUNGS: CTAB, No W CARDS: RRR, S1, S2 ABD: Soft, NT, ND Microbiology Date/Time Source Procedure Growth Status 04/11/19 19:06 Stool Clostridium difficile Toxin Assay - Final Complete Laboratory Tests Test 04/13/19 06:46 White Blood Count 9.7 K/UL (4.8-10.8) Red Blood Count 3.28 M/UL (4.20-5.40) L Hemoglobin 9.5 G/DL (12.0-16.0) L Hematocrit 29.0 % (37.0-47.0) L Mean Corpuscular Volume 88 FL (80-99) Mean Corpuscular Hemoglobin 29.0 PG (27.0-31.0) Mean Corpuscular Hemoglobin Concent 32.9 G/DL (32.0-36.0) Red Cell Distribution Width 13.6 % (11.6-14.8) Platelet Count 679 K/UL (150-450) H Mean Platelet Volume 4.6 FL (6.5-10.1) L Neutrophils (%) (Auto) 77.2 % (45.0-75.0) H Lymphocytes (%) (Auto) 10.2 % (20.0-45.0) L Monocytes (%) (Auto) 8.1 % (1.0-10.0) Eosinophils (%) (Auto) 3.7 % (0.0-3.0) H Basophils (%) (Auto) 0.8 % (0.0-2.0) Sodium Level 134 MMOL/L (136-145) L Potassium Level 4.0 MMOL/L (3.5-5.1) Chloride Level 100 MMOL/L (98-107) Carbon Dioxide Level 30 MMOL/L (21-32) Anion Gap 4 mmol/L (5-15) L Blood Urea Nitrogen 5 mg/dL (7-18) L Creatinine 0.6 MG/DL (0.55-1.30) Estimat Glomerular Filtration Rate mL/min (>60) Glucose Level 117 MG/DL (74-106) H Calcium Level 9.4 MG/DL (8.5-10.1) Current Medications Medications (Trade) Dose Ordered Sig/Lora Route PRN Reason Start Time Stop Time Status Last Admin Dose Admin Acetaminophen (Tylenol) 650 mg Q4H PRN RECTAL FEVER 04/09/19 13:44 05/09/19 13:43 Albuterol/ Ipratropium (Albuterol/ Ipratropium) 3 ml Q4H PRN HHN Shortness of Breath 04/13/19 13:45 04/18/19 13:44 Amlodipine Besylate (Norvasc) 5 mg DAILY ORAL 04/10/19 09:00 05/04/19 08:59 04/13/19 09:18 Dextrose (Dextrose 50%) 25 ml Q30M PRN IV Hypoglycemia 04/09/19 14:00 05/04/19 07:29 Dextrose (Dextrose 50%) 50 ml Q30M PRN IV Hypoglycemia 04/09/19 14:00 05/04/19 07:29 Dextrose/ Electrolytes 1,000 ml @ 25 mls/hr Q24H IV 04/12/19 13:45 05/12/19 13:44 04/12/19 14:12 Diphenhydramine HCl (Benadryl) 12.5 mg Q6H PRN IVP Itching/Pruritis 04/09/19 13:44 05/09/19 13:43 Heparin Sodium (Porcine) (Heparin 5000 units/ml) 5,000 units EVERY 12 HOURS SUBQ 04/09/19 21:00 04/26/19 20:59 04/13/19 09:19 Hydralazine HCl (Apresoline) 20 mg Q4H PRN ORAL For High Blood Pressure 04/10/19 10:45 05/10/19 10:44 04/11/19 00:14 Insulin Aspart (NovoLOG) BEFORE MEALS AND HS SUBQ 04/09/19 16:30 05/04/19 11:29 04/13/19 06:01 Metoclopramide HCl (Reglan) 10 mg Q6H PRN IVP Nausea & Vomiting 04/09/19 13:45 05/09/19 13:44 Morphine Sulfate (Morphine Sulfate) 1 mg Q4H PRN IVP pain scale 1-3 04/09/19 13:45 04/16/19 13:44 Morphine Sulfate (Morphine Sulfate) 2 mg Q4H PRN IVP pain scale 4-6 04/09/19 13:45 04/16/19 13:44 Morphine Sulfate (Morphine Sulfate) 4 mg Q4H PRN IVP pain score 7-10 04/09/19 13:45 04/16/19 13:44 Ondansetron HCl (Zofran) 4 mg Q6H PRN IVP Nausea & Vomiting FIRST CHOICE 04/09/19 13:46 05/09/19 13:45 Michael Alvarenga MD Apr 13, 2019 12:08
[2019-04-13] MEDS ORDERED: Albuterol/Ipratropium 3ml neb HHN PRN (13:45)
[2019-04-13] MEDS: D5 1/2NS w/KCl 20mEq 1,000 ML IV SCH (14:00)
--- NOTE | 2019-04-13 15:24 | Internal Med Progress Note ---
Subjective Date of Service: Apr 13, 2019 Physician Name Isaías Atwood Attending Physician Logan Camargo MD Current Medications Medications (Trade) Dose Ordered Sig/Lora Route PRN Reason Start Time Stop Time Status Last Admin Dose Admin Acetaminophen (Tylenol) 650 mg Q4H PRN RECTAL FEVER 04/09/19 13:44 05/09/19 13:43 Albuterol/ Ipratropium (Albuterol/ Ipratropium) 3 ml Q4H PRN HHN Shortness of Breath 04/13/19 13:45 04/18/19 13:44 Amlodipine Besylate (Norvasc) 5 mg DAILY ORAL 04/10/19 09:00 05/04/19 08:59 04/13/19 09:18 Dextrose (Dextrose 50%) 25 ml Q30M PRN IV Hypoglycemia 04/09/19 14:00 05/04/19 07:29 Dextrose (Dextrose 50%) 50 ml Q30M PRN IV Hypoglycemia 04/09/19 14:00 05/04/19 07:29 Dextrose/ Electrolytes 1,000 ml @ 25 mls/hr Q24H IV 04/12/19 13:45 05/12/19 13:44 04/13/19 14:00 Diphenhydramine HCl (Benadryl) 12.5 mg Q6H PRN IVP Itching/Pruritis 04/09/19 13:44 05/09/19 13:43 Heparin Sodium (Porcine) (Heparin 5000 units/ml) 5,000 units EVERY 12 HOURS SUBQ 04/09/19 21:00 04/26/19 20:59 04/13/19 09:19 Hydralazine HCl (Apresoline) 20 mg Q4H PRN ORAL For High Blood Pressure 04/10/19 10:45 05/10/19 10:44 04/11/19 00:14 Insulin Aspart (NovoLOG) BEFORE MEALS AND HS SUBQ 04/09/19 16:30 05/04/19 11:29 04/13/19 12:25 Metoclopramide HCl (Reglan) 10 mg Q6H PRN IVP Nausea & Vomiting 04/09/19 13:45 05/09/19 13:44 Morphine Sulfate (Morphine Sulfate) 1 mg Q4H PRN IVP pain scale 1-3 04/09/19 13:45 04/16/19 13:44 Morphine Sulfate (Morphine Sulfate) 2 mg Q4H PRN IVP pain scale 4-6 04/09/19 13:45 04/16/19 13:44 Morphine Sulfate (Morphine Sulfate) 4 mg Q4H PRN IVP pain score 7-10 04/09/19 13:45 04/16/19 13:44 Ondansetron HCl (Zofran) 4 mg Q6H PRN IVP Nausea & Vomiting FIRST CHOICE 04/09/19 13:46 05/09/19 13:45 Allergies: Coded Allergies: No Known Allergies (Unverified , 04/03/17) ROS Limited/Unobtainable: No Constitutional: Reports: no symptoms HEENT: Reports: no symptoms Cardiovascular: Reports: no symptoms Respiratory: Reports: no symptoms Gastrointestinal/Abdominal: Reports: no symptoms Genitourinary: Reports: no symptoms Neurologic/Psychiatric: Reports: no symptoms Subjective 83 YO F admitted with right upper quadrant pain. Now acute cholecystitis and cholelithiasis. Cover for Int Med-Dr Camargo. 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 Objective Last Vital Signs Date Time Temp Pulse Resp B/P (MAP) Pulse Ox O2 Delivery O2 Flow Rate FiO2 04/13/19 12:00 97.9 94 18 143/64 (90) 97 04/13/19 09:00 Nasal Cannula 2.0 04/13/19 07:40 28 Laboratory Tests Test 04/13/19 06:46 White Blood Count 9.7 K/UL (4.8-10.8) Red Blood Count 3.28 M/UL (4.20-5.40) L Hemoglobin 9.5 G/DL (12.0-16.0) L Hematocrit 29.0 % (37.0-47.0) L Mean Corpuscular Volume 88 FL (80-99) Mean Corpuscular Hemoglobin 29.0 PG (27.0-31.0) Mean Corpuscular Hemoglobin Concent 32.9 G/DL (32.0-36.0) Red Cell Distribution Width 13.6 % (11.6-14.8) Platelet Count 679 K/UL (150-450) H Mean Platelet Volume 4.6 FL (6.5-10.1) L Neutrophils (%) (Auto) 77.2 % (45.0-75.0) H Lymphocytes (%) (Auto) 10.2 % (20.0-45.0) L Monocytes (%) (Auto) 8.1 % (1.0-10.0) Eosinophils (%) (Auto) 3.7 % (0.0-3.0) H Basophils (%) (Auto) 0.8 % (0.0-2.0) Sodium Level 134 MMOL/L (136-145) L Potassium Level 4.0 MMOL/L (3.5-5.1) Chloride Level 100 MMOL/L (98-107) Carbon Dioxide Level 30 MMOL/L (21-32) Anion Gap 4 mmol/L (5-15) L Blood Urea Nitrogen 5 mg/dL (7-18) L Creatinine 0.6 MG/DL (0.55-1.30) Estimat Glomerular Filtration Rate mL/min (>60) Glucose Level 117 MG/DL (74-106) H Calcium Level 9.4 MG/DL (8.5-10.1) Microbiology Date/Time Source Procedure Growth Status 04/11/19 19:06 Stool Clostridium difficile Toxin Assay - Final Complete Intake and Output 04/12/19 04/13/19 19:00 07:00 Intake Total 1000 ml 275 ml Output Total 60 ml 245 ml Balance 940 ml 30 ml Intake Oral 900 ml IV Total 100 ml 275 ml Output Urine Total 200 ml Drainage Total 60 ml 45 ml # Voids 1 1 # Bowel Movements 1 2 Objective PHYSICAL EXAMINATION: GENERAL: The patient is a well-developed and well-nourished female, in no apparent distress. HEENT: Eyes, pupils are equal and responsive to light and accommodation. Extraocular movements are intact. NECK: Supple without lymphadenopathy. CHEST: Lungs are clear to auscultation bilaterally without wheezes or rales. CARDIOVASCULAR: Regular rhythm and rate. S1, S2 normal without murmurs, rubs, or gallops. ABDOMEN: Soft, nondistended with decreased bowel sounds. There is pain to palpation to right upper quadrant. No evidence of rebound or guarding noted. EXTREMITIES: Negative for clubbing, cyanosis, or edema. RECTAL/GENITAL: Not performed. NEUROLOGIC: Cranial nerves II through XII are grossly intact without focal deficits. Motor strength is 5/5 bilaterally. Deep tendon reflexes are 2+ plantar. Assessment/Plan Assessment/Plan ASSESSMENT: This is an 83-year-old female with: 1. Right upper quadrant pain. 2. Acute cholecystitis. 3. Cholelithiasis. 4. Elevated liver function tests. 5. Diverticulitis. 6. Diabetes type 2. 7. Hypertension. 8. Hypercholesterolemia. 9. Asthma. 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 Occult pos stool 12. Leukocytosis TREATMENT: 1. Right upper quadrant pain/diverticulitis. A Gastroenterology consultation has been obtained with Dr. Panda Friedman. 2. Acute cholecystitis/cholelithiasis. 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 S/P endoscopy 04/01/19= large stone in duodenem and tricia-duodenal fistula A General Surgery consultation has been obtained with Dr. Perez. The patient has been started empirically on intravenous ciprofloxacin and metronidazole. Surgery date is pending 3. Elevated liver function tests. Improving. As above, a Gastroenterology consultation has been obtained with Dr. Panda Friedman. Possible colonoscopy and endoscopy for occult blood source 4. Diabetes type 2. The patient has been placed on NovoLog sliding scale. 5. Hypertension. The patient is currently hypotensive. Hold amlodipine above. 6. Hypercholesterolemia. Continue simvastatin 20 mg p.o. daily. 7. Asthma. 8. 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 Advance to regular diet 10. ABX=zosyn per ID= Isaías Winchester MD Apr 13, 2019 15:24
[2019-04-13 16:00] VITALS: BP 138/70
--- NOTE | 2019-04-13 16:07 | Surgery Progress Note ---
Surgery Progress Note Subjective Procedure Performed 1. diagnostic laparoscopic 2. 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 distal gastrectomy and closure of duodenal stump - B1 4. retrocolic anterior gastrojejunostomy 5. partial omentectomy 6. abdominal drain placement Symptoms: improved, tolerating diet, passing flatus Additional Comments diarrhea Objective Last 24 Hour Vital Signs Date Time Temp Pulse Resp B/P (MAP) Pulse Ox O2 Delivery O2 Flow Rate FiO2 04/13/19 12:00 97.9 94 18 143/64 (90) 97 04/13/19 09:18 101 137/51 04/13/19 09:00 Nasal Cannula 2.0 04/13/19 08:00 97.5 101 21 137/51 (79) 98 04/13/19 07:40 97 Nasal Cannula 2.0 28 04/13/19 07:40 88 20 97 Nasal Cannula 2.0 28 04/13/19 04:00 98.2 105 18 134/61 (85) 100 04/13/19 00:00 99.1 99 18 137/60 (85) 99 04/12/19 21:00 Nasal Cannula 2.0 04/12/19 20:00 98.2 98 20 139/59 (85) 100 04/12/19 20:00 92 20 97 Nasal Cannula 2.0 28 04/12/19 20:00 98 Nasal Cannula 2.0 28 I&O Intake and Output 04/12/19 04/13/19 18:59 06:59 Intake Total 1000 ml 275 ml Output Total 60 ml 245 ml Balance 940 ml 30 ml Intake Oral 900 ml IV Total 100 ml 275 ml Output Urine Total 200 ml Drainage Total 60 ml 45 ml # Voids 1 1 # Bowel Movements 1 2 Dressing: dry Wound: clean Cardiovascular: RSR Respiratory: clear Abdomen: soft, non-tender, present bowel sounds, non-distended Extremities: no edema, no tenderness, no cyanosis Laboratory Tests Test 04/13/19 06:46 White Blood Count 9.7 K/UL (4.8-10.8) Red Blood Count 3.28 M/UL (4.20-5.40) L Hemoglobin 9.5 G/DL (12.0-16.0) L Hematocrit 29.0 % (37.0-47.0) L Mean Corpuscular Volume 88 FL (80-99) Mean Corpuscular Hemoglobin 29.0 PG (27.0-31.0) Mean Corpuscular Hemoglobin Concent 32.9 G/DL (32.0-36.0) Red Cell Distribution Width 13.6 % (11.6-14.8) Platelet Count 679 K/UL (150-450) H Mean Platelet Volume 4.6 FL (6.5-10.1) L Neutrophils (%) (Auto) 77.2 % (45.0-75.0) H Lymphocytes (%) (Auto) 10.2 % (20.0-45.0) L Monocytes (%) (Auto) 8.1 % (1.0-10.0) Eosinophils (%) (Auto) 3.7 % (0.0-3.0) H Basophils (%) (Auto) 0.8 % (0.0-2.0) Sodium Level 134 MMOL/L (136-145) L Potassium Level 4.0 MMOL/L (3.5-5.1) Chloride Level 100 MMOL/L (98-107) Carbon Dioxide Level 30 MMOL/L (21-32) Anion Gap 4 mmol/L (5-15) L Blood Urea Nitrogen 5 mg/dL (7-18) L Creatinine 0.6 MG/DL (0.55-1.30) Estimat Glomerular Filtration Rate mL/min (>60) Glucose Level 117 MG/DL (74-106) H Calcium Level 9.4 MG/DL (8.5-10.1) Assessment Post-op Diagnosis 1. acute cholecystitis 2. cholecytoduodenal fistula with impacted stone which has eroded into the first portion of the duodenum Plan Problems: (1) Cholecystitis Assessment & Plan: s/p ex lap, b2, brennen, recovering labs noted exam stable drains okay wound okay Soft diet Increase iv fluids trend labs ambulate and out of bed Alexandro Perez Apr 13, 2019 16:07
[2019-04-13] MEDS ORDERED: HYDROcodone/Acetamin 5/325 tab ORAL PRN (16:15)
--- NOTE | 2019-04-13 17:28 | NUR ---
NURSE NOTES: patient had episodes of diarrhea twice. C-diff negative. notified Dr. Atwood and received order of Imodium PRN. order noted and carried out.
[2019-04-13] MEDS: Loperamide 2mg cap ORAL PRN (18:27)
--- NOTE | 2019-04-13 19:17 | NUR ---
HAND-OFF: Report given to DIMITRIOS Chu&DIMITRIOS Duvall.
--- NOTE | 2019-04-13 19:30 | NUR ---
NURSE NOTES: Pt received in bed, awake and alert. No c/o pain or discomfort. Abd surgical sites intact, SAMMY drain intact and compressed. Call light in reach. Will monitor.
[2019-04-13 20:00] VITALS: BP 156/73
[2019-04-14] VITALS: BP 144/65
[2019-04-14 04:00] VITALS: BP 157/71
[2019-04-14] MEDS: NovoLOG Insulin Flexpen SUBQ SCH ×4 (06:19→20:51)
--- NOTE | 2019-04-14 07:12 | NUR ---
HAND-OFF: Report given to Pauline PLUNKETT.
--- NOTE | 2019-04-14 07:55 | NUR ---
NURSE NOTES: Pt received in bed, asleep, no sign of pain or discomfort. Abdominal surgical sites intact, SAMMY drain intact and compressed. On 2L 02/min NC.Call light in reach, bed locked at the lowest position possible, siderails up x2. Will continue to monitor and follow up with the plan of care.
[2019-04-14 08:00] VITALS: BP 153/65
[2019-04-14 08:42] LABS: BASOPHILS % (AUTO) 1.2 % (0.0-2.0); EOSINOPHILS % (AUTO) 1.9 % (0.0-3.0); HEMATOCRIT 28.9 % (37.0-47.0); HEMOGLOBIN 9.4 G/DL (12.0-16.0); LYMPHOCYTES % (AUTO) 10.5 % (20.0-45.0); MEAN CORPUSCULAR VOLUME 89 FL (80-99); MONOCYTES % (AUTO) 8.1 % (1.0-10.0); NEUTROPHILS % (AUTO) 78.4 % (45.0-75.0); PLATELET COUNT 704 K/UL (150-450); RED BLOOD COUNT 3.27 M/UL (4.20-5.40); RED CELL DISTRIBUTION WIDTH 13.6 % (11.6-14.8)
[2019-04-14] MEDS: Heparin 5000 units/ml inj SUBQ SCH ×2 (08:49→20:48)
[2019-04-14 08:56] LABS: ANION GAP 2 mmol/L (5-15); BLOOD UREA NITROGEN 7 mg/dL (7-18); CALCIUM 9.4 MG/DL (8.5-10.1); CARBON DIOXIDE 32 MMOL/L (21-32); CHLORIDE 98 MMOL/L (98-107); CREATININE 0.6 MG/DL (0.55-1.30); POTASSIUM 3.9 MMOL/L (3.5-5.1); SODIUM 132 MMOL/L (136-145)
--- NOTE | 2019-04-14 09:53 | Surgery Progress Note ---
Surgery Progress Note Subjective Procedure Performed 1. diagnostic laparoscopic 2. 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 distal gastrectomy and closure of duodenal stump - B1 4. retrocolic anterior gastrojejunostomy 5. partial omentectomy 6. abdominal drain placement Additional Comments doing well. comfortable no diarrhea last night drain output minimal Objective Last 24 Hour Vital Signs Date Time Temp Pulse Resp B/P (MAP) Pulse Ox O2 Delivery O2 Flow Rate FiO2 04/14/19 08:48 89 153/65 04/14/19 08:00 99.5 89 20 153/65 (94) 98 04/14/19 04:00 96.9 90 20 157/71 (99) 96 04/14/19 00:00 98.0 95 20 144/65 (91) 99 04/13/19 21:00 Nasal Cannula 2.0 04/13/19 20:00 98.6 86 19 156/73 (100) 100 04/13/19 16:00 98.1 84 19 138/70 (92) 99 04/13/19 12:00 97.9 94 18 143/64 (90) 97 I&O Intake and Output 04/13/19 04/14/19 19:00 07:00 Intake Total 225 ml 1850 ml Output Total 25 ml 720 ml Balance 200 ml 1130 ml Intake Oral 900 ml IV Total 225 ml 100 ml Blood Product 250 ml Other 600 ml Output Urine Total 200 ml Gastric Drainage Total 75 ml Drainage Total 25 ml 95 ml Estimated Blood Loss 350 ml # Voids 2 # Bowel Movements 2 Dressing: dry Wound: clean Drains: justin Cardiovascular: RSR Respiratory: clear Abdomen: non-tender, present bowel sounds Extremities: no edema, no tenderness Laboratory Tests Test 04/14/19 08:15 White Blood Count 11.0 K/UL (4.8-10.8) H Red Blood Count 3.27 M/UL (4.20-5.40) L Hemoglobin 9.4 G/DL (12.0-16.0) L Hematocrit 28.9 % (37.0-47.0) L Mean Corpuscular Volume 89 FL (80-99) Mean Corpuscular Hemoglobin 28.9 PG (27.0-31.0) Mean Corpuscular Hemoglobin Concent 32.6 G/DL (32.0-36.0) Red Cell Distribution Width 13.6 % (11.6-14.8) Platelet Count 704 K/UL (150-450) H Mean Platelet Volume 4.5 FL (6.5-10.1) L Neutrophils (%) (Auto) 78.4 % (45.0-75.0) H Lymphocytes (%) (Auto) 10.5 % (20.0-45.0) L Monocytes (%) (Auto) 8.1 % (1.0-10.0) Eosinophils (%) (Auto) 1.9 % (0.0-3.0) Basophils (%) (Auto) 1.2 % (0.0-2.0) Sodium Level 132 MMOL/L (136-145) L Potassium Level 3.9 MMOL/L (3.5-5.1) Chloride Level 98 MMOL/L (98-107) Carbon Dioxide Level 32 MMOL/L (21-32) Anion Gap 2 mmol/L (5-15) L Blood Urea Nitrogen 7 mg/dL (7-18) Creatinine 0.6 MG/DL (0.55-1.30) Estimat Glomerular Filtration Rate mL/min (>60) Glucose Level 139 MG/DL (74-106) H Calcium Level 9.4 MG/DL (8.5-10.1) Assessment Post-op Diagnosis 1. 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 Alexandro Perez Apr 14, 2019 09:53
--- NOTE | 2019-04-14 10:00 | NUR ---
NURSE NOTES: upper abdomen hair and adrianne drain were removed, folded 4x4 placed [address] Perez, asked to leave couple of hours then remove. Drain from ADRIANNE small quantity serous, discarded by dr. Perez.
--- NOTE | 2019-04-14 11:13 | GI Progress Note ---
Assessment/Plan Problems: (1) duodeno-cholecytic fistula (2) Diabetes mellitus ICD Codes: E11.9 - Type 2 diabetes mellitus without complications SNOMED: 30522043 (3) Failure to thrive in adult ICD Codes: R62.7 - Adult failure to thrive SNOMED: 879953286 (4) Elevated liver enzymes ICD Codes: R74.8 - Abnormal levels of other serum enzymes SNOMED: 648630243 (5) Hepatitis ICD Codes: K75.9 - Inflammatory liver disease, unspecified SNOMED: 466172942 (6) Diverticulitis ICD Codes: K57.92 - Diverticulitis of intestine, part unspecified, without perforation or abscess without bleeding SNOMED: 663452802 (7) Cholelithiases ICD Codes: K80.20 - Calculus of gallbladder without cholecystitis without obstruction SNOMED: 838625281 (8) Cholecystitis ICD Codes: K81.9 - Cholecystitis, unspecified SNOMED: 47532548 Status: progressing Status Narrative Discussed with Dr. Friedman. Assessment/Plan Assessment - diverticulitis - abnormal GB with duodenal fistula - Anemia - abnormal LFT s/p EGD SUMMARY OF FINDINGS: 1. Hiatal hernia. 2. Gastritis, status post biopsy. 3. Possible stone stuck in the duodenal bulb from the gallbladder fistula. RECOMMENDATIONS: s/p surg, follow up recs on diet iv abx fu labs The patient was seen and examined at bedside and all new and available data was reviewed in the patients chart. I agree with the above findings, impression and plan. (Patient seen earlier today. Signature stamp does not reflect patient encounter time.). - Panda Friedman MD Subjective Subjective limited Objective Last 24 Hour Vital Signs Date Time Temp Pulse Resp B/P (MAP) Pulse Ox O2 Delivery O2 Flow Rate FiO2 04/14/19 09:00 Nasal Cannula 2.0 04/14/19 08:48 89 153/65 04/14/19 08:00 99.5 89 20 153/65 (94) 98 04/14/19 04:00 96.9 90 20 157/71 (99) 96 04/14/19 00:00 98.0 95 20 144/65 (91) 99 04/13/19 21:00 Nasal Cannula 2.0 04/13/19 20:00 98.6 86 19 156/73 (100) 100 10/6/19 16:00 98.1 84 19 138/70 (92) 99 04/13/19 12:00 97.9 94 18 143/64 (90) 97 Intake and Output 04/13/19 04/14/19 19:00 07:00 Intake Total 225 ml 1850 ml Output Total 25 ml 720 ml Balance 200 ml 1130 ml Intake Oral 900 ml IV Total 225 ml 100 ml Blood Product 250 ml Other 600 ml Output Urine Total 200 ml Gastric Drainage Total 75 ml Drainage Total 25 ml 95 ml Estimated Blood Loss 350 ml # Voids 2 # Bowel Movements 2 Laboratory Tests Test 04/14/19 08:15 White Blood Count 11.0 K/UL (4.8-10.8) H Red Blood Count 3.27 M/UL (4.20-5.40) L Hemoglobin 9.4 G/DL (12.0-16.0) L Hematocrit 28.9 % (37.0-47.0) L Mean Corpuscular Volume 89 FL (80-99) Mean Corpuscular Hemoglobin 28.9 PG (27.0-31.0) Mean Corpuscular Hemoglobin Concent 32.6 G/DL (32.0-36.0) Red Cell Distribution Width 13.6 % (11.6-14.8) Platelet Count 704 K/UL (150-450) H Mean Platelet Volume 4.5 FL (6.5-10.1) L Neutrophils (%) (Auto) 78.4 % (45.0-75.0) H Lymphocytes (%) (Auto) 10.5 % (20.0-45.0) L Monocytes (%) (Auto) 8.1 % (1.0-10.0) Eosinophils (%) (Auto) 1.9 % (0.0-3.0) Basophils (%) (Auto) 1.2 % (0.0-2.0) Sodium Level 132 MMOL/L (136-145) L Potassium Level 3.9 MMOL/L (3.5-5.1) Chloride Level 98 MMOL/L (98-107) Carbon Dioxide Level 32 MMOL/L (21-32) Anion Gap 2 mmol/L (5-15) L Blood Urea Nitrogen 7 mg/dL (7-18) Creatinine 0.6 MG/DL (0.55-1.30) Estimat Glomerular Filtration Rate mL/min (>60) Glucose Level 139 MG/DL (74-106) H Calcium Level 9.4 MG/DL (8.5-10.1) Height (Feet): 4 Height (Inches): 5.00 Weight (Pounds): 110 General Appearance: no apparent distress, alert Cardiovascular: normal rate Respiratory/Chest: normal breath sounds, no respiratory distress Abdominal Exam: normal bowel sounds, non tender, soft Extremities: non-tender David Vieira NP Apr 14, 2019 11:13
--- NOTE | 2019-04-14 11:49 | Infectious Diseases Prog Note ---
Assessment/Plan Assessment/Plan 83 yo female with PMHx of DM, HTN and Asthma who presented to the ED on 03/27/19 with 4 days of abdominal pain. Doubt Pneum clinically XR: Right basilar opacity, likely pleural fluid, possibly within the major fissure. Component of infiltrate also possible Leukocytosis ( post Op) Sp Probable cholecystitis (? fistula) Transaminitis improving 04/03 Sp open cholecystectomy with excision of cholecystoduodenal fistula MRI : 04/02 very large gallstones, as described. Relationship of the gallstones to the duodenal lumen is not optimally demonstrated EGD: 04/01 Gastritis, status post biopsy. Possible stone stuck in the duodenal bulb from the gallbladder fistula CT abd 03/27/19 - Severe distention of the gallbladder, wall thickening, secondary to a large intraluminal gallstones. Cholecystitis is suspected. Correlate clinically. 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 There does appear to be some radiotracer filling the extremely distorted gallbladder, but this could be from the bowel connection, rather than the cystic duct. Leukocytosis -mild No Fever DM HTN HLD Asthma Arthritis PLAN - Continue to monitor pt off of AB Rx 04/09 SP Zosyn # 14 - f/u Surgery recs - Monitor CBC and temps Subjective Allergies: Coded Allergies: No Known Allergies (Unverified , 04/03/17) Subjective afebrile mild leukocytosis Objective Vital Signs Last 24 Hour Vital Signs Date Time Temp Pulse Resp B/P (MAP) Pulse Ox O2 Delivery O2 Flow Rate FiO2 04/14/19 09:00 Nasal Cannula 2.0 04/14/19 08:48 89 153/65 04/14/19 08:00 99.5 89 20 153/65 (94) 98 04/14/19 04:00 96.9 90 20 157/71 (99) 96 04/14/19 00:00 98.0 95 20 144/65 (91) 99 04/13/19 21:00 Nasal Cannula 2.0 04/13/19 20:00 98.6 86 19 156/73 (100) 100 04/13/19 16:00 98.1 84 19 138/70 (92) 99 04/13/19 12:00 97.9 94 18 143/64 (90) 97 Height (Feet): 4 Height (Inches): 5.00 Weight (Pounds): 110 Objective Gen: NAD, Satting well HEENT: NCAT, MMM, EOMI LUNGS: CTAB, No W CARDS: RRR, S1, S2 ABD: Soft, NT, ND Microbiology Date/Time Source Procedure Growth Status 04/11/19 19:06 Stool Clostridium difficile Toxin Assay - Final Complete Laboratory Tests Test 04/14/19 08:15 White Blood Count 11.0 K/UL (4.8-10.8) H Red Blood Count 3.27 M/UL (4.20-5.40) L Hemoglobin 9.4 G/DL (12.0-16.0) L Hematocrit 28.9 % (37.0-47.0) L Mean Corpuscular Volume 89 FL (80-99) Mean Corpuscular Hemoglobin 28.9 PG (27.0-31.0) Mean Corpuscular Hemoglobin Concent 32.6 G/DL (32.0-36.0) Red Cell Distribution Width 13.6 % (11.6-14.8) Platelet Count 704 K/UL (150-450) H Mean Platelet Volume 4.5 FL (6.5-10.1) L Neutrophils (%) (Auto) 78.4 % (45.0-75.0) H Lymphocytes (%) (Auto) 10.5 % (20.0-45.0) L Monocytes (%) (Auto) 8.1 % (1.0-10.0) Eosinophils (%) (Auto) 1.9 % (0.0-3.0) Basophils (%) (Auto) 1.2 % (0.0-2.0) Sodium Level 132 MMOL/L (136-145) L Potassium Level 3.9 MMOL/L (3.5-5.1) Chloride Level 98 MMOL/L (98-107) Carbon Dioxide Level 32 MMOL/L (21-32) Anion Gap 2 mmol/L (5-15) L Blood Urea Nitrogen 7 mg/dL (7-18) Creatinine 0.6 MG/DL (0.55-1.30) Estimat Glomerular Filtration Rate mL/min (>60) Glucose Level 139 MG/DL (74-106) H Calcium Level 9.4 MG/DL (8.5-10.1) Current Medications Medications (Trade) Dose Ordered Sig/Lora Route PRN Reason Start Time Stop Time Status Last Admin Dose Admin Acetaminophen (Tylenol) 650 mg Q4H PRN RECTAL FEVER 04/09/19 13:44 05/09/19 13:43 Acetaminophen/ Hydrocodone Bitart ([place] 5/325) 1 tab Q4H PRN ORAL Moderate Pain (Pain Scale 4-6) 04/13/19 16:15 04/20/19 16:14 Albuterol/ Ipratropium (Albuterol/ Ipratropium) 3 ml Q4H PRN HHN Shortness of Breath 04/13/19 13:45 04/18/19 13:44 Amlodipine Besylate (Norvasc) 5 mg DAILY ORAL 04/10/19 09:00 05/04/19 08:59 04/14/19 08:48 Dextrose (Dextrose 50%) 25 ml Q30M PRN IV Hypoglycemia 04/09/19 14:00 05/04/19 07:29 Dextrose (Dextrose 50%) 50 ml Q30M PRN IV Hypoglycemia 04/09/19 14:00 05/04/19 07:29 Diphenhydramine HCl (Benadryl) 12.5 mg Q6H PRN IVP Itching/Pruritis 04/09/19 13:44 05/09/19 13:43 Heparin Sodium (Porcine) (Heparin 5000 units/ml) 5,000 units EVERY 12 HOURS SUBQ 04/09/19 21:00 04/26/19 20:59 04/14/19 08:49 Hydralazine HCl (Apresoline) 20 mg Q4H PRN ORAL For High Blood Pressure 04/10/19 10:45 05/10/19 10:44 04/11/19 00:14 Insulin Aspart (NovoLOG) BEFORE MEALS AND HS SUBQ 04/09/19 16:30 05/04/19 11:29 04/14/19 06:19 Loperamide HCl (Imodium) 2 mg Q4H PRN ORAL Diarrhea 04/13/19 15:30 05/13/19 15:29 04/13/19 18:27 Metoclopramide HCl (Reglan) 10 mg Q6H PRN IVP Nausea & Vomiting 04/09/19 13:45 05/09/19 13:44 Ondansetron HCl (Zofran) 4 mg Q6H PRN IVP Nausea & Vomiting FIRST CHOICE 04/09/19 13:46 05/09/19 13:45 Magaly Gilmore M.D. Apr 14, 2019 11:49
[2019-04-14 12:00] VITALS: BP 130/72
[2019-04-14] MEDS: Loperamide 2mg cap ORAL PRN (12:22)
--- NOTE | 2019-04-14 13:47 | Pulmonology Progress Note ---
Assessment/Plan Problems: (1) duodeno-cholecytic fistula (2) Cholecystitis (3) Cholelithiases (4) Hepatitis (5) Failure to thrive in adult (6) Diabetes mellitus (7) Diverticulitis Assessment/Plan eating better doing better off abx on IV fluids Mg supplement check cultures f/u surgical recommendations mg supplement Subjective ROS Limited/Unobtainable: No Constitutional: Reports: no symptoms HEENT: Repors: no symptoms Respiratory: Reports: no symptoms Allergies: Coded Allergies: No Known Allergies (Unverified , 04/03/17) Objective Last 24 Hour Vital Signs Date Time Temp Pulse Resp B/P (MAP) Pulse Ox O2 Delivery O2 Flow Rate FiO2 04/14/19 12:00 98.1 100 20 130/72 (91) 97 04/14/19 09:00 Nasal Cannula 2.0 04/14/19 08:48 89 153/65 04/14/19 08:00 99.5 89 20 153/65 (94) 98 04/14/19 04:00 96.9 90 20 157/71 (99) 96 04/14/19 00:00 98.0 95 20 144/65 (91) 99 04/13/19 21:00 Nasal Cannula 2.0 04/13/19 20:00 98.6 86 19 156/73 (100) 100 04/13/19 16:00 98.1 84 19 138/70 (92) 99 Intake and Output 04/13/19 04/14/19 19:00 07:00 Intake Total 225 ml 1850 ml Output Total 25 ml 720 ml Balance 200 ml 1130 ml Intake Oral 900 ml IV Total 225 ml 100 ml Blood Product 250 ml Other 600 ml Output Urine Total 200 ml Gastric Drainage Total 75 ml Drainage Total 25 ml 95 ml Estimated Blood Loss 350 ml # Voids 2 # Bowel Movements 2 Objective General Appearance: WD/WN HEENT: normocephalic, atraumatic Respiratory/Chest: chest wall non-tender, lungs clear Breasts: no masses Cardiovascular: normal peripheral pulses Abdomen: normal bowel sounds, soft, non tender Genitourinary: normal external genitalia Extremities: no clubbing 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 Lymphatic: no neck adenopathy Microbiology Date/Time Source Procedure Growth Status 04/11/19 19:06 Stool Clostridium difficile Toxin Assay - Final Complete Laboratory Tests 04/14/19 08:15: White Blood Count 11.0H, Red Blood Count 3.27L, Hemoglobin 9.4L, Hematocrit 28.9L, Mean Corpuscular Volume 89, Mean Corpuscular Hemoglobin 28.9, Mean Corpuscular Hemoglobin Concent 32.6, Red Cell Distribution Width 13.6, Platelet Count 704H, Mean Platelet Volume 4.5L, Neutrophils (%) (Auto) 78.4H, Lymphocytes (%) (Auto) 10.5L, Monocytes (%) (Auto) 8.1, Eosinophils (%) (Auto) 1.9, Basophils (%) (Auto) 1.2, Sodium Level 132L, Potassium Level 3.9, Chloride Level 98, Carbon Dioxide Level 32, Anion Gap 2L, Blood Urea Nitrogen 7, Creatinine 0.6, Estimat Glomerular Filtration Rate , Glucose Level 139H, Calcium Level 9.4 Current Medications Medications (Trade) Dose Ordered Sig/Lora Route PRN Reason Start Time Stop Time Status Last Admin Dose Admin Acetaminophen (Tylenol) 650 mg Q4H PRN RECTAL FEVER 04/09/19 13:44 05/09/19 13:43 Acetaminophen/ Hydrocodone Bitart ([place] 5/325) 1 tab Q4H PRN ORAL Moderate Pain (Pain Scale 4-6) 04/13/19 16:15 04/20/19 16:14 Albuterol/ Ipratropium (Albuterol/ Ipratropium) 3 ml Q4H PRN HHN Shortness of Breath 04/13/19 13:45 04/18/19 13:44 Amlodipine Besylate (Norvasc) 5 mg DAILY ORAL 04/10/19 09:00 05/04/19 08:59 04/14/19 08:48 Dextrose (Dextrose 50%) 25 ml Q30M PRN IV Hypoglycemia 04/09/19 14:00 05/04/19 07:29 Dextrose (Dextrose 50%) 50 ml Q30M PRN IV Hypoglycemia 04/09/19 14:00 05/04/19 07:29 Diphenhydramine HCl (Benadryl) 12.5 mg Q6H PRN IVP Itching/Pruritis 04/09/19 13:44 05/09/19 13:43 Heparin Sodium (Porcine) (Heparin 5000 units/ml) 5,000 units EVERY 12 HOURS SUBQ 04/09/19 21:00 04/26/19 20:59 04/14/19 08:49 Hydralazine HCl (Apresoline) 20 mg Q4H PRN ORAL For High Blood Pressure 04/10/19 10:45 05/10/19 10:44 04/11/19 00:14 Insulin Aspart (NovoLOG) BEFORE MEALS AND HS SUBQ 04/09/19 16:30 05/04/19 11:29 04/14/19 12:23 Loperamide HCl (Imodium) 2 mg Q4H PRN ORAL Diarrhea 04/13/19 15:30 05/13/19 15:29 04/14/19 12:22 Metoclopramide HCl (Reglan) 10 mg Q6H PRN IVP Nausea & Vomiting 04/09/19 13:45 05/09/19 13:44 Ondansetron HCl (Zofran) 4 mg Q6H PRN IVP Nausea & Vomiting FIRST CHOICE 04/09/19 13:46 05/09/19 13:45 Dony Eli MD Apr 14, 2019 13:47
[2019-04-14 16:00] VITALS: BP 132/83
--- NOTE | 2019-04-14 18:33 | Internal Med Progress Note ---
Subjective Date of Service: Apr 14, 2019 Physician Name Isaías Atwood Attending Physician Logan Camargo MD Current Medications Medications (Trade) Dose Ordered Sig/Lora Route PRN Reason Start Time Stop Time Status Last Admin Dose Admin Acetaminophen (Tylenol) 650 mg Q4H PRN RECTAL FEVER 04/09/19 13:44 05/09/19 13:43 Acetaminophen/ Hydrocodone Bitart ([place] 5/325) 1 tab Q4H PRN ORAL Moderate Pain (Pain Scale 4-6) 04/13/19 16:15 04/20/19 16:14 Albuterol/ Ipratropium (Albuterol/ Ipratropium) 3 ml Q4H PRN HHN Shortness of Breath 04/13/19 13:45 04/18/19 13:44 Amlodipine Besylate (Norvasc) 5 mg DAILY ORAL 04/10/19 09:00 05/04/19 08:59 04/14/19 08:48 Dextrose (Dextrose 50%) 25 ml Q30M PRN IV Hypoglycemia 04/09/19 14:00 05/04/19 07:29 Dextrose (Dextrose 50%) 50 ml Q30M PRN IV Hypoglycemia 04/09/19 14:00 05/04/19 07:29 Diphenhydramine HCl (Benadryl) 12.5 mg Q6H PRN IVP Itching/Pruritis 04/09/19 13:44 05/09/19 13:43 Heparin Sodium (Porcine) (Heparin 5000 units/ml) 5,000 units EVERY 12 HOURS SUBQ 04/09/19 21:00 04/26/19 20:59 04/14/19 08:49 Hydralazine HCl (Apresoline) 20 mg Q4H PRN ORAL For High Blood Pressure 04/10/19 10:45 05/10/19 10:44 04/11/19 00:14 Insulin Aspart (NovoLOG) BEFORE MEALS AND HS SUBQ 04/09/19 16:30 05/04/19 11:29 04/14/19 12:23 Loperamide HCl (Imodium) 2 mg Q4H PRN ORAL Diarrhea 04/13/19 15:30 05/13/19 15:29 04/14/19 12:22 Metoclopramide HCl (Reglan) 10 mg Q6H PRN IVP Nausea & Vomiting 04/09/19 13:45 05/09/19 13:44 Ondansetron HCl (Zofran) 4 mg Q6H PRN IVP Nausea & Vomiting FIRST CHOICE 04/09/19 13:46 05/09/19 13:45 Allergies: Coded Allergies: No Known Allergies (Unverified , 04/03/17) ROS Limited/Unobtainable: No Constitutional: Reports: no symptoms HEENT: Reports: no symptoms Cardiovascular: Reports: no symptoms Respiratory: Reports: no symptoms Gastrointestinal/Abdominal: Reports: no symptoms Genitourinary: Reports: no symptoms Neurologic/Psychiatric: Reports: no symptoms Subjective 83 YO F admitted with right upper quadrant pain. Now acute cholecystitis and cholelithiasis. Cover for Int Med-Dr Camargo. 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 Objective Last Vital Signs Date Time Temp Pulse Resp B/P (MAP) Pulse Ox O2 Delivery O2 Flow Rate FiO2 04/14/19 16:00 98.2 98 20 132/83 (99) 97 04/14/19 09:00 Nasal Cannula 2.0 04/13/19 07:40 28 Laboratory Tests Test 04/14/19 08:15 White Blood Count 11.0 K/UL (4.8-10.8) H Red Blood Count 3.27 M/UL (4.20-5.40) L Hemoglobin 9.4 G/DL (12.0-16.0) L Hematocrit 28.9 % (37.0-47.0) L Mean Corpuscular Volume 89 FL (80-99) Mean Corpuscular Hemoglobin 28.9 PG (27.0-31.0) Mean Corpuscular Hemoglobin Concent 32.6 G/DL (32.0-36.0) Red Cell Distribution Width 13.6 % (11.6-14.8) Platelet Count 704 K/UL (150-450) H Mean Platelet Volume 4.5 FL (6.5-10.1) L Neutrophils (%) (Auto) 78.4 % (45.0-75.0) H Lymphocytes (%) (Auto) 10.5 % (20.0-45.0) L Monocytes (%) (Auto) 8.1 % (1.0-10.0) Eosinophils (%) (Auto) 1.9 % (0.0-3.0) Basophils (%) (Auto) 1.2 % (0.0-2.0) Sodium Level 132 MMOL/L (136-145) L Potassium Level 3.9 MMOL/L (3.5-5.1) Chloride Level 98 MMOL/L (98-107) Carbon Dioxide Level 32 MMOL/L (21-32) Anion Gap 2 mmol/L (5-15) L Blood Urea Nitrogen 7 mg/dL (7-18) Creatinine 0.6 MG/DL (0.55-1.30) Estimat Glomerular Filtration Rate mL/min (>60) Glucose Level 139 MG/DL (74-106) H Calcium Level 9.4 MG/DL (8.5-10.1) Microbiology Date/Time Source Procedure Growth Status 04/11/19 19:06 Stool Clostridium difficile Toxin Assay - Final Complete Intake and Output 04/13/19 04/14/19 19:00 07:00 Intake Total 225 ml 1850 ml Output Total 25 ml 720 ml Balance 200 ml 1130 ml Intake Oral 900 ml IV Total 225 ml 100 ml Blood Product 250 ml Other 600 ml Output Urine Total 200 ml Gastric Drainage Total 75 ml Drainage Total 25 ml 95 ml Estimated Blood Loss 350 ml # Voids 2 # Bowel Movements 2 Objective PHYSICAL EXAMINATION: GENERAL: The patient is a well-developed and well-nourished female, in no apparent distress. HEENT: Eyes, pupils are equal and responsive to light and accommodation. Extraocular movements are intact. NECK: Supple without lymphadenopathy. CHEST: Lungs are clear to auscultation bilaterally without wheezes or rales. CARDIOVASCULAR: Regular rhythm and rate. S1, S2 normal without murmurs, rubs, or gallops. ABDOMEN: Soft, nondistended with decreased bowel sounds. There is pain to palpation to right upper quadrant. No evidence of rebound or guarding noted. EXTREMITIES: Negative for clubbing, cyanosis, or edema. RECTAL/GENITAL: Not performed. NEUROLOGIC: Cranial nerves II through XII are grossly intact without focal deficits. Motor strength is 5/5 bilaterally. Deep tendon reflexes are 2+ plantar. Assessment/Plan Assessment/Plan ASSESSMENT: This is an 83-year-old female with: 1. Right upper quadrant pain. 2. Acute cholecystitis. 3. Cholelithiasis. 4. Elevated liver function tests. 5. Diverticulitis. 6. Diabetes type 2. 7. Hypertension. 8. Hypercholesterolemia. 9. Asthma. 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 Occult pos stool 12. Leukocytosis TREATMENT: 1. Right upper quadrant pain/diverticulitis. A Gastroenterology consultation has been obtained with Dr. Panda Friedman. 2. Acute cholecystitis/cholelithiasis. 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 S/P endoscopy 04/01/19= large stone in duodenem and tricia-duodenal fistula A General Surgery consultation has been obtained with Dr. Perez. The patient has been started empirically on intravenous ciprofloxacin and metronidazole. Surgery date is pending 3. Elevated liver function tests. Improving. As above, a Gastroenterology consultation has been obtained with Dr. Panda Friedman. Possible colonoscopy and endoscopy for occult blood source 4. Diabetes type 2. The patient has been placed on NovoLog sliding scale. 5. Hypertension. The patient is currently hypotensive. Hold amlodipine above. 6. Hypercholesterolemia. Continue simvastatin 20 mg p.o. daily. 7. Asthma. 8. 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 Advance to regular diet 10. S/P zosyn per ID= Isaías Winchester MD Apr 14, 2019 18:33
--- NOTE | 2019-04-14 19:50 | NUR ---
NURSE NOTES: Received patient in bed, awake, alert, oriented, [place]ian speaking, able to make her needs known. IV site is clean dry and intact. Call light is within reach, bed is in low position, locked and alarm is on. Will continue to monitor for comfort and safety.
[2019-04-14 20:00] VITALS: BP 126/50
[2019-04-15] VITALS: BP 124/57
[2019-04-15 04:00] VITALS: BP 126/58
[2019-04-15] MEDS: NovoLOG Insulin Flexpen SUBQ SCH ×4 (05:50→21:00)
[2019-04-15 06:14] LABS: BASOPHILS % (AUTO) 1.3 % (0.0-2.0); EOSINOPHILS % (AUTO) 3.2 % (0.0-3.0); HEMATOCRIT 27.3 % (37.0-47.0); HEMOGLOBIN 8.9 G/DL (12.0-16.0); LYMPHOCYTES % (AUTO) 15.4 % (20.0-45.0); MEAN CORPUSCULAR VOLUME 89 FL (80-99); MONOCYTES % (AUTO) 8.9 % (1.0-10.0); NEUTROPHILS % (AUTO) 71.2 % (45.0-75.0); PLATELET COUNT 607 K/UL (150-450); RED BLOOD COUNT 3.07 M/UL (4.20-5.40); RED CELL DISTRIBUTION WIDTH 13.7 % (11.6-14.8); WHITE BLOOD COUNT 10.7 K/UL (4.8-10.8)
[2019-04-15 06:27] LABS: ANION GAP 9 mmol/L (5-15); BLOOD UREA NITROGEN 13 mg/dL (7-18); CALCIUM 9.4 MG/DL (8.5-10.1); CARBON DIOXIDE 27 MMOL/L (21-32); CHLORIDE 102 MMOL/L (98-107); CREATININE 0.8 MG/DL (0.55-1.30); POTASSIUM 3.8 MMOL/L (3.5-5.1); SODIUM 138 MMOL/L (136-145)
--- NOTE | 2019-04-15 06:30 | General Progress Note ---
Assessment/Plan Problem List: (1) duodeno-cholecytic fistula (2) Diabetes mellitus ICD Codes: E11.9 - Type 2 diabetes mellitus without complications SNOMED: 80692558 (3) Failure to thrive in adult ICD Codes: R62.7 - Adult failure to thrive SNOMED: 239979049 (4) Elevated liver enzymes ICD Codes: R74.8 - Abnormal levels of other serum enzymes SNOMED: 325107069 Status: progressing Assessment/Plan: Assessment/Plan Problems: (1) duodeno-cholecytic fistula (2) Diabetes mellitus ICD Codes: E11.9 - Type 2 diabetes mellitus without complications SNOMED: 46567634 (3) Failure to thrive in adult ICD Codes: R62.7 - Adult failure to thrive SNOMED: 892692854 (4) Elevated liver enzymes ICD Codes: R74.8 - Abnormal levels of other serum enzymes SNOMED: 953192612 (5) Hepatitis ICD Codes: K75.9 - Inflammatory liver disease, unspecified SNOMED: 245449400 (6) Diverticulitis ICD Codes: K57.92 - Diverticulitis of intestine, part unspecified, without perforation or abscess without bleeding SNOMED: 685766659 (7) Cholelithiases ICD Codes: K80.20 - Calculus of gallbladder without cholecystitis without obstruction SNOMED: 224856031 (8) Cholecystitis ICD Codes: K81.9 - Cholecystitis, unspecified SNOMED: 74079378 Assessment/Plan - diverticulitis - abnormal GB with duodenal fistula - Anemia - abnormal LFT s/p EGD SUMMARY OF FINDINGS: 1. Hiatal hernia. 2. Gastritis, status post biopsy. 3. Possible stone stuck in the duodenal bulb from the gallbladder fistula. s/p surg, on diet abx surg note appreciated>> pending placement Subjective Allergies: Coded Allergies: No Known Allergies (Unverified , 04/03/17) Subjective no event over night Objective Last 24 Hour Vital Signs Date Time Temp Pulse Resp B/P (MAP) Pulse Ox O2 Delivery O2 Flow Rate FiO2 04/15/19 04:00 97.0 98 20 126/58 (80) 98 04/15/19 00:00 96.6 100 16 124/57 (79) 96 100 04/14/19 21:00 Nasal Cannula 2.0 04/14/19 20:15 82 18 98 Nasal Cannula 2.0 28 04/14/19 20:15 98 Nasal Cannula 2.0 28 04/14/19 20:00 99.0 98 18 126/50 (75) 99 98 04/14/19 16:00 98.2 98 20 132/83 (99) 97 04/14/19 12:00 98.1 100 20 130/72 (91) 97 04/14/19 09:00 Nasal Cannula 2.0 04/14/19 08:48 89 153/65 04/14/19 08:00 99.5 89 20 153/65 (94) 98 Intake and Output 04/14/19 04/15/19 19:00 07:00 Intake Total 480 ml Balance 480 ml Intake Oral 480 ml # Voids 2 # Bowel Movements 1 Laboratory Tests 04/14/19 08:15: White Blood Count 11.0H, Red Blood Count 3.27L, Hemoglobin 9.4L, Hematocrit 28.9L, Mean Corpuscular Volume 89, Mean Corpuscular Hemoglobin 28.9, Mean Corpuscular Hemoglobin Concent 32.6, Red Cell Distribution Width 13.6, Platelet Count 704H, Mean Platelet Volume 4.5L, Neutrophils (%) (Auto) 78.4H, Lymphocytes (%) (Auto) 10.5L, Monocytes (%) (Auto) 8.1, Eosinophils (%) (Auto) 1.9, Basophils (%) (Auto) 1.2, Sodium Level 132L, Potassium Level 3.9, Chloride Level 98, Carbon Dioxide Level 32, Anion Gap 2L, Blood Urea Nitrogen 7, Creatinine 0.6, Estimat Glomerular Filtration Rate , Glucose Level 139H, Calcium Level 9.4 04/15/19 05:35: White Blood Count [Pending], Red Blood Count [Pending], Hemoglobin [Pending], Hematocrit [Pending], Mean Corpuscular Volume [Pending], Mean Corpuscular Hemoglobin [Pending], Mean Corpuscular Hemoglobin Concent [Pending], Red Cell Distribution Width [Pending], Platelet Count [Pending], Mean Platelet Volume [ Pending], Neutrophils (%) (Auto) [Pending], Lymphocytes (%) (Auto) [Pending], Monocytes (%) (Auto) [Pending], Eosinophils (%) (Auto) [Pending], Basophils (%) (Auto) [Pending], Sodium Level [Pending], Potassium Level [Pending], Chloride Level [Pending], Carbon Dioxide Level [Pending], Blood Urea Nitrogen [Pending], Creatinine [Pending], Estimat Glomerular Filtration Rate [Pending], Glucose Level [Pending], Calcium Level [Pending] Height (Feet): 4 Height (Inches): 5.00 Weight (Pounds): 110 General Appearance: alert Neck: supple, normal inspection Cardiovascular: normal rate Respiratory/Chest: lungs clear Abdomen: soft, hypoactive bowel sounds Extremities: non-tender Panda Friedman MD Apr 15, 2019 06:30
[2019-04-15 08:00] VITALS: BP 123/61
--- NOTE | 2019-04-15 08:00 | NUR ---
NURSE NOTES: Received report from Lulu PLUNKETT. Patient is awake and oriented, no acute distress noted, LFA IV intact, patent. Breakfast at bedside, needs met at this time. Fall precautions maintained. Updated on plan of care for the day. Side rails upx3, bed low and locked, call light in reach. Will continue to monitor.
[2019-04-15] MEDS: Heparin 5000 units/ml inj SUBQ SCH ×2 (09:07→21:00)
--- NOTE | 2019-04-15 11:41 | Infectious Diseases Prog Note ---
Assessment/Plan Assessment/Plan 83 yo female with PMHx of DM, HTN and Asthma who presented to the ED on 03/27/19 with 4 days of abdominal pain. Doubt Pneum clinically XR: Right basilar opacity, likely pleural fluid, possibly within the major fissure. Component of infiltrate also possible Leukocytosis ( post Op) Sp Probable cholecystitis (? fistula) Transaminitis improving 04/03 Sp open cholecystectomy with excision of cholecystoduodenal fistula MRI : 04/02 very large gallstones, as described. Relationship of the gallstones to the duodenal lumen is not optimally demonstrated EGD: 04/01 Gastritis, status post biopsy. Possible stone stuck in the duodenal bulb from the gallbladder fistula CT abd 03/27/19 - Severe distention of the gallbladder, wall thickening, secondary to a large intraluminal gallstones. Cholecystitis is suspected. Correlate clinically. 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 There does appear to be some radiotracer filling the extremely distorted gallbladder, but this could be from the bowel connection, rather than the cystic duct. Leukocytosis -mild - resolved No Fever DM HTN HLD Asthma Arthritis PLAN - Continue to monitor pt off of AB Rx 04/09 SP Zosyn # 14 - f/u Surgery recs - Monitor CBC and temps Subjective Allergies: Coded Allergies: No Known Allergies (Unverified , 04/03/17) Subjective afebrile mild leukocytosis resolved Objective Vital Signs Last 24 Hour Vital Signs Date Time Temp Pulse Resp B/P (MAP) Pulse Ox O2 Delivery O2 Flow Rate FiO2 04/15/19 09:06 100 123/61 04/15/19 09:00 Nasal Cannula 2.0 04/15/19 08:00 99.3 100 22 123/61 (81) 98 100 04/15/19 04:00 97.0 98 20 126/58 (80) 98 04/15/19 00:00 96.6 100 16 124/57 (79) 96 100 04/14/19 21:00 Nasal Cannula 2.0 04/14/19 20:15 82 18 98 Nasal Cannula 2.0 28 04/14/19 20:15 98 Nasal Cannula 2.0 28 04/14/19 20:00 99.0 98 18 126/50 (75) 99 98 04/14/19 16:00 98.2 98 20 132/83 (99) 97 10/7/19 12:00 98.1 100 20 130/72 (91) 97 Height (Feet): 4 Height (Inches): 5.00 Weight (Pounds): 110 Objective Gen: NAD, Satting well HEENT: NCAT, MMM, EOMI LUNGS: CTAB, No W CARDS: RRR, S1, S2 ABD: Soft, NT, ND Laboratory Tests Test 04/15/19 05:35 White Blood Count 10.7 K/UL (4.8-10.8) Red Blood Count 3.07 M/UL (4.20-5.40) L Hemoglobin 8.9 G/DL (12.0-16.0) L Hematocrit 27.3 % (37.0-47.0) L Mean Corpuscular Volume 89 FL (80-99) Mean Corpuscular Hemoglobin 28.9 PG (27.0-31.0) Mean Corpuscular Hemoglobin Concent 32.5 G/DL (32.0-36.0) Red Cell Distribution Width 13.7 % (11.6-14.8) Platelet Count 607 K/UL (150-450) H Mean Platelet Volume 4.1 FL (6.5-10.1) L Neutrophils (%) (Auto) 71.2 % (45.0-75.0) Lymphocytes (%) (Auto) 15.4 % (20.0-45.0) L Monocytes (%) (Auto) 8.9 % (1.0-10.0) Eosinophils (%) (Auto) 3.2 % (0.0-3.0) H Basophils (%) (Auto) 1.3 % (0.0-2.0) Sodium Level 138 MMOL/L (136-145) Potassium Level 3.8 MMOL/L (3.5-5.1) Chloride Level 102 MMOL/L (98-107) Carbon Dioxide Level 27 MMOL/L (21-32) Anion Gap 9 mmol/L (5-15) Blood Urea Nitrogen 13 mg/dL (7-18) Creatinine 0.8 MG/DL (0.55-1.30) Estimat Glomerular Filtration Rate mL/min (>60) Glucose Level 95 MG/DL (74-106) Calcium Level 9.4 MG/DL (8.5-10.1) Current Medications Medications (Trade) Dose Ordered Sig/Lora Route PRN Reason Start Time Stop Time Status Last Admin Dose Admin Acetaminophen (Tylenol) 650 mg Q4H PRN RECTAL FEVER 04/09/19 13:44 05/09/19 13:43 Acetaminophen/ Hydrocodone Bitart ([place] 5/325) 1 tab Q4H PRN ORAL Moderate Pain (Pain Scale 4-6) 04/13/19 16:15 04/20/19 16:14 Albuterol/ Ipratropium (Albuterol/ Ipratropium) 3 ml Q4H PRN HHN Shortness of Breath 04/13/19 13:45 04/18/19 13:44 Amlodipine Besylate (Norvasc) 5 mg DAILY ORAL 04/10/19 09:00 05/04/19 08:59 04/15/19 09:06 Dextrose (Dextrose 50%) 25 ml Q30M PRN IV Hypoglycemia 04/09/19 14:00 05/04/19 07:29 Dextrose (Dextrose 50%) 50 ml Q30M PRN IV Hypoglycemia 04/09/19 14:00 05/04/19 07:29 Diphenhydramine HCl (Benadryl) 12.5 mg Q6H PRN IVP Itching/Pruritis 04/09/19 13:44 05/09/19 13:43 Heparin Sodium (Porcine) (Heparin 5000 units/ml) 5,000 units EVERY 12 HOURS SUBQ 04/09/19 21:00 04/26/19 20:59 04/15/19 09:07 Hydralazine HCl (Apresoline) 20 mg Q4H PRN ORAL For High Blood Pressure 04/10/19 10:45 05/10/19 10:44 04/11/19 00:14 Insulin Aspart (NovoLOG) BEFORE MEALS AND HS SUBQ 04/09/19 16:30 05/04/19 11:29 04/14/19 20:51 Loperamide HCl (Imodium) 2 mg Q4H PRN ORAL Diarrhea 04/13/19 15:30 05/13/19 15:29 04/14/19 12:22 Metoclopramide HCl (Reglan) 10 mg Q6H PRN IVP Nausea & Vomiting 04/09/19 13:45 05/09/19 13:44 Ondansetron HCl (Zofran) 4 mg Q6H PRN IVP Nausea & Vomiting FIRST CHOICE 04/09/19 13:46 05/09/19 13:45 Magaly Gilmore M.D. Apr 15, 2019 11:41
[2019-04-15 12:00] VITALS: BP 126/52
--- NOTE | 2019-04-15 13:17 | NUR ---
NURSE NOTES: Noted patient temperature of 100.9. Patient offered Tylenol suppository but refuses suppository, states she wants PO Tylenol. Contacted Dr. Eli for order for PO Tylenol, awaiting response from . Cooling measures in place. Will continue to monitor.
--- NOTE | 2019-04-15 13:22 | NUR ---
NURSE NOTES: Received response from Dr. Alcira MD ordered to d/c Tylenol suppository and order PO Tylenol. Orders entered, will carry out.
--- NOTE | 2019-04-15 13:33 | NUR ---
DISCHARGE PLANNING PATIENT HAS BEEN REFERRED TO [facility] T: [phone]
--- NOTE | 2019-04-15 13:42 | NUR ---
RD ASSESSMENT & RECOMMENDATIONS SEE CARE ACTIVITY FOR COMPLETE ASSESSMENT DAILY ESTIMATED NEEDS: Needs based on DM, surgery/ 41kg 25-35 kcals/kg 0729-4094 total kcals 1-2 g protein/kg 41-82 g total protein 25-30 mL/kg 6940-5735 total fluid mLs NUTRITION DIAGNOSIS: Altered GI function R/T suspected cholecystitis, abnormal GB with duodenal fistula as evidenced by pt admitted w/ c/o abdominal pain, s/p open brennen, diet now advanced to soft. CURRENT DIET:CCHO MED, soft easy chew PO DIET RECOMMENDATIONS: CCHO LOW, LOW FAT/ texture as tolerated ADDITIONAL RECOMMENDATIONS: * Calibrated bedscale wt for accurate CBW * W/ variable PO intake, add Glucerna x 1 * Monitor PO intake closely- admitted w/ FTT, PO intake improving . . .
--- NOTE | 2019-04-15 14:00 | Pulmonology Progress Note ---
Assessment/Plan Problems: (1) duodeno-cholecytic fistula (2) Cholecystitis (3) Cholelithiases (4) Hepatitis (5) Failure to thrive in adult (6) Diabetes mellitus (7) Diverticulitis Assessment/Plan eating better doing better off abx on IV fluids Mg supplement check cultures f/u surgical recommendations mg supplement dc planning Subjective ROS Limited/Unobtainable: No Constitutional: Reports: no symptoms HEENT: Repors: no symptoms Allergies: Coded Allergies: No Known Allergies (Unverified , 04/03/17) Objective Last 24 Hour Vital Signs Date Time Temp Pulse Resp B/P (MAP) Pulse Ox O2 Delivery O2 Flow Rate FiO2 04/15/19 12:00 100.9 95 20 126/52 (76) 99 04/15/19 09:06 100 123/61 04/15/19 09:00 Nasal Cannula 2.0 04/15/19 08:08 98 18 99 Nasal Cannula 2.0 28 04/15/19 08:08 99 Nasal Cannula 2.0 28 04/15/19 08:00 99.3 100 22 123/61 (81) 98 100 04/15/19 04:00 97.0 98 20 126/58 (80) 98 04/15/19 00:00 96.6 100 16 124/57 (79) 96 100 04/14/19 21:00 Nasal Cannula 2.0 04/14/19 20:15 82 18 98 Nasal Cannula 2.0 28 04/14/19 20:15 98 Nasal Cannula 2.0 28 04/14/19 20:00 99.0 98 18 126/50 (75) 99 98 04/14/19 16:00 98.2 98 20 132/83 (99) 97 Intake and Output 04/14/19 04/15/19 19:00 07:00 Intake Total 480 ml Balance 480 ml Intake Oral 480 ml # Voids 2 # Bowel Movements 1 Objective General Appearance: WD/WN HEENT: normocephalic, atraumatic Respiratory/Chest: chest wall non-tender, lungs clear Breasts: no masses Cardiovascular: normal peripheral pulses Abdomen: normal bowel sounds, soft, non tender Genitourinary: normal external genitalia Extremities: no clubbing 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 Lymphatic: no neck adenopathy Laboratory Tests 04/15/19 05:35: White Blood Count 10.7, Red Blood Count 3.07L, Hemoglobin 8.9L, Hematocrit 27.3L , Mean Corpuscular Volume 89, Mean Corpuscular Hemoglobin 28.9, Mean Corpuscular Hemoglobin Concent 32.5, Red Cell Distribution Width 13.7, Platelet Count 607H, Mean Platelet Volume 4.1L, Neutrophils (%) (Auto) 71.2, Lymphocytes (%) (Auto) 15.4L, Monocytes (%) (Auto) 8.9, Eosinophils (%) (Auto) 3.2H, Basophils (%) (Auto) 1.3, Sodium Level 138, Potassium Level 3.8, Chloride Level 102, Carbon Dioxide Level 27, Anion Gap 9, Blood Urea Nitrogen 13, Creatinine 0.8, Estimat Glomerular Filtration Rate , Glucose Level 95, Calcium Level 9.4 Current Medications Medications (Trade) Dose Ordered Sig/Lora Route PRN Reason Start Time Stop Time Status Last Admin Dose Admin Acetaminophen (Tylenol) 650 mg Q4H PRN ORAL Mild Pain/Temp > 100.5 04/15/19 13:30 05/15/19 13:29 04/15/19 13:35 Acetaminophen/ Hydrocodone Bitart ([place] 5/325) 1 tab Q4H PRN ORAL Moderate Pain (Pain Scale 4-6) 04/13/19 16:15 04/20/19 16:14 Albuterol/ Ipratropium (Albuterol/ Ipratropium) 3 ml Q4H PRN HHN Shortness of Breath 04/13/19 13:45 04/18/19 13:44 Amlodipine Besylate (Norvasc) 5 mg DAILY ORAL 04/10/19 09:00 05/04/19 08:59 04/15/19 09:06 Dextrose (Dextrose 50%) 25 ml Q30M PRN IV Hypoglycemia 04/09/19 14:00 05/04/19 07:29 Dextrose (Dextrose 50%) 50 ml Q30M PRN IV Hypoglycemia 04/09/19 14:00 05/04/19 07:29 Diphenhydramine HCl (Benadryl) 12.5 mg Q6H PRN IVP Itching/Pruritis 04/09/19 13:44 05/09/19 13:43 Heparin Sodium (Porcine) (Heparin 5000 units/ml) 5,000 units EVERY 12 HOURS SUBQ 04/09/19 21:00 04/26/19 20:59 04/15/19 09:07 Hydralazine HCl (Apresoline) 20 mg Q4H PRN ORAL For High Blood Pressure 04/10/19 10:45 05/10/19 10:44 04/11/19 00:14 Insulin Aspart (NovoLOG) BEFORE MEALS AND HS SUBQ 04/09/19 16:30 05/04/19 11:29 04/15/19 11:41 Loperamide HCl (Imodium) 2 mg Q4H PRN ORAL Diarrhea 04/13/19 15:30 05/13/19 15:29 04/14/19 12:22 Metoclopramide HCl (Reglan) 10 mg Q6H PRN IVP Nausea & Vomiting 04/09/19 13:45 05/09/19 13:44 Ondansetron HCl (Zofran) 4 mg Q6H PRN IVP Nausea & Vomiting FIRST CHOICE 04/09/19 13:46 05/09/19 13:45 Dony Eli MD Apr 15, 2019 14:00
--- NOTE | 2019-04-15 14:15 | NUR ---
NURSE NOTES: Patient seen by Dr. Gilmore, informed MD of patient's fever of 100.9 today, no further orders given at this time. Per Dr. Gilmore patient cleared for discharge to SNF from her standpoint.
--- NOTE | 2019-04-15 15:26 | NUR ---
DISCHARGE PLANNING DISCHARGE ORDER NOTED Patient has been accepted to; [facility] [address] [place] [address] Bed: 12-A Skilled [phone] for Nurse to Nurse report [facility] ETA for transportation: 17;30
--- NOTE | 2019-04-15 15:46 | Surgery Progress Note ---
Surgery Progress Note Subjective Procedure Performed 1. diagnostic laparoscopic 2. 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 distal gastrectomy and closure of duodenal stump - B1 4. retrocolic anterior gastrojejunostomy 5. partial omentectomy 6. abdominal drain placement Additional Comments umbilical hair removed d/c planning labs improved Objective Last 24 Hour Vital Signs Date Time Temp Pulse Resp B/P (MAP) Pulse Ox O2 Delivery O2 Flow Rate FiO2 04/15/19 14:05 99.9 04/15/19 12:00 100.9 95 20 126/52 (76) 99 04/15/19 09:06 100 123/61 04/15/19 09:00 Nasal Cannula 2.0 04/15/19 08:08 98 18 99 Nasal Cannula 2.0 28 04/15/19 08:08 99 Nasal Cannula 2.0 28 04/15/19 08:00 99.3 100 22 123/61 (81) 98 100 04/15/19 04:00 97.0 98 20 126/58 (80) 98 04/15/19 00:00 96.6 100 16 124/57 (79) 96 100 04/14/19 21:00 Nasal Cannula 2.0 04/14/19 20:15 82 18 98 Nasal Cannula 2.0 28 04/14/19 20:15 98 Nasal Cannula 2.0 28 04/14/19 20:00 99.0 98 18 126/50 (75) 99 98 04/14/19 16:00 98.2 98 20 132/83 (99) 97 I&O Intake and Output 04/14/19 04/15/19 19:00 07:00 Intake Total 480 ml Balance 480 ml Intake Oral 480 ml # Voids 2 # Bowel Movements 1 Dressing: dry Wound: clean Cardiovascular: RSR Respiratory: clear Abdomen: soft, flat, non-tender, present bowel sounds Extremities: no edema, no tenderness, no cyanosis Laboratory Tests Test 04/15/19 05:35 White Blood Count 10.7 K/UL (4.8-10.8) Red Blood Count 3.07 M/UL (4.20-5.40) L Hemoglobin 8.9 G/DL (12.0-16.0) L Hematocrit 27.3 % (37.0-47.0) L Mean Corpuscular Volume 89 FL (80-99) Mean Corpuscular Hemoglobin 28.9 PG (27.0-31.0) Mean Corpuscular Hemoglobin Concent 32.5 G/DL (32.0-36.0) Red Cell Distribution Width 13.7 % (11.6-14.8) Platelet Count 607 K/UL (150-450) H Mean Platelet Volume 4.1 FL (6.5-10.1) L Neutrophils (%) (Auto) 71.2 % (45.0-75.0) Lymphocytes (%) (Auto) 15.4 % (20.0-45.0) L Monocytes (%) (Auto) 8.9 % (1.0-10.0) Eosinophils (%) (Auto) 3.2 % (0.0-3.0) H Basophils (%) (Auto) 1.3 % (0.0-2.0) Sodium Level 138 MMOL/L (136-145) Potassium Level 3.8 MMOL/L (3.5-5.1) Chloride Level 102 MMOL/L (98-107) Carbon Dioxide Level 27 MMOL/L (21-32) Anion Gap 9 mmol/L (5-15) Blood Urea Nitrogen 13 mg/dL (7-18) Creatinine 0.8 MG/DL (0.55-1.30) Estimat Glomerular Filtration Rate mL/min (>60) Glucose Level 95 MG/DL (74-106) Calcium Level 9.4 MG/DL (8.5-10.1) Assessment Post-op Diagnosis 1. acute cholecystitis 2. cholecytoduodenal fistula with impacted stone which has eroded into the first portion of the duodenum Plan Problems: (1) Cholecystitis Assessment & Plan: s/p ex lap, b2, brennen, recovering labs noted exam stable wound okay Soft diet Increase iv fluids trend labs ambulate and out of bed Alexandro Perez Apr 15, 2019 15:46
[2019-04-15 16:00] VITALS: BP 125/53
--- NOTE | 2019-04-15 17:15 | Internal Med Progress Note ---
Subjective Date of Service: Apr 15, 2019 Physician Name Isaías Atwood Attending Physician Logan Camargo MD Current Medications Medications (Trade) Dose Ordered Sig/Lora Route PRN Reason Start Time Stop Time Status Last Admin Dose Admin Acetaminophen (Tylenol) 650 mg Q4H PRN ORAL Mild Pain/Temp > 100.5 04/15/19 13:30 05/15/19 13:29 04/15/19 13:35 Acetaminophen/ Hydrocodone Bitart ([place] 5/325) 1 tab Q4H PRN ORAL Moderate Pain (Pain Scale 4-6) 04/13/19 16:15 04/20/19 16:14 Albuterol/ Ipratropium (Albuterol/ Ipratropium) 3 ml Q4H PRN HHN Shortness of Breath 04/13/19 13:45 04/18/19 13:44 Amlodipine Besylate (Norvasc) 5 mg DAILY ORAL 04/10/19 09:00 05/04/19 08:59 04/15/19 09:06 Dextrose (Dextrose 50%) 25 ml Q30M PRN IV Hypoglycemia 04/09/19 14:00 05/04/19 07:29 Dextrose (Dextrose 50%) 50 ml Q30M PRN IV Hypoglycemia 04/09/19 14:00 05/04/19 07:29 Diphenhydramine HCl (Benadryl) 12.5 mg Q6H PRN IVP Itching/Pruritis 04/09/19 13:44 05/09/19 13:43 Heparin Sodium (Porcine) (Heparin 5000 units/ml) 5,000 units EVERY 12 HOURS SUBQ 04/09/19 21:00 04/26/19 20:59 04/15/19 09:07 Hydralazine HCl (Apresoline) 20 mg Q4H PRN ORAL For High Blood Pressure 04/10/19 10:45 05/10/19 10:44 04/11/19 00:14 Insulin Aspart (NovoLOG) BEFORE MEALS AND HS SUBQ 04/09/19 16:30 05/04/19 11:29 04/15/19 11:41 Loperamide HCl (Imodium) 2 mg Q4H PRN ORAL Diarrhea 04/13/19 15:30 05/13/19 15:29 04/14/19 12:22 Metoclopramide HCl (Reglan) 10 mg Q6H PRN IVP Nausea & Vomiting 04/09/19 13:45 05/09/19 13:44 Ondansetron HCl (Zofran) 4 mg Q6H PRN IVP Nausea & Vomiting FIRST CHOICE 04/09/19 13:46 05/09/19 13:45 Allergies: Coded Allergies: No Known Allergies (Unverified , 04/03/17) ROS Limited/Unobtainable: No Constitutional: Reports: no symptoms HEENT: Reports: no symptoms Cardiovascular: Reports: no symptoms Respiratory: Reports: no symptoms Gastrointestinal/Abdominal: Reports: no symptoms Genitourinary: Reports: no symptoms Neurologic/Psychiatric: Reports: no symptoms Subjective 83 YO F admitted with right upper quadrant pain. Now acute cholecystitis and cholelithiasis. Cover for Int Med-Dr Camargo. 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 Objective Last Vital Signs Date Time Temp Pulse Resp B/P (MAP) Pulse Ox O2 Delivery O2 Flow Rate FiO2 04/15/19 16:00 98.6 88 19 125/53 (77) 100 04/15/19 09:00 Nasal Cannula 2.0 04/15/19 08:08 28 Laboratory Tests Test 04/15/19 05:35 White Blood Count 10.7 K/UL (4.8-10.8) Red Blood Count 3.07 M/UL (4.20-5.40) L Hemoglobin 8.9 G/DL (12.0-16.0) L Hematocrit 27.3 % (37.0-47.0) L Mean Corpuscular Volume 89 FL (80-99) Mean Corpuscular Hemoglobin 28.9 PG (27.0-31.0) Mean Corpuscular Hemoglobin Concent 32.5 G/DL (32.0-36.0) Red Cell Distribution Width 13.7 % (11.6-14.8) Platelet Count 607 K/UL (150-450) H Mean Platelet Volume 4.1 FL (6.5-10.1) L Neutrophils (%) (Auto) 71.2 % (45.0-75.0) Lymphocytes (%) (Auto) 15.4 % (20.0-45.0) L Monocytes (%) (Auto) 8.9 % (1.0-10.0) Eosinophils (%) (Auto) 3.2 % (0.0-3.0) H Basophils (%) (Auto) 1.3 % (0.0-2.0) Sodium Level 138 MMOL/L (136-145) Potassium Level 3.8 MMOL/L (3.5-5.1) Chloride Level 102 MMOL/L (98-107) Carbon Dioxide Level 27 MMOL/L (21-32) Anion Gap 9 mmol/L (5-15) Blood Urea Nitrogen 13 mg/dL (7-18) Creatinine 0.8 MG/DL (0.55-1.30) Estimat Glomerular Filtration Rate mL/min (>60) Glucose Level 95 MG/DL (74-106) Calcium Level 9.4 MG/DL (8.5-10.1) Intake and Output 04/14/19 04/15/19 19:00 07:00 Intake Total 480 ml Balance 480 ml Intake Oral 480 ml # Voids 2 # Bowel Movements 1 Objective PHYSICAL EXAMINATION: GENERAL: The patient is a well-developed and well-nourished female, in no apparent distress. HEENT: Eyes, pupils are equal and responsive to light and accommodation. Extraocular movements are intact. NECK: Supple without lymphadenopathy. CHEST: Lungs are clear to auscultation bilaterally without wheezes or rales. CARDIOVASCULAR: Regular rhythm and rate. S1, S2 normal without murmurs, rubs, or gallops. ABDOMEN: Soft, nondistended with decreased bowel sounds. There is pain to palpation to right upper quadrant. No evidence of rebound or guarding noted. EXTREMITIES: Negative for clubbing, cyanosis, or edema. RECTAL/GENITAL: Not performed. NEUROLOGIC: Cranial nerves II through XII are grossly intact without focal deficits. Motor strength is 5/5 bilaterally. Deep tendon reflexes are 2+ plantar. Assessment/Plan Assessment/Plan ASSESSMENT: This is an 83-year-old female with: 1. Right upper quadrant pain. 2. Acute cholecystitis. 3. Cholelithiasis. 4. Elevated liver function tests. 5. Diverticulitis. 6. Diabetes type 2. 7. Hypertension. 8. Hypercholesterolemia. 9. Asthma. 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 Occult pos stool 12. Leukocytosis TREATMENT: 1. Right upper quadrant pain/diverticulitis. A Gastroenterology consultation has been obtained with Dr. Panda Friedman. 2. Acute cholecystitis/cholelithiasis. 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 S/P endoscopy 04/01/19= large stone in duodenem and tricia-duodenal fistula A General Surgery consultation has been obtained with Dr. Perez. The patient has been started empirically on intravenous ciprofloxacin and metronidazole. Surgery date is pending 3. Elevated liver function tests. Improving. As above, a Gastroenterology consultation has been obtained with Dr. Panda Friedman. Possible colonoscopy and endoscopy for occult blood source 4. Diabetes type 2. The patient has been placed on NovoLog sliding scale. 5. Hypertension. The patient is currently hypotensive. Hold amlodipine above. 6. Hypercholesterolemia. Continue simvastatin 20 mg p.o. daily. 7. Asthma. 8. 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 Advance to regular diet 10. S/P zosyn per ID= Dr Davis 11. Discharge to [facility] today Isaías Atwood MD Apr 15, 2019 17:15
--- NOTE | 2019-04-15 17:46 | NUR ---
NURSE NOTES: Called and gave report to DMIITRIOS Rivas at [facility].
--- NOTE | 2019-04-15 19:14 | NUR ---
HAND-OFF: Report given to Lulu PLUNKETT. Endorsed to discharge patient.
--- NOTE | 2019-04-15 19:51 | NUR ---
NURSE NOTES: Received patient in bed, awaiting to be discharged to [facility] rehab, patient is stable at this time, call light is within reach, bed is locked and lowered, will continue to monitor for comfort and care.
[2019-04-15 20:00] VITALS: BP 127/87
--- NOTE | 2019-04-15 21:28 | NUR ---
Patient has been discharged to [facility] rehab via ambulance, patient is stable condition.
--- NOTE | 2019-04-16 13:22 | Discharge Summary ---
Discharge Summary Discharge Summary _ DATE OF ADMISSION: 03/27/2019 DATE OF DISCHARGE: 04/15/2019 DISCHARGED BY: Dr. Camargo REASON FOR ADMISSION: 83 years old female with past medical history of hypertension, asthma, diabetes mellitus, presented to emergency department accompanied by her son. For the last four days patient had no appetite and had generalized weakness. Patient also reported intermittent upper abdominal pain. She denied fever or chills. She denied nausea and vomiting. She denied chest pain or shortness of breath. She denied dysuria or hematuria. Upon evaluation vital signs were stable. Laboratory work-up revealed leukocytosis WBC 11.8, hemoglobin 10, hematocrit 30.9, platelet count 499. Urinalysis revealed +2 protein, +2 bilirubin, +1 leukocyte esterase , few bacteria , few pyuria. Stable electrolytes and renal parameters. Glucose 133. Lactic acid 1.5. AST 612 , ALT 592. Total CK 71 , troponin negative. Chest x-ray revealed no acute cardiopulmonary cardiopulmonary disease. CT of the abdomen pelvis demonstrated severe distention of the gallbladder ; gallbladder wall thickening secondary to a large intraluminal gallstones. Cholecystitis suspected. Suspected diverticulitis in the sigmoid region with wall thickening and mild perisigmoid inflammation with a multiply diverticula in the sigmoid colon .No evidence of abscess. Abdominal ultrasound demonstrated cholelithiasis , no evidence of hydronephrosis. Patient subsequently admitted for further management due to possible cholecystitis , cholelithiasis and elevated LFT. CONSULTANTS: hospitalist Dr. Eli ID specialist Dr. Davis GI specialist Dr. Friedman surgery Dr. Perez [facility] COURSE: Patient admitted. Patient started on empiric antibiotics as per ID specialist recommendations . GI specialist followed. Patient subsequently undergone HIDA scan , which revealed cystic duct obstruction. Findings were consistent with acute cholecystitis. Patient undergone on upper endoscopy due to positive for occult blood stool and anemia. Patient was noted to have hiatal hernia , gastritis , status post biopsy , possible stone stuck in the duodenal bulb from the gallbladder fistula. Patient undergone abdominal MRI on 04/02, which revealed two very large gallstones . 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 Mild dilatation of the common hepatic duct noted. Patient subsequently undergone by general surgeon diagnostic laparoscopy with open cholecystectomy with excision of cholecystoduodenal fistula, distal gastrectomy and closure of duodenal stump , retrocolic anterior gastrojejunostomy, partial omentectomy , abdominal drain placement. Antibiotic provided as per ID specialist recommendations. Blood cultures were negative . Urine culture was negative. Stool for C. difficile was negative. Patient was transfused with 1 unit of packed red blood cells. Biopsy of stomach antrum revealed mild chronic gastritis and was negative for intestinal metaplasia, dysplasia or malignancy. Negative for Helicobacter infection. 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 Other biopsy revealed no evidence of malignancy. Supplemental oxygen provided as needed to keep pulse oximetry above 92%. Pulmonary toilet provided as needed. Blood pressure was managed with calcium channel dennis. Hemoglobin and hematocrit were closely monitored, and remained at baseline. Cancer tumor markers noted: [id number], CEA 6.1 . No evidence of malignancy on biopsy , as mentioned above Hepatitis panel negative . LFT trended down to normal. Bedside swallow evaluation revealed evidence of aspiration risk. Speech therapist recommended skilled dysphagia management as well as proceed with a video swallow evaluation. Patient subsequently undergone video swallow evaluation , which revealed silent aspiration risk. Diet provided as per speech therapist recommendations with strict aspiration/ reflux precaution. Nutritional supplements n implemented in plan of care as per registered radiographer recommendation. Wound care provided as per surgeon recommendation. Supportive care provided. Patient completed antibiotic for 14 days . Leukocytosis resolved, no fevers. Infectious disease specialist recommended to monitor patient off antibiotics. Supportive care provided. Pain management addressed as needed. DVT prophylaxis provided. Blood sugar was managed with sliding scale of insulin. Antiemetic were on board as needed . Bowel regimen instituted. Hemoglobin A1c 7.0- at goal. Prior to discharge all electrolytes stable , stable LFT. Hemoglobin 8.9 , hematocrit 27.5 . Patient clinically stabilized and was ready for transfer to care home facility for continuation of care . 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 DISCHARGE INSTRUCTIONS: Patient was discharged to the care home facility. Follow up with medical doctor at the facility. Karen العراقي NP Apr 16, 2019 13:22
== END 2019-04-15 21:30 | DRG 415 ==
LOC: EMR 10:58 → 4E 12:41 → EDBEDREQ 15:59 → OBSVTOIN 16:57 → 4E 03-30 17:36 → ICU 04-03 13:36 → 2W 04-04 23:04 → 4E 04-09 13:08
PROC: 0DB68ZX Excision of Stomach, Via Natural or Artificial Opening Endoscopic, Diagnostic (ICD-10-PCS; principal; 2019-04-01 12:15)
PROC: 0FT40ZZ Resection of Gallbladder, Open Approach (ICD-10-PCS; 2019-04-03)
PROC: 0FJ44ZZ Inspection of Gallbladder, Percutaneous Endoscopic Approach (ICD-10-PCS; 2019-04-03)
PROC: 0D160ZA Bypass Stomach to Jejunum, Open Approach (ICD-10-PCS; 2019-04-03)
PROC: 0DB60ZZ Excision of Stomach, Open Approach (ICD-10-PCS; 2019-04-03)
PROC: 0DB90ZZ Excision of Duodenum, Open Approach (ICD-10-PCS; 2019-04-03)
PROC: 0DBU0ZZ Excision of Omentum, Open Approach (ICD-10-PCS; 2019-04-03)
DX: K80.01 Calculus of gallbladder with acute cholecystitis with obstruction (principal); K57.92 Diverticulitis of intestine, part unspecified, without perforation or abscess without bleeding; K56.3 Gallstone ileus; K82.3 Fistula of gallbladder; K75.9 Inflammatory liver disease, unspecified; E11.9 Type 2 diabetes mellitus without complications; E78.00 Pure hypercholesterolemia, unspecified; J45.909 Unspecified asthma, uncomplicated; M81.0 Age-related osteoporosis without current pathological fracture; R79.89 Other specified abnormal findings of blood chemistry; R62.7 Adult failure to thrive; Z53.31 Laparoscopic surgical procedure converted to open procedure; K29.50 Unspecified chronic gastritis without bleeding; K44.9 Diaphragmatic hernia without obstruction or gangrene; R19.5 Other fecal abnormalities
CPT/HCPCS: 36415; 71045; 74177; 74181; 74230; 76700; 78266; 80048; 80053; 80061; 80076; 81003; 82150; 82270; 82378; 82550; 82553; 82607; 82728; 82746; 82962; 83036; 83540; 83550; 83605; 83690; 83735; 84100; 84439; 84443; 84484; 85007; 85025; 85044; 85610; 85651; 85730; 86140; 86705; 86709; 86803; 86850; 86900; 86901; 86920; 87040; 87086; 87324; 87340; 93005; 94003; 94150; 94664; 96361; 96374; 99284; J1815; J2710; J8499

== ENCOUNTER 2019-06-14 09:03 | Emergency (ER) | payer MEDICARE, MEDICAID ==
[~2019-06-14] VITALS: Ht 127 cm; Wt 40.4 kg
[~2019-06-14 09:03] MED LIST changes: +ASPIRIN-LOW81 MG ORAL; +FAMOTIDINE20 MG ORAL; +NAMENDA5 MG ORAL; +PRAVASTATIN SOD20 M1 ORAL
[2019-06-14 09:20] VITALS: BP 149/82
--- NOTE | 2019-06-14 09:20 | NUR ---
ED Nurse Note: PT FROM HOME PRESENTS TO ED WITH DIFFICULTY IN URINATION X 2 WEEKS WITH BACK PAIN. DENIES BLOOD IN HER URINE AND STATES SHE FEELS SOME DISCOMFORT WHEN SHE URINATES. AAO X4, AMBULATES WITH STEADY GAIT. CALM AND COOPERATIVE. FAMILY MEMBER AT THE BED SIDE.
--- NOTE | 2019-06-14 09:59 | Emergency Room Report ---
History of Present Illness General Chief Complaint: Female Urogenital Problems Source: Patient, Medical Record Present Illness HPI 83-year-old female who is presenting to emergency room with 2 weeks of dysuria. And suprapubic abdominal pain. Patient denies any hematuria or vaginal bleeding or discharge. Patient states that her pain is burning in sensation and pressure-like. Patient has not tried any medications. Patient states that she has a history of hypertension diabetes high cholesterol. She has not taken her morning medications as she forgot while coming to the emergency room. Patient of note had cholecystectomy 2 months ago. She denies any vomiting, back pain, nausea, other abdominal pain, vaginal bleeding, discharge Allergies: Coded Allergies: No Known Allergies (Unverified , 04/03/17) Patient History Last Menstrual Period: N/A Nursing Documentation-[facility] Hx Hypertension: Yes Hx Asthma: Yes Hx Diabetes: Yes Review of Systems Constitutional: Denies: chills, fever Respiratory: Denies: cough, shortness of breath Cardiovascular: Denies: chest pain, palpitations Gastrointestinal: Reports: abdominal pain; Denies: diarrhea, vomiting Genitourinary: Reports: dysuria; Denies: hematuria, pain Musculoskeletal: Denies: joint swelling Skin: Denies: rash, lesions Neurological: Denies: headache, dizziness Physical Exam Vital Signs Date Time Temp Pulse Resp B/P (MAP) Pulse Ox O2 Delivery O2 Flow Rate FiO2 06/14/19 09:10 98.1 99 15 155/81 (105) 97 Room Air Sp02 EP Interpretation: reviewed General Appearance: well appearing, no apparent distress, non-toxic Head: normocephalic, atraumatic Eyes: bilateral eye normal inspection ENT: hearing grossly normal, EOM grossly intact, moist mucus membranes Neck: supple Respiratory: lungs clear, normal breath sounds, no respiratory distress, speaking full sentences Cardiovascular #1: regular rate, rhythm, normal capillary refill Cardiovascular #2: 2+ radial (R), 2+ radial (L) Gastrointestinal: soft, no mass, non-distended, no guarding, no hernia, no rebound, tenderness - Suprapubic Rectal: deferred Genitourinary: no CVA tenderness Musculoskeletal: moves extm spontaneously, no lower extremity edema Neurologic: grossly normal Psychiatric: mood/affect normal Skin: warm/dry, normal turgor Medical Decision Making ER Course 83-year-old female with 2 weeks of dysuria with suprapubic pain with recent history of cholecystectomy. Patient did not take blood pressure medication this morning found to have elevated blood pressure, on exam has suprapubic tenderness otherwise no rebound no guarding, afebrile patient. Differential includes urinary tract infection versus intra-abdominal infection Lab testing however noted some mild anemia and positive leukocyte esterase in urine. Will treat UTI. And discharge patient to have follow-up with primary care doctor. Instructions given to patient and her son at bedside. She understands return precautions and warning signs. Patient agreeable with plan Laboratory Tests Test 06/14/19 09:30 White Blood Count 6.1 K/UL (4.8-10.8) Red Blood Count 3.72 M/UL (4.20-5.40) L Hemoglobin 10.4 G/DL (12.0-16.0) L Hematocrit 32.9 % (37.0-47.0) L Mean Corpuscular Volume 89 FL (80-99) Mean Corpuscular Hemoglobin 28.1 PG (27.0-31.0) Mean Corpuscular Hemoglobin Concent 31.7 G/DL (32.0-36.0) L Red Cell Distribution Width 15.1 % (11.6-14.8) H Platelet Count 397 K/UL (150-450) Mean Platelet Volume 5.0 FL (6.5-10.1) L Neutrophils (%) (Auto) 53.5 % (45.0-75.0) Lymphocytes (%) (Auto) 31.3 % (20.0-45.0) Monocytes (%) (Auto) 10.8 % (1.0-10.0) H Eosinophils (%) (Auto) 3.0 % (0.0-3.0) Basophils (%) (Auto) 1.3 % (0.0-2.0) Urine Color Yellow Urine Appearance Slightly cloudy Urine pH 5 (4.5-8.0) Urine Specific [place] 1.020 (1.005-1.035) Urine Protein 3+ (NEGATIVE) H Urine Glucose (UA) Negative (NEGATIVE) Urine Ketones 1+ (NEGATIVE) H Urine Blood Negative (NEGATIVE) Urine Nitrite Negative (NEGATIVE) Urine Bilirubin Negative (NEGATIVE) Urine Urobilinogen 1 MG/DL (0.0-1.0) H Urine Leukocyte Esterase 1+ (NEGATIVE) H Urine RBC 0-2 /HPF (0 - 2) Urine WBC 5-10 /HPF (0 - 2) H Urine Squamous Epithelial Cells Many /LPF (NONE/OCC) H Urine Bacteria Few /HPF (NONE) Sodium Level 142 MMOL/L (136-145) Potassium Level 3.9 MMOL/L (3.5-5.1) Chloride Level 106 MMOL/L (98-107) Carbon Dioxide Level 27 MMOL/L (21-32) Anion Gap 9 mmol/L (5-15) Blood Urea Nitrogen 16 mg/dL (7-18) Creatinine 0.7 MG/DL (0.55-1.30) Estimate Glomerular Filtration Rate mL/min (>60) Glucose Level 101 MG/DL (74-106) Calcium Level 9.5 MG/DL (8.5-10.1) Total Bilirubin 0.3 MG/DL (0.2-1.0) Aspartate Amino Transferase (AST) 17 U/L (15-37) Alanine Aminotransferase (ALT) 11 U/L (12-78) L Alkaline Phosphatase 73 U/L (46-116) Total Protein 7.0 G/DL (6.4-8.2) Albumin 3.2 G/DL (3.4-5.0) L Globulin 3.8 g/dL Albumin/Globulin Ratio 0.8 (1.0-2.7) L Lab Results Impression Labs noted to have mild anemia with hemoglobin of 10.4, CMP within normal limits Urinalysis shows positive leukocyte esterase however contaminated sample with many epithelial cells. However given patient's symptoms we will treat Last Vital Signs Date Time Temp Pulse Resp B/P (MAP) Pulse Ox O2 Delivery O2 Flow Rate FiO2 06/14/19 11:56 98.0 77 15 125/60 99 Room Air Disposition: HOME, SELF-CARE Condition: Stable Scripts Cephalexin* (KEFLEX*) 500 Mg Tablet 500 MG ORAL EVERY 6 HOURS for 5 Days, #20 CAP Prov: Renzo Powell M.D. 06/14/19 Referrals: [facility] Patient Instructions: Urinary Tract Infection Additional Instructions: Please return to emergency room if you have any worsening symptoms or new symptoms. Please take antibiotics as prescribed Renzo Powell M.D. Jun 14, 2019 09:59
--- NOTE | 2019-06-14 10:10 | NUR ---
ED Nurse Note: COLLECTED BLOOD/URINE THEN SENT.
[2019-06-14 10:47] LABS: BASOPHILS % (AUTO) 1.3 % (0.0-2.0); HEMATOCRIT 32.9 % (37.0-47.0); HEMOGLOBIN 10.4 G/DL (12.0-16.0); LYMPHOCYTES % (AUTO) 31.3 % (20.0-45.0); MEAN CORPUSCULAR VOLUME 89 FL (80-99); MONOCYTES % (AUTO) 10.8 % (1.0-10.0); NEUTROPHILS % (AUTO) 53.5 % (45.0-75.0); PLATELET COUNT 397 K/UL (150-450); RED BLOOD COUNT 3.72 M/UL (4.20-5.40); RED CELL DISTRIBUTION WIDTH 15.1 % (11.6-14.8); WHITE BLOOD COUNT 6.1 K/UL (4.8-10.8)
[2019-06-14 10:52] LABS: APPEARANCE,URINE SLIGHTLY CLOUDY; BILIRUBIN, URINE NEGATIVE (NEGATIVE); GLUCOSE, URINE (UA) NEGATIVE (NEGATIVE); KETONES,URINE 1+ (NEGATIVE); LEUKOCYTE ESTERASE ,URINE 1+ (NEGATIVE); NITRITE,URINE NEGATIVE (NEGATIVE); PH,URINE 5 (4.5-8.0); PROTEIN,URINE 3+ (NEGATIVE); UROBILINOGEN,URINE 1 MG/DL (0.0-1.0)
[2019-06-14 10:57] LABS: ANION GAP 9 mmol/L (5-15); BLOOD UREA NITROGEN 16 mg/dL (7-18); CALCIUM 9.5 MG/DL (8.5-10.1); CARBON DIOXIDE 27 MMOL/L (21-32); CHLORIDE 106 MMOL/L (98-107); CREATININE 0.7 MG/DL (0.55-1.30); POTASSIUM 3.9 MMOL/L (3.5-5.1); SODIUM 142 MMOL/L (136-145)
[2019-06-14 11:02] LABS: ALANINE AMINOTRANSFERASE 11 U/L (12-78); ALBUMIN 3.2 G/DL (3.4-5.0); ALBUMIN/GLOBULIN RATIO 0.8 (1.0-2.7); ALKALINE PHOSPHATASE 73 U/L (46-116); ASPARTATE AMINO TRANSFERASE 17 U/L (15-37); BILIRUBIN,TOTAL 0.3 MG/DL (0.2-1.0)
[2019-06-14 11:10] VITALS: BP 129/59
[2019-06-14 11:17] LABS: COLOR,URINE YELLOW
[2019-06-14] MEDS ORDERED: CEPHALEXIN500 M1 ORAL (11:30)
[2019-06-14 11:56] VITALS: BP 125/60
--- NOTE | 2019-06-14 11:56 | NUR ---
ER DISCHARGE NOTE: Patient is cleared to be discharged per ERMD, pt is aox4, on room air, with stable vital signs. pt was given dc and prescription instructions, pt was able to verbalize understanding, pt id band and iv site removed without complications. pt is able to ambulate with steady gait. pt took all belongings and left with her family member.
== END 2019-06-14 11:56 | disposition home or self-care (01) ==
LOC: EMR 09:25
DX: R30.0 Dysuria (principal); E11.9 Type 2 diabetes mellitus without complications; I10 Essential (primary) hypertension; E78.00 Pure hypercholesterolemia, unspecified; Z90.49 Acquired absence of other specified parts of digestive tract; D64.9 Anemia, unspecified
CPT/HCPCS: 36415; 80053; 81003; 85025; 99284; J7040

== ENCOUNTER 2019-08-16 09:08 | Inpatient (IN) | payer MEDICARE, MEDICAID ==
[~2019-08-16] VITALS: Ht 144.8 cm; Wt 39.5 kg
[~2019-08-16 09:08] MED LIST changes: +CEPHALEXIN500 M1 ORAL
[2019-08-16 09:20] VITALS: BP 166/91
--- NOTE | 2019-08-16 09:20 | NUR ---
ED Nurse Note: PT FROM HOME AND WALKED IN WITH HER SON DUE TO RESPIRATORY DISTRESS X 1 DAY. HX OF ASTHMA AND AUDIBLE WHEEZING NOTED. PT STATES THAT SHE FEELS VERY CONGESTED. AAO X4 AND AMBULATORY. SOB EVEN WHEN RESTING. SATS 98 % IN ROOM AIR. ERMD AT THE BED SIDE.
[2019-08-16] MEDS ORDERED: POTASSIUM600 M1 PO (09:21)
--- NOTE | 2019-08-16 09:24 | Emergency Room Report ---
History of Present Illness General Chief Complaint: Asthma Source: Patient Present Illness HPI Patient presents with complaints of shortness of breath and what she describes as patient patient is here with son Who reports that this morning she started to complain of the breathing patient has been having a cough over the past several days Denies any recent travel Denies any obvious fever Denies any chest pain however she does feel some discomfort with the increased asthma Unclear regarding the reason for the exacerbation Denies any headache denies any focal weakness Allergies: Coded Allergies: No Known Allergies (Unverified , 04/03/17) Patient History Past Medical History: see triage record Reviewed Nursing Documentation: PMH: Agreed; PSxH: Agreed Nursing Documentation-PMH Past Medical History: No History, Except For Hx Hypertension: Yes Hx Asthma: Yes Hx Diabetes: Yes Review of Systems All Other Systems: negative except mentioned in HPI Physical Exam Vital Signs Date Time Temp Pulse Resp B/P (MAP) Pulse Ox O2 Delivery O2 Flow Rate FiO2 08/16/19 09:15 98.8 96 22 166/71 (102) 88 Room Air Sp02 EP Interpretation: reviewed, abnormal - 88% which is interpreted as low on 2 L nasal cannula patient saturating at 94% which is normal General Appearance: mild distress - Appears short of breath Head: normocephalic, atraumatic Eyes: bilateral eye PERRL, bilateral eye EOMI ENT: hearing grossly normal, EOM grossly intact Neck: supple, no meningismus Respiratory: wheezing - And crackles bilaterally somewhat tachypneic no obvious retraction Cardiovascular #1: regular rate, rhythm, no edema Gastrointestinal: non tender, soft Genitourinary: no CVA tenderness Musculoskeletal: normal inspection - With significant kyphosis Neurologic: alert, oriented x3 Psychiatric: normal inspection Skin: no rash Lymphatic: no adenopathy Procedures Critical Care Time Critical Care Time 35 minutes for initial critical presentation concern for respiratory decompensation and arrest not including any procedural time Medical Decision Making Diagnostic Impression: Primary Impression: Asthma attack Additional Impression: Dyspnea ER Course Patient is a fairly complex patient with multiple differential to consideration including but not limited to cardiac cardiopulmonary and vascular emergencies Patient has emergent breathing treatments initiated Magnesium sulfate Patient observed and doing somewhat better however still continues to have wheezing requiring further breathing treatments and intervention At this point patient is requiring inpatient care Labs Test 08/16/19 09:25 08/16/19 11:15 08/16/19 11:22 08/16/19 16:15 White Blood Count 6.7 K/UL (4.8-10.8) Red Blood Count 3.81 M/UL (4.20-5.40) Hemoglobin 10.3 G/DL (12.0-16.0) Hematocrit 31.9 % (37.0-47.0) Mean Corpuscular Volume 84 FL (80-99) Mean Corpuscular Hemoglobin 27.0 PG (27.0-31.0) Mean Corpuscular Hemoglobin Concent 32.3 G/DL (32.0-36.0) Red Cell Distribution Width 12.6 % (11.6-14.8) Platelet Count 357 K/UL (150-450) Mean Platelet Volume 5.8 FL (6.5-10.1) Neutrophils (%) (Auto) 48.5 % (45.0-75.0) Lymphocytes (%) (Auto) 29.5 % (20.0-45.0) Monocytes (%) (Auto) 9.2 % (1.0-10.0) Eosinophils (%) (Auto) 11.0 % (0.0-3.0) Basophils (%) (Auto) 1.8 % (0.0-2.0) Sodium Level 142 MMOL/L (136-145) Potassium Level 3.9 MMOL/L (3.5-5.1) Chloride Level 106 MMOL/L (98-107) Carbon Dioxide Level 25 MMOL/L (21-32) Anion Gap 11 mmol/L (5-15) Blood Urea Nitrogen 23 mg/dL (7-18) Creatinine 0.9 MG/DL (0.55-1.30) Estimat Glomerular Filtration Rate mL/min (>60) Glucose Level 94 MG/DL (74-106) Lactic Acid Level 2.70 mmol/L (0.4-2.0) 1.40 mmol/L (0.66-2.22) Calcium Level 8.6 MG/DL (8.5-10.1) Total Bilirubin 0.2 MG/DL (0.2-1.0) Aspartate Amino Transf (AST/SGOT) 17 U/L (15-37) Alanine Aminotransferase (ALT/SGPT) 19 U/L (12-78) Alkaline Phosphatase 104 U/L (46-116) Total Creatine Kinase 48 U/L (26-308) Creatine Kinase MB 1.1 NG/ML (0.0-3.6) Creatine Kinase MB Relative Index 2.2 Troponin I 0.004 ng/mL (0.000-0.056) Pro-B-Type Natriuretic Peptide 541 pg/mL (0-125) Total Protein 7.5 G/DL (6.4-8.2) Albumin 3.5 G/DL (3.4-5.0) Globulin 4.0 g/dL Albumin/Globulin Ratio 0.9 (1.0-2.7) Arterial Blood pH 7.371 (7.350-7.450) Arterial Blood Partial Pressure CO2 35.2 mmHg (35.0-45.0) Arterial Blood Partial Pressure O2 76.2 mmHg (75.0-100.0) Arterial Blood HCO3 19.9 mmol/L (22.0-26.0) Arterial Blood Oxygen Saturation 94.9 % (95-100) Arterial Blood Base Excess -4.7 (-2-2) Braden Test Positive Urine Color Pale yellow Urine Appearance Clear Urine pH 5 (4.5-8.0) Urine Specific [place] 1.015 (1.005-1.035) Urine Protein 2+ (NEGATIVE) Urine Glucose (UA) 4+ (NEGATIVE) Urine Ketones Negative (NEGATIVE) Urine Blood Negative (NEGATIVE) Urine Nitrite Negative (NEGATIVE) Urine Bilirubin Negative (NEGATIVE) Urine Urobilinogen Normal MG/DL (0.0-1.0) Urine Leukocyte Esterase Negative (NEGATIVE) Urine RBC 0-2 /HPF (0 - 2) Urine WBC 0-2 /HPF (0 - 2) Urine Squamous Epithelial Cells Few /LPF (NONE/OCC) Urine Bacteria None /HPF (NONE) Test 08/17/19 07:00 08/18/19 06:00 08/19/19 06:15 White Blood Count 5.0 K/UL (4.8-10.8) 8.3 K/UL (4.8-10.8) Red Blood Count 3.53 M/UL (4.20-5.40) 3.93 M/UL (4.20-5.40) Hemoglobin 9.6 G/DL (12.0-16.0) 10.6 G/DL (12.0-16.0) Hematocrit 29.3 % (37.0-47.0) 32.2 % (37.0-47.0) Mean Corpuscular Volume 83 FL (80-99) 82 FL (80-99) Mean Corpuscular Hemoglobin 27.2 PG (27.0-31.0) 27.1 PG (27.0-31.0) Mean Corpuscular Hemoglobin Concent 32.8 G/DL (32.0-36.0) 33.0 G/DL (32.0-36.0) Red Cell Distribution Width 12.6 % (11.6-14.8) 12.2 % (11.6-14.8) Platelet Count 300 K/UL (150-450) 353 K/UL (150-450) Mean Platelet Volume 6.0 FL (6.5-10.1) 6.2 FL (6.5-10.1) Neutrophils (%) (Auto) 71.8 % (45.0-75.0) 80.5 % (45.0-75.0) Lymphocytes (%) (Auto) 20.8 % (20.0-45.0) 15.1 % (20.0-45.0) Monocytes (%) (Auto) 7.1 % (1.0-10.0) 4.3 % (1.0-10.0) Eosinophils (%) (Auto) 0.0 % (0.0-3.0) 0.0 % (0.0-3.0) Basophils (%) (Auto) 0.3 % (0.0-2.0) 0.1 % (0.0-2.0) Sodium Level 140 MMOL/L (136-145) 140 MMOL/L (136-145) Potassium Level 4.4 MMOL/L (3.5-5.1) 4.1 MMOL/L (3.5-5.1) Chloride Level 107 MMOL/L (98-107) 104 MMOL/L (98-107) Carbon Dioxide Level 28 MMOL/L (21-32) 29 MMOL/L (21-32) Anion Gap 5 mmol/L (5-15) 7 mmol/L (5-15) Blood Urea Nitrogen 31 mg/dL (7-18) 37 mg/dL (7-18) Creatinine 0.8 MG/DL (0.55-1.30) 0.9 MG/DL (0.55-1.30) Estimat Glomerular Filtration Rate mL/min (>60) mL/min (>60) Glucose Level 144 MG/DL (74-106) 145 MG/DL (74-106) Hemoglobin A1c 6.5 % (4.3-6.0) Calcium Level 8.9 MG/DL (8.5-10.1) 9.1 MG/DL (8.5-10.1) Iron Level 20 ug/dL (50-175) Total Iron Binding Capacity 346 ug/dL (250-450) Percent Iron Saturation 6 % (15-50) Unsaturated Iron Binding 326 ug/dL (112-346) Ferritin 10 NG/ML (8-388) Troponin I 0.000 ng/mL (0.000-0.056) Pro-B-Type Natriuretic Peptide 1479 pg/mL (0-125) Triglycerides Level 44 MG/DL (30-150) Cholesterol Level 185 MG/DL (< 200) LDL Cholesterol 80 mg/dL (<100) HDL Cholesterol 94 MG/DL (40-60) Cholesterol/HDL Ratio 2.0 (3.3-4.4) Carcinoembryonic Antigen 5.8 ng/mL (0.0-4.7) Vitamin B12 Level 548 PG/ML (193-986) Thyroid Stimulating Hormone (TSH) 0.311 uiU/mL (0.358-3.740) Free Thyroxine 0.86 NG/DL (0.76-1.46) Free Triiodothyronine 1.8 pg/mL (2.3-4.2) Rhythm Strip Diag. Results EP Interpretation: yes Rate: 88 Rhythm: NSR, no PVC's, no ectopy Chest X-Ray Diagnostic Results Chest X-Ray Diagnostic Results : Chest X-Ray Ordered: Yes # of Views/Limited/Complete: 1 View Indication: Shortness of Breath EP Interpretation: Yes Interpretation: no consolidation, no effusion, no pneumothorax, no acute cardiopulmonary disease - COPD Impression: No acute disease - COPD Electronically Signed by: Christina Magana DO Last Vital Signs Date Time Temp Pulse Resp B/P (MAP) Pulse Ox O2 Delivery O2 Flow Rate FiO2 08/16/19 09:20 93 18 Room Air 08/16/19 09:15 98.8 166/71 (102) 88 Status: improved Disposition: ADMITTED INPATIENT Condition: Serious Christina Magana DO Aug 16, 2019 09:24
[2019-08-16] MEDS ORDERED: Albuterol ud Inhalation HHN ONE (09:30)
[2019-08-16] MEDS ORDERED: Solu-MEDROL 125mg Inj IVP ONE (09:30)
[2019-08-16] MEDS ORDERED: Ipratropium 0.02% Inh Soln 2.5ml UD HHN ONE (09:30)
--- NOTE | 2019-08-16 09:31 | NUR ---
ED Nurse Note: COLLECTED BLOOD AND FLU SWAB THEN SENT.
--- NOTE | 2019-08-16 09:34 | NUR ---
ED Nurse Note: RT VASQUEZ AT THE BED SIDE FOR BREATHING TREATMENT.
[2019-08-16 09:38] LABS: BASOPHILS % (AUTO) 1.8 % (0.0-2.0); HEMATOCRIT 31.9 % (37.0-47.0); HEMOGLOBIN 10.3 G/DL (12.0-16.0); LYMPHOCYTES % (AUTO) 29.5 % (20.0-45.0); MEAN CORPUSCULAR VOLUME 84 FL (80-99); MONOCYTES % (AUTO) 9.2 % (1.0-10.0); NEUTROPHILS % (AUTO) 48.5 % (45.0-75.0); PLATELET COUNT 357 K/UL (150-450); RED BLOOD COUNT 3.81 M/UL (4.20-5.40); RED CELL DISTRIBUTION WIDTH 12.6 % (11.6-14.8); WHITE BLOOD COUNT 6.7 K/UL (4.8-10.8)
--- NOTE | 2019-08-16 09:39 | NUR ---
ED Nurse Note: DR NIEVES ORDERED TO HOLD OFF ON ABG. RT NOTIFIED.
--- NOTE | 2019-08-16 10:02 | NUR ---
ED Nurse Note: PT STATES SHE FEELS BETTER AFTER BREATHING TREATMENT. SATS 98-100 % IN ROOM AIR. SON STILL AT THE BED SIDE.
[2019-08-16 10:12] LABS: ANION GAP 11 mmol/L (5-15); BLOOD UREA NITROGEN 23 mg/dL (7-18); CALCIUM 8.6 MG/DL (8.5-10.1); CARBON DIOXIDE 25 MMOL/L (21-32); CHLORIDE 106 MMOL/L (98-107); CREATININE 0.9 MG/DL (0.55-1.30); POTASSIUM 3.9 MMOL/L (3.5-5.1); SODIUM 142 MMOL/L (136-145)
[2019-08-16 10:26] LABS: ALANINE AMINOTRANSFERASE 19 U/L (12-78); ALBUMIN 3.5 G/DL (3.4-5.0); ALBUMIN/GLOBULIN RATIO 0.9 (1.0-2.7); ALKALINE PHOSPHATASE 104 U/L (46-116); ASPARTATE AMINO TRANSFERASE 17 U/L (15-37); BILIRUBIN,TOTAL 0.2 MG/DL (0.2-1.0); CKMB 1.1 NG/ML (0.0-3.6); CREATINE KINASE 48 U/L (26-308)
--- NOTE | 2019-08-16 10:44 | Diagnostic Imaging Report ---
EXAM: XR Chest, 1 View CLINICAL HISTORY: SOB TECHNIQUE: Frontal view of the chest. COMPARISON: Chest x-ray, 04/07/19 FINDINGS: Lungs: Hyperinflated lungs may be COPD. Lungs clear. Pleural space: Unremarkable. No pneumothorax. Heart: Heart size limits normal. Mediastinum: Unremarkable. Bones/joints: Unremarkable. Vasculature: Aortic knob calcification. IMPRESSION: Hyperinflated lungs may be COPD. No acute process.
--- NOTE | 2019-08-16 11:14 | NUR ---
ED Nurse Note: REPEAT LACTIC ACID SPECIMEN SENT TO LAB.
[2019-08-16 11:15] VITALS: BP 161/59
--- NOTE | 2019-08-16 11:20 | NUR ---
ED Nurse Note: REPORT GIVEN TO PEREZ PLUNKETT OF TELEMETRY UNIT.
--- NOTE | 2019-08-16 11:22 | Consultation ---
History of Present Illness General Date patient seen: Aug 16, 2019 Time patient seen: 10:30 Chief Complaint: Asthma exacerbation, Referring physician: dr Camargo Reason for Consultation: asthma exacerbation, bronchitis Present Illness HPI 83 years old female with past medical history of asthma, diabetes mellitus, hypertension, hyperlipidemia, presented with complaint of shortness of breath accompanied by her son. Patient apparently had symptoms of upper respiratory infection with nasal congestion and cough, which were getting gradually worse. Cough productive with clear to yellow phlegm, no hemoptysis. Admits to chest tightness and wheezing. Chest discomfort with deep breathing. Patient denied fevers. Patient denied any recent traveling. Patient run out of her inhalers recently. Upon evaluation patient was afebrile , but tachypneic and hypoxic. Blood pressure was elevated Laboratory work-up revealed no leukocytosis, hemoglobin 10.3, hematocrit 31.9. BUN 23, creatinine 0.9. Lactic acid elevated - 2.7. Troponin negative. pro BNP 541. Chest x-ray revealed changes consistent with COPD, no acute cardiopulmonary pathology at this time. Pulmonology consult was requested to assist in management of this patient. Patient was seen and examined in emergency room. Son at the bedside Allergies: Coded Allergies: No Known Allergies (Unverified , 04/03/17) Medication History Scheduled Albuterol Sulfate* (Proair Hfa*), 1 PUFF INH Q6H, (Reported) Amlodipine Besylate (Norvasc), 5 MG ORAL DAILY, (Reported) Aspirin (Aspirin EC), 81 MG ORAL DAILY, (Reported) Losartan Potassium (Losartan Potassium), 25 MG PO DAILY, (Reported) Memantine Hcl* (Namenda*), 7 MG ORAL DAILY, (Reported) Metformin Hcl* (Metformin Hcl*), Unknown Dose ORAL TWICE A DAY, (Reported) Montelukast Sodium* (Montelukast Sodium*), 10 MG ORAL DAILY, (Reported) Omeprazole (Omeprazole), Unknown Dose ORAL DAILY, (Reported) Potassium Gluconate (Potassium), 25 MG PO DAILY, (Reported) Pravastatin Sod* (Pravastatin Sod*), 20 MG ORAL BEDTIME, (Reported) Simvastatin (Zocor), 20 MG ORAL BEDTIME, (Reported) Scheduled PRN Albuterol Sulfate* (Albuterol Sulfate Hhn*), 3 ML INH Q4H PRN for Shortness of Breath, (Reported) Discontinued Medications Cephalexin* (Keflex*), 500 MG ORAL EVERY 6 HOURS Discontinued Reason: Pt stopped taking med Famotidine* (Pepcid 20mg tablet*), 20 MG ORAL DAILY, (Reported) Discontinued Reason: Pt stopped taking med Pantoprazole* (Protonix*), 40 MG ORAL DAILY, (Reported) Discontinued Reason: Pt stopped taking med Patient History History Provided By: Patient, Family Member - son Healthcare decision maker Resuscitation status Advanced Directive on File Past Medical/Surgical History Past Medical/Surgical History: (1) Hyperlipidemia (2) Asthma (3) HTN (hypertension) (4) Diabetes mellitus (5) duodeno-cholecytic fistula (6) S/P cholecystectomy Review of Systems Constitutional: Reports: malaise, weakness Eye: Reports: no symptoms ENT: Reports: nose congestion, nasal discharge Respiratory: Reports: see HPI, cough, shortness of breath, wheezing, sputum Cardiovascular: Reports: see HPI Gastrointestinal: Reports: no symptoms Genitourinary: Reports: no symptoms Musculoskeletal: Reports: no symptoms Skin: Reports: no symptoms Psychiatric: Reports: no symptoms Endocrine: Reports: no symptoms Hematologic/Lymphatic: Reports: no symptoms Physical Exam General Appearance: other - mild resp distress, but able to speak in full sentences, frail elderly female Lines, tubes and drains: peripheral HEENT: normocephalic, atraumatic, anicteric, PERRL, no JVD Neck: supple Respiratory/Chest: decreased breath sounds - with few scattered expiratory wheezes Cardiovascular/Chest: normal peripheral pulses, normal rate, regular rhythm Abdomen: normal bowel sounds, non tender, soft Genitourinary/Rectal: normal prostate exam Extremities: non-tender, no calf tenderness, normal capillary refill Skin Exam: warm/dry Neurologic: no motor/sensory deficits, alert, oriented x 3, responsive Musculoskeletal: atrophy - BLE Last 24 Hour Vital Signs Date Time Temp Pulse Resp B/P (MAP) Pulse Ox O2 Delivery O2 Flow Rate FiO2 08/16/19 09:54 91 21 100 08/16/19 09:32 92 19 98 21 08/16/19 09:20 97.8 93 18 166/91 98 Room Air 08/16/19 09:20 93 18 Room Air 08/16/19 09:15 98.8 96 22 166/71 (102) 88 Room Air Laboratory Tests Test 08/16/19 09:25 White Blood Count 6.7 K/UL (4.8-10.8) Red Blood Count 3.81 M/UL (4.20-5.40) L Hemoglobin 10.3 G/DL (12.0-16.0) L Hematocrit 31.9 % (37.0-47.0) L Mean Corpuscular Volume 84 FL (80-99) Mean Corpuscular Hemoglobin 27.0 PG (27.0-31.0) Mean Corpuscular Hemoglobin Concent 32.3 G/DL (32.0-36.0) Red Cell Distribution Width 12.6 % (11.6-14.8) Platelet Count 357 K/UL (150-450) Mean Platelet Volume 5.8 FL (6.5-10.1) L Neutrophils (%) (Auto) 48.5 % (45.0-75.0) Lymphocytes (%) (Auto) 29.5 % (20.0-45.0) Monocytes (%) (Auto) 9.2 % (1.0-10.0) Eosinophils (%) (Auto) 11.0 % (0.0-3.0) H Basophils (%) (Auto) 1.8 % (0.0-2.0) Sodium Level 142 MMOL/L (136-145) Potassium Level 3.9 MMOL/L (3.5-5.1) Chloride Level 106 MMOL/L (98-107) Carbon Dioxide Level 25 MMOL/L (21-32) Anion Gap 11 mmol/L (5-15) Blood Urea Nitrogen 23 mg/dL (7-18) H Creatinine 0.9 MG/DL (0.55-1.30) Estimat Glomerular Filtration Rate mL/min (>60) Glucose Level 94 MG/DL (74-106) Lactic Acid Level 2.70 mmol/L (0.4-2.0) H Calcium Level 8.6 MG/DL (8.5-10.1) Total Bilirubin 0.2 MG/DL (0.2-1.0) Aspartate Amino Transf (AST/SGOT) 17 U/L (15-37) Alanine Aminotransferase (ALT/SGPT) 19 U/L (12-78) Alkaline Phosphatase 104 U/L (46-116) Total Creatine Kinase 48 U/L (26-308) Creatine Kinase MB 1.1 NG/ML (0.0-3.6) Creatine Kinase MB Relative Index 2.2 Troponin I 0.004 ng/mL (0.000-0.056) Pro-B-Type Natriuretic Peptide 541 pg/mL (0-125) H Total Protein 7.5 G/DL (6.4-8.2) Albumin 3.5 G/DL (3.4-5.0) Globulin 4.0 g/dL Albumin/Globulin Ratio 0.9 (1.0-2.7) L Microbiology Date/Time Source Procedure Growth Status 08/16/19 09:25 Nasal Nares - Final Complete 08/16/19 09:25 Nasal Nares - Final Complete Height (Feet): 4 Height (Inches): 2.00 Weight (Pounds): 85 Medications Current Medications Medications (Trade) Dose Ordered Sig/Lora Route PRN Reason Start Time Stop Time Status Last Admin Dose Admin Sodium Chloride 1,000 ml @ 999 mls/hr Q1H1M ONCE IV 08/16/19 10:45 08/16/19 11:45 08/16/19 10:37 Assessment/Plan Assessment/Plan: ASSESSMENT Acute hypoxemic RF due to asthma exacerbation Acute asthma exacerbation Acute purulent bronchitis Possible early pneumonia Lactic acidosis Mild dehydration Anemia Hypertension Diabetes mellitus Hyperlipidemia PLAN of CARE tele O2 titrate, HHN IV steroids and taper fast empiric abx a/tussive prn SCX if able trial of theophylline fup with CXR and ABG DVT prophylaxis venous Duplex resume home meds gentle IVF , monitor renal paraders, lytes, correct lytes as needed lactic acid will be repeated in ER monitor HH with goal to keep Hgb above 7, stool OB, CEA, iron panel, B 12 and folate BS management with SSI, check HgA1c , TSH, lipid panel bowel regimen supportive care case discussed and evaluated by supervising physician Karen العراقي NP Aug 16, 2019 11:22
[2019-08-16] MEDS ORDERED: Guaifenesin/DM 10ml syrup ORAL PRN (11:30)
[2019-08-16] MEDS ORDERED: Milk of Magnesia 30ml Ud ORAL PRN (11:30)
[2019-08-16] MEDS ORDERED: Albuterol/Ipratropium 3ml neb HHN PRN (11:30)
--- NOTE | 2019-08-16 11:30 | NUR ---
Received report from NORA Colmenares RN. Pt A/Ox4, ambulatory. Pt breathing unlabored in RA. Pt denies any pain. No s/sx of acute distress. Bilateral arm strength 5/5. IV site on right forearm patent and asymptomatic. Vital signs obtained (97.7F, HR 94, RR 16, BP 159/86, O2 sat 94%). Attached tele monitor. Bed on lowest position, call light within reach. Will continue plan of care.
--- NOTE | 2019-08-16 11:30 | NUR ---
ED Nurse Note: PT TRANSFERRED TO TELEMETRY UNIT WITH ALL HER BELONGINGS. STABLE IN CONDITION.
[2019-08-16 12:00] VITALS: BP 159/86
[2019-08-16] MEDS: cefTRIAXone 1 GM in D5W 55 ML IVPB SCH (13:00)
--- NOTE | 2019-08-16 13:53 | Cardiac Electrophysiology PN ---
Subjective Subjective [id number] Objective Last 24 Hour Vital Signs Date Time Temp Pulse Resp B/P (MAP) Pulse Ox O2 Delivery O2 Flow Rate FiO2 08/16/19 12:32 Room Air Room Air 08/16/19 11:30 98.2 78 15 161/59 98 Room Air 21 08/16/19 11:15 98.2 78 15 161/59 98 Room Air 08/16/19 09:54 91 21 100 08/16/19 09:32 92 19 98 21 08/16/19 09:20 97.8 93 18 166/91 98 Room Air 08/16/19 09:20 93 18 Room Air 08/16/19 09:15 98.8 96 22 166/71 (102) 88 Room Air Laboratory Tests Test 08/16/19 09:25 08/16/19 11:15 08/16/19 11:22 White Blood Count 6.7 K/UL (4.8-10.8) Red Blood Count 3.81 M/UL (4.20-5.40) L Hemoglobin 10.3 G/DL (12.0-16.0) L Hematocrit 31.9 % (37.0-47.0) L Mean Corpuscular Volume 84 FL (80-99) Mean Corpuscular Hemoglobin 27.0 PG (27.0-31.0) Mean Corpuscular Hemoglobin Concent 32.3 G/DL (32.0-36.0) Red Cell Distribution Width 12.6 % (11.6-14.8) Platelet Count 357 K/UL (150-450) Mean Platelet Volume 5.8 FL (6.5-10.1) L Neutrophils (%) (Auto) 48.5 % (45.0-75.0) Lymphocytes (%) (Auto) 29.5 % (20.0-45.0) Monocytes (%) (Auto) 9.2 % (1.0-10.0) Eosinophils (%) (Auto) 11.0 % (0.0-3.0) H Basophils (%) (Auto) 1.8 % (0.0-2.0) Sodium Level 142 MMOL/L (136-145) Potassium Level 3.9 MMOL/L (3.5-5.1) Chloride Level 106 MMOL/L (98-107) Carbon Dioxide Level 25 MMOL/L (21-32) Anion Gap 11 mmol/L (5-15) Blood Urea Nitrogen 23 mg/dL (7-18) H Creatinine 0.9 MG/DL (0.55-1.30) Estimat Glomerular Filtration Rate mL/min (>60) Glucose Level 94 MG/DL (74-106) Lactic Acid Level 2.70 mmol/L (0.4-2.0) H 1.40 mmol/L (0.66-2.22) Calcium Level 8.6 MG/DL (8.5-10.1) Total Bilirubin 0.2 MG/DL (0.2-1.0) Aspartate Amino Transf (AST/SGOT) 17 U/L (15-37) Alanine Aminotransferase (ALT/SGPT) 19 U/L (12-78) Alkaline Phosphatase 104 U/L (46-116) Total Creatine Kinase 48 U/L (26-308) Creatine Kinase MB 1.1 NG/ML (0.0-3.6) Creatine Kinase MB Relative Index 2.2 Troponin I 0.004 ng/mL (0.000-0.056) Pro-B-Type Natriuretic Peptide 541 pg/mL (0-125) H Total Protein 7.5 G/DL (6.4-8.2) Albumin 3.5 G/DL (3.4-5.0) Globulin 4.0 g/dL Albumin/Globulin Ratio 0.9 (1.0-2.7) L Arterial Blood pH 7.371 (7.350-7.450) Arterial Blood Partial Pressure CO2 35.2 mmHg (35.0-45.0) Arterial Blood Partial Pressure O2 76.2 mmHg (75.0-100.0) Arterial Blood HCO3 19.9 mmol/L (22.0-26.0) L Arterial Blood Oxygen Saturation 94.9 % (95-100) L Arterial Blood Base Excess -4.7 (-2-2) L Braden Test Positive Microbiology Date/Time Source Procedure Growth Status 08/16/19 09:25 Nasal Nares - Final Complete 08/16/19 09:25 Nasal Nares - Final Complete Mikey Plascencia MD Aug 16, 2019 13:53
--- NOTE | 2019-08-16 13:54 | History & Physical ---
History and Physical History & Physicial Dictated for Int Med-DR Camargo no. [id number]. Isaías Atwood MD Aug 16, 2019 13:54
--- NOTE | 2019-08-16 14:13 | Diagnostic Imaging Report ---
EXAM: US Duplex Bilateral Lower Extremities Veins CLINICAL HISTORY: SOB TECHNIQUE: Real-time duplex ultrasound scan of the bilateral lower extremity veins integrating B-mode two-dimensional vascular structure, Doppler spectral analysis, color flow Doppler imaging and compression. COMPARISON: No relevant prior studies available. FINDINGS: Right deep veins: Unremarkable. No DVT in the right common femoral, femoral, proximal deep femoral or popliteal veins. The veins demonstrate normal color flow, are normally compressible, with normal phasic flow and/or augmentation response. Right superficial veins: Unremarkable. No thrombus in the visualized right great saphenous vein. Left deep veins: Unremarkable. No DVT in the left common femoral, femoral, proximal deep femoral or popliteal veins. The veins demonstrate normal color flow, are normally compressible, with normal phasic flow and/or augmentation response. Left superficial veins: Unremarkable. No thrombus in the visualized left great saphenous vein. Soft tissues: No acute findings. No popliteal cyst. IMPRESSION: Normal bilateral lower extremity duplex venous ultrasound.
[2019-08-16] MEDS: Solu-MEDROL 40mg Inj IVP SCH ×2 (14:26→20:54)
[2019-08-16] MEDS: Azithromycin 500 MG in D5W 275 ML IV SCH (14:26)
[2019-08-16 16:00] VITALS: BP 139/60
--- NOTE | 2019-08-16 17:20 | NUR ---
CASE MANAGEMENT: INITIAL REVIEW 83 YO F PRESENTED TO OUR ED FROM HOME CC: SOB X1 DAY PMHx: ASTHMA. HTN. DM. SI: PNA. ACUTE RESP FAILURE. T 98.8 HR 96 RR 22 B/P 166/71 SATS 88% ON RA LABS: BUN 23 BNP 541 IS: NS BOLUS X1 PROVENTIL HHN X1 ATROVENT HHN X1 SOLU MEDROL IV X1 PATIENT ADMITTED TO TELE 08/16/2019 @ 0954 DCP: PATIENT TO BE DISCHARGED TO HOME ONCE MEDICALLY CLEARED. INTERQUAL MET
[2019-08-16] MEDS: metFORMIN 500mg tab ORAL SCH (17:21)
[2019-08-16 19:01] LABS: APPEARANCE,URINE CLEAR; BILIRUBIN, URINE NEGATIVE (NEGATIVE); COLOR,URINE PALE YELLOW; GLUCOSE, URINE (UA) 4+ (NEGATIVE); KETONES,URINE NEGATIVE (NEGATIVE); LEUKOCYTE ESTERASE ,URINE NEGATIVE (NEGATIVE); NITRITE,URINE NEGATIVE (NEGATIVE); PH,URINE 5 (4.5-8.0); PROTEIN,URINE 2+ (NEGATIVE); UROBILINOGEN,URINE NORMAL MG/DL (0.0-1.0)
--- NOTE | 2019-08-16 19:52 | NUR ---
HAND-OFF: Report given to DIMITRIOS Guevara. Pt in stable condition. Endorsed plan of care.
--- NOTE | 2019-08-16 19:53 | NUR ---
NURSE NOTES: Received report from Ericka PLUNKETT. PT is resting in the bed w.o any discomfort noted. AO x4 calm and comfortable. Denies any pain. Bed alarm is on. Call light is within reach. Rails are up x3. Will follow the plan of care.
[2019-08-16] MEDS: Heparin 5000 units/ml inj SUBQ SCH (20:54)
[2019-08-16] MEDS: Theophylline 80mg/15ml ORAL SCH (20:54)
[2019-08-16] MEDS: Docusate 100mg cap ORAL SCH (20:54)
--- NOTE | 2019-08-16 22:00 | Consultation ---
DATE OF CONSULTATION: 08/16/2019 CARDIOLOGY CONSULTATION CONSULTING PHYSICIAN: Mikey Plascencia M.D. REFERRING PHYSICIAN: Logan Camargo M.D. REASON FOR CONSULTATION: Management of hypertension and congestive heart failure. HISTORY OF PRESENT ILLNESS: The patient is an 83-year-old lady with history of hypertension, diabetes, and hyperlipidemia, as well as history of asthma and congestive heart failure presented to the emergency room with increasing shortness of breath accompanied by her son. The patient also has some nasal congestion and cough, that is gradually getting worse. The patient also has some chest tightness and wheezing. The patient denies any fever, nausea, vomiting, or diaphoresis. In the ER, the patient was tachypneic and hypoxic and blood pressure was elevated. Her BNP was also 541. Lactic acid was elevated at 2.7. A chest x-ray was consistent with chronic obstructive pulmonary disease. REVIEW OF SYSTEMS: Review of systems was negative other than what is mentioned in the history of present illness. PAST MEDICAL HISTORY: As mentioned above. FAMILY HISTORY: Noncontributory. SOCIAL HISTORY: She lives at home. Does not smoke or drink alcohol. MEDICATIONS: Per reconciliation, but includes Norvasc 5 mg daily, aspirin 81 mg daily, losartan 25 mg daily, Zocor, and metformin. PHYSICAL EXAMINATION: VITAL SIGNS: Show blood pressure of 116/60, pulse is 78, respirations 18, and temperature 98.2. HEAD AND NECK: Shows mild JVD. LUNGS: Coarse rhonchi and scattered wheezes. CARDIOVASCULAR: Shows regular S1 and S2 with no gallop or murmur. ABDOMEN: Soft. EXTREMITIES: No pitting edema. LABORATORY DATA: Labs show white count of 6.7, hemoglobin of 10.2, hematocrit of 32, and platelet count is 357,000. Sodium is 142, potassium is 3.9, BUN of 23, creatinine 0.9, and glucose of 94. Troponin is negative. Lactic acid 2.7. ASSESSMENT AND PLAN: 1. Shortness of breath, likely due to combination of congestive heart failure and possible pneumonia as well as lactic acid is elevated. We will start the patient on Lasix 20 mg IV b.i.d. We will watch the renal function. Get an echocardiogram to rule out of ejection fraction and wall motion abnormality. 2. History of hypertension. On losartan 25 mg daily and Norvasc 5 mg daily and Lasix. 3. Chronic obstructive pulmonary disease. On theophylline and azithromycin and Solu-Medrol and ceftriaxone. 4. Hyperlipidemia. On Pravachol. Thank you very much, Dr. Camargo, for allowing me to participate in the care of this patient. Please do not hesitate to contact me for any questions regarding my evaluation. Mikey Plascencia M.D. DR: RAIZA JOB#: [id number] CC:
--- NOTE | 2019-08-16 23:00 | History and Physical Report ---
DATE OF ADMISSION: 08/16/2019 CHIEF COMPLAINT: The patient is an 83-year-old female, who presents with a chief complaint of shortness of breath. HISTORY OF PRESENT ILLNESS: Began three days prior to admission. The patient began to experience a nonproductive cough. The patient then began to develop shortness of breath. The patient presented to [facility] emergency room. The patient was admitted with shortness of breath and nonproductive cough to rule out pneumonia. REVIEW OF SYSTEMS: CONSTITUTIONAL: The patient denies weight loss or weight gain. The patient denies fevers or chills. HEENT: The patient denies ear or throat pain. The patient denies headache. CARDIOVASCULAR: The patient denies palpitations or chest pain. CHEST: The patient complains of shortness of breath as above. The patient complains of cough as above. The patient denies wheezes. ABDOMEN: The patient denies nausea, vomiting, diarrhea, or constipation. GENITOURINARY: The patient denies dysuria or increased frequency of urination. NEUROMUSCULAR: The patient denies seizures or generalized weakness. PAST MEDICAL HISTORY: Significant for: 1. Type 2 diabetes. 2. Hypertension. 3. Hypercholesterolemia. 4. Asthma. 5. Arthritis. 6. Osteoporosis. PAST SURGICAL HISTORY: Significant for: 1. In March of 2019 open cholecystectomy. 2. Total abdominal hysterectomy and oophorectomy. 3. Bilateral cataract surgery. CURRENT MEDICATIONS: 1. Albuterol metered-dose inhaler two puffs p.o. 4 times a day p.r.n. 2. Amlodipine 5 mg p.o. daily. 3. Aspirin 81 mg p.o. daily. 4. Losartan 25 mg p.o. daily. 5. Namenda 5 mg p.o. daily. 6. Metformin 500 mg p.o. twice daily. 7. Singulair 10 mg p.o. daily. 8. Omeprazole 20 mg p.o. daily. 9. Pravastatin 20 mg p.o. at bedtime. ALLERGIES: No known drug allergies. SOCIAL HISTORY: The patient is single and lives with her adult son. The patient denies tobacco or alcohol use. PHYSICAL EXAMINATION: VITAL SIGNS: Temperature 97.8, respirations 18, pulse 93, blood pressure 166/91, and pulse ox 98% on room air. GENERAL: The patient is a well-developed and well-nourished thin-appearing female, in no apparent distress. HEENT: Eyes, pupils are equal and responsive to light and accommodation. Extraocular movements are intact. NECK: Supple without lymphadenopathy. CHEST: Lungs with decreased breath sounds at bilateral bases. Otherwise, without wheezes or rales. CARDIOVASCULAR: Regular rhythm and rate. S1, S2 normal without murmurs, rubs, or gallops. ABDOMEN: Soft, nontender, and nondistended. Positive bowel sounds. No evidence of hepatosplenomegaly. Currently, no rebound or guarding noted. EXTREMITIES: Negative for clubbing, cyanosis, or edema. RECTAL/GENITAL: Not performed. NEUROLOGIC: Cranial nerves II through XII are grossly intact without focal deficits. Motor strength is 5/5 bilaterally. Deep tendon reflexes are 2+ plantar. LABORATORY STUDIES: WBC 6.7, hemoglobin 10.3, hematocrit 31.9, and platelets 357,000. Sodium 142, potassium 3.9, chloride 106, CO2 25, BUN 23, creatinine 0.9, and glucose 94. Lactic acid 2.7. Troponin 0.004. BNP elevated at 541. Chest x-ray was reported as hyperinflation consistent with chronic obstructive pulmonary disease versus asthma. ASSESSMENT: This is an 83-year-old female. 1. Shortness of breath. 2. Cough. 3. Congestive heart failure. 4. Acute exacerbation of asthma with bronchitis. 5. Type 2 diabetes. 6. Hypertension. 7. Hypercholesteremia. 8. Asthma. 9. Arthritis. 10. Osteoporosis. TREATMENT: 1. Shortness of breath/exacerbation of asthma. A Pulmonary consultation has been obtained with Dr. Dony Eli. The patient has been started empirically on intravenous Solu-Medrol. The patient has also been started on ceftriaxone. We will follow recommendations of Pulmonary. 2. Congestive heart failure. A Cardiology consultation has been obtained with Dr. Mikey Plascencia. An echocardiogram is pending. We will follow recommendations of Cardiology. 3. Diabetes type 2. Continue metformin as above. NovoLog sliding scale has been instituted, as hyperglycemia is common with intravenous Solu-Medrol use. 4. Hypertension. Continue amlodipine and losartan as above. 5. Hypercholesterolemia. Continue pravastatin as above. 6. Arthritis. 7. Osteoporosis. Isaías Atwood M.D. DR: GILBERT JOB#: [id number] CC:
[2019-08-17] VITALS: BP 129/64
[2019-08-17 04:00] VITALS: BP 145/68
[2019-08-17] MEDS: Solu-MEDROL 40mg Inj IVP SCH ×2 (07:06→20:58)
--- NOTE | 2019-08-17 07:51 | NUR ---
HAND-OFF: Report given to Deirdre PLUNKETT.
[2019-08-17 08:00] VITALS: BP 137/67
--- NOTE | 2019-08-17 08:05 | NUR ---
NURSE NOTES: Recvd nurse. Pt is AOx4 [place] speaking. Pt is on room air and showing SR on cardiac monitor technician. IV is right FA 20g running 1/2NS @ 50/hr. Bed in lowest position, call light within reach, will continue with plan of care
[2019-08-17 08:38] LABS: BASOPHILS % (AUTO) 0.3 % (0.0-2.0); HEMATOCRIT 29.3 % (37.0-47.0); HEMOGLOBIN 9.6 G/DL (12.0-16.0); LYMPHOCYTES % (AUTO) 20.8 % (20.0-45.0); MEAN CORPUSCULAR VOLUME 83 FL (80-99); MONOCYTES % (AUTO) 7.1 % (1.0-10.0); NEUTROPHILS % (AUTO) 71.8 % (45.0-75.0); PLATELET COUNT 300 K/UL (150-450); RED BLOOD COUNT 3.53 M/UL (4.20-5.40); RED CELL DISTRIBUTION WIDTH 12.6 % (11.6-14.8)
--- NOTE | 2019-08-17 08:40 | Diagnostic Imaging Report ---
EXAM: XR Chest, 1 View CLINICAL HISTORY: SOB TECHNIQUE: Frontal view of the chest. COMPARISON: chest x-ray 08/16/19 946 FINDINGS: Lungs: Mild central vascular congestion. No focal infiltrate or consolidation. Pleural space: Unremarkable. No pneumothorax. Heart: Stable cardiomegaly. Mediastinum: Unremarkable. Bones/joints: Unremarkable. Vasculature: Aortic knob calcification. IMPRESSION: Cardiomegaly. Mild central vascular congestion. No focal infiltrate or consolidation.
[2019-08-17] MEDS: Montelukast 10mg tablet ORAL SCH (08:55)
[2019-08-17] MEDS: Theophylline 80mg/15ml ORAL SCH ×2 (08:56→21:00)
[2019-08-17] MEDS: Losartan 25mg tab ORAL SCH (08:56)
[2019-08-17] MEDS: Aspirin EC 81mg tab ORAL SCH (08:56)
[2019-08-17] MEDS: metFORMIN 500mg tab ORAL SCH ×2 (08:56→17:23)
[2019-08-17] MEDS: Docusate 100mg cap ORAL SCH ×2 (08:56→20:59)
[2019-08-17] MEDS: Heparin 5000 units/ml inj SUBQ SCH ×2 (08:59→21:01)
--- NOTE | 2019-08-17 08:59 | NUR ---
RESPIRATORY NOTE: pt refused ABG. DIMITRIOS lópez
[2019-08-17] MEDS ORDERED: Memantine 10mg tab ORAL SCH (09:00)
[2019-08-17 09:09] LABS: ANION GAP 5 mmol/L (5-15); BLOOD UREA NITROGEN 31 mg/dL (7-18); CALCIUM 8.9 MG/DL (8.5-10.1); CARBON DIOXIDE 28 MMOL/L (21-32); CHLORIDE 107 MMOL/L (98-107); CHOLESTEROL 185 MG/DL (< 200); CREATININE 0.8 MG/DL (0.55-1.30); FERRITIN 10 NG/ML (8-388); HDL CHOLESTEROL 94 MG/DL (40-60); POTASSIUM 4.4 MMOL/L (3.5-5.1); SODIUM 140 MMOL/L (136-145); TRIGLYCERIDES 44 MG/DL (30-150)
[2019-08-17 10:11] LABS: % IRON SATURATION 6 % (15-50); IRON 20 ug/dL (50-175); TOTAL IRON BINDING CAPACITY 346 ug/dL (250-450)
--- NOTE | 2019-08-17 10:28 | Pulmonology Progress Note ---
Assessment/Plan Assessment/Plan ASSESSMENT Acute hypoxemic RF due to asthma exacerbation and CHF Acute asthma exacerbation Acute purulent bronchitis Doubt PNA (given negative CXR, no fevers, no leukocytosis) CHF Lactic acidosis Mild dehydration Anemia Hypertension Diabetes mellitus Hyperlipidemia Low TSH PLAN of CARE tele O2 titrate, HHN IV steroids and taper fast empiric abx a/tussive prn SCX P influenza swab negative doubt PNA, given negative CXR, clinical improvement , no fevers, no leukocytosis trial of theophylline ABG stable on RA CXR no evidence of PNA , + vasc congestion DVT prophylaxis venous Duplex negative off IVF , cardio eval appreciated ECHO pending started on diuresis with close monitoring of volumes and cardiorenal parametrs home meds resumed monitor HH with goal to keep Hgb above 7, stool OB, CEA, iron panel, B 12 and folate BS management with SSI, HgA1c -6.5, at goal TSH low, check T4 and T3 , lipid panel stable bowel regimen supportive care case discussed and evaluated by supervising physician Subjective Allergies: Coded Allergies: No Known Allergies (Unverified , 04/03/17) Subjective reports feeling better pulse ox stable on RA no fevers, no leukocytosis seen by cardio and started on diuretic Objective Last 24 Hour Vital Signs Date Time Temp Pulse Resp B/P (MAP) Pulse Ox O2 Delivery O2 Flow Rate FiO2 08/17/19 09:27 105 20 96 Room Air 21 08/17/19 08:56 137/67 08/17/19 08:56 71 137/67 08/17/19 08:41 Room Air Room Air 08/17/19 08:00 98.1 71 19 137/67 (90) 95 08/17/19 04:00 97 08/17/19 04:00 98.4 77 20 145/68 (93) 96 08/17/19 00:00 89 08/17/19 00:00 98.0 91 20 129/64 (85) 93 08/16/19 21:00 Room Air Room Air 08/16/19 20:00 99 08/16/19 16:25 85 08/16/19 16:00 97.8 88 16 139/60 (86) 94 08/16/19 12:32 Room Air Room Air 08/16/19 12:16 78 08/16/19 12:00 97.5 94 16 159/86 (110) 94 08/16/19 11:30 98.2 78 15 161/59 98 Room Air 21 08/16/19 11:15 98.2 78 15 161/59 98 Room Air Intake and Output 08/16/19 08/17/19 19:00 07:00 Intake Total 480 ml Balance 480 ml Intake Oral 480 ml # Voids 5 1 Objective General Appearance: frail elderly female in NAD Lines, tubes and drains: peripheral HEENT: normocephalic, atraumatic, anicteric, PERRL, no JVD Neck: supple Respiratory/Chest: decreased breath sounds - with f occasional isolated expiratory wheezes Cardiovascular/Chest: normal peripheral pulses, normal rate, regular rhythm Abdomen: normal bowel sounds, non tender, soft Genitourinary/Rectal: normal prostate exam Extremities: non-tender, no calf tenderness, normal capillary refill Skin Exam: warm/dry Neurologic: no motor/sensory deficits, alert, oriented x 3, responsive Musculoskeletal: atrophy - BLE Microbiology Date/Time Source Procedure Growth Status 08/16/19 16:00 Sputum Expectorated Gram Stain - Final Resulted 08/16/19 16:00 Sputum Expectorated Sputum Culture Pending Resulted 08/16/19 09:25 Nasal Nares - Final Complete 08/16/19 09:25 Nasal Nares - Final Complete Laboratory Tests 08/16/19 11:15: Lactic Acid Level 1.40 08/16/19 11:22: Arterial Blood pH 7.371, Arterial Blood Partial Pressure CO2 35.2, Arterial Blood Partial Pressure O2 76.2, Arterial Blood HCO3 19.9L, Arterial Blood Oxygen Saturation 94.9L, Arterial Blood Base Excess -4.7L, Braden Test Positive 08/16/19 16:15: Urine Color Pale yellow, Urine Appearance Clear, Urine pH 5, Urine Specific [place] 1.015, Urine Protein 2+H, Urine Glucose (UA) 4+H, Urine Ketones Negative , Urine Blood Negative, Urine Nitrite Negative, Urine Bilirubin Negative, Urine Urobilinogen Normal, Urine Leukocyte Esterase Negative, Urine RBC 0-2, Urine WBC 0-2, Urine Squamous Epithelial Cells Few, Urine Bacteria None 08/17/19 07:00: White Blood Count 5.0, Red Blood Count 3.53L, Hemoglobin 9.6L, Hematocrit 29.3L , Mean Corpuscular Volume 83, Mean Corpuscular Hemoglobin 27.2, Mean Corpuscular Hemoglobin Concent 32.8, Red Cell Distribution Width 12.6, Platelet Count 300, Mean Platelet Volume 6.0L, Neutrophils (%) (Auto) 71.8, Lymphocytes ( %) (Auto) 20.8, Monocytes (%) (Auto) 7.1, Eosinophils (%) (Auto) 0.0, Basophils (%) (Auto) 0.3, Sodium Level 140, Potassium Level 4.4, Chloride Level 107, Carbon Dioxide Level 28, Anion Gap 5, Blood Urea Nitrogen 31H, Creatinine 0.8, Estimat Glomerular Filtration Rate , Glucose Level 144H, Hemoglobin A1c 6.5H, Calcium Level 8.9, Iron Level 20L, Total Iron Binding Capacity 346, Percent Iron Saturation 6L, Unsaturated Iron Binding 326, Ferritin 10, Troponin I 0.000 , Pro-B-Type Natriuretic Peptide 1479H, Triglycerides Level 44, Cholesterol Level 185, LDL Cholesterol 80, HDL Cholesterol 94H, Cholesterol/HDL Ratio 2.0L, Carcinoembryonic Antigen [Pending], Vitamin B12 Level 548, RBC Folate Hemolysate [Pending], Red Blood Cell Folate [Pending], Thyroid Stimulating Hormone (TSH) 0.311L Current Medications Medications (Trade) Dose Ordered Sig/Lora Route PRN Reason Start Time Stop Time Status Last Admin Dose Admin Acetaminophen (Tylenol) 650 mg Q4H PRN ORAL Mild Pain (Pain Scale 1-3) 08/16/19 11:30 09/15/19 11:29 Albuterol/ Ipratropium (Albuterol/ Ipratropium) 3 ml EVERY 4 HOURS PRN HHN Shortness of Breath 08/16/19 11:30 08/21/19 11:29 Amlodipine Besylate (Norvasc) 5 mg DAILY ORAL 08/17/19 09:00 09/16/19 08:59 08/17/19 08:56 Aspirin (Ecotrin) 81 mg DAILY ORAL 08/17/19 09:00 09/16/19 08:59 08/17/19 08:56 Azithromycin 500 mg/Dextrose 275 ml @ 275 mls/hr Q24HRS IV 08/16/19 14:00 08/22/19 14:59 08/16/19 14:26 Ceftriaxone Sodium 1 gm/ Dextrose 55 ml @ 110 mls/hr Q24H IVPB 08/16/19 13:00 08/23/19 12:59 08/16/19 13:00 Dextrose (Dextrose 50%) 25 ml Q30M PRN IV Hypoglycemia 08/16/19 11:30 09/15/19 11:29 Dextrose (Dextrose 50%) 50 ml Q30M PRN IV Hypoglycemia 08/16/19 11:30 09/15/19 11:29 Docusate Sodium (Colace) 100 mg EVERY 12 HOURS ORAL 08/16/19 21:00 09/15/19 20:59 08/17/19 08:56 Famotidine (Pepcid) 20 mg DAILY ORAL 08/17/19 09:00 09/16/19 08:59 08/17/19 08:56 Furosemide (Lasix) 20 mg EVERY 12 HOURS IV 08/16/19 21:00 09/15/19 20:59 08/17/19 08:57 Guaifenesin/ Dextromethorphan (Robitussin DM Syrup) 10 ml Q4H PRN ORAL For Cough 08/16/19 11:30 09/15/19 11:29 Heparin Sodium (Porcine) (Heparin 5000 units/ml) 5,000 units EVERY 12 HOURS SUBQ 08/16/19 21:00 09/15/19 20:59 08/17/19 08:59 Losartan Potassium (Cozaar) 25 mg DAILY ORAL 08/17/19 09:00 09/16/19 08:59 08/17/19 08:56 Magnesium Hydroxide (Mom) 30 ml HSPRN PRN ORAL Constipation 08/16/19 11:30 09/15/19 11:29 Memantine (Namenda) 7 mg DAILY ORAL 08/17/19 09:00 09/16/19 08:59 UNV Metformin HCl (Glucophage) 500 mg TWICE A DAY ORAL 08/16/19 18:00 09/15/19 17:59 08/17/19 08:56 Methylprednisolone Sodium Succinate (Solu-MEDROL) 40 mg EVERY 8 HOURS IVP 08/16/19 14:00 09/15/19 13:59 08/17/19 07:06 Montelukast Sodium (Singulair) 10 mg DAILY ORAL 08/17/19 09:00 09/16/19 08:59 08/17/19 08:55 Pravastatin Sodium (Pravachol) 20 mg BEDTIME ORAL 08/16/19 21:00 09/15/19 20:59 08/16/19 20:54 Sodium Chloride 1,000 ml @ 50 mls/hr Q20H IV 08/16/19 12:00 09/15/19 11:59 08/17/19 08:00 Temazepam (Restoril) 15 mg DAILYPRN PRN ORAL Insomnia 08/16/19 11:30 08/23/19 11:29 Theophylline (Theophylline) 100 mg EVERY 12 HOURS ORAL 08/16/19 21:00 09/15/19 20:59 08/17/19 08:56 Karen العراقي [employer]ER Aug 17, 2019 10:28
[2019-08-17 12:00] VITALS: BP 137/62
[2019-08-17] MEDS: cefTRIAXone 1 GM in D5W 55 ML IVPB SCH (13:18)
--- NOTE | 2019-08-17 13:18 | Internal Med Progress Note ---
Subjective Date of Service: Aug 17, 2019 Physician Name AtwoodIsaías Attending Physician Logan Camargo MD Current Medications Medications (Trade) Dose Ordered Sig/Lora Route PRN Reason Start Time Stop Time Status Last Admin Dose Admin Acetaminophen (Tylenol) 650 mg Q4H PRN ORAL Mild Pain (Pain Scale 1-3) 08/16/19 11:30 09/15/19 11:29 Albuterol/ Ipratropium (Albuterol/ Ipratropium) 3 ml EVERY 4 HOURS PRN HHN Shortness of Breath 08/16/19 11:30 08/21/19 11:29 Amlodipine Besylate (Norvasc) 5 mg DAILY ORAL 08/17/19 09:00 09/16/19 08:59 08/17/19 08:56 Aspirin (Ecotrin) 81 mg DAILY ORAL 08/17/19 09:00 09/16/19 08:59 08/17/19 08:56 Azithromycin 500 mg/Dextrose 275 ml @ 275 mls/hr Q24HRS IV 08/16/19 14:00 08/22/19 14:59 08/16/19 14:26 Ceftriaxone Sodium 1 gm/ Dextrose 55 ml @ 110 mls/hr Q24H IVPB 08/16/19 13:00 08/23/19 12:59 08/16/19 13:00 Dextrose (Dextrose 50%) 25 ml Q30M PRN IV Hypoglycemia 08/16/19 11:30 09/15/19 11:29 Dextrose (Dextrose 50%) 50 ml Q30M PRN IV Hypoglycemia 08/16/19 11:30 09/15/19 11:29 Docusate Sodium (Colace) 100 mg EVERY 12 HOURS ORAL 08/16/19 21:00 09/15/19 20:59 08/17/19 08:56 Famotidine (Pepcid) 20 mg DAILY ORAL 08/17/19 09:00 09/16/19 08:59 08/17/19 08:56 Furosemide (Lasix) 20 mg EVERY 12 HOURS IV 08/16/19 21:00 09/15/19 20:59 08/17/19 08:57 Guaifenesin/ Dextromethorphan (Robitussin DM Syrup) 10 ml Q4H PRN ORAL For Cough 08/16/19 11:30 09/15/19 11:29 Heparin Sodium (Porcine) (Heparin 5000 units/ml) 5,000 units EVERY 12 HOURS SUBQ 08/16/19 21:00 09/15/19 20:59 08/17/19 08:59 Losartan Potassium (Cozaar) 25 mg DAILY ORAL 08/17/19 09:00 09/16/19 08:59 08/17/19 08:56 Magnesium Hydroxide (Mom) 30 ml HSPRN PRN ORAL Constipation 08/16/19 11:30 09/15/19 11:29 Memantine (Namenda) 7 mg DAILY ORAL 08/17/19 09:00 09/16/19 08:59 UNV Metformin HCl (Glucophage) 500 mg TWICE A DAY ORAL 08/16/19 18:00 09/15/19 17:59 08/17/19 08:56 Methylprednisolone Sodium Succinate (Solu-MEDROL) 40 mg Q12HR IVP 08/17/19 21:00 09/15/19 13:59 Montelukast Sodium (Singulair) 10 mg DAILY ORAL 08/17/19 09:00 09/16/19 08:59 08/17/19 08:55 Pravastatin Sodium (Pravachol) 20 mg BEDTIME ORAL 08/16/19 21:00 09/15/19 20:59 08/16/19 20:54 Temazepam (Restoril) 15 mg DAILYPRN PRN ORAL Insomnia 08/16/19 11:30 08/23/19 11:29 Theophylline (Theophylline) 100 mg EVERY 12 HOURS ORAL 08/16/19 21:00 09/15/19 20:59 08/17/19 08:56 Allergies: Coded Allergies: No Known Allergies (Unverified , 04/03/17) ROS Limited/Unobtainable: Yes Subjective 83 YO F admitted with dyspnea. Now acute asthma exacerbation and CHF. Cover for Int Marcelo-Dr Camargo Objective Last Vital Signs Date Time Temp Pulse Resp B/P (MAP) Pulse Ox O2 Delivery O2 Flow Rate FiO2 08/17/19 12:00 97.8 83 18 137/62 (87) 97 08/17/19 09:27 Room Air 21 Laboratory Tests Test 08/16/19 16:15 08/17/19 07:00 Urine Color Pale yellow Urine Appearance Clear Urine pH 5 (4.5-8.0) Urine Specific [place] 1.015 (1.005-1.035) Urine Protein 2+ (NEGATIVE) H Urine Glucose (UA) 4+ (NEGATIVE) H Urine Ketones Negative (NEGATIVE) Urine Blood Negative (NEGATIVE) Urine Nitrite Negative (NEGATIVE) Urine Bilirubin Negative (NEGATIVE) Urine Urobilinogen Normal MG/DL (0.0-1.0) Urine Leukocyte Esterase Negative (NEGATIVE) Urine RBC 0-2 /HPF (0 - 2) Urine WBC 0-2 /HPF (0 - 2) Urine Squamous Epithelial Cells Few /LPF (NONE/OCC) Urine Bacteria None /HPF (NONE) White Blood Count 5.0 K/UL (4.8-10.8) Red Blood Count 3.53 M/UL (4.20-5.40) L Hemoglobin 9.6 G/DL (12.0-16.0) L Hematocrit 29.3 % (37.0-47.0) L Mean Corpuscular Volume 83 FL (80-99) Mean Corpuscular Hemoglobin 27.2 PG (27.0-31.0) Mean Corpuscular Hemoglobin Concent 32.8 G/DL (32.0-36.0) Red Cell Distribution Width 12.6 % (11.6-14.8) Platelet Count 300 K/UL (150-450) Mean Platelet Volume 6.0 FL (6.5-10.1) L Neutrophils (%) (Auto) 71.8 % (45.0-75.0) Lymphocytes (%) (Auto) 20.8 % (20.0-45.0) Monocytes (%) (Auto) 7.1 % (1.0-10.0) Eosinophils (%) (Auto) 0.0 % (0.0-3.0) Basophils (%) (Auto) 0.3 % (0.0-2.0) Sodium Level 140 MMOL/L (136-145) Potassium Level 4.4 MMOL/L (3.5-5.1) Chloride Level 107 MMOL/L (98-107) Carbon Dioxide Level 28 MMOL/L (21-32) Anion Gap 5 mmol/L (5-15) Blood Urea Nitrogen 31 mg/dL (7-18) H Creatinine 0.8 MG/DL (0.55-1.30) Estimat Glomerular Filtration Rate mL/min (>60) Glucose Level 144 MG/DL (74-106) H Hemoglobin A1c 6.5 % (4.3-6.0) H Calcium Level 8.9 MG/DL (8.5-10.1) Iron Level 20 ug/dL (50-175) L Total Iron Binding Capacity 346 ug/dL (250-450) Percent Iron Saturation 6 % (15-50) L Unsaturated Iron Binding 326 ug/dL (112-346) Ferritin 10 NG/ML (8-388) Troponin I 0.000 ng/mL (0.000-0.056) Pro-B-Type Natriuretic Peptide 1479 pg/mL (0-125) H Triglycerides Level 44 MG/DL (30-150) Cholesterol Level 185 MG/DL (< 200) LDL Cholesterol 80 mg/dL (<100) HDL Cholesterol 94 MG/DL (40-60) H Cholesterol/HDL Ratio 2.0 (3.3-4.4) L Carcinoembryonic Antigen Pending Vitamin B12 Level 548 PG/ML (193-986) RBC Folate Hemolysate Pending Red Blood Cell Folate Pending Thyroid Stimulating Hormone (TSH) 0.311 uiU/mL (0.358-3.740) Microbiology Date/Time Source Procedure Growth Status 08/16/19 16:00 Sputum Expectorated Gram Stain - Final Resulted 08/16/19 16:00 Sputum Expectorated Sputum Culture Pending Resulted 08/16/19 09:25 Nasal Nares - Final Complete 08/16/19 09:25 Nasal Nares - Final Complete Intake and Output 08/16/19 08/17/19 19:00 07:00 Intake Total 480 ml Balance 480 ml Intake Oral 480 ml # Voids 5 1 Objective PHYSICAL EXAMINATION: GENERAL: The patient is a well-developed and well-nourished thin-appearing female, in no apparent distress. HEENT: Eyes, pupils are equal and responsive to light and accommodation. Extraocular movements are intact. NECK: Supple without lymphadenopathy. CHEST: Lungs with decreased breath sounds at bilateral bases. Otherwise, without wheezes or rales. CARDIOVASCULAR: Regular rhythm and rate. S1, S2 normal without murmurs, rubs, or gallops. ABDOMEN: Soft, nontender, and nondistended. Positive bowel sounds. No evidence of hepatosplenomegaly. Currently, no rebound or guarding noted. EXTREMITIES: Negative for clubbing, cyanosis, or edema. RECTAL/GENITAL: Not performed. NEUROLOGIC: Cranial nerves II through XII are grossly intact without focal deficits. Motor strength is 5/5 bilaterally. Deep tendon reflexes are 2+ plantar. Assessment/Plan Assessment/Plan ASSESSMENT: This is an 83-year-old female. 1. Shortness of breath. 2. Cough. 3. Congestive heart failure. 4. Acute exacerbation of asthma with bronchitis. 5. Type 2 diabetes. 6. Hypertension. 7. Hypercholesteremia. 8. Asthma. 9. Arthritis. 10. Osteoporosis. TREATMENT: 1. Shortness of breath/exacerbation of asthma. A Pulmonary consultation has been obtained with Dr. Dony Eli. The patient has been started on intravenous Solu-Medrol. The patient has also been started on ceftriaxone. We will follow recommendations of Pulmonary. 2. Congestive heart failure. A Cardiology consultation has been obtained with Dr. Mikey Plascencia. An echocardiogram is pending. We will follow recommendations of Cardiology. 3. Diabetes type 2. Continue metformin as above. NovoLog sliding scale has been instituted, as hyperglycemia is common with intravenous Solu-Medrol use. 4. Hypertension. Continue amlodipine and losartan as above. 5. Hypercholesterolemia. Continue pravastatin as above. 6. Arthritis. 7. Osteoporosis. Isaías Atwood MD Aug 17, 2019 13:18
[2019-08-17] MEDS: Azithromycin 500 MG in D5W 275 ML IV SCH (14:44)
[2019-08-17] MEDS: MEMANTINE 7 MG ORAL SCH (14:44)
[2019-08-17 16:00] VITALS: BP 135/64
--- NOTE | 2019-08-17 19:00 | NUR ---
NURSE NOTES: Received report from DIMITRIOS Gilmore. Patient is awake, lying in semi nixon's; resting comfortably. A/Ox4. Primarily [place]an speaking. Denies pain at this time. No signs of acute distress noted. Checked IV site and flushed. No erythema, bleeding or infiltration noted. Bed at lowest position, brakes on, siderailsx3. Call light within reach. Will continue to monitor.
--- NOTE | 2019-08-17 19:00 | NUR ---
HAND-OFF: Report given to Evelyn PLUNKETT.
[2019-08-17 20:00] VITALS: BP 136/64
[2019-08-18] VITALS: BP 138/71
--- NOTE | 2019-08-18 01:07 | NUR ---
NURSE NOTES: Resting throughout the night. No significant change of condition noted. Will continue to monitor.
[2019-08-18 04:00] VITALS: BP 145/84
--- NOTE | 2019-08-18 07:00 | NUR ---
HAND-OFF: Report given to DIMITRIOS Liao. Plan of care endorsed.
[2019-08-18 07:25] LABS: BASOPHILS % (AUTO) 0.1 % (0.0-2.0); HEMATOCRIT 32.2 % (37.0-47.0); HEMOGLOBIN 10.6 G/DL (12.0-16.0); LYMPHOCYTES % (AUTO) 15.1 % (20.0-45.0); MEAN CORPUSCULAR VOLUME 82 FL (80-99); MONOCYTES % (AUTO) 4.3 % (1.0-10.0); NEUTROPHILS % (AUTO) 80.5 % (45.0-75.0); PLATELET COUNT 353 K/UL (150-450); RED BLOOD COUNT 3.93 M/UL (4.20-5.40); RED CELL DISTRIBUTION WIDTH 12.2 % (11.6-14.8); WHITE BLOOD COUNT 8.3 K/UL (4.8-10.8)
[2019-08-18 07:44] LABS: ANION GAP 7 mmol/L (5-15); BLOOD UREA NITROGEN 37 mg/dL (7-18); CALCIUM 9.1 MG/DL (8.5-10.1); CARBON DIOXIDE 29 MMOL/L (21-32); CHLORIDE 104 MMOL/L (98-107); CREATININE 0.9 MG/DL (0.55-1.30); POTASSIUM 4.1 MMOL/L (3.5-5.1); SODIUM 140 MMOL/L (136-145)
[2019-08-18 08:00] VITALS: BP 148/73
--- NOTE | 2019-08-18 08:00 | NUR ---
NURSE NOTES: Patient stable AOx4 with no s/sx of distress. No complaints at this time. RR even and unlabored on RA. Side rails upx2, call light within reach, bed low and locked. Will continue to monitor.
[2019-08-18] MEDS: Solu-MEDROL 40mg Inj IVP SCH (08:42)
[2019-08-18] MEDS: Aspirin EC 81mg tab ORAL SCH (08:42)
[2019-08-18] MEDS: Heparin 5000 units/ml inj SUBQ SCH ×2 (08:42→21:22)
[2019-08-18] MEDS: Theophylline 80mg/15ml ORAL SCH ×2 (08:42→21:21)
[2019-08-18] MEDS: metFORMIN 500mg tab ORAL SCH ×2 (08:43→17:25)
[2019-08-18] MEDS: Montelukast 10mg tablet ORAL SCH (08:43)
[2019-08-18] MEDS: Losartan 25mg tab ORAL SCH (08:43)
[2019-08-18] MEDS: Docusate 100mg cap ORAL SCH ×2 (08:58→21:21)
[2019-08-18] MEDS: MEMANTINE 7 MG ORAL SCH (09:00)
[2019-08-18] MEDS ORDERED: MEMANTINE 7 MG ORAL SCH (09:00)
--- NOTE | 2019-08-18 10:14 | Cardiac Electrophysiology PN ---
Assessment/Plan Assessment/Plan 1. Shortness of breath, likely due to combination of congestive heart failure and possible pneumonia as well as lactic acid is elevated. better on Lasix 20 mg IV b.i.d. We will watch the renal function. EF 60% and moderate pulmonary HTN. 2. Hypertension. On losartan 25 mg daily and Norvasc 5 mg daily and Lasix. 3. Chronic obstructive pulmonary disease. On theophylline and azithromycin and Solu-Medrol and ceftriaxone. 4. Hyperlipidemia. On Pravachol. Subjective Subjective Feeling better. No CP or SOB Objective Last 24 Hour Vital Signs Date Time Temp Pulse Resp B/P (MAP) Pulse Ox O2 Delivery O2 Flow Rate FiO2 08/18/19 08:43 148/73 08/18/19 08:43 81 148/73 08/18/19 08:00 96.7 81 18 148/73 (98) 94 08/18/19 08:00 80 08/18/19 04:00 70 08/18/19 04:00 97.9 80 16 145/84 (104) 93 08/18/19 00:00 78 08/18/19 00:00 97.9 78 16 138/71 (93) 95 08/17/19 21:00 Room Air Room Air 08/17/19 20:00 98.8 83 18 136/64 (88) 96 08/17/19 20:00 78 08/17/19 16:00 83 08/17/19 16:00 97.7 70 19 135/64 (87) 100 08/17/19 12:00 97.8 83 18 137/62 (87) 97 08/17/19 12:00 87 Intake and Output 08/17/19 08/18/19 19:00 07:00 Intake Total 140 ml Output Total 1200 ml Balance -1060 ml Intake Oral 140 ml Output Urine Total 1200 ml # Voids 3 1 Laboratory Tests Test 08/18/19 06:00 White Blood Count 8.3 K/UL (4.8-10.8) # Red Blood Count 3.93 M/UL (4.20-5.40) L Hemoglobin 10.6 G/DL (12.0-16.0) L Hematocrit 32.2 % (37.0-47.0) L Mean Corpuscular Volume 82 FL (80-99) Mean Corpuscular Hemoglobin 27.1 PG (27.0-31.0) Mean Corpuscular Hemoglobin Concent 33.0 G/DL (32.0-36.0) Red Cell Distribution Width 12.2 % (11.6-14.8) Platelet Count 353 K/UL (150-450) Mean Platelet Volume 6.2 FL (6.5-10.1) L Neutrophils (%) (Auto) 80.5 % (45.0-75.0) H Lymphocytes (%) (Auto) 15.1 % (20.0-45.0) L Monocytes (%) (Auto) 4.3 % (1.0-10.0) Eosinophils (%) (Auto) 0.0 % (0.0-3.0) Basophils (%) (Auto) 0.1 % (0.0-2.0) Sodium Level 140 MMOL/L (136-145) Potassium Level 4.1 MMOL/L (3.5-5.1) Chloride Level 104 MMOL/L (98-107) Carbon Dioxide Level 29 MMOL/L (21-32) Anion Gap 7 mmol/L (5-15) Blood Urea Nitrogen 37 mg/dL (7-18) H Creatinine 0.9 MG/DL (0.55-1.30) Estimat Glomerular Filtration Rate mL/min (>60) Glucose Level 145 MG/DL (74-106) H Calcium Level 9.1 MG/DL (8.5-10.1) Free Thyroxine 0.86 NG/DL (0.76-1.46) Free Triiodothyronine 1.8 pg/mL (2.3-4.2) L Microbiology Date/Time Source Procedure Growth Status 08/16/19 09:25 Blood Blood Culture - Preliminary NO GROWTH AFTER 24 HOURS Resulted 08/16/19 09:25 Blood Blood Culture - Preliminary NO GROWTH AFTER 24 HOURS Resulted 08/16/19 16:00 Sputum Expectorated Gram Stain - Final Complete 08/16/19 16:00 Sputum Expectorated Sputum Culture - Final NORMAL UPPER RESPIRATORY ANGY PRESENT Complete 08/16/19 09:25 Nasal Nares - Final Complete 08/16/19 09:25 Nasal Nares - Final Complete Objective HEAD AND NECK: Mild JVD. LUNGS: Coarse rhonchi and scattered wheezes. CARDIOVASCULAR: Regular S1 and S2 with no gallop or murmur. ABDOMEN: Soft. EXTREMITIES: No pitting edema. Mikey Plascencia MD Aug 18, 2019 10:14
--- NOTE | 2019-08-18 11:35 | Pulmonology Progress Note ---
Assessment/Plan Problems: (1) Asthma exacerbation in COPD (2) HTN (hypertension) (3) Diabetes mellitus Assessment/Plan improving slowly check sputum taper steroids iv abx sliding scale diabetic diet Subjective ROS Limited/Unobtainable: No Interval Events: less short of breath Constitutional: Reports: no symptoms HEENT: Repors: no symptoms Allergies: Coded Allergies: No Known Allergies (Unverified , 04/03/17) Objective Last 24 Hour Vital Signs Date Time Temp Pulse Resp B/P (MAP) Pulse Ox O2 Delivery O2 Flow Rate FiO2 08/18/19 09:00 Room Air Room Air 08/18/19 08:43 148/73 08/18/19 08:43 81 148/73 08/18/19 08:00 96.7 81 18 148/73 (98) 94 08/18/19 08:00 80 08/18/19 04:00 70 08/18/19 04:00 97.9 80 16 145/84 (104) 93 08/18/19 00:00 78 08/18/19 00:00 97.9 78 16 138/71 (93) 95 08/17/19 21:00 Room Air Room Air 08/17/19 20:00 98.8 83 18 136/64 (88) 96 08/17/19 20:00 78 08/17/19 16:00 83 08/17/19 16:00 97.7 70 19 135/64 (87) 100 08/17/19 12:00 97.8 83 18 137/62 (87) 97 08/17/19 12:00 87 Intake and Output 08/17/19 08/18/19 19:00 07:00 Intake Total 140 ml Output Total 1200 ml Balance -1060 ml Intake Oral 140 ml Output Urine Total 1200 ml # Voids 3 1 General Appearance: WD/WN HEENT: normocephalic, atraumatic Respiratory/Chest: chest wall non-tender, lungs clear Breasts: no masses Cardiovascular: normal rate Abdomen: normal bowel sounds, soft, non tender Neurologic/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: 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 grossly normal, no motor/sensory deficits Microbiology Date/Time Source Procedure Growth Status 08/16/19 09:25 Blood Blood Culture - Preliminary NO GROWTH AFTER 24 HOURS Resulted 08/16/19 09:25 Blood Blood Culture - Preliminary NO GROWTH AFTER 24 HOURS Resulted 08/16/19 16:00 Sputum Expectorated Gram Stain - Final Complete 08/16/19 16:00 Sputum Expectorated Sputum Culture - Final NORMAL UPPER RESPIRATORY ANGY PRESENT Complete 08/16/19 09:25 Nasal Nares - Final Complete 08/16/19 09:25 Nasal Nares - Final Complete Laboratory Tests 08/18/19 06:00: White Blood Count 8.3#, Red Blood Count 3.93L, Hemoglobin 10.6L, Hematocrit 32.2L, Mean Corpuscular Volume 82, Mean Corpuscular Hemoglobin 27.1, Mean Corpuscular Hemoglobin Concent 33.0, Red Cell Distribution Width 12.2, Platelet Count 353, Mean Platelet Volume 6.2L, Neutrophils (%) (Auto) 80.5H, Lymphocytes (%) (Auto) 15.1L, Monocytes (%) (Auto) 4.3, Eosinophils (%) (Auto) 0.0, Basophils (%) (Auto) 0.1, Sodium Level 140, Potassium Level 4.1, Chloride Level 104, Carbon Dioxide Level 29, Anion Gap 7, Blood Urea Nitrogen 37H, Creatinine 0.9, Estimat Glomerular Filtration Rate , Glucose Level 145H, Calcium Level 9.1 , Free Thyroxine 0.86, Free Triiodothyronine 1.8L Current Medications Medications (Trade) Dose Ordered Sig/Lora Route PRN Reason Start Time Stop Time Status Last Admin Dose Admin Acetaminophen (Tylenol) 650 mg Q4H PRN ORAL Mild Pain (Pain Scale 1-3) 08/16/19 11:30 09/15/19 11:29 Albuterol/ Ipratropium (Albuterol/ Ipratropium) 3 ml EVERY 4 HOURS PRN HHN Shortness of Breath 08/16/19 11:30 08/21/19 11:29 Amlodipine Besylate (Norvasc) 5 mg DAILY ORAL 08/17/19 09:00 09/16/19 08:59 08/18/19 08:43 Aspirin (Ecotrin) 81 mg DAILY ORAL 08/17/19 09:00 09/16/19 08:59 08/18/19 08:42 Azithromycin 500 mg/Dextrose 275 ml @ 275 mls/hr Q24HRS IV 08/16/19 14:00 08/22/19 14:59 08/17/19 14:44 Ceftriaxone Sodium 1 gm/ Dextrose 55 ml @ 110 mls/hr Q24H IVPB 08/16/19 13:00 08/23/19 12:59 08/17/19 13:18 Dextrose (Dextrose 50%) 25 ml Q30M PRN IV Hypoglycemia 08/16/19 11:30 09/15/19 11:29 Dextrose (Dextrose 50%) 50 ml Q30M PRN IV Hypoglycemia 08/16/19 11:30 09/15/19 11:29 Docusate Sodium (Colace) 100 mg EVERY 12 HOURS ORAL 08/16/19 21:00 09/15/19 20:59 08/18/19 08:58 Famotidine (Pepcid) 20 mg DAILY ORAL 08/17/19 09:00 09/16/19 08:59 08/18/19 08:42 Furosemide (Lasix) 20 mg EVERY 12 HOURS IV 08/16/19 21:00 09/15/19 20:59 08/18/19 08:43 Guaifenesin/ Dextromethorphan (Robitussin DM Syrup) 10 ml Q4H PRN ORAL For Cough 08/16/19 11:30 09/15/19 11:29 Heparin Sodium (Porcine) (Heparin 5000 units/ml) 5,000 units EVERY 12 HOURS SUBQ 08/16/19 21:00 09/15/19 20:59 08/18/19 08:42 Losartan Potassium (Cozaar) 25 mg DAILY ORAL 08/17/19 09:00 09/16/19 08:59 08/18/19 08:43 Magnesium Hydroxide (Mom) 30 ml HSPRN PRN ORAL Constipation 08/16/19 11:30 09/15/19 11:29 Metformin HCl (Glucophage) 500 mg TWICE A DAY ORAL 08/16/19 18:00 09/15/19 17:59 08/18/19 08:43 Methylprednisolone Sodium Succinate (Solu-MEDROL) 40 mg Q12HR IVP 08/17/19 21:00 09/15/19 13:59 08/18/19 08:42 Montelukast Sodium (Singulair) 10 mg DAILY ORAL 08/17/19 09:00 09/16/19 08:59 08/18/19 08:43 Patient Own Medication (Patient's Own Med) 1 ea DAILY ORAL 08/17/19 14:30 09/16/19 14:29 08/18/19 09:00 Pravastatin Sodium (Pravachol) 20 mg BEDTIME ORAL 08/16/19 21:00 09/15/19 20:59 08/17/19 20:58 Temazepam (Restoril) 15 mg DAILYPRN PRN ORAL Insomnia 08/16/19 11:30 08/23/19 11:29 Theophylline (Theophylline) 100 mg EVERY 12 HOURS ORAL 08/16/19 21:00 09/15/19 20:59 08/18/19 08:42 Dony Eli MD Aug 18, 2019 11:35
[2019-08-18 12:00] VITALS: BP 129/58
[2019-08-18] MEDS: cefTRIAXone 1 GM in D5W 55 ML IVPB SCH (12:35)
--- NOTE | 2019-08-18 12:39 | Consultation ---
History of Present Illness General Date patient seen: Aug 18, 2019 Chief Complaint: Asthma Referring physician: dr Camargo Reason for Consultation: asthma exacerbation, bronchitis Present Illness HPI 83 y/o F with hx of HTN, Dm2, HLD, asthma, s/p open cholecystectomy 03/2019, s/p RONNIE and BSO CHF, s/p b/l cataract surgery, arthritis, osteoporosis presented to ED on 08/16 with worsening SOB, nasal congestion, cough, chest tightness and wheezing. In ED was tachypneic, and hypoxic. Denied fever, nausea, headache, vomiting, recent travel upon admission Allergies: Coded Allergies: No Known Allergies (Unverified , 04/03/17) Medication History Scheduled Albuterol Sulfate* (Proair Hfa*), 1 PUFF INH Q6H, (Reported) Amlodipine Besylate (Norvasc), 5 MG ORAL DAILY, (Reported) Aspirin (Aspirin EC), 81 MG ORAL DAILY, (Reported) Losartan Potassium (Losartan Potassium), 25 MG PO DAILY, (Reported) Memantine Hcl* (Namenda*), 7 MG ORAL DAILY, (Reported) Metformin Hcl* (Metformin Hcl*), Unknown Dose ORAL TWICE A DAY, (Reported) Montelukast Sodium* (Montelukast Sodium*), 10 MG ORAL DAILY, (Reported) Omeprazole (Omeprazole), Unknown Dose ORAL DAILY, (Reported) Potassium Gluconate (Potassium), 25 MG PO DAILY, (Reported) Pravastatin Sod* (Pravastatin Sod*), 20 MG ORAL BEDTIME, (Reported) Simvastatin (Zocor), 20 MG ORAL BEDTIME, (Reported) Scheduled PRN Albuterol Sulfate* (Albuterol Sulfate Hhn*), 3 ML INH Q4H PRN for Shortness of Breath, (Reported) Discontinued Medications Cephalexin* (Keflex*), 500 MG ORAL EVERY 6 HOURS Discontinued Reason: Pt stopped taking med Famotidine* (Pepcid 20mg tablet*), 20 MG ORAL DAILY, (Reported) Discontinued Reason: Pt stopped taking med Pantoprazole* (Protonix*), 40 MG ORAL DAILY, (Reported) Discontinued Reason: Pt stopped taking med Patient History Healthcare decision maker Resuscitation status Full Code Advanced Directive on File Patient History Narrative Pmhx: as above Shx:She lives at home. Does not smoke or drink alcohol. Fhx: non contributory Review of Systems All Other Systems: negative except mentioned in HPI Physical Exam Physical Exam Narrative GENERAL: The patient is a well-developed and well-nourished thin-appearing female, in no apparent distress. HEENT: Eyes, pupils are equal and responsive to light and accommodation. Extraocular movements are intact. NECK: Supple without lymphadenopathy. CHEST: Lungs with decreased breath sounds at bilateral bases. Otherwise, without wheezes or rales. CARDIOVASCULAR: Regular rhythm and rate. S1, S2 normal without murmurs, rubs, or gallops. ABDOMEN: Soft, nontender, and nondistended. Positive bowel sounds. No evidence of hepatosplenomegaly. Currently, no rebound or guarding noted. EXTREMITIES: Negative for clubbing, cyanosis, or edema. Last 24 Hour Vital Signs Date Time Temp Pulse Resp B/P (MAP) Pulse Ox O2 Delivery O2 Flow Rate FiO2 08/18/19 09:00 Room Air Room Air 08/18/19 08:43 148/73 08/18/19 08:43 81 148/73 08/18/19 08:00 96.7 81 18 148/73 (98) 94 08/18/19 08:00 80 08/18/19 04:00 70 08/18/19 04:00 97.9 80 16 145/84 (104) 93 08/18/19 00:00 78 08/18/19 00:00 97.9 78 16 138/71 (93) 95 08/17/19 21:00 Room Air Room Air 08/17/19 20:00 98.8 83 18 136/64 (88) 96 08/17/19 20:00 78 08/17/19 16:00 83 08/17/19 16:00 97.7 70 19 135/64 (87) 100 Intake and Output 08/17/19 08/18/19 19:00 07:00 Intake Total 140 ml Output Total 1200 ml Balance -1060 ml Intake Oral 140 ml Output Urine Total 1200 ml # Voids 3 1 Laboratory Tests Test 08/18/19 06:00 White Blood Count 8.3 K/UL (4.8-10.8) # Red Blood Count 3.93 M/UL (4.20-5.40) L Hemoglobin 10.6 G/DL (12.0-16.0) L Hematocrit 32.2 % (37.0-47.0) L Mean Corpuscular Volume 82 FL (80-99) Mean Corpuscular Hemoglobin 27.1 PG (27.0-31.0) Mean Corpuscular Hemoglobin Concent 33.0 G/DL (32.0-36.0) Red Cell Distribution Width 12.2 % (11.6-14.8) Platelet Count 353 K/UL (150-450) Mean Platelet Volume 6.2 FL (6.5-10.1) L Neutrophils (%) (Auto) 80.5 % (45.0-75.0) H Lymphocytes (%) (Auto) 15.1 % (20.0-45.0) L Monocytes (%) (Auto) 4.3 % (1.0-10.0) Eosinophils (%) (Auto) 0.0 % (0.0-3.0) Basophils (%) (Auto) 0.1 % (0.0-2.0) Sodium Level 140 MMOL/L (136-145) Potassium Level 4.1 MMOL/L (3.5-5.1) Chloride Level 104 MMOL/L (98-107) Carbon Dioxide Level 29 MMOL/L (21-32) Anion Gap 7 mmol/L (5-15) Blood Urea Nitrogen 37 mg/dL (7-18) H Creatinine 0.9 MG/DL (0.55-1.30) Estimat Glomerular Filtration Rate mL/min (>60) Glucose Level 145 MG/DL (74-106) H Calcium Level 9.1 MG/DL (8.5-10.1) Free Thyroxine 0.86 NG/DL (0.76-1.46) Free Triiodothyronine 1.8 pg/mL (2.3-4.2) L Height (Feet): 4 Height (Inches): 9.00 Weight (Pounds): 78 Medications Current Medications Medications (Trade) Dose Ordered Sig/Lora Route PRN Reason Start Time Stop Time Status Last Admin Dose Admin Acetaminophen (Tylenol) 650 mg Q4H PRN ORAL Mild Pain (Pain Scale 1-3) 08/16/19 11:30 09/15/19 11:29 Albuterol/ Ipratropium (Albuterol/ Ipratropium) 3 ml EVERY 4 HOURS PRN HHN Shortness of Breath 08/16/19 11:30 2/13/20 11:29 Amlodipine Besylate (Norvasc) 5 mg DAILY ORAL 08/17/19 09:00 09/16/19 08:59 08/18/19 08:43 Aspirin (Ecotrin) 81 mg DAILY ORAL 08/17/19 09:00 09/16/19 08:59 08/18/19 08:42 Azithromycin 500 mg/Dextrose 275 ml @ 275 mls/hr Q24HRS IV 08/16/19 14:00 08/22/19 14:59 08/17/19 14:44 Ceftriaxone Sodium 1 gm/ Dextrose 55 ml @ 110 mls/hr Q24H IVPB 08/16/19 13:00 08/23/19 12:59 08/17/19 13:18 Dextrose (Dextrose 50%) 25 ml Q30M PRN IV Hypoglycemia 08/16/19 11:30 09/15/19 11:29 Dextrose (Dextrose 50%) 50 ml Q30M PRN IV Hypoglycemia 08/16/19 11:30 09/15/19 11:29 Docusate Sodium (Colace) 100 mg EVERY 12 HOURS ORAL 08/16/19 21:00 09/15/19 20:59 08/18/19 08:58 Famotidine (Pepcid) 20 mg DAILY ORAL 08/17/19 09:00 09/16/19 08:59 08/18/19 08:42 Furosemide (Lasix) 20 mg EVERY 12 HOURS IV 08/16/19 21:00 09/15/19 20:59 08/18/19 08:43 Guaifenesin/ Dextromethorphan (Robitussin DM Syrup) 10 ml Q4H PRN ORAL For Cough 08/16/19 11:30 09/15/19 11:29 Heparin Sodium (Porcine) (Heparin 5000 units/ml) 5,000 units EVERY 12 HOURS SUBQ 08/16/19 21:00 09/15/19 20:59 08/18/19 08:42 Losartan Potassium (Cozaar) 25 mg DAILY ORAL 08/17/19 09:00 09/16/19 08:59 08/18/19 08:43 Magnesium Hydroxide (Mom) 30 ml HSPRN PRN ORAL Constipation 08/16/19 11:30 09/15/19 11:29 Metformin HCl (Glucophage) 500 mg TWICE A DAY ORAL 08/16/19 18:00 09/15/19 17:59 08/18/19 08:43 Methylprednisolone Sodium Succinate (Solu-MEDROL) 40 mg DAILY IVP 08/19/19 09:00 09/15/19 13:59 Montelukast Sodium (Singulair) 10 mg DAILY ORAL 08/17/19 09:00 09/16/19 08:59 08/18/19 08:43 Patient Own Medication (Patient's Own Med) 1 ea DAILY ORAL 08/17/19 14:30 09/16/19 14:29 08/18/19 09:00 Pravastatin Sodium (Pravachol) 20 mg BEDTIME ORAL 08/16/19 21:00 09/15/19 20:59 08/17/19 20:58 Temazepam (Restoril) 15 mg DAILYPRN PRN ORAL Insomnia 08/16/19 11:30 08/23/19 11:29 Theophylline (Theophylline) 100 mg EVERY 12 HOURS ORAL 08/16/19 21:00 09/15/19 20:59 08/18/19 08:42 Assessment/Plan Assessment/Plan: Abx: Ceftriaxone 08/16- Azithromycin 08/16- Assessment: Afebrile No leukocytosis -08/16 U/a neg Bcx NTD Asthma/COPD exacerbation CHF exacerbation -08/17 CXR:Cardiomegaly. Mild central vascular congestion. No focal infiltrate or consolidation. -influenza sc neg -08/16 CXR: Hyperinflated lungs may be COPD. No acute process. sp cx normal resp jolly HTN Dm2 HLD asthma s/p open cholecystectomy 03/2019 s/p RONNIE and BSO CHF s/p b/l cataract surgery arthritis osteoporosis Plan: -Continue Azithromycin #3/5 for COPD exacerbation -D/c Ceftriaxone #3 as no PNA present -f/u cx -Monitor CBC/CMP, temperatures -aspiration precautions Thank you for this consultation. Will continue to follow along with you. Discussed with Magaly Marti M.D. Aug 18, 2019 12:39
--- NOTE | 2019-08-18 14:14 | NUR ---
CASE MANAGEMENT:REVIEW 08/18/19 SI: ASTHMA EXACERBATION. COPD. CHF 96.7 66 18 129/58 98% ON RA H/H-10.6/32.2 BUN+37 IS: IV SOLUMEDROL Q12---> QD IV LASIX Q12 IV AZITHROMYCIN Q24 NORVASC PO QD ASA PO QD COZAAR PO QD SINGULAR PO QD BULMARO-DUR PO Q12 : TELEMETRY STATUS DCP: FROM HOME
[2019-08-18] MEDS: Azithromycin 500 MG in D5W 275 ML IV SCH (14:19)
--- NOTE | 2019-08-18 15:01 | NUR ---
RD ASSESSMENT & RECOMMENDATIONS SEE CARE ACTIVITY FOR COMPLETE ASSESSMENT DAILY ESTIMATED NEEDS: Needs based on DM, suspected wt loss/ 36kg 30-35 kcals/kg 1866-1138 total kcals 1-1.5 g protein/kg 36-54 g total protein 25-30 mL/kg 900-1080 total fluid mLs NUTRITION DIAGNOSIS: Increased kcal/prot needs R/T underweight status, suspected recent wt loss as evidenced by underweight BMI per guidelines, pt @ 87% IBW, possible 12.6lbs/14% wt loss in 5 months. CURRENT DIET:CCHO MED, soft easy chew PO DIET RECOMMENDATIONS: CCHO LOW/ texture as tolerated ADDITIONAL RECOMMENDATIONS: * Calibrated bedscale wt or standing wt for accurate CBW * Monitor for continued good PO intake * Add Glucerna x 1 to ensure nutritional needs are met (220kcal, 10g prot per doug) * Consider NISS: h/o DM, pt on steroidal med .
[2019-08-18 16:00] VITALS: BP 128/56
--- NOTE | 2019-08-18 18:49 | Internal Med Progress Note ---
Subjective Date of Service: Aug 18, 2019 Physician Name AngelicIsaías Attending Physician Logan Camargo MD Current Medications Medications (Trade) Dose Ordered Sig/Lora Route PRN Reason Start Time Stop Time Status Last Admin Dose Admin Acetaminophen (Tylenol) 650 mg Q4H PRN ORAL Mild Pain (Pain Scale 1-3) 08/16/19 11:30 09/15/19 11:29 Albuterol/ Ipratropium (Albuterol/ Ipratropium) 3 ml EVERY 4 HOURS PRN HHN Shortness of Breath 08/16/19 11:30 08/21/19 11:29 Albuterol/ Ipratropium (Albuterol/ Ipratropium) 3 ml Q4HRT HHN 08/18/19 19:00 08/23/19 18:59 Amlodipine Besylate (Norvasc) 5 mg DAILY ORAL 08/17/19 09:00 09/16/19 08:59 08/18/19 08:43 Aspirin (Ecotrin) 81 mg DAILY ORAL 08/17/19 09:00 09/16/19 08:59 08/18/19 08:42 Azithromycin 500 mg/Dextrose 275 ml @ 275 mls/hr Q24HRS IV 08/16/19 14:00 08/22/19 14:59 08/18/19 14:19 Dextrose (Dextrose 50%) 25 ml Q30M PRN IV Hypoglycemia 08/16/19 11:30 09/15/19 11:29 Dextrose (Dextrose 50%) 50 ml Q30M PRN IV Hypoglycemia 08/16/19 11:30 09/15/19 11:29 Docusate Sodium (Colace) 100 mg EVERY 12 HOURS ORAL 08/16/19 21:00 09/15/19 20:59 08/18/19 08:58 Famotidine (Pepcid) 20 mg DAILY ORAL 08/17/19 09:00 09/16/19 08:59 08/18/19 08:42 Furosemide (Lasix) 20 mg EVERY 12 HOURS IV 08/16/19 21:00 09/15/19 20:59 08/18/19 08:43 Guaifenesin/ Dextromethorphan (Robitussin DM Syrup) 10 ml Q4H PRN ORAL For Cough 08/16/19 11:30 09/15/19 11:29 Heparin Sodium (Porcine) (Heparin 5000 units/ml) 5,000 units EVERY 12 HOURS SUBQ 08/16/19 21:00 09/15/19 20:59 08/18/19 08:42 Losartan Potassium (Cozaar) 25 mg DAILY ORAL 08/17/19 09:00 09/16/19 08:59 08/18/19 08:43 Magnesium Hydroxide (Mom) 30 ml HSPRN PRN ORAL Constipation 08/16/19 11:30 09/15/19 11:29 Metformin HCl (Glucophage) 500 mg TWICE A DAY ORAL 08/16/19 18:00 09/15/19 17:59 08/18/19 17:25 Methylprednisolone Sodium Succinate (Solu-MEDROL) 40 mg DAILY IVP 08/19/19 09:00 09/15/19 13:59 Montelukast Sodium (Singulair) 10 mg DAILY ORAL 08/17/19 09:00 09/16/19 08:59 08/18/19 08:43 Patient Own Medication (Patient's Own Med) 1 ea DAILY ORAL 08/17/19 14:30 09/16/19 14:29 08/18/19 09:00 Pravastatin Sodium (Pravachol) 20 mg BEDTIME ORAL 08/16/19 21:00 09/15/19 20:59 08/17/19 20:58 Temazepam (Restoril) 15 mg DAILYPRN PRN ORAL Insomnia 08/16/19 11:30 08/23/19 11:29 Theophylline (Theophylline) 100 mg EVERY 12 HOURS ORAL 08/16/19 21:00 09/15/19 20:59 08/18/19 08:42 Allergies: Coded Allergies: No Known Allergies (Unverified , 04/03/17) ROS Limited/Unobtainable: No Constitutional: Reports: no symptoms HEENT: Reports: no symptoms Cardiovascular: Reports: no symptoms Respiratory: Reports: shortness of breath Gastrointestinal/Abdominal: Reports: no symptoms Genitourinary: Reports: no symptoms Neurologic/Psychiatric: Reports: no symptoms Subjective 83 YO F admitted with dyspnea. Now acute asthma exacerbation and CHF. Cover for Int Med-Dr Camargo Objective Last Vital Signs Date Time Temp Pulse Resp B/P (MAP) Pulse Ox O2 Delivery O2 Flow Rate FiO2 08/18/19 16:00 98.2 88 19 128/56 (80) 97 08/18/19 09:00 Room Air Room Air 08/17/19 09:27 21 Laboratory Tests Test 08/18/19 06:00 White Blood Count 8.3 K/UL (4.8-10.8) # Red Blood Count 3.93 M/UL (4.20-5.40) L Hemoglobin 10.6 G/DL (12.0-16.0) L Hematocrit 32.2 % (37.0-47.0) L Mean Corpuscular Volume 82 FL (80-99) Mean Corpuscular Hemoglobin 27.1 PG (27.0-31.0) Mean Corpuscular Hemoglobin Concent 33.0 G/DL (32.0-36.0) Red Cell Distribution Width 12.2 % (11.6-14.8) Platelet Count 353 K/UL (150-450) Mean Platelet Volume 6.2 FL (6.5-10.1) L Neutrophils (%) (Auto) 80.5 % (45.0-75.0) H Lymphocytes (%) (Auto) 15.1 % (20.0-45.0) L Monocytes (%) (Auto) 4.3 % (1.0-10.0) Eosinophils (%) (Auto) 0.0 % (0.0-3.0) Basophils (%) (Auto) 0.1 % (0.0-2.0) Sodium Level 140 MMOL/L (136-145) Potassium Level 4.1 MMOL/L (3.5-5.1) Chloride Level 104 MMOL/L (98-107) Carbon Dioxide Level 29 MMOL/L (21-32) Anion Gap 7 mmol/L (5-15) Blood Urea Nitrogen 37 mg/dL (7-18) H Creatinine 0.9 MG/DL (0.55-1.30) Estimat Glomerular Filtration Rate mL/min (>60) Glucose Level 145 MG/DL (74-106) H Calcium Level 9.1 MG/DL (8.5-10.1) Free Thyroxine 0.86 NG/DL (0.76-1.46) Free Triiodothyronine 1.8 pg/mL (2.3-4.2) L Microbiology Date/Time Source Procedure Growth Status 08/16/19 09:25 Blood Blood Culture - Preliminary NO GROWTH AFTER 24 HOURS Resulted 08/16/19 09:25 Blood Blood Culture - Preliminary NO GROWTH AFTER 24 HOURS Resulted 08/16/19 16:00 Sputum Expectorated Gram Stain - Final Complete 08/16/19 16:00 Sputum Expectorated Sputum Culture - Final NORMAL UPPER RESPIRATORY ANGY PRESENT Complete 08/16/19 09:25 Nasal Nares - Final Complete 08/16/19 09:25 Nasal Nares - Final Complete Intake and Output 08/17/19 08/18/19 19:00 07:00 Intake Total 140 ml Output Total 1200 ml Balance -1060 ml Intake Oral 140 ml Output Urine Total 1200 ml # Voids 3 1 Objective PHYSICAL EXAMINATION: GENERAL: The patient is a well-developed and well-nourished thin-appearing female, in no apparent distress. HEENT: Eyes, pupils are equal and responsive to light and accommodation. Extraocular movements are intact. NECK: Supple without lymphadenopathy. CHEST: Lungs with decreased breath sounds at bilateral bases. Otherwise, without wheezes or rales. CARDIOVASCULAR: Regular rhythm and rate. S1, S2 normal without murmurs, rubs, or gallops. ABDOMEN: Soft, nontender, and nondistended. Positive bowel sounds. No evidence of hepatosplenomegaly. Currently, no rebound or guarding noted. EXTREMITIES: Negative for clubbing, cyanosis, or edema. RECTAL/GENITAL: Not performed. NEUROLOGIC: Cranial nerves II through XII are grossly intact without focal deficits. Motor strength is 5/5 bilaterally. Deep tendon reflexes are 2+ plantar. Assessment/Plan Assessment/Plan ASSESSMENT: This is an 83-year-old female. 1. Shortness of breath. 2. Cough. 3. Congestive heart failure. 4. Acute exacerbation of asthma with bronchitis. 5. Type 2 diabetes. 6. Hypertension. 7. Hypercholesteremia. 8. Asthma. 9. Arthritis. 10. Osteoporosis. TREATMENT: 1. Shortness of breath/exacerbation of asthma. A Pulmonary consultation has been obtained with Dr. Dony Eli. The patient has been started on intravenous Solu-Medrol. The patient has also been started on ceftriaxone. We will follow recommendations of Pulmonary. 2. Congestive heart failure. A Cardiology consultation has been obtained with Dr. Mikey Plascencia. An echocardiogram is pending. We will follow recommendations of Cardiology. 3. Diabetes type 2. Continue metformin as above. NovoLog sliding scale has been instituted, as hyperglycemia is common with intravenous Solu-Medrol use. 4. Hypertension. Continue amlodipine and losartan as above. 5. Hypercholesterolemia. Continue pravastatin as above. 6. Arthritis. 7. Osteoporosis. Isaías Atwood MD Aug 18, 2019 18:49
[2019-08-18] MEDS: Albuterol/Ipratropium 3ml neb HHN SCH (19:39)
[2019-08-18 20:00] VITALS: BP 120/48
--- NOTE | 2019-08-18 20:03 | NUR ---
HAND-OFF: Report given to Johnathan PLUNKETT. Patient stable. Endorsed plan of care.
--- NOTE | 2019-08-18 20:15 | NUR ---
NURSE NOTES: Received pt and report from DIMITRIOS Trotter. Observed pt resting in bed and watching television. Pt is A/Ox4. telemetry monitor is in placed; pt is NSR. IV site intact, asymptomatic, and patent. Bed is in the lowest position and locked. Call light and bedside table is within reach. No signs/symptoms of acute distress noted at this time. Will continue plan of care.
[2019-08-19] VITALS: BP 124/62
--- NOTE | 2019-08-19 | NUR ---
HAND-OFF: Report given to DIMITRIOS Trotter. Plan of care endorsed.
[2019-08-19] MEDS: Albuterol/Ipratropium 3ml neb HHN SCH ×7 (02:57→23:38)
[2019-08-19 04:00] VITALS: BP 123/56
[2019-08-19 07:13] LABS: ANION GAP 6 mmol/L (5-15); BLOOD UREA NITROGEN 51 mg/dL (7-18); CALCIUM 8.7 MG/DL (8.5-10.1); CARBON DIOXIDE 31 MMOL/L (21-32); CHLORIDE 104 MMOL/L (98-107); CREATININE 1.3 MG/DL (0.55-1.30); POTASSIUM 3.7 MMOL/L (3.5-5.1); SODIUM 141 MMOL/L (136-145)
[2019-08-19 07:39] LABS: BASOPHILS % (AUTO) 0.5 % (0.0-2.0); EOSINOPHILS % (AUTO) 0.3 % (0.0-3.0); HEMATOCRIT 30.1 % (37.0-47.0); HEMOGLOBIN 9.9 G/DL (12.0-16.0); LYMPHOCYTES % (AUTO) 30.7 % (20.0-45.0); MEAN CORPUSCULAR VOLUME 82 FL (80-99); MONOCYTES % (AUTO) 10.1 % (1.0-10.0); NEUTROPHILS % (AUTO) 58.4 % (45.0-75.0); PLATELET COUNT 327 K/UL (150-450); RED BLOOD COUNT 3.69 M/UL (4.20-5.40); RED CELL DISTRIBUTION WIDTH 12.1 % (11.6-14.8); WHITE BLOOD COUNT 11.8 K/UL (4.8-10.8)
[2019-08-19 08:00] VITALS: BP 150/64
--- NOTE | 2019-08-19 08:00 | NUR ---
HAND-OFF: Report given to nurse Yanni. Patient resting on bed in no distress..
[2019-08-19] MEDS: Losartan 25mg tab ORAL SCH (08:48)
[2019-08-19] MEDS: Docusate 100mg cap ORAL SCH ×2 (08:49→21:42)
[2019-08-19] MEDS: Theophylline 80mg/15ml ORAL SCH ×2 (08:49→21:47)
[2019-08-19] MEDS: Montelukast 10mg tablet ORAL SCH (08:49)
[2019-08-19] MEDS: Aspirin EC 81mg tab ORAL SCH (08:49)
[2019-08-19] MEDS: metFORMIN 500mg tab ORAL SCH (08:50)
[2019-08-19] MEDS: Heparin 5000 units/ml inj SUBQ SCH ×2 (08:51→21:44)
[2019-08-19] MEDS ORDERED: Solu-MEDROL 40mg Inj IVP SCH (09:00)
[2019-08-19] MEDS: MEMANTINE 7 MG ORAL SCH (09:00)
--- NOTE | 2019-08-19 11:10 | Cardiac Electrophysiology PN ---
Assessment/Plan Assessment/Plan 1. Shortness of breath due to combination of CHF and pneumonia as well as lactic acid is elevated. On Lasix 20 mg IV b.i.d. EF 60% and moderate pulmonary HTN. 2. Hypertension. On losartan 25 mg daily and Norvasc 5 mg daily and Lasix. 3. Chronic obstructive pulmonary disease. On theophylline and Solu-Medrol and Abx 4. Hyperlipidemia. On Pravachol. Subjective Subjective Feeling better. No CP or SOB in NAD Objective Last 24 Hour Vital Signs Date Time Temp Pulse Resp B/P (MAP) Pulse Ox O2 Delivery O2 Flow Rate FiO2 08/19/19 08:50 95 130/54 08/19/19 08:48 130/54 08/19/19 07:20 105 18 100 Room Air 21 94 20 96 08/19/19 04:00 86 08/19/19 04:00 98.1 86 18 123/56 (78) 97 08/19/19 02:57 101 18 100 Room Air 21 102 18 98 08/19/19 00:00 87 08/19/19 00:00 97.5 90 18 124/62 (82) 96 86 08/18/19 23:30 99 18 100 Room Air 21 97 18 98 08/18/19 21:00 Room Air Room Air 08/18/19 20:00 97.0 90 17 120/48 (72) 95 08/18/19 20:00 121 08/18/19 19:59 103 18 100 Room Air 21 101 18 98 08/18/19 19:40 101 20 96 Room Air 21 08/18/19 16:00 98.2 88 19 128/56 (80) 97 08/18/19 16:00 100 08/18/19 12:00 96.7 66 18 129/58 (81) 98 08/18/19 12:00 71 Intake and Output 08/18/19 08/19/19 19:00 07:00 Intake Total 420 ml Balance 420 ml Intake Oral 420 ml # Voids 4 # Bowel Movements 1 Laboratory Tests Test 08/19/19 06:15 White Blood Count 11.8 K/UL (4.8-10.8) H Red Blood Count 3.69 M/UL (4.20-5.40) L Hemoglobin 9.9 G/DL (12.0-16.0) L Hematocrit 30.1 % (37.0-47.0) L Mean Corpuscular Volume 82 FL (80-99) Mean Corpuscular Hemoglobin 26.7 PG (27.0-31.0) L Mean Corpuscular Hemoglobin Concent 32.8 G/DL (32.0-36.0) Red Cell Distribution Width 12.1 % (11.6-14.8) Platelet Count 327 K/UL (150-450) Mean Platelet Volume 6.1 FL (6.5-10.1) L Neutrophils (%) (Auto) 58.4 % (45.0-75.0) Lymphocytes (%) (Auto) 30.7 % (20.0-45.0) Monocytes (%) (Auto) 10.1 % (1.0-10.0) H Eosinophils (%) (Auto) 0.3 % (0.0-3.0) Basophils (%) (Auto) 0.5 % (0.0-2.0) Sodium Level 141 MMOL/L (136-145) Potassium Level 3.7 MMOL/L (3.5-5.1) Chloride Level 104 MMOL/L (98-107) Carbon Dioxide Level 31 MMOL/L (21-32) Anion Gap 6 mmol/L (5-15) Blood Urea Nitrogen 51 mg/dL (7-18) H Creatinine 1.3 MG/DL (0.55-1.30) Estimat Glomerular Filtration Rate mL/min (>60) Glucose Level 103 MG/DL (74-106) Calcium Level 8.7 MG/DL (8.5-10.1) Microbiology Date/Time Source Procedure Growth Status 08/16/19 16:00 Sputum Expectorated Gram Stain - Final Complete 08/16/19 16:00 Sputum Expectorated Sputum Culture - Final NORMAL UPPER RESPIRATORY ANGY PRESENT Complete Objective HEAD AND NECK: Mild JVD. LUNGS: Coarse rhonchi and scattered wheezes. CARDIOVASCULAR: Regular S1 and S2 with no gallop or murmur. ABDOMEN: Soft. EXTREMITIES: No pitting edema. Mikey Plascencia MD Aug 19, 2019 11:10
--- NOTE | 2019-08-19 11:22 | Pulmonology Progress Note ---
Assessment/Plan Problems: (1) Asthma exacerbation in COPD (2) HTN (hypertension) (3) Diabetes mellitus Assessment/Plan BUN higher b/o Lasix, will dc lasix, she doesn't need it, never did check electrolytes in am improving slowly check sputum taper steroids, change to PO sliding scale diabetic diet Subjective ROS Limited/Unobtainable: No Interval Events: no new complains Allergies: Coded Allergies: No Known Allergies (Unverified , 04/03/17) Objective Last 24 Hour Vital Signs Date Time Temp Pulse Resp B/P (MAP) Pulse Ox O2 Delivery O2 Flow Rate FiO2 08/19/19 08:50 95 130/54 08/19/19 08:48 130/54 08/19/19 07:20 105 18 100 Room Air 21 94 20 96 08/19/19 04:00 86 08/19/19 04:00 98.1 86 18 123/56 (78) 97 08/19/19 02:57 101 18 100 Room Air 21 102 18 98 08/19/19 00:00 87 08/19/19 00:00 97.5 90 18 124/62 (82) 96 86 08/18/19 23:30 99 18 100 Room Air 21 97 18 98 08/18/19 21:00 Room Air Room Air 08/18/19 20:00 97.0 90 17 120/48 (72) 95 08/18/19 20:00 121 08/18/19 19:59 103 18 100 Room Air 21 101 18 98 08/18/19 19:40 101 20 96 Room Air 21 08/18/19 16:00 98.2 88 19 128/56 (80) 97 08/18/19 16:00 100 08/18/19 12:00 96.7 66 18 129/58 (81) 98 08/18/19 12:00 71 Intake and Output 08/18/19 08/19/19 19:00 07:00 Intake Total 420 ml Balance 420 ml Intake Oral 420 ml # Voids 4 # Bowel Movements 1 General Appearance: cachetic HEENT: normocephalic, atraumatic Respiratory/Chest: chest wall non-tender, lungs clear Breasts: no masses Cardiovascular: normal peripheral pulses Abdomen: normal bowel sounds, soft, non tender Genitourinary: normal external genitalia Extremities: no clubbing Skin: no rash 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 Microbiology Date/Time Source Procedure Growth Status 08/16/19 16:00 Sputum Expectorated Gram Stain - Final Complete 08/16/19 16:00 Sputum Expectorated Sputum Culture - Final NORMAL UPPER RESPIRATORY ANGY PRESENT Complete Laboratory Tests 08/19/19 06:15: White Blood Count 11.8H, Red Blood Count 3.69L, Hemoglobin 9.9L, Hematocrit 30.1L, Mean Corpuscular Volume 82, Mean Corpuscular Hemoglobin 26.7L, Mean Corpuscular Hemoglobin Concent 32.8, Red Cell Distribution Width 12.1, Platelet Count 327, Mean Platelet Volume 6.1L, Neutrophils (%) (Auto) 58.4, Lymphocytes ( %) (Auto) 30.7, Monocytes (%) (Auto) 10.1H, Eosinophils (%) (Auto) 0.3, Basophils (%) (Auto) 0.5, Sodium Level 141, Potassium Level 3.7, Chloride Level 104, Carbon Dioxide Level 31, Anion Gap 6, Blood Urea Nitrogen 51H, Creatinine 1.3, Estimat Glomerular Filtration Rate , Glucose Level 103, Calcium Level 8.7 Current Medications Medications (Trade) Dose Ordered Sig/Lora Route PRN Reason Start Time Stop Time Status Last Admin Dose Admin Acetaminophen (Tylenol) 650 mg Q4H PRN ORAL Mild Pain (Pain Scale 1-3) 08/16/19 11:30 09/15/19 11:29 Albuterol/ Ipratropium (Albuterol/ Ipratropium) 3 ml EVERY 4 HOURS PRN HHN Shortness of Breath 08/16/19 11:30 08/21/19 11:29 Albuterol/ Ipratropium (Albuterol/ Ipratropium) 3 ml Q4HRT HHN 08/18/19 19:00 08/23/19 18:59 08/19/19 08:42 Amlodipine Besylate (Norvasc) 5 mg DAILY ORAL 08/17/19 09:00 09/16/19 08:59 08/19/19 08:50 Aspirin (Ecotrin) 81 mg DAILY ORAL 08/17/19 09:00 09/16/19 08:59 08/19/19 08:49 Azithromycin 500 mg/Dextrose 275 ml @ 275 mls/hr Q24HRS IV 08/16/19 14:00 08/22/19 14:59 08/18/19 14:19 Dextrose (Dextrose 50%) 25 ml Q30M PRN IV Hypoglycemia 08/16/19 11:30 09/15/19 11:29 Dextrose (Dextrose 50%) 50 ml Q30M PRN IV Hypoglycemia 08/16/19 11:30 09/15/19 11:29 Docusate Sodium (Colace) 100 mg EVERY 12 HOURS ORAL 08/16/19 21:00 09/15/19 20:59 08/19/19 08:49 Famotidine (Pepcid) 20 mg DAILY ORAL 08/17/19 09:00 09/16/19 08:59 08/19/19 08:49 Furosemide (Lasix) 20 mg EVERY 12 HOURS IV 08/16/19 21:00 09/15/19 20:59 08/19/19 08:49 Guaifenesin/ Dextromethorphan (Robitussin DM Syrup) 10 ml Q4H PRN ORAL For Cough 08/16/19 11:30 09/15/19 11:29 Heparin Sodium (Porcine) (Heparin 5000 units/ml) 5,000 units EVERY 12 HOURS SUBQ 08/16/19 21:00 09/15/19 20:59 08/19/19 08:51 Losartan Potassium (Cozaar) 25 mg DAILY ORAL 08/17/19 09:00 09/16/19 08:59 08/19/19 08:48 Magnesium Hydroxide (Mom) 30 ml HSPRN PRN ORAL Constipation 08/16/19 11:30 09/15/19 11:29 Metformin HCl (Glucophage) 500 mg TWICE A DAY ORAL 08/16/19 18:00 09/15/19 17:59 08/19/19 08:50 Methylprednisolone Sodium Succinate (Solu-MEDROL) 40 mg DAILY IVP 08/19/19 09:00 09/15/19 13:59 08/19/19 08:50 Montelukast Sodium (Singulair) 10 mg DAILY ORAL 08/17/19 09:00 09/16/19 08:59 08/19/19 08:49 Patient Own Medication (Patient's Own Med) 1 ea DAILY ORAL 08/17/19 14:30 09/16/19 14:29 08/19/19 09:00 Pravastatin Sodium (Pravachol) 20 mg BEDTIME ORAL 08/16/19 21:00 09/15/19 20:59 08/18/19 21:21 Temazepam (Restoril) 15 mg DAILYPRN PRN ORAL Insomnia 08/16/19 11:30 08/23/19 11:29 Theophylline (Theophylline) 100 mg EVERY 12 HOURS ORAL 08/16/19 21:00 09/15/19 20:59 08/19/19 08:49 Dony Eli MD Aug 19, 2019 11:22
--- NOTE | 2019-08-19 11:52 | Infectious Diseases Prog Note ---
Assessment/Plan Assessment/Plan Assessment: Afebrile Mild leukocytosis (s/p high dose steroids) -08/16 U/a neg Bcx NTD Asthma/COPD exacerbation CHF exacerbation -08/17 CXR:Cardiomegaly. Mild central vascular congestion. No focal infiltrate or consolidation. -influenza sc neg -08/16 CXR: Hyperinflated lungs may be COPD. No acute process. sp cx normal resp jolly HTN Dm2 HLD asthma s/p open cholecystectomy 03/2019 s/p RONNIE and BSO CHF s/p b/l cataract surgery arthritis osteoporosis Plan: -Continue Azithromycin #4/5 for COPD exacerbation -08/18 SP Ceftriaxone #3 -f/u cx -Monitor CBC/CMP, temperatures -aspiration precautions Thank you for this consultation. Will continue to follow along with you. Discussed with RN Subjective Allergies: Coded Allergies: No Known Allergies (Unverified , 04/03/17) Subjective afebrile mild leukocytosis (on steroids) Objective Vital Signs Last 24 Hour Vital Signs Date Time Temp Pulse Resp B/P (MAP) Pulse Ox O2 Delivery O2 Flow Rate FiO2 08/19/19 09:00 Room Air Room Air 08/19/19 08:50 95 130/54 08/19/19 08:48 130/54 08/19/19 08:00 96 08/19/19 07:20 105 18 100 Room Air 21 94 20 96 08/19/19 04:00 86 08/19/19 04:00 98.1 86 18 123/56 (78) 97 08/19/19 02:57 101 18 100 Room Air 21 102 18 98 08/19/19 00:00 87 08/19/19 00:00 97.5 90 18 124/62 (82) 96 86 08/18/19 23:30 99 18 100 Room Air 21 97 18 98 08/18/19 21:00 Room Air Room Air 08/18/19 20:00 97.0 90 17 120/48 (72) 95 08/18/19 20:00 121 08/18/19 19:59 103 18 100 Room Air 21 101 18 98 08/18/19 19:40 101 20 96 Room Air 21 08/18/19 16:00 98.2 88 19 128/56 (80) 97 08/18/19 16:00 100 08/18/19 12:00 96.7 66 18 129/58 (81) 98 08/18/19 12:00 71 Height (Feet): 4 Height (Inches): 9.00 Weight (Pounds): 78 Objective GENERAL: no apparent distress. HEENT: Extraocular movements are intact. NECK: Supple CHEST: Lungs with decreased breath sounds at bilateral bases. Otherwise, without wheezes or rales. CARDIOVASCULAR: Regular rhythm and rate. S1, S2 normal without murmurs, rubs, or gallops. ABDOMEN: Soft, nontender, and nondistended. Positive bowel sounds. No evidence of hepatosplenomegaly. Currently, no rebound or guarding noted. EXTREMITIES: Negative for clubbing, cyanosis, or edema. Microbiology Date/Time Source Procedure Growth Status 08/16/19 16:00 Sputum Expectorated Gram Stain - Final Complete 08/16/19 16:00 Sputum Expectorated Sputum Culture - Final NORMAL UPPER RESPIRATORY JOLLY PRESENT Complete Laboratory Tests Test 08/19/19 06:15 White Blood Count 11.8 K/UL (4.8-10.8) H Red Blood Count 3.69 M/UL (4.20-5.40) L Hemoglobin 9.9 G/DL (12.0-16.0) L Hematocrit 30.1 % (37.0-47.0) L Mean Corpuscular Volume 82 FL (80-99) Mean Corpuscular Hemoglobin 26.7 PG (27.0-31.0) L Mean Corpuscular Hemoglobin Concent 32.8 G/DL (32.0-36.0) Red Cell Distribution Width 12.1 % (11.6-14.8) Platelet Count 327 K/UL (150-450) Mean Platelet Volume 6.1 FL (6.5-10.1) L Neutrophils (%) (Auto) 58.4 % (45.0-75.0) Lymphocytes (%) (Auto) 30.7 % (20.0-45.0) Monocytes (%) (Auto) 10.1 % (1.0-10.0) H Eosinophils (%) (Auto) 0.3 % (0.0-3.0) Basophils (%) (Auto) 0.5 % (0.0-2.0) Sodium Level 141 MMOL/L (136-145) Potassium Level 3.7 MMOL/L (3.5-5.1) Chloride Level 104 MMOL/L (98-107) Carbon Dioxide Level 31 MMOL/L (21-32) Anion Gap 6 mmol/L (5-15) Blood Urea Nitrogen 51 mg/dL (7-18) H Creatinine 1.3 MG/DL (0.55-1.30) Estimat Glomerular Filtration Rate mL/min (>60) Glucose Level 103 MG/DL (74-106) Calcium Level 8.7 MG/DL (8.5-10.1) Current Medications Medications (Trade) Dose Ordered Sig/Lora Route PRN Reason Start Time Stop Time Status Last Admin Dose Admin Acetaminophen (Tylenol) 650 mg Q4H PRN ORAL Mild Pain (Pain Scale 1-3) 08/16/19 11:30 09/15/19 11:29 Albuterol/ Ipratropium (Albuterol/ Ipratropium) 3 ml EVERY 4 HOURS PRN HHN Shortness of Breath 08/16/19 11:30 08/21/19 11:29 Albuterol/ Ipratropium (Albuterol/ Ipratropium) 3 ml Q4HRT HHN 08/18/19 19:00 08/23/19 18:59 08/19/19 08:42 Amlodipine Besylate (Norvasc) 5 mg DAILY ORAL 08/17/19 09:00 09/16/19 08:59 08/19/19 08:50 Aspirin (Ecotrin) 81 mg DAILY ORAL 08/17/19 09:00 09/16/19 08:59 08/19/19 08:49 Azithromycin 500 mg/Dextrose 275 ml @ 275 mls/hr Q24HRS IV 08/16/19 14:00 08/22/19 14:59 08/18/19 14:19 Dextrose (Dextrose 50%) 25 ml Q30M PRN IV Hypoglycemia 08/16/19 11:30 09/15/19 11:29 Dextrose (Dextrose 50%) 50 ml Q30M PRN IV Hypoglycemia 08/16/19 11:30 09/15/19 11:29 Docusate Sodium (Colace) 100 mg EVERY 12 HOURS ORAL 08/16/19 21:00 09/15/19 20:59 08/19/19 08:49 Famotidine (Pepcid) 20 mg DAILY ORAL 08/17/19 09:00 09/16/19 08:59 08/19/19 08:49 Guaifenesin/ Dextromethorphan (Robitussin DM Syrup) 10 ml Q4H PRN ORAL For Cough 08/16/19 11:30 09/15/19 11:29 Heparin Sodium (Porcine) (Heparin 5000 units/ml) 5,000 units EVERY 12 HOURS SUBQ 08/16/19 21:00 09/15/19 20:59 08/19/19 08:51 Losartan Potassium (Cozaar) 25 mg DAILY ORAL 08/17/19 09:00 09/16/19 08:59 08/19/19 08:48 Magnesium Hydroxide (Mom) 30 ml HSPRN PRN ORAL Constipation 08/16/19 11:30 09/15/19 11:29 Metformin HCl (Glucophage) 500 mg TWICE A DAY ORAL 08/16/19 18:00 09/15/19 17:59 08/19/19 08:50 Montelukast Sodium (Singulair) 10 mg DAILY ORAL 08/17/19 09:00 09/16/19 08:59 08/19/19 08:49 Patient Own Medication (Patient's Own Med) 1 ea DAILY ORAL 08/17/19 14:30 09/16/19 14:29 08/19/19 09:00 Pravastatin Sodium (Pravachol) 20 mg BEDTIME ORAL 08/16/19 21:00 09/15/19 20:59 08/18/19 21:21 Temazepam (Restoril) 15 mg DAILYPRN PRN ORAL Insomnia 08/16/19 11:30 08/23/19 11:29 Theophylline (Theophylline) 100 mg EVERY 12 HOURS ORAL 08/16/19 21:00 09/15/19 20:59 08/19/19 08:49 Magaly Gilmore M.D. Aug 19, 2019 11:52
[2019-08-19 12:00] VITALS: BP 121/59
--- NOTE | 2019-08-19 13:05 | NUR ---
NURSE NOTES: Patient had an episode of PSVT for 4 [address] in 110-120's[address] Dr. Hurd contacted.
[2019-08-19] MEDS: Azithromycin 250mg tab ORAL SCH (14:02)
[2019-08-19 16:00] VITALS: BP 100/42
--- NOTE | 2019-08-19 16:22 | NUR ---
NURSE NOTES: No new orders per Dr. Hurd.
--- NOTE | 2019-08-19 17:43 | Internal Med Progress Note ---
Subjective Date of Service: Aug 19, 2019 Physician Name Isaías Atwood Attending Physician Logan Camargo MD Current Medications Medications (Trade) Dose Ordered Sig/Lora Route PRN Reason Start Time Stop Time Status Last Admin Dose Admin Acetaminophen (Tylenol) 650 mg Q4H PRN ORAL Mild Pain (Pain Scale 1-3) 08/16/19 11:30 09/15/19 11:29 Albuterol/ Ipratropium (Albuterol/ Ipratropium) 3 ml EVERY 4 HOURS PRN HHN Shortness of Breath 08/16/19 11:30 08/21/19 11:29 Albuterol/ Ipratropium (Albuterol/ Ipratropium) 3 ml Q4HRT HHN 08/18/19 19:00 08/23/19 18:59 08/19/19 16:24 Amlodipine Besylate (Norvasc) 5 mg DAILY ORAL 08/17/19 09:00 09/16/19 08:59 08/19/19 08:50 Aspirin (Ecotrin) 81 mg DAILY ORAL 08/17/19 09:00 09/16/19 08:59 08/19/19 08:49 Azithromycin (Zithromax) 250 mg DAILY ORAL 08/19/19 14:00 08/20/19 23:59 08/19/19 14:02 Dextrose (Dextrose 50%) 25 ml Q30M PRN IV Hypoglycemia 08/16/19 11:30 09/15/19 11:29 Dextrose (Dextrose 50%) 50 ml Q30M PRN IV Hypoglycemia 08/16/19 11:30 09/15/19 11:29 Docusate Sodium (Colace) 100 mg EVERY 12 HOURS ORAL 08/16/19 21:00 09/15/19 20:59 08/19/19 08:49 Famotidine (Pepcid) 20 mg DAILY ORAL 08/17/19 09:00 09/16/19 08:59 08/19/19 08:49 Guaifenesin/ Dextromethorphan (Robitussin DM Syrup) 10 ml Q4H PRN ORAL For Cough 08/16/19 11:30 09/15/19 11:29 Heparin Sodium (Porcine) (Heparin 5000 units/ml) 5,000 units EVERY 12 HOURS SUBQ 08/16/19 21:00 09/15/19 20:59 08/19/19 08:51 Losartan Potassium (Cozaar) 25 mg DAILY ORAL 08/17/19 09:00 09/16/19 08:59 08/19/19 08:48 Magnesium Hydroxide (Mom) 30 ml HSPRN PRN ORAL Constipation 08/16/19 11:30 09/15/19 11:29 Montelukast Sodium (Singulair) 10 mg DAILY ORAL 08/17/19 09:00 09/16/19 08:59 08/19/19 08:49 Patient Own Medication (Patient's Own Med) 1 ea DAILY ORAL 08/17/19 14:30 09/16/19 14:29 08/19/19 09:00 Pravastatin Sodium (Pravachol) 20 mg BEDTIME ORAL 08/16/19 21:00 09/15/19 20:59 08/18/19 21:21 Temazepam (Restoril) 15 mg DAILYPRN PRN ORAL Insomnia 08/16/19 11:30 08/23/19 11:29 Theophylline (Theophylline) 100 mg EVERY 12 HOURS ORAL 08/16/19 21:00 09/15/19 20:59 08/19/19 08:49 Allergies: Coded Allergies: No Known Allergies (Unverified , 04/03/17) ROS Limited/Unobtainable: No Constitutional: Reports: no symptoms HEENT: Reports: no symptoms Cardiovascular: Reports: no symptoms Respiratory: Reports: no symptoms Gastrointestinal/Abdominal: Reports: no symptoms Genitourinary: Reports: no symptoms Neurologic/Psychiatric: Reports: no symptoms Subjective 83 YO F admitted with dyspnea. Now acute asthma exacerbation and CHF. Cover for Int Med-Dr Camargo Objective Last Vital Signs Date Time Temp Pulse Resp B/P (MAP) Pulse Ox O2 Delivery O2 Flow Rate FiO2 08/19/19 15:20 99 20 100 Room Air 21 80 18 97 08/19/19 12:00 97.1 121/59 (79) Laboratory Tests Test 08/19/19 06:15 White Blood Count 11.8 K/UL (4.8-10.8) H Red Blood Count 3.69 M/UL (4.20-5.40) L Hemoglobin 9.9 G/DL (12.0-16.0) L Hematocrit 30.1 % (37.0-47.0) L Mean Corpuscular Volume 82 FL (80-99) Mean Corpuscular Hemoglobin 26.7 PG (27.0-31.0) L Mean Corpuscular Hemoglobin Concent 32.8 G/DL (32.0-36.0) Red Cell Distribution Width 12.1 % (11.6-14.8) Platelet Count 327 K/UL (150-450) Mean Platelet Volume 6.1 FL (6.5-10.1) L Neutrophils (%) (Auto) 58.4 % (45.0-75.0) Lymphocytes (%) (Auto) 30.7 % (20.0-45.0) Monocytes (%) (Auto) 10.1 % (1.0-10.0) H Eosinophils (%) (Auto) 0.3 % (0.0-3.0) Basophils (%) (Auto) 0.5 % (0.0-2.0) Sodium Level 141 MMOL/L (136-145) Potassium Level 3.7 MMOL/L (3.5-5.1) Chloride Level 104 MMOL/L (98-107) Carbon Dioxide Level 31 MMOL/L (21-32) Anion Gap 6 mmol/L (5-15) Blood Urea Nitrogen 51 mg/dL (7-18) H Creatinine 1.3 MG/DL (0.55-1.30) Estimat Glomerular Filtration Rate mL/min (>60) Glucose Level 103 MG/DL (74-106) Calcium Level 8.7 MG/DL (8.5-10.1) Intake and Output 08/18/19 08/19/19 19:00 07:00 Intake Total 420 ml Balance 420 ml Intake Oral 420 ml # Voids 4 # Bowel Movements 1 Objective PHYSICAL EXAMINATION: GENERAL: The patient is a well-developed and well-nourished thin-appearing female, in no apparent distress. HEENT: Eyes, pupils are equal and responsive to light and accommodation. Extraocular movements are intact. NECK: Supple without lymphadenopathy. CHEST: Lungs with decreased breath sounds at bilateral bases. Otherwise, without wheezes or rales. CARDIOVASCULAR: Regular rhythm and rate. S1, S2 normal without murmurs, rubs, or gallops. ABDOMEN: Soft, nontender, and nondistended. Positive bowel sounds. No evidence of hepatosplenomegaly. Currently, no rebound or guarding noted. EXTREMITIES: Negative for clubbing, cyanosis, or edema. RECTAL/GENITAL: Not performed. NEUROLOGIC: Cranial nerves II through XII are grossly intact without focal deficits. Motor strength is 5/5 bilaterally. Deep tendon reflexes are 2+ plantar. Assessment/Plan Assessment/Plan ASSESSMENT: This is an 83-year-old female. 1. Shortness of breath. 2. Cough. 3. Congestive heart failure. 4. Acute exacerbation of asthma with bronchitis. 5. Type 2 diabetes. 6. Hypertension. 7. Hypercholesteremia. 8. Asthma. 9. Arthritis. 10. Osteoporosis. TREATMENT: 1. Shortness of breath/exacerbation of asthma. A Pulmonary consultation has been obtained with Dr. Dony Eli. The patient has been started on intravenous Solu-Medrol. ABX=azithromycin. We will follow recommendations of Pulmonary. 2. Congestive heart failure. A Cardiology consultation has been obtained with Dr. Mikey Plascencia. An echocardiogram is pending. We will follow recommendations of Cardiology. 3. Diabetes type 2. Continue metformin as above. NovoLog sliding scale has been instituted, as hyperglycemia is common with intravenous Solu-Medrol use. 4. Hypertension. Continue amlodipine and losartan as above. 5. Hypercholesterolemia. Continue pravastatin as above. 6. Arthritis. 7. Osteoporosis. Isaías Atwood MD Aug 19, 2019 17:43
--- NOTE | 2019-08-19 19:08 | NUR ---
HAND-OFF: Report given to Concetta Salas RN. Patient stable. Plan of care endorsed.
[2019-08-19 20:00] VITALS: BP 117/56
[2019-08-20] VITALS: BP 120/56
[2019-08-20] MEDS: Albuterol/Ipratropium 3ml neb HHN SCH ×6 (03:44→23:01)
[2019-08-20 04:00] VITALS: BP 116/56
--- NOTE | 2019-08-20 06:26 | NUR ---
HAND-OFF: Report given to nurseLE.pt. denies pain or discomfort,At 0530 vent to the btr. and head short run of svt rate 160..
--- NOTE | 2019-08-20 07:30 | NUR ---
NURSE NOTES: Nurse report given by DIMITRIOS Hylton. Patient's awake and sleeping in bed, but easily awake, breathing regular and unlabored, denies pain, no s/s of distress or SOB. Bed low and locked, call light within reach, side rails x 3, bed alarm is on, reminded patient to call nurse when needed to walk. IV is saline locked, flushed well, patent and asymptomatic. hospital monitor is on. Will continue to monitor.
[2019-08-20 07:54] LABS: BASOPHILS % (AUTO) 0.6 % (0.0-2.0); EOSINOPHILS % (AUTO) 1.4 % (0.0-3.0); HEMATOCRIT 27.7 % (37.0-47.0); HEMOGLOBIN 9.2 G/DL (12.0-16.0); LYMPHOCYTES % (AUTO) 29.1 % (20.0-45.0); MEAN CORPUSCULAR VOLUME 82 FL (80-99); MONOCYTES % (AUTO) 10.9 % (1.0-10.0); PLATELET COUNT 304 K/UL (150-450); RED BLOOD COUNT 3.39 M/UL (4.20-5.40); RED CELL DISTRIBUTION WIDTH 12.8 % (11.6-14.8); WHITE BLOOD COUNT 9.4 K/UL (4.8-10.8)
[2019-08-20 08:00] VITALS: BP 129/60
[2019-08-20 08:32] LABS: ANION GAP 6 mmol/L (5-15); BLOOD UREA NITROGEN 56 mg/dL (7-18); CALCIUM 8.8 MG/DL (8.5-10.1); CARBON DIOXIDE 32 MMOL/L (21-32); CHLORIDE 104 MMOL/L (98-107); CREATININE 1.2 MG/DL (0.55-1.30); SODIUM 142 MMOL/L (136-145)
[2019-08-20] MEDS: Theophylline 80mg/15ml ORAL SCH ×2 (08:58→20:55)
[2019-08-20] MEDS: Losartan 25mg tab ORAL SCH (08:59)
[2019-08-20] MEDS: Aspirin EC 81mg tab ORAL SCH (08:59)
[2019-08-20] MEDS: Docusate 100mg cap ORAL SCH ×2 (08:59→20:52)
[2019-08-20] MEDS: Azithromycin 250mg tab ORAL SCH (08:59)
[2019-08-20] MEDS: Montelukast 10mg tablet ORAL SCH (08:59)
[2019-08-20] MEDS: MEMANTINE 7 MG ORAL SCH (09:00)
[2019-08-20] MEDS: Heparin 5000 units/ml inj SUBQ SCH ×2 (09:07→20:56)
--- NOTE | 2019-08-20 10:10 | Cardiac Electrophysiology PN ---
Assessment/Plan Assessment/Plan 1. Shortness of breath due to combination of CHF and pneumonia as well as lactic acid is elevated. Change Lasix to 40 po daily and iv Abx EF 60% and moderate pulmonary HTN. 2. Hypertension. On Losartan 25 mg daily, Norvasc 5 mg daily and Lasix. 3. Chronic obstructive pulmonary disease. On theophylline and Solu-Medrol and Abx 4. Hyperlipidemia. On Pravachol. BISHOP RN Subjective Subjective Still coughing with phlegm Objective Last 24 Hour Vital Signs Date Time Temp Pulse Resp B/P (MAP) Pulse Ox O2 Delivery O2 Flow Rate FiO2 08/20/19 09:00 Room Air Room Air 08/20/19 08:59 129/60 08/20/19 08:59 97 129/60 08/20/19 08:00 98.2 97 17 129/60 (83) 97 08/20/19 07:48 79 18 96 Room Air 21 08/20/19 04:00 90 08/20/19 04:00 98.0 88 18 116/56 (76) 08/20/19 03:44 83 17 99 Room Air 21 82 18 96 08/20/19 00:00 98.0 89 18 120/56 (77) 97 08/19/19 23:38 80 17 99 Room Air 21 76 18 97 08/19/19 21:00 Room Air Room Air 08/19/19 20:17 81 17 100 Room Air 21 76 18 97 08/19/19 20:00 98.0 90 18 117/56 (76) 99 08/19/19 20:00 90 08/19/19 16:00 98.2 99 18 100/42 (61) 99 08/19/19 16:00 137 08/19/19 15:20 99 20 100 Room Air 21 80 18 97 08/19/19 12:51 170 08/19/19 12:00 92 08/19/19 12:00 97.1 115 18 121/59 (79) 95 Intake and Output 08/19/19 08/20/19 19:00 07:00 Intake Total 720 ml 200 ml Balance 720 ml 200 ml Intake Oral 720 ml 200 ml # Voids 3 1 Laboratory Tests Test 08/20/19 06:40 White Blood Count 9.4 K/UL (4.8-10.8) Red Blood Count 3.39 M/UL (4.20-5.40) L Hemoglobin 9.2 G/DL (12.0-16.0) L Hematocrit 27.7 % (37.0-47.0) L Mean Corpuscular Volume 82 FL (80-99) Mean Corpuscular Hemoglobin 27.3 PG (27.0-31.0) Mean Corpuscular Hemoglobin Concent 33.4 G/DL (32.0-36.0) Red Cell Distribution Width 12.8 % (11.6-14.8) Platelet Count 304 K/UL (150-450) Mean Platelet Volume 5.8 FL (6.5-10.1) L Neutrophils (%) (Auto) 58.0 % (45.0-75.0) Lymphocytes (%) (Auto) 29.1 % (20.0-45.0) Monocytes (%) (Auto) 10.9 % (1.0-10.0) H Eosinophils (%) (Auto) 1.4 % (0.0-3.0) Basophils (%) (Auto) 0.6 % (0.0-2.0) Sodium Level 142 MMOL/L (136-145) Potassium Level 4.0 MMOL/L (3.5-5.1) Chloride Level 104 MMOL/L (98-107) Carbon Dioxide Level 32 MMOL/L (21-32) Anion Gap 6 mmol/L (5-15) Blood Urea Nitrogen 56 mg/dL (7-18) H Creatinine 1.2 MG/DL (0.55-1.30) Estimat Glomerular Filtration Rate 43.0 mL/min (>60) Glucose Level 94 MG/DL (74-106) Calcium Level 8.8 MG/DL (8.5-10.1) Objective HEAD AND NECK: Mild JVD. LUNGS: Coarse rhonchi and scattered wheezes. CARDIOVASCULAR: Regular S1 and S2 with no gallop or murmur. ABDOMEN: Soft. EXTREMITIES: No pitting edema. Mikey Plascencia MD Aug 20, 2019 10:10
--- NOTE | 2019-08-20 10:49 | NUR ---
CASE MANAGEMENT:REVIEW 08/20/19 SI: ASTHMA EXACERBATION. COPD. CHF 98.2 97 17 129/60 97% ON RA H/H-9.2/27.7 BUN+56 IS: LASIX PO QD AZITHROMYCIN PO QD DUONEB HHN Q4HRS RTC NORVASC PO QD ASA PO QD COZAAR PO QD SINGULAR PO QD BULMARO-DUR PO Q12 : TELEMETRY STATUS DCP: FROM HOME
--- NOTE | 2019-08-20 11:37 | Internal Med Progress Note ---
Subjective Date of Service: Aug 20, 2019 Physician Name Atwood,Isaías Attending Physician Logan Camargo MD Current Medications Medications (Trade) Dose Ordered Sig/Lora Route PRN Reason Start Time Stop Time Status Last Admin Dose Admin Acetaminophen (Tylenol) 650 mg Q4H PRN ORAL Mild Pain (Pain Scale 1-3) 08/16/19 11:30 09/15/19 11:29 Albuterol/ Ipratropium (Albuterol/ Ipratropium) 3 ml EVERY 4 HOURS PRN HHN Shortness of Breath 08/16/19 11:30 08/21/19 11:29 Albuterol/ Ipratropium (Albuterol/ Ipratropium) 3 ml Q4HRT HHN 08/18/19 19:00 08/23/19 18:59 08/20/19 07:48 Amlodipine Besylate (Norvasc) 5 mg DAILY ORAL 08/17/19 09:00 09/16/19 08:59 08/20/19 08:59 Aspirin (Ecotrin) 81 mg DAILY ORAL 08/17/19 09:00 09/16/19 08:59 08/20/19 08:59 Azithromycin (Zithromax) 250 mg DAILY ORAL 08/19/19 14:00 08/20/19 23:59 08/20/19 08:59 Dextrose (Dextrose 50%) 25 ml Q30M PRN IV Hypoglycemia 08/16/19 11:30 09/15/19 11:29 Dextrose (Dextrose 50%) 50 ml Q30M PRN IV Hypoglycemia 08/16/19 11:30 09/15/19 11:29 Docusate Sodium (Colace) 100 mg EVERY 12 HOURS ORAL 08/16/19 21:00 09/15/19 20:59 08/20/19 08:59 Famotidine (Pepcid) 20 mg DAILY ORAL 08/17/19 09:00 09/16/19 08:59 08/20/19 08:59 Furosemide (Lasix) 40 mg DAILY ORAL 08/21/19 09:00 09/20/19 08:59 Guaifenesin/ Dextromethorphan (Robitussin DM Syrup) 10 ml Q4H PRN ORAL For Cough 08/16/19 11:30 09/15/19 11:29 Heparin Sodium (Porcine) (Heparin 5000 units/ml) 5,000 units EVERY 12 HOURS SUBQ 08/16/19 21:00 09/15/19 20:59 08/20/19 09:07 Losartan Potassium (Cozaar) 25 mg DAILY ORAL 08/17/19 09:00 09/16/19 08:59 08/20/19 08:59 Magnesium Hydroxide (Mom) 30 ml HSPRN PRN ORAL Constipation 08/16/19 11:30 09/15/19 11:29 Montelukast Sodium (Singulair) 10 mg DAILY ORAL 08/17/19 09:00 09/16/19 08:59 08/20/19 08:59 Patient Own Medication (Patient's Own Med) 1 ea DAILY ORAL 08/17/19 14:30 09/16/19 14:29 08/20/19 09:00 Pravastatin Sodium (Pravachol) 20 mg BEDTIME ORAL 08/16/19 21:00 09/15/19 20:59 08/19/19 21:42 Temazepam (Restoril) 15 mg DAILYPRN PRN ORAL Insomnia 08/16/19 11:30 08/23/19 11:29 Theophylline (Theophylline) 100 mg EVERY 12 HOURS ORAL 08/16/19 21:00 09/15/19 20:59 08/20/19 08:58 Allergies: Coded Allergies: No Known Allergies (Unverified , 04/03/17) ROS Limited/Unobtainable: No Constitutional: Reports: no symptoms HEENT: Reports: no symptoms Cardiovascular: Reports: no symptoms Respiratory: Reports: no symptoms Gastrointestinal/Abdominal: Reports: no symptoms Genitourinary: Reports: no symptoms Neurologic/Psychiatric: Reports: no symptoms Subjective 83 YO F admitted with dyspnea. Now acute asthma exacerbation and CHF. Cover for Int Marcelo-Dr Camargo Objective Last Vital Signs Date Time Temp Pulse Resp B/P (MAP) Pulse Ox O2 Delivery O2 Flow Rate FiO2 08/20/19 09:00 Room Air Room Air 08/20/19 08:59 129/60 08/20/19 08:59 97 08/20/19 08:00 98.2 17 97 08/20/19 07:48 21 Laboratory Tests Test 08/20/19 06:40 White Blood Count 9.4 K/UL (4.8-10.8) Red Blood Count 3.39 M/UL (4.20-5.40) L Hemoglobin 9.2 G/DL (12.0-16.0) L Hematocrit 27.7 % (37.0-47.0) L Mean Corpuscular Volume 82 FL (80-99) Mean Corpuscular Hemoglobin 27.3 PG (27.0-31.0) Mean Corpuscular Hemoglobin Concent 33.4 G/DL (32.0-36.0) Red Cell Distribution Width 12.8 % (11.6-14.8) Platelet Count 304 K/UL (150-450) Mean Platelet Volume 5.8 FL (6.5-10.1) L Neutrophils (%) (Auto) 58.0 % (45.0-75.0) Lymphocytes (%) (Auto) 29.1 % (20.0-45.0) Monocytes (%) (Auto) 10.9 % (1.0-10.0) H Eosinophils (%) (Auto) 1.4 % (0.0-3.0) Basophils (%) (Auto) 0.6 % (0.0-2.0) Sodium Level 142 MMOL/L (136-145) Potassium Level 4.0 MMOL/L (3.5-5.1) Chloride Level 104 MMOL/L (98-107) Carbon Dioxide Level 32 MMOL/L (21-32) Anion Gap 6 mmol/L (5-15) Blood Urea Nitrogen 56 mg/dL (7-18) H Creatinine 1.2 MG/DL (0.55-1.30) Estimat Glomerular Filtration Rate 43.0 mL/min (>60) Glucose Level 94 MG/DL (74-106) Calcium Level 8.8 MG/DL (8.5-10.1) Intake and Output 08/19/19 08/20/19 19:00 07:00 Intake Total 720 ml 200 ml Balance 720 ml 200 ml Intake Oral 720 ml 200 ml # Voids 3 1 Objective PHYSICAL EXAMINATION: GENERAL: The patient is a well-developed and well-nourished thin-appearing female, in no apparent distress. HEENT: Eyes, pupils are equal and responsive to light and accommodation. Extraocular movements are intact. NECK: Supple without lymphadenopathy. CHEST: Lungs with decreased breath sounds at bilateral bases. Otherwise, without wheezes or rales. CARDIOVASCULAR: Regular rhythm and rate. S1, S2 normal without murmurs, rubs, or gallops. ABDOMEN: Soft, nontender, and nondistended. Positive bowel sounds. No evidence of hepatosplenomegaly. Currently, no rebound or guarding noted. EXTREMITIES: Negative for clubbing, cyanosis, or edema. RECTAL/GENITAL: Not performed. NEUROLOGIC: Cranial nerves II through XII are grossly intact without focal deficits. Motor strength is 5/5 bilaterally. Deep tendon reflexes are 2+ plantar. Assessment/Plan Assessment/Plan ASSESSMENT: This is an 83-year-old female. 1. Shortness of breath. 2. Cough. 3. Congestive heart failure. 4. Acute exacerbation of asthma with bronchitis. 5. Type 2 diabetes. 6. Hypertension. 7. Hypercholesteremia. 8. Asthma. 9. Arthritis. 10. Osteoporosis. 11. Renal failure TREATMENT: 1. Shortness of breath/exacerbation of asthma. A Pulmonary consultation has been obtained with Dr. Dony Eli. The patient has been started on intravenous Solu-Medrol. ABX=azithromycin. We will follow recommendations of Pulmonary. 2. Congestive heart failure. A Cardiology consultation has been obtained with Dr. Mikey Plascencia. An echocardiogram is pending. We will follow recommendations of Cardiology. 3. Diabetes type 2. Continue metformin as above. NovoLog sliding scale has been instituted, as hyperglycemia is common with intravenous Solu-Medrol use. 4. Hypertension. Continue amlodipine and losartan as above. 5. Hypercholesterolemia. Continue pravastatin as above. 6. Arthritis. 7. Osteoporosis. 8. lasix per cardiology Isaías Atwood MD Aug 20, 2019 11:37
[2019-08-20 12:00] VITALS: BP 125/67
--- NOTE | 2019-08-20 12:34 | Pulmonology Progress Note ---
Assessment/Plan Problems: (1) Asthma exacerbation in COPD (2) HTN (hypertension) (3) Diabetes mellitus Assessment/Plan BUN slightly higher check electrolytes in am improving slowly check sputum dc steroids sliding scale diabetic diet Subjective ROS Limited/Unobtainable: No Interval Events: still coughing, very dry Allergies: Coded Allergies: No Known Allergies (Unverified , 04/03/17) Objective Last 24 Hour Vital Signs Date Time Temp Pulse Resp B/P (MAP) Pulse Ox O2 Delivery O2 Flow Rate FiO2 08/20/19 09:00 Room Air Room Air 08/20/19 08:59 129/60 08/20/19 08:59 97 129/60 08/20/19 08:00 91 08/20/19 08:00 98.2 97 17 129/60 (83) 97 08/20/19 07:48 79 18 96 Room Air 21 08/20/19 04:00 90 08/20/19 04:00 98.0 88 18 116/56 (76) 08/20/19 03:44 83 17 99 Room Air 21 82 18 96 08/20/19 00:00 98.0 89 18 120/56 (77) 97 08/19/19 23:38 80 17 99 Room Air 21 76 18 97 08/19/19 21:00 Room Air Room Air 08/19/19 20:17 81 17 100 Room Air 21 76 18 97 08/19/19 20:00 98.0 90 18 117/56 (76) 99 08/19/19 20:00 90 08/19/19 16:00 98.2 99 18 100/42 (61) 99 08/19/19 16:00 137 08/19/19 15:20 99 20 100 Room Air 21 80 18 97 08/19/19 12:51 170 Intake and Output 08/19/19 08/20/19 19:00 07:00 Intake Total 720 ml 200 ml Balance 720 ml 200 ml Intake Oral 720 ml 200 ml # Voids 3 1 General Appearance: WD/WN HEENT: normocephalic, atraumatic Respiratory/Chest: chest wall non-tender, lungs clear Breasts: no masses Cardiovascular: normal rate Abdomen: normal bowel sounds, soft, non tender Genitourinary: normal external genitalia Extremities: no clubbing Neurologic/Psychiatric: manager stars II-XII grossly normal Laboratory Tests 08/20/19 06:40: White Blood Count 9.4, Red Blood Count 3.39L, Hemoglobin 9.2L, Hematocrit 27.7L , Mean Corpuscular Volume 82, Mean Corpuscular Hemoglobin 27.3, Mean Corpuscular Hemoglobin Concent 33.4, Red Cell Distribution Width 12.8, Platelet Count 304, Mean Platelet Volume 5.8L, Neutrophils (%) (Auto) 58.0, Lymphocytes ( %) (Auto) 29.1, Monocytes (%) (Auto) 10.9H, Eosinophils (%) (Auto) 1.4, Basophils (%) (Auto) 0.6, Sodium Level 142, Potassium Level 4.0, Chloride Level 104, Carbon Dioxide Level 32, Anion Gap 6, Blood Urea Nitrogen 56H, Creatinine 1.2, Estimat Glomerular Filtration Rate 43.0, Glucose Level 94, Calcium Level 8.8 Current Medications Medications (Trade) Dose Ordered Sig/Lora Route PRN Reason Start Time Stop Time Status Last Admin Dose Admin Acetaminophen (Tylenol) 650 mg Q4H PRN ORAL Mild Pain (Pain Scale 1-3) 08/16/19 11:30 09/15/19 11:29 Albuterol/ Ipratropium (Albuterol/ Ipratropium) 3 ml EVERY 4 HOURS PRN HHN Shortness of Breath 08/16/19 11:30 08/21/19 11:29 Albuterol/ Ipratropium (Albuterol/ Ipratropium) 3 ml Q4HRT HHN 08/18/19 19:00 08/23/19 18:59 08/20/19 07:48 Amlodipine Besylate (Norvasc) 5 mg DAILY ORAL 08/17/19 09:00 09/16/19 08:59 08/20/19 08:59 Aspirin (Ecotrin) 81 mg DAILY ORAL 08/17/19 09:00 09/16/19 08:59 08/20/19 08:59 Azithromycin (Zithromax) 250 mg DAILY ORAL 08/19/19 14:00 08/20/19 23:59 08/20/19 08:59 Dextrose (Dextrose 50%) 25 ml Q30M PRN IV Hypoglycemia 08/16/19 11:30 09/15/19 11:29 Dextrose (Dextrose 50%) 50 ml Q30M PRN IV Hypoglycemia 08/16/19 11:30 09/15/19 11:29 Docusate Sodium (Colace) 100 mg EVERY 12 HOURS ORAL 08/16/19 21:00 09/15/19 20:59 08/20/19 08:59 Famotidine (Pepcid) 20 mg DAILY ORAL 08/17/19 09:00 09/16/19 08:59 08/20/19 08:59 Furosemide (Lasix) 40 mg DAILY ORAL 08/21/19 09:00 09/20/19 08:59 Guaifenesin/ Dextromethorphan (Robitussin DM Syrup) 10 ml Q4H PRN ORAL For Cough 08/16/19 11:30 09/15/19 11:29 Heparin Sodium (Porcine) (Heparin 5000 units/ml) 5,000 units EVERY 12 HOURS SUBQ 08/16/19 21:00 09/15/19 20:59 08/20/19 09:07 Losartan Potassium (Cozaar) 25 mg DAILY ORAL 08/17/19 09:00 09/16/19 08:59 08/20/19 08:59 Magnesium Hydroxide (Mom) 30 ml HSPRN PRN ORAL Constipation 08/16/19 11:30 09/15/19 11:29 Montelukast Sodium (Singulair) 10 mg DAILY ORAL 08/17/19 09:00 09/16/19 08:59 08/20/19 08:59 Patient Own Medication (Patient's Own Med) 1 ea DAILY ORAL 08/17/19 14:30 09/16/19 14:29 08/20/19 09:00 Pravastatin Sodium (Pravachol) 20 mg BEDTIME ORAL 08/16/19 21:00 09/15/19 20:59 08/19/19 21:42 Temazepam (Restoril) 15 mg DAILYPRN PRN ORAL Insomnia 08/16/19 11:30 08/23/19 11:29 Theophylline (Theophylline) 100 mg EVERY 12 HOURS ORAL 08/16/19 21:00 09/15/19 20:59 08/20/19 08:58 Dony Eli MD Aug 20, 2019 12:34
[2019-08-20 15:55] VITALS: BP 128/58
--- NOTE | 2019-08-20 17:12 | Infectious Diseases Prog Note ---
Assessment/Plan Assessment/Plan Assessment: Afebrile Mild leukocytosis (s/p high dose steroids), SP -08/16 U/a neg Bcx NTD Asthma/COPD exacerbation CHF exacerbation -08/17 CXR:Cardiomegaly. Mild central vascular congestion. No focal infiltrate or consolidation. -influenza sc neg -08/16 CXR: Hyperinflated lungs may be COPD. No acute process. sp cx normal resp jolly HTN Dm2 HLD asthma s/p open cholecystectomy 03/2019 s/p RONNIE and BSO CHF s/p b/l cataract surgery arthritis osteoporosis Plan: -Continue Azithromycin #5/5 for COPD exacerbation -08/18 SP Ceftriaxone #3 -f/u cx -Monitor CBC/CMP, temperatures -aspiration precautions Thank you for this consultation. Will continue to follow along with you. Discussed with RN Subjective Allergies: Coded Allergies: No Known Allergies (Unverified , 04/03/17) Subjective afebrile mild leukocytosis resolved Objective Vital Signs Last 24 Hour Vital Signs Date Time Temp Pulse Resp B/P (MAP) Pulse Ox O2 Delivery O2 Flow Rate FiO2 08/20/19 15:55 98.2 86 16 128/58 (81) 99 08/20/19 15:34 85 19 100 Room Air 21 80 18 99 08/20/19 12:00 98.4 92 16 125/67 (86) 99 08/20/19 12:00 83 08/20/19 09:00 Room Air Room Air 08/20/19 08:59 129/60 08/20/19 08:59 97 129/60 08/20/19 08:00 91 08/20/19 08:00 98.2 97 17 129/60 (83) 97 08/20/19 07:48 79 18 96 Room Air 21 08/20/19 04:00 90 08/20/19 04:00 98.0 88 18 116/56 (76) 08/20/19 03:44 83 17 99 Room Air 21 82 18 96 08/20/19 00:00 98.0 89 18 120/56 (77) 97 08/19/19 23:38 80 17 99 Room Air 21 76 18 97 08/19/19 21:00 Room Air Room Air 08/19/19 20:17 81 17 100 Room Air 21 76 18 97 08/19/19 20:00 98.0 90 18 117/56 (76) 99 08/19/19 20:00 90 Height (Feet): 4 Height (Inches): 9.00 Weight (Pounds): 87 Objective GENERAL: no apparent distress. HEENT: Extraocular movements are intact. NECK: Supple CHEST: Lungs with decreased breath sounds at bilateral bases. CARDIOVASCULAR: Regular rhythm and rate. S1, S2 normal without murmurs ABDOMEN: Soft, nontender, and nondistended. Positive bowel sounds. no rebound or guarding noted. EXTREMITIES: Negative for clubbing, cyanosis, or edema. Laboratory Tests Test 08/20/19 06:40 White Blood Count 9.4 K/UL (4.8-10.8) Red Blood Count 3.39 M/UL (4.20-5.40) L Hemoglobin 9.2 G/DL (12.0-16.0) L Hematocrit 27.7 % (37.0-47.0) L Mean Corpuscular Volume 82 FL (80-99) Mean Corpuscular Hemoglobin 27.3 PG (27.0-31.0) Mean Corpuscular Hemoglobin Concent 33.4 G/DL (32.0-36.0) Red Cell Distribution Width 12.8 % (11.6-14.8) Platelet Count 304 K/UL (150-450) Mean Platelet Volume 5.8 FL (6.5-10.1) L Neutrophils (%) (Auto) 58.0 % (45.0-75.0) Lymphocytes (%) (Auto) 29.1 % (20.0-45.0) Monocytes (%) (Auto) 10.9 % (1.0-10.0) H Eosinophils (%) (Auto) 1.4 % (0.0-3.0) Basophils (%) (Auto) 0.6 % (0.0-2.0) Sodium Level 142 MMOL/L (136-145) Potassium Level 4.0 MMOL/L (3.5-5.1) Chloride Level 104 MMOL/L (98-107) Carbon Dioxide Level 32 MMOL/L (21-32) Anion Gap 6 mmol/L (5-15) Blood Urea Nitrogen 56 mg/dL (7-18) H Creatinine 1.2 MG/DL (0.55-1.30) Estimat Glomerular Filtration Rate 43.0 mL/min (>60) Glucose Level 94 MG/DL (74-106) Calcium Level 8.8 MG/DL (8.5-10.1) Current Medications Medications (Trade) Dose Ordered Sig/Lora Route PRN Reason Start Time Stop Time Status Last Admin Dose Admin Acetaminophen (Tylenol) 650 mg Q4H PRN ORAL Mild Pain (Pain Scale 1-3) 08/16/19 11:30 09/15/19 11:29 Albuterol/ Ipratropium (Albuterol/ Ipratropium) 3 ml EVERY 4 HOURS PRN HHN Shortness of Breath 08/16/19 11:30 08/21/19 11:29 Albuterol/ Ipratropium (Albuterol/ Ipratropium) 3 ml Q4HRT HHN 08/18/19 19:00 08/23/19 18:59 08/20/19 15:34 Amlodipine Besylate (Norvasc) 5 mg DAILY ORAL 08/17/19 09:00 09/16/19 08:59 08/20/19 08:59 Aspirin (Ecotrin) 81 mg DAILY ORAL 08/17/19 09:00 09/16/19 08:59 08/20/19 08:59 Azithromycin (Zithromax) 250 mg DAILY ORAL 08/19/19 14:00 08/20/19 23:59 08/20/19 08:59 Dextrose (Dextrose 50%) 25 ml Q30M PRN IV Hypoglycemia 08/16/19 11:30 09/15/19 11:29 Dextrose (Dextrose 50%) 50 ml Q30M PRN IV Hypoglycemia 08/16/19 11:30 09/15/19 11:29 Docusate Sodium (Colace) 100 mg EVERY 12 HOURS ORAL 08/16/19 21:00 09/15/19 20:59 08/20/19 08:59 Famotidine (Pepcid) 20 mg DAILY ORAL 08/17/19 09:00 09/16/19 08:59 08/20/19 08:59 Furosemide (Lasix) 40 mg DAILY ORAL 08/21/19 09:00 09/20/19 08:59 Guaifenesin/ Dextromethorphan (Robitussin DM Syrup) 10 ml Q4H PRN ORAL For Cough 08/16/19 11:30 09/15/19 11:29 Heparin Sodium (Porcine) (Heparin 5000 units/ml) 5,000 units EVERY 12 HOURS SUBQ 08/16/19 21:00 09/15/19 20:59 08/20/19 09:07 Losartan Potassium (Cozaar) 25 mg DAILY ORAL 08/17/19 09:00 09/16/19 08:59 08/20/19 08:59 Magnesium Hydroxide (Mom) 30 ml HSPRN PRN ORAL Constipation 08/16/19 11:30 09/15/19 11:29 Montelukast Sodium (Singulair) 10 mg DAILY ORAL 08/17/19 09:00 09/16/19 08:59 08/20/19 08:59 Patient Own Medication (Patient's Own Med) 1 ea DAILY ORAL 08/17/19 14:30 09/16/19 14:29 08/20/19 09:00 Pravastatin Sodium (Pravachol) 20 mg BEDTIME ORAL 08/16/19 21:00 09/15/19 20:59 08/19/19 21:42 Temazepam (Restoril) 15 mg DAILYPRN PRN ORAL Insomnia 08/16/19 11:30 08/23/19 11:29 Theophylline (Theophylline) 100 mg EVERY 12 HOURS ORAL 08/16/19 21:00 09/15/19 20:59 08/20/19 08:58 Magaly Gilmore M.D. Aug 20, 2019 17:12
--- NOTE | 2019-08-20 19:15 | NUR ---
Received report from nurse Kamille PLUNKETT. Patient is awake and alert and in no distress.Denies c/o pain at this time. Bed at its lowest and locked. Will continue to monitor pt.
--- NOTE | 2019-08-20 19:27 | NUR ---
HAND-OFF: Report given to DIMITRIOS Adamson. Patient's stable, plan of care endorsed.
[2019-08-20 20:00] VITALS: BP 127/67
[2019-08-21] VITALS: BP 120/56
[2019-08-21] MEDS: Albuterol/Ipratropium 3ml neb HHN SCH ×6 (03:11→23:05)
[2019-08-21 04:00] VITALS: BP 124/51
--- NOTE | 2019-08-21 07:00 | NUR ---
NURSE NOTES: Nurse report given by DIMITRIOS Adamson. Patient's sleeping in bed but easily awaken, eyes open spontaneously, Taiwanese speaking only, AO x 3, denies pain, denies chest pain, breathing regular and unlabored, no s/s of distress or SOB. Bed low and locked, call light within reach, side rails x 2, bed alarm is armed. IV is saline locked, flushed well, patent and asymptomatic. awake overnight monitor is on. Will continue to monitor.
--- NOTE | 2019-08-21 07:03 | NUR ---
HAND-OFF: Report given to Kamille PLUNKETT.Patient stable during the night.endorsed plan of care.
[2019-08-21 07:29] LABS: BASOPHILS % (AUTO) 1.1 % (0.0-2.0); EOSINOPHILS % (AUTO) 17.4 % (0.0-3.0); HEMOGLOBIN 9.5 G/DL (12.0-16.0); LYMPHOCYTES % (AUTO) 31.8 % (20.0-45.0); MEAN CORPUSCULAR VOLUME 82 FL (80-99); MONOCYTES % (AUTO) 8.9 % (1.0-10.0); NEUTROPHILS % (AUTO) 40.9 % (45.0-75.0); PLATELET COUNT 295 K/UL (150-450); RED BLOOD COUNT 3.53 M/UL (4.20-5.40); RED CELL DISTRIBUTION WIDTH 12.7 % (11.6-14.8); WHITE BLOOD COUNT 8.9 K/UL (4.8-10.8)
[2019-08-21 08:00] VITALS: BP_SYST 127; BP_SYST 147; BP_DIAS 59
[2019-08-21] MEDS: Theophylline 80mg/15ml ORAL SCH ×2 (08:25→20:46)
[2019-08-21] MEDS: MEMANTINE 7 MG ORAL SCH (08:26)
[2019-08-21] MEDS: Losartan 25mg tab ORAL SCH (08:26)
[2019-08-21 08:27] LABS: ALANINE AMINOTRANSFERASE 17 U/L (12-78); ALBUMIN 3.1 G/DL (3.4-5.0); ALBUMIN/GLOBULIN RATIO 0.9 (1.0-2.7); ALKALINE PHOSPHATASE 75 U/L (46-116); ANION GAP 6 mmol/L (5-15); ASPARTATE AMINO TRANSFERASE 16 U/L (15-37); BILIRUBIN,TOTAL 0.2 MG/DL (0.2-1.0); BLOOD UREA NITROGEN 40 mg/dL (7-18); CALCIUM 9.1 MG/DL (8.5-10.1); CARBON DIOXIDE 30 MMOL/L (21-32); CHLORIDE 107 MMOL/L (98-107); CREATININE 0.8 MG/DL (0.55-1.30); POTASSIUM 4.6 MMOL/L (3.5-5.1); SODIUM 143 MMOL/L (136-145)
[2019-08-21] MEDS: Aspirin EC 81mg tab ORAL SCH (08:27)
[2019-08-21] MEDS: Docusate 100mg cap ORAL SCH ×2 (08:27→20:46)
[2019-08-21] MEDS: Montelukast 10mg tablet ORAL SCH (08:27)
[2019-08-21] MEDS: Heparin 5000 units/ml inj SUBQ SCH ×2 (08:27→20:47)
[2019-08-21] MEDS ORDERED: Furosemide 40mg tab ORAL SCH (09:00)
--- NOTE | 2019-08-21 09:13 | NUR ---
RADIOLOGY DEPT., CHEST X-RAY DONE.-P.DYE
--- NOTE | 2019-08-21 10:30 | Diagnostic Imaging Report ---
Indication: Cough Technique: One view of the chest Comparison: 08/17/2019 Findings: There is slight blunting of the left costophrenic sulcus. Lungs an pleural spaces are otherwise clear. Heart size is upper limits of normal. The aorta is tortuous and calcified Impression: Suspect small left pleural effusion, new or increased since prior study No acute process otherwise
--- NOTE | 2019-08-21 10:35 | Infectious Diseases Prog Note ---
Assessment/Plan Assessment/Plan Assessment: Afebrile Mild leukocytosis (s/p high dose steroids), SP -2/ U/a neg Bcx NTD Asthma/COPD exacerbation CHF exacerbation -08/17 CXR:Cardiomegaly. Mild central vascular congestion. No focal infiltrate or consolidation. -influenza sc neg -08/16 CXR: Hyperinflated lungs may be COPD. No acute process. sp cx normal resp jolly HTN Dm2 HLD asthma s/p open cholecystectomy 03/2019 s/p RONNIE and BSO CHF s/p b/l cataract surgery arthritis osteoporosis Plan: -Continue to monitor off abx -08/20 SP Azithromycin #5 -08/18 SP Ceftriaxone #3 -f/u cx -Monitor CBC/CMP, temperatures -aspiration precautions Thank you for this consultation. Will continue to follow along with you. Discussed with RN Subjective Allergies: Coded Allergies: No Known Allergies (Unverified , 04/03/17) Subjective afebrile no resolved Objective Vital Signs Last 24 Hour Vital Signs Date Time Temp Pulse Resp B/P (MAP) Pulse Ox O2 Delivery O2 Flow Rate FiO2 08/21/19 09:00 Room Air Room Air 08/21/19 08:26 127/59 08/21/19 08:26 91 127/59 08/21/19 08:00 106 08/21/19 08:00 98.2 91 18 127/59 (81) 98 08/21/19 07:40 90 20 100 Room Air 21 89 20 98 08/21/19 04:00 83 08/21/19 04:00 97.0 83 18 124/51 (75) 96 08/21/19 03:13 83 20 100 Room Air 21 76 18 96 08/21/19 00:00 86 08/21/19 00:00 97.1 80 16 120/56 (77) 97 08/20/19 23:01 91 18 100 Room Air 21 96 18 98 08/20/19 21:00 Room Air Room Air 08/20/19 20:00 97.3 93 18 127/67 (87) 94 08/20/19 20:00 87 08/20/19 19:41 84 18 100 Room Air 21 74 20 98 08/20/19 16:00 90 08/20/19 15:55 98.2 86 16 128/58 (81) 99 08/20/19 15:34 85 19 100 Room Air 21 80 18 99 08/20/19 12:00 98.4 92 16 125/67 (86) 99 08/20/19 12:00 83 Height (Feet): 4 Height (Inches): 9.00 Weight (Pounds): 87 Objective GENERAL: no apparent distress. HEENT: Extraocular movements are intact. NECK: Supple CHEST: Lungs with decreased breath sounds at bilateral bases. CARDIOVASCULAR: Regular rhythm and rate. S1, S2 normal without murmurs ABDOMEN: Soft, nontender, and nondistended. Positive bowel sounds. no rebound or guarding noted. EXTREMITIES: Negative for clubbing, cyanosis, or edema. Laboratory Tests Test 08/21/19 06:29 White Blood Count 8.9 K/UL (4.8-10.8) Red Blood Count 3.53 M/UL (4.20-5.40) L Hemoglobin 9.5 G/DL (12.0-16.0) L Hematocrit 29.0 % (37.0-47.0) L Mean Corpuscular Volume 82 FL (80-99) Mean Corpuscular Hemoglobin 26.8 PG (27.0-31.0) L Mean Corpuscular Hemoglobin Concent 32.7 G/DL (32.0-36.0) Red Cell Distribution Width 12.7 % (11.6-14.8) Platelet Count 295 K/UL (150-450) Mean Platelet Volume 5.7 FL (6.5-10.1) L Neutrophils (%) (Auto) 40.9 % (45.0-75.0) L Lymphocytes (%) (Auto) 31.8 % (20.0-45.0) Monocytes (%) (Auto) 8.9 % (1.0-10.0) Eosinophils (%) (Auto) 17.4 % (0.0-3.0) H Basophils (%) (Auto) 1.1 % (0.0-2.0) Sodium Level 143 MMOL/L (136-145) Potassium Level 4.6 MMOL/L (3.5-5.1) Chloride Level 107 MMOL/L (98-107) Carbon Dioxide Level 30 MMOL/L (21-32) Anion Gap 6 mmol/L (5-15) Blood Urea Nitrogen 40 mg/dL (7-18) H Creatinine 0.8 MG/DL (0.55-1.30) Estimat Glomerular Filtration Rate > 60 mL/min (>60) Glucose Level 90 MG/DL (74-106) Calcium Level 9.1 MG/DL (8.5-10.1) Total Bilirubin 0.2 MG/DL (0.2-1.0) Aspartate Amino Transf (AST/SGOT) 16 U/L (15-37) Alanine Aminotransferase (ALT/SGPT) 17 U/L (12-78) Alkaline Phosphatase 75 U/L (46-116) Pro-B-Type Natriuretic Peptide 180 pg/mL (0-125) H Total Protein 6.6 G/DL (6.4-8.2) Albumin 3.1 G/DL (3.4-5.0) L Globulin 3.5 g/dL Albumin/Globulin Ratio 0.9 (1.0-2.7) L Current Medications Medications (Trade) Dose Ordered Sig/Lora Route PRN Reason Start Time Stop Time Status Last Admin Dose Admin Acetaminophen (Tylenol) 650 mg Q4H PRN ORAL Mild Pain (Pain Scale 1-3) 08/16/19 11:30 09/15/19 11:29 Albuterol/ Ipratropium (Albuterol/ Ipratropium) 3 ml EVERY 4 HOURS PRN HHN Shortness of Breath 08/16/19 11:30 08/21/19 11:29 Albuterol/ Ipratropium (Albuterol/ Ipratropium) 3 ml Q4HRT HHN 08/18/19 19:00 08/23/19 18:59 08/21/19 07:38 Amlodipine Besylate (Norvasc) 5 mg DAILY ORAL 08/17/19 09:00 09/16/19 08:59 08/21/19 08:26 Aspirin (Ecotrin) 81 mg DAILY ORAL 08/17/19 09:00 09/16/19 08:59 08/21/19 08:27 Dextrose (Dextrose 50%) 25 ml Q30M PRN IV Hypoglycemia 08/16/19 11:30 09/15/19 11:29 Dextrose (Dextrose 50%) 50 ml Q30M PRN IV Hypoglycemia 08/16/19 11:30 09/15/19 11:29 Docusate Sodium (Colace) 100 mg EVERY 12 HOURS ORAL 08/16/19 21:00 09/15/19 20:59 08/21/19 08:27 Famotidine (Pepcid) 20 mg DAILY ORAL 08/17/19 09:00 09/16/19 08:59 08/21/19 08:27 Furosemide (Lasix) 40 mg DAILY ORAL 08/21/19 09:00 09/20/19 08:59 08/21/19 08:27 Guaifenesin/ Dextromethorphan (Robitussin DM Syrup) 10 ml Q4H PRN ORAL For Cough 08/16/19 11:30 09/15/19 11:29 Heparin Sodium (Porcine) (Heparin 5000 units/ml) 5,000 units EVERY 12 HOURS SUBQ 08/16/19 21:00 09/15/19 20:59 08/21/19 08:27 Losartan Potassium (Cozaar) 25 mg DAILY ORAL 08/17/19 09:00 09/16/19 08:59 08/21/19 08:26 Magnesium Hydroxide (Mom) 30 ml HSPRN PRN ORAL Constipation 08/16/19 11:30 09/15/19 11:29 Montelukast Sodium (Singulair) 10 mg DAILY ORAL 08/17/19 09:00 09/16/19 08:59 08/21/19 08:27 Patient Own Medication (Patient's Own Med) 1 ea DAILY ORAL 08/17/19 14:30 09/16/19 14:29 08/21/19 08:26 Pravastatin Sodium (Pravachol) 20 mg BEDTIME ORAL 08/16/19 21:00 09/15/19 20:59 08/20/19 20:53 Temazepam (Restoril) 15 mg DAILYPRN PRN ORAL Insomnia 08/16/19 11:30 08/23/19 11:29 08/20/19 20:56 Theophylline (Theophylline) 100 mg EVERY 12 HOURS ORAL 08/16/19 21:00 09/15/19 20:59 08/21/19 08:25 Magaly Gilmore M.D. Aug 21, 2019 10:35
[2019-08-21 12:00] VITALS: BP 127/59
--- NOTE | 2019-08-21 13:44 | Pulmonology Progress Note ---
Assessment/Plan Problems: (1) Asthma exacerbation in COPD (2) HTN (hypertension) (3) Diabetes mellitus Assessment/Plan BUN slightly lower today check electrolytes in am improving slowly check sputum dc steroids sliding scale diabetic diet Subjective Interval Events: still coughing, Allergies: Coded Allergies: No Known Allergies (Unverified , 04/03/17) Objective Last 24 Hour Vital Signs Date Time Temp Pulse Resp B/P (MAP) Pulse Ox O2 Delivery O2 Flow Rate FiO2 08/21/19 12:00 86 08/21/19 12:00 98.2 94 18 127/59 (81) 95 08/21/19 11:24 82 20 99 Room Air 21 84 20 96 08/21/19 09:00 Room Air Room Air 08/21/19 08:26 127/59 08/21/19 08:26 91 127/59 08/21/19 08:00 106 08/21/19 08:00 98.2 91 18 147/59 (88) 98 08/21/19 07:40 90 20 100 Room Air 21 89 20 98 08/21/19 04:00 83 08/21/19 04:00 97.0 83 18 124/51 (75) 96 08/21/19 03:13 83 20 100 Room Air 21 76 18 96 08/21/19 00:00 86 08/21/19 00:00 97.1 80 16 120/56 (77) 97 08/20/19 23:01 91 18 100 Room Air 21 96 18 98 08/20/19 21:00 Room Air Room Air 08/20/19 20:00 97.3 93 18 127/67 (87) 94 08/20/19 20:00 87 08/20/19 19:41 84 18 100 Room Air 21 74 20 98 08/20/19 16:00 90 08/20/19 15:55 98.2 86 16 128/58 (81) 99 08/20/19 15:34 85 19 100 Room Air 21 80 18 99 Intake and Output 08/20/19 08/21/19 19:00 07:00 Intake Total 350 ml 160 ml Balance 350 ml 160 ml Intake Oral 350 ml 160 ml # Voids 2 3 # Bowel Movements 1 General Appearance: cachetic HEENT: normocephalic, atraumatic Respiratory/Chest: chest wall non-tender, accessory muscle use Breasts: no masses Cardiovascular: normal peripheral pulses Abdomen: normal bowel sounds, soft, non tender Genitourinary: normal external genitalia Extremities: no clubbing 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 Lymphatic: no neck adenopathy Laboratory Tests 08/21/19 06:29: White Blood Count 8.9, Red Blood Count 3.53L, Hemoglobin 9.5L, Hematocrit 29.0L , Mean Corpuscular Volume 82, Mean Corpuscular Hemoglobin 26.8L, Mean Corpuscular Hemoglobin Concent 32.7, Red Cell Distribution Width 12.7, Platelet Count 295, Mean Platelet Volume 5.7L, Neutrophils (%) (Auto) 40.9L, Lymphocytes (%) (Auto) 31.8, Monocytes (%) (Auto) 8.9, Eosinophils (%) (Auto) 17.4H, Basophils (%) (Auto) 1.1, Sodium Level 143, Potassium Level 4.6, Chloride Level 107, Carbon Dioxide Level 30, Anion Gap 6, Blood Urea Nitrogen 40H, Creatinine 0.8, Estimat Glomerular Filtration Rate > 60, Glucose Level 90, Calcium Level 9.1, Total Bilirubin 0.2, Aspartate Amino Transf (AST/SGOT) 16, Alanine Aminotransferase (ALT/SGPT) 17, Alkaline Phosphatase 75, Pro-B-Type Natriuretic Peptide 180H, Total Protein 6.6, Albumin 3.1L, Globulin 3.5, Albumin/Globulin Ratio 0.9L Current Medications Medications (Trade) Dose Ordered Sig/Lora Route PRN Reason Start Time Stop Time Status Last Admin Dose Admin Acetaminophen (Tylenol) 650 mg Q4H PRN ORAL Mild Pain (Pain Scale 1-3) 08/16/19 11:30 09/15/19 11:29 Albuterol/ Ipratropium (Albuterol/ Ipratropium) 3 ml Q4HRT HHN 08/18/19 19:00 08/23/19 18:59 08/21/19 11:23 Amlodipine Besylate (Norvasc) 5 mg DAILY ORAL 08/17/19 09:00 09/16/19 08:59 08/21/19 08:26 Aspirin (Ecotrin) 81 mg DAILY ORAL 08/17/19 09:00 09/16/19 08:59 08/21/19 08:27 Dextrose (Dextrose 50%) 25 ml Q30M PRN IV Hypoglycemia 08/16/19 11:30 09/15/19 11:29 Dextrose (Dextrose 50%) 50 ml Q30M PRN IV Hypoglycemia 08/16/19 11:30 09/15/19 11:29 Docusate Sodium (Colace) 100 mg EVERY 12 HOURS ORAL 08/16/19 21:00 09/15/19 20:59 08/21/19 08:27 Famotidine (Pepcid) 20 mg DAILY ORAL 08/17/19 09:00 09/16/19 08:59 08/21/19 08:27 Furosemide (Lasix) 40 mg DAILY ORAL 08/21/19 09:00 09/20/19 08:59 08/21/19 08:27 Guaifenesin/ Dextromethorphan (Robitussin DM Syrup) 10 ml Q4H PRN ORAL For Cough 08/16/19 11:30 09/15/19 11:29 08/21/19 11:04 Heparin Sodium (Porcine) (Heparin 5000 units/ml) 5,000 units EVERY 12 HOURS SUBQ 08/16/19 21:00 09/15/19 20:59 08/21/19 08:27 Losartan Potassium (Cozaar) 25 mg DAILY ORAL 08/17/19 09:00 09/16/19 08:59 08/21/19 08:26 Magnesium Hydroxide (Mom) 30 ml HSPRN PRN ORAL Constipation 08/16/19 11:30 09/15/19 11:29 Montelukast Sodium (Singulair) 10 mg DAILY ORAL 08/17/19 09:00 09/16/19 08:59 08/21/19 08:27 Patient Own Medication (Patient's Own Med) 1 ea DAILY ORAL 08/17/19 14:30 09/16/19 14:29 08/21/19 08:26 Pravastatin Sodium (Pravachol) 20 mg BEDTIME ORAL 08/16/19 21:00 09/15/19 20:59 08/20/19 20:53 Temazepam (Restoril) 15 mg DAILYPRN PRN ORAL Insomnia 08/16/19 11:30 08/23/19 11:29 08/20/19 20:56 Theophylline (Theophylline) 100 mg EVERY 12 HOURS ORAL 08/16/19 21:00 09/15/19 20:59 08/21/19 08:25 Dony Eli MD Aug 21, 2019 13:44
--- NOTE | 2019-08-21 15:17 | Cardiac Electrophysiology PN ---
Assessment/Plan Assessment/Plan 1. Shortness of breath due to combination of CHF and pneumonia DC Lasix. Continue iv Abx. EF 60% and moderate pulmonary HTN. 2. Hypertension. On Losartan 25 mg daily, Norvasc 5 mg daily and Lasix. 3. Chronic obstructive pulmonary disease. On theophylline and Solu-Medrol and Abx 4. Hyperlipidemia. On Pravachol. 5. Azotemia BUN/Cr >40. DC lasix DW RN DC tele Subjective Subjective No more coughing. IN SR on Abx Objective Last 24 Hour Vital Signs Date Time Temp Pulse Resp B/P (MAP) Pulse Ox O2 Delivery O2 Flow Rate FiO2 08/21/19 12:00 86 08/21/19 12:00 98.2 94 18 127/59 (81) 95 08/21/19 11:24 82 20 99 Room Air 21 84 20 96 08/21/19 09:00 Room Air Room Air 08/21/19 08:26 127/59 08/21/19 08:26 91 127/59 08/21/19 08:00 106 08/21/19 08:00 98.2 91 18 147/59 (88) 98 08/21/19 07:40 90 20 100 Room Air 21 89 20 98 08/21/19 04:00 83 08/21/19 04:00 97.0 83 18 124/51 (75) 96 08/21/19 03:13 83 20 100 Room Air 21 76 18 96 08/21/19 00:00 86 08/21/19 00:00 97.1 80 16 120/56 (77) 97 08/20/19 23:01 91 18 100 Room Air 21 96 18 98 08/20/19 21:00 Room Air Room Air 08/20/19 20:00 97.3 93 18 127/67 (87) 94 08/20/19 20:00 87 08/20/19 19:41 84 18 100 Room Air 21 74 20 98 08/20/19 16:00 90 08/20/19 15:55 98.2 86 16 128/58 (81) 99 08/20/19 15:34 85 19 100 Room Air 21 80 18 99 Intake and Output 08/20/19 08/21/19 19:00 07:00 Intake Total 350 ml 160 ml Balance 350 ml 160 ml Intake Oral 350 ml 160 ml # Voids 2 3 # Bowel Movements 1 Laboratory Tests Test 08/21/19 06:29 White Blood Count 8.9 K/UL (4.8-10.8) Red Blood Count 3.53 M/UL (4.20-5.40) L Hemoglobin 9.5 G/DL (12.0-16.0) L Hematocrit 29.0 % (37.0-47.0) L Mean Corpuscular Volume 82 FL (80-99) Mean Corpuscular Hemoglobin 26.8 PG (27.0-31.0) L Mean Corpuscular Hemoglobin Concent 32.7 G/DL (32.0-36.0) Red Cell Distribution Width 12.7 % (11.6-14.8) Platelet Count 295 K/UL (150-450) Mean Platelet Volume 5.7 FL (6.5-10.1) L Neutrophils (%) (Auto) 40.9 % (45.0-75.0) L Lymphocytes (%) (Auto) 31.8 % (20.0-45.0) Monocytes (%) (Auto) 8.9 % (1.0-10.0) Eosinophils (%) (Auto) 17.4 % (0.0-3.0) H Basophils (%) (Auto) 1.1 % (0.0-2.0) Sodium Level 143 MMOL/L (136-145) Potassium Level 4.6 MMOL/L (3.5-5.1) Chloride Level 107 MMOL/L (98-107) Carbon Dioxide Level 30 MMOL/L (21-32) Anion Gap 6 mmol/L (5-15) Blood Urea Nitrogen 40 mg/dL (7-18) H Creatinine 0.8 MG/DL (0.55-1.30) Estimat Glomerular Filtration Rate > 60 mL/min (>60) Glucose Level 90 MG/DL (74-106) Calcium Level 9.1 MG/DL (8.5-10.1) Total Bilirubin 0.2 MG/DL (0.2-1.0) Aspartate Amino Transf (AST/SGOT) 16 U/L (15-37) Alanine Aminotransferase (ALT/SGPT) 17 U/L (12-78) Alkaline Phosphatase 75 U/L (46-116) Pro-B-Type Natriuretic Peptide 180 pg/mL (0-125) H Total Protein 6.6 G/DL (6.4-8.2) Albumin 3.1 G/DL (3.4-5.0) L Globulin 3.5 g/dL Albumin/Globulin Ratio 0.9 (1.0-2.7) L Objective HEAD AND NECK: Mild JVD. LUNGS: Coarse rhonchi and scattered wheezes. CARDIOVASCULAR: Regular S1 and S2 with no gallop or murmur. ABDOMEN: Soft. EXTREMITIES: No pitting edema. Mikey Plascencia MD Aug 21, 2019 15:17
[2019-08-21 15:57] VITALS: BP 118/52
--- NOTE | 2019-08-21 19:09 | Internal Med Progress Note ---
Subjective Date of Service: Aug 21, 2019 Physician Name Isaías Atwood Attending Physician Logan Camargo MD Current Medications Medications (Trade) Dose Ordered Sig/Lora Route PRN Reason Start Time Stop Time Status Last Admin Dose Admin Acetaminophen (Tylenol) 650 mg Q4H PRN ORAL Mild Pain (Pain Scale 1-3) 08/16/19 11:30 09/15/19 11:29 Albuterol/ Ipratropium (Albuterol/ Ipratropium) 3 ml Q4HRT HHN 08/18/19 19:00 08/23/19 18:59 08/21/19 15:32 Amlodipine Besylate (Norvasc) 5 mg DAILY ORAL 08/17/19 09:00 09/16/19 08:59 08/21/19 08:26 Aspirin (Ecotrin) 81 mg DAILY ORAL 08/17/19 09:00 09/16/19 08:59 08/21/19 08:27 Dextrose (Dextrose 50%) 25 ml Q30M PRN IV Hypoglycemia 08/16/19 11:30 09/15/19 11:29 Dextrose (Dextrose 50%) 50 ml Q30M PRN IV Hypoglycemia 08/16/19 11:30 09/15/19 11:29 Docusate Sodium (Colace) 100 mg EVERY 12 HOURS ORAL 08/16/19 21:00 09/15/19 20:59 08/21/19 08:27 Famotidine (Pepcid) 20 mg DAILY ORAL 08/17/19 09:00 09/16/19 08:59 08/21/19 08:27 Guaifenesin/ Dextromethorphan (Robitussin DM Syrup) 10 ml Q4H PRN ORAL For Cough 08/16/19 11:30 09/15/19 11:29 08/21/19 11:04 Heparin Sodium (Porcine) (Heparin 5000 units/ml) 5,000 units EVERY 12 HOURS SUBQ 08/16/19 21:00 09/15/19 20:59 08/21/19 08:27 Losartan Potassium (Cozaar) 25 mg DAILY ORAL 08/17/19 09:00 09/16/19 08:59 08/21/19 08:26 Magnesium Hydroxide (Mom) 30 ml HSPRN PRN ORAL Constipation 08/16/19 11:30 09/15/19 11:29 Montelukast Sodium (Singulair) 10 mg DAILY ORAL 08/17/19 09:00 09/16/19 08:59 08/21/19 08:27 Patient Own Medication (Patient's Own Med) 1 ea DAILY ORAL 08/17/19 14:30 09/16/19 14:29 08/21/19 08:26 Pravastatin Sodium (Pravachol) 20 mg BEDTIME ORAL 08/16/19 21:00 09/15/19 20:59 08/20/19 20:53 Temazepam (Restoril) 15 mg DAILYPRN PRN ORAL Insomnia 08/16/19 11:30 08/23/19 11:29 08/20/19 20:56 Theophylline (Theophylline) 100 mg EVERY 12 HOURS ORAL 08/16/19 21:00 09/15/19 20:59 08/21/19 08:25 Allergies: Coded Allergies: No Known Allergies (Unverified , 04/03/17) ROS Limited/Unobtainable: No Constitutional: Reports: no symptoms HEENT: Reports: no symptoms Cardiovascular: Reports: no symptoms Respiratory: Reports: shortness of breath Gastrointestinal/Abdominal: Reports: no symptoms Genitourinary: Reports: no symptoms Neurologic/Psychiatric: Reports: no symptoms Subjective 83 YO F admitted with dyspnea. Now acute asthma exacerbation and CHF. Cover for Int Med-Dr Camargo Objective Last Vital Signs Date Time Temp Pulse Resp B/P (MAP) Pulse Ox O2 Delivery O2 Flow Rate FiO2 08/21/19 16:00 08/21/19 15:57 98.4 18 118/52 (74) 96 08/21/19 15:34 Room Air 21 Laboratory Tests Test 08/21/19 06:29 White Blood Count 8.9 K/UL (4.8-10.8) Red Blood Count 3.53 M/UL (4.20-5.40) L Hemoglobin 9.5 G/DL (12.0-16.0) L Hematocrit 29.0 % (37.0-47.0) L Mean Corpuscular Volume 82 FL (80-99) Mean Corpuscular Hemoglobin 26.8 PG (27.0-31.0) L Mean Corpuscular Hemoglobin Concent 32.7 G/DL (32.0-36.0) Red Cell Distribution Width 12.7 % (11.6-14.8) Platelet Count 295 K/UL (150-450) Mean Platelet Volume 5.7 FL (6.5-10.1) L Neutrophils (%) (Auto) 40.9 % (45.0-75.0) L Lymphocytes (%) (Auto) 31.8 % (20.0-45.0) Monocytes (%) (Auto) 8.9 % (1.0-10.0) Eosinophils (%) (Auto) 17.4 % (0.0-3.0) H Basophils (%) (Auto) 1.1 % (0.0-2.0) Sodium Level 143 MMOL/L (136-145) Potassium Level 4.6 MMOL/L (3.5-5.1) Chloride Level 107 MMOL/L (98-107) Carbon Dioxide Level 30 MMOL/L (21-32) Anion Gap 6 mmol/L (5-15) Blood Urea Nitrogen 40 mg/dL (7-18) H Creatinine 0.8 MG/DL (0.55-1.30) Estimat Glomerular Filtration Rate > 60 mL/min (>60) Glucose Level 90 MG/DL (74-106) Calcium Level 9.1 MG/DL (8.5-10.1) Total Bilirubin 0.2 MG/DL (0.2-1.0) Aspartate Amino Transf (AST/SGOT) 16 U/L (15-37) Alanine Aminotransferase (ALT/SGPT) 17 U/L (12-78) Alkaline Phosphatase 75 U/L (46-116) Pro-B-Type Natriuretic Peptide 180 pg/mL (0-125) H Total Protein 6.6 G/DL (6.4-8.2) Albumin 3.1 G/DL (3.4-5.0) L Globulin 3.5 g/dL Albumin/Globulin Ratio 0.9 (1.0-2.7) L Intake and Output 08/20/19 08/21/19 19:00 07:00 Intake Total 350 ml 160 ml Balance 350 ml 160 ml Intake Oral 350 ml 160 ml # Voids 2 3 # Bowel Movements 1 Objective PHYSICAL EXAMINATION: GENERAL: The patient is a well-developed and well-nourished thin-appearing female, in no apparent distress. HEENT: Eyes, pupils are equal and responsive to light and accommodation. Extraocular movements are intact. NECK: Supple without lymphadenopathy. CHEST: Lungs with decreased breath sounds at bilateral bases. Otherwise, without wheezes or rales. CARDIOVASCULAR: Regular rhythm and rate. S1, S2 normal without murmurs, rubs, or gallops. ABDOMEN: Soft, nontender, and nondistended. Positive bowel sounds. No evidence of hepatosplenomegaly. Currently, no rebound or guarding noted. EXTREMITIES: Negative for clubbing, cyanosis, or edema. RECTAL/GENITAL: Not performed. NEUROLOGIC: Cranial nerves II through XII are grossly intact without focal deficits. Motor strength is 5/5 bilaterally. Deep tendon reflexes are 2+ plantar. Assessment/Plan Assessment/Plan ASSESSMENT: This is an 83-year-old female. 1. Shortness of breath. 2. Cough. 3. Congestive heart failure. 4. Acute exacerbation of asthma with bronchitis. 5. Type 2 diabetes. 6. Hypertension. 7. Hypercholesteremia. 8. Asthma. 9. Arthritis. 10. Osteoporosis. 11. Renal failure TREATMENT: 1. Shortness of breath/exacerbation of asthma. A Pulmonary consultation has been obtained with Dr. Dony Eli. The patient has been started on intravenous Solu-Medrol. S/P azithromycin and ceftriaxone. We will follow recommendations of Pulmonary. 2. Congestive heart failure. A Cardiology consultation has been obtained with Dr. Mikey Plascencia. An echocardiogram is pending. We will follow recommendations of Cardiology. 3. Diabetes type 2. Continue metformin as above. NovoLog sliding scale has been instituted, as hyperglycemia is common with intravenous Solu-Medrol use. 4. Hypertension. Continue amlodipine and losartan as above. 5. Hypercholesterolemia. Continue pravastatin as above. 6. Arthritis. 7. Osteoporosis. 8. lasix per cardiology Isaías Atwood MD Aug 21, 2019 19:09
--- NOTE | 2019-08-21 19:11 | NUR ---
HAND-OFF: Report given to ZA Noyola. Plan of care endorsed, patient's stable.
[2019-08-21 20:00] VITALS: BP 139/72
--- NOTE | 2019-08-21 20:00 | NUR ---
NURSE NOTES: RECEIVED PATIENT LYING IN BED, AWAKE, ALERT/ORIENTED X3, VERBALLY RESPONSIVE/TAJIK SPEAKING, ABLE TO MAKE SIMPLE NEEDS KNOWN IN CYPRIOT, DENIES PAIN. NO SIGNS AND SYMPTOMS OF ACUTE CARDIO RESPIRATORY DISTRESS/SHORTNESS OF BREATH, DENIES CHEST PAIN, NO PERIPHERAL EDEMA NOTED. NO COMPLAINTS OF GI DISCOMFORT, ABDOMEN SOFT/NON DISTENDED, BOWEL SOUNDS AUDIBLE, NO N/V/DIARRHEA. SIDE RAILS UP X2, BED IN LOWEST POSITION FOR SAFETY. ENCOURAGED PATIENT TO UTILIZE CALL LIGHT FOR ASSISTANCE, ACKNOWLEDGED UNDERSTANDING. TRANSFER TO MED SURG, NO BED AVAILABLE. CONTINUE WITH CURRENT PLAN OF CARE. NAD.
[2019-08-22] VITALS: BP 112/45
[2019-08-22] MEDS: Albuterol/Ipratropium 3ml neb HHN SCH ×3 (03:13→11:29)
[2019-08-22 04:00] VITALS: BP 118/50
--- NOTE | 2019-08-22 06:20 | NUR ---
NURSE NOTES: RESTED WELL, NO SIGNIFICANT CHANGE OF CONDITION NOTED THROUGHOUT THE NIGHT. SAFETY MAINTAINED. NAD.
--- NOTE | 2019-08-22 07:21 | NUR ---
NURSE NOTES: Received report from DIMITRIOS Esquivel. Pt A/O X4, breathing even and unlabored in RA. Denies any pain. No s/sx of acute distress. awaiting to be transferred in m/s. Bed in lowest position, call light within reach. Will continue plan of care.
[2019-08-22 07:31] LABS: BASOPHILS % (AUTO) 0.9 % (0.0-2.0); EOSINOPHILS % (AUTO) 17.5 % (0.0-3.0); HEMATOCRIT 28.1 % (37.0-47.0); HEMOGLOBIN 9.2 G/DL (12.0-16.0); LYMPHOCYTES % (AUTO) 25.6 % (20.0-45.0); MEAN CORPUSCULAR VOLUME 82 FL (80-99); MONOCYTES % (AUTO) 8.8 % (1.0-10.0); NEUTROPHILS % (AUTO) 47.2 % (45.0-75.0); PLATELET COUNT 299 K/UL (150-450); RED BLOOD COUNT 3.41 M/UL (4.20-5.40); RED CELL DISTRIBUTION WIDTH 12.5 % (11.6-14.8); WHITE BLOOD COUNT 10.6 K/UL (4.8-10.8)
[2019-08-22 08:00] VITALS: BP 135/61
[2019-08-22 08:18] LABS: ALANINE AMINOTRANSFERASE 17 U/L (12-78); ALBUMIN/GLOBULIN RATIO 0.9 (1.0-2.7); ALKALINE PHOSPHATASE 101 U/L (46-116); ANION GAP 7 mmol/L (5-15); ASPARTATE AMINO TRANSFERASE 16 U/L (15-37); BILIRUBIN,TOTAL 0.1 MG/DL (0.2-1.0); BLOOD UREA NITROGEN 43 mg/dL (7-18); CARBON DIOXIDE 29 MMOL/L (21-32); CHLORIDE 106 MMOL/L (98-107); CREATININE 1.1 MG/DL (0.55-1.30); POTASSIUM 4.1 MMOL/L (3.5-5.1); SODIUM 142 MMOL/L (136-145)
[2019-08-22] MEDS: Losartan 25mg tab ORAL SCH (09:17)
[2019-08-22] MEDS: Aspirin EC 81mg tab ORAL SCH (09:17)
[2019-08-22] MEDS: Montelukast 10mg tablet ORAL SCH (09:17)
[2019-08-22] MEDS: MEMANTINE 7 MG ORAL SCH (09:17)
[2019-08-22] MEDS: Docusate 100mg cap ORAL SCH (09:18)
[2019-08-22] MEDS: Heparin 5000 units/ml inj SUBQ SCH (09:20)
[2019-08-22] MEDS: Theophylline 80mg/15ml ORAL SCH (09:21)
--- NOTE | 2019-08-22 11:00 | NUR ---
RADIOLOGY DEPT., CHEST X-RAY DONE.-P.DYE
--- NOTE | 2019-08-22 11:12 | Cardiac Electrophysiology PN ---
Assessment/Plan Assessment/Plan 1. Shortness of breath due to combination of CHF and pneumonia Better on Abx. EF 60% and moderate pulmonary HTN. Off Lasix 2. Hypertension. On Losartan 25 mg daily and Norvasc 5 mg daily 3. Chronic obstructive pulmonary disease. On theophylline and Solu-Medrol and Abx 4. Hyperlipidemia. On Pravachol. 5. Azotemia BUN/Cr >40. DW RN Subjective Subjective No more coughing. Wants to go home. Objective Last 24 Hour Vital Signs Date Time Temp Pulse Resp B/P (MAP) Pulse Ox O2 Delivery O2 Flow Rate FiO2 08/22/19 09:18 90 135/61 08/22/19 09:17 135/61 08/22/19 08:27 90 18 99 Room Air 21 72 18 96 08/22/19 08:20 Room Air Room Air 08/22/19 08:00 97.1 84 20 135/61 (85) 95 08/22/19 04:00 98.1 88 16 118/50 (72) 97 08/22/19 03:14 97 18 100 Room Air 21 95 18 100 08/22/19 00:00 97.2 96 16 112/45 (67) 99 08/21/19 23:06 96 18 99 Room Air 21 93 18 98 08/21/19 21:00 Room Air Room Air 08/21/19 20:00 98.1 91 18 139/72 (94) 97 08/21/19 19:26 94 18 99 Room Air 21 92 18 97 08/21/19 16:00 08/21/19 15:57 98.4 95 18 118/52 (74) 96 08/21/19 15:34 90 20 99 Room Air 21 91 20 97 08/21/19 12:00 86 08/21/19 12:00 98.2 94 18 127/59 (81) 95 08/21/19 11:24 82 20 99 Room Air 21 84 20 96 Intake and Output 08/21/19 08/22/19 19:00 07:00 Intake Total 870 ml 540 ml Balance 870 ml 540 ml Intake Oral 870 ml 540 ml # Voids 4 2 Laboratory Tests Test 08/22/19 05:30 White Blood Count 10.6 K/UL (4.8-10.8) Red Blood Count 3.41 M/UL (4.20-5.40) L Hemoglobin 9.2 G/DL (12.0-16.0) L Hematocrit 28.1 % (37.0-47.0) L Mean Corpuscular Volume 82 FL (80-99) Mean Corpuscular Hemoglobin 27.0 PG (27.0-31.0) Mean Corpuscular Hemoglobin Concent 32.8 G/DL (32.0-36.0) Red Cell Distribution Width 12.5 % (11.6-14.8) Platelet Count 299 K/UL (150-450) Mean Platelet Volume 5.7 FL (6.5-10.1) L Neutrophils (%) (Auto) 47.2 % (45.0-75.0) Lymphocytes (%) (Auto) 25.6 % (20.0-45.0) Monocytes (%) (Auto) 8.8 % (1.0-10.0) Eosinophils (%) (Auto) 17.5 % (0.0-3.0) H Basophils (%) (Auto) 0.9 % (0.0-2.0) Sodium Level 142 MMOL/L (136-145) Potassium Level 4.1 MMOL/L (3.5-5.1) Chloride Level 106 MMOL/L (98-107) Carbon Dioxide Level 29 MMOL/L (21-32) Anion Gap 7 mmol/L (5-15) Blood Urea Nitrogen 43 mg/dL (7-18) H Creatinine 1.1 MG/DL (0.55-1.30) Estimat Glomerular Filtration Rate 47.6 mL/min (>60) Glucose Level 119 MG/DL (74-106) H Calcium Level 9.0 MG/DL (8.5-10.1) Total Bilirubin 0.1 MG/DL (0.2-1.0) L Aspartate Amino Transf (AST/SGOT) 16 U/L (15-37) Alanine Aminotransferase (ALT/SGPT) 17 U/L (12-78) Alkaline Phosphatase 101 U/L (46-116) Pro-B-Type Natriuretic Peptide 162 pg/mL (0-125) H Total Protein 6.2 G/DL (6.4-8.2) L Albumin 3.0 G/DL (3.4-5.0) L Globulin 3.2 g/dL Albumin/Globulin Ratio 0.9 (1.0-2.7) L Objective HEAD AND NECK: Mild JVD. LUNGS: Coarse rhonchi and scattered wheezes. CARDIOVASCULAR: Regular S1 and S2 with no gallop or murmur. ABDOMEN: Soft. EXTREMITIES: No pitting edema. Mikey Plascencia MD Aug 22, 2019 11:12
--- NOTE | 2019-08-22 11:45 | Pulmonology Progress Note ---
Assessment/Plan Problems: (1) Asthma exacerbation in COPD (2) HTN (hypertension) (3) Diabetes mellitus Assessment/Plan BUN high agian, will dc home improving slowly check sputum dc steroids sliding scale diabetic diet Subjective ROS Limited/Unobtainable: No Constitutional: Reports: no symptoms HEENT: Repors: no symptoms Respiratory: Reports: no symptoms Allergies: Coded Allergies: No Known Allergies (Unverified , 04/03/17) Objective Last 24 Hour Vital Signs Date Time Temp Pulse Resp B/P (MAP) Pulse Ox O2 Delivery O2 Flow Rate FiO2 08/22/19 11:39 109 18 100 Room Air 21 92 18 96 08/22/19 09:45 72 18 96 Room Air 21 08/22/19 09:18 90 135/61 08/22/19 09:17 135/61 08/22/19 08:27 90 18 99 Room Air 21 72 18 96 08/22/19 08:20 Room Air Room Air 08/22/19 08:00 97.1 84 20 135/61 (85) 95 08/22/19 04:00 98.1 88 16 118/50 (72) 97 08/22/19 03:14 97 18 100 Room Air 21 95 18 100 08/22/19 00:00 97.2 96 16 112/45 (67) 99 08/21/19 23:06 96 18 99 Room Air 21 93 18 98 08/21/19 21:00 Room Air Room Air 08/21/19 20:00 98.1 91 18 139/72 (94) 97 08/21/19 19:26 94 18 99 Room Air 21 92 18 97 08/21/19 16:00 08/21/19 15:57 98.4 95 18 118/52 (74) 96 08/21/19 15:34 90 20 99 Room Air 21 91 20 97 08/21/19 12:00 86 08/21/19 12:00 98.2 94 18 127/59 (81) 95 Intake and Output 08/21/19 08/22/19 19:00 07:00 Intake Total 870 ml 540 ml Balance 870 ml 540 ml Intake Oral 870 ml 540 ml # Voids 4 2 General Appearance: cachetic HEENT: normocephalic, atraumatic Respiratory/Chest: chest wall non-tender, normal breath sounds Breasts: no masses Cardiovascular: normal peripheral pulses Abdomen: normal bowel sounds, soft, non tender Genitourinary: normal external genitalia 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 Laboratory Tests 08/22/19 05:30: White Blood Count 10.6, Red Blood Count 3.41L, Hemoglobin 9.2L, Hematocrit 28.1L , Mean Corpuscular Volume 82, Mean Corpuscular Hemoglobin 27.0, Mean Corpuscular Hemoglobin Concent 32.8, Red Cell Distribution Width 12.5, Platelet Count 299, Mean Platelet Volume 5.7L, Neutrophils (%) (Auto) 47.2, Lymphocytes ( %) (Auto) 25.6, Monocytes (%) (Auto) 8.8, Eosinophils (%) (Auto) 17.5H, Basophils (%) (Auto) 0.9, Sodium Level 142, Potassium Level 4.1, Chloride Level 106, Carbon Dioxide Level 29, Anion Gap 7, Blood Urea Nitrogen 43H, Creatinine 1.1, Estimat Glomerular Filtration Rate 47.6, Glucose Level 119H, Calcium Level 9.0, Total Bilirubin 0.1L, Aspartate Amino Transf (AST/SGOT) 16, Alanine Aminotransferase (ALT/SGPT) 17, Alkaline Phosphatase 101, Pro-B-Type Natriuretic Peptide 162H, Total Protein 6.2L, Albumin 3.0L, Globulin 3.2, Albumin/Globulin Ratio 0.9L Current Medications Medications (Trade) Dose Ordered Sig/Lora Route PRN Reason Start Time Stop Time Status Last Admin Dose Admin Acetaminophen (Tylenol) 650 mg Q4H PRN ORAL Mild Pain (Pain Scale 1-3) 08/16/19 11:30 09/15/19 11:29 Albuterol/ Ipratropium (Albuterol/ Ipratropium) 3 ml Q4HRT HHN 08/18/19 19:00 08/23/19 18:59 08/22/19 11:29 Amlodipine Besylate (Norvasc) 5 mg DAILY ORAL 08/17/19 09:00 09/16/19 08:59 08/22/19 09:18 Aspirin (Ecotrin) 81 mg DAILY ORAL 08/17/19 09:00 09/16/19 08:59 08/22/19 09:17 Dextrose (Dextrose 50%) 25 ml Q30M PRN IV Hypoglycemia 08/16/19 11:30 09/15/19 11:29 Dextrose (Dextrose 50%) 50 ml Q30M PRN IV Hypoglycemia 08/16/19 11:30 09/15/19 11:29 Docusate Sodium (Colace) 100 mg EVERY 12 HOURS ORAL 08/16/19 21:00 09/15/19 20:59 08/22/19 09:18 Famotidine (Pepcid) 20 mg DAILY ORAL 08/17/19 09:00 09/16/19 08:59 08/22/19 09:17 Guaifenesin/ Dextromethorphan (Robitussin DM Syrup) 10 ml Q4H PRN ORAL For Cough 08/16/19 11:30 09/15/19 11:29 08/21/19 11:04 Heparin Sodium (Porcine) (Heparin 5000 units/ml) 5,000 units EVERY 12 HOURS SUBQ 08/16/19 21:00 09/15/19 20:59 08/22/19 09:20 Losartan Potassium (Cozaar) 25 mg DAILY ORAL 08/17/19 09:00 09/16/19 08:59 08/22/19 09:17 Magnesium Hydroxide (Mom) 30 ml HSPRN PRN ORAL Constipation 08/16/19 11:30 09/15/19 11:29 Montelukast Sodium (Singulair) 10 mg DAILY ORAL 08/17/19 09:00 09/16/19 08:59 08/22/19 09:17 Patient Own Medication (Patient's Own Med) 1 ea DAILY ORAL 08/17/19 14:30 09/16/19 14:29 08/22/19 09:17 Pravastatin Sodium (Pravachol) 20 mg BEDTIME ORAL 08/16/19 21:00 09/15/19 20:59 08/21/19 20:46 Temazepam (Restoril) 15 mg DAILYPRN PRN ORAL Insomnia 08/16/19 11:30 08/23/19 11:29 08/20/19 20:56 Theophylline (Theophylline) 100 mg EVERY 12 HOURS ORAL 08/16/19 21:00 09/15/19 20:59 08/22/19 09:21 Dony Eli MD Aug 22, 2019 11:45
[2019-08-22 12:00] VITALS: BP 117/57
--- NOTE | 2019-08-22 12:47 | Diagnostic Imaging Report ---
Indication: Dyspnea Comparison: 08/21/2019 A single view chest radiograph was obtained. Findings: Heart size is normal. Pulmonary vascularity is within normal limits. The aorta is calcified. No definite pleural effusion appreciated. IMPRESSION: No change from the previous day
--- NOTE | 2019-08-22 13:14 | Infectious Diseases Prog Note ---
Assessment/Plan Assessment/Plan Assessment: Afebrile Mild leukocytosis (s/p high dose steroids), SP -2/ U/a neg Bcx NTD Asthma/COPD exacerbation CHF exacerbation -08/17 CXR:Cardiomegaly. Mild central vascular congestion. No focal infiltrate or consolidation. -influenza sc neg -08/16 CXR: Hyperinflated lungs may be COPD. No acute process. sp cx normal resp jolly HTN Dm2 HLD asthma s/p open cholecystectomy 03/2019 s/p RONNIE and BSO CHF s/p b/l cataract surgery arthritis osteoporosis Plan: -Continue to monitor off abx -08/20 SP Azithromycin #5 -08/18 SP Ceftriaxone #3 -f/u cx -Monitor CBC/CMP, temperatures -aspiration precautions Thank you for this consultation. Will continue to follow along with you. Discussed with RN Subjective Allergies: Coded Allergies: No Known Allergies (Unverified , 04/03/17) Subjective afebrile no leukocytosis Objective Vital Signs Last 24 Hour Vital Signs Date Time Temp Pulse Resp B/P (MAP) Pulse Ox O2 Delivery O2 Flow Rate FiO2 08/22/19 11:39 109 18 100 Room Air 21 92 18 96 08/22/19 09:45 72 18 96 Room Air 21 08/22/19 09:18 90 135/61 08/22/19 09:17 135/61 08/22/19 08:27 90 18 99 Room Air 21 72 18 96 08/22/19 08:20 Room Air Room Air 08/22/19 08:00 97.1 84 20 135/61 (85) 95 08/22/19 04:00 98.1 88 16 118/50 (72) 97 08/22/19 03:14 97 18 100 Room Air 21 95 18 100 08/22/19 00:00 97.2 96 16 112/45 (67) 99 08/21/19 23:06 96 18 99 Room Air 21 93 18 98 08/21/19 21:00 Room Air Room Air 08/21/19 20:00 98.1 91 18 139/72 (94) 97 08/21/19 19:26 94 18 99 Room Air 21 92 18 97 08/21/19 16:00 08/21/19 15:57 98.4 95 18 118/52 (74) 96 08/21/19 15:34 90 20 99 Room Air 21 91 20 97 Height (Feet): 4 Height (Inches): 9.00 Weight (Pounds): 87 Objective GENERAL: no apparent distress. HEENT: Extraocular movements are intact. NECK: Supple CHEST: Lungs with decreased breath sounds at bilateral bases. CARDIOVASCULAR: Regular rhythm and rate. S1, S2 normal without murmurs ABDOMEN: Soft, nontender, and nondistended. Positive bowel sounds. no rebound or guarding noted. EXTREMITIES: Negative for clubbing, cyanosis, or edema. Laboratory Tests Test 08/22/19 05:30 White Blood Count 10.6 K/UL (4.8-10.8) Red Blood Count 3.41 M/UL (4.20-5.40) L Hemoglobin 9.2 G/DL (12.0-16.0) L Hematocrit 28.1 % (37.0-47.0) L Mean Corpuscular Volume 82 FL (80-99) Mean Corpuscular Hemoglobin 27.0 PG (27.0-31.0) Mean Corpuscular Hemoglobin Concent 32.8 G/DL (32.0-36.0) Red Cell Distribution Width 12.5 % (11.6-14.8) Platelet Count 299 K/UL (150-450) Mean Platelet Volume 5.7 FL (6.5-10.1) L Neutrophils (%) (Auto) 47.2 % (45.0-75.0) Lymphocytes (%) (Auto) 25.6 % (20.0-45.0) Monocytes (%) (Auto) 8.8 % (1.0-10.0) Eosinophils (%) (Auto) 17.5 % (0.0-3.0) H Basophils (%) (Auto) 0.9 % (0.0-2.0) Sodium Level 142 MMOL/L (136-145) Potassium Level 4.1 MMOL/L (3.5-5.1) Chloride Level 106 MMOL/L (98-107) Carbon Dioxide Level 29 MMOL/L (21-32) Anion Gap 7 mmol/L (5-15) Blood Urea Nitrogen 43 mg/dL (7-18) H Creatinine 1.1 MG/DL (0.55-1.30) Estimat Glomerular Filtration Rate 47.6 mL/min (>60) Glucose Level 119 MG/DL (74-106) H Calcium Level 9.0 MG/DL (8.5-10.1) Total Bilirubin 0.1 MG/DL (0.2-1.0) L Aspartate Amino Transf (AST/SGOT) 16 U/L (15-37) Alanine Aminotransferase (ALT/SGPT) 17 U/L (12-78) Alkaline Phosphatase 101 U/L (46-116) Pro-B-Type Natriuretic Peptide 162 pg/mL (0-125) H Total Protein 6.2 G/DL (6.4-8.2) L Albumin 3.0 G/DL (3.4-5.0) L Globulin 3.2 g/dL Albumin/Globulin Ratio 0.9 (1.0-2.7) L Current Medications Medications (Trade) Dose Ordered Sig/Lora Route PRN Reason Start Time Stop Time Status Last Admin Dose Admin Acetaminophen (Tylenol) 650 mg Q4H PRN ORAL Mild Pain (Pain Scale 1-3) 08/16/19 11:30 09/15/19 11:29 Albuterol/ Ipratropium (Albuterol/ Ipratropium) 3 ml Q4HRT HHN 08/18/19 19:00 08/23/19 18:59 08/22/19 11:29 Amlodipine Besylate (Norvasc) 5 mg DAILY ORAL 08/17/19 09:00 09/16/19 08:59 08/22/19 09:18 Aspirin (Ecotrin) 81 mg DAILY ORAL 08/17/19 09:00 09/16/19 08:59 08/22/19 09:17 Dextrose (Dextrose 50%) 25 ml Q30M PRN IV Hypoglycemia 08/16/19 11:30 09/15/19 11:29 Dextrose (Dextrose 50%) 50 ml Q30M PRN IV Hypoglycemia 08/16/19 11:30 09/15/19 11:29 Docusate Sodium (Colace) 100 mg EVERY 12 HOURS ORAL 08/16/19 21:00 09/15/19 20:59 08/22/19 09:18 Famotidine (Pepcid) 20 mg DAILY ORAL 08/17/19 09:00 09/16/19 08:59 08/22/19 09:17 Guaifenesin/ Dextromethorphan (Robitussin DM Syrup) 10 ml Q4H PRN ORAL For Cough 08/16/19 11:30 09/15/19 11:29 08/21/19 11:04 Heparin Sodium (Porcine) (Heparin 5000 units/ml) 5,000 units EVERY 12 HOURS SUBQ 08/16/19 21:00 09/15/19 20:59 08/22/19 09:20 Losartan Potassium (Cozaar) 25 mg DAILY ORAL 08/17/19 09:00 09/16/19 08:59 08/22/19 09:17 Magnesium Hydroxide (Mom) 30 ml HSPRN PRN ORAL Constipation 08/16/19 11:30 09/15/19 11:29 Montelukast Sodium (Singulair) 10 mg DAILY ORAL 08/17/19 09:00 09/16/19 08:59 08/22/19 09:17 Patient Own Medication (Patient's Own Med) 1 ea DAILY ORAL 08/17/19 14:30 09/16/19 14:29 08/22/19 09:17 Pravastatin Sodium (Pravachol) 20 mg BEDTIME ORAL 08/16/19 21:00 09/15/19 20:59 08/21/19 20:46 Temazepam (Restoril) 15 mg DAILYPRN PRN ORAL Insomnia 08/16/19 11:30 08/23/19 11:29 08/20/19 20:56 Theophylline (Theophylline) 100 mg EVERY 12 HOURS ORAL 08/16/19 21:00 09/15/19 20:59 08/22/19 09:21 Magaly Gilmore M.D. Aug 22, 2019 13:14
--- NOTE | 2019-08-22 14:45 | NUR ---
Patient left the unit in stable condition, accompanied by family members. Belongings taken. Removed tele monitor and IV, no bleeding. DC instructions given to the pt.
--- NOTE | 2019-08-24 16:14 | Discharge Summary ---
Discharge Summary Discharge Summary _ DATE OF ADMISSION: 08/16/2019 DATE OF DISCHARGE: 08/22/2019 ADMITTING MD: Dr. Logan Camargo DISCHARGED BY: Dr. Dony Eli CONSULTANTS: Dr. Magaly Plascencia [facility] HOSPITAL COURSE: Patient is an 83-year-old female who presented with chief complaint of shortness of breath. Symptoms started 3 days prior to admission. The patient began to experience nonproductive cough. She developed shortness of breath. She then presented to [place] emergency room. She has medical history significant for type 2 diabetes, hypertension, hypercholesterolemia, asthma, arthritis and osteoporosis. Upon evaluation at ED, patient was hypoxemic. Blood work did not show any leukocytosis. Hemoglobin 10, hematocrit 32. Electrolytes were normal. Lactic acid was elevated to 2.7. Troponin was negative. Urinalysis negative. Chest x -ray showed hyperinflated lungs. No acute process. She was given nebulizer treatment. She was given magnesium sulfate. She was then admitted for evaluation of shortness of breath. Food Preparation Supervisor consulted. She was placed on O2 support. She was given nebulizer treatment. She was given antitussives. She was started on trial of theophylline. Home meds were resumed. She was started on IV steroids. She was started empirically on ceftriaxone and azithromycin. Nursing Home Manager consulted for management of hypertension and CHF. BNP was 541. She was started on IV diuretics. She was continued on losartan and Norvasc. Patient has hyperlipidemia and was continued on pravastatin. Venous duplex was negative for acute DVT. Influenza swab was negative. Echocardiogram showed ejection fraction of 60% with moderate pulmonary hypertension. Steroids were tapered. There was no evidence of pneumonia. Per ID DC ceftriaxone. Kidney function worsened. Lasix was discontinued. There was mild leukocytosis due to high-dose steroids. Steroids was eventually discontinued. Urinalysis was negative. Blood culture did not isolate any growth. Sputum culture negative. She completed antibiotic treatment. She was eventually discharged home. FINAL DIAGNOSES: Asthma and COPD exacerbation Acute systolic CHF exacerbation Hypertension Diabetes mellitus type 2 Hyperlipidemia Arthritis Osteoporosis Hyperlipidemia Acute kidney injury DISPOSITION: Patient was discharged home. DISCHARGE MEDICATIONS: Refer to Discharge Medication List. DISCHARGE INSTRUCTIONS: Follow-up in a week. I have been assigned to complete a discharge summary on this account, I was not involved with the patient's management.--SAUD Nicholaso,Britni Beal RICE MILLING SUPERVISOR Aug 24, 2019 16:14
== END 2019-08-22 14:47 | disposition home or self-care (01) | DRG 291 ==
LOC: EMR 09:45 → 2E 09:54 → EDBEDREQ 10:34
DX: I11.0 Hypertensive heart disease with heart failure (principal); J96.01 Acute respiratory failure with hypoxia; J44.1 Chronic obstructive pulmonary disease with (acute) exacerbation; N17.9 Acute kidney failure, unspecified; E87.2 Acidosis; J44.0 Chronic obstructive pulmonary disease with (acute) lower respiratory infection; I50.23 Acute on chronic systolic (congestive) heart failure; J20.9 Acute bronchitis, unspecified; E78.5 Hyperlipidemia, unspecified; M19.90 Unspecified osteoarthritis, unspecified site; M81.0 Age-related osteoporosis without current pathological fracture; D72.829 Elevated white blood cell count, unspecified; T38.0X5A Adverse effect of glucocorticoids and synthetic analogues, initial encounter; I27.20 Pulmonary hypertension, unspecified; E86.0 Dehydration; D64.9 Anemia, unspecified
CPT/HCPCS: 36415; 36600; 71045; 80048; 80053; 80061; 81003; 82378; 82550; 82553; 82607; 82728; 82747; 82803; 83036; 83540; 83550; 83605; 83880; 84439; 84443; 84481; 84484; 85025; 86710; 87040; 87070; 87205; 93005; 93306; 93970; 94640; 94664; 96361; 96374; 99291; J7030; J7620